=== PATIENT | female | born 2000 | race Caucasian/White ===

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

== ENCOUNTER 2022-06-08 22:04 | Emergency (ER) | payer MEDICAID, OTHER ==
--- OUTSIDE RECORDS SUMMARY | 2022-06-08 22:24 | EXTERNAL MEDICAL SUMMARY RPT | Continuity of Care Document ---
:2000 Author Organization [facility] Address [address] [place] [address] Phone Allergies and Intolerances date description facility type (no date) No Known Drug Allergies [facility] (unkn own) Encounters No information. Functional Status No information. Immunizations No information. Medications No information. Problems No information. Procedures No information. Results/Labs test date author facility value unit interpret ation Result panel 1 (unknown) (no date) (unknown) (unknown) NOT DETECTED (units ( unknown) unknown) Result panel 2 (unknown) (no (unknown) (unknown) (no value) (units (unk nown) date) unknown) (unknown) (no (unknown) (unknown) (no value) (units (unk nown) date) unknown) (unknown) (no (unknown) (unknown) [address] [place] [address] (units (unknown) date) unknown) (unknown) (no (unknown) (unknown) [place], [place] (units ( unknown) date) [id number] unknown) (unknown) (no (unknown) (unknown) CT Scan Report (units (unknown) date) unknown) (unknown) (no (unknown) (unknown) [facility] (units (unknown) date) unknown) (unknown) (no (unknown) (unknown) Signed (units (unkno wn) date) unknown) (unknown) (no (unknown) (unknown) (no value) (units (unk nown) date) unknown) (unknown) (no (unknown) (unknown) 04/07/22 (units (unkno wn) date) unknown) (unknown) (no (unknown) (unknown) ABDOMEN: (units (unkno wn) date) unknown) (unknown) (no (unknown) (unknown) Abdominal Nodes: (units (unknown) date) No retroperitoneal unknown) or mesenteric adenopathy by size criteria. (unknown) (no (unknown) (unknown) Adrenal Glands: (units (unknown) date) Unremarkable. unknown) (unknown) (no (unknown) (unknown) After the (units (unkn own) date) administration of unknown) intravenous contrast, axial sections acquired from (unknown) (no (unknown) (unknown) Approved by: (units (u nknown) date) David Townsend M.D. on unknown) 04/07/2022 at 16:51 (unknown) (no (unknown) (unknown) Biliary ducts: (units (unknown) date) Unremarkable. unknown) (unknown) (no (unknown) (unknown) Bladder: Filled (units (unknown) date) with contrast unknown) (unknown) (no (unknown) (unknown) Bones: No acute (units (unknown) date) or suspicious unknown) osseous abnormality. (unknown) (no (unknown) (unknown) COMPARISON: None. (units (unknown) date) unknown) (unknown) (no (unknown) (unknown) Dictated by: (units (u nknown) date) David Townsend M.D. on unknown) 04/07/2022 at 16:44 (unknown) (no (unknown) (unknown) FINDINGS: (units (unkn own) date) unknown) (unknown) (no (unknown) (unknown) Gallbladder: (units (u nknown) date) Under distended unknown) (unknown) (no (unknown) (unknown) Heart: No (units (unkn own) date) significant unknown) findings. (unknown) (no (unknown) (unknown) IMPRESSION: No (units (unknown) date) acute abdominal unknown) pelvic pathology. Normal appendix. (unknown) (no (unknown) (unknown) INDICATIONS: ruq (units (unknown) date) pain which unknown) radiates to back, left pelvic pain? (unknown) (no (unknown) (unknown) Image quality: (units (unknown) date) Excellent. unknown) (unknown) (no (unknown) (unknown) Kidneys and (units (un known) date) Ureters: unknown) Unremarkable. (unknown) (no (unknown) (unknown) Likely (units (unkno wn) date) physiologic unknown) appearance of the pelvic organs on CT. If there is concern (unknown) (no (unknown) (unknown) Liver: (units (unkno wn) date) Unremarkable. unknown) (unknown) (no (unknown) (unknown) Lung bases: (units (un known) date) Unremarkable. unknown) (unknown) (no (unknown) (unknown) Miscellaneous: No (units (unknown) date) hernias are seen. unknown) (unknown) (no (unknown) (unknown) PELVIS: (units (unkno wn) date) unknown) (unknown) (no (unknown) (unknown) Pancreas: (units (unkn own) date) Unremarkable. unknown) (unknown) (no (unknown) (unknown) Pelvic Nodes: No (units (unknown) date) enlarged lymph unknown) nodes. (unknown) (no (unknown) (unknown) Pelvic Organs: (units (unknown) date) Likely physiologic unknown) appearance on CT (unknown) (no (unknown) (unknown) Peritoneum: No (units (unknown) date) abnormal unknown) intraperitoneal fluid. No free air. (unknown) (no (unknown) (unknown) Spleen: (units (unkno wn) date) Unremarkable. unknown) (unknown) (no (unknown) (unknown) Stomach and (units (un known) date) Bowel: Normal unknown) appendix. No bowel obstruction. (unknown) (no (unknown) (unknown) TECHNIQUE: (units (unk nown) date) unknown) (unknown) (no (unknown) (unknown) Ventral Wall: (units ( unknown) date) Small fat unknown) containing umbilical hernia. (unknown) (no (unknown) (unknown) Vessels: Aorta (units (unknown) date) and inferior vena unknown) cava are normal in size. (unknown) (no (unknown) (unknown) bases to the (units (u nknown) date) pubic symphysis. unknown) Coronal and sagittal reformats were performed. (unknown) (no (unknown) (unknown) collapsed. (units (unk nown) date) unknown) (unknown) (no (unknown) (unknown) of mA and/or kV (units (unknown) date) according to unknown) patient size. (unknown) (no (unknown) (unknown) pathology, (units (unk nown) date) consider unknown) ultrasound. (unknown) (no (unknown) (unknown) radiation dose (units (unknown) date) reduction, the unknown) following was used: automated exposure control, (unknown) (no (unknown) (unknown) [id number] (units (unkno wn) date) unknown) (unknown) (no (unknown) (unknown) Accession Number: (units (unknown) date) [id number] unknown) (unknown) (no (unknown) (unknown) Age/Sex: 21 / F (units (unknown) date) Date of Service: unknown) (unknown) (no (unknown) (unknown) : 2000 (units (unknown) date) Acct:[id number] unknown) (unknown) (no (unknown) (unknown) For (units (unkno wn) date) unknown) (unknown) (no (unknown) (unknown) Gallbladder is (units (unknown) date) unknown) (unknown) (no (unknown) (unknown) Loc: ED (units (unkno wn) date) unknown) (unknown) (no (unknown) (unknown) Ordering (units (unkno wn) date) Provider: unknown) CrewLindsay (unknown) (no (unknown) (unknown) PROCEDURE: CT (units ( unknown) date) ABDOMEN PELVIS W unknown) CON (unknown) (no (unknown) (unknown) Patient: (units (unkno wn) date) [facility] N unknown) MR#: [id number] (unknown) (no (unknown) (unknown) Procedure: CT (units ( unknown) date) abdomen pelvis w unknown) con (unknown) (no (unknown) (unknown) adjustment (units (unk nown) date) unknown) (unknown) (no (unknown) (unknown) for pelvic (units (unk nown) date) unknown) (unknown) (no (unknown) (unknown) the lung (units (unkno wn) date) unknown) Result panel 3 (unknown) (no date) (unknown) (unknown) Negative (units (unkn own) unknown) Result panel 4 (unknown) (no (unknown) (unknown) (no value) (units (unk nown) date) unknown) (unknown) (no (unknown) (unknown) (no value) (units (unk nown) date) unknown) (unknown) (no (unknown) (unknown) Date of (units (unkno wn) date) Service: unknown) 04/07/22 (unknown) (no (unknown) (unknown) (no value) (units (unk nown) date) unknown) (unknown) (no (unknown) (unknown) 100 mg PO BID (units ( unknown) date) Qty: 20 0RF unknown) (unknown) (no (unknown) (unknown) 150 mg PO Q3D (units ( unknown) date) Qty: 2 2RF unknown) (unknown) (no (unknown) (unknown) Allergies (units (unkn own) date) unknown) (unknown) (no (unknown) (unknown) ED Orders (units (unkn own) date) unknown) (unknown) (no (unknown) (unknown) Emergency (units (unkn own) date) Report unknown) (unknown) (no (unknown) (unknown) [facility] (units (unknown) date) [address] unknown) [place] [address] (unknown) (no (unknown) (unknown) Lab Results (units (un known) date) unknown) (unknown) (no (unknown) (unknown) Point of Care (units ( unknown) date) Testing unknown) (unknown) (no (unknown) (unknown) Previous Rx's (units ( unknown) date) unknown) (unknown) (no (unknown) (unknown) Rx (units (unkno wn) date) Instructions: unknown) (unknown) (no (unknown) (unknown) Urine Dip (units (unkn own) date) unknown) (unknown) (no (unknown) (unknown) Vital Signs - 8 (units (unknown) date) hr unknown) (unknown) (no (unknown) (unknown) may repeat (units (unk nown) date) second dose 72 unknown) hrs after first dose if symptoms persist (unknown) (no (unknown) (unknown) (no value) (units (unk nown) date) unknown) (unknown) (no (unknown) (unknown) 04/07/22 (units (unkno wn) date) Range/Units unknown) (unknown) (no (unknown) (unknown) 13:00 (units (unkno wn) date) unknown) (unknown) (no (unknown) (unknown) doxycycline (units (un known) date) hyclate 100 mg unknown) tablet (unknown) (no (unknown) (unknown) fluconazole 150 (units (unknown) date) mg tablet unknown) (unknown) (no (unknown) (unknown) 04/07/22 (units (unkno wn) date) unknown) (unknown) (no (unknown) (unknown) Medication (units (unk nown) date) Instructions unknown) Recorded (unknown) (no (unknown) (unknown) [id number] (units (unkno wn) date) unknown) (unknown) (no (unknown) (unknown) 04/07/22 13:00 (units (unknown) date) unknown) (unknown) (no (unknown) (unknown) 04/07/22 15:24 (units (unknown) date) unknown) (unknown) (no (unknown) (unknown) 04/07/22 15:36 (units (unknown) date) unknown) (unknown) (no (unknown) (unknown) 13:00 (units (unkno wn) date) unknown) (unknown) (no (unknown) (unknown) Age/Sex: 21 / F (units (unknown) date) unknown) (unknown) (no (unknown) (unknown) Allergy/AdvReac (units (unknown) date) Type Severity unknown) Reaction Status Date / Time (unknown) (no (unknown) (unknown) Bedside Urine (units ( unknown) date) Bilirubin - unknown) Negative (unknown) (no (unknown) (unknown) Bedside Urine (units ( unknown) date) Glucose Negative unknown) (unknown) (no (unknown) (unknown) Bedside Urine (units ( unknown) date) Ketone - unknown) Negative (unknown) (no (unknown) (unknown) Bedside Urine (units ( unknown) date) Leukocytes - unknown) Negative (unknown) (no (unknown) (unknown) Bedside Urine (units ( unknown) date) Nitrite - unknown) Negative (unknown) (no (unknown) (unknown) Bedside Urine (units ( unknown) date) Occult Blood - unknown) Negative (unknown) (no (unknown) (unknown) Bedside Urine (units ( unknown) date) Protein - unknown) Negative (unknown) (no (unknown) (unknown) Bedside Urine (units ( unknown) date) Urobilinogen - unknown) Negative (unknown) (no (unknown) (unknown) Bedside Urine (units ( unknown) date) pH 6.0 unknown) (unknown) (no (unknown) (unknown) Blood Pressure (units (unknown) date) 114/74 04/07/22 unknown) 13:00 (unknown) (no (unknown) (unknown) Blood Pressure (units (unknown) date) 114/74 unknown) (unknown) (no (unknown) (unknown) CBC Auto Diff (units ( unknown) date) [Complete Blood unknown) Count AUTO DIFF] Stat (unknown) (no (unknown) (unknown) CMP (units (unkno wn) date) [Comprehensive unknown) Metabolic Panel] Stat (unknown) (no (unknown) (unknown) COVID19 -Nasal (units (unknown) date) RAPID/Pre-Proc unknown) Stat (unknown) (no (unknown) (unknown) CT abdomen (units (unk nown) date) pelvis w con unknown) Stat (unknown) (no (unknown) (unknown) Cardio: denies (units (unknown) date) chest pain, unknown) palpitations, edema (unknown) (no (unknown) (unknown) Chief (units (unkno wn) date) Complaint: unknown) Abdominal Pain (unknown) (no (unknown) (unknown) Chlamydia (units (unkn own) date) Gonorrhea PCR unknown) -URINE Stat (unknown) (no (unknown) (unknown) Course (units (unkno wn) date) unknown) (unknown) (no (unknown) (unknown) : 2000 (units (unknown) date) Acct:[id number] unknown) (unknown) (no (unknown) (unknown) Departure (units (unkn own) date) unknown) (unknown) (no (unknown) (unknown) Discharge Plan (units (unknown) date) unknown) (unknown) (no (unknown) (unknown) ER Physician: (units ( unknown) date) CrewLindsay unknown) QI SPECIALIST (unknown) (no (unknown) (unknown) Esterase (units (unkno wn) date) unknown) (unknown) (no (unknown) (unknown) Exam (units (unkno wn) date) unknown) (unknown) (no (unknown) (unknown) Eyes: denies (units (u nknown) date) visual changes, unknown) eye pain (unknown) (no (unknown) (unknown) GI: Endorses (units (u nknown) date) right upper unknown) quadrant abdominal pain, denies nausea, vomiting, (unknown) (no (unknown) (unknown) : denies (units (unk nown) date) dysuria, unknown) hematuria, urinary retention, frequency or incontinence, (unknown) (no (unknown) (unknown) General (units (unkno wn) date) unknown) (unknown) (no (unknown) (unknown) General: denies (units (unknown) date) fever, chills, unknown) malaise, sweats, fatigue (unknown) (no (unknown) (unknown) HPI - Abdominal (units (unknown) date) Pain unknown) (unknown) (no (unknown) (unknown) HPI narrative: (units (unknown) date) unknown) (unknown) (no (unknown) (unknown) Head/Neck: (units (unk nown) date) denies headache, unknown) neck pain, dizziness (unknown) (no (unknown) (unknown) History of (units (unk nown) date) Present Illness unknown) (unknown) (no (unknown) (unknown) Initial Vital (units ( unknown) date) Signs unknown) (unknown) (no (unknown) (unknown) Initial Vital (units ( unknown) date) Signs: unknown) (unknown) (no (unknown) (unknown) Lab Data (units (unkno wn) date) unknown) (unknown) (no (unknown) (unknown) Labs: (units (unkno wn) date) unknown) (unknown) (no (unknown) (unknown) Lipase Stat (units (un known) date) unknown) (unknown) (no (unknown) (unknown) MDM - Abdominal (units (unknown) date) Pain unknown) (unknown) (no (unknown) (unknown) MSK: denies (units (un known) date) joint pain, unknown) muscle weakness (unknown) (no (unknown) (unknown) Mode of (units (unkno wn) date) arrival: unknown) Ambulatory (unknown) (no (unknown) (unknown) N gonorrhoeae (units ( unknown) date) DNA (PCR) Not unknown) detected (unknown) (no (unknown) (unknown) Narrative: (units (unk nown) date) unknown) (unknown) (no (unknown) (unknown) Neuro: denies (units ( unknown) date) numbness, unknown) tingling (unknown) (no (unknown) (unknown) No Action (units (unkn own) date) unknown) (unknown) (no (unknown) (unknown) No Known Drug (units ( unknown) date) Allergies unknown) Allergy Verified 04/07/22 13:05 (unknown) (no (unknown) (unknown) Ordered: (units (unkno wn) date) unknown) (unknown) (no (unknown) (unknown) Orders (units (unkno wn) date) unknown) (unknown) (no (unknown) (unknown) Oxygen Delivery (units (unknown) date) Method 04/07/22 unknown) 13:00 (unknown) (no (unknown) (unknown) Oxygen Delivery (units (unknown) date) Method Room Air unknown) (unknown) (no (unknown) (unknown) Patient History (units (unknown) date) unknown) (unknown) (no (unknown) (unknown) Patient states (units (unknown) date) that she had a unknown) miscarriage a few months ago and has not had a (unknown) (no (unknown) (unknown) Patient: (units (unkno wn) date) Sites,[facility] N unknown) MR#: [id number] (unknown) (no (unknown) (unknown) Point of care (units ( unknown) date) testing: unknown) (unknown) (no (unknown) (unknown) Test (units (unknown) date) Results Negative unknown) (unknown) (no (unknown) (unknown) Prescriptions: (units (unknown) date) unknown) (unknown) (no (unknown) (unknown) Pulse Oximetry (units (unknown) date) 99 04/07/22 unknown) 13:00 (unknown) (no (unknown) (unknown) Pulse Oximetry (units (unknown) date) 99 unknown) (unknown) (no (unknown) (unknown) Pulse Rate 86 (units ( unknown) date) 04/07/22 13:00 unknown) (unknown) (no (unknown) (unknown) Pulse Rate 86 (units ( unknown) date) unknown) (unknown) (no (unknown) (unknown) Related Data (units (u nknown) date) unknown) (unknown) (no (unknown) (unknown) Respiratory (units (un known) date) Rate 14 04/07/22 unknown) 13:00 (unknown) (no (unknown) (unknown) Respiratory (units (un known) date) Rate 14 unknown) (unknown) (no (unknown) (unknown) Respiratory: (units (u nknown) date) denies dyspnea, unknown) cough, orthopnea (unknown) (no (unknown) (unknown) Review of (units (unkn own) date) Systems unknown) (unknown) (no (unknown) (unknown) Signed By: (units (unk nown) date) unknown) (unknown) (no (unknown) (unknown) Skin: denies (units (u nknown) date) rash, itching, unknown) skin lesions or other (unknown) (no (unknown) (unknown) Smoking Status: (units (unknown) date) Unknown if ever unknown) smoked (unknown) (no (unknown) (unknown) Smoking Status: (units (unknown) date) Unknown if ever unknown) smoked (unknown) (no (unknown) (unknown) Social History (units (unknown) date) (Reviewed unknown) 04/07/22 @ 15:50 by Lindsay Ruiz [facility]) (unknown) (no (unknown) (unknown) Source: patient (units (unknown) date) unknown) (unknown) (no (unknown) (unknown) Stated (units (unkno wn) date) Complaint: unknown) Stomach pains, Feeling unwell (unknown) (no (unknown) (unknown) Substance Use (units ( unknown) date) Type: does not unknown) use (unknown) (no (unknown) (unknown) Temperature (units (un known) date) 97.9 F 04/07/22 unknown) 13:00 (unknown) (no (unknown) (unknown) Temperature (units (un known) date) 97.9 F unknown) (unknown) (no (unknown) (unknown) This is a (units (unkn own) date) 21-year-old unknown) female who presents to the emergency department (unknown) (no (unknown) (unknown) Time Seen by (units (u nknown) date) Provider: unknown) 04/07/22 12:48 (unknown) (no (unknown) (unknown) Ur Chlamydia (units (u nknown) date) DNA (PCR) Not unknown) detected (unknown) (no (unknown) (unknown) Urine Specific (units (unknown) date) [place] 1.010 unknown) (unknown) (no (unknown) (unknown) Vital Signs (units (un known) date) unknown) (unknown) (no (unknown) (unknown) Vital signs: (units (u nknown) date) unknown) (unknown) (no (unknown) (unknown) Wet Prep Tric (units ( unknown) date) BV Miriam Stat unknown) (unknown) (no (unknown) (unknown) alcohol intake (units (unknown) date) frequency: unknown) holidays/special occasions only (unknown) (no (unknown) (unknown) chest around (units (u nknown) date) her mid axillary unknown) 4th and 5th rib space. She denies constipation, (unknown) (no (unknown) (unknown) come and go and (units (unknown) date) do not have any unknown) relation to food. Patient states that sometimes (unknown) (no (unknown) (unknown) complaining (units (un known) date) intermittent unknown) pain in her right upper chest, and in her pelvis which (unknown) (no (unknown) (unknown) constipation or (units (unknown) date) diarrhea, denies unknown) flank pain (unknown) (no (unknown) (unknown) denies abnormal (units (unknown) date) vaginal unknown) discharge (unknown) (no (unknown) (unknown) discharge, (units (unk nown) date) denies fever, unknown) denies chills, denies flank pain, denies weakness. (unknown) (no (unknown) (unknown) doxycycline (units (un known) date) hyclate 100 mg unknown) tablet 100 mg PO BID #20 tabs 12/29/21 (unknown) (no (unknown) (unknown) fluconazole 150 (units (unknown) date) mg tablet 150 mg unknown) PO Q3D 2 doses #2 tabs 12/29/21 (unknown) (no (unknown) (unknown) history of an (units ( unknown) date) ovarian cyst, unknown) pelvic inflammatory disease on 12/28/2021 and was (unknown) (no (unknown) (unknown) improved (units (unkno wn) date) without unknown) complications. She denies any recent fever or other illness. (unknown) (no (unknown) (unknown) normal period (units ( unknown) date) since, her last unknown) menstrual cycle was March 19, 2022. Patient has a (unknown) (no (unknown) (unknown) she does not (units (u nknown) date) have any nausea, unknown) changes to her stool, she denies abnormal vaginal (unknown) (no (unknown) (unknown) she is starving (units (unknown) date) and other times unknown) she is having sharp pain in the right upper (unknown) (no (unknown) (unknown) treated with (units (un known) date) doxycycline, unknown) fluconazole for Miriam vaginitis and reports that she Result panel 5 (unknown) (no (unknown) (unknown) (no value) (units (unk nown) date) unknown) (unknown) (no (unknown) (unknown) (no value) (units (unk nown) date) unknown) (unknown) (no (unknown) (unknown) Date of Service: (units (unknown) date) 04/07/22 unknown) (unknown) (no (unknown) (unknown) (no value) (units (unk nown) date) unknown) (unknown) (no (unknown) (unknown) 100 mg PO BID (units ( unknown) date) Qty: 20 0RF unknown) (unknown) (no (unknown) (unknown) 150 mg PO Q3D (units ( unknown) date) Qty: 2 2RF unknown) (unknown) (no (unknown) (unknown) Allergies (units (unkn own) date) unknown) (unknown) (no (unknown) (unknown) ED Orders (units (unkn own) date) unknown) (unknown) (no (unknown) (unknown) Emergency Report (units (unknown) date) unknown) (unknown) (no (unknown) (unknown) [facility] (units (unknown) date) [address] [place] [address] unknown) [place] [address] (unknown) (no (unknown) (unknown) Lab Results (units (un known) date) unknown) (unknown) (no (unknown) (unknown) Point of Care (units ( unknown) date) Testing unknown) (unknown) (no (unknown) (unknown) Previous Rx's (units ( unknown) date) unknown) (unknown) (no (unknown) (unknown) Rx Instructions: (units (unknown) date) unknown) (unknown) (no (unknown) (unknown) Urine Dip (units (unkn own) date) unknown) (unknown) (no (unknown) (unknown) Vital Signs - 8 (units (unknown) date) hr unknown) (unknown) (no (unknown) (unknown) may repeat second (units (unknown) date) dose 72 hrs after unknown) first dose if symptoms persist (unknown) (no (unknown) (unknown) (no value) (units (unk nown) date) unknown) (unknown) (no (unknown) (unknown) 04/07/22 (units (unkno wn) date) Range/Units unknown) (unknown) (no (unknown) (unknown) 13:00 (units (unkno wn) date) unknown) (unknown) (no (unknown) (unknown) doxycycline (units (un known) date) hyclate 100 mg unknown) tablet (unknown) (no (unknown) (unknown) fluconazole 150 (units (unknown) date) mg tablet unknown) (unknown) (no (unknown) (unknown) 04/07/22 (units (unkno wn) date) unknown) (unknown) (no (unknown) (unknown) Medication (units (k nown) date) Instructions unknown) Recorded (unknown) (no (unknown) (unknown) [id number] (units (unkno wn) date) unknown) (unknown) (no (unknown) (unknown) 04/07/22 13:00 (units (unknown) date) unknown) (unknown) (no (unknown) (unknown) 04/07/22 15:24 (units (unknown) date) unknown) (unknown) (no (unknown) (unknown) 04/07/22 15:36 (units (unknown) date) unknown) (unknown) (no (unknown) (unknown) 13:00 (units (unkno wn) date) unknown) (unknown) (no (unknown) (unknown) Age/Sex: 21 / F (units (unknown) date) unknown) (unknown) (no (unknown) (unknown) Allergy/AdvReac (units (unknown) date) Type Severity unknown) Reaction Status Date / Time (unknown) (no (unknown) (unknown) Bedside Urine (units ( unknown) date) Bilirubin - unknown) Negative (unknown) (no (unknown) (unknown) Bedside Urine (units ( unknown) date) Glucose Negative unknown) (unknown) (no (unknown) (unknown) Bedside Urine (units ( unknown) date) Ketone - Negative unknown) (unknown) (no (unknown) (unknown) Bedside Urine (units ( unknown) date) Leukocytes - unknown) Negative (unknown) (no (unknown) (unknown) Bedside Urine (units ( unknown) date) Nitrite - Negative unknown) (unknown) (no (unknown) (unknown) Bedside Urine (units ( unknown) date) Occult Blood - unknown) Negative (unknown) (no (unknown) (unknown) Bedside Urine (units ( unknown) date) Protein - Negative unknown) (unknown) (no (unknown) (unknown) Bedside Urine (units ( unknown) date) Urobilinogen - unknown) Negative (unknown) (no (unknown) (unknown) Bedside Urine pH (units (unknown) date) 6.0 unknown) (unknown) (no (unknown) (unknown) Blood Pressure (units (unknown) date) 114/74 04/07/22 unknown) 13:00 (unknown) (no (unknown) (unknown) Blood Pressure (units (unknown) date) 114 unknown) (unknown) (no (unknown) (unknown) CBC Auto Diff (units ( unknown) date) [Complete Blood unknown) Count AUTO DIFF] Stat (unknown) (no (unknown) (unknown) CMP (units (unkno wn) date) [Comprehensive unknown) Metabolic Panel] Stat (unknown) (no (unknown) (unknown) COVID19 -Nasal (units (unknown) date) RAPID/Pre-Proc unknown) Stat (unknown) (no (unknown) (unknown) CT abdomen pelvis (units (unknown) date) w con Stat unknown) (unknown) (no (unknown) (unknown) Cardio: denies (units (unknown) date) chest pain, unknown) palpitations, edema (unknown) (no (unknown) (unknown) Cardiovascular: (units (unknown) date) regular rate and unknown) rhythm, no peripheral edema, warm extremities (unknown) (no (unknown) (unknown) Chief Complaint: (units (unknown) date) Abdominal Pain unknown) (unknown) (no (unknown) (unknown) Chlamydia (units (unkn own) date) Gonorrhea PCR unknown) -URINE Stat (unknown) (no (unknown) (unknown) Course (units (unkno wn) date) unknown) (unknown) (no (unknown) (unknown) : 2000 (units (unknown) date) Acct:[id number] unknown) (unknown) (no (unknown) (unknown) Departure (units (unkn own) date) unknown) (unknown) (no (unknown) (unknown) Discharge Plan (units (unknown) date) unknown) (unknown) (no (unknown) (unknown) ER Physician: (units ( unknown) date) Lindsay Ruiz unknown) QI SPECIALIST (unknown) (no (unknown) (unknown) Esterase (units (unkno wn) date) unknown) (unknown) (no (unknown) (unknown) Exam (units (unkno wn) date) unknown) (unknown) (no (unknown) (unknown) Exam Narrative: (units (unknown) date) unknown) (unknown) (no (unknown) (unknown) Eyes: denies (units (u nknown) date) visual changes, unknown) eye pain (unknown) (no (unknown) (unknown) Eyes: equal round (units (unknown) date) and reactive, unknown) EOMI, conjunctiva normal (unknown) (no (unknown) (unknown) GI: Endorses (units (u nknown) date) right upper unknown) quadrant abdominal pain, denies nausea, vomiting, (unknown) (no (unknown) (unknown) GI: abdomen soft, (units (unknown) date) nontender to unknown) palpation, nondistended, no masses, no exquisite (unknown) (no (unknown) (unknown) : denies (units (unk nown) date) dysuria, unknown) hematuria, urinary retention, frequency or incontinence, (unknown) (no (unknown) (unknown) General (units (unkno wn) date) unknown) (unknown) (no (unknown) (unknown) General: (units (unkno wn) date) cooperative, unknown) comfortable, in no acute distress, well groomed (unknown) (no (unknown) (unknown) General: denies (units (unknown) date) fever, chills, unknown) malaise, sweats, fatigue (unknown) (no (unknown) (unknown) HPI - Abdominal (units (unknown) date) Pain unknown) (unknown) (no (unknown) (unknown) HPI narrative: (units (unknown) date) unknown) (unknown) (no (unknown) (unknown) Head/Neck: denies (units (unknown) date) headache, neck unknown) pain, dizziness (unknown) (no (unknown) (unknown) Head: atraumatic, (units (unknown) date) symmetrical facial unknown) expressions (unknown) (no (unknown) (unknown) History of (units (unk nown) date) Present Illness unknown) (unknown) (no (unknown) (unknown) Independently (units ( unknown) date) reviewed vitals unknown) signs and nursing notes. (unknown) (no (unknown) (unknown) Initial Vital (units ( unknown) date) Signs unknown) (unknown) (no (unknown) (unknown) Initial Vital (units ( unknown) date) Signs: unknown) (unknown) (no (unknown) (unknown) Lab Data (units (unkno wn) date) unknown) (unknown) (no (unknown) (unknown) Labs: (units (unkno wn) date) unknown) (unknown) (no (unknown) (unknown) Lipase Stat (units (un known) date) unknown) (unknown) (no (unknown) (unknown) MDM - Abdominal (units (unknown) date) Pain unknown) (unknown) (no (unknown) (unknown) MSK: denies joint (units (unknown) date) pain, muscle unknown) weakness (unknown) (no (unknown) (unknown) MSK: moves all (units (unknown) date) extremities, unknown) neurovascularly intact, no weakness, normal tone (unknown) (no (unknown) (unknown) Mode of arrival: (units (unknown) date) Ambulatory unknown) (unknown) (no (unknown) (unknown) Mouth/Throat: (units ( unknown) date) moist mucus unknown) membranes (unknown) (no (unknown) (unknown) N gonorrhoeae DNA (units (unknown) date) (PCR) Not detected unknown) (unknown) (no (unknown) (unknown) Narrative (units (unkn own) date) unknown) (unknown) (no (unknown) (unknown) Narrative: (units (unk nown) date) unknown) (unknown) (no (unknown) (unknown) Neck: supple (units (u nknown) date) unknown) (unknown) (no (unknown) (unknown) Neuro: denies (units ( unknown) date) numbness, tingling unknown) (unknown) (no (unknown) (unknown) Neuro: normal (units ( unknown) date) speech and unknown) cognition, A+O x3 (unknown) (no (unknown) (unknown) No Action (units (unkn own) date) unknown) (unknown) (no (unknown) (unknown) No Known Drug (units ( unknown) date) Allergies Allergy unknown) Verified 04/07/22 13:05 (unknown) (no (unknown) (unknown) Nose: nares (units (un known) date) patent, no unknown) rhinorrhea (unknown) (no (unknown) (unknown) Ordered: (units (unkno wn) date) unknown) (unknown) (no (unknown) (unknown) Orders (units (unkno wn) date) unknown) (unknown) (no (unknown) (unknown) Oxygen Delivery (units (unknown) date) Method 04/07/22 unknown) 13:00 (unknown) (no (unknown) (unknown) Oxygen Delivery (units (unknown) date) Method Room Air unknown) (unknown) (no (unknown) (unknown) Patient History (units (unknown) date) unknown) (unknown) (no (unknown) (unknown) Patient reports (units (unknown) date) that she is been unknown) doing warm compresses and this has been (unknown) (no (unknown) (unknown) Patient states (units (unknown) date) that she had a unknown) miscarriage a few months ago and has not had a (unknown) (no (unknown) (unknown) Patient: (units (unkno wn) date) Sites,[facility] N unknown) MR#: [id number] (unknown) (no (unknown) (unknown) Point of care (units ( unknown) date) testing: unknown) (unknown) (no (unknown) (unknown) Test (units (unknown) date) Results Negative unknown) (unknown) (no (unknown) (unknown) Prescriptions: (units (unknown) date) unknown) (unknown) (no (unknown) (unknown) Psych: mental (units ( unknown) date) status is grossly unknown) normal, congruent mood, normal affect, pleasant (unknown) (no (unknown) (unknown) Pulse Oximetry 99 (units (unknown) date) 04/07/22 13:00 unknown) (unknown) (no (unknown) (unknown) Pulse Oximetry 99 (units (unknown) date) unknown) (unknown) (no (unknown) (unknown) Pulse Rate 86 (units ( unknown) date) 04/07/22 13:00 unknown) (unknown) (no (unknown) (unknown) Pulse Rate 86 (units ( unknown) date) unknown) (unknown) (no (unknown) (unknown) Related Data (units (u nknown) date) unknown) (unknown) (no (unknown) (unknown) Respiratory Rate (units (unknown) date) 14 04/07/22 13:00 unknown) (unknown) (no (unknown) (unknown) Respiratory Rate (units (unknown) date) 14 unknown) (unknown) (no (unknown) (unknown) Respiratory: (units (u nknown) date) denies dyspnea, unknown) cough, orthopnea (unknown) (no (unknown) (unknown) Respiratory: (units (u nknown) date) normal effort, unknown) able to speak in complete sentences, no audible (unknown) (no (unknown) (unknown) Review of Systems (units (unknown) date) unknown) (unknown) (no (unknown) (unknown) Signed By: (units (unk nown) date) unknown) (unknown) (no (unknown) (unknown) Skin: brisk (units (un known) date) capillary refill, unknown) no rash, no erythema (unknown) (no (unknown) (unknown) Skin: denies (units (u nknown) date) rash, itching, unknown) skin lesions or other (unknown) (no (unknown) (unknown) Smoking Status: (units (unknown) date) Unknown if ever unknown) smoked (unknown) (no (unknown) (unknown) Smoking Status: (units (unknown) date) Unknown if ever unknown) smoked (unknown) (no (unknown) (unknown) Social History (units (unknown) date) (Reviewed 04/07/22 unknown) @ 15:50 by STEVE Mohan) (unknown) (no (unknown) (unknown) Source: patient (units (unknown) date) unknown) (unknown) (no (unknown) (unknown) Stated Complaint: (units (unknown) date) Stomach pains, unknown) Feeling unwell (unknown) (no (unknown) (unknown) Substance Use (units ( unknown) date) Type: does not use unknown) (unknown) (no (unknown) (unknown) Temperature 97.9 (units (unknown) date) F 04/07/22 13:00 unknown) (unknown) (no (unknown) (unknown) Temperature 97.9 (units (unknown) date) F unknown) (unknown) (no (unknown) (unknown) This is a (units (unkn own) date) 21-year-old female unknown) who presents to the emergency department (unknown) (no (unknown) (unknown) Time Seen by (units (u nknown) date) Provider: 04/07/22 unknown) 12:48 (unknown) (no (unknown) (unknown) Ur Chlamydia DNA (units (unknown) date) (PCR) Not detected unknown) (unknown) (no (unknown) (unknown) Urine Specific (units (unknown) date) [place] 1.010 unknown) (unknown) (no (unknown) (unknown) Vital Signs (units (un known) date) unknown) (unknown) (no (unknown) (unknown) Vital signs: (units (u nknown) date) unknown) (unknown) (no (unknown) (unknown) Wet Prep Tric BV (units (unknown) date) Miriam Stat unknown) (unknown) (no (unknown) (unknown) alcohol intake (units (unknown) date) frequency: unknown) holidays/special occasions only (unknown) (no (unknown) (unknown) and cooperative (units (unknown) date) unknown) (unknown) (no (unknown) (unknown) breath (units (unkno wn) date) unknown) (unknown) (no (unknown) (unknown) chest around her (units (unknown) date) mid axillary 4th unknown) and 5th rib space. She denies constipation, (unknown) (no (unknown) (unknown) come and go and do (units (unknown) date) not have any unknown) relation to food. Patient states that sometimes (unknown) (no (unknown) (unknown) complaining (units (un known) date) intermittent pain unknown) in her right upper chest, and in her pelvis which (unknown) (no (unknown) (unknown) constipation or (units (unknown) date) diarrhea, denies unknown) flank pain (unknown) (no (unknown) (unknown) denies abnormal (units (unknown) date) vaginal discharge unknown) (unknown) (no (unknown) (unknown) discharge, denies (units (unknown) date) fever, denies unknown) chills, denies flank pain, denies weakness. (unknown) (no (unknown) (unknown) doxycycline (units (un known) date) hyclate 100 mg unknown) tablet 100 mg PO BID #20 tabs 12/29/21 (unknown) (no (unknown) (unknown) fluconazole 150 (units (unknown) date) mg tablet 150 mg unknown) PO Q3D 2 doses #2 tabs 12/29/21 (unknown) (no (unknown) (unknown) helpful, she (units (u nknown) date) denies taking any unknown) medication prior to arrival, and states she does (unknown) (no (unknown) (unknown) history of an (units ( unknown) date) ovarian cyst, unknown) pelvic inflammatory disease on 12/28/2021 and was (unknown) (no (unknown) (unknown) improved without (units (unknown) date) complications. She unknown) denies any recent fever or other illness. (unknown) (no (unknown) (unknown) normal period (units ( unknown) date) since, her last unknown) menstrual cycle was March 19, 2022. Patient has a (unknown) (no (unknown) (unknown) not like to take (units (unknown) date) medications. She unknown) states it is worse when she takes a deep (unknown) (no (unknown) (unknown) she does not have (units (unknown) date) any nausea, unknown) changes to her stool, she denies abnormal vaginal (unknown) (no (unknown) (unknown) she is starving (units (unknown) date) and other times unknown) she is having sharp pain in the right upper (unknown) (no (unknown) (unknown) tenderness with (units (unknown) date) exam, without unknown) guarding or rebound. (unknown) (no (unknown) (unknown) treated with (units (un known) date) doxycycline, unknown) fluconazole for Miriam vaginitis and reports that she (unknown) (no (unknown) (unknown) wheezing, (units (unkn own) date) stridor, or rales. unknown) No retractions or tachypnea. Result panel 6 (unknown) (no (unknown) (unknown) (no value) (units (unk nown) date) unknown) (unknown) (no (unknown) (unknown) (no value) (units (unk nown) date) unknown) (unknown) (no (unknown) (unknown) Date of Service: (units (unknown) date) 04/07/22 unknown) (unknown) (no (unknown) (unknown) (no value) (units (unk nown) date) unknown) (unknown) (no (unknown) (unknown) 100 mg PO BID (units ( unknown) date) Qty: 20 0RF unknown) (unknown) (no (unknown) (unknown) 150 mg PO Q3D (units ( unknown) date) Qty: 2 2RF unknown) (unknown) (no (unknown) (unknown) Allergies (units (unkn own) date) unknown) (unknown) (no (unknown) (unknown) ED Orders (units (unkn own) date) unknown) (unknown) (no (unknown) (unknown) Emergency Report (units (unknown) date) unknown) (unknown) (no (unknown) (unknown) [facility] (units (unknown) date) [address] [place] [address] unknown) [place] [address] (unknown) (no (unknown) (unknown) Lab Results (units (un known) date) unknown) (unknown) (no (unknown) (unknown) Point of Care (units ( unknown) date) Testing unknown) (unknown) (no (unknown) (unknown) Previous Rx's (units ( unknown) date) unknown) (unknown) (no (unknown) (unknown) Rx Instructions: (units (unknown) date) unknown) (unknown) (no (unknown) (unknown) Urine Dip (units (unkn own) date) unknown) (unknown) (no (unknown) (unknown) Vital Signs - 8 (units (unknown) date) hr unknown) (unknown) (no (unknown) (unknown) may repeat second (units (unknown) date) dose 72 hrs after unknown) first dose if symptoms persist (unknown) (no (unknown) (unknown) (no value) (units (unk nown) date) unknown) (unknown) (no (unknown) (unknown) 04/07/22 04/07/22 (units (unknown) date) Range/Units unknown) (unknown) (no (unknown) (unknown) 13:00 15:24 (units (un known) date) unknown) (unknown) (no (unknown) (unknown) doxycycline (units (un known) date) hyclate 100 mg unknown) tablet (unknown) (no (unknown) (unknown) fluconazole 150 (units (unknown) date) mg tablet unknown) (unknown) (no (unknown) (unknown) 04/07/22 (units (unkno wn) date) unknown) (unknown) (no (unknown) (unknown) Medication (units (unk nown) date) Instructions unknown) Recorded (unknown) (no (unknown) (unknown) [id number] (units (unkno wn) date) unknown) (unknown) (no (unknown) (unknown) 04/07/22 13:00 (units (unknown) date) unknown) (unknown) (no (unknown) (unknown) 04/07/22 15:24 (units (unknown) date) unknown) (unknown) (no (unknown) (unknown) 04/07/22 15:36 (units (unknown) date) unknown) (unknown) (no (unknown) (unknown) 04/07/22 15:50 (units (unknown) date) unknown) (unknown) (no (unknown) (unknown) 13:00 (units (unkno wn) date) unknown) (unknown) (no (unknown) (unknown) Age/Sex: 21 / F (units (unknown) date) unknown) (unknown) (no (unknown) (unknown) Allergy/AdvReac (units (unknown) date) Type Severity unknown) Reaction Status Date / Time (unknown) (no (unknown) (unknown) Bedside Urine (units ( unknown) date) Bilirubin - unknown) Negative (unknown) (no (unknown) (unknown) Bedside Urine (units ( unknown) date) Glucose Negative unknown) (unknown) (no (unknown) (unknown) Bedside Urine (units ( unknown) date) Ketone - Negative unknown) (unknown) (no (unknown) (unknown) Bedside Urine (units ( unknown) date) Leukocytes - unknown) Negative (unknown) (no (unknown) (unknown) Bedside Urine (units ( unknown) date) Nitrite - Negative unknown) (unknown) (no (unknown) (unknown) Bedside Urine (units ( unknown) date) Occult Blood - unknown) Negative (unknown) (no (unknown) (unknown) Bedside Urine (units ( unknown) date) Protein - Negative unknown) (unknown) (no (unknown) (unknown) Bedside Urine (units ( unknown) date) Urobilinogen - unknown) Negative (unknown) (no (unknown) (unknown) Bedside Urine pH (units (unknown) date) 6.0 unknown) (unknown) (no (unknown) (unknown) Blood Pressure (units (unknown) date) 114/74 04/07/22 unknown) 13:00 (unknown) (no (unknown) (unknown) Blood Pressure (units (unknown) date) 114/74 unknown) (unknown) (no (unknown) (unknown) CBC Auto Diff (units ( unknown) date) [Complete Blood unknown) Count AUTO DIFF] Stat (unknown) (no (unknown) (unknown) CMP (units (unkno wn) date) [Comprehensive unknown) Metabolic Panel] Stat (unknown) (no (unknown) (unknown) COVID19 -Nasal (units (unknown) date) RAPID/Pre-Proc unknown) Stat (unknown) (no (unknown) (unknown) CT abdomen pelvis (units (unknown) date) w con Stat unknown) (unknown) (no (unknown) (unknown) Cardio: denies (units (unknown) date) chest pain, unknown) palpitations, edema (unknown) (no (unknown) (unknown) Cardiovascular: (units (unknown) date) regular rate and unknown) rhythm, no peripheral edema, warm extremities (unknown) (no (unknown) (unknown) Chief Complaint: (units (unknown) date) Abdominal Pain unknown) (unknown) (no (unknown) (unknown) Chlamydia (units (unkn own) date) Gonorrhea PCR unknown) -URINE Stat (unknown) (no (unknown) (unknown) Course (units (unkno wn) date) unknown) (unknown) (no (unknown) (unknown) : 2000 (units (unknown) date) Acct:[id number] unknown) (unknown) (no (unknown) (unknown) Departure (units (unkn own) date) unknown) (unknown) (no (unknown) (unknown) Discharge Plan (units (unknown) date) unknown) (unknown) (no (unknown) (unknown) EKG-12 Lead Stat (units (unknown) date) unknown) (unknown) (no (unknown) (unknown) ER Physician: (units ( unknown) date) Crew,Lindsay Hedrick unknown) QI SPECIALIST (unknown) (no (unknown) (unknown) Esterase (units (unkno wn) date) unknown) (unknown) (no (unknown) (unknown) Exam (units (unkno wn) date) unknown) (unknown) (no (unknown) (unknown) Exam Narrative: (units (unknown) date) unknown) (unknown) (no (unknown) (unknown) Eyes: denies (units (u nknown) date) visual changes, unknown) eye pain (unknown) (no (unknown) (unknown) Eyes: equal round (units (unknown) date) and reactive, unknown) EOMI, conjunctiva normal (unknown) (no (unknown) (unknown) GI: Endorses (units (u nknown) date) right upper unknown) quadrant abdominal pain, denies nausea, vomiting, (unknown) (no (unknown) (unknown) GI: abdomen soft, (units (unknown) date) nontender to unknown) palpation, nondistended, no masses, no exquisite (unknown) (no (unknown) (unknown) : denies (units (unk nown) date) dysuria, unknown) hematuria, urinary retention, frequency or incontinence, (unknown) (no (unknown) (unknown) General (units (unkno wn) date) unknown) (unknown) (no (unknown) (unknown) General: (units (unkno wn) date) cooperative, unknown) comfortable, in no acute distress, well groomed (unknown) (no (unknown) (unknown) General: denies (units (unknown) date) fever, chills, unknown) malaise, sweats, fatigue (unknown) (no (unknown) (unknown) HPI - Abdominal (units (unknown) date) Pain unknown) (unknown) (no (unknown) (unknown) HPI narrative: (units (unknown) date) unknown) (unknown) (no (unknown) (unknown) Head/Neck: denies (units (unknown) date) headache, neck unknown) pain, dizziness (unknown) (no (unknown) (unknown) Head: atraumatic, (units (unknown) date) symmetrical facial unknown) expressions (unknown) (no (unknown) (unknown) History of (units (unk nown) date) Present Illness unknown) (unknown) (no (unknown) (unknown) Independently (units ( unknown) date) reviewed vitals unknown) signs and nursing notes. (unknown) (no (unknown) (unknown) Initial Vital (units ( unknown) date) Signs unknown) (unknown) (no (unknown) (unknown) Initial Vital (units ( unknown) date) Signs: unknown) (unknown) (no (unknown) (unknown) Lab Data (units (unkno wn) date) unknown) (unknown) (no (unknown) (unknown) Labs: (units (unkno wn) date) unknown) (unknown) (no (unknown) (unknown) Lipase Stat (units (un known) date) unknown) (unknown) (no (unknown) (unknown) MDM - Abdominal (units (unknown) date) Pain unknown) (unknown) (no (unknown) (unknown) MDM Narrative (units ( unknown) date) unknown) (unknown) (no (unknown) (unknown) MSK: denies joint (units (unknown) date) pain, muscle unknown) weakness (unknown) (no (unknown) (unknown) MSK: moves all (units (unknown) date) extremities, unknown) neurovascularly intact, no weakness, normal tone (unknown) (no (unknown) (unknown) Medical decision (units (unknown) date) making narrative: unknown) (unknown) (no (unknown) (unknown) Mode of arrival: (units (unknown) date) Ambulatory unknown) (unknown) (no (unknown) (unknown) Mouth/Throat: (units ( unknown) date) moist mucus unknown) membranes (unknown) (no (unknown) (unknown) N gonorrhoeae DNA (units (unknown) date) (PCR) Not detected unknown) (unknown) (no (unknown) (unknown) Narrative (units (unkn own) date) unknown) (unknown) (no (unknown) (unknown) Narrative: (units (unk nown) date) unknown) (unknown) (no (unknown) (unknown) Neck: supple (units (u nknown) date) unknown) (unknown) (no (unknown) (unknown) Neuro: denies (units ( unknown) date) numbness, tingling unknown) (unknown) (no (unknown) (unknown) Neuro: normal (units ( unknown) date) speech and unknown) cognition, A+O x3 (unknown) (no (unknown) (unknown) No Action (units (unkn own) date) unknown) (unknown) (no (unknown) (unknown) No Known Drug (units ( unknown) date) Allergies Allergy unknown) Verified 04/07/22 13:05 (unknown) (no (unknown) (unknown) Nose: nares (units (un known) date) patent, no unknown) rhinorrhea (unknown) (no (unknown) (unknown) Ordered: (units (unkno wn) date) unknown) (unknown) (no (unknown) (unknown) Orders (units (unkno wn) date) unknown) (unknown) (no (unknown) (unknown) Oxygen Delivery (units (unknown) date) Method 04/07/22 unknown) 13:00 (unknown) (no (unknown) (unknown) Oxygen Delivery (units (unknown) date) Method Room Air unknown) (unknown) (no (unknown) (unknown) Patient History (units (unknown) date) unknown) (unknown) (no (unknown) (unknown) Patient reports (units (unknown) date) that she is been unknown) doing warm compresses and this has been (unknown) (no (unknown) (unknown) Patient states (units (unknown) date) that she had a unknown) miscarriage a few months ago and has not had a (unknown) (no (unknown) (unknown) Patient: (units (unkno wn) date) Sites,[facility] unknown) MR#: [id number] (unknown) (no (unknown) (unknown) Point of care (units ( unknown) date) testing: unknown) (unknown) (no (unknown) (unknown) Test (units (unknown) date) Results Negative unknown) (unknown) (no (unknown) (unknown) Prescriptions: (units (unknown) date) unknown) (unknown) (no (unknown) (unknown) Psych: mental (units ( unknown) date) status is grossly unknown) normal, congruent mood, normal affect, pleasant (unknown) (no (unknown) (unknown) Pulse Oximetry 99 (units (unknown) date) 04/07/22 13:00 unknown) (unknown) (no (unknown) (unknown) Pulse Oximetry 99 (units (unknown) date) unknown) (unknown) (no (unknown) (unknown) Pulse Rate 86 (units ( unknown) date) 04/07/22 13:00 unknown) (unknown) (no (unknown) (unknown) Pulse Rate 86 (units ( unknown) date) unknown) (unknown) (no (unknown) (unknown) Related Data (units (u nknown) date) unknown) (unknown) (no (unknown) (unknown) Respiratory Rate (units (unknown) date) 14 04/07/22 13:00 unknown) (unknown) (no (unknown) (unknown) Respiratory Rate (units (unknown) date) 14 unknown) (unknown) (no (unknown) (unknown) Respiratory: (units (u nknown) date) denies dyspnea, unknown) cough, orthopnea (unknown) (no (unknown) (unknown) Respiratory: (units (u nknown) date) normal effort, unknown) able to speak in complete sentences, no audible (unknown) (no (unknown) (unknown) Review of Systems (units (unknown) date) unknown) (unknown) (no (unknown) (unknown) SARS-CoV-2 (PCR) (units (unknown) date) Negative unknown) (Negative) (unknown) (no (unknown) (unknown) Signed By: (units (unk nown) date) unknown) (unknown) (no (unknown) (unknown) Skin: brisk (units (un known) date) capillary refill, unknown) no rash, no erythema (unknown) (no (unknown) (unknown) Skin: denies (units (u nknown) date) rash, itching, unknown) skin lesions or other (unknown) (no (unknown) (unknown) Smoking Status: (units (unknown) date) Unknown if ever unknown) smoked (unknown) (no (unknown) (unknown) Smoking Status: (units (unknown) date) Unknown if ever unknown) smoked (unknown) (no (unknown) (unknown) Social History (units (unknown) date) (Reviewed 04/07/22 unknown) @ 15:50 by STEVE Mohan) (unknown) (no (unknown) (unknown) Source: patient (units (unknown) date) unknown) (unknown) (no (unknown) (unknown) Stated Complaint: (units (unknown) date) Stomach pains, unknown) Feeling unwell (unknown) (no (unknown) (unknown) Substance Use (units ( unknown) date) Type: does not use unknown) (unknown) (no (unknown) (unknown) Temperature 97.9 (units (unknown) date) F 04/07/22 13:00 unknown) (unknown) (no (unknown) (unknown) Temperature 97.9 (units (unknown) date) F unknown) (unknown) (no (unknown) (unknown) This is a (units (unkn own) date) 21-year-old female unknown) who presents to the emergency department (unknown) (no (unknown) (unknown) Time Seen by (units (u nknown) date) Provider: 04/07/22 unknown) 12:48 (unknown) (no (unknown) (unknown) Troponin + CK (units ( unknown) date) Cardiac Panel Stat unknown) (unknown) (no (unknown) (unknown) Ur Chlamydia DNA (units (unknown) date) (PCR) Not detected unknown) (unknown) (no (unknown) (unknown) Urine Specific (units (unknown) date) [place] 1.010 unknown) (unknown) (no (unknown) (unknown) Vital Signs (units (un known) date) unknown) (unknown) (no (unknown) (unknown) Vital signs: (units (u nknown) date) unknown) (unknown) (no (unknown) (unknown) alcohol intake (units (unknown) date) frequency: unknown) holidays/special occasions only (unknown) (no (unknown) (unknown) and cooperative (units (unknown) date) unknown) (unknown) (no (unknown) (unknown) breath (units (unkno wn) date) unknown) (unknown) (no (unknown) (unknown) chest around her (units (unknown) date) mid axillary 4th unknown) and 5th rib space. She denies constipation, (unknown) (no (unknown) (unknown) come and go and do (units (unknown) date) not have any unknown) relation to food. Patient states that sometimes (unknown) (no (unknown) (unknown) complaining (units (un known) date) intermittent pain unknown) in her right upper chest, and in her pelvis which (unknown) (no (unknown) (unknown) complaining of (units (unknown) date) right-sided rib unknown) pain, pelvic pain, irregular periods since her (unknown) (no (unknown) (unknown) constipation or (units (unknown) date) diarrhea, denies unknown) flank pain (unknown) (no (unknown) (unknown) denies abnormal (units (unknown) date) vaginal discharge unknown) (unknown) (no (unknown) (unknown) denies fever, (units ( unknown) date) nausea vomiting, unknown) changes to her stool, shortness of breath, (unknown) (no (unknown) (unknown) discharge, denies (units (unknown) date) fever, denies unknown) chills, denies flank pain, denies weakness. (unknown) (no (unknown) (unknown) doxycycline (units (un known) date) hyclate 100 mg unknown) tablet 100 mg PO BID #20 tabs 12/29/21 (unknown) (no (unknown) (unknown) fluconazole 150 (units (unknown) date) mg tablet 150 mg unknown) PO Q3D 2 doses #2 tabs 12/29/21 (unknown) (no (unknown) (unknown) helpful, she (units (u nknown) date) denies taking any unknown) medication prior to arrival, and states she does (unknown) (no (unknown) (unknown) history of an (units ( unknown) date) ovarian cyst, unknown) pelvic inflammatory disease on 12/28/2021 and was (unknown) (no (unknown) (unknown) improved without (units (unknown) date) complications. She unknown) denies any recent fever or other illness. (unknown) (no (unknown) (unknown) miscarriage a few (units (unknown) date) months ago and unknown) denies any systemic symptoms of illness. She (unknown) (no (unknown) (unknown) normal period (units ( unknown) date) since, her last unknown) menstrual cycle was March 19, 2022. Patient has a (unknown) (no (unknown) (unknown) not like to take (units (unknown) date) medications. She unknown) states it is worse when she takes a deep (unknown) (no (unknown) (unknown) she does not have (units (unknown) date) any nausea, unknown) changes to her stool, she denies abnormal vaginal (unknown) (no (unknown) (unknown) she is starving (units (unknown) date) and other times unknown) she is having sharp pain in the right upper (unknown) (no (unknown) (unknown) tenderness with (units (unknown) date) exam, without unknown) guarding or rebound. (unknown) (no (unknown) (unknown) treated with (units (un known) date) doxycycline, unknown) fluconazole for Miriam vaginitis and reports that she (unknown) (no (unknown) (unknown) wheezing, (units (unkn own) date) imbalance, unknown) dizziness, or any other symptom. (unknown) (no (unknown) (unknown) wheezing, (units (unkn own) date) stridor, or rales. unknown) No retractions or tachypnea. Result panel 7 (unknown) (no date) (unknown) (unknown) 0.9 % (unkn own) (unknown) (no date) (unknown) (unknown) 1.9 % (unkn own) (unknown) (no date) (unknown) (unknown) 10.6 % (unkn own) (unknown) (no date) (unknown) (unknown) 100 /uL (unkn own) (unknown) (no date) (unknown) (unknown) 100 /uL (unkn own) (unknown) (no date) (unknown) (unknown) 12.2 g/dL (unkn own) (unknown) (no date) (unknown) (unknown) 19.4 % (unkn own) (unknown) (no date) (unknown) (unknown) 24.3 PG (unkn own) (unknown) (no date) (unknown) (unknown) 2500 /uL (unkn own) (unknown) (no date) (unknown) (unknown) 302 X10 3/uL (unkn own) (unknown) (no date) (unknown) (unknown) 32.2 % (unkn own) (unknown) (no date) (unknown) (unknown) 35.6 % (unkn own) (unknown) (no date) (unknown) (unknown) 3600 /uL (unkn own) (unknown) (no date) (unknown) (unknown) 38.0 % (unkn own) (unknown) (no date) (unknown) (unknown) 5.03 X10 6/uL (unkn own) (unknown) (no date) (unknown) (unknown) 51.0 % (unkn own) (unknown) (no date) (unknown) (unknown) 7.0 X10 3/uL (unkn own) (unknown) (no date) (unknown) (unknown) 700 /uL (unkn own) (unknown) (no date) (unknown) (unknown) 75.4 fL (unkn own) Result panel 8 (unknown) (no (unknown) (unknown) (no value) (units (unk nown) date) unknown) (unknown) (no (unknown) (unknown) Radiologist's (units ( unknown) date) Impression: unknown) (unknown) (no (unknown) (unknown) *Please continue (units (unknown) date) to take your unknown) regular medications as directed. (unknown) (no (unknown) (unknown) Date of Service: (units (unknown) date) 04/07/22 unknown) (unknown) (no (unknown) (unknown) (no value) (units (unk nown) date) unknown) (unknown) (no (unknown) (unknown) 04/07/22 16:48 (units (unknown) date) unknown) (unknown) (no (unknown) (unknown) 100 mg PO BID (units ( unknown) date) Qty: 20 0RF unknown) (unknown) (no (unknown) (unknown) 150 mg PO Q3D (units ( unknown) date) Qty: 2 2RF unknown) (unknown) (no (unknown) (unknown) Allergies (units (unkn own) date) unknown) (unknown) (no (unknown) (unknown) ED Orders (units (unkn own) date) unknown) (unknown) (no (unknown) (unknown) Emergency Report (units (unknown) date) unknown) (unknown) (no (unknown) (unknown) [facility] (units (unknown) date) [address] unknown) [place] [address] (unknown) (no (unknown) (unknown) Lab Results (units (un known) date) unknown) (unknown) (no (unknown) (unknown) Point of Care (units ( unknown) date) Testing unknown) (unknown) (no (unknown) (unknown) Previous Rx's (units ( unknown) date) unknown) (unknown) (no (unknown) (unknown) Rx Instructions: (units (unknown) date) unknown) (unknown) (no (unknown) (unknown) Urine Dip (units (unkn own) date) unknown) (unknown) (no (unknown) (unknown) Vital Signs - 8 (units (unknown) date) hr unknown) (unknown) (no (unknown) (unknown) [ ] New (units (unkno wn) date) medication unknown) prescriptions sent to your pharmacy: [ ] (unknown) (no (unknown) (unknown) [ ] New (units (unkno wn) date) medication written unknown) as a paper prescription (unknown) (no (unknown) (unknown) [ ] No new (units (unk nown) date) medications given unknown) (unknown) (no (unknown) (unknown) may repeat second (units (unknown) date) dose 72 hrs after unknown) first dose if symptoms persist (unknown) (no (unknown) (unknown) (no value) (units (unk nown) date) unknown) (unknown) (no (unknown) (unknown) 04/07/22 04/07/22 (units (unknown) date) 04/07/22 unknown) Range/Units (unknown) (no (unknown) (unknown) 13:00 15:24 16:48 (units (unknown) date) unknown) (unknown) (no (unknown) (unknown) doxycycline (units (un known) date) hyclate 100 mg unknown) tablet (unknown) (no (unknown) (unknown) fluconazole 150 (units (unknown) date) mg tablet unknown) (unknown) (no (unknown) (unknown) 04/07/22 (units (unkno wn) date) unknown) (unknown) (no (unknown) (unknown) Costochondritis, (units (unknown) date) acute, Muscle unknown) strain (unknown) (no (unknown) (unknown) Medication (units (unk nown) date) Instructions unknown) Recorded (unknown) (no (unknown) (unknown) is (units (unkno wn) date) unknown) (unknown) (no (unknown) (unknown) *If you do not (units (unknown) date) have a primary unknown) care provider please contact [phone] to (unknown) (no (unknown) (unknown) *Please follow up (units (unknown) date) with your primary unknown) care provider in 2-3 days, call for an (unknown) (no (unknown) (unknown) *Return to (units (unk nown) date) Emergency unknown) Department if you should have any new, worsening, or (unknown) (no (unknown) (unknown) *What to do: (units (u nknown) date) unknown) (unknown) (no (unknown) (unknown) *You have been (units (unknown) date) diagnosed with [ ] unknown) (unknown) (no (unknown) (unknown) [id number] (units (unkno wn) date) unknown) (unknown) (no (unknown) (unknown) 04/07/22 13:00 (units (unknown) date) unknown) (unknown) (no (unknown) (unknown) 04/07/22 15:24 (units (unknown) date) unknown) (unknown) (no (unknown) (unknown) 04/07/22 15:36 (units (unknown) date) unknown) (unknown) (no (unknown) (unknown) 04/07/22 15:50 (units (unknown) date) unknown) (unknown) (no (unknown) (unknown) 13:00 (units (unkno wn) date) unknown) (unknown) (no (unknown) (unknown) ? (units (unkno wn) date) unknown) (unknown) (no (unknown) (unknown) ABDOMEN: (units (unkno wn) date) unknown) (unknown) (no (unknown) (unknown) Abdominal Nodes:? (units (unknown) date) No retroperitoneal unknown) or mesenteric adenopathy by size criteria.? (unknown) (no (unknown) (unknown) Activity (units (unkno wn) date) Restrictions/Addit unknown) ional Instructions: (unknown) (no (unknown) (unknown) Adrenal Glands:? (units (unknown) date) Unremarkable.? ? unknown) (unknown) (no (unknown) (unknown) After the (units (unkn own) date) administration of unknown) intravenous contrast, axial sections acquired from (unknown) (no (unknown) (unknown) Age/Sex: 21 / F (units (unknown) date) unknown) (unknown) (no (unknown) (unknown) Allergy/AdvReac (units (unknown) date) Type Severity unknown) Reaction Status Date / Time (unknown) (no (unknown) (unknown) Approved by: (units (u nknown) date) David Townsend M.D. on unknown) 04/07/2022 at 16:51 ? (unknown) (no (unknown) (unknown) Baso # (Auto) 100 (units (unknown) date) (0-100) /uL unknown) (unknown) (no (unknown) (unknown) Baso % (Auto) 0.9 (units (unknown) date) (0-2) % unknown) (unknown) (no (unknown) (unknown) Bedside Urine (units ( unknown) date) Bilirubin - unknown) Negative (unknown) (no (unknown) (unknown) Bedside Urine (units ( unknown) date) Glucose Negative unknown) (unknown) (no (unknown) (unknown) Bedside Urine (units ( unknown) date) Ketone - Negative unknown) (unknown) (no (unknown) (unknown) Bedside Urine (units ( unknown) date) Leukocytes - unknown) Negative (unknown) (no (unknown) (unknown) Bedside Urine (units ( unknown) date) Nitrite - Negative unknown) (unknown) (no (unknown) (unknown) Bedside Urine (units ( unknown) date) Occult Blood - unknown) Negative (unknown) (no (unknown) (unknown) Bedside Urine (units ( unknown) date) Protein - Negative unknown) (unknown) (no (unknown) (unknown) Bedside Urine (units ( unknown) date) Urobilinogen - unknown) Negative (unknown) (no (unknown) (unknown) Bedside Urine pH (units (unknown) date) 6.0 unknown) (unknown) (no (unknown) (unknown) Biliary ducts:? (units (unknown) date) Unremarkable.? ? unknown) (unknown) (no (unknown) (unknown) Bladder:? Filled (units (unknown) date) with contrast unknown) (unknown) (no (unknown) (unknown) Blood Pressure (units (unknown) date) 114/74 04/07/22 unknown) 13:00 (unknown) (no (unknown) (unknown) Blood Pressure (units (unknown) date) unknown) (unknown) (no (unknown) (unknown) Bones:? No acute (units (unknown) date) or suspicious unknown) osseous abnormality. (unknown) (no (unknown) (unknown) CBC Auto Diff (units ( unknown) date) [Complete Blood unknown) Count AUTO DIFF] Stat (unknown) (no (unknown) (unknown) CMP (units (unkno wn) date) [Comprehensive unknown) Metabolic Panel] Stat (unknown) (no (unknown) (unknown) COMPARISON:? (units (u nknown) date) None. unknown) (unknown) (no (unknown) (unknown) COVID19 -Nasal (units (unknown) date) RAPID/Pre-Proc unknown) Stat (unknown) (no (unknown) (unknown) CT abdomen pelvis (units (unknown) date) w con Stat unknown) (unknown) (no (unknown) (unknown) CT scan - (units (unkn own) date) abdomen/pelvis: unknown) (unknown) (no (unknown) (unknown) Cardio: denies (units (unknown) date) chest pain, unknown) palpitations, edema (unknown) (no (unknown) (unknown) Cardiovascular: (units (unknown) date) regular rate and unknown) rhythm, no peripheral edema, warm extremities (unknown) (no (unknown) (unknown) Chief Complaint: (units (unknown) date) Abdominal Pain unknown) (unknown) (no (unknown) (unknown) Chlamydia (units (unkn own) date) Gonorrhea PCR unknown) -URINE Stat (unknown) (no (unknown) (unknown) Clinical (units (unkno wn) date) Impression: unknown) (unknown) (no (unknown) (unknown) Course (units (unkno wn) date) unknown) (unknown) (no (unknown) (unknown) : 2000 (units (unknown) date) Acct:[id number] unknown) (unknown) (no (unknown) (unknown) Departure (units (unkn own) date) unknown) (unknown) (no (unknown) (unknown) Dictated by: (units (u nknown) date) David Townsend M.D. on unknown) 04/07/2022 at 16:44 ? ? (unknown) (no (unknown) (unknown) Discharge Plan (units (unknown) date) unknown) (unknown) (no (unknown) (unknown) EKG-12 Lead Stat (units (unknown) date) unknown) (unknown) (no (unknown) (unknown) ER Physician: (units ( unknown) date) Lindsay Ruiz unknown) QI SPECIALIST (unknown) (no (unknown) (unknown) Eos # (Auto) 100 (units (unknown) date) (0-450) /uL unknown) (unknown) (no (unknown) (unknown) Eos % (Auto) 1.9 (units (unknown) date) L (2-4) % unknown) (unknown) (no (unknown) (unknown) Esterase (units (unkno wn) date) unknown) (unknown) (no (unknown) (unknown) Exam (units (unkno wn) date) unknown) (unknown) (no (unknown) (unknown) Exam Narrative: (units (unknown) date) unknown) (unknown) (no (unknown) (unknown) Eyes: denies (units (u nknown) date) visual changes, unknown) eye pain (unknown) (no (unknown) (unknown) Eyes: equal round (units (unknown) date) and reactive, unknown) EOMI, conjunctiva normal (unknown) (no (unknown) (unknown) FINDINGS:? (units (unk nown) date) unknown) (unknown) (no (unknown) (unknown) For (units (unkno wn) date) unknown) (unknown) (no (unknown) (unknown) GI: Endorses (units (u nknown) date) right upper unknown) quadrant abdominal pain, denies nausea, vomiting, (unknown) (no (unknown) (unknown) GI: abdomen soft, (units (unknown) date) nontender to unknown) palpation, nondistended, no masses, no exquisite (unknown) (no (unknown) (unknown) : denies (units (unk nown) date) dysuria, unknown) hematuria, urinary retention, frequency or incontinence, (unknown) (no (unknown) (unknown) Gallbladder:? (units ( unknown) date) Under distended unknown) (unknown) (no (unknown) (unknown) General (units (unkno wn) date) unknown) (unknown) (no (unknown) (unknown) General: (units (unkno wn) date) cooperative, unknown) comfortable, in no acute distress, well groomed (unknown) (no (unknown) (unknown) General: denies (units (unknown) date) fever, chills, unknown) malaise, sweats, fatigue (unknown) (no (unknown) (unknown) GenericComposite[ (units (unknown) date) Plt Count 302 unknown) (150-400) X10^3/uL ] (unknown) (no (unknown) (unknown) GenericComposite[ (units (unknown) date) RBC 5.03 (4.0-5.2) unknown) X10^6/uL ] (unknown) (no (unknown) (unknown) GenericComposite[ (units (unknown) date) WBC 7.0 (4.5-11.0) unknown) X10^3/uL ] (unknown) (no (unknown) (unknown) HPI - Abdominal (units (unknown) date) Pain unknown) (unknown) (no (unknown) (unknown) HPI narrative: (units (unknown) date) unknown) (unknown) (no (unknown) (unknown) Hct 38.0 (36-46) (units (unknown) date) % unknown) (unknown) (no (unknown) (unknown) Head/Neck: denies (units (unknown) date) headache, neck unknown) pain, dizziness (unknown) (no (unknown) (unknown) Head: atraumatic, (units (unknown) date) symmetrical facial unknown) expressions (unknown) (no (unknown) (unknown) Heart:? No (units (unk nown) date) significant unknown) findings. (unknown) (no (unknown) (unknown) Hgb 12.2 (units (unkno wn) date) (12.0-16.0) g/dL unknown) (unknown) (no (unknown) (unknown) History of (units (unk nown) date) Present Illness unknown) (unknown) (no (unknown) (unknown) IMPRESSION:? No (units (unknown) date) acute abdominal unknown) pelvic pathology.? Normal appendix.? Gallbladder (unknown) (no (unknown) (unknown) INDICATIONS:? ruq (units (unknown) date) pain which unknown) radiates to back, left pelvic pain? (unknown) (no (unknown) (unknown) Image quality:? (units (unknown) date) Excellent.? unknown) (unknown) (no (unknown) (unknown) Imaging Data (units (u nknown) date) unknown) (unknown) (no (unknown) (unknown) Independently (units ( unknown) date) reviewed vitals unknown) signs and nursing notes. (unknown) (no (unknown) (unknown) Initial Vital (units ( unknown) date) Signs unknown) (unknown) (no (unknown) (unknown) Initial Vital (units ( unknown) date) Signs: unknown) (unknown) (no (unknown) (unknown) Instructions: (units ( unknown) date) Muscle Strain, unknown) Costochondritis (unknown) (no (unknown) (unknown) Kidneys and (units (un known) date) Ureters:? unknown) Unremarkable.? ? (unknown) (no (unknown) (unknown) Lab Data (units (unkno wn) date) unknown) (unknown) (no (unknown) (unknown) Labs: (units (unkno wn) date) unknown) (unknown) (no (unknown) (unknown) Likely (units (unkno wn) date) physiologic unknown) appearance of the pelvic organs on CT.? If there is concern (unknown) (no (unknown) (unknown) Lipase Stat (units (un known) date) unknown) (unknown) (no (unknown) (unknown) Liver:? (units (unkno wn) date) Unremarkable.? ? unknown) (unknown) (no (unknown) (unknown) Lung bases:? (units (u nknown) date) Unremarkable. unknown) (unknown) (no (unknown) (unknown) Lymph # (Auto) (units (unknown) date) 2500 (2272-9525) unknown) /uL (unknown) (no (unknown) (unknown) Lymph % (Auto) (units (unknown) date) 35.6 (25-40) % unknown) (unknown) (no (unknown) (unknown) MCH 24.3 L (units (unk nown) date) (26-34) PG unknown) (unknown) (no (unknown) (unknown) MCHC 32.2 (30-36) (units (unknown) date) % unknown) (unknown) (no (unknown) (unknown) MCV 75.4 L (units (unk nown) date) (80-100) fL unknown) (unknown) (no (unknown) (unknown) MDM - Abdominal (units (unknown) date) Pain unknown) (unknown) (no (unknown) (unknown) MDM Narrative (units ( unknown) date) unknown) (unknown) (no (unknown) (unknown) MSK: denies joint (units (unknown) date) pain, muscle unknown) weakness (unknown) (no (unknown) (unknown) MSK: moves all (units (unknown) date) extremities, unknown) neurovascularly intact, no weakness, normal tone (unknown) (no (unknown) (unknown) Medical decision (units (unknown) date) making narrative: unknown) (unknown) (no (unknown) (unknown) Miscellaneous: No (units (unknown) date) hernias are seen. unknown) ? ? (unknown) (no (unknown) (unknown) Mode of arrival: (units (unknown) date) Ambulatory unknown) (unknown) (no (unknown) (unknown) [place] # (Auto) 700 (units (unknown) date) (0-900) /uL unknown) (unknown) (no (unknown) (unknown) [place] % (Auto) (units ( unknown) date) 10.6 (3-14) % unknown) (unknown) (no (unknown) (unknown) Mouth/Throat: (units ( unknown) date) moist mucus unknown) membranes (unknown) (no (unknown) (unknown) N gonorrhoeae DNA (units (unknown) date) (PCR) Not detected unknown) (unknown) (no (unknown) (unknown) Narrative (units (unkn own) date) unknown) (unknown) (no (unknown) (unknown) Narrative: (units (unk nown) date) unknown) (unknown) (no (unknown) (unknown) Neck: supple (units (u nknown) date) unknown) (unknown) (no (unknown) (unknown) Neuro: denies (units ( unknown) date) numbness, tingling unknown) (unknown) (no (unknown) (unknown) Neuro: normal (units ( unknown) date) speech and unknown) cognition, A+O x3 (unknown) (no (unknown) (unknown) Neut # (Auto) (units ( unknown) date) 3600 (1034-5952) unknown) /uL (unknown) (no (unknown) (unknown) Neut % (Auto) (units ( unknown) date) 51.0 (50-75) % unknown) (unknown) (no (unknown) (unknown) No Action (units (unkn own) date) unknown) (unknown) (no (unknown) (unknown) No Known Drug (units ( unknown) date) Allergies Allergy unknown) Verified 04/07/22 13:05 (unknown) (no (unknown) (unknown) Nose: nares (units (un known) date) patent, no unknown) rhinorrhea (unknown) (no (unknown) (unknown) Ordered: (units (unkno wn) date) unknown) (unknown) (no (unknown) (unknown) Orders (units (unkno wn) date) unknown) (unknown) (no (unknown) (unknown) Oxygen Delivery (units (unknown) date) Method 04/07/22 unknown) 13:00 (unknown) (no (unknown) (unknown) Oxygen Delivery (units (unknown) date) Method Room Air unknown) (unknown) (no (unknown) (unknown) PELVIS: (units (unkno wn) date) unknown) (unknown) (no (unknown) (unknown) PROCEDURE:? CT (units (unknown) date) ABDOMEN PELVIS W unknown) CON (unknown) (no (unknown) (unknown) Pancreas:? (units (unk nown) date) Unremarkable.? ? unknown) (unknown) (no (unknown) (unknown) Patient (units (unkno wn) date) Disposition: Home unknown) (unknown) (no (unknown) (unknown) Patient History (units (unknown) date) unknown) (unknown) (no (unknown) (unknown) Patient reports (units (unknown) date) that she is been unknown) doing warm compresses and this has been (unknown) (no (unknown) (unknown) Patient states (units (unknown) date) that she had a unknown) miscarriage a few months ago and has not had a (unknown) (no (unknown) (unknown) Patient: (units (unkno wn) date) Sites,[place] N unknown) MR#: [id number] (unknown) (no (unknown) (unknown) Pelvic Nodes: No (units (unknown) date) enlarged lymph unknown) nodes.? (unknown) (no (unknown) (unknown) Pelvic Organs:? (units (unknown) date) Likely physiologic unknown) appearance on CT (unknown) (no (unknown) (unknown) Peritoneum:? No (units (unknown) date) abnormal unknown) intraperitoneal fluid.? No free air.? (unknown) (no (unknown) (unknown) Point of care (units ( unknown) date) testing: unknown) (unknown) (no (unknown) (unknown) Test (units (unknown) date) Results Negative unknown) (unknown) (no (unknown) (unknown) Prescriptions: (units (unknown) date) unknown) (unknown) (no (unknown) (unknown) Psych: mental (units ( unknown) date) status is grossly unknown) normal, congruent mood, normal affect, pleasant (unknown) (no (unknown) (unknown) Pulse Oximetry 99 (units (unknown) date) 04/07/22 13:00 unknown) (unknown) (no (unknown) (unknown) Pulse Oximetry 99 (units (unknown) date) unknown) (unknown) (no (unknown) (unknown) Pulse Rate 86 (units ( unknown) date) 04/07/22 13:00 unknown) (unknown) (no (unknown) (unknown) Pulse Rate 86 (units ( unknown) date) unknown) (unknown) (no (unknown) (unknown) RDW 19.4 H (units (unk nown) date) (11.6-14.8) % unknown) (unknown) (no (unknown) (unknown) Related Data (units (u nknown) date) unknown) (unknown) (no (unknown) (unknown) Respiratory Rate (units (unknown) date) 14 04/07/22 13:00 unknown) (unknown) (no (unknown) (unknown) Respiratory Rate (units (unknown) date) 14 unknown) (unknown) (no (unknown) (unknown) Respiratory: (units (u nknown) date) denies dyspnea, unknown) cough, orthopnea (unknown) (no (unknown) (unknown) Respiratory: (units (u nknown) date) normal effort, unknown) able to speak in complete sentences, no audible (unknown) (no (unknown) (unknown) Result diagrams: (units (unknown) date) unknown) (unknown) (no (unknown) (unknown) Review of Systems (units (unknown) date) unknown) (unknown) (no (unknown) (unknown) SARS-CoV-2 (PCR) (units (unknown) date) Negative unknown) (Negative) (unknown) (no (unknown) (unknown) Signed By: (units (unk nown) date) unknown) (unknown) (no (unknown) (unknown) Skin: brisk (units (un known) date) capillary refill, unknown) no rash, no erythema (unknown) (no (unknown) (unknown) Skin: denies (units (u nknown) date) rash, itching, unknown) skin lesions or other (unknown) (no (unknown) (unknown) Smoking Status: (units (unknown) date) Unknown if ever unknown) smoked (unknown) (no (unknown) (unknown) Smoking Status: (units (unknown) date) Unknown if ever unknown) smoked (unknown) (no (unknown) (unknown) Social History (units (unknown) date) (Reviewed 04/07/22 unknown) @ 15:50 by Lindsay Ruiz [facility]) (unknown) (no (unknown) (unknown) Source: patient (units (unknown) date) unknown) (unknown) (no (unknown) (unknown) Spleen:? (units (unkno wn) date) Unremarkable.? ? unknown) (unknown) (no (unknown) (unknown) Stated Complaint: (units (unknown) date) Stomach pains, unknown) Feeling unwell (unknown) (no (unknown) (unknown) Stomach and (units (un known) date) Bowel:? Normal unknown) appendix.? No bowel obstruction. (unknown) (no (unknown) (unknown) Substance Use (units ( unknown) date) Type: does not use unknown) (unknown) (no (unknown) (unknown) TECHNIQUE:? (units (un known) date) unknown) (unknown) (no (unknown) (unknown) Temperature 97.9 (units (unknown) date) F 04/07/22 13:00 unknown) (unknown) (no (unknown) (unknown) Temperature 97.9 (units (unknown) date) F unknown) (unknown) (no (unknown) (unknown) This is a (units (unkn own) date) 21-year-old female unknown) who presents to the emergency department (unknown) (no (unknown) (unknown) Time Seen by (units (u nknown) date) Provider: 04/07/22 unknown) 12:48 (unknown) (no (unknown) (unknown) Troponin + CK (units ( unknown) date) Cardiac Panel Stat unknown) (unknown) (no (unknown) (unknown) Ur Chlamydia DNA (units (unknown) date) (PCR) Not detected unknown) (unknown) (no (unknown) (unknown) Urine Specific (units (unknown) date) [place] 1.010 unknown) (unknown) (no (unknown) (unknown) Ventral Wall:? (units (unknown) date) Small fat unknown) containing umbilical hernia. (unknown) (no (unknown) (unknown) Vessels:? Aorta (units (unknown) date) and inferior vena unknown) cava are normal in size.? (unknown) (no (unknown) (unknown) Vital Signs (units (un known) date) unknown) (unknown) (no (unknown) (unknown) Vital signs: (units (u nknown) date) unknown) (unknown) (no (unknown) (unknown) [Embedded Image (units (unknown) date) Not Available] unknown) (unknown) (no (unknown) (unknown) adjustment (units (unk nown) date) unknown) (unknown) (no (unknown) (unknown) alcohol intake (units (unknown) date) frequency: unknown) holidays/special occasions only (unknown) (no (unknown) (unknown) and cooperative (units (unknown) date) unknown) (unknown) (no (unknown) (unknown) appointment. Let (units (unknown) date) them know you were unknown) seen in the Emergency Department and that we (unknown) (no (unknown) (unknown) asked that you be (units (unknown) date) seen for unknown) follow-up. We will electronically transmit a record (unknown) (no (unknown) (unknown) bases to the (units (u nknown) date) pubic symphysis.? unknown) Coronal and sagittal reformats were performed.? (unknown) (no (unknown) (unknown) breath (units (unkno wn) date) unknown) (unknown) (no (unknown) (unknown) chest around her (units (unknown) date) mid axillary 4th unknown) and 5th rib space. She denies constipation, (unknown) (no (unknown) (unknown) collapsed. (units (unk nown) date) unknown) (unknown) (no (unknown) (unknown) come and go and do (units (unknown) date) not have any unknown) relation to food. Patient states that sometimes (unknown) (no (unknown) (unknown) complaining (units (un known) date) intermittent pain unknown) in her right upper chest, and in her pelvis which (unknown) (no (unknown) (unknown) complaining of (units (unknown) date) right-sided rib unknown) pain, pelvic pain, irregular periods since her (unknown) (no (unknown) (unknown) concerning (units (unk nown) date) symptoms, such as unknown) [fever greater than 101F, chills, worsening pain, (unknown) (no (unknown) (unknown) constipation or (units (unknown) date) diarrhea, denies unknown) flank pain (unknown) (no (unknown) (unknown) denies abnormal (units (unknown) date) vaginal discharge unknown) (unknown) (no (unknown) (unknown) denies fever, (units ( unknown) date) nausea vomiting, unknown) changes to her stool, shortness of breath, (unknown) (no (unknown) (unknown) discharge, denies (units (unknown) date) fever, denies unknown) chills, denies flank pain, denies weakness. (unknown) (no (unknown) (unknown) doxycycline (units (un known) date) hyclate 100 mg unknown) tablet 100 mg PO BID #20 tabs 12/29/21 (unknown) (no (unknown) (unknown) establish care (units (unknown) date) with one of the unknown) [facility] primary care providers. (unknown) (no (unknown) (unknown) fluconazole 150 (units (unknown) date) mg tablet 150 mg unknown) PO Q3D 2 doses #2 tabs 12/29/21 (unknown) (no (unknown) (unknown) for pelvic (units (unk nown) date) unknown) (unknown) (no (unknown) (unknown) helpful, she (units (u nknown) date) denies taking any unknown) medication prior to arrival, and states she does (unknown) (no (unknown) (unknown) history of an (units ( unknown) date) ovarian cyst, unknown) pelvic inflammatory disease on 12/28/2021 and was (unknown) (no (unknown) (unknown) improved without (units (unknown) date) complications. She unknown) denies any recent fever or other illness. (unknown) (no (unknown) (unknown) miscarriage a few (units (unknown) date) months ago and unknown) denies any systemic symptoms of illness. She (unknown) (no (unknown) (unknown) normal period (units ( unknown) date) since, her last unknown) menstrual cycle was March 19, 2022. Patient has a (unknown) (no (unknown) (unknown) not like to take (units (unknown) date) medications. She unknown) states it is worse when she takes a deep (unknown) (no (unknown) (unknown) of mA and/or kV (units (unknown) date) according to unknown) patient size.? (unknown) (no (unknown) (unknown) of today's note (units (unknown) date) if your PCP is in unknown) our system (unknown) (no (unknown) (unknown) pathology, (units (unk nown) date) consider unknown) ultrasound.? (unknown) (no (unknown) (unknown) persistent (units (unk nown) date) vomiting or other unknown) bothersome symptoms]. (unknown) (no (unknown) (unknown) radiation dose (units (unknown) date) reduction, the unknown) following was used:? automated exposure control, (unknown) (no (unknown) (unknown) she does not have (units (unknown) date) any nausea, unknown) changes to her stool, she denies abnormal vaginal (unknown) (no (unknown) (unknown) she is starving (units (unknown) date) and other times unknown) she is having sharp pain in the right upper (unknown) (no (unknown) (unknown) tenderness with (units (unknown) date) exam, without unknown) guarding or rebound. (unknown) (no (unknown) (unknown) the lung (units (unkno wn) date) unknown) (unknown) (no (unknown) (unknown) treated with (units (un known) date) doxycycline, unknown) fluconazole for Miriam vaginitis and reports that she (unknown) (no (unknown) (unknown) wheezing, (units (unkn own) date) imbalance, unknown) dizziness, or any other symptom. (unknown) (no (unknown) (unknown) wheezing, (units (unkn own) date) stridor, or rales. unknown) No retractions or tachypnea. Result panel 9 (unknown) (no date) (unknown) (unknown) 56 U/L (unkn own) (unknown) (no date) (unknown) (unknown) Test not % (unkn own) performed (unknown) (no date) (unknown) (unknown) Test not ng/mL (unkn own) performed Result panel 10 (unknown) (no date) (unknown) (unknown) < 0.012 ng/mL (unkn own) (unknown) (no date) (unknown) (unknown) 56 U/L (unkn own) (unknown) (no date) (unknown) (unknown) Test not % (unkn own) performed (unknown) (no date) (unknown) (unknown) Test not ng/mL (unkn own) performed Result panel 11 (unknown) (no date) (unknown) (unknown) > 60 mL/min (unkn own) (unknown) (no date) (unknown) (unknown) 0.2 mg/dL (unkn own) (unknown) (no date) (unknown) (unknown) 0.67 mg/dL (unkn own) (unknown) (no date) (unknown) (unknown) 1.5 (units unknown) (unknown) (unknown) (no date) (unknown) (unknown) 106 mmol/L (unkn own) (unknown) (no date) (unknown) (unknown) 11.9 (units unknown) (unknown) (unknown) (no date) (unknown) (unknown) 13 IU/L (unkn own) (unknown) (no date) (unknown) (unknown) 136 mmol/L (unkn own) (unknown) (no date) (unknown) (unknown) 24 mmol/L (unkn own) (unknown) (no date) (unknown) (unknown) 3.0 g/dL (unkn own) (unknown) (no date) (unknown) (unknown) 33 IU/L (unkn own) (unknown) (no date) (unknown) (unknown) 4.2 mmol/L (unkn own) (unknown) (no date) (unknown) (unknown) 4.4 g/dL (unkn own) (unknown) (no date) (unknown) (unknown) 66 U/L (unkn own) (unknown) (no date) (unknown) (unknown) 7.4 g/dL (unkn own) (unknown) (no date) (unknown) (unknown) 8 mg/dL (unkn own) (unknown) (no date) (unknown) (unknown) 80 U/L (unkn own) (unknown) (no date) (unknown) (unknown) 9.1 mg/dL (unkn own) (unknown) (no date) (unknown) (unknown) 91 mg/dL (unkn own) Result panel 12 (unknown) (no (unknown) (unknown) (no value) (units (unk nown) date) unknown) (unknown) (no (unknown) (unknown) Radiologist's (units ( unknown) date) Impression: unknown) (unknown) (no (unknown) (unknown) *Please continue (units (unknown) date) to take your unknown) regular medications as directed. (unknown) (no (unknown) (unknown) Date of Service: (units (unknown) date) 04/07/22 unknown) (unknown) (no (unknown) (unknown) (no value) (units (unk nown) date) unknown) (unknown) (no (unknown) (unknown) <Electronically (units (unknown) date) signed by Lindsay horton) [facility]> (unknown) (no (unknown) (unknown) 04/07/22 16:48 (units (unknown) date) unknown) (unknown) (no (unknown) (unknown) 04/07/22 1833 (units ( unknown) date) unknown) (unknown) (no (unknown) (unknown) 100 mg PO BID (units ( unknown) date) Qty: 20 0RF unknown) (unknown) (no (unknown) (unknown) 150 mg PO Q3D (units ( unknown) date) Qty: 2 2RF unknown) (unknown) (no (unknown) (unknown) Allergies (units (unkn own) date) unknown) (unknown) (no (unknown) (unknown) ED Orders (units (unkn own) date) unknown) (unknown) (no (unknown) (unknown) Emergency Report (units (unknown) date) unknown) (unknown) (no (unknown) (unknown) [facility] (units (unknown) date) [address] unknown) [place] [address] (unknown) (no (unknown) (unknown) Lab Results (units (un known) date) unknown) (unknown) (no (unknown) (unknown) Point of Care (units ( unknown) date) Testing unknown) (unknown) (no (unknown) (unknown) Previous Rx's (units ( unknown) date) unknown) (unknown) (no (unknown) (unknown) Rx Instructions: (units (unknown) date) unknown) (unknown) (no (unknown) (unknown) Urine Dip (units (unkn own) date) unknown) (unknown) (no (unknown) (unknown) Vital Signs - 8 (units (unknown) date) hr unknown) (unknown) (no (unknown) (unknown) [ ] New (units (unkno wn) date) medication unknown) prescriptions sent to your pharmacy: [ ] (unknown) (no (unknown) (unknown) [ ] New (units (unkno wn) date) medication written unknown) as a paper prescription (unknown) (no (unknown) (unknown) [x ] No new (units (un known) date) medications given unknown) (unknown) (no (unknown) (unknown) may repeat second (units (unknown) date) dose 72 hrs after unknown) first dose if symptoms persist (unknown) (no (unknown) (unknown) (no value) (units (unk nown) date) unknown) (unknown) (no (unknown) (unknown) 04/07/22 04/07/22 (units (unknown) date) 04/07/22 unknown) Range/Units (unknown) (no (unknown) (unknown) 04/07/22 04/07/22 (units (unknown) date) Range/Units unknown) (unknown) (no (unknown) (unknown) 13:00 15:24 16:48 (units (unknown) date) unknown) (unknown) (no (unknown) (unknown) 16:48 16:48 (units (un known) date) unknown) (unknown) (no (unknown) (unknown) doxycycline (units (un known) date) hyclate 100 mg unknown) tablet (unknown) (no (unknown) (unknown) fluconazole 150 (units (unknown) date) mg tablet unknown) (unknown) (no (unknown) (unknown) 04/07/22 (units (unkno wn) date) unknown) (unknown) (no (unknown) (unknown) Costochondritis, (units (unknown) date) acute, Muscle unknown) strain (unknown) (no (unknown) (unknown) Medication (units (unk nown) date) Instructions unknown) Recorded (unknown) (no (unknown) (unknown) Try not to lay (units (unknown) date) down and be stiff, unknown) take deep breath cough and clear your lungs (unknown) (no (unknown) (unknown) abdomen pelvis (units (unknown) date) was obtained for unknown) pain symptom which patient reports as moving (unknown) (no (unknown) (unknown) appear normal, (units (unknown) date) there are no unknown) ovarian cysts or other abdominal findings that are (unknown) (no (unknown) (unknown) but could be (units (u nknown) date) related to small unknown) ovarian cyst which did not show up on imaging. (unknown) (no (unknown) (unknown) closely with (units (u nknown) date) outpatient unknown) providers as instructed. Patient understands plan and (unknown) (no (unknown) (unknown) develop a fever, (units (unknown) date) please test unknown) yourself for COVID and stay hydrated, treat (unknown) (no (unknown) (unknown) if this does not (units (unknown) date) improve. Patient unknown) is appropriate and amenable to discharge (unknown) (no (unknown) (unknown) is (units (unkno wn) date) unknown) (unknown) (no (unknown) (unknown) muscular strain, (units (unknown) date) pelvic pain unknown) unrelated to infection, or other non emergent (unknown) (no (unknown) (unknown) no mesenteric (units ( unknown) date) adenopathy or unknown) retroperitoneal adenopathy. On exam, patient has (unknown) (no (unknown) (unknown) not to have any (units (unknown) date) significant unknown) exertional activity until it starts to get better. (unknown) (no (unknown) (unknown) *If you do not (units (unknown) date) have a primary unknown) care provider please contact [phone] to (unknown) (no (unknown) (unknown) *Please follow up (units (unknown) date) with your primary unknown) care provider in 2-3 days, call for an (unknown) (no (unknown) (unknown) *Return to (units (unk nown) date) Emergency unknown) Department if you should have any new, worsening, or (unknown) (no (unknown) (unknown) *What to do: (units (u nknown) date) unknown) (unknown) (no (unknown) (unknown) *You have been (units (unknown) date) diagnosed with unknown) abdominal pain without known cause, your CT (unknown) (no (unknown) (unknown) [id number] (units (unkno wn) date) unknown) (unknown) (no (unknown) (unknown) 04/07/22 13:00 (units (unknown) date) unknown) (unknown) (no (unknown) (unknown) 04/07/22 15:24 (units (unknown) date) unknown) (unknown) (no (unknown) (unknown) 04/07/22 15:36 (units (unknown) date) unknown) (unknown) (no (unknown) (unknown) 04/07/22 15:50 (units (unknown) date) unknown) (unknown) (no (unknown) (unknown) 04/07/22 16:48 (units (unknown) date) unknown) (unknown) (no (unknown) (unknown) 13:00 04/07/22 (units (unknown) date) unknown) (unknown) (no (unknown) (unknown) 17:36 (units (unkno wn) date) unknown) (unknown) (no (unknown) (unknown) ? (units (unkno wn) date) unknown) (unknown) (no (unknown) (unknown) ABDOMEN: (units (unkno wn) date) unknown) (unknown) (no (unknown) (unknown) ALT (<35) IU/L (units (unknown) date) unknown) (unknown) (no (unknown) (unknown) ALT 13 (<35) IU/L (units (unknown) date) unknown) (unknown) (no (unknown) (unknown) AST (14-36) IU/L (units (unknown) date) unknown) (unknown) (no (unknown) (unknown) AST 33 (14-36) (units (unknown) date) IU/L unknown) (unknown) (no (unknown) (unknown) Abdominal Nodes:? (units (unknown) date) No retroperitoneal unknown) or mesenteric adenopathy by size criteria.? (unknown) (no (unknown) (unknown) Activity (units (unkno wn) date) Restrictions/Addit unknown) ional Instructions: (unknown) (no (unknown) (unknown) Adrenal Glands:? (units (unknown) date) Unremarkable.? ? unknown) (unknown) (no (unknown) (unknown) After the (units (unkn own) date) administration of unknown) intravenous contrast, axial sections acquired from (unknown) (no (unknown) (unknown) Age/Sex: 21 / F (units (unknown) date) unknown) (unknown) (no (unknown) (unknown) Albumin (3.5-5.0) (units (unknown) date) g/dL unknown) (unknown) (no (unknown) (unknown) Albumin 4.4 (units (un known) date) (3.5-5.0) g/dL unknown) (unknown) (no (unknown) (unknown) Albumin/Globulin (units (unknown) date) Ratio (1.0-2.8) unknown) (unknown) (no (unknown) (unknown) Albumin/Globulin (units (unknown) date) Ratio 1.5 unknown) (1.0-2.8) (unknown) (no (unknown) (unknown) Alkaline (units (unkno wn) date) Phosphatase unknown) (38-126) U/L (unknown) (no (unknown) (unknown) Alkaline (units (unkno wn) date) Phosphatase 66 unknown) (38-126) U/L (unknown) (no (unknown) (unknown) Allergy/AdvReac (units (unknown) date) Type Severity unknown) Reaction Status Date / Time (unknown) (no (unknown) (unknown) Approved by: (units (u nknown) date) David Townsend M.D. on unknown) 04/07/2022 at 16:51 ? (unknown) (no (unknown) (unknown) BUN (7-17) mg/dL (units (unknown) date) unknown) (unknown) (no (unknown) (unknown) BUN 8 (7-17) (units (u nknown) date) mg/dL unknown) (unknown) (no (unknown) (unknown) BUN/Creatinine (units (unknown) date) Ratio (6-22) unknown) (unknown) (no (unknown) (unknown) BUN/Creatinine (units (unknown) date) Ratio 11.9 (6-22) unknown) (unknown) (no (unknown) (unknown) Baso # (Auto) (units ( unknown) date) (0-100) /uL unknown) (unknown) (no (unknown) (unknown) Baso # (Auto) 100 (units (unknown) date) (0-100) /uL unknown) (unknown) (no (unknown) (unknown) Baso % (Auto) (units ( unknown) date) (0-2) % unknown) (unknown) (no (unknown) (unknown) Baso % (Auto) 0.9 (units (unknown) date) (0-2) % unknown) (unknown) (no (unknown) (unknown) Bedside Urine (units ( unknown) date) Bilirubin - unknown) Negative (unknown) (no (unknown) (unknown) Bedside Urine (units ( unknown) date) Glucose Negative unknown) (unknown) (no (unknown) (unknown) Bedside Urine (units ( unknown) date) Ketone - Negative unknown) (unknown) (no (unknown) (unknown) Bedside Urine (units ( unknown) date) Leukocytes - unknown) Negative (unknown) (no (unknown) (unknown) Bedside Urine (units ( unknown) date) Nitrite - Negative unknown) (unknown) (no (unknown) (unknown) Bedside Urine (units ( unknown) date) Occult Blood - unknown) Negative (unknown) (no (unknown) (unknown) Bedside Urine (units ( unknown) date) Protein - Negative unknown) (unknown) (no (unknown) (unknown) Bedside Urine (units ( unknown) date) Urobilinogen - unknown) Negative (unknown) (no (unknown) (unknown) Bedside Urine pH (units (unknown) date) 6.0 unknown) (unknown) (no (unknown) (unknown) Biliary ducts:? (units (unknown) date) Unremarkable.? ? unknown) (unknown) (no (unknown) (unknown) Bladder:? Filled (units (unknown) date) with contrast unknown) (unknown) (no (unknown) (unknown) Blood Pressure (units (unknown) date) 114/74 04/07/22 unknown) 13:00 (unknown) (no (unknown) (unknown) Blood Pressure (units (unknown) date) 100/65 unknown) (unknown) (no (unknown) (unknown) Bones:? No acute (units (unknown) date) or suspicious unknown) osseous abnormality. (unknown) (no (unknown) (unknown) CBC Auto Diff (units ( unknown) date) [Complete Blood unknown) Count AUTO DIFF] Stat (unknown) (no (unknown) (unknown) CK-MB (CK-2) (units (u nknown) date) unknown) (unknown) (no (unknown) (unknown) CK-MB (CK-2) TNP (units (unknown) date) unknown) (unknown) (no (unknown) (unknown) CK-MB (CK-2) Rel (units (unknown) date) Index unknown) (unknown) (no (unknown) (unknown) CK-MB (CK-2) Rel (units (unknown) date) Index TNP unknown) (unknown) (no (unknown) (unknown) CMP (units (unkno wn) date) [Comprehensive unknown) Metabolic Panel] Stat (unknown) (no (unknown) (unknown) COMPARISON:? (units (u nknown) date) None. unknown) (unknown) (no (unknown) (unknown) COVID19 -Nasal (units (unknown) date) RAPID/Pre-Proc unknown) Stat (unknown) (no (unknown) (unknown) CT abdomen pelvis (units (unknown) date) w con Stat unknown) (unknown) (no (unknown) (unknown) CT scan - (units (unkn own) date) abdomen/pelvis: unknown) (unknown) (no (unknown) (unknown) Calcium (units (unkno wn) date) (8.4-10.2) mg/dL unknown) (unknown) (no (unknown) (unknown) Calcium 9.1 (units (un known) date) (8.4-10.2) mg/dL unknown) (unknown) (no (unknown) (unknown) Carbon Dioxide (units (unknown) date) (22-32) mmol/L unknown) (unknown) (no (unknown) (unknown) Carbon Dioxide 24 (units (unknown) date) (22-32) mmol/L unknown) (unknown) (no (unknown) (unknown) Cardio: denies (units (unknown) date) chest pain, unknown) palpitations, edema (unknown) (no (unknown) (unknown) Cardiovascular: (units (unknown) date) regular rate and unknown) rhythm, no peripheral edema, warm extremities (unknown) (no (unknown) (unknown) Chief Complaint: (units (unknown) date) Abdominal Pain unknown) (unknown) (no (unknown) (unknown) Chlamydia (units (unkn own) date) Gonorrhea PCR unknown) -URINE Stat (unknown) (no (unknown) (unknown) Chloride (98-107) (units (unknown) date) mmol/L unknown) (unknown) (no (unknown) (unknown) Chloride 106 (units (u nknown) date) (98-107) mmol/L unknown) (unknown) (no (unknown) (unknown) Clinical (units (unkno wn) date) Impression: unknown) (unknown) (no (unknown) (unknown) Course (units (unkno wn) date) unknown) (unknown) (no (unknown) (unknown) Creatinine (units (unk nown) date) (0.52-1.04) mg/dL unknown) (unknown) (no (unknown) (unknown) Creatinine 0.67 (units (unknown) date) (0.52-1.04) mg/dL unknown) (unknown) (no (unknown) (unknown) : 2000 (units (unknown) date) Acct:[id number] unknown) (unknown) (no (unknown) (unknown) Departure (units (unkn own) date) unknown) (unknown) (no (unknown) (unknown) Dictated by: (units (u nknown) date) David Townsend M.D. on unknown) 04/07/2022 at 16:44 ? ? (unknown) (no (unknown) (unknown) Discharge Plan (units (unknown) date) unknown) (unknown) (no (unknown) (unknown) EKG-12 Lead Stat (units (unknown) date) unknown) (unknown) (no (unknown) (unknown) ER Physician: (units ( unknown) date) Lindsay Ruiz unknown) QI SPECIALIST (unknown) (no (unknown) (unknown) Eos # (Auto) (units (u nknown) date) (0-450) /uL unknown) (unknown) (no (unknown) (unknown) Eos # (Auto) 100 (units (unknown) date) (0-450) /uL unknown) (unknown) (no (unknown) (unknown) Eos % (Auto) (units (u nknown) date) (2-4) % unknown) (unknown) (no (unknown) (unknown) Eos % (Auto) 1.9 (units (unknown) date) L (2-4) % unknown) (unknown) (no (unknown) (unknown) Esterase (units (unkno wn) date) unknown) (unknown) (no (unknown) (unknown) Estimated GFR (units ( unknown) date) (>60) mL/min unknown) (unknown) (no (unknown) (unknown) Estimated GFR > (units (unknown) date) 60 (>60) mL/min unknown) (unknown) (no (unknown) (unknown) Exam (units (unkno wn) date) unknown) (unknown) (no (unknown) (unknown) Exam Narrative: (units (unknown) date) unknown) (unknown) (no (unknown) (unknown) Eyes: denies (units (u nknown) date) visual changes, unknown) eye pain (unknown) (no (unknown) (unknown) Eyes: equal round (units (unknown) date) and reactive, unknown) EOMI, conjunctiva normal (unknown) (no (unknown) (unknown) FINDINGS:? (units (unk nown) date) unknown) (unknown) (no (unknown) (unknown) For (units (unkno wn) date) unknown) (unknown) (no (unknown) (unknown) GI: Endorses (units (u nknown) date) right upper unknown) quadrant abdominal pain, denies nausea, vomiting, (unknown) (no (unknown) (unknown) GI: abdomen soft, (units (unknown) date) nontender to unknown) palpation, nondistended, no masses, no exquisite (unknown) (no (unknown) (unknown) : denies (units (unk nown) date) dysuria, unknown) hematuria, urinary retention, frequency or incontinence, (unknown) (no (unknown) (unknown) Gallbladder:? (units ( unknown) date) Under distended unknown) (unknown) (no (unknown) (unknown) General (units (unkno wn) date) unknown) (unknown) (no (unknown) (unknown) General: (units (unkno wn) date) cooperative, unknown) comfortable, in no acute distress, well groomed (unknown) (no (unknown) (unknown) General: denies (units (unknown) date) fever, chills, unknown) malaise, sweats, fatigue (unknown) (no (unknown) (unknown) GenericComposite[ (units (unknown) date) Plt Count unknown) (150-400) X10^3/uL ] (unknown) (no (unknown) (unknown) GenericComposite[ (units (unknown) date) Plt Count 302 unknown) (150-400) X10^3/uL ] (unknown) (no (unknown) (unknown) GenericComposite[ (units (unknown) date) RBC (4.0-5.2) unknown) X10^6/uL ] (unknown) (no (unknown) (unknown) GenericComposite[ (units (unknown) date) RBC 5.03 (4.0-5.2) unknown) X10^6/uL ] (unknown) (no (unknown) (unknown) GenericComposite[ (units (unknown) date) WBC (4.5-11.0) unknown) X10^3/uL ] (unknown) (no (unknown) (unknown) GenericComposite[ (units (unknown) date) WBC 7.0 (4.5-11.0) unknown) X10^3/uL ] (unknown) (no (unknown) (unknown) Globulin (units (unkno wn) date) (1.7-4.1) g/dL unknown) (unknown) (no (unknown) (unknown) Globulin 3.0 (units (u nknown) date) (1.7-4.1) g/dL unknown) (unknown) (no (unknown) (unknown) Glucose (70-100) (units (unknown) date) mg/dL unknown) (unknown) (no (unknown) (unknown) Glucose 91 (units (unk nown) date) (70-100) mg/dL unknown) (unknown) (no (unknown) (unknown) HPI - Abdominal (units (unknown) date) Pain unknown) (unknown) (no (unknown) (unknown) HPI narrative: (units (unknown) date) unknown) (unknown) (no (unknown) (unknown) Hct (36-46) % (units ( unknown) date) unknown) (unknown) (no (unknown) (unknown) Hct 38.0 (36-46) (units (unknown) date) % unknown) (unknown) (no (unknown) (unknown) Head/Neck: denies (units (unknown) date) headache, neck unknown) pain, dizziness (unknown) (no (unknown) (unknown) Head: atraumatic, (units (unknown) date) symmetrical facial unknown) expressions (unknown) (no (unknown) (unknown) Heart:? No (units (unk nown) date) significant unknown) findings. (unknown) (no (unknown) (unknown) Hgb (12.0-16.0) (units (unknown) date) g/dL unknown) (unknown) (no (unknown) (unknown) Hgb 12.2 (units (unkno wn) date) (12.0-16.0) g/dL unknown) (unknown) (no (unknown) (unknown) History of (units (unk nown) date) Present Illness unknown) (unknown) (no (unknown) (unknown) IMPRESSION:? No (units (unknown) date) acute abdominal unknown) pelvic pathology.? Normal appendix.? Gallbladder (unknown) (no (unknown) (unknown) INDICATIONS:? ruq (units (unknown) date) pain which unknown) radiates to back, left pelvic pain? (unknown) (no (unknown) (unknown) Image quality:? (units (unknown) date) Excellent.? unknown) (unknown) (no (unknown) (unknown) Imaging Data (units (u nknown) date) unknown) (unknown) (no (unknown) (unknown) Independently (units ( unknown) date) reviewed vitals unknown) signs and nursing notes. (unknown) (no (unknown) (unknown) Initial Vital (units ( unknown) date) Signs unknown) (unknown) (no (unknown) (unknown) Initial Vital (units ( unknown) date) Signs: unknown) (unknown) (no (unknown) (unknown) Instructions: (units ( unknown) date) Muscle Strain, unknown) Costochondritis (unknown) (no (unknown) (unknown) Kidneys and (units (un known) date) Ureters:? unknown) Unremarkable.? ? (unknown) (no (unknown) (unknown) Lab Data (units (unkno wn) date) unknown) (unknown) (no (unknown) (unknown) Labs: (units (unkno wn) date) unknown) (unknown) (no (unknown) (unknown) Likely (units (unkno wn) date) physiologic unknown) appearance of the pelvic organs on CT.? If there is concern (unknown) (no (unknown) (unknown) Lipase (23-300) (units (unknown) date) U/L unknown) (unknown) (no (unknown) (unknown) Lipase 80 (units (unkn own) date) (23-300) U/L unknown) (unknown) (no (unknown) (unknown) Lipase Stat (units (un known) date) unknown) (unknown) (no (unknown) (unknown) Liver:? (units (unkno wn) date) Unremarkable.? ? unknown) (unknown) (no (unknown) (unknown) Lung bases:? (units (u nknown) date) Unremarkable. unknown) (unknown) (no (unknown) (unknown) Lymph # (Auto) (units (unknown) date) (9378-5364) /uL unknown) (unknown) (no (unknown) (unknown) Lymph # (Auto) (units (unknown) date) 2500 (8536-0442) unknown) /uL (unknown) (no (unknown) (unknown) Lymph % (Auto) (units (unknown) date) (25-40) % unknown) (unknown) (no (unknown) (unknown) Lymph % (Auto) (units (unknown) date) 35.6 (25-40) % unknown) (unknown) (no (unknown) (unknown) MCH (26-34) PG (units (unknown) date) unknown) (unknown) (no (unknown) (unknown) MCH 24.3 L (units (unk nown) date) (26-34) PG unknown) (unknown) (no (unknown) (unknown) MCHC (30-36) % (units (unknown) date) unknown) (unknown) (no (unknown) (unknown) MCHC 32.2 (30-36) (units (unknown) date) % unknown) (unknown) (no (unknown) (unknown) MCV (80-100) fL (units (unknown) date) unknown) (unknown) (no (unknown) (unknown) MCV 75.4 L (units (unk nown) date) (80-100) fL unknown) (unknown) (no (unknown) (unknown) MDM - Abdominal (units (unknown) date) Pain unknown) (unknown) (no (unknown) (unknown) MDM Narrative (units ( unknown) date) unknown) (unknown) (no (unknown) (unknown) MSK: denies joint (units (unknown) date) pain, muscle unknown) weakness (unknown) (no (unknown) (unknown) MSK: moves all (units (unknown) date) extremities, unknown) neurovascularly intact, no weakness, normal tone (unknown) (no (unknown) (unknown) Medical decision (units (unknown) date) making narrative: unknown) (unknown) (no (unknown) (unknown) Miscellaneous: No (units (unknown) date) hernias are seen. unknown) ? ? (unknown) (no (unknown) (unknown) Mode of arrival: (units (unknown) date) Ambulatory unknown) (unknown) (no (unknown) (unknown) [place] # (Auto) (units ( unknown) date) (0-900) /uL unknown) (unknown) (no (unknown) (unknown) [place] # (Auto) 700 (units (unknown) date) (0-900) /uL unknown) (unknown) (no (unknown) (unknown) [place] % (Auto) (units ( unknown) date) (3-14) % unknown) (unknown) (no (unknown) (unknown) [place] % (Auto) (units ( unknown) date) 10.6 (3-14) % unknown) (unknown) (no (unknown) (unknown) Mouth/Throat: (units ( unknown) date) moist mucus unknown) membranes (unknown) (no (unknown) (unknown) N gonorrhoeae DNA (units (unknown) date) (PCR) unknown) (unknown) (no (unknown) (unknown) N gonorrhoeae DNA (units (unknown) date) (PCR) Not detected unknown) (unknown) (no (unknown) (unknown) Narrative (units (unkn own) date) unknown) (unknown) (no (unknown) (unknown) Narrative: (units (unk nown) date) unknown) (unknown) (no (unknown) (unknown) Neck: supple (units (u nknown) date) unknown) (unknown) (no (unknown) (unknown) Neuro: denies (units ( unknown) date) numbness, tingling unknown) (unknown) (no (unknown) (unknown) Neuro: normal (units ( unknown) date) speech and unknown) cognition, A+O x3 (unknown) (no (unknown) (unknown) Neut # (Auto) (units ( unknown) date) (2567-7325) /uL unknown) (unknown) (no (unknown) (unknown) Neut # (Auto) (units ( unknown) date) 3600 (0654-3845) unknown) /uL (unknown) (no (unknown) (unknown) Neut % (Auto) (units ( unknown) date) (50-75) % unknown) (unknown) (no (unknown) (unknown) Neut % (Auto) (units ( unknown) date) 51.0 (50-75) % unknown) (unknown) (no (unknown) (unknown) No Action (units (unkn own) date) unknown) (unknown) (no (unknown) (unknown) No Known Drug (units ( unknown) date) Allergies Allergy unknown) Verified 04/07/22 13:05 (unknown) (no (unknown) (unknown) Nose: nares (units (un known) date) patent, no unknown) rhinorrhea (unknown) (no (unknown) (unknown) Ordered: (units (unkno wn) date) unknown) (unknown) (no (unknown) (unknown) Orders (units (unkno wn) date) unknown) (unknown) (no (unknown) (unknown) Oxygen Delivery (units (unknown) date) Method 04/07/22 unknown) 13:00 (unknown) (no (unknown) (unknown) Oxygen Delivery (units (unknown) date) Method Room Air unknown) Room Air (unknown) (no (unknown) (unknown) PELVIS: (units (unkno wn) date) unknown) (unknown) (no (unknown) (unknown) PROCEDURE:? CT (units (unknown) date) ABDOMEN PELVIS W unknown) CON (unknown) (no (unknown) (unknown) Pancreas:? (units (unk nown) date) Unremarkable.? ? unknown) (unknown) (no (unknown) (unknown) Patient (units (unkno wn) date) Disposition: Home unknown) (unknown) (no (unknown) (unknown) Patient History (units (unknown) date) unknown) (unknown) (no (unknown) (unknown) Patient reports (units (unknown) date) that she is been unknown) doing warm compresses and this has been (unknown) (no (unknown) (unknown) Patient states (units (unknown) date) that she had a unknown) miscarriage a few months ago and has not had a (unknown) (no (unknown) (unknown) Patient's urine (units (unknown) date) was unknown) negative, this could be gas pain, costochondritis, (unknown) (no (unknown) (unknown) Patient: (units (unkno wn) date) Sites,[place] N unknown) MR#: [id number] (unknown) (no (unknown) (unknown) Pelvic Nodes: No (units (unknown) date) enlarged lymph unknown) nodes.? (unknown) (no (unknown) (unknown) Pelvic Organs:? (units (unknown) date) Likely physiologic unknown) appearance on CT (unknown) (no (unknown) (unknown) Peritoneum:? No (units (unknown) date) abnormal unknown) intraperitoneal fluid.? No free air.? (unknown) (no (unknown) (unknown) Point of care (units ( unknown) date) testing: unknown) (unknown) (no (unknown) (unknown) Potassium (units (unkn own) date) (3.4-5.1) mmol/L unknown) (unknown) (no (unknown) (unknown) Potassium 4.2 (units ( unknown) date) (3.4-5.1) mmol/L unknown) (unknown) (no (unknown) (unknown) Test (units (unknown) date) Results Negative unknown) (unknown) (no (unknown) (unknown) Prescriptions: (units (unknown) date) unknown) (unknown) (no (unknown) (unknown) Psych: mental (units ( unknown) date) status is grossly unknown) normal, congruent mood, normal affect, pleasant (unknown) (no (unknown) (unknown) Pulse Oximetry 99 (units (unknown) date) 04/07/22 13:00 unknown) (unknown) (no (unknown) (unknown) Pulse Oximetry 99 (units (unknown) date) 100 unknown) (unknown) (no (unknown) (unknown) Pulse Rate 86 (units ( unknown) date) 04/07/22 13:00 unknown) (unknown) (no (unknown) (unknown) Pulse Rate 86 74 (units (unknown) date) unknown) (unknown) (no (unknown) (unknown) RDW (11.6-14.8) % (units (unknown) date) unknown) (unknown) (no (unknown) (unknown) RDW 19.4 H (units (unk nown) date) (11.6-14.8) % unknown) (unknown) (no (unknown) (unknown) Related Data (units (u nknown) date) unknown) (unknown) (no (unknown) (unknown) Respiratory Rate (units (unknown) date) 14 04/07/22 13:00 unknown) (unknown) (no (unknown) (unknown) Respiratory Rate (units (unknown) date) 14 unknown) (unknown) (no (unknown) (unknown) Respiratory: (units (u nknown) date) denies dyspnea, unknown) cough, orthopnea (unknown) (no (unknown) (unknown) Respiratory: (units (u nknown) date) normal effort, unknown) able to speak in complete sentences, no audible (unknown) (no (unknown) (unknown) Result diagrams: (units (unknown) date) unknown) (unknown) (no (unknown) (unknown) Review of Systems (units (unknown) date) unknown) (unknown) (no (unknown) (unknown) SARS-CoV-2 (PCR) (units (unknown) date) (Negative) unknown) (unknown) (no (unknown) (unknown) SARS-CoV-2 (PCR) (units (unknown) date) Negative unknown) (Negative) (unknown) (no (unknown) (unknown) Signed By: (units (unk nown) date) unknown) (unknown) (no (unknown) (unknown) Skin: brisk (units (un known) date) capillary refill, unknown) no rash, no erythema (unknown) (no (unknown) (unknown) Skin: denies (units (u nknown) date) rash, itching, unknown) skin lesions or other (unknown) (no (unknown) (unknown) Smoking Status: (units (unknown) date) Unknown if ever unknown) smoked (unknown) (no (unknown) (unknown) Smoking Status: (units (unknown) date) Unknown if ever unknown) smoked (unknown) (no (unknown) (unknown) Social History (units (unknown) date) (Reviewed 04/07/22 unknown) @ 15:50 by Lindsay Ruiz [facility]) (unknown) (no (unknown) (unknown) Sodium (137-145) (units (unknown) date) mmol/L unknown) (unknown) (no (unknown) (unknown) Sodium 136 L (units (u nknown) date) (137-145) mmol/L unknown) (unknown) (no (unknown) (unknown) Source: patient (units (unknown) date) unknown) (unknown) (no (unknown) (unknown) Spleen:? (units (unkno wn) date) Unremarkable.? ? unknown) (unknown) (no (unknown) (unknown) Stated Complaint: (units (unknown) date) Stomach pains, unknown) Feeling unwell (unknown) (no (unknown) (unknown) Stomach and (units (un known) date) Bowel:? Normal unknown) appendix.? No bowel obstruction. (unknown) (no (unknown) (unknown) Substance Use (units ( unknown) date) Type: does not use unknown) (unknown) (no (unknown) (unknown) TECHNIQUE:? (units (un known) date) unknown) (unknown) (no (unknown) (unknown) Temperature 97.9 (units (unknown) date) F 04/07/22 13:00 unknown) (unknown) (no (unknown) (unknown) Temperature 97.9 (units (unknown) date) F unknown) (unknown) (no (unknown) (unknown) This is a (units (unkn own) date) 21-year-old female unknown) who presents to the emergency department (unknown) (no (unknown) (unknown) Time Seen by (units (u nknown) date) Provider: 04/07/22 unknown) 12:48 (unknown) (no (unknown) (unknown) Total Bilirubin (units (unknown) date) (0.2-1.3) mg/dL unknown) (unknown) (no (unknown) (unknown) Total Bilirubin (units (unknown) date) 0.2 (0.2-1.3) unknown) mg/dL (unknown) (no (unknown) (unknown) Total Creatine (units (unknown) date) Kinase (30-135) unknown) U/L (unknown) (no (unknown) (unknown) Total Creatine (units (unknown) date) Kinase 56 (30-135) unknown) U/L (unknown) (no (unknown) (unknown) Total Protein (units ( unknown) date) (6.3-8.2) g/dL unknown) (unknown) (no (unknown) (unknown) Total Protein 7.4 (units (unknown) date) (6.3-8.2) g/dL unknown) (unknown) (no (unknown) (unknown) Troponin + CK (units ( unknown) date) Cardiac Panel Stat unknown) (unknown) (no (unknown) (unknown) Troponin I (units (unk nown) date) (0.01-0.034) ng/mL unknown) (unknown) (no (unknown) (unknown) Troponin I < (units (u nknown) date) 0.012 (0.01-0.034) unknown) ng/mL (unknown) (no (unknown) (unknown) Ur Chlamydia DNA (units (unknown) date) (PCR) unknown) (unknown) (no (unknown) (unknown) Ur Chlamydia DNA (units (unknown) date) (PCR) Not detected unknown) (unknown) (no (unknown) (unknown) Urine Specific (units (unknown) date) [place] 1.010 unknown) (unknown) (no (unknown) (unknown) Ventral Wall:? (units (unknown) date) Small fat unknown) containing umbilical hernia. (unknown) (no (unknown) (unknown) Vessels:? Aorta (units (unknown) date) and inferior vena unknown) cava are normal in size.? (unknown) (no (unknown) (unknown) Visit Report (units (u nknown) date) Forms: Patient unknown) Portal/API (unknown) (no (unknown) (unknown) Vital Signs (units (un known) date) unknown) (unknown) (no (unknown) (unknown) Vital signs: (units (u nknown) date) unknown) (unknown) (no (unknown) (unknown) [Embedded Image (units (unknown) date) Not Available] unknown) (unknown) (no (unknown) (unknown) abdomen did not (units (unknown) date) show any abnormal unknown) pelvic findings, your appendix and gallbladder (unknown) (no (unknown) (unknown) abnormal findings (units (unknown) date) on physical exam. unknown) She is encouraged to follow-up with her PCP (unknown) (no (unknown) (unknown) abnormal. Your (units (unknown) date) was unknown) negative, your COVID was negative, your blood (unknown) (no (unknown) (unknown) adjustment (units (unk nown) date) unknown) (unknown) (no (unknown) (unknown) agrees to (units (unkn own) date) discharge home. unknown) All questions and concerns answered at this time. (unknown) (no (unknown) (unknown) alcohol intake (units (unknown) date) frequency: unknown) holidays/special occasions only (unknown) (no (unknown) (unknown) all over her (units (u nknown) date) abdomen, without unknown) prior history of abdominal surgery. CT abdomen (unknown) (no (unknown) (unknown) and cooperative (units (unknown) date) unknown) (unknown) (no (unknown) (unknown) and pelvis was (units (unknown) date) obtained and was unknown) negative for acute abdominopelvic pathology, (unknown) (no (unknown) (unknown) and see if this (units (unknown) date) helps, have light unknown) activity and practice taking deep breaths, try (unknown) (no (unknown) (unknown) appointment. Let (units (unknown) date) them know you were unknown) seen in the Emergency Department and that we (unknown) (no (unknown) (unknown) asked that you be (units (unknown) date) seen for unknown) follow-up. We will electronically transmit a record (unknown) (no (unknown) (unknown) bases to the (units (u nknown) date) pubic symphysis.? unknown) Coronal and sagittal reformats were performed.? (unknown) (no (unknown) (unknown) breath (units (unkno wn) date) unknown) (unknown) (no (unknown) (unknown) chest around her (units (unknown) date) mid axillary 4th unknown) and 5th rib space. She denies constipation, (unknown) (no (unknown) (unknown) collapsed. (units (unk nown) date) unknown) (unknown) (no (unknown) (unknown) come and go and do (units (unknown) date) not have any unknown) relation to food. Patient states that sometimes (unknown) (no (unknown) (unknown) complaining (units (un known) date) intermittent pain unknown) in her right upper chest, and in her pelvis which (unknown) (no (unknown) (unknown) complaining of (units (unknown) date) right-sided rib unknown) pain, pelvic pain, irregular periods since her (unknown) (no (unknown) (unknown) compresses or (units ( unknown) date) heat pads to help unknown) treat this pain, take ibuprofen every 6 hours (unknown) (no (unknown) (unknown) concerning (units (unk nown) date) symptoms, such as unknown) [fever greater than 101F, chills, worsening pain, (unknown) (no (unknown) (unknown) constipation or (units (unknown) date) diarrhea, denies unknown) flank pain (unknown) (no (unknown) (unknown) costochondritis (units (unknown) date) from your ribs. unknown) Please stay hydrated, you can try warm (unknown) (no (unknown) (unknown) counts are (units (unk nown) date) normal, your EKG unknown) does not show any abnormal cardiac findings. Your (unknown) (no (unknown) (unknown) denies abnormal (units (unknown) date) vaginal discharge unknown) (unknown) (no (unknown) (unknown) denies fever, (units ( unknown) date) nausea vomiting, unknown) changes to her stool, shortness of breath, (unknown) (no (unknown) (unknown) department. She (units (unknown) date) is nontoxic unknown) appearing without any abnormal vital signs or (unknown) (no (unknown) (unknown) discharge, denies (units (unknown) date) fever, denies unknown) chills, denies flank pain, denies weakness. (unknown) (no (unknown) (unknown) doxycycline (units (un known) date) hyclate 100 mg unknown) tablet 100 mg PO BID #20 tabs 12/29/21 (unknown) (no (unknown) (unknown) establish care (units (unknown) date) with one of the unknown) [facility] primary care providers. (unknown) (no (unknown) (unknown) fluconazole 150 (units (unknown) date) mg tablet 150 mg unknown) PO Q3D 2 doses #2 tabs 12/29/21 (unknown) (no (unknown) (unknown) for any new or (units ( unknown) date) worsening unknown) symptoms. It could be a viral illness starting, if you (unknown) (no (unknown) (unknown) for pelvic (units (unk nown) date) unknown) (unknown) (no (unknown) (unknown) frequently, this (units (unknown) date) does not appear to unknown) be anything dangerous. Please follow-up (unknown) (no (unknown) (unknown) has been informed (units (unknown) date) of results. unknown) Patient has been given strict return to ER (unknown) (no (unknown) (unknown) helpful, she (units (u nknown) date) denies taking any unknown) medication prior to arrival, and states she does (unknown) (no (unknown) (unknown) history of an (units ( unknown) date) ovarian cyst, unknown) pelvic inflammatory disease on 12/28/2021 and was (unknown) (no (unknown) (unknown) home. Vital signs (units (unknown) date) are stable on unknown) repeat examination is unremarkable. Patient (unknown) (no (unknown) (unknown) if you have (units (un known) date) symptoms that you unknown) can not treat at home. (unknown) (no (unknown) (unknown) improved without (units (unknown) date) complications. She unknown) denies any recent fever or other illness. (unknown) (no (unknown) (unknown) liver enzymes, (units (unknown) date) cardiac workup is unknown) all negative, UA is negative for abnormality, (unknown) (no (unknown) (unknown) miscarriage a few (units (unknown) date) months ago and unknown) denies any systemic symptoms of illness. She (unknown) (no (unknown) (unknown) normal appendix, (units (unknown) date) gallbladder is unknown) collapsed, no intra-abdominal free fluid or air, (unknown) (no (unknown) (unknown) normal period (units ( unknown) date) since, her last unknown) menstrual cycle was March 19, 2022. Patient has a (unknown) (no (unknown) (unknown) not like to take (units (unknown) date) medications. She unknown) states it is worse when she takes a deep (unknown) (no (unknown) (unknown) not require any (units (unknown) date) pain medication or unknown) nausea medication while in the emergency (unknown) (no (unknown) (unknown) of mA and/or kV (units (unknown) date) according to unknown) patient size.? (unknown) (no (unknown) (unknown) of today's note (units (unknown) date) if your PCP is in unknown) our system (unknown) (no (unknown) (unknown) pathology, (units (unk nown) date) consider unknown) ultrasound.? (unknown) (no (unknown) (unknown) persistent (units (unk nown) date) vomiting or other unknown) bothersome symptoms]. (unknown) (no (unknown) (unknown) precautions for (units (unknown) date) any new or unknown) worsening symptoms. Patient understands to follow up (unknown) (no (unknown) (unknown) problem. Patient (units (unknown) date) reports feeling unknown) well and is able to discharge home, she did (unknown) (no (unknown) (unknown) radiation dose (units (unknown) date) reduction, the unknown) following was used:? automated exposure control, (unknown) (no (unknown) (unknown) reproducible right (units (unknown) date) sided rib pain, no unknown) explanation for her left-sided pelvic pain (unknown) (no (unknown) (unknown) she does not have (units (unknown) date) any nausea, unknown) changes to her stool, she denies abnormal vaginal (unknown) (no (unknown) (unknown) she is starving (units (unknown) date) and other times unknown) she is having sharp pain in the right upper (unknown) (no (unknown) (unknown) tenderness with (units (unknown) date) exam, without unknown) guarding or rebound. (unknown) (no (unknown) (unknown) the lung (units (unkno wn) date) unknown) (unknown) (no (unknown) (unknown) treated with (units (un known) date) doxycycline, unknown) fluconazole for Miriam vaginitis and reports that she (unknown) (no (unknown) (unknown) unremarkable (units (u nknown) date) without unknown) leukocytosis or electrolyte abnormality, no elevation in (unknown) (no (unknown) (unknown) urine chlamydia (units (unknown) date) and gonorrhea PCRs unknown) are also negative, COVID PCR is negative. CT (unknown) (no (unknown) (unknown) urine does not (units (unknown) date) show any unknown) infection. This is most likely a muscle strain or (unknown) (no (unknown) (unknown) weeks. I hope you (units (unknown) date) feel better soon, unknown) please return to the emergency department (unknown) (no (unknown) (unknown) wheezing, (units (unkn own) date) imbalance, unknown) dizziness, or any other symptom. Her lab work is grossly (unknown) (no (unknown) (unknown) wheezing, (units (unkn own) date) stridor, or rales. unknown) No retractions or tachypnea. (unknown) (no (unknown) (unknown) with your regular (units (unknown) date) doctor as needed unknown) if you do not get better within the next 2 (unknown) (no (unknown) (unknown) yourself with (units ( unknown) date) medications unknown) [id number] and come to the emergency department Result panel 13 (unknown) (no (unknown) (unknown) (no value) (units (unk nown) date) unknown) (unknown) (no (unknown) (unknown) Radiologist's (units ( unknown) date) Impression: unknown) (unknown) (no (unknown) (unknown) *Please continue (units (unknown) date) to take your unknown) regular medications as directed. (unknown) (no (unknown) (unknown) Date of Service: (units (unknown) date) 04/07/22 unknown) (unknown) (no (unknown) (unknown) (no value) (units (unk nown) date) unknown) (unknown) (no (unknown) (unknown) <Electronically (units (unknown) date) signed by Lindsay horton) [employer]> (unknown) (no (unknown) (unknown) <Electronically (units (unknown) date) signed by Anila Lo unknown) Zoë Dangelo> (unknown) (no (unknown) (unknown) 04/07/22 16:48 (units (unknown) date) unknown) (unknown) (no (unknown) (unknown) 04/07/22 1833 (units ( unknown) date) unknown) (unknown) (no (unknown) (unknown) 04/12/22 0352 (units ( unknown) date) unknown) (unknown) (no (unknown) (unknown) 100 mg PO BID (units ( unknown) date) Qty: 20 0RF unknown) (unknown) (no (unknown) (unknown) 150 mg PO Q3D (units ( unknown) date) Qty: 2 2RF unknown) (unknown) (no (unknown) (unknown) Allergies (units (unkn own) date) unknown) (unknown) (no (unknown) (unknown) ED Orders (units (unkn own) date) unknown) (unknown) (no (unknown) (unknown) Emergency Report (units (unknown) date) unknown) (unknown) (no (unknown) (unknown) [facility] (units (unknown) date) [address] unknown) [place] [address] (unknown) (no (unknown) (unknown) Lab Results (units (un known) date) unknown) (unknown) (no (unknown) (unknown) Point of Care (units ( unknown) date) Testing unknown) (unknown) (no (unknown) (unknown) Previous Rx's (units ( unknown) date) unknown) (unknown) (no (unknown) (unknown) Rx Instructions: (units (unknown) date) unknown) (unknown) (no (unknown) (unknown) Urine Dip (units (unkn own) date) unknown) (unknown) (no (unknown) (unknown) Vital Signs - 8 (units (unknown) date) hr unknown) (unknown) (no (unknown) (unknown) [ ] New (units (unkno wn) date) medication unknown) prescriptions sent to your pharmacy: [ ] (unknown) (no (unknown) (unknown) [ ] New (units (unkno wn) date) medication written unknown) as a paper prescription (unknown) (no (unknown) (unknown) [x ] No new (units (un known) date) medications given unknown) (unknown) (no (unknown) (unknown) may repeat second (units (unknown) date) dose 72 hrs after unknown) first dose if symptoms persist (unknown) (no (unknown) (unknown) (no value) (units (unk nown) date) unknown) (unknown) (no (unknown) (unknown) 04/07/22 04/07/22 (units (unknown) date) 04/07/22 unknown) Range/Units (unknown) (no (unknown) (unknown) 04/07/22 04/07/22 (units (unknown) date) Range/Units unknown) (unknown) (no (unknown) (unknown) 13:00 15:24 16:48 (units (unknown) date) unknown) (unknown) (no (unknown) (unknown) 16:48 16:48 (units (un known) date) unknown) (unknown) (no (unknown) (unknown) doxycycline (units (un known) date) hyclate 100 mg unknown) tablet (unknown) (no (unknown) (unknown) fluconazole 150 (units (unknown) date) mg tablet unknown) (unknown) (no (unknown) (unknown) 04/07/22 (units (unkno wn) date) unknown) (unknown) (no (unknown) (unknown) Costochondritis, (units (unknown) date) acute, Muscle unknown) strain (unknown) (no (unknown) (unknown) Medication (units (unk nown) date) Instructions unknown) Recorded (unknown) (no (unknown) (unknown) Try not to lay (units (unknown) date) down and be stiff, unknown) take deep breath cough and clear your lungs (unknown) (no (unknown) (unknown) abdomen pelvis (units (unknown) date) was obtained for unknown) pain symptom which patient reports as moving (unknown) (no (unknown) (unknown) appear normal, (units (unknown) date) there are no unknown) ovarian cysts or other abdominal findings that are (unknown) (no (unknown) (unknown) but could be (units (u nknown) date) related to small unknown) ovarian cyst which did not show up on imaging. (unknown) (no (unknown) (unknown) closely with (units (u nknown) date) outpatient unknown) providers as instructed. Patient understands plan and (unknown) (no (unknown) (unknown) develop a fever, (units (unknown) date) please test unknown) yourself for COVID and stay hydrated, treat (unknown) (no (unknown) (unknown) if this does not (units (unknown) date) improve. Patient unknown) is appropriate and amenable to discharge (unknown) (no (unknown) (unknown) is (units (unkno wn) date) unknown) (unknown) (no (unknown) (unknown) muscular strain, (units (unknown) date) pelvic pain unknown) unrelated to infection, or other non emergent (unknown) (no (unknown) (unknown) no mesenteric (units ( unknown) date) adenopathy or unknown) retroperitoneal adenopathy. On exam, patient has (unknown) (no (unknown) (unknown) not to have any (units (unknown) date) significant unknown) exertional activity until it starts to get better. (unknown) (no (unknown) (unknown) <Lindsay Ruiz, (units (unknown) date) QI SPECIALIST - Last Filed: unknown) 04/07/22 18:33> (unknown) (no (unknown) (unknown) <Anila Dangelo, (units (unknown) date) DO - Last Filed: unknown) 04/12/22 03:52> (unknown) (no (unknown) (unknown) *If you do not (units (unknown) date) have a primary unknown) care provider please contact [phone] to (unknown) (no (unknown) (unknown) *Please follow up (units (unknown) date) with your primary unknown) care provider in 2-3 days, call for an (unknown) (no (unknown) (unknown) *Return to (units (unk nown) date) Emergency unknown) Department if you should have any new, worsening, or (unknown) (no (unknown) (unknown) *What to do: (units (u nknown) date) unknown) (unknown) (no (unknown) (unknown) *You have been (units (unknown) date) diagnosed with unknown) abdominal pain without known cause, your CT (unknown) (no (unknown) (unknown) [id number] (units (unkno wn) date) unknown) (unknown) (no (unknown) (unknown) 04/07/22 13:00 (units (unknown) date) unknown) (unknown) (no (unknown) (unknown) 04/07/22 15:24 (units (unknown) date) unknown) (unknown) (no (unknown) (unknown) 04/07/22 15:36 (units (unknown) date) unknown) (unknown) (no (unknown) (unknown) 04/07/22 15:50 (units (unknown) date) unknown) (unknown) (no (unknown) (unknown) 04/07/22 16:48 (units (unknown) date) unknown) (unknown) (no (unknown) (unknown) 13:00 04/07/22 (units (unknown) date) unknown) (unknown) (no (unknown) (unknown) 17:36 (units (unkno wn) date) unknown) (unknown) (no (unknown) (unknown) ? (units (unkno wn) date) unknown) (unknown) (no (unknown) (unknown) ABDOMEN: (units (unkno wn) date) unknown) (unknown) (no (unknown) (unknown) ALT (<35) IU/L (units (unknown) date) unknown) (unknown) (no (unknown) (unknown) ALT 13 (<35) IU/L (units (unknown) date) unknown) (unknown) (no (unknown) (unknown) AST (14-36) IU/L (units (unknown) date) unknown) (unknown) (no (unknown) (unknown) AST 33 (14-36) (units (unknown) date) IU/L unknown) (unknown) (no (unknown) (unknown) Abdominal Nodes:? (units (unknown) date) No retroperitoneal unknown) or mesenteric adenopathy by size criteria.? (unknown) (no (unknown) (unknown) Activity (units (unkno wn) date) Restrictions/Addit unknown) ional Instructions: (unknown) (no (unknown) (unknown) Adrenal Glands:? (units (unknown) date) Unremarkable.? ? unknown) (unknown) (no (unknown) (unknown) After the (units (unkn own) date) administration of unknown) intravenous contrast, axial sections acquired from (unknown) (no (unknown) (unknown) Age/Sex: 21 / F (units (unknown) date) unknown) (unknown) (no (unknown) (unknown) Albumin (3.5-5.0) (units (unknown) date) g/dL unknown) (unknown) (no (unknown) (unknown) Albumin 4.4 (units (un known) date) (3.5-5.0) g/dL unknown) (unknown) (no (unknown) (unknown) Albumin/Globulin (units (unknown) date) Ratio (1.0-2.8) unknown) (unknown) (no (unknown) (unknown) Albumin/Globulin (units (unknown) date) Ratio 1.5 unknown) (1.0-2.8) (unknown) (no (unknown) (unknown) Alkaline (units (unkno wn) date) Phosphatase unknown) (38-126) U/L (unknown) (no (unknown) (unknown) Alkaline (units (unkno wn) date) Phosphatase 66 unknown) (38-126) U/L (unknown) (no (unknown) (unknown) Allergy/AdvReac (units (unknown) date) Type Severity unknown) Reaction Status Date / Time (unknown) (no (unknown) (unknown) Approved by: (units (u nknown) date) David Townsend M.D. on unknown) 04/07/2022 at 16:51 ? (unknown) (no (unknown) (unknown) BUN (7-17) mg/dL (units (unknown) date) unknown) (unknown) (no (unknown) (unknown) BUN 8 (7-17) (units (u nknown) date) mg/dL unknown) (unknown) (no (unknown) (unknown) BUN/Creatinine (units (unknown) date) Ratio (6-22) unknown) (unknown) (no (unknown) (unknown) BUN/Creatinine (units (unknown) date) Ratio 11.9 (6-22) unknown) (unknown) (no (unknown) (unknown) Baso # (Auto) (units ( unknown) date) (0-100) /uL unknown) (unknown) (no (unknown) (unknown) Baso # (Auto) 100 (units (unknown) date) (0-100) /uL unknown) (unknown) (no (unknown) (unknown) Baso % (Auto) (units ( unknown) date) (0-2) % unknown) (unknown) (no (unknown) (unknown) Baso % (Auto) 0.9 (units (unknown) date) (0-2) % unknown) (unknown) (no (unknown) (unknown) Bedside Urine (units ( unknown) date) Bilirubin - unknown) Negative (unknown) (no (unknown) (unknown) Bedside Urine (units ( unknown) date) Glucose Negative unknown) (unknown) (no (unknown) (unknown) Bedside Urine (units ( unknown) date) Ketone - Negative unknown) (unknown) (no (unknown) (unknown) Bedside Urine (units ( unknown) date) Leukocytes - unknown) Negative (unknown) (no (unknown) (unknown) Bedside Urine (units ( unknown) date) Nitrite - Negative unknown) (unknown) (no (unknown) (unknown) Bedside Urine (units ( unknown) date) Occult Blood - unknown) Negative (unknown) (no (unknown) (unknown) Bedside Urine (units ( unknown) date) Protein - Negative unknown) (unknown) (no (unknown) (unknown) Bedside Urine (units ( unknown) date) Urobilinogen - unknown) Negative (unknown) (no (unknown) (unknown) Bedside Urine pH (units (unknown) date) 6.0 unknown) (unknown) (no (unknown) (unknown) Biliary ducts:? (units (unknown) date) Unremarkable.? ? unknown) (unknown) (no (unknown) (unknown) Bladder:? Filled (units (unknown) date) with contrast unknown) (unknown) (no (unknown) (unknown) Blood Pressure (units (unknown) date) 114/74 04/07/22 unknown) 13:00 (unknown) (no (unknown) (unknown) Blood Pressure (units (unknown) date) 114 100/65 unknown) (unknown) (no (unknown) (unknown) Bones:? No acute (units (unknown) date) or suspicious unknown) osseous abnormality. (unknown) (no (unknown) (unknown) CBC Auto Diff (units ( unknown) date) [Complete Blood unknown) Count AUTO DIFF] Stat (unknown) (no (unknown) (unknown) CK-MB (CK-2) (units (u nknown) date) unknown) (unknown) (no (unknown) (unknown) CK-MB (CK-2) TNP (units (unknown) date) unknown) (unknown) (no (unknown) (unknown) CK-MB (CK-2) Rel (units (unknown) date) Index unknown) (unknown) (no (unknown) (unknown) CK-MB (CK-2) Rel (units (unknown) date) Index TNP unknown) (unknown) (no (unknown) (unknown) CMP (units (unkno wn) date) [Comprehensive unknown) Metabolic Panel] Stat (unknown) (no (unknown) (unknown) COMPARISON:? (units (u nknown) date) None. unknown) (unknown) (no (unknown) (unknown) COVID19 -Nasal (units (unknown) date) RAPID/Pre-Proc unknown) Stat (unknown) (no (unknown) (unknown) CT abdomen pelvis (units (unknown) date) w con Stat unknown) (unknown) (no (unknown) (unknown) CT scan - (units (unkn own) date) abdomen/pelvis: unknown) (unknown) (no (unknown) (unknown) Calcium (units (unkno wn) date) (8.4-10.2) mg/dL unknown) (unknown) (no (unknown) (unknown) Calcium 9.1 (units (un known) date) (8.4-10.2) mg/dL unknown) (unknown) (no (unknown) (unknown) Carbon Dioxide (units (unknown) date) (22-32) mmol/L unknown) (unknown) (no (unknown) (unknown) Carbon Dioxide 24 (units (unknown) date) (22-32) mmol/L unknown) (unknown) (no (unknown) (unknown) Cardio: denies (units (unknown) date) chest pain, unknown) palpitations, edema (unknown) (no (unknown) (unknown) Cardiovascular: (units (unknown) date) regular rate and unknown) rhythm, no peripheral edema, warm extremities (unknown) (no (unknown) (unknown) Chief Complaint: (units (unknown) date) Abdominal Pain unknown) (unknown) (no (unknown) (unknown) Chlamydia (units (unkn own) date) Gonorrhea PCR unknown) -URINE Stat (unknown) (no (unknown) (unknown) Chloride (98-107) (units (unknown) date) mmol/L unknown) (unknown) (no (unknown) (unknown) Chloride 106 (units (u nknown) date) (98-107) mmol/L unknown) (unknown) (no (unknown) (unknown) Clinical (units (unkno wn) date) Impression: unknown) (unknown) (no (unknown) (unknown) Cosign (units (unkno wn) date) unknown) (unknown) (no (unknown) (unknown) Course (units (unkno wn) date) unknown) (unknown) (no (unknown) (unknown) Creatinine (units (unk nown) date) (0.52-1.04) mg/dL unknown) (unknown) (no (unknown) (unknown) Creatinine 0.67 (units (unknown) date) (0.52-1.04) mg/dL unknown) (unknown) (no (unknown) (unknown) : 2000 (units (unknown) date) Acct:[id number] unknown) (unknown) (no (unknown) (unknown) Departure (units (unkn own) date) unknown) (unknown) (no (unknown) (unknown) Dictated by: (units (u nknown) date) David Townsend M.D. on unknown) 04/07/2022 at 16:44 ? ? (unknown) (no (unknown) (unknown) Discharge Plan (units (unknown) date) unknown) (unknown) (no (unknown) (unknown) ED Attending (units (u nknown) date) Cosignature unknown) Attestation: (unknown) (no (unknown) (unknown) EKG-12 Lead Stat (units (unknown) date) unknown) (unknown) (no (unknown) (unknown) ER Physician: (units ( unknown) date) Lindsay Ruiz unknown) QI SPECIALIST (unknown) (no (unknown) (unknown) Eos # (Auto) (units (u nknown) date) (0-450) /uL unknown) (unknown) (no (unknown) (unknown) Eos # (Auto) 100 (units (unknown) date) (0-450) /uL unknown) (unknown) (no (unknown) (unknown) Eos % (Auto) (units (u nknown) date) (2-4) % unknown) (unknown) (no (unknown) (unknown) Eos % (Auto) 1.9 (units (unknown) date) L (2-4) % unknown) (unknown) (no (unknown) (unknown) Esterase (units (unkno wn) date) unknown) (unknown) (no (unknown) (unknown) Estimated GFR (units ( unknown) date) (>60) mL/min unknown) (unknown) (no (unknown) (unknown) Estimated GFR > (units (unknown) date) 60 (>60) mL/min unknown) (unknown) (no (unknown) (unknown) Exam (units (unkno wn) date) unknown) (unknown) (no (unknown) (unknown) Exam Narrative: (units (unknown) date) unknown) (unknown) (no (unknown) (unknown) Eyes: denies (units (u nknown) date) visual changes, unknown) eye pain (unknown) (no (unknown) (unknown) Eyes: equal round (units (unknown) date) and reactive, unknown) EOMI, conjunctiva normal (unknown) (no (unknown) (unknown) FINDINGS:? (units (unk nown) date) unknown) (unknown) (no (unknown) (unknown) For (units (unkno wn) date) unknown) (unknown) (no (unknown) (unknown) GI: Endorses (units (u nknown) date) right upper unknown) quadrant abdominal pain, denies nausea, vomiting, (unknown) (no (unknown) (unknown) GI: abdomen soft, (units (unknown) date) nontender to unknown) palpation, nondistended, no masses, no exquisite (unknown) (no (unknown) (unknown) : denies (units (unk nown) date) dysuria, unknown) hematuria, urinary retention, frequency or incontinence, (unknown) (no (unknown) (unknown) Gallbladder:? (units ( unknown) date) Under distended unknown) (unknown) (no (unknown) (unknown) General (units (unkno wn) date) unknown) (unknown) (no (unknown) (unknown) General: (units (unkno wn) date) cooperative, unknown) comfortable, in no acute distress, well groomed (unknown) (no (unknown) (unknown) General: denies (units (unknown) date) fever, chills, unknown) malaise, sweats, fatigue (unknown) (no (unknown) (unknown) GenericComposite[ (units (unknown) date) Plt Count unknown) (150-400) X10^3/uL ] (unknown) (no (unknown) (unknown) GenericComposite[ (units (unknown) date) Plt Count 302 unknown) (150-400) X10^3/uL ] (unknown) (no (unknown) (unknown) GenericComposite[ (units (unknown) date) RBC (4.0-5.2) unknown) X10^6/uL ] (unknown) (no (unknown) (unknown) GenericComposite[ (units (unknown) date) RBC 5.03 (4.0-5.2) unknown) X10^6/uL ] (unknown) (no (unknown) (unknown) GenericComposite[ (units (unknown) date) WBC (4.5-11.0) unknown) X10^3/uL ] (unknown) (no (unknown) (unknown) GenericComposite[ (units (unknown) date) WBC 7.0 (4.5-11.0) unknown) X10^3/uL ] (unknown) (no (unknown) (unknown) Globulin (units (unkno wn) date) (1.7-4.1) g/dL unknown) (unknown) (no (unknown) (unknown) Globulin 3.0 (units (u nknown) date) (1.7-4.1) g/dL unknown) (unknown) (no (unknown) (unknown) Glucose (70-100) (units (unknown) date) mg/dL unknown) (unknown) (no (unknown) (unknown) Glucose 91 (units (unk nown) date) (70-100) mg/dL unknown) (unknown) (no (unknown) (unknown) HPI - Abdominal (units (unknown) date) Pain unknown) (unknown) (no (unknown) (unknown) HPI narrative: (units (unknown) date) unknown) (unknown) (no (unknown) (unknown) Hct (36-46) % (units ( unknown) date) unknown) (unknown) (no (unknown) (unknown) Hct 38.0 (36-46) (units (unknown) date) % unknown) (unknown) (no (unknown) (unknown) Head/Neck: denies (units (unknown) date) headache, neck unknown) pain, dizziness (unknown) (no (unknown) (unknown) Head: atraumatic, (units (unknown) date) symmetrical facial unknown) expressions (unknown) (no (unknown) (unknown) Heart:? No (units (unk nown) date) significant unknown) findings. (unknown) (no (unknown) (unknown) Hgb (12.0-16.0) (units (unknown) date) g/dL unknown) (unknown) (no (unknown) (unknown) Hgb 12.2 (units (unkno wn) date) (12.0-16.0) g/dL unknown) (unknown) (no (unknown) (unknown) History of (units (unk nown) date) Present Illness unknown) (unknown) (no (unknown) (unknown) I was immediately (units (unknown) date) available in the unknown) department for consultation. Documentation (unknown) (no (unknown) (unknown) IMPRESSION:? No (units (unknown) date) acute abdominal unknown) pelvic pathology.? Normal appendix.? Gallbladder (unknown) (no (unknown) (unknown) INDICATIONS:? ruq (units (unknown) date) pain which unknown) radiates to back, left pelvic pain? (unknown) (no (unknown) (unknown) Image quality:? (units (unknown) date) Excellent.? unknown) (unknown) (no (unknown) (unknown) Imaging Data (units (u nknown) date) unknown) (unknown) (no (unknown) (unknown) Independently (units ( unknown) date) reviewed vitals unknown) signs and nursing notes. (unknown) (no (unknown) (unknown) Initial Vital (units ( unknown) date) Signs unknown) (unknown) (no (unknown) (unknown) Initial Vital (units ( unknown) date) Signs: unknown) (unknown) (no (unknown) (unknown) Instructions: (units ( unknown) date) Muscle Strain, unknown) Costochondritis (unknown) (no (unknown) (unknown) Kidneys and (units (un known) date) Ureters:? unknown) Unremarkable.? ? (unknown) (no (unknown) (unknown) Lab Data (units (unkno wn) date) unknown) (unknown) (no (unknown) (unknown) Labs: (units (unkno wn) date) unknown) (unknown) (no (unknown) (unknown) Likely (units (unkno wn) date) physiologic unknown) appearance of the pelvic organs on CT.? If there is concern (unknown) (no (unknown) (unknown) Lipase (23-300) (units (unknown) date) U/L unknown) (unknown) (no (unknown) (unknown) Lipase 80 (units (unkn own) date) (23-300) U/L unknown) (unknown) (no (unknown) (unknown) Lipase Stat (units (un known) date) unknown) (unknown) (no (unknown) (unknown) Liver:? (units (unkno wn) date) Unremarkable.? ? unknown) (unknown) (no (unknown) (unknown) Lung bases:? (units (u nknown) date) Unremarkable. unknown) (unknown) (no (unknown) (unknown) Lymph # (Auto) (units (unknown) date) (4334-8301) /uL unknown) (unknown) (no (unknown) (unknown) Lymph # (Auto) (units (unknown) date) 2500 (9774-5360) unknown) /uL (unknown) (no (unknown) (unknown) Lymph % (Auto) (units (unknown) date) (25-40) % unknown) (unknown) (no (unknown) (unknown) Lymph % (Auto) (units (unknown) date) 35.6 (25-40) % unknown) (unknown) (no (unknown) (unknown) MCH (26-34) PG (units (unknown) date) unknown) (unknown) (no (unknown) (unknown) MCH 24.3 L (units (unk nown) date) (26-34) PG unknown) (unknown) (no (unknown) (unknown) MCHC (30-36) % (units (unknown) date) unknown) (unknown) (no (unknown) (unknown) MCHC 32.2 (30-36) (units (unknown) date) % unknown) (unknown) (no (unknown) (unknown) MCV (80-100) fL (units (unknown) date) unknown) (unknown) (no (unknown) (unknown) MCV 75.4 L (units (unk nown) date) (80-100) fL unknown) (unknown) (no (unknown) (unknown) MDM - Abdominal (units (unknown) date) Pain unknown) (unknown) (no (unknown) (unknown) MDM Narrative (units ( unknown) date) unknown) (unknown) (no (unknown) (unknown) MSK: denies joint (units (unknown) date) pain, muscle unknown) weakness (unknown) (no (unknown) (unknown) MSK: moves all (units (unknown) date) extremities, unknown) neurovascularly intact, no weakness, normal tone (unknown) (no (unknown) (unknown) Medical decision (units (unknown) date) making narrative: unknown) (unknown) (no (unknown) (unknown) Miscellaneous: No (units (unknown) date) hernias are seen. unknown) ? ? (unknown) (no (unknown) (unknown) Mode of arrival: (units (unknown) date) Ambulatory unknown) (unknown) (no (unknown) (unknown) [place] # (Auto) (units ( unknown) date) (0-900) /uL unknown) (unknown) (no (unknown) (unknown) [place] # (Auto) 700 (units (unknown) date) (0-900) /uL unknown) (unknown) (no (unknown) (unknown) [place] % (Auto) (units ( unknown) date) (3-14) % unknown) (unknown) (no (unknown) (unknown) [place] % (Auto) (units ( unknown) date) 10.6 (3-14) % unknown) (unknown) (no (unknown) (unknown) Mouth/Throat: (units ( unknown) date) moist mucus unknown) membranes (unknown) (no (unknown) (unknown) N gonorrhoeae DNA (units (unknown) date) (PCR) unknown) (unknown) (no (unknown) (unknown) N gonorrhoeae DNA (units (unknown) date) (PCR) Not detected unknown) (unknown) (no (unknown) (unknown) Narrative (units (unkn own) date) unknown) (unknown) (no (unknown) (unknown) Narrative: (units (unk nown) date) unknown) (unknown) (no (unknown) (unknown) Neck: supple (units (u nknown) date) unknown) (unknown) (no (unknown) (unknown) Neuro: denies (units ( unknown) date) numbness, tingling unknown) (unknown) (no (unknown) (unknown) Neuro: normal (units ( unknown) date) speech and unknown) cognition, A+O x3 (unknown) (no (unknown) (unknown) Neut # (Auto) (units ( unknown) date) (9388-2047) /uL unknown) (unknown) (no (unknown) (unknown) Neut # (Auto) (units ( unknown) date) 3600 (6186-7764) unknown) /uL (unknown) (no (unknown) (unknown) Neut % (Auto) (units ( unknown) date) (50-75) % unknown) (unknown) (no (unknown) (unknown) Neut % (Auto) (units ( unknown) date) 51.0 (50-75) % unknown) (unknown) (no (unknown) (unknown) No Action (units (unkn own) date) unknown) (unknown) (no (unknown) (unknown) No Known Drug (units ( unknown) date) Allergies Allergy unknown) Verified 04/07/22 13:05 (unknown) (no (unknown) (unknown) Nose: nares (units (un known) date) patent, no unknown) rhinorrhea (unknown) (no (unknown) (unknown) Ordered: (units (unkno wn) date) unknown) (unknown) (no (unknown) (unknown) Orders (units (unkno wn) date) unknown) (unknown) (no (unknown) (unknown) Oxygen Delivery (units (unknown) date) Method 04/07/22 unknown) 13:00 (unknown) (no (unknown) (unknown) Oxygen Delivery (units (unknown) date) Method Room Air unknown) Room Air (unknown) (no (unknown) (unknown) PELVIS: (units (unkno wn) date) unknown) (unknown) (no (unknown) (unknown) PROCEDURE:? CT (units (unknown) date) ABDOMEN PELVIS W unknown) CON (unknown) (no (unknown) (unknown) Pancreas:? (units (unk nown) date) Unremarkable.? ? unknown) (unknown) (no (unknown) (unknown) Patient (units (unkno wn) date) Disposition: Home unknown) (unknown) (no (unknown) (unknown) Patient History (units (unknown) date) unknown) (unknown) (no (unknown) (unknown) Patient reports (units (unknown) date) that she is been unknown) doing warm compresses and this has been (unknown) (no (unknown) (unknown) Patient states (units (unknown) date) that she had a unknown) miscarriage a few months ago and has not had a (unknown) (no (unknown) (unknown) Patient's urine (units (unknown) date) was unknown) negative, this could be gas pain, costochondritis, (unknown) (no (unknown) (unknown) Patient: (units (unkno wn) date) Sites,[place] N unknown) MR#: [id number] (unknown) (no (unknown) (unknown) Pelvic Nodes: No (units (unknown) date) enlarged lymph unknown) nodes.? (unknown) (no (unknown) (unknown) Pelvic Organs:? (units (unknown) date) Likely physiologic unknown) appearance on CT (unknown) (no (unknown) (unknown) Peritoneum:? No (units (unknown) date) abnormal unknown) intraperitoneal fluid.? No free air.? (unknown) (no (unknown) (unknown) Point of care (units ( unknown) date) testing: unknown) (unknown) (no (unknown) (unknown) Potassium (units (unkn own) date) (3.4-5.1) mmol/L unknown) (unknown) (no (unknown) (unknown) Potassium 4.2 (units ( unknown) date) (3.4-5.1) mmol/L unknown) (unknown) (no (unknown) (unknown) Test (units (unknown) date) Results Negative unknown) (unknown) (no (unknown) (unknown) Prescriptions: (units (unknown) date) unknown) (unknown) (no (unknown) (unknown) Psych: mental (units ( unknown) date) status is grossly unknown) normal, congruent mood, normal affect, pleasant (unknown) (no (unknown) (unknown) Pulse Oximetry 99 (units (unknown) date) 04/07/22 13:00 unknown) (unknown) (no (unknown) (unknown) Pulse Oximetry 99 (units (unknown) date) 100 unknown) (unknown) (no (unknown) (unknown) Pulse Rate 86 (units ( unknown) date) 04/07/22 13:00 unknown) (unknown) (no (unknown) (unknown) Pulse Rate 86 74 (units (unknown) date) unknown) (unknown) (no (unknown) (unknown) RDW (11.6-14.8) % (units (unknown) date) unknown) (unknown) (no (unknown) (unknown) RDW 19.4 H (units (unk nown) date) (11.6-14.8) % unknown) (unknown) (no (unknown) (unknown) Related Data (units (u nknown) date) unknown) (unknown) (no (unknown) (unknown) Respiratory Rate (units (unknown) date) 14 04/07/22 13:00 unknown) (unknown) (no (unknown) (unknown) Respiratory Rate (units (unknown) date) 14 unknown) (unknown) (no (unknown) (unknown) Respiratory: (units (u nknown) date) denies dyspnea, unknown) cough, orthopnea (unknown) (no (unknown) (unknown) Respiratory: (units (u nknown) date) normal effort, unknown) able to speak in complete sentences, no audible (unknown) (no (unknown) (unknown) Result diagrams: (units (unknown) date) unknown) (unknown) (no (unknown) (unknown) Review of Systems (units (unknown) date) unknown) (unknown) (no (unknown) (unknown) SARS-CoV-2 (PCR) (units (unknown) date) (Negative) unknown) (unknown) (no (unknown) (unknown) SARS-CoV-2 (PCR) (units (unknown) date) Negative unknown) (Negative) (unknown) (no (unknown) (unknown) Signed By: (units (unk nown) date) unknown) (unknown) (no (unknown) (unknown) Skin: brisk (units (un known) date) capillary refill, unknown) no rash, no erythema (unknown) (no (unknown) (unknown) Skin: denies (units (u nknown) date) rash, itching, unknown) skin lesions or other (unknown) (no (unknown) (unknown) Smoking Status: (units (unknown) date) Unknown if ever unknown) smoked (unknown) (no (unknown) (unknown) Smoking Status: (units (unknown) date) Unknown if ever unknown) smoked (unknown) (no (unknown) (unknown) Social History (units (unknown) date) (Reviewed 04/07/22 unknown) @ 15:50 by Lindsay Ruiz [facility]) (unknown) (no (unknown) (unknown) Sodium (137-145) (units (unknown) date) mmol/L unknown) (unknown) (no (unknown) (unknown) Sodium 136 L (units (u nknown) date) (137-145) mmol/L unknown) (unknown) (no (unknown) (unknown) Source: patient (units (unknown) date) unknown) (unknown) (no (unknown) (unknown) Spleen:? (units (unkno wn) date) Unremarkable.? ? unknown) (unknown) (no (unknown) (unknown) Stated Complaint: (units (unknown) date) Stomach pains, unknown) Feeling unwell (unknown) (no (unknown) (unknown) Stomach and (units (un known) date) Bowel:? Normal unknown) appendix.? No bowel obstruction. (unknown) (no (unknown) (unknown) Substance Use (units ( unknown) date) Type: does not use unknown) (unknown) (no (unknown) (unknown) TECHNIQUE:? (units (un known) date) unknown) (unknown) (no (unknown) (unknown) Temperature 97.9 (units (unknown) date) F 04/07/22 13:00 unknown) (unknown) (no (unknown) (unknown) Temperature 97.9 (units (unknown) date) F unknown) (unknown) (no (unknown) (unknown) This is a (units (unkn own) date) 21-year-old female unknown) who presents to the emergency department (unknown) (no (unknown) (unknown) Time Seen by (units (u nknown) date) Provider: 04/07/22 unknown) 12:48 (unknown) (no (unknown) (unknown) Total Bilirubin (units (unknown) date) (0.2-1.3) mg/dL unknown) (unknown) (no (unknown) (unknown) Total Bilirubin (units (unknown) date) 0.2 (0.2-1.3) unknown) mg/dL (unknown) (no (unknown) (unknown) Total Creatine (units (unknown) date) Kinase (30-135) unknown) U/L (unknown) (no (unknown) (unknown) Total Creatine (units (unknown) date) Kinase 56 (30-135) unknown) U/L (unknown) (no (unknown) (unknown) Total Protein (units ( unknown) date) (6.3-8.2) g/dL unknown) (unknown) (no (unknown) (unknown) Total Protein 7.4 (units (unknown) date) (6.3-8.2) g/dL unknown) (unknown) (no (unknown) (unknown) Troponin + CK (units ( unknown) date) Cardiac Panel Stat unknown) (unknown) (no (unknown) (unknown) Troponin I (units (unk nown) date) (0.01-0.034) ng/mL unknown) (unknown) (no (unknown) (unknown) Troponin I < (units (u nknown) date) 0.012 (0.01-0.034) unknown) ng/mL (unknown) (no (unknown) (unknown) Ur Chlamydia DNA (units (unknown) date) (PCR) unknown) (unknown) (no (unknown) (unknown) Ur Chlamydia DNA (units (unknown) date) (PCR) Not detected unknown) (unknown) (no (unknown) (unknown) Urine Specific (units (unknown) date) [place] 1.010 unknown) (unknown) (no (unknown) (unknown) Ventral Wall:? (units (unknown) date) Small fat unknown) containing umbilical hernia. (unknown) (no (unknown) (unknown) Vessels:? Aorta (units (unknown) date) and inferior vena unknown) cava are normal in size.? (unknown) (no (unknown) (unknown) Visit Report (units (u nknown) date) Forms: Patient unknown) Portal/API (unknown) (no (unknown) (unknown) Vital Signs (units (un known) date) unknown) (unknown) (no (unknown) (unknown) Vital signs: (units (u nknown) date) unknown) (unknown) (no (unknown) (unknown) [Embedded Image (units (unknown) date) Not Available] unknown) (unknown) (no (unknown) (unknown) abdomen did not (units (unknown) date) show any abnormal unknown) pelvic findings, your appendix and gallbladder (unknown) (no (unknown) (unknown) abnormal findings (units (unknown) date) on physical exam. unknown) She is encouraged to follow-up with her PCP (unknown) (no (unknown) (unknown) abnormal. Your (units (unknown) date) was unknown) negative, your COVID was negative, your blood (unknown) (no (unknown) (unknown) adjustment (units (unk nown) date) unknown) (unknown) (no (unknown) (unknown) agrees to (units (unkn own) date) discharge home. unknown) All questions and concerns answered at this time. (unknown) (no (unknown) (unknown) alcohol intake (units (unknown) date) frequency: unknown) holidays/special occasions only (unknown) (no (unknown) (unknown) all over her (units (u nknown) date) abdomen, without unknown) prior history of abdominal surgery. CT abdomen (unknown) (no (unknown) (unknown) and cooperative (units (unknown) date) unknown) (unknown) (no (unknown) (unknown) and pelvis was (units (unknown) date) obtained and was unknown) negative for acute abdominopelvic pathology, (unknown) (no (unknown) (unknown) and see if this (units (unknown) date) helps, have light unknown) activity and practice taking deep breaths, try (unknown) (no (unknown) (unknown) appointment. Let (units (unknown) date) them know you were unknown) seen in the Emergency Department and that we (unknown) (no (unknown) (unknown) asked that you be (units (unknown) date) seen for unknown) follow-up. We will electronically transmit a record (unknown) (no (unknown) (unknown) bases to the (units (u nknown) date) pubic symphysis.? unknown) Coronal and sagittal reformats were performed.? (unknown) (no (unknown) (unknown) breath (units (unkno wn) date) unknown) (unknown) (no (unknown) (unknown) chest around her (units (unknown) date) mid axillary 4th unknown) and 5th rib space. She denies constipation, (unknown) (no (unknown) (unknown) collapsed. (units (unk nown) date) unknown) (unknown) (no (unknown) (unknown) come and go and do (units (unknown) date) not have any unknown) relation to food. Patient states that sometimes (unknown) (no (unknown) (unknown) complaining (units (un known) date) intermittent pain unknown) in her right upper chest, and in her pelvis which (unknown) (no (unknown) (unknown) complaining of (units (unknown) date) right-sided rib unknown) pain, pelvic pain, irregular periods since her (unknown) (no (unknown) (unknown) compresses or (units ( unknown) date) heat pads to help unknown) treat this pain, take ibuprofen every 6 hours (unknown) (no (unknown) (unknown) concerning (units (unk nown) date) symptoms, such as unknown) [fever greater than 101F, chills, worsening pain, (unknown) (no (unknown) (unknown) constipation or (units (unknown) date) diarrhea, denies unknown) flank pain (unknown) (no (unknown) (unknown) costochondritis (units (unknown) date) from your ribs. unknown) Please stay hydrated, you can try warm (unknown) (no (unknown) (unknown) counts are (units (unk nown) date) normal, your EKG unknown) does not show any abnormal cardiac findings. Your (unknown) (no (unknown) (unknown) denies abnormal (units (unknown) date) vaginal discharge unknown) (unknown) (no (unknown) (unknown) denies fever, (units ( unknown) date) nausea vomiting, unknown) changes to her stool, shortness of breath, (unknown) (no (unknown) (unknown) department. She (units (unknown) date) is nontoxic unknown) appearing without any abnormal vital signs or (unknown) (no (unknown) (unknown) discharge, denies (units (unknown) date) fever, denies unknown) chills, denies flank pain, denies weakness. (unknown) (no (unknown) (unknown) doxycycline (units (un known) date) hyclate 100 mg unknown) tablet 100 mg PO BID #20 tabs 12/29/21 (unknown) (no (unknown) (unknown) establish care (units (unknown) date) with one of the unknown) [facility] primary care providers. (unknown) (no (unknown) (unknown) fluconazole 150 (units (unknown) date) mg tablet 150 mg unknown) PO Q3D 2 doses #2 tabs 12/29/21 (unknown) (no (unknown) (unknown) for any new or (units ( unknown) date) worsening unknown) symptoms. It could be a viral illness starting, if you (unknown) (no (unknown) (unknown) for pelvic (units (unk nown) date) unknown) (unknown) (no (unknown) (unknown) frequently, this (units (unknown) date) does not appear to unknown) be anything dangerous. Please follow-up (unknown) (no (unknown) (unknown) has been informed (units (unknown) date) of results. unknown) Patient has been given strict return to ER (unknown) (no (unknown) (unknown) has been (units (unkno wn) date) reviewed. unknown) (unknown) (no (unknown) (unknown) helpful, she (units (u nknown) date) denies taking any unknown) medication prior to arrival, and states she does (unknown) (no (unknown) (unknown) history of an (units ( unknown) date) ovarian cyst, unknown) pelvic inflammatory disease on 12/28/2021 and was (unknown) (no (unknown) (unknown) home. Vital signs (units (unknown) date) are stable on unknown) repeat examination is unremarkable. Patient (unknown) (no (unknown) (unknown) if you have (units (un known) date) symptoms that you unknown) can not treat at home. (unknown) (no (unknown) (unknown) improved without (units (unknown) date) complications. She unknown) denies any recent fever or other illness. (unknown) (no (unknown) (unknown) liver enzymes, (units (unknown) date) cardiac workup is unknown) all negative, UA is negative for abnormality, (unknown) (no (unknown) (unknown) miscarriage a few (units (unknown) date) months ago and unknown) denies any systemic symptoms of illness. She (unknown) (no (unknown) (unknown) normal appendix, (units (unknown) date) gallbladder is unknown) collapsed, no intra-abdominal free fluid or air, (unknown) (no (unknown) (unknown) normal period (units ( unknown) date) since, her last unknown) menstrual cycle was March 19, 2022. Patient has a (unknown) (no (unknown) (unknown) not like to take (units (unknown) date) medications. She unknown) states it is worse when she takes a deep (unknown) (no (unknown) (unknown) not require any (units (unknown) date) pain medication or unknown) nausea medication while in the emergency (unknown) (no (unknown) (unknown) of mA and/or kV (units (unknown) date) according to unknown) patient size.? (unknown) (no (unknown) (unknown) of today's note (units (unknown) date) if your PCP is in unknown) our system (unknown) (no (unknown) (unknown) pathology, (units (unk nown) date) consider unknown) ultrasound.? (unknown) (no (unknown) (unknown) persistent (units (unk nown) date) vomiting or other unknown) bothersome symptoms]. (unknown) (no (unknown) (unknown) precautions for (units (unknown) date) any new or unknown) worsening symptoms. Patient understands to follow up (unknown) (no (unknown) (unknown) problem. Patient (units (unknown) date) reports feeling unknown) well and is able to discharge home, she did (unknown) (no (unknown) (unknown) radiation dose (units (unknown) date) reduction, the unknown) following was used:? automated exposure control, (unknown) (no (unknown) (unknown) reproducible right (units (unknown) date) sided rib pain, no unknown) explanation for her left-sided pelvic pain (unknown) (no (unknown) (unknown) she does not have (units (unknown) date) any nausea, unknown) changes to her stool, she denies abnormal vaginal (unknown) (no (unknown) (unknown) she is starving (units (unknown) date) and other times unknown) she is having sharp pain in the right upper (unknown) (no (unknown) (unknown) tenderness with (units (unknown) date) exam, without unknown) guarding or rebound. (unknown) (no (unknown) (unknown) the lung (units (unkno wn) date) unknown) (unknown) (no (unknown) (unknown) treated with (units (un known) date) doxycycline, unknown) fluconazole for Miriam vaginitis and reports that she (unknown) (no (unknown) (unknown) unremarkable (units (u nknown) date) without unknown) leukocytosis or electrolyte abnormality, no elevation in (unknown) (no (unknown) (unknown) urine chlamydia (units (unknown) date) and gonorrhea PCRs unknown) are also negative, COVID PCR is negative. CT (unknown) (no (unknown) (unknown) urine does not (units (unknown) date) show any unknown) infection. This is most likely a muscle strain or (unknown) (no (unknown) (unknown) weeks. I hope you (units (unknown) date) feel better soon, unknown) please return to the emergency department (unknown) (no (unknown) (unknown) wheezing, (units (unkn own) date) imbalance, unknown) dizziness, or any other symptom. Her lab work is grossly (unknown) (no (unknown) (unknown) wheezing, (units (unkn own) date) stridor, or rales. unknown) No retractions or tachypnea. (unknown) (no (unknown) (unknown) with your regular (units (unknown) date) doctor as needed unknown) if you do not get better within the next 2 (unknown) (no (unknown) (unknown) yourself with (units ( unknown) date) medications unknown) [id number] and come to the emergency department Result panel 14 (unknown) (no date) (unknown) (unknown) 213.5 mIU/mL (unkn own) Result panel 15 (unknown) (no date) (unknown) (unknown) 5667 mIU/mL (unkn own) Result panel 16 (unknown) (no (unknown) (unknown) (no value) (units (unk nown) date) unknown) (unknown) (no (unknown) (unknown) 10/26/21 6 (units (unk nown) date) spontaneous unknown) (unknown) (no (unknown) (unknown) 03 (units (unkno wn) date) unknown) (unknown) (no (unknown) (unknown) 10/27/20 5 (units (unk nown) date) spontaneous unknown) (unknown) (no (unknown) (unknown) [id number] (units (unkno wn) date) unknown) (unknown) (no (unknown) (unknown) 01/26/22 5 (units (unk nown) date) spontaneous unknown) (unknown) (no (unknown) (unknown) 05/04/22 (units (unkno wn) date) unknown) (unknown) (no (unknown) (unknown) 05/04/22] (units (unkn own) date) unknown) (unknown) (no (unknown) (unknown) 06/29/20 5 (units (unk nown) date) spontaneous unknown) (unknown) (no (unknown) (unknown) Age/Sex: 21 / F (units (unknown) date) Date of Service: unknown) (unknown) (no (unknown) (unknown) Allergies (units (unkn own) date) unknown) (unknown) (no (unknown) (unknown) LISA Watson (units ( unknown) date) [id number] unknown) (unknown) (no (unknown) (unknown) Anxiety (units (unkno wn) date) unknown) (unknown) (no (unknown) (unknown) Assessment and (units (unknown) date) Plan unknown) (unknown) (no (unknown) (unknown) Attending Dr: (units ( unknown) date) Tyesha Scales unknown) Daryl BEE (unknown) (no (unknown) (unknown) Autism (units (unkno wn) date) unknown) (unknown) (no (unknown) (unknown) Bipolar disorder (units (unknown) date) unknown) (unknown) (no (unknown) (unknown) (units (unkno wn) date) Plan/Preferences unknown) (unknown) (no (unknown) (unknown) Planning (units (unknown) date) unknown) (unknown) (no (unknown) (unknown) Breastfeed Preg (units (unknown) date) Comp Name unknown) (unknown) (no (unknown) (unknown) Brother Anxiety (units (unknown) date) unknown) (unknown) (no (unknown) (unknown) Confirmed (units (unkn own) date) 05/04/22] unknown) (unknown) (no (unknown) (unknown) Current Estimate (units (unknown) date) 04/28/23 LMP unknown) (Certain) 6w 4d (unknown) (no (unknown) (unknown) Current (units (unkno wn) date) History unknown) (unknown) (no (unknown) (unknown) : 2000 (units (unknown) date) Acct:[id number] unknown) (unknown) (no (unknown) (unknown) Date of positive (units (unknown) date) home unknown) test: 04/10/22 (unknown) (no (unknown) (unknown) Del. Date (units (unkn own) date) GA/Weeks Labor unknown) Lgth Wt Sex Route Outcome Anesthesia Place (unknown) (no (unknown) (unknown) Delv (units (unkno wn) date) unknown) (unknown) (no (unknown) (unknown) Depression (units (unk nown) date) unknown) (unknown) (no (unknown) (unknown) Dept at (units (unkno wn) date) . unknown) (unknown) (no (unknown) (unknown) Diet and (units (unkno wn) date) Exercise unknown) (unknown) (no (unknown) (unknown) Documented By: (units (unknown) date) Tyesha Brito unknown) Loyda BEE 05/04/22 09 (unknown) (no (unknown) (unknown) Draft (units (unkno wn) date) unknown) (unknown) (no (unknown) (unknown) TIFFANIE Calculator (units (unknown) date) unknown) (unknown) (no (unknown) (unknown) Estimated (units (unkn own) date) Delivery Date unknown) Method Current (unknown) (no (unknown) (unknown) Family History (units (unknown) date) (Updated 05/04/22 unknown) @ 09:03 by Autumn Teixeira RN) (unknown) (no (unknown) (unknown) Father Diabetes (units (unknown) date) mellitus unknown) (unknown) (no (unknown) (unknown) Father of Baby: (units (unknown) date) same unknown) (unknown) (no (unknown) (unknown) [facility] unknown) (unknown) (no (unknown) (unknown) Grandfather (units (un known) date) Diabetes mellitus unknown) (unknown) (no (unknown) (unknown) Grandfather (units (un known) date) Family unknown) estrangement (unknown) (no (unknown) (unknown) Grandmother (units (un known) date) Cancer unknown) (unknown) (no (unknown) (unknown) Grandmother (units (un known) date) Diabetes unknown) mellitus (unknown) (no (unknown) (unknown) 5 (units (unkn own) date) Multiple births 0 unknown) (unknown) (no (unknown) (unknown) H/O hand surgery (units (unknown) date) unknown) (unknown) (no (unknown) (unknown) 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 (unknown) (no (unknown) (unknown) History of (units (unk nown) date) removal of skin unknown) mole (unknown) (no (unknown) (unknown) Hx # (units (u nknown) date) Pregnancies 0 unknown) Elective abortions 0 (unknown) (no (unknown) (unknown) Hx # Term (units (unkn own) date) Pregnancies 0 unknown) Ectopic pregnancies 0 (unknown) (no (unknown) (unknown) Intake Clinical (units (unknown) date) Staff unknown) (unknown) (no (unknown) (unknown) Intake performed (units (unknown) date) by: unknown) Tasneem Teixeira (unknown) (no (unknown) (unknown) Intake (units (unkno wn) date) unknown) (unknown) (no (unknown) (unknown) Loc: [facility] (units (unkno wn) date) unknown) (unknown) (no (unknown) (unknown) Lung cancer (units (un known) date) unknown) (unknown) (no (unknown) (unknown) Marital status: (units (unknown) date) unknown) (unknown) (no (unknown) (unknown) Medical History (units (unknown) date) (Updated 05/04/22 unknown) @ 09:04 by Autumn Teixeira RN) (unknown) (no (unknown) (unknown) Medications (units (un known) date) unknown) (unknown) (no (unknown) (unknown) Medications: (units (u nknown) date) unknown) (unknown) (no (unknown) (unknown) Mother (units (unkno wn) date) Gestational unknown) diabetes (unknown) (no (unknown) (unknown) New (units (unkno wn) date) unknown) (unknown) (no (unknown) (unknown) No Known Drug (units ( unknown) date) Allergies Allergy unknown) (Verified 05/04/22 08:53) (unknown) (no (unknown) (unknown) Number of Living (units (unknown) date) Children 0 unknown) (unknown) (no (unknown) (unknown) OB Office Visit (units (unknown) date) unknown) (unknown) (no (unknown) (unknown) On control (units (unknown) date) at conception?: unknown) No (unknown) (no (unknown) (unknown) PFSH (units (unkno wn) date) unknown) (unknown) (no (unknown) (unknown) PTSD (units (unkno wn) date) (post-traumatic unknown) stress disorder) (unknown) (no (unknown) (unknown) Para 0 (units (unkno wn) date) Spontaneous unknown) abortions 4 (unknown) (no (unknown) (unknown) Partner: [place] (units (unknown) date) Sites unknown) (unknown) (no (unknown) (unknown) Past Pregnancies (units (unknown) date) unknown) (unknown) (no (unknown) (unknown) [facility]no wn) [id number] (unknown) (no (unknown) (unknown) Watershed Coordinator: (units ( unknown) date) CHAR Garg unknown) (unknown) (no (unknown) (unknown) (units (unkn own) date) History unknown) (unknown) (no (unknown) (unknown) Initial (units (unknown) date) Assessment unknown) (unknown) (no (unknown) (unknown) Visit (units (unknown) date) unknown) (unknown) (no (unknown) (unknown) Primary Care (units (u nknown) date) Provider: CHAR Garg (unknown) (no (unknown) (unknown) Primary Ob (units (unk nown) date) Provider: unknown) Tyesha Brito (unknown) (no (unknown) (unknown) Prostate cancer (units (unknown) date) unknown) (unknown) (no (unknown) (unknown) Providers (units (unkn own) date) unknown) (unknown) (no (unknown) (unknown) Reason For Visit (units (unknown) date) unknown) (unknown) (no (unknown) (unknown) Recurrent UTI (units ( unknown) date) unknown) (unknown) (no (unknown) (unknown) 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 (unknown) (no (unknown) (unknown) Safety (units (unkno wn) date) unknown) (unknown) (no (unknown) (unknown) Schizophrenia (units ( unknown) date) unknown) (unknown) (no (unknown) (unknown) Signed By: (units (unk nown) date) unknown) (unknown) (no (unknown) (unknown) Sister Anxiety (units (unknown) date) unknown) (unknown) (no (unknown) (unknown) Sister (units (unkno wn) date) Depression unknown) (unknown) (no (unknown) (unknown) Smoking Status: (units (unknown) date) Former smoker unknown) (former vape use, quit) (unknown) (no (unknown) (unknown) Social History (units (unknown) date) unknown) (unknown) (no (unknown) (unknown) Surgical History (units (unknown) date) (Updated 05/04/22 unknown) @ 08:56 by Autumn Teixeira RN) (unknown) (no (unknown) (unknown) Symptoms since (units (unknown) date) LMP: Reports unknown) amenorrhea, nausea, vomiting, fatigue, breast (unknown) (no (unknown) (unknown) This note may (units ( unknown) date) have been all or unknown) partially generated using voice recognition (unknown) (no (unknown) (unknown) Tobacco + (units (unkn own) date) Substance Use unknown) (unknown) (no (unknown) (unknown) Tobacco Status (units (unknown) date) unknown) (unknown) (no (unknown) (unknown) Type(s) of (units (unk nown) date) exercise: walking unknown) (unknown) (no (unknown) (unknown) Visit Reasons: (units (unknown) date) Telephone intake unknown) for [place] (unknown) (no (unknown) (unknown) WG (units (unkno wn) date) unknown) (unknown) (no (unknown) (unknown) alcohol intake: (units (unknown) date) never unknown) (unknown) (no (unknown) (unknown) caffeine: Yes (units ( unknown) date) (occasionally, unknown) aware of 200mg limit) (unknown) (no (unknown) (unknown) carbon monox (units (u nknown) date) detector in home: unknown) Yes (unknown) (no (unknown) (unknown) coenzyme Q10 (Co (units (unknown) date) Q-10) 100 mg PO unknown) DAILY (unknown) (no (unknown) (unknown) coenzyme Q10 100 (units (unknown) date) mg capsule (Co unknown) Q-10) 100 mg PO DAILY 04/27/22 [History (unknown) (no (unknown) (unknown) current (units (unkno wn) date) occupational unknown) exposures/hazards : No (unknown) (no (unknown) (unknown) daily servings (units (unknown) date) fruits/ve-4 unknown) (unknown) (no (unknown) (unknown) do you feel safe (units (unknown) date) at home: Yes unknown) (unknown) (no (unknown) (unknown) duration: 15-30 (units (unknown) date) minutes/day unknown) (unknown) (no (unknown) (unknown) during the past (units (unknown) date) year weight has: unknown) other ([id number] lb) (unknown) (no (unknown) (unknown) education level: (units (unknown) date) high school unknown) (unknown) (no (unknown) (unknown) ferrous sulfate (units (unknown) date) 325 mg (65 mg unknown) iron) tablet 325 mg PO DAILY 04/27/22 [History (unknown) (no (unknown) (unknown) ferrous sulfate (units (unknown) date) 325 mg PO DAILY unknown) (unknown) (no (unknown) (unknown) fire (units (unkno wn) date) 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 unknown) home: Yes (unknown) (no (unknown) (unknown) firearms in (units (un known) date) home: Yes unknown) firearms unloaded and locked: Yes (unknown) (no (unknown) (unknown) folic acid 0.5 (units (unknown) date) mg PO DAILY unknown) (unknown) (no (unknown) (unknown) folic acid 1 mg (units (unknown) date) tablet 0.5 mg PO unknown) DAILY 04/27/22 [History Confirmed 05/04/22] (unknown) (no (unknown) (unknown) have occurred. (units (unknown) date) If there are any unknown) questions, please contact the Medical Records (unknown) (no (unknown) (unknown) household (units (unkn own) date) members: spouse unknown) (unknown) (no (unknown) (unknown) housing: (units (unkno wn) date) apartment unknown) (unknown) (no (unknown) (unknown) lives (units (unkno wn) date) independently: unknown) Yes (unknown) (no (unknown) (unknown) marital status: (units (unknown) date) unknown) (unknown) (no (unknown) (unknown) may occur. (units (unk nown) date) Occasional unknown) wrong-word or 'sound-alike' substitutions may have (unknown) (no (unknown) (unknown) number of (units (unkn own) date) children: 0 unknown) (unknown) (no (unknown) (unknown) occupational (units (u nknown) date) status: unknown) unemployed (unknown) (no (unknown) (unknown) occurred due to (units (unknown) date) the inherent unknown) limitations of voice recognition software. Please (unknown) (no (unknown) (unknown) pets and (units (unkno wn) date) animals: Yes (1 unknown) dog 1 cat; aware of toxo) (unknown) (no (unknown) (unknown) prenat.vits,jack, (units (unknown) date) [id number] 1 unknown) tab PO DAILY 04/27/22 [History Confirmed (unknown) (no (unknown) (unknown) prenat.vits,jack, (units (unknown) date) [id number] 1 unknown) tab PO DAILY (unknown) (no (unknown) (unknown) read the note (units ( unknown) date) carefully and unknown) recognize, using context, where these substitutions (unknown) (no (unknown) (unknown) seatbelt use: (units ( unknown) date) always unknown) (unknown) (no (unknown) (unknown) second hand (units (un known) date) exposure: Yes unknown) (while visiting family (mom smokes)) (unknown) (no (unknown) (unknown) software. (units (unkn own) date) Although every unknown) effort is made to edit content, grinder hand errors (unknown) (no (unknown) (unknown) special mirella (units ( unknown) date) needs: No unknown) (unknown) (no (unknown) (unknown) substance use (units ( unknown) date) type: marijuana unknown) (quit when she learned she was ) (unknown) (no (unknown) (unknown) tenderness, (units (un known) date) urinary unknown) frequency, irritability, bloating and other (heartburn) (unknown) (no (unknown) (unknown) travel history: (units (unknown) date) recent (domestic unknown) only) (unknown) (no (unknown) (unknown) water heater (units (u nknown) date) temp set < 120 unknown) deg: No (Will call landlord to adjust ) (unknown) (no (unknown) (unknown) well-balanced (units ( unknown) date) diet: daily or unknown) most days (unknown) (no (unknown) (unknown) working smoke (units ( unknown) date) detector in home: unknown) Yes Result panel 17 (unknown) (no (unknown) (unknown) (no value) (units (unk nown) date) unknown) (unknown) (no (unknown) (unknown) Genetic (units (unkn own) date) Screening/Teratol unknown) ogy Counseling - Includes patient, baby's father, or (unknown) (no (unknown) (unknown) 10/26/21 6 (units (unk nown) date) spontaneous unknown) (unknown) (no (unknown) (unknown) 03 (units (unkno wn) date) unknown) (unknown) (no (unknown) (unknown) 10/27/20 5 (units (unk nown) date) spontaneous unknown) (unknown) (no (unknown) (unknown) [id number] (units (unkno wn) date) unknown) (unknown) (no (unknown) (unknown) 01/26/22 5 (units (unk nown) date) spontaneous unknown) (unknown) (no (unknown) (unknown) 05/04/22 (units (unkno wn) date) unknown) (unknown) (no (unknown) (unknown) 05/04/22] (units (unkn own) date) unknown) (unknown) (no (unknown) (unknown) 06/29/20 5 (units (unk nown) date) spontaneous unknown) (unknown) (no (unknown) (unknown) Age/Sex: 21 / F (units (unknown) date) Date of Service: unknown) (unknown) (no (unknown) (unknown) Allergies (units (unkn own) date) unknown) (unknown) (no (unknown) (unknown) [place], [place] (units ( unknown) date) [id number] unknown) (unknown) (no (unknown) (unknown) Aneuploidy (units (unk nown) date) Screening unknown) Offered: Accepted (undecided, will probably get quad (unknown) (no (unknown) (unknown) Anticipated (units (un known) date) course of unknown) care: discussed (unknown) (no (unknown) (unknown) Anxiety (units (unkno wn) date) unknown) (unknown) (no (unknown) (unknown) Assessment and (units (unknown) date) Plan unknown) (unknown) (no (unknown) (unknown) Attending Dr: (units ( unknown) date) Tyesha Scales unknown) Daryl BEE (unknown) (no (unknown) (unknown) Autism (units (unkno wn) date) unknown) (unknown) (no (unknown) (unknown) Bipolar disorder (units (unknown) date) unknown) (unknown) (no (unknown) (unknown) (units (unkno wn) date) Plan/Preferences unknown) (unknown) (no (unknown) (unknown) Planning (units (unknown) date) unknown) (unknown) (no (unknown) (unknown) Breastfeed Preg (units (unknown) date) Comp Name unknown) (unknown) (no (unknown) (unknown) Brother Anxiety (units (unknown) date) unknown) (unknown) (no (unknown) (unknown) Confirmed (units (unkn own) date) 05/04/22] unknown) (unknown) (no (unknown) (unknown) Current Estimate (units (unknown) date) 12/24/22 LMP unknown) (Certain) 6w 4d (unknown) (no (unknown) (unknown) Current (units (unkno wn) date) History unknown) (unknown) (no (unknown) (unknown) : 2000 (units (unknown) date) Acct:[id number] unknown) (unknown) (no (unknown) (unknown) Date of positive (units (unknown) date) home unknown) test: 04/10/22 (unknown) (no (unknown) (unknown) Del. Date (units (unkn own) date) GA/Weeks Labor unknown) Lgth Wt Sex Route Outcome Anesthesia Place (unknown) (no (unknown) (unknown) Delv (units (unkno wn) date) unknown) (unknown) (no (unknown) (unknown) Depression (units (unk nown) date) unknown) (unknown) (no (unknown) (unknown) Dept at (units (unkno wn) date) . unknown) (unknown) (no (unknown) (unknown) Diet and (units (unkno wn) date) Exercise unknown) (unknown) (no (unknown) (unknown) Documented By: (units (unknown) date) Tyesha Brito unknown) Loyda BEE 05/04/22 09 (unknown) (no (unknown) (unknown) Draft (units (unkno wn) date) unknown) (unknown) (no (unknown) (unknown) TIFFANIE Calculator (units (unknown) date) unknown) (unknown) (no (unknown) (unknown) Estimated (units (unkn own) date) Delivery Date unknown) Method Current (unknown) (no (unknown) (unknown) Family History (units (unknown) date) (Updated 05/04/22 unknown) @ 09:03 by Autumn Teixeira RN) (unknown) (no (unknown) (unknown) Father Diabetes (units (unknown) date) mellitus unknown) (unknown) (no (unknown) (unknown) Father of Baby: (units (unknown) date) same unknown) (unknown) (no (unknown) (unknown) [facility]) (unknown) (no (unknown) (unknown) First Trimester (units (unknown) date) Education unknown) Checklist (unknown) (no (unknown) (unknown) Genetic (units (unkno wn) date) Screening + unknown) Counseling (unknown) (no (unknown) (unknown) Genetic (units (unkno wn) date) Screening unknown) (unknown) (no (unknown) (unknown) Grandfather (units (un known) date) Diabetes mellitus unknown) (unknown) (no (unknown) (unknown) Grandfather (units (un known) date) Family unknown) estrangement (unknown) (no (unknown) (unknown) Grandmother (units (un known) date) Cancer unknown) (unknown) (no (unknown) (unknown) Grandmother (units (un known) date) Diabetes unknown) mellitus (unknown) (no (unknown) (unknown) 5 (units (unkn own) date) Multiple births 0 unknown) (unknown) (no (unknown) (unknown) H/O hand surgery (units (unknown) date) unknown) (unknown) (no (unknown) (unknown) HIV risk (units (unkno wn) date) evaluation: low unknown) risk (unknown) (no (unknown) (unknown) Hepatitis C risk (units (unknown) date) evaluation: low unknown) risk (unknown) (no (unknown) (unknown) History of (units (unk nown) date) Hepatitis B: No unknown) (unknown) (no (unknown) (unknown) History of (units (unk nown) date) Hepatitis C: No unknown) (unknown) (no (unknown) (unknown) 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 (unknown) (no (unknown) (unknown) History of (units (unk nown) date) removal of skin unknown) mole (unknown) (no (unknown) (unknown) Hx # (units (u nknown) date) Pregnancies 0 unknown) Elective abortions 0 (unknown) (no (unknown) (unknown) Hx # Term (units (unkn own) date) Pregnancies 0 unknown) Ectopic pregnancies 0 (unknown) (no (unknown) (unknown) Infection (units (unkn own) date) History unknown) (unknown) (no (unknown) (unknown) Intake Clinical (units (unknown) date) Staff unknown) (unknown) (no (unknown) (unknown) Intake performed (units (unknown) date) by: unknown) Tasneem Teixeira (unknown) (no (unknown) (unknown) Intake (units (unkno wn) date) unknown) (unknown) (no (unknown) (unknown) Live with (units (unkn own) date) someone with TB unknown) or exposed to TB: No (unknown) (no (unknown) (unknown) Loc: [facility] (units (unkno wn) date) unknown) (unknown) (no (unknown) (unknown) Lung cancer (units (un known) date) unknown) (unknown) (no (unknown) (unknown) Marital status: (units (unknown) date) unknown) (unknown) (no (unknown) (unknown) Medical History (units (unknown) date) (Updated 05/04/22 unknown) @ 09:20 by Autumn Teixeira RN) (unknown) (no (unknown) (unknown) Medications (units (un known) date) unknown) (unknown) (no (unknown) (unknown) Medications: (units (u nknown) date) unknown) (unknown) (no (unknown) (unknown) Mother (units (unkno wn) date) Gestational unknown) diabetes (unknown) (no (unknown) (unknown) New (units (unkno wn) date) unknown) (unknown) (no (unknown) (unknown) No Known Drug (units ( unknown) date) Allergies Allergy unknown) (Verified 05/04/22 08:53) (unknown) (no (unknown) (unknown) Number of Living (units (unknown) date) Children 0 unknown) (unknown) (no (unknown) (unknown) OB Office Visit (units (unknown) date) unknown) (unknown) (no (unknown) (unknown) On control (units (unknown) date) at conception?: unknown) No (unknown) (no (unknown) (unknown) PFSH (units (unkno wn) date) unknown) (unknown) (no (unknown) (unknown) PID (acute (units (unk nown) date) pelvic unknown) inflammatory disease) (unknown) (no (unknown) (unknown) PTSD (units (unkno wn) date) (post-traumatic unknown) stress disorder) (unknown) (no (unknown) (unknown) Para 0 (units (unkno wn) date) Spontaneous unknown) abortions 4 (unknown) (no (unknown) (unknown) Partner history (units (unknown) date) of STD: denies hx unknown) (unknown) (no (unknown) (unknown) Partner history (units (unknown) date) of genital unknown) herpes: No (unknown) (no (unknown) (unknown) Partner: [place] (units (unknown) date) Sites unknown) (unknown) (no (unknown) (unknown) Past Pregnancies (units (unknown) date) unknown) (unknown) (no (unknown) (unknown) Patient's age 37 (units (unknown) date) years or older as unknown) of estimated date of delivery: No (unknown) (no (unknown) (unknown) Patient: (units (unkno wn) date) Piper Arguelles unknown) MR#: [id number] (unknown) (no (unknown) (unknown) Watershed Coordinator: (units ( unknown) date) CHAR Garg unknown) (unknown) (no (unknown) (unknown) Personal history (units (unknown) date) of STD: other unknown) (PID (unknown bacterial agent) in 12/2021) (unknown) (no (unknown) (unknown) Personal history (units (unknown) date) of genital unknown) herpes: No (unknown) (no (unknown) (unknown) (units (unkn own) date) History unknown) (unknown) (no (unknown) (unknown) (units (unkno wn) date) Education unknown) (unknown) (no (unknown) (unknown) Initial (units (unknown) date) Assessment unknown) (unknown) (no (unknown) (unknown) Visit (units (unknown) date) unknown) (unknown) (no (unknown) (unknown) Primary Care (units (u nknown) date) Provider: CHAR Puentes unknown) Britany (unknown) (no (unknown) (unknown) Primary Ob (units (unk nown) date) Provider: unknown) Tyesha Brito (unknown) (no (unknown) (unknown) Prior (units (unkno wn) date) GBS-Infected unknown) child: No (unknown) (no (unknown) (unknown) Prostate cancer (units (unknown) date) unknown) (unknown) (no (unknown) (unknown) Providers (units (unkn own) date) unknown) (unknown) (no (unknown) (unknown) Rash or viral (units ( unknown) date) illness since unknown) last menstrual period: No (unknown) (no (unknown) (unknown) Reason For Visit (units (unknown) date) unknown) (unknown) (no (unknown) (unknown) Recent travel (units ( unknown) date) outside of unknown) country?: No (unknown) (no (unknown) (unknown) Recurrent UTI (units ( unknown) date) unknown) (unknown) (no (unknown) (unknown) 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 (unknown) (no (unknown) (unknown) Recurrent (units (unkn own) date) loss or unknown) a stillbirth: Yes (unknown) (no (unknown) (unknown) Reports (units (unkno wn) date) 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) and Reports Mental (unknown) (no (unknown) (unknown) Retardation/Auti (units (unknown) date) sm (multiple unknown) siblings w/ autism) (unknown) (no (unknown) (unknown) Safety (units (unkno wn) date) unknown) (unknown) (no (unknown) (unknown) Schizophrenia (units ( unknown) date) unknown) (unknown) (no (unknown) (unknown) Signed By: (units (unk nown) date) unknown) (unknown) (no (unknown) (unknown) Sister Anxiety (units (unknown) date) unknown) (unknown) (no (unknown) (unknown) Sister (units (unkno wn) date) Depression unknown) (unknown) (no (unknown) (unknown) Smoking Status: (units (unknown) date) Former smoker unknown) (former vape use, quit) (unknown) (no (unknown) (unknown) Social History (units (unknown) date) unknown) (unknown) (no (unknown) (unknown) Surgical History (units (unknown) date) (Updated 05/04/22 unknown) @ 08:56 by Autumn Teixeira RN) (unknown) (no (unknown) (unknown) Symptoms since (units (unknown) date) LMP: Reports unknown) amenorrhea, nausea, vomiting, fatigue, breast (unknown) (no (unknown) (unknown) Teratogen (units (unkn own) date) Exposures since unknown) LMP/Conception: Reports other (CT scan on 04/07/22) (unknown) (no (unknown) (unknown) This note may (units ( unknown) date) have been all or unknown) partially generated using voice recognition (unknown) (no (unknown) (unknown) Tobacco + (units (unkn own) date) Substance Use unknown) (unknown) (no (unknown) (unknown) Tobacco Status (units (unknown) date) unknown) (unknown) (no (unknown) (unknown) Type(s) of (units (unk nown) date) exercise: walking unknown) (unknown) (no (unknown) (unknown) Varicella/chicke (units (unknown) date) n pox status: unknown) immunized (unknown) (no (unknown) (unknown) Visit Reasons: (units (unknown) date) Telephone intake unknown) for [place] (unknown) (no (unknown) (unknown) WG (units (unkno wn) date) unknown) (unknown) (no (unknown) (unknown) Zika virus (units (unk nown) date) exposure: No unknown) (unknown) (no (unknown) (unknown) alcohol intake: (units (unknown) date) never unknown) (unknown) (no (unknown) (unknown) anyone in either (units (unknown) date) family with: unknown) (unknown) (no (unknown) (unknown) caffeine: Yes (units ( unknown) date) (occasionally, unknown) aware of 200mg limit) (unknown) (no (unknown) (unknown) carbon monox (units (u nknown) date) detector in home: unknown) Yes (unknown) (no (unknown) (unknown) coenzyme Q10 (Co (units (unknown) date) Q-10) 100 mg PO unknown) DAILY (unknown) (no (unknown) (unknown) coenzyme Q10 100 (units (unknown) date) mg capsule (Co unknown) Q-10) 100 mg PO DAILY 04/27/22 [History (unknown) (no (unknown) (unknown) current (units (unkno wn) date) occupational unknown) exposures/hazards : No (unknown) (no (unknown) (unknown) daily servings (units (unknown) date) fruits/ve-4 unknown) (unknown) (no (unknown) (unknown) do you feel safe (units (unknown) date) at home: Yes unknown) (unknown) (no (unknown) (unknown) duration: 15-30 (units (unknown) date) minutes/day unknown) (unknown) (no (unknown) (unknown) during the past (units (unknown) date) year weight has: unknown) other ([id number] lb) (unknown) (no (unknown) (unknown) education level: (units (unknown) date) high school unknown) (unknown) (no (unknown) (unknown) ferrous sulfate (units (unknown) date) 325 mg (65 mg unknown) iron) tablet 325 mg PO DAILY 04/27/22 [History (unknown) (no (unknown) (unknown) ferrous sulfate (units (unknown) date) 325 mg PO DAILY unknown) (unknown) (no (unknown) (unknown) fire (units (unkno wn) date) 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 unknown) home: Yes (unknown) (no (unknown) (unknown) firearms in (units (un known) date) home: Yes unknown) firearms unloaded and locked: Yes (unknown) (no (unknown) (unknown) folic acid 0.5 (units (unknown) date) mg PO DAILY unknown) (unknown) (no (unknown) (unknown) folic acid 1 mg (units (unknown) date) tablet 0.5 mg PO unknown) DAILY 04/27/22 [History Confirmed 05/04/22] (unknown) (no (unknown) (unknown) have occurred. (units (unknown) date) If there are any unknown) questions, please contact the Medical Records (unknown) (no (unknown) (unknown) household (units (unkn own) date) members: spouse unknown) (unknown) (no (unknown) (unknown) housing: (units (unkno wn) date) apartment unknown) (unknown) (no (unknown) (unknown) lives (units (unkno wn) date) independently: unknown) Yes (unknown) (no (unknown) (unknown) marital status: (units (unknown) date) unknown) (unknown) (no (unknown) (unknown) may occur. (units (unk nown) date) Occasional unknown) wrong-word or 'sound-alike' substitutions may have (unknown) (no (unknown) (unknown) number of (units (unkn own) date) children: 0 unknown) (unknown) (no (unknown) (unknown) occupational (units (u nknown) date) status: unknown) unemployed (unknown) (no (unknown) (unknown) occurred due to (units (unknown) date) the inherent unknown) limitations of voice recognition software. Please (unknown) (no (unknown) (unknown) pets and (units (unkno wn) date) animals: Yes (1 unknown) dog 1 cat; aware of toxo) (unknown) (no (unknown) (unknown) prenat.vits,jack, (units (unknown) date) [id number] 1 unknown) tab PO DAILY 04/27/22 [History Confirmed (unknown) (no (unknown) (unknown) prenat.vits,jack, (units (unknown) date) [id number] 1 unknown) tab PO DAILY (unknown) (no (unknown) (unknown) read the note (units ( unknown) date) carefully and unknown) recognize, using context, where these substitutions (unknown) (no (unknown) (unknown) screen) (units (unkno wn) date) unknown) (unknown) (no (unknown) (unknown) seatbelt use: (units ( unknown) date) always unknown) (unknown) (no (unknown) (unknown) second hand (units (un known) date) exposure: Yes unknown) (while visiting family (mom smokes)) (unknown) (no (unknown) (unknown) software. (units (unkn own) date) Although every unknown) effort is made to edit content, grinder hand errors (unknown) (no (unknown) (unknown) special mirella (units ( unknown) date) needs: No unknown) (unknown) (no (unknown) (unknown) substance use (units ( unknown) date) type: marijuana unknown) (quit when she learned she was ) (unknown) (no (unknown) (unknown) tenderness, (units (un known) date) urinary unknown) frequency, irritability, bloating and other (heartburn) (unknown) (no (unknown) (unknown) travel history: (units (unknown) date) recent (domestic unknown) only) (unknown) (no (unknown) (unknown) water heater (units (u nknown) date) temp set < 120 unknown) deg: No (Will call landlord to adjust ) (unknown) (no (unknown) (unknown) well-balanced (units ( unknown) date) diet: daily or unknown) most days (unknown) (no (unknown) (unknown) working smoke (units ( unknown) date) detector in home: unknown) Yes Result panel 18 (unknown) (no (unknown) (unknown) (no value) (units (unk nown) date) unknown) (unknown) (no (unknown) (unknown) Genetic (units (unkn own) date) Screening/Teratol unknown) ogy Counseling - Includes patient, baby's father, or (unknown) (no (unknown) (unknown) 10/26/21 6 (units (unk nown) date) spontaneous unknown) (unknown) (no (unknown) (unknown) 03 (units (unkno wn) date) unknown) (unknown) (no (unknown) (unknown) 10/27/20 5 (units (unk nown) date) spontaneous unknown) (unknown) (no (unknown) (unknown) [id number] (units (unkno wn) date) unknown) (unknown) (no (unknown) (unknown) 01/26/22 5 (units (unk nown) date) spontaneous unknown) (unknown) (no (unknown) (unknown) 05/04/22 (units (unkno wn) date) unknown) (unknown) (no (unknown) (unknown) 05/04/22] (units (unkn own) date) unknown) (unknown) (no (unknown) (unknown) 06/29/20 5 (units (unk nown) date) spontaneous unknown) (unknown) (no (unknown) (unknown) Abnormal lab (units (u nknown) date) values 1st unknown) trimester: discussed (unknown) (no (unknown) (unknown) Age/Sex: 21 / F (units (unknown) date) Date of Service: unknown) (unknown) (no (unknown) (unknown) Allergies (units (unkn own) date) unknown) (unknown) (no (unknown) (unknown) [place], [place] (units ( unknown) date) [id number] unknown) (unknown) (no (unknown) (unknown) Aneuploidy (units (unk nown) date) Screening unknown) Offered: Accepted (undecided, will probably get quad (unknown) (no (unknown) (unknown) Anticipated (units (un known) date) course of unknown) care: discussed (unknown) (no (unknown) (unknown) Anxiety (units (unkno wn) date) unknown) (unknown) (no (unknown) (unknown) Assessment and (units (unknown) date) Plan unknown) (unknown) (no (unknown) (unknown) Attending Dr: (units ( unknown) date) Tyesha Scales unknown) Daryl BEE (unknown) (no (unknown) (unknown) Autism (units (unkno wn) date) unknown) (unknown) (no (unknown) (unknown) Bipolar disorder (units (unknown) date) unknown) (unknown) (no (unknown) (unknown) (units (unkno wn) date) Plan/Preferences unknown) (unknown) (no (unknown) (unknown) Planning (units (unknown) date) unknown) (unknown) (no (unknown) (unknown) Breastfeed Preg (units (unknown) date) Comp Name unknown) (unknown) (no (unknown) (unknown) Brother Anxiety (units (unknown) date) unknown) (unknown) (no (unknown) (unknown) Childbirth (units (unk nown) date) Classes: unknown) discussed (unknown) (no (unknown) (unknown) Confirmed (units (unkn own) date) 05/04/22] unknown) (unknown) (no (unknown) (unknown) Current Estimate (units (unknown) date) 12/24/22 LMP unknown) (Certain) 6w 4d (unknown) (no (unknown) (unknown) Current (units (unkno wn) date) History unknown) (unknown) (no (unknown) (unknown) : 2000 (units (unknown) date) Acct:[id number] unknown) (unknown) (no (unknown) (unknown) Date of positive (units (unknown) date) home unknown) test: 04/10/22 (unknown) (no (unknown) (unknown) Del. Date (units (unkn own) date) GA/Weeks Labor unknown) Lgth Wt Sex Route Outcome Anesthesia Place (unknown) (no (unknown) (unknown) Delv (units (unkno wn) date) unknown) (unknown) (no (unknown) (unknown) Depression (units (unk nown) date) unknown) (unknown) (no (unknown) (unknown) Depression: (units (un known) date) discussed unknown) (unknown) (no (unknown) (unknown) Dept at (units (unkno wn) date) . unknown) (unknown) (no (unknown) (unknown) Diet and (units (unkno wn) date) Exercise unknown) (unknown) (no (unknown) (unknown) Documented By: (units (unknown) date) Tyesha Brito unknown) Loyda BEE 05/04/22 09 (unknown) (no (unknown) (unknown) Draft (units (unkno wn) date) unknown) (unknown) (no (unknown) (unknown) TIFFANIE Calculator (units (unknown) date) unknown) (unknown) (no (unknown) (unknown) Estimated (units (unkn own) date) Delivery Date unknown) Method Current (unknown) (no (unknown) (unknown) Family History (units (unknown) date) (Updated 05/04/22 unknown) @ 09:03 by Autumn Teixeira RN) (unknown) (no (unknown) (unknown) Father Diabetes (units (unknown) date) mellitus unknown) (unknown) (no (unknown) (unknown) Father of Baby: (units (unknown) date) same unknown) (unknown) (no (unknown) (unknown) [facility] ([facility] unknown) (unknown) (no (unknown) (unknown) First Trimester (units (unknown) date) Education unknown) Checklist (unknown) (no (unknown) (unknown) Genetic (units (unkno wn) date) Screening + unknown) Counseling (unknown) (no (unknown) (unknown) Genetic (units (unkno wn) date) Screening unknown) (unknown) (no (unknown) (unknown) Grandfather (units (un known) date) Diabetes mellitus unknown) (unknown) (no (unknown) (unknown) Grandfather (units (un known) date) Family unknown) estrangement (unknown) (no (unknown) (unknown) Grandmother (units (un known) date) Cancer unknown) (unknown) (no (unknown) (unknown) Grandmother (units (un known) date) Diabetes unknown) mellitus (unknown) (no (unknown) (unknown) 5 (units (unkn own) date) Multiple births 0 unknown) (unknown) (no (unknown) (unknown) H/O hand surgery (units (unknown) date) unknown) (unknown) (no (unknown) (unknown) HIV risk (units (unkno wn) date) evaluation: low unknown) risk (unknown) (no (unknown) (unknown) [facility] Center (units ( unknown) date) Education unknown) (unknown) (no (unknown) (unknown) Health center (units ( unknown) date) information: unknown) nature of practice discussed, personnel (unknown) (no (unknown) (unknown) Hepatitis C risk (units (unknown) date) evaluation: low unknown) risk (unknown) (no (unknown) (unknown) History of (units (unk nown) date) Hepatitis B: No unknown) (unknown) (no (unknown) (unknown) History of (units (unk nown) date) Hepatitis C: No unknown) (unknown) (no (unknown) (unknown) 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 (unknown) (no (unknown) (unknown) History of (units (unk nown) date) removal of skin unknown) mole (unknown) (no (unknown) (unknown) Hx # (units (u nknown) date) Pregnancies 0 unknown) Elective abortions 0 (unknown) (no (unknown) (unknown) Hx # Term (units (unkn own) date) Pregnancies 0 unknown) Ectopic pregnancies 0 (unknown) (no (unknown) (unknown) Infection (units (unkn own) date) History unknown) (unknown) (no (unknown) (unknown) Intake Clinical (units (unknown) date) Staff unknown) (unknown) (no (unknown) (unknown) Intake performed (units (unknown) date) by: unknown) Tasneem Teixeira (unknown) (no (unknown) (unknown) Intake (units (unkno wn) date) unknown) (unknown) (no (unknown) (unknown) Live with (units (unkn own) date) someone with TB unknown) or exposed to TB: No (unknown) (no (unknown) (unknown) Loc: [facility] (units (unkno wn) date) unknown) (unknown) (no (unknown) (unknown) Lung cancer (units (un known) date) unknown) (unknown) (no (unknown) (unknown) Marijuana use: (units (unknown) date) discussed unknown) (unknown) (no (unknown) (unknown) Marital status: (units (unknown) date) unknown) (unknown) (no (unknown) (unknown) Medical History (units (unknown) date) (Updated 05/04/22 unknown) @ 09:20 by Autumn Teixeira RN) (unknown) (no (unknown) (unknown) Medications (units (un known) date) unknown) (unknown) (no (unknown) (unknown) Medications: (units (u nknown) date) unknown) (unknown) (no (unknown) (unknown) Mother (units (unkno wn) date) Gestational unknown) diabetes (unknown) (no (unknown) (unknown) New (units (unkno wn) date) unknown) (unknown) (no (unknown) (unknown) No Known Drug (units ( unknown) date) Allergies Allergy unknown) (Verified 05/04/22 08:53) (unknown) (no (unknown) (unknown) Number of Living (units (unknown) date) Children 0 unknown) (unknown) (no (unknown) (unknown) Nutrition and (units ( unknown) date) weight gain unknown) counseling: special diet: discussed (unknown) (no (unknown) (unknown) OB Office Visit (units (unknown) date) unknown) (unknown) (no (unknown) (unknown) On control (units (unknown) date) at conception?: unknown) No (unknown) (no (unknown) (unknown) PFSH (units (unkno wn) date) unknown) (unknown) (no (unknown) (unknown) PID (acute (units (unk nown) date) pelvic unknown) inflammatory disease) (unknown) (no (unknown) (unknown) PTSD (units (unkno wn) date) (post-traumatic unknown) stress disorder) (unknown) (no (unknown) (unknown) Para 0 (units (unkno wn) date) Spontaneous unknown) abortions 4 (unknown) (no (unknown) (unknown) Partner history (units (unknown) date) of STD: denies hx unknown) (unknown) (no (unknown) (unknown) Partner history (units (unknown) date) of genital unknown) herpes: No (unknown) (no (unknown) (unknown) Partner: [place] (units (unknown) date) Sites unknown) (unknown) (no (unknown) (unknown) Past Pregnancies (units (unknown) date) unknown) (unknown) (no (unknown) (unknown) Patient's age 37 (units (unknown) date) years or older as unknown) of estimated date of delivery: No (unknown) (no (unknown) (unknown) Patient: (units (unkno wn) date) Piper Arguelles unknown) MR#: [id number] (unknown) (no (unknown) (unknown) Waters[facility] Coordinator: (units ( unknown) date) CHAR Garg unknown) (unknown) (no (unknown) (unknown) Personal history (units (unknown) date) of STD: other unknown) (PID (unknown bacterial agent) in 12/2021) (unknown) (no (unknown) (unknown) Personal history (units (unknown) date) of genital unknown) herpes: No (unknown) (no (unknown) (unknown) (units (unkn own) date) History unknown) (unknown) (no (unknown) (unknown) (units (unkno wn) date) Education unknown) (unknown) (no (unknown) (unknown) Initial (units (unknown) date) Assessment unknown) (unknown) (no (unknown) (unknown) (units (unkno wn) date) Testing: unknown) discussed (unknown) (no (unknown) (unknown) Visit (units (unknown) date) unknown) (unknown) (no (unknown) (unknown) (units (unkno wn) date) education packet: unknown) Child education/plan, symptoms, (unknown) (no (unknown) (unknown) Primary Care (units (u nknown) date) Provider: CHAR Puentes unknown) Britany (unknown) (no (unknown) (unknown) Primary Ob (units (unk nown) date) Provider: unknown) Tyesha Brito (unknown) (no (unknown) (unknown) Prior (units (unkno wn) date) GBS-Infected unknown) child: No (unknown) (no (unknown) (unknown) Prostate cancer (units (unknown) date) unknown) (unknown) (no (unknown) (unknown) Providers (units (unkn own) date) unknown) (unknown) (no (unknown) (unknown) Rash or viral (units ( unknown) date) illness since unknown) last menstrual period: No (unknown) (no (unknown) (unknown) Reason For Visit (units (unknown) date) unknown) (unknown) (no (unknown) (unknown) Recent travel (units ( unknown) date) outside of unknown) country?: No (unknown) (no (unknown) (unknown) Recurrent UTI (units ( unknown) date) unknown) (unknown) (no (unknown) (unknown) 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 (unknown) (no (unknown) (unknown) Recurrent (units (unkn own) date) loss or unknown) a stillbirth: Yes (unknown) (no (unknown) (unknown) Reports (units (unkno wn) date) 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) and Reports Mental (unknown) (no (unknown) (unknown) Retardation/Auti (units (unknown) date) sm (multiple unknown) siblings w/ autism) (unknown) (no (unknown) (unknown) Safety (units (unkno wn) date) unknown) (unknown) (no (unknown) (unknown) Schizophrenia (units ( unknown) date) unknown) (unknown) (no (unknown) (unknown) Signed By: (units (unk nown) date) unknown) (unknown) (no (unknown) (unknown) Sister Anxiety (units (unknown) date) unknown) (unknown) (no (unknown) (unknown) Sister (units (unkno wn) date) Depression unknown) (unknown) (no (unknown) (unknown) Smoking Status: (units (unknown) date) Former smoker unknown) (former vape use, quit) (unknown) (no (unknown) (unknown) Social History (units (unknown) date) unknown) (unknown) (no (unknown) (unknown) Surgical History (units (unknown) date) (Updated 05/04/22 unknown) @ 08:56 by Autumn Teixeira RN) (unknown) (no (unknown) (unknown) Symptoms since (units (unknown) date) LMP: Reports unknown) amenorrhea, nausea, vomiting, fatigue, breast (unknown) (no (unknown) (unknown) Teratogen (units (unkn own) date) Exposures since unknown) LMP/Conception: Reports other (CT scan on 04/07/22) (unknown) (no (unknown) (unknown) This note may (units ( unknown) date) have been all or unknown) partially generated using voice recognition (unknown) (no (unknown) (unknown) Tobacco + (units (unkn own) date) Substance Use unknown) (unknown) (no (unknown) (unknown) Tobacco Status (units (unknown) date) unknown) (unknown) (no (unknown) (unknown) Type(s) of (units (unk nown) date) exercise: walking unknown) (unknown) (no (unknown) (unknown) Varicella/chicke (units (unknown) date) n pox status: unknown) immunized (unknown) (no (unknown) (unknown) Visit Reasons: (units (unknown) date) Telephone intake unknown) for [place] (unknown) (no (unknown) (unknown) Vitamins and (units (u nknown) date) iron, Diet and unknown) weight gain, Exercise and activity, (unknown) (no (unknown) (unknown) WG (units (unkno wn) date) unknown) (unknown) (no (unknown) (unknown) Zika virus (units (unk nown) date) exposure: No unknown) (unknown) (no (unknown) (unknown) alcohol intake: (units (unknown) date) never unknown) (unknown) (no (unknown) (unknown) anyone in either (units (unknown) date) family with: unknown) (unknown) (no (unknown) (unknown) caffeine: Yes (units ( unknown) date) (occasionally, unknown) aware of 200mg limit) (unknown) (no (unknown) (unknown) carbon monox (units (u nknown) date) detector in home: unknown) Yes (unknown) (no (unknown) (unknown) coenzyme Q10 (Co (units (unknown) date) Q-10) 100 mg PO unknown) DAILY (unknown) (no (unknown) (unknown) coenzyme Q10 100 (units (unknown) date) mg capsule (Co unknown) Q-10) 100 mg PO DAILY 04/27/22 [History (unknown) (no (unknown) (unknown) current (units (unkno wn) date) occupational unknown) exposures/hazards : No (unknown) (no (unknown) (unknown) daily servings (units (unknown) date) fruits/ve-4 unknown) (unknown) (no (unknown) (unknown) described, visit (units (unknown) date) schedule unknown) reviewed, ultrasounds policy reviewed, coverage 24 (unknown) (no (unknown) (unknown) do you feel safe (units (unknown) date) at home: Yes unknown) (unknown) (no (unknown) (unknown) duration: 15-30 (units (unknown) date) minutes/day unknown) (unknown) (no (unknown) (unknown) during the past (units (unknown) date) year weight has: unknown) other ([id number] lb) (unknown) (no (unknown) (unknown) education level: (units (unknown) date) high school unknown) (unknown) (no (unknown) (unknown) ferrous sulfate (units (unknown) date) 325 mg (65 mg unknown) iron) tablet 325 mg PO DAILY 04/27/22 [History (unknown) (no (unknown) (unknown) ferrous sulfate (units (unknown) date) 325 mg PO DAILY unknown) (unknown) (no (unknown) (unknown) fire (units (unkno wn) date) 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 unknown) home: Yes (unknown) (no (unknown) (unknown) firearms in (units (un known) date) home: Yes unknown) firearms unloaded and locked: Yes (unknown) (no (unknown) (unknown) folic acid 0.5 (units (unknown) date) mg PO DAILY unknown) (unknown) (no (unknown) (unknown) folic acid 1 mg (units (unknown) date) tablet 0.5 mg PO unknown) DAILY 04/27/22 [History Confirmed 05/04/22] (unknown) (no (unknown) (unknown) have occurred. (units (unknown) date) If there are any unknown) questions, please contact the Medical Records (unknown) (no (unknown) (unknown) hours a day and (units (unknown) date) participation of unknown) father in care and office visits (unknown) (no (unknown) (unknown) household (units (unkn own) date) members: spouse unknown) (unknown) (no (unknown) (unknown) housing: (units (unkno wn) date) apartment unknown) (unknown) (no (unknown) (unknown) lives (units (unkno wn) date) independently: unknown) Yes (unknown) (no (unknown) (unknown) marital status: (units (unknown) date) unknown) (unknown) (no (unknown) (unknown) may occur. (units (unk nown) date) Occasional unknown) wrong-word or 'sound-alike' substitutions may have (unknown) (no (unknown) (unknown) number of (units (unkn own) date) children: 0 unknown) (unknown) (no (unknown) (unknown) occupational (units (u nknown) date) status: unknown) unemployed (unknown) (no (unknown) (unknown) occurred due to (units (unknown) date) the inherent unknown) limitations of voice recognition software. Please (unknown) (no (unknown) (unknown) pets and (units (unkno wn) date) animals: Yes (1 unknown) dog 1 cat; aware of toxo) (unknown) (no (unknown) (unknown) prenat.vits,jack, (units (unknown) date) [id number] 1 unknown) tab PO DAILY 04/27/22 [History Confirmed (unknown) (no (unknown) (unknown) prenat.vits,jack, (units (unknown) date) [id number] 1 unknown) tab PO DAILY (unknown) (no (unknown) (unknown) read the note (units ( unknown) date) carefully and unknown) recognize, using context, where these substitutions (unknown) (no (unknown) (unknown) screen) (units (unkno wn) date) unknown) (unknown) (no (unknown) (unknown) seatbelt use: (units ( unknown) date) always unknown) (unknown) (no (unknown) (unknown) second hand (units (un known) date) exposure: Yes unknown) (while visiting family (mom smokes)) (unknown) (no (unknown) (unknown) software. (units (unkn own) date) Although every unknown) effort is made to edit content, grinder hand errors (unknown) (no (unknown) (unknown) special mirella (units ( unknown) date) needs: No unknown) (unknown) (no (unknown) (unknown) substance use (units ( unknown) date) type: marijuana unknown) (quit when she learned she was ) (unknown) (no (unknown) (unknown) tenderness, (units (un known) date) urinary unknown) frequency, irritability, bloating and other (heartburn) (unknown) (no (unknown) (unknown) travel history: (units (unknown) date) recent (domestic unknown) only) (unknown) (no (unknown) (unknown) water heater (units (u nknown) date) temp set < 120 unknown) deg: No (Will call landlord to adjust ) (unknown) (no (unknown) (unknown) well-balanced (units ( unknown) date) diet: daily or unknown) most days (unknown) (no (unknown) (unknown) work/environment (units (unknown) date) al/hazards, X-ray unknown) exposure, Sauna/hot tub use and Dental care (unknown) (no (unknown) (unknown) working smoke (units ( unknown) date) detector in home: unknown) Yes Result panel 19 (unknown) (no (unknown) (unknown) (no value) (units (unk nown) date) unknown) (unknown) (no (unknown) (unknown) Genetic (units (unkn own) date) Screening/Teratol unknown) ogy Counseling - Includes patient, baby's father, or (unknown) (no (unknown) (unknown) 10/26/21 6 (units (unk nown) date) spontaneous unknown) (unknown) (no (unknown) (unknown) 03 (units (unkno wn) date) unknown) (unknown) (no (unknown) (unknown) 10/27/20 5 (units (unk nown) date) spontaneous unknown) (unknown) (no (unknown) (unknown) [id number] (units (unkno wn) date) unknown) (unknown) (no (unknown) (unknown) 01/26/22 5 (units (unk nown) date) spontaneous unknown) (unknown) (no (unknown) (unknown) 05/04/22 (units (unkno wn) date) unknown) (unknown) (no (unknown) (unknown) 05/04/22] (units (unkn own) date) unknown) (unknown) (no (unknown) (unknown) 06/29/20 5 (units (unk nown) date) spontaneous unknown) (unknown) (no (unknown) (unknown) Abnormal lab (units (u nknown) date) values 1st unknown) trimester: discussed (unknown) (no (unknown) (unknown) Age/Sex: 21 / F (units (unknown) date) Date of Service: unknown) (unknown) (no (unknown) (unknown) Allergies (units (unkn own) date) unknown) (unknown) (no (unknown) (unknown) [place], [place] (units ( unknown) date) [id number] unknown) (unknown) (no (unknown) (unknown) Aneuploidy (units (unk nown) date) Screening unknown) Offered: Accepted (undecided, will probably get quad (unknown) (no (unknown) (unknown) Anticipated (units (un known) date) course of unknown) care: discussed (unknown) (no (unknown) (unknown) Anxiety (units (unkno wn) date) unknown) (unknown) (no (unknown) (unknown) Assessment and (units (unknown) date) Plan unknown) (unknown) (no (unknown) (unknown) Attending Dr: (units ( unknown) date) Tyesha Scales unknown) Daryl BEE (unknown) (no (unknown) (unknown) Autism (units (unkno wn) date) unknown) (unknown) (no (unknown) (unknown) Bipolar disorder (units (unknown) date) unknown) (unknown) (no (unknown) (unknown) (units (unkno wn) date) Plan/Preferences unknown) (unknown) (no (unknown) (unknown) Planning (units (unknown) date) unknown) (unknown) (no (unknown) (unknown) Breastfeed Preg (units (unknown) date) Comp Name unknown) (unknown) (no (unknown) (unknown) Brother Anxiety (units (unknown) date) unknown) (unknown) (no (unknown) (unknown) Childbirth (units (unk nown) date) Classes: unknown) discussed (unknown) (no (unknown) (unknown) Confirmed (units (unkn own) date) 05/04/22] unknown) (unknown) (no (unknown) (unknown) Current Estimate (units (unknown) date) 12/24/22 LMP unknown) (Certain) 6w 4d (unknown) (no (unknown) (unknown) Current (units (unkno wn) date) History unknown) (unknown) (no (unknown) (unknown) : 2000 (units (unknown) date) Acct:[id number] unknown) (unknown) (no (unknown) (unknown) Date of positive (units (unknown) date) home unknown) test: 04/10/22 (unknown) (no (unknown) (unknown) Del. Date (units (unkn own) date) GA/Weeks Labor unknown) Lgth Wt Sex Route Outcome Anesthesia Place (unknown) (no (unknown) (unknown) Delv (units (unkno wn) date) unknown) (unknown) (no (unknown) (unknown) Depression (units (unk nown) date) unknown) (unknown) (no (unknown) (unknown) Depression: (units (un known) date) discussed unknown) (unknown) (no (unknown) (unknown) Dept at (units (unkno wn) date) . unknown) (unknown) (no (unknown) (unknown) Diet and (units (unkno wn) date) Exercise unknown) (unknown) (no (unknown) (unknown) Documented By: (units (unknown) date) Tyesha Brito unknown) Loyda BEE 05/04/22 09 (unknown) (no (unknown) (unknown) Draft (units (unkno wn) date) unknown) (unknown) (no (unknown) (unknown) TIFFANIE Calculator (units (unknown) date) unknown) (unknown) (no (unknown) (unknown) Estimated (units (unkn own) date) Delivery Date unknown) Method Current (unknown) (no (unknown) (unknown) Exercise and (units (u nknown) date) activity, unknown) work/environmenta l/hazards, Sexual activity, X-ray (unknown) (no (unknown) (unknown) Family History (units (unknown) date) (Updated 05/04/22 unknown) @ 09:03 by Autumn Teixeira RN) (unknown) (no (unknown) (unknown) Father Diabetes (units (unknown) date) mellitus unknown) (unknown) (no (unknown) (unknown) Father of Baby: (units (unknown) date) same unknown) (unknown) (no (unknown) (unknown) [facility] ([facility] unknown) (unknown) (no (unknown) (unknown) First Trimester (units (unknown) date) Education unknown) Checklist (unknown) (no (unknown) (unknown) Genetic (units (unkno wn) date) Screening + unknown) Counseling (unknown) (no (unknown) (unknown) Genetic (units (unkno wn) date) Screening unknown) (unknown) (no (unknown) (unknown) Grandfather (units (un known) date) Diabetes mellitus unknown) (unknown) (no (unknown) (unknown) Grandfather (units (un known) date) Family unknown) estrangement (unknown) (no (unknown) (unknown) Grandmother (units (un known) date) Cancer unknown) (unknown) (no (unknown) (unknown) Grandmother (units (un known) date) Diabetes unknown) mellitus (unknown) (no (unknown) (unknown) 5 (units (unkn own) date) Multiple births 0 unknown) (unknown) (no (unknown) (unknown) H/O hand surgery (units (unknown) date) unknown) (unknown) (no (unknown) (unknown) HIV risk (units (unkno wn) date) evaluation: low unknown) risk (unknown) (no (unknown) (unknown) Health Center (units ( unknown) date) Education unknown) (unknown) (no (unknown) (unknown) Health center (units ( unknown) date) information: unknown) nature of practice discussed, personnel (unknown) (no (unknown) (unknown) Hepatitis C risk (units (unknown) date) evaluation: low unknown) risk (unknown) (no (unknown) (unknown) History of (units (unk nown) date) Hepatitis B: No unknown) (unknown) (no (unknown) (unknown) History of (units (unk nown) date) Hepatitis C: No unknown) (unknown) (no (unknown) (unknown) 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 (unknown) (no (unknown) (unknown) History of (units (unk nown) date) removal of skin unknown) mole (unknown) (no (unknown) (unknown) Hx # (units (u nknown) date) Pregnancies 0 unknown) Elective abortions 0 (unknown) (no (unknown) (unknown) Hx # Term (units (unkn own) date) Pregnancies 0 unknown) Ectopic pregnancies 0 (unknown) (no (unknown) (unknown) Infection (units (unkn own) date) History unknown) (unknown) (no (unknown) (unknown) Intake Clinical (units (unknown) date) Staff unknown) (unknown) (no (unknown) (unknown) Intake performed (units (unknown) date) by: unknown) Tasneem Teixeira (unknown) (no (unknown) (unknown) Intake (units (unkno wn) date) unknown) (unknown) (no (unknown) (unknown) Live with (units (unkn own) date) someone with TB unknown) or exposed to TB: No (unknown) (no (unknown) (unknown) Loc: [facility] (units (unkno wn) date) unknown) (unknown) (no (unknown) (unknown) Lung cancer (units (un known) date) unknown) (unknown) (no (unknown) (unknown) Marijuana use: (units (unknown) date) discussed unknown) (unknown) (no (unknown) (unknown) Marital status: (units (unknown) date) unknown) (unknown) (no (unknown) (unknown) Medical History (units (unknown) date) (Updated 05/04/22 unknown) @ 09:20 by Autumn Teixeira RN) (unknown) (no (unknown) (unknown) Medications (units (un known) date) unknown) (unknown) (no (unknown) (unknown) Medications: (units (u nknown) date) unknown) (unknown) (no (unknown) (unknown) Mother (units (unkno wn) date) Gestational unknown) diabetes (unknown) (no (unknown) (unknown) New (units (unkno wn) date) unknown) (unknown) (no (unknown) (unknown) No Known Drug (units ( unknown) date) Allergies Allergy unknown) (Verified 05/04/22 08:53) (unknown) (no (unknown) (unknown) Number of Living (units (unknown) date) Children 0 unknown) (unknown) (no (unknown) (unknown) Nutrition and (units ( unknown) date) weight gain unknown) counseling: special diet: discussed (unknown) (no (unknown) (unknown) OB Office Visit (units (unknown) date) unknown) (unknown) (no (unknown) (unknown) On control (units (unknown) date) at conception?: unknown) No (unknown) (no (unknown) (unknown) PFSH (units (unkno wn) date) unknown) (unknown) (no (unknown) (unknown) PID (acute (units (unk nown) date) pelvic unknown) inflammatory disease) (unknown) (no (unknown) (unknown) PTSD (units (unkno wn) date) (post-traumatic unknown) stress disorder) (unknown) (no (unknown) (unknown) Para 0 (units (unkno wn) date) Spontaneous unknown) abortions 4 (unknown) (no (unknown) (unknown) Partner history (units (unknown) date) of STD: denies hx unknown) (unknown) (no (unknown) (unknown) Partner history (units (unknown) date) of genital unknown) herpes: No (unknown) (no (unknown) (unknown) Partner: [place] (units (unknown) date) Sites unknown) (unknown) (no (unknown) (unknown) Past Pregnancies (units (unknown) date) unknown) (unknown) (no (unknown) (unknown) Patient's age 37 (units (unknown) date) years or older as unknown) of estimated date of delivery: No (unknown) (no (unknown) (unknown) Patient: (units (unkno wn) date) [facility] N unknown) MR#: [id number] (unknown) (no (unknown) (unknown) Watershed Coordinator: (units ( unknown) date) CHAR Clifton unknown) (unknown) (no (unknown) (unknown) Personal history (units (unknown) date) of STD: other unknown) (PID (unknown bacterial agent) in 12/2021) (unknown) (no (unknown) (unknown) Personal history (units (unknown) date) of genital unknown) herpes: No (unknown) (no (unknown) (unknown) (units (unkn own) date) History unknown) (unknown) (no (unknown) (unknown) (units (unkno wn) date) Education unknown) (unknown) (no (unknown) (unknown) Initial (units (unknown) date) Assessment unknown) (unknown) (no (unknown) (unknown) (units (unkno wn) date) Testing: unknown) discussed (unknown) (no (unknown) (unknown) Visit (units (unknown) date) unknown) (unknown) (no (unknown) (unknown) (units (unkno wn) date) education packet: unknown) Child education/plan, symptoms, (unknown) (no (unknown) (unknown) Primary Care (units (u nknown) date) Provider: CHAR Puentes unknown) [place] (unknown) (no (unknown) (unknown) Primary Ob (units (unk nown) date) Provider: unknown) Tyesha Brito (unknown) (no (unknown) (unknown) Prior (units (unkno wn) date) GBS-Infected unknown) child: No (unknown) (no (unknown) (unknown) Prostate cancer (units (unknown) date) unknown) (unknown) (no (unknown) (unknown) Providers (units (unkn own) date) unknown) (unknown) (no (unknown) (unknown) Rash or viral (units ( unknown) date) illness since unknown) last menstrual period: No (unknown) (no (unknown) (unknown) Reason For Visit (units (unknown) date) unknown) (unknown) (no (unknown) (unknown) Recent travel (units ( unknown) date) outside of unknown) country?: No (unknown) (no (unknown) (unknown) Recurrent UTI (units ( unknown) date) unknown) (unknown) (no (unknown) (unknown) 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 (unknown) (no (unknown) (unknown) Recurrent (units (unkn own) date) loss or unknown) a stillbirth: Yes (unknown) (no (unknown) (unknown) Reports (units (unkno wn) date) 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) and Reports Mental (unknown) (no (unknown) (unknown) Retardation/Auti (units (unknown) date) sm (multiple unknown) siblings w/ autism) (unknown) (no (unknown) (unknown) Safety (units (unkno wn) date) unknown) (unknown) (no (unknown) (unknown) Schizophrenia (units ( unknown) date) unknown) (unknown) (no (unknown) (unknown) Signed By: (units (unk nown) date) unknown) (unknown) (no (unknown) (unknown) Sister Anxiety (units (unknown) date) unknown) (unknown) (no (unknown) (unknown) Sister (units (unkno wn) date) Depression unknown) (unknown) (no (unknown) (unknown) Smoking Status: (units (unknown) date) Former smoker unknown) (former vape use, quit) (unknown) (no (unknown) (unknown) Social History (units (unknown) date) unknown) (unknown) (no (unknown) (unknown) Surgical History (units (unknown) date) (Updated 05/04/22 unknown) @ 08:56 by Autumn Teixeira RN) (unknown) (no (unknown) (unknown) Symptoms since (units (unknown) date) LMP: Reports unknown) amenorrhea, nausea, vomiting, fatigue, breast (unknown) (no (unknown) (unknown) Teratogen (units (unkn own) date) Exposures since unknown) LMP/Conception: Reports other (CT scan on 04/07/22) (unknown) (no (unknown) (unknown) This note may (units ( unknown) date) have been all or unknown) partially generated using voice recognition (unknown) (no (unknown) (unknown) Tobacco + (units (unkn own) date) Substance Use unknown) (unknown) (no (unknown) (unknown) Tobacco Status (units (unknown) date) unknown) (unknown) (no (unknown) (unknown) Type(s) of (units (unk nown) date) exercise: walking unknown) (unknown) (no (unknown) (unknown) Varicella/chicke (units (unknown) date) n pox status: unknown) immunized (unknown) (no (unknown) (unknown) Visit Reasons: (units (unknown) date) Telephone intake unknown) for Hendrzak (unknown) (no (unknown) (unknown) Vitamins and (units (u nknown) date) iron, Diet and unknown) weight gain, Fish and mercury intake, Caffeine use, (unknown) (no (unknown) (unknown) WG (units (unkno wn) date) unknown) (unknown) (no (unknown) (unknown) Zika virus (units (unk nown) date) exposure: No unknown) (unknown) (no (unknown) (unknown) alcohol intake: (units (unknown) date) never unknown) (unknown) (no (unknown) (unknown) anyone in either (units (unknown) date) family with: unknown) (unknown) (no (unknown) (unknown) caffeine: Yes (units ( unknown) date) (occasionally, unknown) aware of 200mg limit) (unknown) (no (unknown) (unknown) carbon monox (units (u nknown) date) detector in home: unknown) Yes (unknown) (no (unknown) (unknown) coenzyme Q10 (Co (units (unknown) date) Q-10) 100 mg PO unknown) DAILY (unknown) (no (unknown) (unknown) coenzyme Q10 100 (units (unknown) date) mg capsule (Co unknown) Q-10) 100 mg PO DAILY 04/27/22 [History (unknown) (no (unknown) (unknown) current (units (unkno wn) date) occupational unknown) exposures/hazards : No (unknown) (no (unknown) (unknown) daily servings (units (unknown) date) fruits/ve-4 unknown) (unknown) (no (unknown) (unknown) described, visit (units (unknown) date) schedule unknown) reviewed, ultrasounds policy reviewed, coverage 24 (unknown) (no (unknown) (unknown) do you feel safe (units (unknown) date) at home: Yes unknown) (unknown) (no (unknown) (unknown) duration: 15-30 (units (unknown) date) minutes/day unknown) (unknown) (no (unknown) (unknown) during the past (units (unknown) date) year weight has: unknown) other ([id number] lb) (unknown) (no (unknown) (unknown) education level: (units (unknown) date) high school unknown) (unknown) (no (unknown) (unknown) exposure, (units (unkn own) date) Sauna/hot tub use unknown) and Dental care (unknown) (no (unknown) (unknown) ferrous sulfate (units (unknown) date) 325 mg (65 mg unknown) iron) tablet 325 mg PO DAILY 04/27/22 [History (unknown) (no (unknown) (unknown) ferrous sulfate (units (unknown) date) 325 mg PO DAILY unknown) (unknown) (no (unknown) (unknown) fire (units (unkno wn) date) 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 unknown) home: Yes (unknown) (no (unknown) (unknown) firearms in (units (un known) date) home: Yes unknown) firearms unloaded and locked: Yes (unknown) (no (unknown) (unknown) folic acid 0.5 (units (unknown) date) mg PO DAILY unknown) (unknown) (no (unknown) (unknown) folic acid 1 mg (units (unknown) date) tablet 0.5 mg PO unknown) DAILY 04/27/22 [History Confirmed 05/04/22] (unknown) (no (unknown) (unknown) have occurred. (units (unknown) date) If there are any unknown) questions, please contact the Medical Records (unknown) (no (unknown) (unknown) hours a day and (units (unknown) date) participation of unknown) father in care and office visits (unknown) (no (unknown) (unknown) household (units (unkn own) date) members: spouse unknown) (unknown) (no (unknown) (unknown) housing: (units (unkno wn) date) apartment unknown) (unknown) (no (unknown) (unknown) lives (units (unkno wn) date) independently: unknown) Yes (unknown) (no (unknown) (unknown) marital status: (units (unknown) date) unknown) (unknown) (no (unknown) (unknown) may occur. (units (unk nown) date) Occasional unknown) wrong-word or 'sound-alike' substitutions may have (unknown) (no (unknown) (unknown) number of (units (unkn own) date) children: 0 unknown) (unknown) (no (unknown) (unknown) occupational (units (u nknown) date) status: unknown) unemployed (unknown) (no (unknown) (unknown) occurred due to (units (unknown) date) the inherent unknown) limitations of voice recognition software. Please (unknown) (no (unknown) (unknown) pets and (units (unkno wn) date) animals: Yes (1 unknown) dog 1 cat; aware of toxo) (unknown) (no (unknown) (unknown) prenat.vits,jack, (units (unknown) date) [id number] 1 unknown) tab PO DAILY 04/27/22 [History Confirmed (unknown) (no (unknown) (unknown) prenat.vits,jack, (units (unknown) date) [id number] 1 unknown) tab PO DAILY (unknown) (no (unknown) (unknown) read the note (units ( unknown) date) carefully and unknown) recognize, using context, where these substitutions (unknown) (no (unknown) (unknown) screen) (units (unkno wn) date) unknown) (unknown) (no (unknown) (unknown) seatbelt use: (units ( unknown) date) always unknown) (unknown) (no (unknown) (unknown) second hand (units (un known) date) exposure: Yes unknown) (while visiting family (mom smokes)) (unknown) (no (unknown) (unknown) software. (units (unkn own) date) Although every unknown) effort is made to edit content, grinder hand errors (unknown) (no (unknown) (unknown) special mirella (units ( unknown) date) needs: No unknown) (unknown) (no (unknown) (unknown) substance use (units ( unknown) date) type: marijuana unknown) (quit when she learned she was ) (unknown) (no (unknown) (unknown) tenderness, (units (un known) date) urinary unknown) frequency, irritability, bloating and other (heartburn) (unknown) (no (unknown) (unknown) travel history: (units (unknown) date) recent (domestic unknown) only) (unknown) (no (unknown) (unknown) water heater (units (u nknown) date) temp set < 120 unknown) deg: No (Will call landlord to adjust ) (unknown) (no (unknown) (unknown) well-balanced (units ( unknown) date) diet: daily or unknown) most days (unknown) (no (unknown) (unknown) working smoke (units ( unknown) date) detector in home: unknown) Yes Result panel 20 (unknown) (no (unknown) (unknown) (no value) (units (unk nown) date) unknown) (unknown) (no (unknown) (unknown) Genetic (units (unkn own) date) Screening/Teratol unknown) ogy Counseling - Includes patient, baby's father, or (unknown) (no (unknown) (unknown) -?-?-?-?-?-?-?-? (units (unknown) date) -?-?-?-? unknown) (unknown) (no (unknown) (unknown) 10/26/21 6 (units (unk nown) date) spontaneous unknown) (unknown) (no (unknown) (unknown) 03 (units (unkno wn) date) unknown) (unknown) (no (unknown) (unknown) 10/27/20 5 (units (unk nown) date) spontaneous unknown) (unknown) (no (unknown) (unknown) [id number] (units (unkno wn) date) unknown) (unknown) (no (unknown) (unknown) 01/26/22 5 (units (unk nown) date) spontaneous unknown) (unknown) (no (unknown) (unknown) 05/04/22 (units (unkno wn) date) unknown) (unknown) (no (unknown) (unknown) 05/04/22] (units (unkn own) date) unknown) (unknown) (no (unknown) (unknown) 06/29/20 5 (units (unk nown) date) spontaneous unknown) (unknown) (no (unknown) (unknown) 6w 4d (units (unkno wn) date) unknown) (unknown) (no (unknown) (unknown) Abnormal lab (units (u nknown) date) values 1st unknown) trimester: discussed (unknown) (no (unknown) (unknown) Age/Sex: 21 / F (units (unknown) date) Date of Service: unknown) (unknown) (no (unknown) (unknown) Allergies (units (unkn own) date) unknown) (unknown) (no (unknown) (unknown) [place], [place] (units ( unknown) date) [id number] unknown) (unknown) (no (unknown) (unknown) Aneuploidy (units (unk nown) date) Screening unknown) Offered: Accepted (undecided, will probably get quad (unknown) (no (unknown) (unknown) Anticipated (units (un known) date) course of unknown) care: discussed (unknown) (no (unknown) (unknown) Anxiety (units (unkno wn) date) unknown) (unknown) (no (unknown) (unknown) Assessment and (units (unknown) date) Plan unknown) (unknown) (no (unknown) (unknown) Attending Dr: (units ( unknown) date) Tyesha Scales unknown) Daryl BEE (unknown) (no (unknown) (unknown) Autism (units (unkno wn) date) unknown) (unknown) (no (unknown) (unknown) Bipolar disorder (units (unknown) date) unknown) (unknown) (no (unknown) (unknown) (units (unkno wn) date) Plan/Preferences unknown) (unknown) (no (unknown) (unknown) Planning (units (unknown) date) unknown) (unknown) (no (unknown) (unknown) Blood (units (unkno wn) date) transfusions?: unknown) yes (Never had but would accept) (unknown) (no (unknown) (unknown) Breastfeed Preg (units (unknown) date) Comp Name unknown) (unknown) (no (unknown) (unknown) Brother Anxiety (units (unknown) date) unknown) (unknown) (no (unknown) (unknown) Caffeine use, (units ( unknown) date) Exercise and unknown) activity, work/environmenta l/hazards, Sexual (unknown) (no (unknown) (unknown) Childbirth (units (unk nown) date) Classes: unknown) discussed (unknown) (no (unknown) (unknown) Confirmed (units (unkn own) date) 05/04/22] unknown) (unknown) (no (unknown) (unknown) Current Estimate (units (unknown) date) 12/24/22 LMP unknown) (Certain) 6w 4d (unknown) (no (unknown) (unknown) Current (units (unkno wn) date) History unknown) (unknown) (no (unknown) (unknown) : 2000 (units (unknown) date) Acct:[id number] unknown) (unknown) (no (unknown) (unknown) Date of positive (units (unknown) date) home unknown) test: 04/10/22 (unknown) (no (unknown) (unknown) Date (units (unkno wn) date) unknown) (unknown) (no (unknown) (unknown) Del. Date (units (unkn own) date) GA/Weeks Labor unknown) Lgth Wt Sex Route Outcome Anesthesia Place (unknown) (no (unknown) (unknown) Delv (units (unkno wn) date) unknown) (unknown) (no (unknown) (unknown) Depression (units (unk nown) date) unknown) (unknown) (no (unknown) (unknown) Depression: (units (un known) date) discussed unknown) (unknown) (no (unknown) (unknown) Dept at (units (unkno wn) date) . unknown) (unknown) (no (unknown) (unknown) Diet and (units (unkno wn) date) Exercise unknown) (unknown) (no (unknown) (unknown) Documented By: (units (unknown) date) Tyesha Brito unknown) Loyda BEE 05/04/22 09 (unknown) (no (unknown) (unknown) Draft (units (unkno wn) date) unknown) (unknown) (no (unknown) (unknown) TIFFANIE Calculator (units (unknown) date) unknown) (unknown) (no (unknown) (unknown) EGA Weight BP (units ( unknown) date) UGlucose unknown) (unknown) (no (unknown) (unknown) Estimated (units (unkn own) date) Delivery Date unknown) Method Current (unknown) (no (unknown) (unknown) Family History (units (unknown) date) (Updated 05/04/22 unknown) @ 09:03 by Autumn Teixeira RN) (unknown) (no (unknown) (unknown) Father Diabetes (units (unknown) date) mellitus unknown) (unknown) (no (unknown) (unknown) Father of Baby: (units (unknown) date) same unknown) (unknown) (no (unknown) (unknown) [facility] unknown) (unknown) (no (unknown) (unknown) First Trimester (units (unknown) date) Education unknown) Checklist (unknown) (no (unknown) (unknown) Genetic (units (unkno wn) date) Screening + unknown) Counseling (unknown) (no (unknown) (unknown) Genetic (units (unkno wn) date) Screening unknown) (unknown) (no (unknown) (unknown) Grandfather (units (un known) date) Diabetes mellitus unknown) (unknown) (no (unknown) (unknown) Grandfather (units (un known) date) Family unknown) estrangement (unknown) (no (unknown) (unknown) Grandmother (units (un known) date) Cancer unknown) (unknown) (no (unknown) (unknown) Grandmother (units (un known) date) Diabetes unknown) mellitus (unknown) (no (unknown) (unknown) 5 (units (unkn own) date) Multiple births 0 unknown) (unknown) (no (unknown) (unknown) H/O hand surgery (units (unknown) date) unknown) (unknown) (no (unknown) (unknown) HIV risk (units (unkno wn) date) evaluation: low unknown) risk (unknown) (no (unknown) (unknown) Health Center (units ( unknown) date) Education unknown) (unknown) (no (unknown) (unknown) Health center (units ( unknown) date) information: unknown) nature of practice discussed, personnel (unknown) (no (unknown) (unknown) Hepatitis C risk (units (unknown) date) evaluation: low unknown) risk (unknown) (no (unknown) (unknown) History of (units (unk nown) date) Hepatitis B: No unknown) (unknown) (no (unknown) (unknown) History of (units (unk nown) date) Hepatitis C: No unknown) (unknown) (no (unknown) (unknown) 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 (unknown) (no (unknown) (unknown) History of (units (unk nown) date) removal of skin unknown) mole (unknown) (no (unknown) (unknown) Hospital: [facility] (units (u nknown) date) unknown) (unknown) (no (unknown) (unknown) Hx # (units (u nknown) date) Pregnancies 0 unknown) Elective abortions 0 (unknown) (no (unknown) (unknown) Hx # Term (units (unkn own) date) Pregnancies 0 unknown) Ectopic pregnancies 0 (unknown) (no (unknown) (unknown) Infant will be (units (unknown) date) adopted?: no unknown) (unknown) (no (unknown) (unknown) Infection (units (unkn own) date) History unknown) (unknown) (no (unknown) (unknown) Infectious (units (unk nown) date) Disease Education unknown) (unknown) (no (unknown) (unknown) Infectious (units (unk nown) date) disease exposure: unknown) chicken pox immunity discussed, hepatitis risk (unknown) (no (unknown) (unknown) Initial Weight: (units (unknown) date) 125 lb unknown) (unknown) (no (unknown) (unknown) Initials (units (unkno wn) date) unknown) (unknown) (no (unknown) (unknown) Intake Clinical (units (unknown) date) Staff unknown) (unknown) (no (unknown) (unknown) Intake performed (units (unknown) date) by: unknown) Tasneem Teixeira (unknown) (no (unknown) (unknown) Intake (units (unkno wn) date) unknown) (unknown) (no (unknown) (unknown) Live with (units (unkn own) date) someone with TB unknown) or exposed to TB: No (unknown) (no (unknown) (unknown) Loc: [facility] (units (unkno wn) date) unknown) (unknown) (no (unknown) (unknown) Lung cancer (units (un known) date) unknown) (unknown) (no (unknown) (unknown) Marijuana use, (units (unknown) date) Travel and unknown) Influenza vaccine (no flu, Covid x2 received) (unknown) (no (unknown) (unknown) Marijuana use: (units (unknown) date) discussed unknown) (unknown) (no (unknown) (unknown) Marital status: (units (unknown) date) unknown) (unknown) (no (unknown) (unknown) Medical History (units (unknown) date) (Updated 05/04/22 unknown) @ 09:20 by Autumn Teixeira RN) (unknown) (no (unknown) (unknown) Medications (units (un known) date) unknown) (unknown) (no (unknown) (unknown) Medications: (units (u nknown) date) unknown) (unknown) (no (unknown) (unknown) Mother (units (unkno wn) date) Gestational unknown) diabetes (unknown) (no (unknown) (unknown) New (units (unkno wn) date) unknown) (unknown) (no (unknown) (unknown) No Known Drug (units ( unknown) date) Allergies Allergy unknown) (Verified 05/04/22 08:53) (unknown) (no (unknown) (unknown) Number of Living (units (unknown) date) Children 0 unknown) (unknown) (no (unknown) (unknown) Nutrition and (units ( unknown) date) weight gain unknown) counseling: special diet: discussed (unknown) (no (unknown) (unknown) OB Office Visit (units (unknown) date) unknown) (unknown) (no (unknown) (unknown) OB Visit Log (units (u nknown) date) unknown) (unknown) (no (unknown) (unknown) On control (units (unknown) date) at conception?: unknown) No (unknown) (no (unknown) (unknown) PFSH (units (unkno wn) date) unknown) (unknown) (no (unknown) (unknown) PID (acute (units (unk nown) date) pelvic unknown) inflammatory disease) (unknown) (no (unknown) (unknown) PTSD (units (unkno wn) date) (post-traumatic unknown) stress disorder) (unknown) (no (unknown) (unknown) Para 0 (units (unkno wn) date) Spontaneous unknown) abortions 4 (unknown) (no (unknown) (unknown) Partner history (units (unknown) date) of STD: denies hx unknown) (unknown) (no (unknown) (unknown) Partner history (units (unknown) date) of genital unknown) herpes: No (unknown) (no (unknown) (unknown) Partner: [place] (units (unknown) date) Sites unknown) (unknown) (no (unknown) (unknown) Past Pregnancies (units (unknown) date) unknown) (unknown) (no (unknown) (unknown) Patient's age 37 (units (unknown) date) years or older as unknown) of estimated date of delivery: No (unknown) (no (unknown) (unknown) Patient: (units (unkno wn) date) Sites,[place] unknown) MR#: [id number] (unknown) (no (unknown) (unknown) Waters[facility] Coordinator: (units ( unknown) date) CHAR Garg unknown) (unknown) (no (unknown) (unknown) Personal history (units (unknown) date) of STD: other unknown) (PID (unknown bacterial agent) in 12/2021) (unknown) (no (unknown) (unknown) Personal history (units (unknown) date) of genital unknown) herpes: No (unknown) (no (unknown) (unknown) (units (unkn own) date) History unknown) (unknown) (no (unknown) (unknown) (units (unkno wn) date) Education unknown) (unknown) (no (unknown) (unknown) Initial (units (unknown) date) Assessment unknown) (unknown) (no (unknown) (unknown) (units (unkno wn) date) Testing: unknown) discussed (unknown) (no (unknown) (unknown) Visit (units (unknown) date) unknown) (unknown) (no (unknown) (unknown) (units (unkno wn) date) education packet: unknown) Child education/plan, symptoms, (unknown) (no (unknown) (unknown) Primary Care (units (u nknown) date) Provider: CHAR Puentes unknown) Britany (unknown) (no (unknown) (unknown) Primary Ob (units (unk nown) date) Provider: unknown) Tyesha Brito (unknown) (no (unknown) (unknown) Prior (units (unkno wn) date) GBS-Infected unknown) child: No (unknown) (no (unknown) (unknown) Prostate cancer (units (unknown) date) unknown) (unknown) (no (unknown) (unknown) Providers (units (unkn own) date) unknown) (unknown) (no (unknown) (unknown) Rash or viral (units ( unknown) date) illness since unknown) last menstrual period: No (unknown) (no (unknown) (unknown) Reason For Visit (units (unknown) date) unknown) (unknown) (no (unknown) (unknown) Recent travel (units ( unknown) date) outside of unknown) country?: No (unknown) (no (unknown) (unknown) Recurrent UTI (units ( unknown) date) unknown) (unknown) (no (unknown) (unknown) 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 (unknown) (no (unknown) (unknown) Recurrent (units (unkn own) date) loss or unknown) a stillbirth: Yes (unknown) (no (unknown) (unknown) Reports (units (unkno wn) date) 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) and Reports Mental (unknown) (no (unknown) (unknown) Retardation/Auti (units (unknown) date) sm (multiple unknown) siblings w/ autism) (unknown) (no (unknown) (unknown) Safety (units (unkno wn) date) unknown) (unknown) (no (unknown) (unknown) Schizophrenia (units ( unknown) date) unknown) (unknown) (no (unknown) (unknown) Signed By: (units (unk nown) date) unknown) (unknown) (no (unknown) (unknown) Sister Anxiety (units (unknown) date) unknown) (unknown) (no (unknown) (unknown) Sister (units (unkno wn) date) Depression unknown) (unknown) (no (unknown) (unknown) Smoking Status: (units (unknown) date) Former smoker unknown) (former vape use, quit) (unknown) (no (unknown) (unknown) Social History (units (unknown) date) unknown) (unknown) (no (unknown) (unknown) Support (units (unkno wn) date) Person(s):: unknown) [place] (unknown) (no (unknown) (unknown) Surgical History (units (unknown) date) (Updated 05/04/22 unknown) @ 08:56 by Autumn Teixeira RN) (unknown) (no (unknown) (unknown) Surrogate (units (unkn own) date) ?: no unknown) (unknown) (no (unknown) (unknown) Symptoms since (units (unknown) date) LMP: Reports unknown) amenorrhea, nausea, vomiting, fatigue, breast (unknown) (no (unknown) (unknown) Teratogen (units (unkn own) date) Exposures since unknown) LMP/Conception: Reports other (CT scan on 04/07/22) (unknown) (no (unknown) (unknown) Testing (units (unkno wn) date) Education unknown) (unknown) (no (unknown) (unknown) Testing (units (unkno wn) date) education unknown) completed: group B strep and Spina bifida testing (unknown) (no (unknown) (unknown) This note may (units ( unknown) date) have been all or unknown) partially generated using voice recognition (unknown) (no (unknown) (unknown) Tobacco + (units (unkn own) date) Substance Use unknown) (unknown) (no (unknown) (unknown) Tobacco Status (units (unknown) date) unknown) (unknown) (no (unknown) (unknown) Type(s) of (units (unk nown) date) exercise: walking unknown) (unknown) (no (unknown) (unknown) UProtein Movement (units (unknown) date) PreLabor FHR Fndl unknown) Ht Pres Edema Cerv Exam US/Comment Next Appt (unknown) (no (unknown) (unknown) Varicella/chicke (units (unknown) date) n pox status: unknown) immunized (unknown) (no (unknown) (unknown) Visit Reasons: (units (unknown) date) Telephone intake unknown) for Hendrzak (unknown) (no (unknown) (unknown) Vitamins and (units (u nknown) date) iron, Diet and unknown) weight gain, Fish and mercury intake, Smoking, (unknown) (no (unknown) (unknown) WG (units (unkno wn) date) unknown) (unknown) (no (unknown) (unknown) Zika virus (units (unk n) date) exposure: No unknown) (unknown) (no (unknown) (unknown) activity, X-ray (units (unknown) date) exposure, unknown) Medication use, Sauna/hot tub use, Dental care, (unknown) (no (unknown) (unknown) alcohol intake: (units (unknown) date) never unknown) (unknown) (no (unknown) (unknown) anyone in either (units (unknown) date) family with: unknown) (unknown) (no (unknown) (unknown) caffeine: Yes (units ( unknown) date) (occasionally, unknown) aware of 200mg limit) (unknown) (no (unknown) (unknown) carbon monox (units (u nknown) date) detector in home: unknown) Yes (unknown) (no (unknown) (unknown) coenzyme Q10 (Co (units (unknown) date) Q-10) 100 mg PO unknown) DAILY (unknown) (no (unknown) (unknown) coenzyme Q10 100 (units (unknown) date) mg capsule (Co unknown) Q-10) 100 mg PO DAILY 04/27/22 [History (unknown) (no (unknown) (unknown) current (units (unkno wn) date) occupational unknown) exposures/hazards : No (unknown) (no (unknown) (unknown) daily servings (units (unknown) date) fruits/ve-4 unknown) (unknown) (no (unknown) (unknown) described, visit (units (unknown) date) schedule unknown) reviewed, ultrasounds policy reviewed, coverage 24 (unknown) (no (unknown) (unknown) discussed, (units (unk nown) date) tuberculosis unknown) exposure discussed, CMV discussed, Toxoplasmosis (unknown) (no (unknown) (unknown) do you feel safe (units (unknown) date) at home: Yes unknown) (unknown) (no (unknown) (unknown) duration: 15-30 (units (unknown) date) minutes/day unknown) (unknown) (no (unknown) (unknown) during the past (units (unknown) date) year weight has: unknown) other ([id number] lb) (unknown) (no (unknown) (unknown) education level: (units (unknown) date) high school unknown) (unknown) (no (unknown) (unknown) ferrous sulfate (units (unknown) date) 325 mg (65 mg unknown) iron) tablet 325 mg PO DAILY 04/27/22 [History (unknown) (no (unknown) (unknown) ferrous sulfate (units (unknown) date) 325 mg PO DAILY unknown) (unknown) (no (unknown) (unknown) fire (units (unkno wn) date) 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 unknown) home: Yes (unknown) (no (unknown) (unknown) firearms in (units (un known) date) home: Yes unknown) firearms unloaded and locked: Yes (unknown) (no (unknown) (unknown) folic acid 0.5 (units (unknown) date) mg PO DAILY unknown) (unknown) (no (unknown) (unknown) folic acid 1 mg (units (unknown) date) tablet 0.5 mg PO unknown) DAILY 04/27/22 [History Confirmed 05/04/22] (unknown) (no (unknown) (unknown) have occurred. (units (unknown) date) If there are any unknown) questions, please contact the Medical Records (unknown) (no (unknown) (unknown) hours a day and (units (unknown) date) participation of unknown) father in care and office visits (unknown) (no (unknown) (unknown) household (units (unkn own) date) members: spouse unknown) (unknown) (no (unknown) (unknown) housing: (units (unkno wn) date) apartment unknown) (unknown) (no (unknown) (unknown) lives (units (unkno wn) date) independently: unknown) Yes (unknown) (no (unknown) (unknown) marital status: (units (unknown) date) unknown) (unknown) (no (unknown) (unknown) may occur. (units (unk nown) date) Occasional unknown) wrong-word or 'sound-alike' substitutions may have (unknown) (no (unknown) (unknown) number of (units (unkn own) date) children: 0 unknown) (unknown) (no (unknown) (unknown) occupational (units (u nknown) date) status: unknown) unemployed (unknown) (no (unknown) (unknown) occurred due to (units (unknown) date) the inherent unknown) limitations of voice recognition software. Please (unknown) (no (unknown) (unknown) pets and (units (unkno wn) date) animals: Yes (1 unknown) dog 1 cat; aware of toxo) (unknown) (no (unknown) (unknown) precautions, (units (u nknown) date) Listeriosis unknown) prevention and Rubella Immunization (unknown) (no (unknown) (unknown) prenat.vits,jack, (units (unknown) date) [id number] 1 unknown) tab PO DAILY 04/27/22 [History Confirmed (unknown) (no (unknown) (unknown) prenat.vits,jack, (units (unknown) date) fpc-sydi-mhycm 1 unknown) tab PO DAILY (unknown) (no (unknown) (unknown) read the note (units ( unknown) date) carefully and unknown) recognize, using context, where these substitutions (unknown) (no (unknown) (unknown) screen) (units (unkno wn) date) unknown) (unknown) (no (unknown) (unknown) seatbelt use: (units ( unknown) date) always unknown) (unknown) (no (unknown) (unknown) second hand (units (un known) date) exposure: Yes unknown) (while visiting family (mom smokes)) (unknown) (no (unknown) (unknown) software. (units (unkn own) date) Although every unknown) effort is made to edit content, grinder hand errors (unknown) (no (unknown) (unknown) special mirella (units ( unknown) date) needs: No unknown) (unknown) (no (unknown) (unknown) substance use (units ( unknown) date) type: marijuana unknown) (quit when she learned she was ) (unknown) (no (unknown) (unknown) tenderness, (units (un known) date) urinary unknown) frequency, irritability, bloating and other (heartburn) (unknown) (no (unknown) (unknown) travel history: (units (unknown) date) recent (domestic unknown) only) (unknown) (no (unknown) (unknown) water heater (units (u nknown) date) temp set < 120 unknown) deg: No (Will call landlord to adjust ) (unknown) (no (unknown) (unknown) well-balanced (units ( unknown) date) diet: daily or unknown) most days (unknown) (no (unknown) (unknown) working smoke (units ( unknown) date) detector in home: unknown) Yes Result panel 21 (unknown) (no (unknown) (unknown) (no value) (units (unk nown) date) unknown) (unknown) (no (unknown) (unknown) [id number] (units (unkno wn) date) unknown) (unknown) (no (unknown) (unknown) 05/17/22 (units (unkno wn) date) unknown) (unknown) (no (unknown) (unknown) 1. [place] (units (u nknown) date) living unknown) intrauterine at 8 weeks 5 days based on today's (unknown) (no (unknown) (unknown) [address] [place] [address] (units (unknown) date) unknown) (unknown) (no (unknown) (unknown) 2. No (units (unkno wn) date) perigestational unknown) hemorrhage. (unknown) (no (unknown) (unknown) A yolk sac is (units ( unknown) date) seen. No unknown) perigestational hemorrhage. (unknown) (no (unknown) (unknown) Accession Number: (units (unknown) date) [id number] unknown) (unknown) (no (unknown) (unknown) Age/Sex: 21 / F (units (unknown) date) Date of Service: unknown) (unknown) (no (unknown) (unknown) [place], [place] (units ( unknown) date) [id number] unknown) (unknown) (no (unknown) (unknown) Approved by: (units (u nknown) date) Marques Moise M.D. unknown) on 05/17/2022 at 11:42 (unknown) (no (unknown) (unknown) COMPARISON: (units (un known) date) [facility], unknown) CT, CT ABDOMEN PELVIS W CON, 04/07/2022, 15:48. (unknown) (no (unknown) (unknown) : 2000 (units (unknown) date) Acct:[id number] unknown) (unknown) (no (unknown) (unknown) Dictated by: (units (u nknown) date) Marques Moise M.D. unknown) on 05/17/2022 at 11:40 (unknown) (no (unknown) (unknown) Embryo: (units (unkno wn) date) [place]-rump length unknown) measuring 2.1 cm, gestational age 8 weeks 5 days (unknown) (no (unknown) (unknown) Estimated date of (units (unknown) date) delivery (TIFFANIE) unknown) from first dating scan: 12/22/2022. (unknown) (no (unknown) (unknown) FINDINGS: (units (unkn own) date) unknown) (unknown) (no (unknown) (unknown) First dating scan (units (unknown) date) (date and unknown) location): 05/17/2022. (unknown) (no (unknown) (unknown) Heart rate: 173 (units (unknown) date) bpm unknown) (unknown) (no (unknown) (unknown) IMPRESSION: (units (un known) date) unknown) (unknown) (no (unknown) (unknown) INDICATIONS: (units (u nknown) date) DATES unknown) (unknown) (no (unknown) (unknown) [facility] (units (unknown) date) unknown) (unknown) (no (unknown) (unknown) LMP-based (units (unkn own) date) estimated date of unknown) delivery (TIFFANIE): 12/24/2022. (unknown) (no (unknown) (unknown) Last menstrual (units (unknown) date) period (LMP): unknown) 03/19/2022. (unknown) (no (unknown) (unknown) Loc: [place] (units (unkno wn) date) unknown) (unknown) (no (unknown) (unknown) Maternal organs: (units (unknown) date) Right corpus unknown) luteum is suspected. Left ovary is not seen. (unknown) (no (unknown) (unknown) OUTSIDE/PRIOR (units ( unknown) date) DATING DATA: unknown) (unknown) (no (unknown) (unknown) Ordering (units (unkno wn) date) Provider: unknown) Tyesha Brito MD (unknown) (no (unknown) (unknown) PROCEDURE: US OB (units (unknown) date) <= 14 WEEKS FETUS unknown) (unknown) (no (unknown) (unknown) Patient: (units (unkno wn) date) [facility] N unknown) MR#: [id number] (unknown) (no (unknown) (unknown) Procedure: US OB (units (unknown) date) <= 14 weeks fetus unknown) (unknown) (no (unknown) (unknown) Real-time (units (unkn own) date) scanning was unknown) performed of the fetus and maternal pelvic organs, with (unknown) (no (unknown) (unknown) Signed (units (unkno wn) date) unknown) (unknown) (no (unknown) (unknown) TECHNIQUE: (units (unk nown) date) unknown) (unknown) (no (unknown) (unknown) The calculations (units (unknown) date) are made using the unknown) ultrasound TIFFANIE of 12/22/2022. (unknown) (no (unknown) (unknown) To assist (units (unkn own) date) unknown) (unknown) (no (unknown) (unknown) Ultrasound Report (units (unknown) date) unknown) (unknown) (no (unknown) (unknown) We strive to (units (u nknown) date) produce accurate, unknown) complete, and clear reports of imaging services. (unknown) (no (unknown) (unknown) and voice (units (unkn own) date) recognition unknown) software. Therefore, it may contain abnormal punctuation, (unknown) (no (unknown) (unknown) crown rump (units (unk nown) date) unknown) (unknown) (no (unknown) (unknown) documentation. (units (unknown) date) Endovaginal unknown) scanning was also performed to better visualize the (unknown) (no (unknown) (unknown) fetus and (units (unkn own) date) unknown) (unknown) (no (unknown) (unknown) image (units (unkno wn) date) unknown) (unknown) (no (unknown) (unknown) inaccuracies. (units ( unknown) date) unknown) (unknown) (no (unknown) (unknown) insertions and/or (units (unknown) date) omissions. unknown) Occasional wrong-word or sound-alike substitutions (unknown) (no (unknown) (unknown) length. (units (unkno wn) date) unknown) (unknown) (no (unknown) (unknown) maternal ovaries. (units (unknown) date) unknown) (unknown) (no (unknown) (unknown) may (units (unkno wn) date) unknown) (unknown) (no (unknown) (unknown) occur. Though we (units (unknown) date) review the report unknown) and make efforts to correct it, we do (unknown) (no (unknown) (unknown) recommend that (units (unknown) date) unknown) (unknown) (no (unknown) (unknown) templates (units (unkn own) date) unknown) (unknown) (no (unknown) (unknown) the report be (units ( unknown) date) read carefully in unknown) proper context to recognize any text (unknown) (no (unknown) (unknown) us in improving (units (unknown) date) patient care, this unknown) report was composed using standard report Social History No information. Vital Signs No information.
--- NOTE | 2022-06-08 22:32 | ED Physician Documentation ---
PD HPI FEMALE - Stated complaint Stated Complaint: OB -BLEEDING - Chief complaint Chief Complaint: Abd Pain - History obtained from History obtained from: Patient - History of Present Illness Timing - onset: Today - Additional information Additional information: 21-year-old female approximately 12 weeks gestational age presents by private vehicle for evaluation of blood in her underwear earlier today. Patient states that she went to the movies and when she came back she felt some left-sided pelvic pain and noticed blood in her underwear when she went to use the restroom. Denies cramping, loss of fluids. She states she has an [facility] appointment tomorrow. Review of Systems Ten Systems: 10 systems reviewed and negative Constitutional: denies: Fever, Chills Cardiac: denies: Chest pain / pressure, Palpitations, Calf pain Respiratory: denies: Dyspnea, Cough, Wheezing GI: denies: Abdominal Pain, Nausea, Vomiting : reports: Vaginal bleeding, Now EGA. denies: Hesitancy, Hematuria PD PAST MEDICAL HISTORY - Past Medical History Past Medical History: No Psych: Depression, Anxiety - Past Surgical History Past Surgical History: No - Present Medications Home Medications: Ambulatory Orders Medication Instructions Recorded Confirmed No Known Home Medications 06/08/22 06/08/22 - Allergies Allergies/Adverse Reactions: Allergies Allergy/AdvReac Type Severity Reaction Status Date / Time No Known Drug Allergies Allergy Verified 06/08/22 22:10 - Social History Does the pt smoke?: No Smoking Status: Never smoker Does the pt drink ETOH?: No Does the pt have substance abuse?: No - Immunizations Immunizations are current?: Yes PD ED PE NORMAL - Vitals Vital signs reviewed: Yes - General General: Alert and oriented X 3, No acute distress, Well developed/nourished - Neck Neck: Supple, no meningeal sign, No bony TTP, No adenopathy, C-Spine cleared by NEXUS criteria - Cardiac Cardiac: RRR, No murmur, Strong equal pulses - Respiratory Respiratory: No respiratory distress, Clear bilaterally - Abdomen Abdomen: Soft, Non tender, Non distended - Back Back: No CVA TTP, No spinal TTP - Derm Derm: Normal color, Warm and dry, No rash - Extremities Extremities: No deformity, No tenderness to palpate, Normal ROM s pain, No edema, No calf tenderness / cord - Neuro Neuro: Alert and oriented X 3, 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 2-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, Normal speech - Psych Psych: Normal mood, Normal affect Results - Vitals Vitals: Vital Signs - 24 hr 06/08/22 06/08/22 06/08/22 22:10 22:38 23:25 Temperature 36.5 C Heart Rate 100 101 H Respiratory 16 16 15 Rate Blood Pressure 123/80 O2 Saturation 100 100 06/09/22 06/09/22 00:07 00:23 Temperature 36.5 C Heart Rate 89 79 Respiratory 16 Rate Blood Pressure 109/76 106/68 O2 Saturation 100 99 Oxygen O2 Source Room air - Labs Labs: Laboratory Tests 06/08/22 06/08/22 22:39 23:55 HCG, Quant 954950.00 Urine Color YELLOW Urine Clarity CLEAR Urine pH 6.0 Ur Specific [place] 1.025 Urine Protein NEGATIVE Urine Glucose (UA) NEGATIVE Urine Ketones 40 H Urine Occult Blood NEGATIVE Urine Nitrite NEGATIVE Urine Bilirubin NEGATIVE Urine Urobilinogen 0.2 (NORMAL) Ur Leukocyte Esterase TRACE H Urine RBC None Seen Urine WBC 0-3 Ur Squamous Epith Cells FEW Squamous Urine Bacteria Rare Ur Microscopic Review INDICATED Urine Culture Comments INDICATED PD MEDICAL DECISION MAKING - ED course Complexity details: reviewed results, re-evaluated patient, considered differential, d/w patient ED course: Vaginal bleeding, patient is blood type O+. Hcg reviewed. US with small subchorionic hemorrhage. Patient counseled on results at bedside. She has an appointment tomorrow with OBGN and will follow up at that time. Pelvic rest counseled until cleared by OBGYN. Departure - Departure Disposition: 01 Home, Self Care Clinical Impression: Vaginal bleeding affecting early , Subchorionic bleed Condition: Stable Instructions: ED Miscarriage Poss Comments: You were seen today for vaginal bleeding in early . At this time your ultrasound shows a viable intrauterine at approximately 11 weeks 6 days. You did have a small subchorionic bleed, these are relatively common in early , however you should follow pelvic rest until seen and evaluated by her [facility]. This means no sexual intercourse and nothing in the vagina until seen and cleared by [facility]. There was an incidental finding over your right ovary, less than 1 cm in size. I do not know what this means, however it is very important that you have close follow-up with your [facility] and keep your appointment tomorrow as already sched ed. Discharge Date/Time: 06/09/22 00:23
[2022-06-09 00:05] LABS: BILIRUBIN,URINE NEGATIVE (NEGATIVE); GLUCOSE, URINE (UA) NEGATIVE (NEGATIVE); KETONES,URINE (UA) 40 mg/dL (NEGATIVE); LEUKOCYTE ESTERASE, URINE TRACE (NEGATIVE); NITRITE,URINE NEGATIVE (NEGATIVE); OCCULT BLOOD,URINE NEGATIVE (NEGATIVE); PROTEIN,URINE NEGATIVE (NEGATIVE); UROBILINOGEN,URINE 0.2 (NORMAL) E.U./dL (NORMAL)
[2022-06-09 00:12] LABS: CLARITY,URINE CLEAR (CLEAR)
[2022-06-09 00:13] LABS: BACTERIA,URINE Rare /HPF (None Seen); RBC,URINE None Seen /HPF (0-5); SQUAMOUS EPITHELIAL CELL,UR FEW Squamous (<= Few); WBC,URINE 0-3 /HPF (0-5)
--- NOTE | 2022-06-09 00:18 | Ultrasound Report ---
PROCEDURE: OB First Trimester w/TV INDICATIONS: VB 12 WEEK PREG OUTSIDE/PRIOR DATING DATA: Last menstrual period (LMP): 03/19/2022. LMP-based estimated date of delivery (TIFFANIE): 12/24/2022. First dating scan (date and location): 05/17/2022. Estimated date of delivery (TIFFANIE) from first dating scan: 12/22/2022. TECHNIQUE: Real-time scanning was performed of the fetus and maternal pelvic organs, with image documentation. Endovaginal scanning was also performed to better visualize the fetus and maternal ovaries. COMPARISON: [facility] ultrasound 05/17/2022. Pelvic ultrasound 01/17/2022 FINDINGS: Embryo: There is an intrauterine with a gestational sac and pole demonstrated. The c rown-rump length measures 5.3 cm corresponding to gestational age of 11 weeks 6 days. Heart rate: 162 beats per minute. There is a small hypoechoic slightly heterogeneous collection measuring up to 1.1 x 0.3 x 3.4 cm ryann esponding to a subchorionic hematoma. Measurement variability in dating: +/- 4 weeks by LMP, +/- 7 days by mean sac diameter (use before 6 weeks gestation if crown-rump length not able to be measured), +/- 5 days by crown-rump length (6-12 weeks gestation). Maternal organs: Ovaries appear within normal size limits. Within the central right ovary, there is a slightly hyperechoic structure measuring approximately 0.9 cm in dimension. IMPRESSION: 1. Single living intrauterine demonstrating appropriate interval growth with a calculated g estational age of 11 weeks 6 days corresponding to an estimated delivery date of 12/22/2022. 2. Small subchorionic hematoma. Recommend clinical follow-up and short-term repeat ultrasound if sanna cated. 3. Nonspecific small hyperechoic structure within the right ovary may represent a small dermoid. Reviewed by: Caleb Smith MD on 06/09/2022 12:17 AM PDT Approved by: Caleb Smith MD on 06/09/2022 12:17 AM PDT Station ID: [id number]
[2022-06-09 00:24] VITALS: BP 106/68
== END 2022-06-09 00:23 | disposition home or self-care (01) ==
LOC: ED 22:04
DX: O20.9 Hemorrhage in early pregnancy, unspecified (principal); O41.8X10 Other specified disorders of amniotic fluid and membranes, first trimester, not applicable or unspecified; Z3A.11 11 weeks gestation of pregnancy
CPT/HCPCS: 36415; 81001; 81003; 84702; 87086; 99282; 99284

== ENCOUNTER 2022-08-06 13:52 | Outpatient (CLI) | payer OTHER ==
--- NOTE | 2022-08-07 10:45 | Ultrasound Report ---
PROCEDURE: OB Detailed Eval INDICATIONS: SUPERVISION OF OUTSIDE/PRIOR DATING DATA: Last menstrual period (LMP): 03/19/2022. LMP-based estimated date of delivery (TIFFANIE): 12/24/2022. First dating scan (date and location): 06/08/2022 at [facility]. Estimated date of delivery (TIFFANIE) from first dating scan: 12/22/2022. Working date of delivery (TIFFANIE): 12/22/2022. TECHNIQUE: Real-time scanning was performed of the fetus, with image documentation and biometric measurements. COMPARISON: OB ultrasound, 06/04/2022. FINDINGS: General: A single living intrauterine gestation is present. Presentation: Vertex Placenta: Placental position is posterior, without previa. Amniotic fluid index: 12 cm; largest pocket 3.48 cm. heart rate: 137 beats per minute. Maternal cervical canal: 3.5 cm long and closed; normal length is 2.5 cm or more. biometrics: Biparietal diameter: 19 weeks 2 days Head circumference: 20 weeks 1 day Abdominal circumference: 19 weeks 6 days Femur length: 20 weeks 1 day Estimated gestational age from initial scan: 20 weeks 2 days. Composite gestational age from present scan: 19 weeks 6 days Estimated weight and percentile: 323.9 g; 28.3% Measurement variability in biometric dating: +/- 10 days from 12-20 weeks gestation, +/- 2 weeks from 20-30 weeks gestation, +/- 3 weeks at 30 weeks gestation or later. Anatomic survey: Neuro: Ventricles are normal at less than 10 mm. Cisterna magna is normal at 3-11 mm. Cerebellum i s normal in size and morphology. Nuchal skin fold: Normal at less than 6 mm between 14 and 20 weeks gestational age. Face: Nose and lips, facial profile are normal. Spine: No evidence for spina bifida. Heart: 4-chambered heart is present, with normal ventricular outflow tracts. Diaphragm: Diaphragm is intact. Stomach: Left-sided stomach is present. Kidneys: No hydronephrosis. Normal is less than 5 mm in 2nd trimester, less than 7 mm in 3rd trimester. Cord: 3 vessel cord has orthotopic insertion. Bladder: Normal in size. Extremities: All 4 extremities are visualized. Other: There is a 1.8 x 1.1 x 1.3 cm corpus luteal cyst in the maternal right ovary. IMPRESSION: 1. A single living intrauterine gestation with appropriate interval growth. 2. weight at 28.3%. 3. ANGELINE 12 cm. 4. Normal anatomic survey. Reviewed by: Na Garcia MD on 08/07/2022 10:44 AM [facility] [email or web address]] Approved by: Na Garcia MD on 08/07/2022 10:44 AM [facility] [[email or web address]] Station ID: [id number]
== END 2022-08-06 13:53 | disposition home or self-care (01) ==
LOC: DI 13:52
PROVIDERS: ATTEND Obstetrics & Gynecology
DX: Z34.82 Encounter for supervision of other normal pregnancy, second trimester (principal)

== ENCOUNTER 2022-09-27 19:21 | Outpatient (CLI) | payer OTHER | END 2022-09-27 19:22 | disposition EMS.NT | LOC: EMS 19:21 | DX: O99.891 Other specified diseases and conditions complicating pregnancy (principal); R42 Dizziness and giddiness; R11.2 Nausea with vomiting, unspecified; R51.9 Headache, unspecified; R10.2 Pelvic and perineal pain; N90.89 Other specified noninflammatory disorders of vulva and perineum ==

== ENCOUNTER 2022-10-21 16:05 | Outpatient (CLI) | payer OTHER ==
[2022-10-21 23:01] LABS: BACTERIAL VAGINOSIS DNA NEGATIVE (NEGATIVE); CANDIDA GLABRATA DNA NEGATIVE (NEGATIVE); CANDIDA GROUP DNA POSITIVE (NEGATIVE); CANDIDA KRUSEI DNA NEGATIVE (NEGATIVE); TRICHOMONAS VAGINALIS DNA NEGATIVE (NEGATIVE)
== END 2022-10-21 23:59 | disposition home or self-care (01) ==
LOC: LAB.N 16:05
PROVIDERS: ATTEND Family Medicine
DX: N89.8 Other specified noninflammatory disorders of vagina (principal)
CPT/HCPCS: 81514

== ENCOUNTER 2022-11-11 19:02 | Emergency (ER) | payer OTHER ==
[2022-11-11 19:26] LABS: BILIRUBIN,URINE NEGATIVE (NEGATIVE); CLARITY,URINE CLEAR (CLEAR); GLUCOSE, URINE (UA) NEGATIVE (NEGATIVE); KETONES,URINE (UA) NEGATIVE (NEGATIVE); LEUKOCYTE ESTERASE, URINE TRACE (NEGATIVE); NITRITE,URINE NEGATIVE (NEGATIVE); OCCULT BLOOD,URINE NEGATIVE (NEGATIVE); PH,URINE 6.5 PH (5.0-7.5); PROTEIN,URINE NEGATIVE (NEGATIVE); UROBILINOGEN,URINE 0.2 (NORMAL) E.U./dL (NORMAL)
[2022-11-11 19:37] LABS: BACTERIA,URINE Few /HPF (None Seen); RBC,URINE 0-5 /HPF (0-5); SQUAMOUS EPITHELIAL CELL,UR FEW Squamous (<= Few)
[2022-11-11] MEDS ORDERED: cephALEXin 250 MG CAPSULE PO STA (20:43)
--- NOTE | 2022-11-11 20:43 | ED Physician Documentation ---
PD HPI ABD PAIN - Stated complaint Stated Complaint: FEMALE - Chief complaint Chief Complaint: Abd Pain - History obtained from History obtained from: Patient - Additional information Additional information: Patient is a 22-year-old female who is approximately 34 weeks presenting for evaluation of dysuria that she has noticed for 1 day. She also reports having lower abdominal cramping and feeling some discharge. She has noted some wetness on her underwear for the past few days. She denies blood. She is feeling baby move. She called her OB today with concerns for urine infection. She dropped off a urine specimen and was able to check her results through the [facility] patient portal.She reached out to the on-call OB as a direct did her to call back tomorrow during office hours regarding her urine results. She was concerned that she could have an infection that was not yet being treated and thus has presented here. She is feeling her baby move.Her OB is at [facility]. Her last appointment was approximately 1 week ago. Review of Systems Constitutional: denies: Fever Cardiac: denies: Chest pain / pressure Respiratory: denies: Dyspnea GI: reports: Abdominal Pain : reports: Dysuria, Discharge Neurologic: denies: Headache PD PAST MEDICAL HISTORY - Past Medical History Cardiovascular: None Respiratory: None Neuro: None Endocrine/Autoimmune: None GI: None STRIP POLISHER: None : None HEENT: None Psych: Depression, Anxiety Musculoskeletal: None Derm: None - Past Surgical History Past Surgical History: No General: Other Ortho: Other - Present Medications Home Medications: Ambulatory Orders Medication Instructions Recorded Confirmed Cephalexin Suspension [Keflex] 500 mg PO QID 7 Days #280 ml 11/11/22 NIFEdipine [Procardia] 10 mg PO DAILY PRN 11/11/22 11/11/22 Sertraline [Zoloft] 25 mg PO DAILY 11/11/22 11/11/22 - Allergies Allergies/Adverse Reactions: Allergies Allergy/AdvReac Type Severity Reaction Status Date / Time No Known Drug Allergies Allergy Verified 11/11/22 19:11 - Social History Does the pt smoke?: No Smoking Status: Never smoker Does the pt drink ETOH?: No Does the pt have substance abuse?: No - Immunizations Immunizations are current?: Yes - POLST Patient has POLST: No PD ED PE NORMAL - General General: Alert and oriented X 3, No acute distress, Well developed/nourished - HEENT HEENT: Atraumatic - Neck Neck: Supple, no meningeal sign - Cardiac Cardiac: RRR - Respiratory Respiratory: No respiratory distress - Abdomen Abdomen: Normal bowel sounds, Soft, Non tender, Other (Gravid abdomen consistent with third trimester gestation) - Derm Derm: Warm and dry Results - Vitals Vitals: Vital Signs - 24 hr 11/11/22 11/11/22 19:06 21:00 Temperature 36.6 C 36.9 C Heart Rate 79 72 Respiratory 14 16 Rate Blood Pressure 112/73 125/68 O2 Saturation 100 100 Oxygen O2 Source Room air - Labs Labs: Laboratory Tests 11/11/22 19:10 Urine Color YELLOW Urine Clarity CLEAR Urine pH 6.5 Ur Specific Fine 1.010 Urine Protein NEGATIVE Urine Glucose (UA) NEGATIVE Urine Ketones NEGATIVE Urine Occult Blood NEGATIVE Urine Nitrite NEGATIVE Urine Bilirubin NEGATIVE Urine Urobilinogen 0.2 (NORMAL) Ur Leukocyte Esterase TRACE H Urine RBC 0-5 Urine WBC 4-5 Ur Squamous Epith Cells FEW Squamous Urine Bacteria Few Ur Microscopic Review INDICATED Urine Culture Comments INDICATED PD Medical Decision Making - ED course ED course: 2042 D/W Dr. Young. She is okay with us treating the urine infection and agrees with plan for patient to be evaluated in labor and delivery. Patient presenting for evaluation of dysuria for 1 day along with lower abdominal discomfort and possible vaginal discharge.She is 34 weeks . Meena lora was able to pull up her urine analysis results from [facility] through the patient portal. The UA from earlier demonstrates many bacteria with 30-40 WBC.Given her symptoms and presence of bacteria and concern for UTI.Patient states that she is not able to take pills and requests liquid medication for antibiotics. She also describes having concerns for vaginal discharge along with lower abdominal cramping.Given how far she has a long in her I feel it is warranted that she be evaluated in labor and delivery to make sure that she does not have signs of early labor or premature rupture of her membranes.I spoke with on-call OB. Patient is also comfortable with this plan to be evaluated in labor and delivery. heart tones taken at the bedside appear to be within normal limits. Departure - Departure Disposition: 01 Home, Self Care Clinical Impression: UTI (urinary tract infection) Condition: Stable Instructions: ED UTI Cystitis Female Prescriptions: Cephalexin Suspension [Keflex] 500 mg PO QID 7 Days #280 ml Comments: I have started you on an antibiotic for urine infection. I sent this prescription to [facility] in [place]. I would like you to go directly to labor and delivery to be evaluated. If it anytime you have any worsening symptoms please consider return to the emergency department but otherwise please go again directly to labor and delivery. Discharge Date/Time: 11/11/22 21:00
[2022-11-11] MEDS ORDERED: CEPHALEXIN 125 MG/5 ML SYRINGE PO STA (20:46)
--- OUTSIDE RECORDS SUMMARY | 2022-11-11 20:51 | EXTERNAL MEDICAL SUMMARY RPT | Continuity of Care Document ---
:2000 Author Organization [place] Address [address] [place] [address] Phone Care Team Providers Name Role Phone Kris Hensley Unavailable Unavailable Allergies and Intolerances date description facility type (no date) No Known Drug Allergies [facility] ([facility] own) Encounters No information. Functional Status No information. Immunizations No information. Medications date description facility 2022-10-19 00:00 Nifedipine [facility] 2022-10-19 00:00 [facility] Problems date description facility 2022-09-28 00:00 Gastroenteritis [facility] 2022-09-28 00:00 [facility] 2022-09-28 00:00 27 weeks gestation of [facility] 2022-09-28 08:44 Noninfective gastroenteritis and coliti s, [facility] unspecified 2022-09-28 08:44 27 weeks gestation of [facility] 2022-10-03 20:55 Encounter for supervision of normal pre gnancy, [facility] unspecified, 2022-10-04 00:00 28 weeks gestation of [facility] 2022-10-04 10:00 [facility] unspecified, 2022-10-04 10:00 28 weeks gestation of [facility] 2022-10-05 08:10 Encounter for supervision of normal pre gnancy, [facility] unspecified, 2022-10-05 08:10 28 weeks gestation of [facility] 2022-10-10 00:00 uterine contractions [facility] 2022-10-19 00:00 Diarrhea [facility] 2022-10-21 13:49 premature rupture of membranes, [facility] unspecified as to le 2022-10-27 07:12 Decreased movements, third trimes [facility], [facility] applicable o 2022-10-28 00:00 Decreased movement affecting [facility] of in third trimester 2022-10-28 15:53 Decreased movements, third trimes ter, [facility] applicable o 2022-11-11 17:31 [facility] Procedures date description facility 2022-09-27 00:00 Gram Stain [facility] 2022-09-28 00:00 Gram Stain [facility] 2022-09-29 00:00 Gram Stain [facility] 2022-10-03 00:00 Gram Stain [facility] 2022-10-10 00:00 Gram Stain [facility] 2022-10-18 00:00 Gram Stain [facility] 2022-10-19 00:00 Gram Stain [facility] 2022-10-23 00:00 Gram Stain [facility] 2022-09-27 00:00 Wet Prep [facility] 2022-09-28 00:00 Wet Prep [facility] 2022-09-29 00:00 Wet Prep [facility] 2022-10-03 00:00 Wet Prep [facility] 2022-10-10 00:00 Wet Prep [facility] 2022-10-18 00:00 Wet Prep [facility] 2022-10-19 00:00 [facility] Prep [facility] 2022-10-23 00:00 [facility] Prep [facility] 2022-09-29 00:00 Transvaginal obstetrical ultrasound [facility] 2022-10-10 00:00 Transvaginal obstetrical ultrasound [facility] Results/Labs test date author facility value unit interpret ation Result panel 1 (unknown[facility] (no [facility]) Result panel 2 (unknown) (no date) (unknown[facility] Result panel 3 (unknown) (no date) (unknown[facility] Result panel 4 (unknown) (no date) (unknown[facility] Result panel 5 (unknown) (no date) (unknown[facility] Result panel 6 (unknown) (no date) (unknown[facility] Result panel 7 (unknown) (no date) (unknown[facility] Result panel 8 (unknown) (no date) (unknown[facility] Result panel 9 (unknown) (no date) (unknown[facility] Result panel 10 (unknown) (no date) (unknown[facility] Result panel 11 (unknown) (no date) (unknown[facility] Result panel 12 (unknown) (no date) (unknown[facility] Result panel 13 (unknown) (no date) (unknown[facility] Result panel 14 (unknown) (no date) (unknown[facility] Result panel 15 (unknown) (no date) (unknown[facility] Result panel 16 (unknown) (no date) (unknown[facility] Result panel 17 (unknown) (no date) (unknown[facility] Result panel 18 (unknown) (no date) (unknown[facility]) Result panel 19 (unknown) (no date) (unknown[facility] Result panel 20 (unknown) (no date) (unknown[facility] Result panel 21 (unknown) (no date) (unknown[facility] Result panel 22 (unknown) (no date) (unknown[facility] Result panel 23 (unknown) (no date) (unknown[facility] Result panel 24 (unknown) (no date) (unknown[facility] Result panel 25 (unknown) (no date) (unknown[facility] Result panel 26 (unknown) (no date) (unknown[facility]) Result panel 27 (unknown) (no date) (unknown[facility] Result panel 28 (unknown) (no date) (unknown[facility] Result panel 29 (unknown) (no date) (unknown[facility] Result panel 30 (unknown) (no date) (unknown[facility] Result panel 31 (unknown) (no date) (unknown[facility] Result panel 32 (unknown) (no date) (unknown[facility] Result panel 33 (unknown) (no date) (unknown[facility] Result panel 34 (unknown) (no date) (unknown[facility]) Result panel 35 (unknown) (no date) (unknown[facility] Result panel 36 (unknown) (no date) (unknown[facility] Result panel 37 (unknown) (no date) (unknown[facility]) Result panel 38 (unknown) (no date) (unknown[facility] Result panel 39 (unknown) (no date) (unknown[facility]) Result panel 40 (unknown) (no date) (unknown[facility] Result panel 41 (unknown) (no date) (unknown[facility] Result panel 42 (unknown) (no date) (unknown[facility]) Result panel 43 (unknown) (no date) (unknown[facility] Result panel 44 (unknown) (no date) (unknown[facility]) Result panel 45 (unknown) (no date) (unknown[facility] Result panel 46 (unknown) (no date) (unknown[facility] Result panel 47 (unknown) (no date) (unknown[facility]) Result panel 48 (unknown) (no date) (unknown[facility] Result panel 49 (unknown) (no date) (unknown[facility] Result panel 50 (unknown) (no date) (unknown[facility]) Result panel 51 (unknown) (no date) (unknown[facility] Result panel 52 (unknown) (no date) (unknown[facility]) Result panel 53 (unknown) (no date) (unknown[facility] Result panel 54 (unknown) (no date) (unknown[facility]) Result panel 55 (unknown) (no date) (unknown[facility]) Result panel 56 (unknown) (no date) (unknown[facility]) Result panel 57 (unknown) (no date) (unknown[facility]) Result panel 58 (unknown) (no date) (unknown[facility] Result panel 59 (unknown) (no date) (unknown[facility]) Result panel 60 (unknown) (no date) (unknown[facility] Result panel 61 (unknown) (no date) (unknown[facility]) Result panel 62 (unknown) (no date) (unknown[facility] Result panel 63 (unknown) (no date) (unknown[facility]) Result panel 64 (unknown) (no date) (unknown[facility]) Result panel 65 (unknown) (no date) (unknown[facility]) Result panel 66 (unknown) (no date) (unknown[facility]) Result panel 67 (unknown) (no date) (unknown[facility]) Result panel 68 (unknown) (no date) (unknown[facility] Result panel 69 (unknown) (no date) (unknown[facility] Result panel 70 (unknown) (no date) (unknown[facility]) Result panel 71 (unknown) (no date) (unknown[facility] Result panel 72 (unknown) (no date) (unknown[facility]) Result panel 73 (unknown) (no date) (unknown[facility] Result panel 74 (unknown) (no date) (unknown[facility]) Result panel 75 (unknown) (no date) (unknown[facility]) Result panel 76 (unknown) (no date) (unknown[facility]) Result panel 77 (unknown) (no date) (unknown[facility]) Result panel 78 (unknown) (no date) (unknown[facility] Result panel 79 (unknown) (no date) (unknown[facility]) Result panel 80 (unknown) (no date) (unknown[facility] Result panel 81 (unknown) (no date) (unknown[facility]) Result panel 82 (unknown) (no date) (unknown[facility]) Result panel 83 (unknown) (no date) (unknown[facility]) Result panel 84 (unknown) (no date) (unknown[facility]) Result panel 85 (unknown) (no date) (unknown[facility]) Result panel 86 (unknown) (no date) (unknown[facility] Result panel 87 (unknown) (no date) (unknown[facility] Result panel 88 (unknown) (no date) (unknown[facility]) Result panel 89 (unknown) (no date) (unknown[facility]) Result panel 90 (unknown) (no date) (unknown[facility] Result panel 91 (unknown) (no date) (unknown[facility]) Result panel 92 (unknown) (no date) (unknown[facility] Result panel 93 (unknown) (no date) (unknown[facility]) Result panel 94 (unknown) (no date) (unknown[facility]) Result panel 95 (unknown) (no date) (unknown[facility]) Result panel 96 (unknown) (no date) (unknown[facility]) Result panel 97 (unknown) (no date) (unknown[facility]) Result panel 98 (unknown) (no date) (unknown[facility]) Result panel 99 (unknown) (no date) (unknown[facility]) Result panel 100 (unknown) (no date) (unknown[facility]) Result panel 101 (unknown) (no date) (unknown[facility]) Result panel 102 (unknown) (no date) (unknown[facility]) Result panel 103 (unknown) (no date) (unknown[facility]) Result panel 104 (unknown) (no date) (unknown[facility]) Result panel 105 (unknown) (no date) (unknown[facility]) Result panel 106 (unknown) (no date) (unknown[facility]) Result panel 107 (unknown) (no date) (unknown[facility]) Result panel 108 (unknown) (no date) (unknown[facility]) Result panel 109 (unknown) (no date) (unknown[facility]) Result panel 110 (unknown) (no date) (unknown[facility]) Result panel 111 (unknown) (no date) (unknown[facility]) Result panel 112 (unknown) (no date) (unknown[facility]) Result panel 113 (unknown) (no date) (unknown[facility] Result panel 114 (unknown) (no date) (unknown[facility]) Result panel 115 (unknown) (no date) (unknown[facility]) Result panel 116 (unknown) (no date) (unknown[facility]) Result panel 117 (unknown) (no date) (unknown[facility]) Result panel 118 (unknown) (no date) (unknown[facility]) Result panel 119 (unknown) (no date) (unknown[facility]) Result panel 120 (unknown) (no date) (unknown[facility]) Result panel 121 (unknown) (no date) (unknown[facility]) Result panel 122 (unknown) (no date) (unknown[facility]) Result panel 123 (unknown) (no date) (unknown[facility]) Result panel 124 (unknown) (no date) (unknown[facility]) Result panel 125 (unknown) (no date) (unknown[facility]) Result panel 126 (unknown) (no date) (unknown[facility]) Result panel 127 (unknown) (no date) (unknown[facility]) Result panel 128 (unknown) (no date) (unknown[facility]) Result panel 129 (unknown) (no date) (unknown[facility]) Result panel 130 (unknown) (no date) (unknown[facility]) Result panel 131 (unknown) (no date) (unknown[facility]) Result panel 132 (unknown) (no date) (unknown) [facility]) Result panel 133 (unknown) (no date) (unknown[facility]) Result panel 134 (unknown) (no date) (unknown[facility]) Result panel 135 (unknown) (no date) (unknown[facility]) Result panel 136 (unknown) (no date) (unknown[facility]) Result panel 137 (unknown) (no date) (unknown[facility]) Result panel 138 (unknown) (no date) (unknown[facility]) Result panel 139 (unknown) (no date) (unknown) [facility]) Result panel 140 (unknown) (no date) (unknown[facility]) Result panel 141 (unknown) (no date) (unknown) [facility]) Result panel 142 (unknown) (no date) (unknown) [facility]) Result panel 143 (unknown) (no date) (unknown[facility]) Result panel 144 (unknown) (no date) (unknown[facility]) Result panel 145 (unknown) (no date) (unknown) [facility]) Result panel 146 (unknown) (no date) (unknown[facility]) Result panel 147 (unknown) (no date) (unknown) [facility]) Result panel 148 (unknown) (no date) (unknown) [facility]) Result panel 149 (unknown) (no date) (unknown) [facility]) Result panel 150 (unknown) (no date) (unknown) [facility]) Result panel 151 (unknown) (no date) (unknown) [facility]) Result panel 152 (unknown) (no date) (unknown) [facility]) Result panel 153 (unknown) (no date) (unknown) [facility]) Result panel 154 (unknown) (no date) (unknown) [facility]) Result panel 155 (unknown) (no date) (unknown) [facility]) Result panel 156 (unknown) (no date) (unknown) [facility]) Result panel 157 (unknown) (no date) (unknown) [facility]) Result panel 158 (unknown) (no date) (unknown) [facility]) Result panel 159 (unknown) (no date) (unknown) [facility]) Result panel 160 (unknown) (no date) (unknown) [facility]) Result panel 161 (unknown) (no date) (unknown) [facility]) Result panel 162 (unknown) (no date) (unknown) [facility]) Result panel 163 (unknown) (no date) (unknown) [facility]) Result panel 164 (unknown) (no date) (unknown) [facility]) Result panel 165 (unknown) (no date) (unknown) [facility]) Result panel 166 (unknown) (no date) (unknown) [facility]) Result panel 167 (unknown) (no date) (unknown) [facility]) Result panel 168 (unknown) (no date) (unknown) [facility]) Result panel 169 (unknown) (no date) (unknown) [facility]) Result panel 170 (unknown) (no date) (unknown) [facility]) Result panel 171 (unknown) (no date) (unknown) [facility]) Result panel 172 (unknown) (no date) (unknown) [facility]) Result panel 173 (unknown) (no date) (unknown) [facility]) Result panel 174 (unknown) (no date) (unknown) [facility]) Result panel 175 (unknown) (no date) (unknown) [facility]) Result panel 176 (unknown) (no date) (unknown) [facility]) Result panel 177 (unknown) (no date) (unknown) [facility]) Result panel 178 (unknown) (no date) (unknown) [facility]) Result panel 179 (unknown) (no date) (unknown) [facility]) Result panel 180 (unknown) (no date) (unknown) [facility]) Result panel 181 (unknown) (no date) (unknown) [facility] Result panel 182 (unknown) (no date) (unknown) [facility]) Result panel 183 (unknown) (no date) (unknown[facility] Result panel 184 (unknown) (no date) (unknown[facility]) Result panel 185 (unknown) (no date) (unknown) [facility] Result panel 186 (unknown) (no date) (unknown[facility]) Result panel 187 (unknown) (no date) (unknown) [facility]) Result panel 188 (unknown) (no date) (unknown) [facility]) Result panel 189 (unknown) (no date) (unknown) [facility]) Result panel 190 (unknown) (no date) (unknown) [facility]) Result panel 191 (unknown) (no date) (unknown) [facility]) Result panel 192 (unknown) (no date) (unknown) [facility]) Result panel 193 (unknown) (no date) (unknown) [facility]) Result panel 194 (unknown) (no date) (unknown) [facility]) Result panel 195 (unknown) (no date) (unknown) [facility]) Result panel 196 (unknown) (no date) (unknown) [facility]) Result panel 197 (unknown) (no date) (unknown) [facility]) Result panel 198 (unknown) (no date) (unknown) [facility]) Result panel 199 (unknown) (no date) (unknown[facility]) Result panel 200 (unknown) (no date) (unknown) [facility]) Result panel 201 (unknown) (no date) (unknown) [facility]) Result panel 202 (unknown) (no date) (unknown[facility]) Result panel 203 (unknown) (no date) (unknown) [facility]) Result panel 204 (unknown) (no date) (unknown) [facility] Result panel 205 (unknown) (no date) (unknown) [facility]) Result panel 206 (unknown) (no date) (unknown) [facility]) Result panel 207 (unknown) (no date) (unknown) [facility] [facility] Result panel 208 (unknown) (no date) (unknown) [facility]) Result panel 209 (unknown) (no date) (unknown) [facility]) Result panel 210 (unknown) (no date) (unknown) [facility] Result panel 211 (unknown) (no date) (unknown) [facility]) Result panel 212 (unknown) (no date) (unknown) [facility]) Result panel 213 (unknown) (no date) (unknown) [facility] Result panel 214 (unknown) (no date) (unknown) [facility]) Result panel 215 (unknown) (no date) (unknown) [facility]) Result panel 216 (unknown) (no date) (unknown) [facility]) Result panel 217 (unknown) (no date) (unknown) [facility]) Result panel 218 (unknown) (no date) (unknown) [facility]) Result panel 219 (unknown) (no date) (unknown) [facility]) Result panel 220 (unknown) (no date) (unknown[facility]) Result panel 221 (unknown) (no date) (unknown) [facility]) Result panel 222 (unknown) (no date) (unknown) [facility]) Result panel 223 (unknown) (no date) (unknown) [facility]) Result panel 224 (unknown) (no date) (unknown) [facility]) Result panel 225 (unknown) (no date) (unknown) [facility]) Result panel 226 (unknown) (no date) (unknown) [facility]) Result panel 227 (unknown) (no date) (unknown) [facility]) Result panel 228 (unknown) (no date) (unknown) [facility]) Result panel 229 (unknown) (no date) (unknown) [facility] Result panel 230 (unknown) (no date) (unknown) [facility]) Result panel 231 (unknown) (no date) (unknown[facility]) Result panel 232 (unknown) (no date) (unknown) [facility]) Result panel 233 (unknown) (no date) (unknown) [facility]) Result panel 234 (unknown) (no date) (unknown) [facility]) Result panel 235 (unknown) (no date) (unknown) [facility]) Result panel 236 (unknown) (no date) (unknown) [facility]) Result panel 237 (unknown) (no date) (unknown) [facility]) Result panel 238 (unknown) (no date) (unknown) [facility]) Result panel 239 (unknown) (no date) (unknown) [facility]) Result panel 240 (unknown) (no date) (unknown) [facility]) Result panel 241 (unknown) (no date) (unknown[facility]) Result panel 242 (unknown) (no date) (unknown) [facility]) Result panel 243 (unknown) (no date) (unknown) [facility]) Result panel 244 (unknown) (no date) (unknown) [facility]) Result panel 245 (unknown) (no date) (unknown) [facility] Result panel 246 (unknown) (no date) (unknown) [facility]) Result panel 247 (unknown) (no date) (unknown) [facility]) Result panel 248 (unknown) (no date) (unknown) [facility]) Result panel 249 (unknown) (no date) (unknown) [facility]) Result panel 250 (unknown) (no date) (unknown) [facility]) Result panel 251 (unknown) (no date) (unknown) [facility]) Result panel 252 (unknown) (no date) (unknown) [facility]) Result panel 253 (unknown) (no date) (unknown) [facility]) Result panel 254 (unknown) (no date) (unknown) [facility]) Result panel 255 (unknown) (no date) (unknown) [facility]) Result panel 256 (unknown) (no date) (unknown) [facility]) Result panel 257 (unknown) (no date) (unknown) [facility]) Result panel 258 (unknown) (no date) (unknown) [facility]) Result panel 259 (unknown) (no date) (unknown) [facility]) Result panel 260 (unknown) (no date) (unknown) [facility]) Result panel 261 (unknown) (no date) (unknown) [facility]) Result panel 262 (unknown) (no date) (unknown) [facility]) Result panel 263 (unknown) (no date) (unknown) [facility]) Result panel 264 (unknown) (no date) (unknown) [facility]) Result panel 265 (unknown) (no date) (unknown) [facility]) Result panel 266 (unknown) (no date) (unknown) [facility]) Result panel 267 (unknown) (no date) (unknown) [facility]) Result panel 268 (unknown) (no date) (unknown) [facility]) Result panel 269 (unknown) (no date) (unknown[facility]) Result panel 270 (unknown) (no date) (unknown) [facility]) Result panel 271 (unknown) (no date) (unknown) [facility]) Result panel 272 (unknown) (no date) (unknown) [facility]) Result panel 273 (unknown) (no date) (unknown) [facility]) Result panel 274 (unknown) (no date) (unknown) [facility]) Result panel 275 (unknown) (no date) (unknown) [facility]) Result panel 276 (unknown) (no date) (unknown) [facility]) Result panel 277 (unknown) (no date) (unknown) [facility]) Result panel 278 (unknown) (no date) (unknown) [facility]) Result panel 279 (unknown) (no date) (unknown) [facility]) Result panel 280 (unknown) (no date) (unknown) [facility]) Result panel 281 (unknown) (no date) (unknown) [facility]) Result panel 282 (unknown) (no date) (unknown) [facility]) Result panel 283 (unknown) (no date) (unknown) [facility]) Result panel 284 (unknown) (no date) (unknown) [facility]) Result panel 285 (unknown) (no date) (unknown) [facility]) Result panel 286 (unknown) (no date) (unknown) [facility]) Result panel 287 (unknown) (no date) (unknown) [facility]) Result panel 288 (unknown) (no date) (unknown[facility]) Result panel 289 (unknown) (no date) (unknown) [facility]) Result panel 290 (unknown) (no date) (unknown) [facility]) Result panel 291 (unknown) (no date) (unknown) [facility]) Result panel 292 (unknown) (no date) (unknown) [facility]) Result panel 293 (unknown) (no date) (unknown) [facility]) Result panel 294 (unknown) (no date) (unknown) [facility]) Result panel 295 (unknown) (no date) (unknown) [facility]) Result panel 296 (unknown) (no date) (unknown) [facility]) Result panel 297 (unknown) (no date) (unknown) [facility]) Result panel 298 (unknown) (no date) (unknown) [facility]) Result panel 299 (unknown) (no date) (unknown) [facility]) Result panel 300 (unknown) (no date) (unknown) [facility]) Result panel 301 (unknown) (no date) (unknown) [facility]) Result panel 302 (unknown) (no date) (unknown) [facility]) Result panel 303 (unknown) (no date) (unknown) [facility]) Result panel 304 (unknown) (no date) (unknown) [facility]) Result panel 305 (unknown) (no date) (unknown) [facility]) Result panel 306 (unknown) (no date) (unknown) [facility]) Result panel 307 (unknown) (no date) (unknown) [facility]) Result panel 308 (unknown) (no date) (unknown) [facility]) Result panel 309 (unknown) (no date) (unknown) [facility]) Result panel 310 (unknown) (no date) (unknown) [facility]) Result panel 311 (unknown) (no date) (unknown) [facility]) Result panel 312 (unknown) (no date) (unknown) [facility]) Result panel 313 (unknown) (no date) (unknown) [facility]) Result panel 314 (unknown) (no date) (unknown) [facility]) Result panel 315 (unknown) (no date) (unknown) [facility]) Result panel 316 (unknown) (no date) (unknown) [facility]) Result panel 317 (unknown) (no date) (unknown) [facility]) Result panel 318 (unknown) (no date) (unknown[facility]) Result panel 319 (unknown) (no date) (unknown) [facility]) Result panel 320 (unknown) (no date) (unknown) [facility]) Result panel 321 (unknown) (no date) (unknown) [facility]) Result panel 322 (unknown) (no date) (unknown) [facility]) Result panel 323 (unknown) (no date) (unknown) [facility]) Result panel 324 (unknown) (no date) (unknown) [facility]) Result panel 325 (unknown) (no date) (unknown) [facility]) Result panel 326 (unknown) (no date) (unknown) [facility]) Result panel 327 (unknown) (no date) (unknown) [facility]) Result panel 328 (unknown) (no date) (unknown) [facility]) Result panel 329 (unknown) (no date) (unknown) [facility]) Result panel 330 (unknown) (no date) (unknown) [facility]) Result panel 331 (unknown) (no date) (unknown) [facility]) Result panel 332 (unknown) (no date) (unknown) [facility]) Result panel 333 (unknown) (no date) (unknown) [facility]) Result panel 334 (unknown) (no date) (unknown) [facility]) Result panel 335 (unknown) (no date) (unknown) [facility]) Result panel 336 (unknown) (no date) (unknown) [facility]) Result panel 337 (unknown) (no date) (unknown) [facility]) Result panel 338 (unknown) (no date) (unknown) [facility]) Result panel 339 (unknown) (no date) (unknown) [facility]) Result panel 340 (unknown) (no date) (unknown) [facility]) Result panel 341 (unknown) (no date) (unknown) [facility]) Result panel 342 (unknown) (no date) (unknown) [facility]) Result panel 343 (unknown) (no date) (unknown) [facility]) Result panel 344 (unknown) (no date) (unknown) [facility]) Result panel 345 (unknown) (no date) (unknown) [facility]) Result panel 346 (unknown) (no date) (unknown) [facility]) Result panel 347 (unknown) (no date) (unknown) [facility]) Result panel 348 (unknown) (no date) (unknown) [facility]) Result panel 349 (unknown) (no date) (unknown) [facility]) Result panel 350 (unknown) (no date) (unknown) [facility]) Result panel 351 (unknown) (no date) (unknown) [facility]) Result panel 352 (unknown) (no date) (unknown) [facility]) Result panel 353 (unknown) (no date) (unknown) [facility]) Result panel 354 (unknown) (no date) (unknown) [facility]) Result panel 355 (unknown) (no date) (unknown) [facility]) Result panel 356 (unknown) (no date) (unknown) [facility]) Result panel 357 (unknown) (no date) (unknown) [facility]) Result panel 358 (unknown) (no date) (unknown) [facility]) Result panel 359 (unknown) (no date) (unknown) [facility]) Result panel 360 (unknown) (no date) (unknown) [facility]) Result panel 361 (unknown) (no date) (unknown) [facility]) Result panel 362 (unknown) (no date) (unknown) [facility]) Result panel 363 (unknown) (no date) (unknown) [facility]) Result panel 364 (unknown) (no date) (unknown) [facility]) Result panel 365 (unknown) (no date) (unknown) [facility]) Result panel 366 (unknown) (no date) (unknown) [facility]) Result panel 367 (unknown) (no date) (unknown) [facility]) Result panel 368 (unknown) (no date) (unknown) [facility]) Result panel 369 (unknown) (no date) (unknown) [facility]) Result panel 370 (unknown) (no date) (unknown) [facility]) Result panel 371 (unknown) (no date) (unknown) [facility]) Result panel 372 (unknown) (no date) (unknown) [facility]) Result panel 373 (unknown) (no date) (unknown) [facility]) Result panel 374 (unknown) (no date) (unknown) [facility]) Result panel 375 (unknown) (no date) (unknown) [facility]) Result panel 376 (unknown) (no date) (unknown) [facility]) Result panel 377 (unknown) (no date) (unknown) [facility]) Result panel 378 (unknown) (no date) (unknown) [facility]) Result panel 379 (unknown) (no date) (unknown) [facility]) Result panel 380 (unknown) (no date) (unknown) [facility]) Result panel 381 (unknown) (no date) (unknown) [facility]) Result panel 382 (unknown) (no date) (unknown) [facility]) Result panel 383 (unknown) (no date) (unknown) [facility]) Result panel 384 (unknown) (no date) (unknown) [facility]) Result panel 385 (unknown) (no date) (unknown) [facility]) Result panel 386 (unknown) (no date) (unknown) [facility]) Result panel 387 (unknown) (no date) (unknown[facility]) Result panel 388 (unknown) (no date) (unknown[facility]) Result panel 389 (unknown) (no date) (unknown) [facility]) Result panel 390 (unknown) (no date) (unknown) [facility]) Result panel 391 (unknown) (no date) (unknown) [facility]) Result panel 392 (unknown) (no date) (unknown) [facility]) Result panel 393 (unknown) (no date) (unknown) [facility]) Result panel 394 (unknown) (no date) (unknown) [facility]) Result panel 395 (unknown) (no date) (unknown) [facility]) Result panel 396 (unknown) (no date) (unknown) [facility]) Result panel 397 (unknown) (no date) (unknown) [facility]) Result panel 398 (unknown) (no date) (unknown[facility]) Result panel 399 (unknown) (no date) (unknown) [facility]) Result panel 400 (unknown) (no date) (unknown) [facility]) Result panel 401 (unknown) (no date) (unknown) [facility]) Result panel 402 (unknown) (no date) (unknown) [facility]) Result panel 403 (unknown) (no date) (unknown) [facility]) Result panel 404 (unknown) (no date) (unknown) [facility]) Result panel 405 (unknown) (no date) (unknown) [facility]) Result panel 406 (unknown) (no date) (unknown) [facility]) Result panel 407 (unknown) (no date) (unknown) [facility]) Result panel 408 (unknown) (no date) (unknown) [facility]) Result panel 409 (unknown) (no date) (unknown) [facility]) Result panel 410 (unknown) (no date) (unknown) [facility]) Result panel 411 (unknown) (no date) (unknown) [facility]) Result panel 412 (unknown) (no date) (unknown) [facility]) Result panel 413 (unknown) (no date) (unknown) [facility]) Result panel 414 (unknown) (no date) (unknown) [facility]) Result panel 415 (unknown) (no date) (unknown) [facility]) Result panel 416 (unknown) (no date) (unknown) [facility]) Result panel 417 (unknown) (no date) (unknown) [facility]) Result panel 418 (unknown) (no date) (unknown[facility]) Result panel 419 (unknown) (no date) (unknown) [facility]) Result panel 420 (unknown) (no date) (unknown) [facility]) Result panel 421 (unknown) (no date) (unknown) [facility]) Result panel 422 (unknown) (no date) (unknown) [facility]) Result panel 423 (unknown) (no date) (unknown) [facility]) Result panel 424 (unknown) (no date) (unknown) [facility]) Result panel 425 (unknown) (no date) (unknown) [facility]) Result panel 426 (unknown) (no date) (unknown) [facility]) Result panel 427 (unknown) (no date) (unknown) [facility]) Result panel 428 (unknown) (no date) (unknown) [facility]) Result panel 429 (unknown) (no date) (unknown) [facility]) Result panel 430 (unknown) (no date) (unknown) [facility]) Result panel 431 (unknown) (no date) (unknown) [facility]) Result panel 432 (unknown) (no date) (unknown) [facility]) Result panel 433 (unknown) (no date) (unknown[facility]) Result panel 434 (unknown) (no date) (unknown) [facility]) Result panel 435 (unknown) (no date) (unknown) [facility]) Result panel 436 (unknown) (no date) (unknown) [facility]) Result panel 437 (unknown) (no date) (unknown) [facility]) Result panel 438 (unknown) (no date) (unknown) [facility]) Result panel 439 (unknown) (no date) (unknown) [facility]) Result panel 440 (unknown) (no date) (unknown) [facility]) Result panel 441 (unknown) (no date) (unknown) [facility]) Result panel 442 (unknown) (no date) (unknown) [facility]) Result panel 443 (unknown) (no date) (unknown) [facility]) Result panel 444 (unknown) (no date) (unknown) [facility]) Result panel 445 (unknown) (no date) [facility]) Result panel 446 (unknown) (no date) (unknown) [facility] Result panel 447 (unknown) (no date) (unknown) [facility]) Result panel 448 (unknown) (no date) (unknown) [facility] Result panel 449 (unknown) (no date) (unknown) [facility]) Result panel 450 (unknown) (no date) (unknown) [facility] Result panel 451 (unknown) (no date) (unknown) [facility]) Result panel 452 (unknown) (no date) (unknown) [facility] Result panel 453 (unknown) (no date) (unknown[facility] Result panel 454 (unknown) (no date) (unknown[facility] Result panel 455 (unknown) (no date) (unknown[facility] Result panel 456 (unknown) (no date) (unknown) [facility] Result panel 457 (unknown) (no date) (unknown) [facility] Result panel 458 (unknown) (no date) (unknown) [facility] Result panel 459 (unknown) (no date) (unknown) [facility] Result panel 460 (unknown) (no date) (unknown[facility]) Result panel 461 (unknown) (no date) (unknown) [facility] Result panel 462 (unknown) (no date) (unknown) [facility]) Result panel 463 (unknown) (no date) (unknown) [facility] Result panel 464 (unknown) (no date) (unknown[facility]) Result panel 465 (unknown) (no date) (unknown) [facility] Result panel 466 (unknown) (no date) (unknown) [facility]) Result panel 467 (unknown) (no date) (unknown) [facility] Result panel 468 (unknown) (no date) (unknown[facility]) Result panel 469 (unknown) (no date) (unknown[facility] Result panel 470 (unknown) (no date) (unknown) [facility]) Result panel 471 (unknown) (no date) (unknown[facility] Result panel 472 (unknown) (no date) (unknown) [facility]) Result panel 473 (unknown) (no date) (unknown[facility]) Result panel 474 (unknown) (no date) (unknown) [facility]) Result panel 475 (unknown) (no date) (unknown) [facility]) Result panel 476 (unknown) (no date) (unknown) [facility]) Result panel 477 (unknown) (no date) (unknown[facility]) Result panel 478 (unknown) (no date) (unknown) [facility]) Result panel 479 (unknown) (no date) (unknown) [facility]) Result panel 480 (unknown) (no date) (unknown) [facility]) Result panel 481 (unknown) (no date) (unknown) [facility]) Result panel 482 (unknown) (no date) (unknown) [facility]) Result panel 483 (unknown) (no date) (unknown) [facility]) Result panel 484 (unknown) (no date) (unknown) [facility]) Result panel 485 (unknown) (no date) (unknown) [facility]) Result panel 486 (unknown) (no date) (unknown) [facility]) Result panel 487 (unknown) (no date) (unknown) [facility]) Result panel 488 (unknown) (no date) (unknown) [facility] Result panel 489 (unknown) (no date) (unknown) [facility]) Result panel 490 (unknown) (no date) (unknown) [facility]) Result panel 491 (unknown) (no date) (unknown) [facility] Result panel 492 (unknown) (no date) (unknown) [facility]) Result panel 493 (unknown) (no date) (unknown) [facility]) Result panel 494 (unknown) (no date) (unknown) [facility]) Result panel 495 (unknown) (no date) (unknown) [facility]) Result panel 496 (unknown) (no date) (unknown) [facility]) Result panel 497 (unknown) (no date) (unknown) [facility] Result panel 498 (unknown) (no date) (unknown) [facility]) Result panel 499 (unknown) (no date) (unknown) [facility]) Result panel 500 (unknown) (no date) (unknown) [facility]) Result panel 501 (unknown) (no date) (unknown) [facility]) Result panel 502 (unknown) (no date) (unknown) [facility]) Result panel 503 (unknown) (no date) (unknown) [facility]) Result panel 504 (unknown) (no date) (unknown) [facility]) Result panel 505 (unknown) (no date) (unknown) [facility] Result panel 506 (unknown) (no date) (unknown) [facility]) Result panel 507 (unknown) (no date) (unknown) [facility]) Result panel 508 (unknown) (no date) (unknown) [facility]) Result panel 509 (unknown) (no date) (unknown) [facility]) Result panel 510 (unknown) (no date) (unknown) [facility]) Result panel 511 (unknown) (no date) (unknown) [facility]) Result panel 512 (unknown) (no date) (unknown) [facility]) Result panel 513 (unknown) (no date) (unknown) [facility]) Result panel 514 (unknown) (no date) (unknown) [facility]) Result panel 515 (unknown) (no date) (unknown) [facility]) Result panel 516 (unknown) (no date) (unknown) [facility]) Result panel 517 (unknown) (no date) (unknown) [facility]) Result panel 518 (unknown) (no date) (unknown) [facility] Result panel 519 (unknown) (no date) (unknown) [facility]) Result panel 520 (unknown) (no date) (unknown) [facility]) Result panel 521 (unknown) (no date) (unknown) [facility]) Result panel 522 (unknown) (no date) (unknown) [facility]) Result panel 523 (unknown) (no date) (unknown) [facility]) Result panel 524 (unknown) (no date) (unknown) [facility]) Result panel 525 (unknown) (no date) (unknown) [facility]) Result panel 526 (unknown) (no date) (unknown) [facility]) Result panel 527 (unknown) (no date) (unknown) [facility]) Result panel 528 (unknown) (no date) (unknown) [facility]) Result panel 529 (unknown) (no date) (unknown) [facility]) Result panel 530 (unknown) (no date) (unknown) [facility]) Result panel 531 (unknown) (no date) (unknown) [facility]) Result panel 532 (unknown) (no date) (unknown) [facility]) Result panel 533 (unknown) (no date) (unknown) [facility]) Result panel 534 (unknown) (no date) (unknown) [facility]) Result panel 535 (unknown) (no date) (unknown) [facility]) Result panel 536 (unknown) (no date) (unknown) [facility]) Result panel 537 (unknown) (no date) (unknown) [facility]) Result panel 538 (unknown) (no date) (unknown) [facility]) Result panel 539 (unknown) (no date) (unknown) [facility]) Result panel 540 (unknown) (no date) (unknown) [facility]) Result panel 541 (unknown) (no date) (unknown) [facility]) Result panel 542 (unknown) (no date) (unknown) [facility]) Result panel 543 (unknown) (no date) (unknown) [facility]) Result panel 544 (unknown) (no date) (unknown) [facility]) Result panel 545 (unknown) (no date) (unknown) [facility]) Result panel 546 (unknown) (no date) (unknown) [facility]) Result panel 547 (unknown) (no date) (unknown) [facility]) Result panel 548 (unknown) (no date) (unknown) [facility] Result panel 549 (unknown) (no date) (unknown[facility]) Result panel 550 (unknown) (no date) (unknown) [facility]) Result panel 551 (unknown) (no date) (unknown) [facility] Result panel 552 (unknown) (no date) (unknown) [facility]) Result panel 553 (unknown) (no date) (unknown) [facility]) Result panel 554 (unknown) (no date) (unknown) [facility]) Result panel 555 (unknown) (no date) (unknown) [facility]) Result panel 556 (unknown) (no date) (unknown) [facility]) Result panel 557 (unknown) (no date) (unknown) [facility]) Result panel 558 (unknown) (no date) (unknown) [facility]) Result panel 559 (unknown) (no date) (unknown) [facility]) Result panel 560 (unknown) (no date) (unknown) [facility]) Result panel 561 (unknown) (no date) (unknown) [facility]) Result panel 562 (unknown) (no date) (unknown) [facility]) Result panel 563 (unknown) (no date) (unknown) [facility]) Result panel 564 (unknown) (no date) (unknown) [facility]) Result panel 565 (unknown) (no date) (unknown) [facility]) Result panel 566 (unknown) (no date) (unknown) [facility]) Result panel 567 (unknown) (no date) (unknown) [facility]) Result panel 568 (unknown) (no date) (unknown) [facility]) Result panel 569 (unknown) (no date) (unknown) [facility]) Result panel 570 (unknown) (no date) (unknown) [facility]) Result panel 571 (unknown) (no date) (unknown) [facility]) Result panel 572 (unknown) (no date) (unknown) [facility]) Result panel 573 (unknown) (no date) (unknown) [facility]) Result panel 574 (unknown) (no date) (unknown) [facility]) Result panel 575 (unknown) (no date) (unknown) [facility]) Result panel 576 (unknown) (no date) (unknown) [facility]) Result panel 577 (unknown) (no date) (unknown) [facility]) Result panel 578 (unknown) (no date) (unknown) [facility]) Result panel 579 (unknown) (no date) (unknown) [facility]) Result panel 580 (unknown) (no date) (unknown) [facility]) Result panel 581 (unknown) (no date) (unknown) [facility]) Result panel 582 (unknown) (no date) (unknown) [facility]) Result panel 583 (unknown) (no date) (unknown) [facility]) Result panel 584 (unknown) (no date) (unknown) [facility]) Result panel 585 (unknown) (no date) (unknown) [facility]) Result panel 586 (unknown) (no date) (unknown) [facility]) Result panel 587 (unknown) (no date) (unknown) [facility]) Result panel 588 (unknown) (no date) (unknown) [facility]) Result panel 589 (unknown) (no date) (unknown) [facility]) Result panel 590 (unknown) (no date) (unknown) [facility]) Result panel 591 (unknown) (no date) (unknown) [facility]) Result panel 592 (unknown) (no date) (unknown) [facility]) Result panel 593 (unknown) (no date) (unknown) [facility]) Result panel 594 (unknown) (no date) (unknown) [facility]) Result panel 595 (unknown) (no date) (unknown) [facility]) Result panel 596 (unknown) (no date) (unknown) [facility]) Result panel 597 (unknown) (no date) (unknown) [facility]) Result panel 598 (unknown) (no date) (unknown) [facility]) Result panel 599 (unknown) (no date) (unknown) [facility]) Result panel 600 (unknown) (no date) (unknown) [facility]) Result panel 601 (unknown) (no date) (unknown) [facility]) Result panel 602 (unknown) (no date) (unknown) [facility]) Result panel 603 (unknown) (no date) (unknown) [facility]) Result panel 604 (unknown) (no date) (unknown) [facility]) Result panel 605 (unknown) (no date) (unknown[facility]) Result panel 606 (unknown) (no date) (unknown) [facility]) Result panel 607 (unknown) (no date) (unknown) [facility]) Result panel 608 (unknown) (no date) (unknown) [facility]) Result panel 609 (unknown) (no date) (unknown) [facility]) Result panel 610 (unknown) (no date) (unknown) [facility]) Result panel 611 (unknown) (no date) (unknown) [facility]) Result panel 612 (unknown) (no date) (unknown) [facility]) Result panel 613 (unknown) (no date) (unknown) [facility]) Result panel 614 (unknown) (no date) (unknown) [facility]) Result panel 615 (unknown) (no date) (unknown) [facility]) Result panel 616 (unknown) (no date) (unknown) [facility]) Result panel 617 (unknown) (no date) (unknown) [facility]) Result panel 618 (unknown) (no date) (unknown) [facility]) Result panel 619 (unknown) (no date) (unknown) [facility]) Result panel 620 (unknown) (no date) (unknown) [facility]) Result panel 621 (unknown) (no date) (unknown) [facility]) Result panel 622 (unknown) (no date) (unknown) [facility]) Result panel 623 (unknown) (no date) (unknown) [facility]) Result panel 624 (unknown) (no date) (unknown) [facility]) Result panel 625 (unknown) (no date) (unknown) [facility]) Result panel 626 (unknown) (no date) (unknown) [facility]) Result panel 627 (unknown) (no date) (unknown) [facility]) Result panel 628 (unknown) (no date) (unknown) [facility]) Result panel 629 (unknown) (no date) (unknown) [facility]) Result panel 630 (unknown) (no date) (unknown) [facility]) Result panel 631 (unknown) (no date) (unknown) [facility]) Result panel 632 (unknown) (no date) (unknown) [facility]) Result panel 633 (unknown) (no date) (unknown) [facility]) Result panel 634 (unknown) (no date) (unknown) [facility]) Result panel 635 (unknown) (no date) (unknown) [facility]) Result panel 636 (unknown) (no date) (unknown) [facility]) Result panel 637 (unknown) (no date) (unknown) [facility]) Result panel 638 (unknown) (no date) (unknown) [facility]) Result panel 639 (unknown) (no date) (unknown) [facility]) Result panel 640 (unknown) (no date) (unknown) [facility]) Result panel 641 (unknown) (no date) (unknown) [facility]) Result panel 642 (unknown) (no date) (unknown) [facility]) Result panel 643 (unknown) (no date) (unknown) [facility]) Result panel 644 (unknown) (no date) (unknown) [facility]) Result panel 645 (unknown) (no date) (unknown) [facility]) Result panel 646 (unknown) (no date) (unknown) [facility]) Result panel 647 (unknown) (no date) (unknown) [facility]) Result panel 648 (unknown) (no date) (unknown) [facility]) Result panel 649 (unknown) (no date) (unknown) [facility]) Result panel 650 (unknown) (no date) (unknown) [facility]) Result panel 651 (unknown) (no date) (unknown) [facility]) Result panel 652 (unknown) (no date) (unknown) [facility]) Result panel 653 (unknown) (no date) (unknown) [facility]) Result panel 654 (unknown) (no date) (unknown) [facility]) Result panel 655 (unknown) (no date) (unknown) [facility]) Result panel 656 (unknown) (no date) (unknown) [facility]) Result panel 657 (unknown) (no date) (unknown) [facility]) Result panel 658 (unknown) (no date) (unknown) [facility]) Result panel 659 (unknown) (no date) (unknown) [facility]) Result panel 660 (unknown) (no date) (unknown) [facility]) Result panel 661 (unknown) (no date) (unknown) [facility]) Result panel 662 (unknown) (no date) (unknown) [facility]) Result panel 663 (unknown) (no date) (unknown) [facility]) Result panel 664 (unknown) (no date) (unknown) [facility]) Result panel 665 (unknown) (no date) (unknown) [facility]) Result panel 666 (unknown) (no date) (unknown) [facility]) Result panel 667 (unknown) (no date) (unknown) [facility]) Result panel 668 (unknown) (no date) (unknown) [facility]) Result panel 669 (unknown) (no date) (unknown) [facility]) Result panel 670 (unknown) (no date) (unknown) [facility]) Result panel 671 (unknown) (no date) (unknown) [facility]) Result panel 672 (unknown) (no date) (unknown) [facility]) Result panel 673 (unknown) (no date) (unknown) [facility]) Result panel 674 (unknown) (no date) (unknown) [facility]) Result panel 675 (unknown) (no date) (unknown) [facility]) Result panel 676 (unknown) (no date) (unknown) [facility]) Result panel 677 (unknown) (no date) (unknown) [facility]) Result panel 678 (unknown) (no date) (unknown) [facility]) Result panel 679 (unknown) (no date) (unknown) [facility]) Result panel 680 (unknown) (no date) (unknown) [facility]) Result panel 681 (unknown) (no date) (unknown) [facility] Result panel 682 (unknown) (no date) (unknown) [facility] unknown) Result panel 683 (unknown) (no date) (unknown) [facility]) Result panel 684 (unknown) (no date) (unknown) [facility]) Result panel 685 (unknown) (no date) (unknown) [facility] Result panel 686 (unknown) (no date) (unknown) [facility]) Result panel 687 (unknown) (no date) (unknown) [facility]) Result panel 688 (unknown) (no date) (unknown) [facility]) Result panel 689 (unknown) (no date) (unknown) [facility]) Result panel 690 (unknown) (no date) (unknown) [facility]) Result panel 691 (unknown) (no date) (unknown) [facility]) Result panel 692 (unknown) (no date) (unknown) [facility]) Result panel 693 (unknown) (no date) (unknown) [facility]) Result panel 694 (unknown) (no date) (unknown) [facility]) Result panel 695 (unknown) (no date) (unknown) [facility]) Result panel 696 (unknown) (no date) (unknown) [facility]) Result panel 697 (unknown) (no date) (unknown) [facility]) Result panel 698 (unknown) (no date) (unknown) [facility]) Result panel 699 (unknown) (no date) (unknown) [facility]) Result panel 700 (unknown) (no date) (unknown) [facility]) Result panel 701 (unknown) (no date) (unknown) [facility]) Result panel 702 (unknown) (no date) (unknown) [facility]) Result panel 703 (unknown) (no date) (unknown) [facility]) Result panel 704 (unknown) (no date) (unknown) [facility]) Result panel 705 (unknown) (no date) (unknown) [facility]) Result panel 706 (unknown) (no date) (unknown) [facility]) Result panel 707 (unknown) (no date) (unknown) [facility]) Result panel 708 (unknown) (no date) (unknown) [facility]) Result panel 709 (unknown) (no date) (unknown) [facility]) Result panel 710 (unknown) (no date) (unknown) [facility]) Result panel 711 (unknown) (no date) (unknown) [facility]) Result panel 712 (unknown) (no date) (unknown) [facility]) Result panel 713 (unknown) (no date) (unknown) [facility]) Result panel 714 (unknown) (no date) (unknown) [facility]) Result panel 715 (unknown) (no date) (unknown) [facility]) Result panel 716 (unknown) (no date) (unknown) [facility]) Result panel 717 (unknown) (no date) (unknown) [facility]) Result panel 718 (unknown) (no date) (unknown) [facility]) Result panel 719 (unknown) (no date) (unknown) [facility]) Result panel 720 (unknown) (no date) (unknown) [facility]) Result panel 721 (unknown) (no date) (unknown) [facility]) Result panel 722 (unknown) (no date) (unknown) [facility]) Result panel 723 (unknown) (no date) (unknown) [facility]) Result panel 724 (unknown) (no date) (unknown) [facility]) Result panel 725 (unknown) (no date) (unknown) [facility]) Result panel 726 (unknown) (no date) (unknown) [facility]) Result panel 727 (unknown) (no date) (unknown) [facility]) Result panel 728 (unknown) (no date) (unknown) [facility]) Result panel 729 (unknown) (no date) (unknown) [facility]) Result panel 730 (unknown) (no date) (unknown) [facility]) Result panel 731 (unknown) (no date) (unknown) [facility]) Result panel 732 (unknown) (no date) (unknown) [facility]) Result panel 733 (unknown) (no date) (unknown) [facility]) Result panel 734 (unknown) (no date) (unknown) [facility]) Result panel 735 (unknown) (no date) (unknown) [facility]) Result panel 736 (unknown) (no date) (unknown) [facility]) Result panel 737 (unknown) (no date) (unknown) [facility]) Result panel 738 (unknown) (no date) (unknown) [facility]) Result panel 739 (unknown) (no date) (unknown) [facility]) Result panel 740 (unknown) (no date) (unknown) [facility]) Result panel 741 (unknown) (no date) (unknown) [facility]) Result panel 742 (unknown) (no date) (unknown) [facility]) Result panel 743 (unknown) (no date) (unknown) [facility]) Result panel 744 (unknown) (no date) (unknown) [facility]) Result panel 745 (unknown) (no date) (unknown) [facility]) Result panel 746 (unknown) (no date) (unknown) [facility]) Result panel 747 (unknown) (no date) (unknown) [facility]) Result panel 748 (unknown) (no date) (unknown) [facility]) Result panel 749 (unknown) (no date) (unknown) [facility]) Result panel 750 (unknown) (no date) (unknown) [facility]) Result panel 751 (unknown) (no date) (unknown) [facility]) Result panel 752 (unknown) (no date) (unknown) [facility]) Result panel 753 (unknown) (no date) (unknown) [facility]) Result panel 754 (unknown) (no date) (unknown) [facility]) Result panel 755 (unknown) (no date) (unknown) [facility]) Result panel 756 (unknown) (no date) (unknown) [facility]) Result panel 757 (unknown) (no date) (unknown) [facility]) Result panel 758 (unknown) (no date) (unknown) [facility]) Result panel 759 (unknown) (no date) (unknown) [facility]) Result panel 760 (unknown) (no date) (unknown) [facility]) Result panel 761 (unknown) (no date) (unknown) [facility]) Result panel 762 (unknown) (no date) (unknown) [facility]) Result panel 763 (unknown) (no date) (unknown) [facility]) Result panel 764 (unknown) (no date) (unknown) [facility]) Result panel 765 (unknown) (no date) (unknown) [facility]) Result panel 766 (unknown) (no date) (unknown) [facility]) Result panel 767 (unknown) (no date) (unknown) [facility]) Result panel 768 (unknown) (no date) (unknown) [facility]) Result panel 769 (unknown) (no date) (unknown) [facility]) Result panel 770 (unknown) (no date) (unknown) [facility]) Result panel 771 (unknown) (no date) (unknown) [facility]) Result panel 772 (unknown) (no date) (unknown) [facility]) Result panel 773 (unknown) (no date) (unknown) [facility]) Result panel 774 (unknown) (no date) (unknown) [facility]) Result panel 775 (unknown) (no date) (unknown) [facility]) Result panel 776 (unknown) (no date) (unknown) [facility]) Result panel 777 (unknown) (no date) (unknown) [facility]) Result panel 778 (unknown) (no date) (unknown) [facility]) Result panel 779 (unknown) (no date) (unknown) [facility]) Result panel 780 (unknown) (no date) (unknown) [facility]) Result panel 781 (unknown) (no date) (unknown) [facility]) Result panel 782 (unknown) (no date) (unknown) [facility]) Result panel 783 (unknown) (no date) (unknown) [facility]) Result panel 784 (unknown) (no date) (unknown) [facility]) Result panel 785 (unknown) (no date) (unknown) [facility]) Result panel 786 (unknown) (no date) (unknown) [facility]) Result panel 787 (unknown) (no date) (unknown) [facility]) Result panel 788 (unknown) (no date) (unknown) [facility]) Result panel 789 (unknown) (no date) (unknown) [facility]) Result panel 790 (unknown) (no date) (unknown) [facility]) Result panel 791 (unknown) (no date) (unknown) [facility]) Result panel 792 (unknown) (no date) (unknown) [facility]) Result panel 793 (unknown) (no date) (unknown) [facility]) Result panel 794 (unknown) (no date) (unknown) [facility]) Result panel 795 (unknown) (no date) (unknown) [facility]) Result panel 796 (unknown) (no date) (unknown) [facility]) Result panel 797 (unknown) (no date) (unknown) [facility]) Result panel 798 (unknown) (no date) (unknown) [facility]) Result panel 799 (unknown) (no date) (unknown) [facility]) Result panel 800 (unknown) (no date) (unknown) [facility]) Result panel 801 (unknown) (no date) (unknown) [facility]) Result panel 802 (unknown) (no date) (unknown) [facility]) Result panel 803 (unknown) (no date) (unknown) [facility]) Result panel 804 (unknown) (no date) (unknown) [facility]) Result panel 805 (unknown) (no date) (unknown) [facility]) Result panel 806 (unknown) (no date) (unknown) [facility]) Result panel 807 (unknown) (no date) (unknown) [facility]) Result panel 808 (unknown) (no date) (unknown) [facility]) Result panel 809 (unknown) (no date) (unknown) [facility]) Result panel 810 (unknown) (no date) (unknown) [facility]) Result panel 811 (unknown) (no date) (unknown) [facility]) Result panel 812 (unknown) (no date) (unknown) [facility]) Result panel 813 (unknown) (no date) (unknown) [facility]) Result panel 814 (unknown) (no date) (unknown) [facility]) Result panel 815 (unknown) (no date) (unknown) [facility]) Result panel 816 (unknown) (no date) (unknown) [facility]) Result panel 817 (unknown) (no date) (unknown) [facility]) Result panel 818 (unknown) (no date) (unknown) [facility]) Result panel 819 (unknown) (no date) (unknown) [facility]) Result panel 820 (unknown) (no date) (unknown) [facility]) Result panel 821 (unknown) (no date) (unknown) [facility]) Result panel 822 (unknown) (no date) (unknown) [facility]) Result panel 823 (unknown) (no date) (unknown) [facility]) Result panel 824 (unknown) (no date) (unknown) [facility]) Result panel 825 (unknown) (no date) (unknown) [facility]) Result panel 826 (unknown) (no date) (unknown) [facility]) Result panel 827 (unknown) (no date) (unknown) [facility]) Result panel 828 (unknown) (no date) (unknown) [facility]) Result panel 829 (unknown) (no date) (unknown) [facility]) Result panel 830 (unknown) (no date) (unknown) [facility]) Result panel 831 (unknown) (no date) (unknown) [facility]) Result panel 832 (unknown) (no date) (unknown) [facility]) Result panel 833 (unknown) (no date) (unknown) [facility]) Result panel 834 (unknown) (no date) (unknown) [facility]) Result panel 835 (unknown) (no date) (unknown) [facility]) Result panel 836 (unknown) (no date) (unknown) [facility]) Result panel 837 (unknown) (no date) (unknown) [facility]) Result panel 838 (unknown) (no date) (unknown) [facility]) Result panel 839 (unknown) (no date) (unknown) [facility]) Result panel 840 (unknown) (no date) (unknown) [facility]) Result panel 841 (unknown) (no date) (unknown) [facility]) Result panel 842 (unknown) (no date) (unknown) [facility]) Result panel 843 (unknown) (no date) (unknown) [facility]) Result panel 844 (unknown) (no date) (unknown) [facility]) Result panel 845 (unknown) (no date) (unknown) [facility]) Result panel 846 (unknown) (no date) (unknown) [facility]) Result panel 847 (unknown) (no date) (unknown) [facility]) Result panel 848 (unknown) (no date) (unknown) [facility]) Result panel 849 (unknown) (no date) (unknown) [facility]) Result panel 850 (unknown) (no date) (unknown) [facility]) Result panel 851 (unknown) (no date) (unknown) [facility]) Result panel 852 (unknown) (no date) (unknown) [facility]) Result panel 853 (unknown) (no date) (unknown) [facility]) Result panel 854 (unknown) (no date) (unknown) [facility]) Result panel 855 (unknown) (no date) (unknown) [facility]) Result panel 856 (unknown) (no date) (unknown) [facility]) Result panel 857 (unknown) (no date) (unknown) [facility]) Result panel 858 (unknown) (no date) (unknown) [facility]) Result panel 859 (unknown) (no date) (unknown) [facility]) Result panel 860 (unknown) (no date) (unknown) [facility]) Result panel 861 (unknown) (no date) (unknown) [facility]) Result panel 862 (unknown) (no date) (unknown) [facility]) Result panel 863 (unknown) (no date) (unknown) [facility]) Result panel 864 (unknown) (no date) (unknown) [facility]) Result panel 865 (unknown) (no date) (unknown) [facility]) Result panel 866 (unknown) (no date) (unknown) [facility]) Result panel 867 (unknown) (no date) (unknown) [facility]) Result panel 868 (unknown) (no date) (unknown) [facility]) Result panel 869 (unknown) (no date) (unknown) [facility]) Result panel 870 (unknown) (no date) (unknown) [facility]) Result panel 871 (unknown) (no date) (unknown) [facility]) Result panel 872 (unknown) (no date) (unknown) [facility]) Result panel 873 (unknown) (no date) (unknown) [facility]) Result panel 874 (unknown) (no date) (unknown) [facility]) Result panel 875 (unknown) (no date) (unknown) [facility]) Result panel 876 (unknown) (no date) (unknown) [facility]) Result panel 877 (unknown) (no date) (unknown) [facility]) Result panel 878 (unknown) (no date) (unknown) [facility]) Result panel 879 (unknown) (no date) (unknown) [facility]) Result panel 880 (unknown) (no date) (unknown) [facility]) Result panel 881 (unknown) (no date) (unknown) [facility]) Result panel 882 (unknown) (no date) (unknown) [facility]) Result panel 883 (unknown) (no date) (unknown) [facility]) Result panel 884 (unknown) (no date) (unknown) [facility]) Result panel 885 (unknown) (no date) (unknown) [facility]) Result panel 886 (unknown) (no date) (unknown) [facility]) Result panel 887 (unknown) (no date) (unknown) [facility]) Result panel 888 (unknown) (no date) (unknown) [facility]) Result panel 889 (unknown) (no date) (unknown) [facility]) Result panel 890 (unknown) (no date) (unknown) [facility]) Result panel 891 (unknown) (no date) (unknown) [facility]) Result panel 892 (unknown) (no date) (unknown) [facility]) Result panel 893 (unknown) (no date) (unknown) [facility]) Result panel 894 (unknown) (no date) (unknown) [facility]) Result panel 895 (unknown) (no date) (unknown) [facility]) Result panel 896 (unknown) (no date) (unknown) [facility]) Result panel 897 (unknown) (no date) (unknown) [facility]) Result panel 898 (unknown) (no date) (unknown) [facility]) Result panel 899 (unknown) (no date) (unknown) [facility]) Result panel 900 (unknown) (no date) (unknown) [facility]) Result panel 901 (unknown) (no date) (unknown) [facility]) Result panel 902 (unknown) (no date) (unknown) [facility]) Result panel 903 (unknown) (no date) (unknown) [facility]) Result panel 904 (unknown) (no date) (unknown) [facility]) Result panel 905 (unknown) (no date) (unknown) [facility]) Result panel 906 (unknown) (no date) (unknown) [facility]) Result panel 907 (unknown) (no date) (unknown) [facility]) Result panel 908 (unknown) (no date) (unknown) [facility]) Result panel 909 (unknown) (no date) (unknown) [facility]) Result panel 910 (unknown) (no date) (unknown) [facility]) Result panel 911 (unknown) (no date) (unknown) [facility]) Result panel 912 (unknown) (no date) (unknown) [facility]) Result panel 913 (unknown) (no date) (unknown) [facility]) Result panel 914 (unknown) (no date) (unknown) [facility]) Result panel 915 (unknown) (no date) (unknown) [facility]) Result panel 916 (unknown) (no date) (unknown) [facility]) Result panel 917 (unknown) (no date) (unknown) [facility]) Result panel 918 (unknown) (no date) (unknown[facility]) Result panel 919 (unknown) (no date) (unknown[facility]) Result panel 920 (unknown) (no date) (unknown) [facility] [facility]) Result panel 921 (unknown) (no date) (unknown[facility]) Result panel 922 (unknown) (no date) (unknown) [facility] Result panel 923 (unknown) (no date) (unknown[facility] Result panel 924 (unknown) (no date) (unknown[facility]) Result panel 925 (unknown) (no date) (unknown) [facility] Result panel 926 (unknown) (no date) (unknown) [facility]) Result panel 927 (unknown) (no date) (unknown) [facility]) Result panel 928 (unknown) (no date) (unknown) [facility]) Result panel 929 (unknown) (no date) (unknown) [facility]) Result panel 930 (unknown) (no date) (unknown) [facility]) Result panel 931 (unknown) (no date) (unknown) [facility]) Result panel 932 (unknown) (no date) (unknown) [facility]) Result panel 933 (unknown) (no date) (unknown[facility] Result panel 934 (unknown) (no date) (unknown) [facility]) Result panel 935 (unknown) (no date) (unknown) [facility] Result panel 936 (unknown) (no date) (unknown[facility] Result panel 937 (unknown) (no date) (unknown) [facility]) Result panel 938 (unknown) (no date) (unknown[facility] Result panel 939 (unknown) (no date) (unknown) [facility] Result panel 940 (unknown) (no date) (unknown[facility] Result panel 941 (unknown) (no date) (unknown) [facility] Result panel 942 (unknown) (no date) (unknown) [facility]) Result panel 943 (unknown) (no date) (unknown[facility] Result panel 944 (unknown) (no date) (unknown) [facility]) Result panel 945 (unknown) (no date) (unknown) [facility]) Result panel 946 (unknown) (no date) (unknown) [facility] Result panel 947 (unknown) (no date) (unknown[facility]) Result panel 948 (unknown) (no date) (unknown) [facility] Result panel 949 (unknown) (no date) (unknown) [facility] Result panel 950 (unknown) (no date) (unknown) [facility]) Result panel 951 (unknown) (no date) (unknown) [facility]) Result panel 952 (unknown) (no date) (unknown) [facility]) Result panel 953 (unknown) (no date) (unknown[facility]) Result panel 954 (unknown) (no date) (unknown[facility]) Result panel 955 (unknown) (no date) (unknown[facility]) Result panel 956 (unknown) (no date) (unknown) [facility] Result panel 957 (unknown) (no date) (unknown) [facility]) Result panel 958 (unknown) (no date) (unknown) [facility] Result panel 959 (unknown) (no date) (unknown) [facility]) Result panel 960 (unknown) (no date) (unknown[facility] Result panel 961 (unknown) (no date) (unknown) [facility]) Result panel 962 (unknown) (no date) (unknown) [facility]) Result panel 963 (unknown) (no date) (unknown) [facility]) Result panel 964 (unknown) (no date) (unknown) [facility]) Result panel 965 (unknown) (no date) (unknown) [facility]) Result panel 966 (unknown) (no date) (unknown) [facility]) Result panel 967 (unknown) (no date) (unknown) [facility]) Result panel 968 (unknown) (no date) (unknown) [facility] Result panel 969 (unknown) (no date) (unknown) [facility]) Result panel 970 (unknown) (no date) (unknown) [facility] Result panel 971 (unknown) (no date) (unknown) [facility]) Result panel 972 (unknown) (no date) (unknown) [facility] Result panel 973 (unknown) (no date) (unknown) [facility]) Result panel 974 (unknown) (no date) (unknown) [facility]) Result panel 975 (unknown) (no date) (unknown) [facility]) Result panel 976 (unknown) (no date) (unknown) [facility]) Result panel 977 (unknown) (no date) (unknown) [facility]) Result panel 978 (unknown) (no date) (unknown) [facility]) Result panel 979 (unknown) (no date) (unknown) [facility]) Result panel 980 (unknown) (no date) (unknown[facility]) Result panel 981 (unknown) (no date) (unknown) [facility]) Result panel 982 (unknown) (no date) (unknown) [facility]) Result panel 983 (unknown) (no date) (unknown) [facility]) Result panel 984 (unknown) (no date) (unknown) [facility]) Result panel 985 (unknown) (no date) (unknown) [facility]) Result panel 986 (unknown) (no date) (unknown[facility]) Result panel 987 (unknown) (no date) (unknown) [facility]) Result panel 988 (unknown) (no date) (unknown) [facility]) Result panel 989 (unknown) (no date) (unknown) [facility]) Result panel 990 (unknown) (no date) (unknown[facility]) Result panel 991 (unknown) (no date) (unknown) [facility]) Result panel 992 (unknown) (no date) (unknown[facility]) Result panel 993 (unknown) (no date) (unknown) [facility]) Result panel 994 (unknown) (no date) (unknown) [facility]) Result panel 995 (unknown) (no date) (unknown) [facility]) Result panel 996 (unknown) (no date) (unknown) [facility]) Result panel 997 (unknown) (no date) (unknown) [facility]) Result panel 998 (unknown) (no date) (unknown) [facility]) Result panel 999 (unknown) (no date) (unknown) [facility]) Result panel 1000 (unknown) (no date) (unknown) [facility]) Result panel 1001 (unknown) (no date) (unknown) [facility]) Result panel 1002 (unknown) (no date) (unknown) [facility]) Result panel 1003 (unknown) (no date) (unknown) [facility]) Result panel 1004 (unknown) (no date) (unknown) [facility]) Result panel 1005 (unknown) (no date) (unknown) [facility]) Result panel 1006 (unknown) (no date) (unknown) [facility]) Result panel 1007 (unknown) (no date) (unknown) [facility]) Result panel 1008 (unknown) (no date) (unknown) [facility]) Result panel 1009 (unknown) (no date) (unknown) [facility]) Result panel 1010 (unknown) (no date) (unknown) [facility]) Result panel 1011 (unknown) (no date) (unknown) [facility]) Result panel 1012 (unknown) (no date) (unknown) [facility]) Result panel 1013 (unknown) (no date) (unknown) [facility]) Result panel 1014 (unknown) (no date) (unknown) [facility]) Result panel 1015 (unknown) (no date) (unknown) [facility]) Result panel 1016 (unknown) (no date) (unknown) [facility]) Result panel 1017 (unknown) (no date) (unknown) [facility]) Result panel 1018 (unknown) (no date) (unknown) [facility]) Result panel 1019 (unknown) (no date) (unknown) [facility]) Result panel 1020 (unknown) (no date) (unknown) [facility]) Result panel 1021 (unknown) (no date) (unknown) [facility]) Result panel 1022 (unknown) (no date) (unknown) [facility]) Result panel 1023 (unknown) (no date) (unknown) [facility]) Result panel 1024 (unknown) (no date) (unknown) [facility]) Result panel 1025 (unknown) (no date) (unknown) [facility]) Result panel 1026 (unknown) (no date) (unknown) [facility]) Result panel 1027 (unknown) (no date) (unknown) [facility]) Result panel 1028 (unknown) (no date) (unknown) [facility]) Result panel 1029 (unknown) (no date) (unknown) [facility]) Result panel 1030 (unknown) (no date) (unknown) [facility]) Result panel 1031 (unknown) (no date) (unknown) [facility]) Result panel 1032 (unknown) (no date) (unknown) [facility]) Result panel 1033 (unknown) (no date) (unknown) [facility]) Result panel 1034 (unknown) (no date) (unknown) [facility]) Result panel 1035 (unknown) (no date) (unknown) [facility]) Result panel 1036 (unknown) (no date) (unknown) [facility]) Result panel 1037 (unknown) (no date) (unknown) [facility]) Result panel 1038 (unknown) (no date) (unknown) [facility]) Result panel 1039 (unknown) (no date) (unknown) [facility]) Result panel 1040 (unknown) (no date) (unknown) [facility]) Result panel 1041 (unknown) (no date) (unknown) [facility]) Result panel 1042 (unknown) (no date) (unknown) [facility]) Result panel 1043 (unknown) (no date) (unknown) [facility]) Result panel 1044 (unknown) (no date) (unknown) [facility]) Result panel 1045 (unknown) (no date) (unknown) [facility]) Result panel 1046 (unknown) (no date) (unknown) [facility]) Result panel 1047 (unknown) (no date) (unknown) [facility]) Result panel 1048 (unknown) (no date) (unknown) [facility]) Result panel 1049 (unknown) (no date) (unknown) [facility]) Result panel 1050 (unknown) (no date) (unknown) [facility]) Result panel 1051 (unknown) (no date) (unknown) [facility]) Result panel 1052 (unknown) (no date) (unknown) [facility]) Result panel 1053 (unknown) (no date) (unknown) [facility]) Result panel 1054 (unknown) (no date) (unknown) [facility]) Result panel 1055 (unknown) (no date) (unknown) [facility]) Result panel 1056 (unknown) (no date) (unknown) [facility]) Result panel 1057 (unknown) (no date) (unknown) [facility]) Result panel 1058 (unknown) (no date) (unknown) [facility]) Result panel 1059 (unknown) (no date) (unknown) [facility]) Result panel 1060 (unknown) (no date) (unknown) [facility]) Result panel 1061 (unknown) (no date) (unknown) [facility]) Result panel 1062 (unknown) (no date) (unknown) [facility]) Result panel 1063 (unknown) (no date) (unknown) [facility]) Result panel 1064 (unknown) (no date) (unknown) [facility]) Result panel 1065 (unknown) (no date) (unknown) [facility]) Result panel 1066 (unknown) (no date) (unknown) [facility]) Result panel 1067 (unknown) (no date) (unknown) [facility]) Result panel 1068 (unknown) (no date) (unknown) [facility]) Result panel 1069 (unknown) (no date) (unknown) [facility]) Result panel 1070 (unknown) (no date) (unknown) [facility]) Result panel 1071 (unknown) (no date) (unknown) [facility]) Result panel 1072 (unknown) (no date) (unknown) [facility]) Result panel 1073 (unknown) (no date) (unknown) [facility]) Result panel 1074 (unknown) (no date) (unknown) [facility]) Result panel 1075 (unknown) (no date) (unknown) [facility]) Result panel 1076 (unknown) (no date) (unknown) [facility]) Result panel 1077 (unknown) (no date) (unknown) [facility]) Result panel 1078 (unknown) (no date) (unknown) [facility]) Result panel 1079 (unknown) (no date) (unknown) [facility]) Result panel 1080 (unknown) (no date) (unknown) [facility]) Result panel 1081 (unknown) (no date) (unknown) [facility]) Result panel 1082 (unknown) (no date) (unknown) [facility]) Result panel 1083 (unknown) (no date) (unknown) [facility]) Result panel 1084 (unknown) (no date) (unknown) [facility]) Result panel 1085 (unknown) (no date) (unknown) [facility]) Result panel 1086 (unknown) (no date) (unknown) [facility]) Result panel 1087 (unknown) (no date) (unknown) [facility]) Result panel 1088 (unknown) (no date) (unknown) [facility]) Result panel 1089 (unknown) (no date) (unknown) [facility]) Result panel 1090 (unknown) (no date) (unknown) [facility]) Result panel 1091 (unknown) (no date) (unknown) [facility]) Result panel 1092 (unknown) (no date) (unknown) [facility]) Result panel 1093 (unknown) (no date) (unknown) [facility]) Result panel 1094 (unknown) (no date) (unknown) [facility]) Result panel 1095 (unknown) (no date) (unknown) [facility]) Result panel 1096 (unknown) (no date) (unknown) [facility]) Result panel 1097 (unknown) (no date) (unknown) [facility]) Result panel 1098 (unknown) (no date) (unknown) [facility]) Result panel 1099 (unknown) (no date) (unknown) [facility]) Result panel 1100 (unknown) (no date) (unknown) [facility]) Result panel 1101 (unknown) (no date) (unknown) [facility]) Result panel 1102 (unknown) (no date) (unknown) [facility]) Result panel 1103 (unknown) (no date) (unknown) [facility]) Result panel 1104 (unknown) (no date) (unknown) [facility]) Result panel 1105 (unknown) (no date) (unknown) [facility]) Result panel 1106 (unknown) (no date) (unknown) [facility]) Result panel 1107 (unknown) (no date) (unknown) [facility]) Result panel 1108 (unknown) (no date) (unknown) [facility]) Result panel 1109 (unknown) (no date) (unknown) [facility]) Result panel 1110 (unknown) (no date) (unknown) [facility]) Result panel 1111 (unknown) (no date) (unknown) [facility]) Result panel 1112 (unknown) (no date) (unknown) [facility]) Result panel 1113 (unknown) (no date) (unknown) [facility]) Result panel 1114 (unknown) (no date) (unknown) [facility]) Result panel 1115 (unknown) (no date) (unknown) [facility]) Result panel 1116 (unknown) (no date) (unknown) [facility]) Result panel 1117 (unknown) (no date) (unknown) [facility]) Result panel 1118 (unknown) (no date) (unknown) [facility]) Result panel 1119 (unknown) (no date) (unknown) [facility]) Result panel 1120 (unknown) (no date) (unknown) [facility]) Result panel 1121 (unknown) (no date) (unknown) [facility]) Result panel 1122 (unknown) (no date) (unknown) [facility]) Result panel 1123 (unknown) (no date) (unknown) [facility]) Result panel 1124 (unknown) (no date) (unknown) [facility]) Result panel 1125 (unknown) (no date) (unknown) [facility]) Result panel 1126 (unknown) (no date) (unknown) [facility]) Result panel 1127 (unknown) (no date) (unknown) [facility]) Result panel 1128 (unknown) (no date) (unknown) [facility]) Result panel 1129 (unknown) (no date) (unknown) [facility]) Result panel 1130 (unknown) (no date) (unknown) [facility]) Result panel 1131 (unknown) (no date) (unknown) [facility]) Result panel 1132 (unknown) (no date) (unknown) [facility]) Result panel 1133 (unknown) (no date) (unknown) [facility]) Result panel 1134 (unknown) (no date) (unknown) [facility]) Result panel 1135 (unknown) (no date) (unknown) [facility]) Result panel 1136 (unknown) (no date) (unknown) [facility]) Result panel 1137 (unknown) (no date) (unknown) [facility]) Result panel 1138 (unknown) (no date) (unknown) [facility]) Result panel 1139 (unknown) (no date) (unknown) [facility]) Result panel 1140 (unknown) (no date) (unknown) [facility]) Result panel 1141 (unknown) (no date) (unknown) [facility]) Result panel 1142 (unknown) (no date) (unknown) [facility]) Result panel 1143 (unknown) (no date) (unknown) [facility]) Result panel 1144 (unknown) (no date) (unknown) [facility]) Result panel 1145 (unknown) (no date) (unknown) [facility]) Result panel 1146 (unknown) (no date) (unknown) [facility]) Result panel 1147 (unknown) (no date) (unknown) [facility]) Result panel 1148 (unknown) (no date) (unknown) [facility]) Result panel 1149 (unknown) (no date) (unknown) [facility]) Result panel 1150 (unknown) (no date) (unknown) [facility]) Result panel 1151 (unknown) (no date) (unknown) [facility]) Result panel 1152 (unknown) (no date) (unknown) [facility]) Result panel 1153 (unknown) (no date) (unknown) [facility]) Result panel 1154 (unknown) (no date) (unknown) [facility]) Result panel 1155 (unknown) (no date) (unknown) [facility] Result panel 1156 (unknown) (no date) (unknown) [facility] [facility]) Result panel 1157 (unknown) (no date) (unknown) [facility]) Result panel 1158 (unknown) (no date) (unknown) [facility] Result panel 1159 (unknown) (no date) (unknown) [facility]) Result panel 1160 (unknown) (no date) (unknown) [facility]) Result panel 1161 (unknown) (no date) (unknown) [facility]) Result panel 1162 (unknown) (no date) (unknown) [facility]) Result panel 1163 (unknown) (no date) (unknown) [facility]) Result panel 1164 (unknown) (no date) (unknown[facility]) Result panel 1165 (unknown) (no date) (unknown[facility] Result panel 1166 (unknown) (no date) (unknown) [facility]) Result panel 1167 (unknown) (no date) (unknown) [facility]) Result panel 1168 (unknown) (no date) (unknown[facility]) Result panel 1169 (unknown) (no date) (unknown) [facility]) Result panel 1170 (unknown) (no date) (unknown) [facility]) Result panel 1171 (unknown) (no date) (unknown) [facility] Result panel 1172 (unknown) (no date) (unknown) [facility]) Result panel 1173 (unknown) (no date) (unknown) [facility]) Result panel 1174 (unknown) (no date) (unknown) [facility]) Result panel 1175 (unknown) (no date) (unknown) [facility]) Result panel 1176 (unknown) (no date) (unknown) [facility]) Result panel 1177 (unknown) (no date) (unknown[facility]) Result panel 1178 (unknown) (no date) (unknown[facility]) Result panel 1179 (unknown) (no date) (unknown) [facility]) Result panel 1180 (unknown) (no date) (unknown) [facility]) Result panel 1181 (unknown) (no date) (unknown) [facility]) Result panel 1182 (unknown) (no date) (unknown) [facility]) Result panel 1183 (unknown) (no date) (unknown) [facility]) Result panel 1184 (unknown) (no date) (unknown) [facility]) Result panel 1185 (unknown) (no date) (unknown) [facility]) Result panel 1186 (unknown) (no date) (unknown) [facility]) Result panel 1187 (unknown) (no date) (unknown) [facility]) Result panel 1188 (unknown) (no date) (unknown) [facility]) Result panel 1189 (unknown) (no date) (unknown) [facility]) Result panel 1190 (unknown) (no date) (unknown) [facility]) Result panel 1191 (unknown) (no date) (unknown) [facility]) Result panel 1192 (unknown) (no date) (unknown) [facility] Result panel 1193 (unknown) (no date) (unknown[facility]) Result panel 1194 (unknown) (no date) (unknown) [facility]) Result panel 1195 (unknown) (no date) (unknown) [facility]) Result panel 1196 (unknown) (no date) (unknown) [facility]) Result panel 1197 (unknown) (no date) (unknown) [facility]) Result panel 1198 (unknown) (no date) (unknown) [facility]) Result panel 1199 (unknown) (no date) (unknown) [facility]) Result panel 1200 (unknown) (no date) (unknown) [facility]) Result panel 1201 (unknown) (no date) (unknown) [facility]) Result panel 1202 (unknown) (no date) (unknown) [facility]) Result panel 1203 (unknown) (no date) (unknown) [facility]) Result panel 1204 (unknown) (no date) (unknown) [facility]) Result panel 1205 (unknown) (no date) (unknown) [facility]) Result panel 1206 (unknown) (no date) (unknown) [facility]) Result panel 1207 (unknown) (no date) (unknown[facility]) Result panel 1208 (unknown) (no date) (unknown) [facility]) Result panel 1209 (unknown) (no date) (unknown) [facility]) Result panel 1210 (unknown) (no date) (unknown) [facility]) Result panel 1211 (unknown) (no date) (unknown) [facility]) Result panel 1212 (unknown) (no date) (unknown[facility]) Result panel 1213 (unknown) (no date) (unknown) [facility]) Result panel 1214 (unknown) (no date) (unknown) [facility]) Result panel 1215 (unknown) (no date) (unknown) [facility]) Result panel 1216 (unknown) (no date) (unknown[facility]) Result panel 1217 (unknown) (no date) (unknown) [facility]) Result panel 1218 (unknown) (no date) (unknown[facility]) Result panel 1219 (unknown) (no date) (unknown) [facility]) Result panel 1220 (unknown) (no date) (unknown) [facility]) Result panel 1221 (unknown) (no date) (unknown) [facility]) Result panel 1222 (unknown) (no date) (unknown) [facility]) Result panel 1223 (unknown) (no date) (unknown) [facility]) Result panel 1224 (unknown) (no date) (unknown) [facility]) Result panel 1225 (unknown) (no date) (unknown) [facility]) Result panel 1226 (unknown) (no date) (unknown) [facility]) Result panel 1227 (unknown) (no date) (unknown) [facility]) Result panel 1228 (unknown) (no date) (unknown[facility]) Result panel 1229 (unknown) (no date) (unknown) [facility]) Result panel 1230 (unknown) (no date) (unknown) [facility]) Result panel 1231 (unknown) (no date) (unknown) [facility]) Result panel 1232 (unknown) (no date) (unknown) [facility]) Result panel 1233 (unknown) (no date) (unknown) [facility]) Result panel 1234 (unknown) (no date) (unknown[facility]) Result panel 1235 (unknown) (no date) (unknown) [facility]) Result panel 1236 (unknown) (no date) (unknown) [facility]) Result panel 1237 (unknown) (no date) (unknown) [facility]) Result panel 1238 (unknown) (no date) (unknown) [facility]) Result panel 1239 (unknown) (no date) (unknown) [facility]) Result panel 1240 (unknown) (no date) (unknown) [facility]) Result panel 1241 (unknown) (no date) (unknown) [facility]) Result panel 1242 (unknown) (no date) (unknown) [facility]) Result panel 1243 (unknown) (no date) (unknown) [facility]) Result panel 1244 (unknown) (no date) (unknown) [facility]) Result panel 1245 (unknown) (no date) (unknown) [facility]) Result panel 1246 (unknown) (no date) (unknown) [facility]) Result panel 1247 (unknown) (no date) (unknown) [facility]) Result panel 1248 (unknown) (no date) (unknown) [facility]) Result panel 1249 (unknown) (no date) (unknown) [facility]) Result panel 1250 (unknown) (no date) (unknown) [facility]) Result panel 1251 (unknown) (no date) (unknown) [facility]) Result panel 1252 (unknown) (no date) (unknown) [facility]) Result panel 1253 (unknown) (no date) (unknown) [facility]) Result panel 1254 (unknown) (no date) (unknown) [facility]) Result panel 1255 (unknown) (no date) (unknown) [facility]) Result panel 1256 (unknown) (no date) (unknown) [facility]) Result panel 1257 (unknown) (no date) (unknown) [facility]) Result panel 1258 (unknown) (no date) (unknown) [facility]) Result panel 1259 (unknown) (no date) (unknown) [facility]) Result panel 1260 (unknown) (no date) (unknown) [facility]) Result panel 1261 (unknown) (no date) (unknown) [facility]) Result panel 1262 (unknown) (no date) (unknown) [facility]) Result panel 1263 (unknown) (no date) (unknown[facility]) Result panel 1264 (unknown) (no date) (unknown) [facility]) Result panel 1265 (unknown) (no date) (unknown) [facility]) Result panel 1266 (unknown) (no date) (unknown) [facility]) Result panel 1267 (unknown) (no date) (unknown) [facility]) Result panel 1268 (unknown) (no date) (unknown) [facility]) Result panel 1269 (unknown) (no date) (unknown) [facility]) Result panel 1270 (unknown) (no date) (unknown) [facility]) Result panel 1271 (unknown) (no date) (unknown) [facility]) Result panel 1272 (unknown) (no date) (unknown) [facility]) Result panel 1273 (unknown) (no date) (unknown) [facility]) Result panel 1274 (unknown) (no date) (unknown) [facility]) Result panel 1275 (unknown) (no date) (unknown) [facility]) Result panel 1276 (unknown) (no date) (unknown) [facility]) Result panel 1277 (unknown) (no date) (unknown) [facility]) Result panel 1278 (unknown) (no date) (unknown) [facility]) Result panel 1279 (unknown) (no date) (unknown) [facility]) Result panel 1280 (unknown) (no date) (unknown) [facility]) Result panel 1281 (unknown) (no date) (unknown) [facility]) Result panel 1282 (unknown) (no date) (unknown) [facility]) Result panel 1283 (unknown) (no date) (unknown) [facility]) Result panel 1284 (unknown) (no date) (unknown) [facility]) Result panel 1285 (unknown) (no date) (unknown) [facility]) Result panel 1286 (unknown) (no date) (unknown) [facility]) Result panel 1287 (unknown) (no date) (unknown) [facility]) Result panel 1288 (unknown) (no date) (unknown) [facility]) Result panel 1289 (unknown) (no date) (unknown) [facility]) Result panel 1290 (unknown) (no date) (unknown) [facility]) Result panel 1291 (unknown) (no date) (unknown) [facility]) Result panel 1292 (unknown) (no date) (unknown) [facility]) Result panel 1293 (unknown) (no date) (unknown) [facility]) Result panel 1294 (unknown) (no date) (unknown) [facility]) Result panel 1295 (unknown) (no date) (unknown) [facility]) Result panel 1296 (unknown) (no date) (unknown) [facility]) Result panel 1297 (unknown) (no date) (unknown) [facility]) Result panel 1298 (unknown) (no date) (unknown) [facility]) Result panel 1299 (unknown) (no date) (unknown) [facility]) Result panel 1300 (unknown) (no date) (unknown) [facility]) Result panel 1301 (unknown) (no date) (unknown) [facility]) Result panel 1302 (unknown) (no date) (unknown) [facility]) Result panel 1303 (unknown) (no date) (unknown) [facility]) Result panel 1304 (unknown) (no date) (unknown) [facility]) Result panel 1305 (unknown) (no date) (unknown) [facility]) Result panel 1306 (unknown) (no date) (unknown) [facility]) Result panel 1307 (unknown) (no date) (unknown) [facility]) Result panel 1308 (unknown) (no date) (unknown) [facility]) Result panel 1309 (unknown) (no date) (unknown) [facility]) Result panel 1310 (unknown) (no date) (unknown) [facility]) Result panel 1311 (unknown) (no date) (unknown) [facility]) Result panel 1312 (unknown) (no date) (unknown) [facility]) Result panel 1313 (unknown) (no date) (unknown) [facility]) Result panel 1314 (unknown) (no date) (unknown) [facility]) Result panel 1315 (unknown) (no date) (unknown) [facility]) Result panel 1316 (unknown) (no date) (unknown) [facility]) Result panel 1317 (unknown) (no date) (unknown) [facility]) Result panel 1318 (unknown) (no date) (unknown[facility]) Result panel 1319 (unknown) (no date) (unknown) [facility]) Result panel 1320 (unknown) (no date) (unknown) [facility]) Result panel 1321 (unknown) (no date) (unknown) [facility]) Result panel 1322 (unknown) (no date) (unknown) [facility]) Result panel 1323 (unknown) (no date) (unknown) [facility]) Result panel 1324 (unknown) (no date) (unknown) [facility]) Result panel 1325 (unknown) (no date) (unknown) [facility]) Result panel 1326 (unknown) (no date) (unknown) [facility]) Result panel 1327 (unknown) (no date) (unknown) [facility]) Result panel 1328 (unknown) (no date) (unknown) [facility]) Result panel 1329 (unknown) (no date) (unknown) [facility]) Result panel 1330 (unknown) (no date) (unknown) [facility]) Result panel 1331 (unknown) (no date) (unknown) [facility]) Result panel 1332 (unknown) (no date) (unknown) [facility]) Result panel 1333 (unknown) (no date) (unknown) [facility]) Result panel 1334 (unknown) (no date) (unknown) [facility]) Result panel 1335 (unknown) (no date) (unknown) [facility]) Result panel 1336 (unknown) (no date) (unknown) [facility]) Result panel 1337 (unknown) (no date) (unknown) [facility]) Result panel 1338 (unknown) (no date) (unknown) [facility]) Result panel 1339 (unknown) (no date) (unknown) [facility]) Result panel 1340 (unknown) (no date) (unknown) [facility]) Result panel 1341 (unknown) (no date) (unknown) [facility]) Result panel 1342 (unknown) (no date) (unknown) [facility]) Result panel 1343 (unknown) (no date) (unknown) [facility]) Result panel 1344 (unknown) (no date) (unknown) [facility]) Result panel 1345 (unknown) (no date) (unknown) [facility]) Result panel 1346 (unknown) (no date) (unknown) [facility]) Result panel 1347 (unknown) (no date) (unknown) [facility]) Result panel 1348 (unknown) (no date) (unknown) [facility]) Result panel 1349 (unknown) (no date) (unknown) [facility]) Result panel 1350 (unknown) (no date) (unknown) [facility]) Result panel 1351 (unknown) (no date) (unknown) [facility]) Result panel 1352 (unknown) (no date) (unknown) [facility]) Result panel 1353 (unknown) (no date) (unknown) [facility]) Result panel 1354 (unknown) (no date) (unknown) [facility]) Result panel 1355 (unknown) (no date) (unknown) [facility]) Result panel 1356 (unknown) (no date) (unknown) [facility]) Result panel 1357 (unknown) (no date) (unknown) [facility]) Result panel 1358 (unknown) (no date) (unknown) [facility]) Result panel 1359 (unknown) (no date) (unknown) [facility]) Result panel 1360 (unknown) (no date) (unknown) [facility]) Result panel 1361 (unknown) (no date) (unknown) [facility]) Result panel 1362 (unknown) (no date) (unknown) [facility]) Result panel 1363 (unknown) (no date) (unknown) [facility]) Result panel 1364 (unknown) (no date) (unknown) [facility]) Result panel 1365 (unknown) (no date) (unknown) [facility]) Result panel 1366 (unknown) (no date) (unknown) [facility]) Result panel 1367 (unknown) (no date) (unknown) [facility]) Result panel 1368 (unknown) (no date) (unknown) [facility]) Result panel 1369 (unknown) (no date) (unknown) [facility]) Result panel 1370 (unknown) (no date) (unknown) [facility]) Result panel 1371 (unknown) (no date) (unknown) [facility]) Result panel 1372 (unknown) (no date) (unknown) [facility]) Result panel 1373 (unknown) (no date) (unknown) [facility]) Result panel 1374 (unknown) (no date) (unknown) [facility]) Result panel 1375 (unknown) (no date) (unknown) [facility]) Result panel 1376 (unknown) (no date) (unknown) [facility]) Result panel 1377 (unknown) (no date) (unknown) [facility]) Result panel 1378 (unknown) (no date) (unknown) [facility]) Result panel 1379 (unknown) (no date) (unknown) [facility]) Result panel 1380 (unknown) (no date) (unknown) [facility]) Result panel 1381 (unknown) (no date) (unknown) [facility]) Result panel 1382 (unknown) (no date) (unknown) [facility]) Result panel 1383 (unknown) (no date) (unknown) [facility]) Result panel 1384 (unknown) (no date) (unknown) [facility]) Result panel 1385 (unknown) (no date) (unknown) [facility]) Result panel 1386 (unknown) (no date) (unknown) [facility]) Result panel 1387 (unknown) (no date) (unknown) [facility]) Result panel 1388 (unknown) (no date) (unknown) [facility]) Result panel 1389 (unknown) (no date) (unknown) [facility]) Result panel 1390 (unknown) (no date) (unknown) [facility]) Result panel 1391 (unknown) (no date) (unknown) [facility] [facility] Result panel 1392 (unknown) (no date) (unknown) [facility]) Result panel 1393 (unknown) (no date) (unknown) [facility]) Result panel 1394 (unknown) (no date) (unknown) [facility] Result panel 1395 (unknown) (no date) (unknown) [facility]) Result panel 1396 (unknown) (no date) (unknown) [facility]) Result panel 1397 (unknown) (no date) (unknown) [facility]) Result panel 1398 (unknown) (no date) (unknown) [facility]) Result panel 1399 (unknown) (no date) (unknown) [facility]) Result panel 1400 (unknown) (no date) (unknown) [facility]) Result panel 1401 (unknown) (no date) (unknown) [facility]) Result panel 1402 (unknown) (no date) (unknown) [facility]) Result panel 1403 (unknown) (no date) (unknown) [facility]) Result panel 1404 (unknown) (no date) (unknown) [facility]) Result panel 1405 (unknown) (no date) (unknown) [facility]) Result panel 1406 (unknown) (no date) (unknown) [facility]) Result panel 1407 (unknown) (no date) (unknown) [facility]) Result panel 1408 (unknown) (no date) (unknown) [facility]) Result panel 1409 (unknown) (no date) (unknown) [facility]) Result panel 1410 (unknown) (no date) (unknown) [facility]) Result panel 1411 (unknown) (no date) (unknown) [facility]) Result panel 1412 (unknown) (no date) (unknown[facility]) Result panel 1413 (unknown) (no date) (unknown) [facility]) Result panel 1414 (unknown) (no date) (unknown) [facility]) Result panel 1415 (unknown) (no date) (unknown) [facility]) Result panel 1416 (unknown) (no date) (unknown) [facility]) Result panel 1417 (unknown) (no date) (unknown) [facility]) Result panel 1418 (unknown) (no date) (unknown) [facility]) Result panel 1419 (unknown) (no date) (unknown) [facility]) Result panel 1420 (unknown) (no date) (unknown) [facility]) Result panel 1421 (unknown) (no date) (unknown) [facility]) Result panel 1422 (unknown) (no date) (unknown) [facility]) Result panel 1423 (unknown) (no date) (unknown) [facility]) Result panel 1424 (unknown) (no date) (unknown) [facility]) Result panel 1425 (unknown) (no date) (unknown) [facility]) Result panel 1426 (unknown) (no date) (unknown) [facility]) Result panel 1427 (unknown) (no date) (unknown) [facility]) Result panel 1428 (unknown) (no date) (unknown) [facility]) Result panel 1429 (unknown) (no date) (unknown) [facility]) Result panel 1430 (unknown) (no date) (unknown) [facility]) Result panel 1431 (unknown) (no date) (unknown) [facility]) Result panel 1432 (unknown) (no date) (unknown) [facility]) Result panel 1433 (unknown) (no date) (unknown) [facility]) Result panel 1434 (unknown) (no date) (unknown) [facility]) Result panel 1435 (unknown) (no date) (unknown) [facility] Result panel 1436 (unknown) (no date) (unknown) [facility]) Result panel 1437 (unknown) (no date) (unknown) [facility]) Result panel 1438 (unknown) (no date) (unknown) [facility]) Result panel 1439 (unknown) (no date) (unknown) [facility]) Result panel 1440 (unknown) (no date) (unknown) [facility]) Result panel 1441 (unknown) (no date) (unknown) [facility]) Result panel 1442 (unknown) (no date) (unknown) [facility]) Result panel 1443 (unknown) (no date) (unknown) [facility]) Result panel 1444 (unknown) (no date) (unknown) [facility]) Result panel 1445 (unknown) (no date) (unknown) [facility]) Result panel 1446 (unknown) (no date) (unknown) [facility]) Result panel 1447 (unknown) (no date) (unknown) [facility]) Result panel 1448 (unknown) (no date) (unknown) [facility]) Result panel 1449 (unknown) (no date) (unknown) [facility]) Result panel 1450 (unknown) (no date) (unknown) [facility]) Result panel 1451 (unknown) (no date) (unknown) [facility]) Result panel 1452 (unknown) (no date) (unknown) [facility]) Result panel 1453 (unknown) (no date) (unknown) [facility] Result panel 1454 (unknown) (no date) (unknown) [facility]) Result panel 1455 (unknown) (no date) (unknown) [facility]) Result panel 1456 (unknown) (no date) (unknown) [facility]) Result panel 1457 (unknown) (no date) (unknown) [facility]) Result panel 1458 (unknown) (no date) (unknown) [facility]) Result panel 1459 (unknown) (no date) (unknown) [facility]) Result panel 1460 (unknown) (no date) (unknown) [facility]) Result panel 1461 (unknown) (no date) (unknown) [facility]) Result panel 1462 (unknown) (no date) (unknown) [facility]) Result panel 1463 (unknown) (no date) (unknown) [facility]) Result panel 1464 (unknown) (no date) (unknown) [facility]) Result panel 1465 (unknown) (no date) (unknown) [facility]) Result panel 1466 (unknown) (no date) (unknown) [facility]) Result panel 1467 (unknown) (no date) (unknown) [facility]) Result panel 1468 (unknown) (no date) (unknown) [facility]) Result panel 1469 (unknown) (no date) (unknown) [facility]) Result panel 1470 (unknown) (no date) (unknown) [facility]) Result panel 1471 (unknown) (no date) (unknown) [facility]) Result panel 1472 (unknown) (no date) (unknown) [facility]) Result panel 1473 (unknown) (no date) (unknown) [facility]) Result panel 1474 (unknown) (no date) (unknown) [facility]) Result panel 1475 (unknown) (no date) (unknown) [facility]) Result panel 1476 (unknown) (no date) (unknown) [facility]) Result panel 1477 (unknown) (no date) (unknown) [facility]) Result panel 1478 (unknown) (no date) (unknown) [facility]) Result panel 1479 (unknown) (no date) (unknown) [facility]) Result panel 1480 (unknown) (no date) (unknown) [facility]) Result panel 1481 (unknown) (no date) (unknown) [facility]) Result panel 1482 (unknown) (no date) (unknown) [facility]) Result panel 1483 (unknown) (no date) (unknown) [facility]) Result panel 1484 (unknown) (no date) (unknown) [facility]) Result panel 1485 (unknown) (no date) (unknown) [facility]) Result panel 1486 (unknown) (no date) (unknown) [facility]) Result panel 1487 (unknown) (no date) (unknown) [facility]) Result panel 1488 (unknown) (no date) (unknown) [facility]) Result panel 1489 (unknown) (no date) (unknown) [facility]) Result panel 1490 (unknown) (no date) (unknown) [facility]) Result panel 1491 (unknown) (no date) (unknown) [facility]) Result panel 1492 (unknown) (no date) (unknown) [facility]) Result panel 1493 (unknown) (no date) (unknown) [facility]) Result panel 1494 (unknown) (no date) (unknown) [facility]) Result panel 1495 (unknown) (no date) (unknown) [facility]) Result panel 1496 (unknown) (no date) (unknown) [facility]) Result panel 1497 (unknown) (no date) (unknown) [facility]) Result panel 1498 (unknown) (no date) (unknown) [facility]) Result panel 1499 (unknown) (no date) (unknown) [facility]) Result panel 1500 (unknown) (no date) (unknown) [facility]) Result panel 1501 (unknown) (no date) (unknown) [facility]) Result panel 1502 (unknown) (no date) (unknown) [facility]) Result panel 1503 (unknown) (no date) (unknown) [facility]) Result panel 1504 (unknown) (no date) (unknown) [facility]) Result panel 1505 (unknown) (no date) (unknown) [facility]) Result panel 1506 (unknown) (no date) (unknown) [facility]) Result panel 1507 (unknown) (no date) (unknown) [facility]) Result panel 1508 (unknown) (no date) (unknown) [facility]) Result panel 1509 (unknown) (no date) (unknown) [facility]) Result panel 1510 (unknown) (no date) (unknown) [facility]) Result panel 1511 (unknown) (no date) (unknown) [facility]) Result panel 1512 (unknown) (no date) (unknown) [facility]) Result panel 1513 (unknown) (no date) (unknown) [facility]) Result panel 1514 (unknown) (no date) (unknown) [facility]) Result panel 1515 (unknown) (no date) (unknown) [facility]) Result panel 1516 (unknown) (no date) (unknown) [facility]) Result panel 1517 (unknown) (no date) (unknown) [facility]) Result panel 1518 (unknown) (no date) (unknown) [facility]) Result panel 1519 (unknown) (no date) (unknown) [facility]) Result panel 1520 (unknown) (no date) (unknown) [facility]) Result panel 1521 (unknown) (no date) (unknown) [facility]) Result panel 1522 (unknown) (no date) (unknown) [facility]) Result panel 1523 (unknown) (no date) (unknown) [facility]) Result panel 1524 (unknown) (no date) (unknown) [facility]) Result panel 1525 (unknown) (no date) (unknown) [facility]) Result panel 1526 (unknown) (no date) (unknown) [facility]) Result panel 1527 (unknown) (no date) (unknown) [facility]) Result panel 1528 (unknown) (no date) (unknown) [facility]) Result panel 1529 (unknown) (no date) (unknown) [facility]) Result panel 1530 (unknown) (no date) (unknown) [facility]) Result panel 1531 (unknown) (no date) (unknown) [facility]) Result panel 1532 (unknown) (no date) (unknown) [facility]) Result panel 1533 (unknown) (no date) (unknown) [facility]) Result panel 1534 (unknown) (no date) (unknown) [facility]) Result panel 1535 (unknown) (no date) (unknown) [facility]) Result panel 1536 (unknown) (no date) (unknown) [facility]) Result panel 1537 (unknown) (no date) (unknown) [facility]) Result panel 1538 (unknown) (no date) (unknown) [facility]) Result panel 1539 (unknown) (no date) (unknown) [facility]) Result panel 1540 (unknown) (no date) (unknown) [facility]) Result panel 1541 (unknown) (no date) (unknown) [facility]) Result panel 1542 (unknown) (no date) (unknown) [facility]) Result panel 1543 (unknown) (no date) (unknown) [facility]) Result panel 1544 (unknown) (no date) (unknown) [facility]) Result panel 1545 (unknown) (no date) (unknown) [facility]) Result panel 1546 (unknown) (no date) (unknown) [facility]) Result panel 1547 (unknown) (no date) (unknown) [facility]) Result panel 1548 (unknown) (no date) (unknown) [facility]) Result panel 1549 (unknown) (no date) (unknown) [facility]) Result panel 1550 (unknown) (no date) (unknown) [facility]) Result panel 1551 (unknown) (no date) (unknown) [facility]) Result panel 1552 (unknown) (no date) (unknown) [facility]) Result panel 1553 (unknown) (no date) (unknown) [facility]) Result panel 1554 (unknown) (no date) (unknown) [facility]) Result panel 1555 (unknown) (no date) (unknown) [facility]) Result panel 1556 (unknown) (no date) (unknown) [facility]) Result panel 1557 (unknown) (no date) (unknown) [facility]) Result panel 1558 (unknown) (no date) (unknown) [facility]) Result panel 1559 (unknown) (no date) (unknown) [facility]) Result panel 1560 (unknown) (no date) (unknown) [facility]) Result panel 1561 (unknown) (no date) (unknown) [facility]) Result panel 1562 (unknown) (no date) (unknown) [facility]) Result panel 1563 (unknown) (no date) (unknown) [facility]) Result panel 1564 (unknown) (no date) (unknown) [facility]) Result panel 1565 (unknown) (no date) (unknown) [facility]) Result panel 1566 (unknown) (no date) (unknown) [facility]) Result panel 1567 (unknown) (no date) (unknown) [facility]) Result panel 1568 (unknown) (no date) (unknown) [facility]) Result panel 1569 (unknown) (no date) (unknown) [facility]) Result panel 1570 (unknown) (no date) (unknown) [facility]) Result panel 1571 (unknown) (no date) (unknown) [facility]) Result panel 1572 (unknown) (no date) (unknown) [facility]) Result panel 1573 (unknown) (no date) (unknown) [facility]) Result panel 1574 (unknown) (no date) (unknown) [facility]) Result panel 1575 (unknown) (no date) (unknown) [facility]) Result panel 1576 (unknown) (no date) (unknown) [facility]) Result panel 1577 (unknown) (no date) (unknown) [facility]) Result panel 1578 (unknown) (no date) (unknown) [facility]) Result panel 1579 (unknown) (no date) (unknown) [facility]) Result panel 1580 (unknown) (no date) (unknown) [facility]) Result panel 1581 (unknown) (no date) (unknown) [facility]) Result panel 1582 (unknown) (no date) (unknown) [facility]) Result panel 1583 (unknown) (no date) (unknown) [facility]) Result panel 1584 (unknown) (no date) (unknown) [facility]) Result panel 1585 (unknown) (no date) (unknown) [facility]) Result panel 1586 (unknown) (no date) (unknown) [facility]) Result panel 1587 (unknown) (no date) (unknown) [facility]) Result panel 1588 (unknown) (no date) (unknown) [facility]) Result panel 1589 (unknown) (no date) (unknown) [facility]) Result panel 1590 (unknown) (no date) (unknown) [facility]) Result panel 1591 (unknown) (no date) (unknown) [facility]) Result panel 1592 (unknown) (no date) (unknown) [facility]) Result panel 1593 (unknown) (no date) (unknown) [facility]) Result panel 1594 (unknown) (no date) (unknown) [facility]) Result panel 1595 (unknown) (no date) (unknown) [facility]) Result panel 1596 (unknown) (no date) (unknown) [facility]) Result panel 1597 (unknown) (no date) (unknown) [facility]) Result panel 1598 (unknown) (no date) (unknown) [facility]) Result panel 1599 (unknown) (no date) (unknown) [facility]) Result panel 1600 (unknown) (no date) (unknown) [facility]) Result panel 1601 (unknown) (no date) (unknown) [facility]) Result panel 1602 (unknown) (no date) (unknown) [facility]) Result panel 1603 (unknown) (no date) (unknown) [facility]) Result panel 1604 (unknown) (no date) (unknown) [facility]) Result panel 1605 (unknown) (no date) (unknown) [facility]) Result panel 1606 (unknown) (no date) (unknown) [facility]) Result panel 1607 (unknown) (no date) (unknown) [facility]) Result panel 1608 (unknown) (no date) (unknown) [facility]) Result panel 1609 (unknown) (no date) (unknown) [facility]) Result panel 1610 (unknown) (no date) (unknown) [facility]) Result panel 1611 (unknown) (no date) (unknown) [facility]) Result panel 1612 (unknown) (no date) (unknown) [facility]) Result panel 1613 (unknown) (no date) (unknown) [facility]) Result panel 1614 (unknown) (no date) (unknown) [facility]) Result panel 1615 (unknown) (no date) (unknown) [facility]) Result panel 1616 (unknown) (no date) (unknown) [facility]) Result panel 1617 (unknown) (no date) (unknown) [facility]) Result panel 1618 (unknown) (no date) (unknown) [facility]) Result panel 1619 (unknown) (no date) (unknown) [facility]) Result panel 1620 (unknown) (no date) (unknown) [facility]) Result panel 1621 (unknown) (no date) (unknown) [facility]) Result panel 1622 (unknown) (no date) (unknown) [facility]) Result panel 1623 (unknown) (no date) (unknown) [facility]) Result panel 1624 (unknown) (no date) (unknown) [facility]) Result panel 1625 (unknown) (no date) (unknown) [facility]) Result panel 1626 (unknown) (no date) (unknown) [facility] Result panel 1627 (unknown) (no date) (unknown) [facility]) Result panel 1628 (unknown) (no date) (unknown) [facility] Result panel 1629 (unknown) (no date) (unknown) [facility]) Result panel 1630 (unknown) (no date) (unknown) [facility]) Result panel 1631 (unknown) (no date) (unknown) [facility]) Result panel 1632 (unknown) (no date) (unknown) [facility]) Result panel 1633 (unknown) (no date) (unknown) [facility]) Result panel 1634 (unknown) (no date) (unknown) [facility]) Result panel 1635 (unknown) (no date) (unknown) [facility]) Result panel 1636 (unknown) (no date) (unknown) [facility]) Result panel 1637 (unknown) (no date) (unknown) [facility]) Result panel 1638 (unknown) (no date) (unknown) [facility]) Result panel 1639 (unknown) (no date) (unknown) [facility]) Result panel 1640 (unknown) (no date) (unknown) [facility]) Result panel 1641 (unknown) (no date) (unknown) [facility]) Result panel 1642 (unknown) (no date) (unknown) [facility]) Result panel 1643 (unknown) (no date) (unknown) [facility]) Result panel 1644 (unknown) (no date) (unknown) [facility]) Result panel 1645 (unknown) (no date) (unknown) [facility]) Result panel 1646 (unknown) (no date) (unknown) [facility]) Result panel 1647 (unknown) (no date) (unknown) [facility]) Result panel 1648 (unknown) (no date) (unknown) [facility]) Result panel 1649 (unknown) (no date) (unknown) [facility]) Result panel 1650 (unknown) (no date) (unknown) [facility]) Result panel 1651 (unknown) (no date) (unknown) [facility]) Result panel 1652 (unknown) (no date) (unknown) [facility]) Result panel 1653 (unknown) (no date) (unknown) [facility]) Result panel 1654 (unknown) (no date) (unknown) [facility]) Result panel 1655 (unknown) (no date) (unknown) [facility]) Result panel 1656 (unknown) (no date) (unknown) [facility]) Result panel 1657 (unknown) (no date) (unknown) [facility]) Result panel 1658 (unknown) (no date) (unknown) [facility]) Result panel 1659 (unknown) (no date) (unknown) [facility]) Result panel 1660 (unknown) (no date) (unknown) [facility]) Result panel 1661 (unknown) (no date) (unknown) [facility]) Result panel 1662 (unknown) (no date) (unknown) [facility]) Result panel 1663 (unknown) (no date) (unknown) [facility]) Result panel 1664 (unknown) (no date) (unknown) [facility]) Result panel 1665 (unknown) (no date) (unknown) [facility]) Result panel 1666 (unknown) (no date) (unknown) [facility]) Result panel 1667 (unknown) (no date) (unknown) [facility]) Result panel 1668 (unknown) (no date) (unknown) [facility]) Result panel 1669 (unknown) (no date) (unknown) [facility]) Result panel 1670 (unknown) (no date) (unknown) [facility]) Result panel 1671 (unknown) (no date) (unknown) [facility]) Result panel 1672 (unknown) (no date) (unknown) [facility]) Result panel 1673 (unknown) (no date) (unknown) [facility]) Result panel 1674 (unknown) (no date) (unknown) [facility]) Result panel 1675 (unknown) (no date) (unknown) [facility]) Result panel 1676 (unknown) (no date) (unknown) [facility]) Result panel 1677 (unknown) (no date) (unknown) [facility]) Result panel 1678 (unknown) (no date) (unknown[facility]) Result panel 1679 (unknown) (no date) (unknown) [facility]) Result panel 1680 (unknown) (no date) (unknown) [facility]) Result panel 1681 (unknown) (no date) (unknown) [facility]) Result panel 1682 (unknown) (no date) (unknown) [facility]) Result panel 1683 (unknown) (no date) (unknown) [facility]) Result panel 1684 (unknown) (no date) (unknown) [facility]) Result panel 1685 (unknown) (no date) (unknown) [facility]) Result panel 1686 (unknown) (no date) (unknown) [facility]) Result panel 1687 (unknown) (no date) (unknown) [facility]) Result panel 1688 (unknown) (no date) (unknown) [facility]) Result panel 1689 (unknown) (no date) (unknown) [facility]) Result panel 1690 (unknown) (no date) (unknown) [facility]) Result panel 1691 (unknown) (no date) (unknown) [facility]) Result panel 1692 (unknown) (no date) (unknown) [facility]) Result panel 1693 (unknown) (no date) (unknown) [facility]) Result panel 1694 (unknown) (no date) (unknown) [facility]) Result panel 1695 (unknown) (no date) (unknown) [facility]) Result panel 1696 (unknown) (no date) (unknown) [facility]) Result panel 1697 (unknown) (no date) (unknown) [facility]) Result panel 1698 (unknown) (no date) (unknown) [facility]) Result panel 1699 (unknown) (no date) (unknown) [facility]) Result panel 1700 (unknown) (no date) (unknown) [facility]) Result panel 1701 (unknown) (no date) (unknown) [facility]) Result panel 1702 (unknown) (no date) (unknown) [facility]) Result panel 1703 (unknown) (no date) (unknown) [facility]) Result panel 1704 (unknown) (no date) (unknown) [facility]) Result panel 1705 (unknown) (no date) (unknown) [facility]) Result panel 1706 (unknown) (no date) (unknown) [facility]) Result panel 1707 (unknown) (no date) (unknown) [facility]) Result panel 1708 (unknown) (no date) (unknown) [facility]) Result panel 1709 (unknown) (no date) (unknown) [facility]) Result panel 1710 (unknown) (no date) (unknown) [facility]) Result panel 1711 (unknown) (no date) (unknown) [facility]) Result panel 1712 (unknown) (no date) (unknown) [facility]) Result panel 1713 (unknown) (no date) (unknown) [facility]) Result panel 1714 (unknown) (no date) (unknown) [facility]) Result panel 1715 (unknown) (no date) (unknown) [facility]) Result panel 1716 (unknown) (no date) (unknown) [facility]) Result panel 1717 (unknown) (no date) (unknown) [facility]) Result panel 1718 (unknown) (no date) (unknown) [facility]) Result panel 1719 (unknown) (no date) (unknown) [facility]) Result panel 1720 (unknown) (no date) (unknown) [facility]) Result panel 1721 (unknown) (no date) (unknown) [facility]) Result panel 1722 (unknown) (no date) (unknown) [facility]) Result panel 1723 (unknown) (no date) (unknown) [facility]) Result panel 1724 (unknown) (no date) (unknown) [facility]) Result panel 1725 (unknown) (no date) (unknown) [facility]) Result panel 1726 (unknown) (no date) (unknown) [facility]) Result panel 1727 (unknown) (no date) (unknown) [facility]) Result panel 1728 (unknown) (no date) (unknown) [facility]) Result panel 1729 (unknown) (no date) (unknown) [facility]) Result panel 1730 (unknown) (no date) (unknown) [facility]) Result panel 1731 (unknown) (no date) (unknown) [facility]) Result panel 1732 (unknown) (no date) (unknown) [facility]) Result panel 1733 (unknown) (no date) (unknown) [facility]) Result panel 1734 (unknown) (no date) (unknown) [facility]) Result panel 1735 (unknown) (no date) (unknown) [facility]) Result panel 1736 (unknown) (no date) (unknown) [facility]) Result panel 1737 (unknown) (no date) (unknown) [facility]) Result panel 1738 (unknown) (no date) (unknown) [facility]) Result panel 1739 (unknown) (no date) (unknown) [facility]) Result panel 1740 (unknown) (no date) (unknown) [facility]) Result panel 1741 (unknown) (no date) (unknown) [facility]) Result panel 1742 (unknown) (no date) (unknown) [facility]) Result panel 1743 (unknown) (no date) (unknown) [facility]) Result panel 1744 (unknown) (no date) (unknown) [facility]) Result panel 1745 (unknown) (no date) (unknown) [facility]) Result panel 1746 (unknown) (no date) (unknown) [facility]) Result panel 1747 (unknown) (no date) (unknown) [facility]) Result panel 1748 (unknown) (no date) (unknown) [facility]) Result panel 1749 (unknown) (no date) (unknown) [facility]) Result panel 1750 (unknown) (no date) (unknown) [facility]) Result panel 1751 (unknown) (no date) (unknown) [facility]) Result panel 1752 (unknown) (no date) (unknown) [facility]) Result panel 1753 (unknown) (no date) (unknown) [facility]) Result panel 1754 (unknown) (no date) (unknown) [facility]) Result panel 1755 (unknown) (no date) (unknown) [facility]) Result panel 1756 (unknown) (no date) (unknown) [facility]) Result panel 1757 (unknown) (no date) (unknown) [facility]) Result panel 1758 (unknown) (no date) (unknown) [facility]) Result panel 1759 (unknown) (no date) (unknown) [facility]) Result panel 1760 (unknown) (no date) (unknown) [facility]) Result panel 1761 (unknown) (no date) (unknown) [facility]) Result panel 1762 (unknown) (no date) (unknown) [facility]) Result panel 1763 (unknown) (no date) (unknown) [facility]) Result panel 1764 (unknown) (no date) (unknown) [facility]) Result panel 1765 (unknown) (no date) (unknown) [facility]) Result panel 1766 (unknown) (no date) (unknown) [facility]) Result panel 1767 (unknown) (no date) (unknown) [facility]) Result panel 1768 (unknown) (no date) (unknown) [facility]) Result panel 1769 (unknown) (no date) (unknown) [facility]) Result panel 1770 (unknown) (no date) (unknown) [facility]) Result panel 1771 (unknown) (no date) (unknown) [facility]) Result panel 1772 (unknown) (no date) (unknown) [facility]) Result panel 1773 (unknown) (no date) (unknown) [facility]) Result panel 1774 (unknown) (no date) (unknown) [facility]) Result panel 1775 (unknown) (no date) (unknown) [facility]) Result panel 1776 (unknown) (no date) (unknown) [facility]) Result panel 1777 (unknown) (no date) (unknown) [facility]) Result panel 1778 (unknown) (no date) (unknown) [facility]) Result panel 1779 (unknown) (no date) (unknown) [facility]) Result panel 1780 (unknown) (no date) (unknown) [facility]) Result panel 1781 (unknown) (no date) (unknown) [facility]) Result panel 1782 (unknown) (no date) (unknown) [facility]) Result panel 1783 (unknown) (no date) (unknown) [facility]) Result panel 1784 (unknown) (no date) (unknown) [facility]) Result panel 1785 (unknown) (no date) (unknown) [facility]) Result panel 1786 (unknown) (no date) (unknown) [facility]) Result panel 1787 (unknown) (no date) (unknown) [facility]) Result panel 1788 (unknown) (no date) (unknown) [facility]) Result panel 1789 (unknown) (no date) (unknown) [facility]) Result panel 1790 (unknown) (no date) (unknown) [facility]) Result panel 1791 (unknown) (no date) (unknown) [facility]) Result panel 1792 (unknown) (no (unknown) (unknown) (no value) (units (unk nown) date) unknown) (unknown) (no (unknown) (unknown) [id number] (units (unkno wn) date) unknown) (unknown) (no (unknown) (unknown) ADHD (units (unkno wn) date) unknown) (unknown) (no (unknown) (unknown) Acne (units (unkno wn) date) unknown) (unknown) (no (unknown) (unknown) Age/Sex: 22 / F (units (unknown) date) unknown) (unknown) (no (unknown) (unknown) Anemia (-2020) (units (unknown) date) unknown) (unknown) (no (unknown) (unknown) Anesthesia (units (unk nown) date) unknown) (unknown) (no (unknown) (unknown) Anxiety (units (unkno wn) date) unknown) (unknown) (no (unknown) (unknown) Autism (units (unkno wn) date) unknown) (unknown) (no (unknown) (unknown) Bipolar disorder (units (unknown) date) unknown) (unknown) (no (unknown) (unknown) Brother Anxiety (units (unknown) date) unknown) (unknown) (no (unknown) (unknown) Cancer (units (unkno wn) date) unknown) (unknown) (no (unknown) (unknown) : 2000 (units (unknown) date) Acct:[id number] unknown) (unknown) (no (unknown) (unknown) Date of Service: (units (unknown) date) 09/27/22 unknown) (unknown) (no (unknown) (unknown) Date of (units (unkno wn) date) evaluation: unknown) 09/27/22 (unknown) (no (unknown) (unknown) Depression (units (unk nown) date) unknown) (unknown) (no (unknown) (unknown) Diabetes (units (unkno wn) date) mellitus unknown) (unknown) (no (unknown) (unknown) Family History (units (unknown) date) (Updated 07/04/22 unknown) @ 19:39 by Mckayla Marcano) (unknown) (no (unknown) (unknown) Father Diabetes (units (unknown) date) mellitus unknown) (unknown) (no (unknown) (unknown) Grandfather (units (un known) date) Diabetes mellitus unknown) (unknown) (no (unknown) (unknown) Grandfather (units (un known) date) Family unknown) estrangement (unknown) (no (unknown) (unknown) Grandmother (units (un known) date) Cancer unknown) (unknown) (no (unknown) (unknown) Grandmother (units (un known) date) Diabetes unknown) mellitus (unknown) (no (unknown) (unknown) H/O hand surgery (units (unknown) date) unknown) 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 (unknown) (no (unknown) (unknown) History of (units (unk nown) date) removal of skin unknown) mole (unknown) (no (unknown) (unknown) Hyperlipidemia (units (unknown) date) unknown) (unknown) (no (unknown) (unknown) Hypertension (units (u nknown) date) unknown) (unknown) (no (unknown) (unknown) [facility] (units (unknown) date) [address] [place] [address] unknown) [place] [address] (unknown) (no (unknown) (unknown) Labor and (units (unkn own) date) Delivery Triage unknown) Note (unknown) (no (unknown) (unknown) Lung cancer (units (un known) date) unknown) (unknown) (no (unknown) (unknown) Medical History (units (unknown) date) (Updated 07/04/22 unknown) @ 19:35 by Mckayla Marcano) (unknown) (no (unknown) (unknown) Mental health (units ( unknown) date) problem unknown) (unknown) (no (unknown) (unknown) Mother (units (unkno wn) date) Gestational unknown) diabetes (unknown) (no (unknown) (unknown) Ovarian cyst (units (u nknown) date) () unknown) (unknown) (no (unknown) (unknown) PFSH (units (unkno wn) date) unknown) (unknown) (no (unknown) (unknown) PID (acute (units (unk nown) date) pelvic unknown) inflammatory disease) (unknown) (no (unknown) (unknown) PTSD (units (unkno wn) date) (post-traumatic unknown) stress disorder) () (unknown) (no (unknown) (unknown) Patient: (units (unkno wn) date) Blane,Piper N unknown) MR#: [id number] (unknown) (no (unknown) (unknown) Prostate cancer (units (unknown) date) unknown) (unknown) (no (unknown) (unknown) Provider: (units (unkn own) date) Cheryle Reza unknown) D.O. 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 (unknown) (no (unknown) (unknown) Schizophrenia (units ( unknown) date) unknown) (unknown) (no (unknown) (unknown) Seizures (-2002) (units (unknown) date) unknown) (unknown) (no (unknown) [...] unknown) 04/07/22 @ 15:50 by Lindsay Ruiz [facility]) (unknown) (no (unknown) (unknown) Surgical History (units (unknown) date) (Updated 07/04/22 unknown) @ 19:35 by Mckayla Marcano) (unknown) (no (unknown) (unknown) Type(s) of (units (unk nown) date) exercise: walking unknown) (unknown) (no (unknown) (unknown) Visit (units (unkno wn) date) Information unknown) (unknown) (no (unknown) (unknown) alcohol intake: (units (unknown) date) never unknown) (unknown) (no (unknown) (unknown) caffeine: Yes (units ( unknown) date) (occasionally, unknown) aware of 200mg limit) (unknown) (no (unknown) (unknown) carbon monox (units (u nknown) date) detector in home: unknown) Yes (unknown) (no (unknown) (unknown) current (units (unkno [...] (unknown) date) year weight has: unknown) other ([id number] lb) (unknown) (no (unknown) (unknown) education level: (units (unknown) date) high school unknown) (unknown) (no (unknown) (unknown) fire (units (unkno wn) date) 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 unknown) home: Yes (unknown) (no (unknown) (unknown) firearms in (units (un known) date) home: Yes unknown) firearms unloaded and locked: Yes (unknown) (no (unknown) (unknown) household (units (unkn own) date) members: spouse unknown) (unknown) (no (unknown) (unknown) housing: (units (unkno wn) date) apartment unknown) (unknown) (no (unknown) (unknown) lives (units (unkno wn) date) independently: unknown) Yes (unknown) (no (unknown) (unknown) marital status: (units (unknown) date) unknown) (unknown) (no (unknown) (unknown) number of (units (unkn own) date) children: 0 unknown) (unknown) (no (unknown) (unknown) occupational (units (u nknown) date) status: unknown) unemployed (unknown) (no (unknown) (unknown) pets and (units (unkno wn) date) animals: Yes (1 unknown) dog 1 cat; aware of toxo) (unknown) (no (unknown) (unknown) seatbelt use: (units ( unknown) date) always unknown) (unknown) (no (unknown) (unknown) second hand (units (un known) date) exposure: Yes unknown) (while visiting family (mom smokes)) (unknown) (no (unknown) (unknown) special mirella (units ( unknown) date) needs: No unknown) (unknown) (no (unknown) (unknown) substance use (units ( unknown) date) type: marijuana unknown) (quit when she learned she was ) (unknown) (no (unknown) (unknown) travel history: (units [...] detector in home: unknown) Yes Result panel 1793 (unknown) (no date) (unknown) (unknown) 0.2 e.u./dl (unkn own) (unknown) (no date) (unknown) (unknown) 1.025 (units (unkn own) unknown) (unknown) (no date) (unknown) (unknown) 6.0 (units (unkn own) unknown) (unknown) (no date) (unknown) (unknown) CLEAR (units (unkn own) unknown) (unknown) (no date) (unknown) (unknown) NEGATIVE (units (unkn own) unknown) (unknown) (no date) (unknown) (unknown) NEGATIVE g/dl (unkn own) (unknown) (no date) (unknown) (unknown) TRACE (units (unkn own) unknown) (unknown) (no date) (unknown) (unknown) YELLOW (units (unkn own) unknown) (unknown) (no date) (unknown) (unknown) YELLOW (units (unkn own) unknown) Result panel 1794 (unknown) (no date) (unknown) (unknown) 0.2 e.u./dl (unkn own) (unknown) (no date) (unknown) (unknown) 1 (units (unkn own) unknown) (unknown) (no date) (unknown) (unknown) 1-5/HPF (units (unkn own) unknown) (unknown) (no date) (unknown) (unknown) 1.025 (units (unkn own) unknown) (unknown) (no date) (unknown) (unknown) 6.0 (units (unkn own) unknown) (unknown) (no date) (unknown) (unknown) CLEAR (units (unkn own) unknown) (unknown) (no date) (unknown) (unknown) NEGATIVE (units (unkn own) unknown) (unknown) (no date) (unknown) (unknown) NEGATIVE g/dl (unkn own) (unknown) (no date) (unknown) (unknown) None Seen (units (unk nown) unknown) (unknown) (no date) (unknown) (unknown) None Seen (units (unk nown) unknown) (unknown) (no date) (unknown) (unknown) Specimen (units (unkn own) Cultured unknown) (unknown) (no date) (unknown) (unknown) TRACE (units (unkn own) unknown) (unknown) (no date) (unknown) (unknown) YELLOW (units (unkn own) unknown) (unknown) (no date) (unknown) (unknown) YELLOW (units (unkn own) unknown) Result panel 1795 (unknown) (no date) (unknown) (unknown) Negative (units (unkn own) unknown) (unknown) (no date) (unknown) (unknown) Negative (units (unkn own) unknown) Result panel 1796 (unknown) (no date) (unknown) (unknown) (no value) (units (un known) unknown) (unknown) (no date) (unknown) (unknown) Few poly (units (unkn own) WBCs unknown) (unknown) (no date) (unknown) (unknown) None seen (units (unk nown) unknown) Result panel 1797 (unknown) (no (unknown) (unknown) (no value) (units (unk nown) date) unknown) (unknown) (no (unknown) (unknown) (1) 27 weeks (units (u nknown) date) gestation of unknown) : (unknown) (no (unknown) (unknown) (2) (units (unkno wn) date) Gastroenteritis: unknown) (unknown) (no (unknown) (unknown) 09/28/22 0748 (units ( unknown) date) unknown) (unknown) (no (unknown) (unknown) [id number] (units (unkno wn) date) unknown) (unknown) (no (unknown) (unknown) 22-year-old (units (unknown) date) at 27 weeks and 3 unknown) days gestation with nausea, vomiting, vaginal (unknown) (no (unknown) (unknown) ADHD (units (unkno wn) date) unknown) (unknown) (no (unknown) (unknown) Acne (units (unkno wn) date) unknown) (unknown) (no (unknown) (unknown) Age/Sex: 22 / F (units (unknown) date) unknown) (unknown) (no (unknown) (unknown) AmniSure (units (unkno wn) date) negative. UA not unknown) suggestive of UTI and wet mount also negative. (unknown) (no (unknown) (unknown) Anemia (-2020) (units (unknown) date) unknown) (unknown) (no (unknown) (unknown) Anesthesia (units (unk nown) date) unknown) (unknown) (no (unknown) (unknown) Anxiety (units (unkno wn) date) unknown) (unknown) (no (unknown) (unknown) Autism (units (unkno wn) date) unknown) (unknown) (no (unknown) (unknown) Baseline (units (unknown) date) heart rate: 140 unknown) (unknown) (no (unknown) (unknown) Bipolar disorder (units (unknown) date) unknown) (unknown) (no (unknown) (unknown) Brother Anxiety (units (unknown) date) unknown) (unknown) (no (unknown) (unknown) Cancer (units (unkno wn) date) unknown) (unknown) (no (unknown) (unknown) Category of (units (un known) date) Tracing: Reactive unknown) (unknown) (no (unknown) (unknown) Comments/Additio (units (unknown) date) nal reasons for unknown) admission: (unknown) (no (unknown) (unknown) : 2000 (units (unknown) date) Acct:[id number] unknown) (unknown) (no (unknown) (unknown) Date of Service: (units (unknown) date) 09/27/22 unknown) (unknown) (no (unknown) (unknown) Date of (units (unkno wn) date) evaluation: unknown) 09/27/22 (unknown) (no (unknown) (unknown) Depression (units (unk nown) date) unknown) (unknown) (no (unknown) (unknown) Diabetes (units (unkno wn) date) mellitus unknown) (unknown) (no (unknown) (unknown) Diagnosis, (units (unk nown) date) Plan/Disposition unknown) (unknown) (no (unknown) (unknown) Evaluation (units (unk nown) date) unknown) (unknown) (no (unknown) (unknown) Family History (units (unknown) date) (Reviewed unknown) 09/28/22 @ 07:44 by Cheryle Reza DO) (unknown) (no (unknown) (unknown) Father Diabetes (units (unknown) date) mellitus unknown) (unknown) (no (unknown) (unknown) Monitor (units ( unknown) date) Decelerations: unknown) Absent (unknown) (no (unknown) (unknown) monitor (units ( unknown) date) accelerations: unknown) Present (unknown) (no (unknown) (unknown) Final Diagnosis (units (unknown) date) unknown) (unknown) (no (unknown) (unknown) Grandfather (units (un known) date) Diabetes mellitus unknown) (unknown) (no (unknown) (unknown) Grandfather (units (un known) date) Family unknown) estrangement (unknown) (no (unknown) (unknown) Grandmother (units (un known) date) Cancer unknown) (unknown) (no (unknown) (unknown) Grandmother (units (un known) date) Diabetes unknown) mellitus (unknown) (no (unknown) (unknown) H/O hand surgery (units (unknown) date) unknown) 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 (unknown) (no (unknown) (unknown) History of (units (unk nown) date) removal of skin unknown) mole (unknown) (no (unknown) (unknown) Hyperlipidemia (units (unknown) date) unknown) (unknown) (no (unknown) (unknown) Hypertension (units (u nknown) date) unknown) (unknown) (no (unknown) (unknown) [facility] (units (unknown) date) [address] unknown) [place] [address] (unknown) (no (unknown) (unknown) Labor and (units (unkn own) date) Delivery Triage unknown) Note (unknown) (no (unknown) (unknown) Lung cancer (units (un known) date) unknown) (unknown) (no (unknown) (unknown) Medical History (units (unknown) date) (Reviewed unknown) 09/28/22 @ 07:44 by Cheryle Reza DO) (unknown) (no (unknown) (unknown) Mental health (units ( unknown) date) problem unknown) (unknown) (no (unknown) (unknown) Mother (units (unkno wn) date) Gestational unknown) diabetes (unknown) (no (unknown) (unknown) Non-invasive (units (u nknown) date) Membranes unknown) Rupture Test: negative (unknown) (no (unknown) (unknown) OB Disposition: (units (unknown) date) home unknown) (unknown) (no (unknown) (unknown) On-call OB (units (unk nown) date) Provider: unknown) Cheryle Reza (unknown) (no (unknown) (unknown) Ovarian cyst (units (u nknown) date) () unknown) (unknown) (no (unknown) (unknown) PFSH (units (unkno wn) date) unknown) (unknown) (no (unknown) (unknown) PID (acute (units (unk nown) date) pelvic unknown) inflammatory disease) (unknown) (no (unknown) (unknown) PTSD (units (unkno wn) date) (post-traumatic unknown) stress disorder) () (unknown) (no (unknown) (unknown) Patient felt (units (u nknown) date) much improved unknown) after a L of LR and ondansetron IV. She has a OB (unknown) (no (unknown) (unknown) Patient is a (units (un known) date) 22-year-old unknown) at 27 weeks and 3 days gestation brought in by EMS (unknown) (no (unknown) (unknown) Patient: (units (unkno wn) date) Blane,Piper N unknown) MR#: [id number] (unknown) (no (unknown) (unknown) Plan/Disposition (units (unknown) date) unknown) (unknown) (no (unknown) (unknown) Plan: (units (unkno wn) date) unknown) (unknown) (no (unknown) (unknown) Primary OB (units (unk nown) date) Provider: Chaka unknown) Natalya Flores (unknown) (no (unknown) (unknown) Prostate cancer (units (unknown) date) unknown) (unknown) (no (unknown) (unknown) Provider: (units (unkn own) date) Cheryle Reza unknown) D.O. 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 (unknown) (no (unknown) (unknown) Schizophrenia (units ( unknown) date) unknown) (unknown) (no (unknown) (unknown) Seizures (-2002) (units (unknown) date) unknown) (unknown) (no (unknown) (unknown) Signed (units (unkno wn) date) By:<Electronicall unknown) y signed by Cheryle Reza D.O.> (unknown) (no (unknown) (unknown) Sister Anxiety (units (unknown) date) unknown) (unknown) (no (unknown) (unknown) Sister (units (unkno wn) date) Depression unknown) (unknown) (no (unknown) (unknown) Smoking Status: (units (unknown) date) Former smoker unknown) (former vape use, quit) (unknown) (no (unknown) (unknown) Social History (units (unknown) date) (Reviewed unknown) 09/28/22 @ 07:44 by Cheryle Reza DO) (unknown) (no (unknown) (unknown) Status: Acute (units ( unknown) date) unknown) (unknown) (no (unknown) (unknown) Surgical History (units (unknown) date) (Reviewed unknown) 09/28/22 @ 07:44 by Cheryle Reza DO) (unknown) (no (unknown) (unknown) Temperature (units (un known) date) 99.0? blood unknown) pressure 103/66 heart rate 88 (unknown) (no (unknown) (unknown) Type(s) of (units (unk nown) date) exercise: walking unknown) (unknown) (no (unknown) (unknown) Variability: (units (u nknown) date) Moderate (11-25) unknown) (unknown) (no (unknown) (unknown) Visit (units (unkno wn) date) Information unknown) (unknown) (no (unknown) (unknown) Vital Signs (units (un known) date) unknown) (unknown) (no (unknown) (unknown) Vital Signs: (units (u nknown) date) unknown) (unknown) (no (unknown) (unknown) alcohol intake: (units (unknown) date) never unknown) (unknown) (no (unknown) (unknown) appointment (units (un known) date) tomorrow morning unknown) with Dr. Flores which she will keep. (unknown) (no (unknown) (unknown) bleeding but she (units (unknown) date) also notes unknown) increased vaginal discharge. She has traveled (unknown) (no (unknown) (unknown) caffeine: Yes (units ( unknown) date) (occasionally, unknown) aware of 200mg limit) (unknown) (no (unknown) (unknown) carbon monox (units (u nknown) date) detector in home: unknown) Yes (unknown) (no (unknown) (unknown) current (units (unkno wn) date) occupational unknown) exposures/hazards : No (unknown) (no (unknown) (unknown) daily servings (units (unknown) date) fruits/ve-4 unknown) (unknown) (no (unknown) (unknown) discharge and (units ( unknown) date) pelvic pain. NST unknown) reactive without concern for labor. (unknown) (no (unknown) (unknown) do you feel safe (units (unknown) date) at home: Yes unknown) (unknown) (no (unknown) (unknown) down. Baby has (units (unknown) date) also been less unknown) active and she has had some pelvic pain. No (unknown) (no (unknown) (unknown) due to nausea, (units (unknown) date) vomiting, vaginal unknown) discharge and pelvic pain. Today she has had (unknown) (no (unknown) (unknown) duration: 15-30 (units (unknown) date) minutes/day unknown) (unknown) (no (unknown) (unknown) during the past (units (unknown) date) year weight has: unknown) other (uqvcjsabif-15-20 lb) (unknown) (no (unknown) (unknown) education level: (units (unknown) date) high school unknown) (unknown) (no (unknown) (unknown) fire (units (unkno wn) date) 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 unknown) home: Yes (unknown) (no (unknown) (unknown) firearms in (units (un known) date) home: Yes unknown) firearms unloaded and locked: Yes (unknown) (no (unknown) (unknown) household (units (unkn own) date) members: spouse unknown) (unknown) (no (unknown) (unknown) housing: (units (unkno wn) date) apartment unknown) (unknown) (no (unknown) (unknown) lives (units (unkno wn) date) independently: unknown) Yes (unknown) (no (unknown) (unknown) marital status: (units (unknown) date) unknown) (unknown) (no (unknown) (unknown) number of (units (unkn own) date) children: 0 unknown) (unknown) (no (unknown) (unknown) occupational (units (u nknown) date) status: unknown) unemployed (unknown) (no (unknown) (unknown) pets and (units (unkno wn) date) animals: Yes (1 unknown) dog 1 cat; aware of toxo) (unknown) (no (unknown) (unknown) recently. (units (unkn own) date) unknown) (unknown) (no (unknown) (unknown) seatbelt use: (units ( unknown) date) always unknown) (unknown) (no (unknown) (unknown) second hand (units (un known) date) exposure: Yes unknown) (while visiting family (mom smokes)) (unknown) (no (unknown) (unknown) significant (units (unk nown) date) nausea and unknown) vomiting to the point that she is unable to keep anything (unknown) (no (unknown) (unknown) special mirella (units ( unknown) date) needs: No unknown) (unknown) (no (unknown) (unknown) substance use (units ( unknown) date) type: marijuana unknown) (quit when she learned she was ) (unknown) (no (unknown) (unknown) travel history: (units [...] detector in home: unknown) Yes Result panel 1798 (unknown) (no (unknown) (unknown) (no value) (units (unk nown) date) unknown) (unknown) (no (unknown) (unknown) (+6 lb) 104/68 N (units (unknown) date) unknown) (unknown) (no (unknown) (unknown) (-2 lb) 108/60 N (units (unknown) date) unknown) (unknown) (no (unknown) (unknown) (-4 lb) 100/70 N (units (unknown) date) unknown) (unknown) (no (unknown) (unknown) Genetic (units (unkn own) date) Screening/Teratolo unknown) gy Counseling - Includes patient, baby's father, or (unknown) (no (unknown) (unknown) -?-?-?-?-?-?-?-?- (units (unknown) date) ?-?-?-? unknown) (unknown) (no (unknown) (unknown) 09/28/22 (units (unkno wn) date) unknown) (unknown) (no (unknown) (unknown) 10/26/21 6 (units (unk nown) date) spontaneous unknown) (unknown) (no (unknown) (unknown) 10/27/20 5 (units (unk nown) date) spontaneous unknown) (unknown) (no (unknown) (unknown) [id number] (units (unkno wn) date) unknown) (unknown) (no (unknown) (unknown) 01/26/22 5 (units (unk nown) date) spontaneous unknown) (unknown) (no (unknown) (unknown) 08:22 (units (unkno wn) date) unknown) (unknown) (no (unknown) (unknown) 06/09/22 (units (unkno wn) date) unknown) (unknown) (no (unknown) (unknown) 06/29/20 5 (units (unk nown) date) spontaneous unknown) (unknown) (no (unknown) (unknown) 07/07/22 (units (unkno wn) date) unknown) (unknown) (no (unknown) (unknown) 11w 5d 123 lb (units ( unknown) date) unknown) (unknown) (no (unknown) (unknown) 08/11/22 (units (unkno wn) date) unknown) (unknown) (no (unknown) (unknown) 15w 5d 121 lb (units ( unknown) date) unknown) (unknown) (no (unknown) (unknown) 21 yo here (units (unknown) date) for IOB visit unknown) @11wk5d. An 8 week US was c/w LMP-TIFFANIE. H/o (unknown) (no (unknown) (unknown) 20w 5d 131 lb (units ( unknown) date) unknown) (unknown) (no (unknown) (unknown) @ 12wks--did not (units (unknown) date) start yet @ 20 unknown) weeks, was going to re-start (unknown) (no (unknown) (unknown) ADHD (units (unkno wn) date) unknown) (unknown) (no (unknown) (unknown) Abnormal lab (units (u nknown) date) values 1st unknown) trimester: discussed (unknown) (no (unknown) (unknown) Acne (units (unkno wn) date) unknown) (unknown) (no (unknown) (unknown) Add'l Plan (units (unk nown) date) Details unknown) (unknown) (no (unknown) (unknown) Age/Sex: 22 / F (units (unknown) date) Date of Service: unknown) (unknown) (no (unknown) (unknown) Allergies (units (unkn own) date) unknown) (unknown) (no (unknown) (unknown) [place], [place] (units ( unknown) date) [id number] unknown) (unknown) (no (unknown) (unknown) Anemia (-2020) (units (unknown) date) unknown) (unknown) (no (unknown) (unknown) Anesthesia (units (unk nown) date) unknown) (unknown) (no (unknown) (unknown) Aneuploidy (units (unk nown) date) Screening Offered: unknown) Accepted (undecided, will probably get quad (unknown) (no (unknown) (unknown) Anticipated (units (un known) date) course of unknown) care: discussed (unknown) (no (unknown) (unknown) Anxiety (units (unkno wn) date) unknown) (unknown) (no (unknown) (unknown) Assessment and (units (unknown) date) Plan unknown) (unknown) (no (unknown) (unknown) Attending Dr: (units ( unknown) date) Chaka Flores MD unknown) (unknown) (no (unknown) (unknown) Autism (units (unkno wn) date) unknown) (unknown) (no (unknown) (unknown) B6. On review of (units (unknown) date) options she unknown) loretta Ch, Rx sent. History of severe (unknown) (no (unknown) (unknown) BMI 24.6 (units (unkno wn) date) unknown) (unknown) (no (unknown) (unknown) BP 98/66 (units (unkno wn) date) unknown) (unknown) (no (unknown) (unknown) Bipolar disorder (units (unknown) date) unknown) (unknown) (no (unknown) (unknown) (units (unkno wn) date) Plan/Preferences unknown) (unknown) (no (unknown) (unknown) Planning (units (unknown) date) unknown) (unknown) (no (unknown) (unknown) Blood Pressure (units (unknown) date) Location Rt unknown) brachial (unknown) (no (unknown) (unknown) Blood (units (unkno wn) date) transfusions?: yes unknown) (Never had but would accept) (unknown) (no (unknown) (unknown) Breastfeed Preg (units (unknown) date) Comp Name unknown) (unknown) (no (unknown) (unknown) Brother Anxiety (units (unknown) date) unknown) (unknown) (no (unknown) (unknown) Caffeine use, (units ( unknown) date) Exercise and unknown) activity, work/environmental /hazards, Sexual (unknown) (no (unknown) (unknown) [place] with (units (unknown) date) her grandfather. unknown) Appears grandfather's no longer here with her (unknown) (no (unknown) (unknown) Cancer (units (unkno wn) date) unknown) (unknown) (no (unknown) (unknown) Childbirth (units (unk nown) date) Classes: discussed unknown) (unknown) (no (unknown) (unknown) [facility]. 20 (units (unknown) date) week US normal unknown) (unknown) (no (unknown) (unknown) Current Estimate (units (unknown) date) 12/24/22 LMP unknown) (Certain) 27w 4d (unknown) (no (unknown) (unknown) Current (units (unknown) date) History unknown) (unknown) (no (unknown) (unknown) : 2000 (units (unknown) date) Acct:[id number] unknown) (unknown) (no (unknown) (unknown) Date of positive (units (unknown) date) home unknown) test: 04/10/22 (unknown) (no (unknown) (unknown) Date (units (unkno wn) date) unknown) (unknown) (no (unknown) (unknown) Del. Date (units (unkn own) date) GA/Weeks Labor unknown) Lgth Wt Sex Route Outcome Anesthesia Place (unknown) (no (unknown) (unknown) Delv (units (unkno wn) date) unknown) (unknown) (no (unknown) (unknown) Depression / (units (u nknown) date) anxiety is worse unknown) now, she does desire to restart medication. Rx (unknown) (no (unknown) (unknown) Depression (units (unk nown) date) unknown) (unknown) (no (unknown) (unknown) Depression: (units (un known) date) discussed unknown) (unknown) (no (unknown) (unknown) Dept at (units (unkno wn) date) . unknown) (unknown) (no (unknown) (unknown) Piper is here (units (unknown) date) for a FRED visit @ unknown) 15wk5d. She is accompanied by her (unknown) (no (unknown) (unknown) Piper presents (units (unknown) date) for an are OB unknown) visit at 20 weeks 5 days. [place], (unknown) (no (unknown) (unknown) Diabetes mellitus (units (unknown) date) unknown) (unknown) (no (unknown) (unknown) Diet and Exercise (units (unknown) date) unknown) (unknown) (no (unknown) (unknown) Documented By: (units (unknown) date) Chaka Flores MD unknown) 09/28/22 0821 (unknown) (no (unknown) (unknown) Draft (units (unkno wn) date) unknown) (unknown) (no (unknown) (unknown) TIFFANIE Calculator (units (unknown) date) unknown) (unknown) (no (unknown) (unknown) EGA Weight BP (units ( unknown) date) UGlucose unknown) (unknown) (no (unknown) (unknown) Estimated (units (unkn own) date) Delivery Date unknown) Method Current (unknown) (no (unknown) (unknown) Family History (units (unknown) date) (Reviewed 09/28/22 unknown) @ 07:44 by Cheryle Reza DO) (unknown) (no (unknown) (unknown) Father Diabetes (units (unknown) date) mellitus unknown) (unknown) (no (unknown) (unknown) Father of Baby: (units (unknown) date) same unknown) (unknown) (no (unknown) (unknown) [facility]) (unknown) (no (unknown) (unknown) First Trimester (units (unknown) date) Education unknown) Checklist (unknown) (no (unknown) (unknown) (all-5 week (units (unknown) date) SABs) unknown) (unknown) (no (unknown) (unknown) Genetic Screening (units (unknown) date) + Counseling unknown) (unknown) (no (unknown) (unknown) Genetic Screening (units (unknown) date) unknown) (unknown) (no (unknown) (unknown) Grandfather (units [...] practice discussed, personnel (unknown) (no (unknown) (unknown) Height 5 ft 3 in (units (unknown) date) unknown) (unknown) (no (unknown) (unknown) Hepatitis C risk (units (unknown) date) evaluation: low unknown) risk (unknown) (no (unknown) (unknown) History of (units (unk nown) date) Hepatitis B: No unknown) (unknown) (no (unknown) (unknown) History of (units (unk nown) date) Hepatitis C: No unknown) 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 (unknown) (no (unknown) (unknown) History of (units (unk nown) date) removal of skin unknown) mole (unknown) (no (unknown) (unknown) [facility] (units (u nknown) date) unknown) (unknown) (no (unknown) (unknown) [place], (units (unknown) date) deployed unknown) (unknown) (no (unknown) (unknown) Hx # (units (u nknown) date) Pregnancies 0 unknown) Elective abortions 0 (unknown) (no (unknown) (unknown) Hx # Term (units (unkn own) date) Pregnancies 0 unknown) Ectopic pregnancies 0 (unknown) (no (unknown) (unknown) Hyperlipidemia (units (unknown) date) unknown) (unknown) (no (unknown) (unknown) Hypertension (units (u nknown) date) unknown) (unknown) (no (unknown) (unknown) will be (units (unknown) date) adopted?: no unknown) (unknown) (no (unknown) (unknown) Infection History (units (unknown) date) unknown) (unknown) (no (unknown) (unknown) Infectious (units [...] Staff unknown) (unknown) (no (unknown) (unknown) Intake Note: (units (u nknown) date) unknown) (unknown) (no (unknown) (unknown) Intake performed (units (unknown) date) by: Michele Saha unknown) (unknown) (no (unknown) (unknown) Intake (units (unkno wn) date) unknown) (unknown) (no (unknown) (unknown) LMP-TIFFANIE (units (unkno wn) date) unknown) (unknown) (no (unknown) (unknown) Live with someone (units (unknown) date) with TB or exposed unknown) to TB: No (unknown) (no (unknown) (unknown) [...] (unknown) (unknown) Medical History (units (unknown) date) (Reviewed 09/28/22 unknown) @ 07:44 by Cheryle Reza DO) (unknown) (no (unknown) (unknown) Mental health (units ( unknown) date) problem unknown) (unknown) (no (unknown) (unknown) Mother (units (unkno wn) date) Gestational unknown) diabetes (unknown) (no (unknown) (unknown) N Yes no 144 20 (units (unknown) date) absent 4wk unknown) (unknown) (no (unknown) (unknown) No Known Drug (units ( unknown) date) Allergies Allergy unknown) (Verified 08/11/22 12:00) (unknown) (no (unknown) (unknown) Notes (units (unkno wn) date) unknown) (unknown) (no (unknown) (unknown) Number of Living (units (unknown) date) Children 0 unknown) (unknown) (no (unknown) (unknown) Number of (units (unkn own) date) fetuses:: Single unknown) (unknown) (no (unknown) (unknown) Nutrition and (units ( unknown) date) weight gain unknown) counseling: special diet: discussed (unknown) (no (unknown) (unknown) OB Office Visit (units (unknown) date) unknown) (unknown) (no (unknown) (unknown) OB Visit Log (units (u nknown) date) unknown) (unknown) (no (unknown) (unknown) On control (units (unknown) date) at conception?: No unknown) (unknown) (no (unknown) (unknown) Other Estimates (units (unknown) date) 12/22/22 unknown) Ultrasound #1 27w 6d (unknown) (no (unknown) (unknown) Ovarian cyst (units (u nknown) date) () unknown) (unknown) (no (unknown) (unknown) PFSH (units (unkno wn) date) unknown) (unknown) (no (unknown) (unknown) PID (acute pelvic (units (unknown) date) inflammatory unknown) disease) (unknown) (no (unknown) (unknown) PTSD (units (unkno wn) date) (post-traumatic unknown) stress disorder) () (unknown) (no (unknown) (unknown) Para 0 (units (unkno wn) date) Spontaneous unknown) abortions 4 (unknown) (no (unknown) (unknown) Partner history (units (unknown) date) of STD: denies hx unknown) (unknown) (no (unknown) (unknown) Partner history (units (unknown) date) of genital herpes: unknown) No (unknown) (no (unknown) (unknown) Partner: [place] (units (unknown) date) Sites unknown) (unknown) (no (unknown) (unknown) Past Pregnancies (units (unknown) date) unknown) (unknown) (no (unknown) (unknown) Patient's age 37 (units (unknown) date) years or older as unknown) of estimated date of delivery: No (unknown) (no (unknown) (unknown) Patient: (units (unkno wn) date) Piper Arguelles N unknown) MR#: [id number] (unknown) (no (unknown) (unknown) 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: CHAR (units (unknown) date) Deloris Garg unknown) (unknown) (no (unknown) (unknown) Personal history (units (unknown) date) of STD: other (PID unknown) (unknown bacterial agent) in 12/2021) (unknown) (no (unknown) (unknown) Personal history (units (unknown) date) of genital herpes: unknown) No (unknown) (no (unknown) (unknown) Position Sitting (units (unknown) date) unknown) (unknown) (no (unknown) (unknown) History (units (unknown) date) unknown) (unknown) (no (unknown) (unknown) type:: (units (unknown) date) First unknown) (unknown) (no (unknown) (unknown) (units (unkno wn) date) Education unknown) (unknown) (no (unknown) (unknown) Initial (units (unknown) date) Assessment unknown) (unknown) (no (unknown) (unknown) Specific (units (unknown) date) Issues/Plans unknown) (unknown) (no (unknown) (unknown) Testing: (units (unknown) date) discussed unknown) (unknown) (no (unknown) (unknown) Visit (units (unknown) date) unknown) (unknown) (no (unknown) (unknown) (units (unkno wn) date) education packet: unknown) Child education/plan, symptoms, (unknown) (no (unknown) (unknown) Primary Care (units (u nknown) date) Provider: CHAR Puentes unknown) [place] (unknown) (no (unknown) (unknown) Primary Ob (units (unk nown) date) Provider: unknown) Tyesha Brito (unknown) (no (unknown) (unknown) Prior (units (unkno wn) date) GBS-Infected unknown) child: No (unknown) (no (unknown) (unknown) Prostate cancer (units (unknown) date) unknown) (unknown) (no (unknown) (unknown) Providers (units (unkn own) date) unknown) (unknown) (no (unknown) (unknown) Pt here for OB (units (unknown) date) Check unknown) (unknown) (no (unknown) (unknown) Rash or viral (units ( unknown) date) illness since last unknown) menstrual period: No (unknown) (no (unknown) (unknown) Reason For Visit (units (unknown) date) unknown) (unknown) (no (unknown) (unknown) Recent travel (units ( unknown) date) outside of unknown) country?: No 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 (unknown) (no (unknown) (unknown) Recurrent (units (unkn own) date) loss or unknown) a stillbirth: Yes (unknown) (no (unknown) (unknown) Reports (units (unkno wn) date) 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 (unknown) (no (unknown) (unknown) Sabs x4 @5-6 (units (u nknown) date) weeks. She passed unknown) a small clot a week ago, then had BRB yesterday (unknown) (no (unknown) (unknown) Safety (units (unkno wn) date) unknown) (unknown) (no (unknown) (unknown) Schizophrenia (units ( unknown) date) unknown) (unknown) (no (unknown) (unknown) Seizures (-2002) (units (unknown) date) unknown) (unknown) (no (unknown) (unknown) Signed By: (units (unk nown) date) unknown) (unknown) (no (unknown) (unknown) Sister Anxiety (units (unknown) date) unknown) (unknown) (no (unknown) (unknown) Sister Depression (units (unknown) date) unknown) (unknown) (no (unknown) (unknown) Smoking Status: (units (unknown) date) Former smoker unknown) (former vape use, quit) (unknown) (no (unknown) (unknown) Social History (units (unknown) date) unknown) (unknown) (no (unknown) (unknown) Support (units (unkno wn) date) Person(s):: unknown) [place] (unknown) (no (unknown) (unknown) Surgical History (units (unknown) date) (Reviewed 09/28/22 unknown) @ 07:44 by Cheryle Reza DO) (unknown) (no (unknown) (unknown) Surrogate (units (unkn own) date) ?: no unknown) (unknown) (no (unknown) (unknown) Symptoms since (units (unknown) date) LMP: Reports unknown) amenorrhea, nausea, vomiting, fatigue, breast (unknown) (no (unknown) (unknown) TR No no 138 16 (units (unknown) date) absent 4wk unknown) (unknown) (no (unknown) (unknown) TR No no 162 12 (units (unknown) date) absent 4wk unknown) (unknown) (no (unknown) (unknown) Teratogen (units (unkn own) date) Exposures since unknown) LMP/Conception: Reports other (CT scan on 04/07/22) (unknown) (no (unknown) (unknown) Testing Education (units (unknown) date) unknown) (unknown) (no (unknown) (unknown) Testing education (units (unknown) date) completed: group B unknown) strep and Spina bifida testing (unknown) (no (unknown) (unknown) This note may (units ( unknown) date) have been all or unknown) partially generated using voice recognition (unknown) (no (unknown) (unknown) Tobacco + (units (unkn own) date) Substance Use unknown) (unknown) (no (unknown) (unknown) Tobacco Status (units (unknown) date) unknown) (unknown) (no (unknown) (unknown) Trimester:: 2nd (units (unknown) date) Trimester unknown) (14-<28wks) (unknown) (no (unknown) (unknown) Type(s) of (units (unk nown) date) exercise: walking unknown) (unknown) (no (unknown) (unknown) UProtein Movement (units (unknown) date) PreLabor FHR Fndl unknown) Ht Pres Edema Cerv Exam US/Comment Next Appt (unknown) (no (unknown) (unknown) Ultrasound (units (unk nown) date) Details:: 05/17/22 unknown) US @ [facility]: SIUP, CRL c/w 8wk5d, US-TIFFANIE 12/22/22, c/w (unknown) (no (unknown) (unknown) Ultrasound (units (unk nown) date) unknown) (unknown) (no (unknown) (unknown) Varicella/chicken (units (unknown) date) pox status: unknown) immunized (unknown) (no (unknown) (unknown) Visit Date: (units (un known) date) 06/09/22 Last unknown) Updated by: Tyesha Brito MD (unknown) (no (unknown) (unknown) Visit Date: (units (un known) date) 07/07/22 Last unknown) Updated by: Tyesha Brito MD (unknown) (no (unknown) (unknown) Visit Date: (units (un known) date) 08/11/22 Last unknown) Updated by: Tyesha Brito MD (unknown) (no (unknown) (unknown) Visit Reasons: OB (units (unknown) date) check *Daryl unknown) (unknown) (no (unknown) (unknown) Vitals (units (unkno wn) date) unknown) (unknown) (no (unknown) (unknown) Vitamins and (units (u nknown) date) iron, Diet and unknown) weight gain, Fish and mercury intake, Smoking, (unknown) (no (unknown) (unknown) WG (units (unkno wn) date) unknown) (unknown) (no (unknown) (unknown) Weeks gestation:: (units (unknown) date) 27 unknown) (unknown) (no (unknown) (unknown) Weight 139 lb (units ( unknown) date) unknown) (unknown) (no (unknown) (unknown) Zika virus (units (unk nown) date) exposure: No unknown) (unknown) (no (unknown) (unknown) a lot of nausea (units (unknown) date) with emesis, may unknown) last whole day. No improvement with Unisom / (unknown) (no (unknown) (unknown) activity, X-ray (units (unknown) date) exposure, unknown) Medication use, Sauna/hot tub use, Dental care, (unknown) (no (unknown) (unknown) administer (units (unk nown) date) currently for unknown) about 30 minutes. She states she will try to get (unknown) (no (unknown) (unknown) advised her that (units (unknown) date) she should return unknown) if she felt regular contractions. She (unknown) (no (unknown) (unknown) alcohol intake: (units (unknown) date) never unknown) (unknown) (no (unknown) (unknown) amh (units (unkno wn) date) unknown) (unknown) (no (unknown) (unknown) anyone in either (units (unknown) date) family with: unknown) (unknown) (no (unknown) (unknown) bleeding in 1st (units (unknown) date) trimester, unknown) resolved. Reported retroplacentall blood on US @ (unknown) (no (unknown) (unknown) blood, abnormal (units (unknown) date) vaginal discharge unknown) or leakage of fluid. She is feeling routine (unknown) (no (unknown) (unknown) caffeine: Yes (units ( unknown) date) (occasionally, unknown) aware of 200mg limit) (unknown) (no (unknown) (unknown) carbon monox (units (u nknown) date) detector in home: unknown) Yes (unknown) (no (unknown) (unknown) cfDNA low risk, (units (unknown) date) girl, MSAFP normal unknown) (unknown) (no (unknown) (unknown) current (units (unkno wn) date) occupational unknown) exposures/hazards: No (unknown) (no (unknown) (unknown) current plan. 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 She reports some increased (unknown) (no (unknown) (unknown) depression, (units (un known) date) anxiety with h/o unknown) suicide attempt 12/2021 restarted meds, Sertraline (unknown) (no (unknown) (unknown) depression, but (units (unknown) date) was trying to hold unknown) off on starting the sertraline since she (unknown) (no (unknown) (unknown) depression. (units (un known) date) Reports she unknown) currently has some suicidal thoughts but without any (unknown) (no (unknown) (unknown) described, visit (units (unknown) date) schedule reviewed, unknown) ultrasounds policy reviewed, coverage 24 (unknown) (no (unknown) (unknown) directed her to (units (unknown) date) go to ED. She unknown) reports that low-grade uterine activity, (unknown) (no (unknown) (unknown) discussed, (units (unk nown) date) tuberculosis unknown) exposure discussed, CMV discussed, Toxoplasmosis (unknown) (no (unknown) (unknown) do a Glucola (units (u nknown) date) between 26-28 unknown) weeks and we could send lab slip. Also if no care, (unknown) (no (unknown) (unknown) do you feel safe (units (unknown) date) at home: Yes unknown) (unknown) (no (unknown) (unknown) done at [facility] (units (unknown) date) health showed unknown) normal anatomy, placenta and normal cervical (unknown) (no (unknown) (unknown) duration: 15-30 (units (unknown) date) minutes/day unknown) (unknown) (no (unknown) (unknown) during the past (units (unknown) date) year weight has: unknown) other (yxcvufcoza-81-86 lb) (unknown) (no (unknown) (unknown) education level: (units (unknown) date) high school unknown) (unknown) (no (unknown) (unknown) feeling (units ( unknown) date) movement yet. Her unknown) cell free DNA was low risk, girl. Remainder of (unknown) (no (unknown) (unknown) movement. (units (unknown) date) Her MSAFP was unknown) normal. Her 20 week anatomy ultrasound, (unknown) (no (unknown) (unknown) fire extinguisher (units (unknown) date) in home: Yes unknown) (unknown) (no (unknown) (unknown) firearms in home: (units (unknown) date) Yes firearms unknown) unloaded and locked: Yes (unknown) (no (unknown) (unknown) grandfather today (units (unknown) date) who came from unknown) [place] to stay with her through (unknown) (no (unknown) (unknown) have occurred. If (units (unknown) date) there are any unknown) questions, please contact the Medical Records (unknown) (no (unknown) (unknown) hospitalized. (units ( unknown) date) Sees a Counselor. unknown) She had used both sertraline and Lexapro in (unknown) (no (unknown) (unknown) hours a day and (units (unknown) date) participation of unknown) father in care and office visits (unknown) (no (unknown) (unknown) household (units (unkn own) date) members: spouse unknown) (unknown) (no (unknown) (unknown) housing: (units (unkno wn) date) apartment unknown) (unknown) (no (unknown) (unknown) in a few weeks. (units (unknown) date) Advised her to unknown) continue with pelvic rest for now . She reports (unknown) (no (unknown) (unknown) in the area. (units (u nknown) date) Discussed trying unknown) to establish with care in [place] (unknown) (no (unknown) (unknown) irritability was (units (unknown) date) seen on the unknown) monitor but her cervix was not dilated. They (unknown) (no (unknown) (unknown) is going to lab (units (unknown) date) again today, will unknown) also try to draw her MSAFP today (our lab (unknown) (no (unknown) (unknown) knows moods can (units (unknown) date) worsen during unknown) . She was considering starting now (unknown) (no (unknown) (unknown) length, 3.6 cm. (units (unknown) date) She reports that unknown) she will be out of town until approximately 31 (unknown) (no (unknown) (unknown) like start of (units ( unknown) date) menses, stopped unknown) now. Seen in ED in [place] yesterday, (unknown) (no (unknown) (unknown) lives (units (unkno wn) date) independently: Yes unknown) (unknown) (no (unknown) (unknown) marital status: (units (unknown) date) unknown) (unknown) (no (unknown) (unknown) may occur. (units (unk nown) date) Occasional unknown) wrong-word or 'sound-alike' substitutions may have (unknown) (no (unknown) (unknown) number of (units (unkn own) date) children: 0 unknown) (unknown) (no (unknown) (unknown) occupational (units (u nknown) date) status: unemployed unknown) (unknown) (no (unknown) (unknown) occurred due to (units (unknown) date) the inherent unknown) limitations of voice recognition software. Please (unknown) (no (unknown) (unknown) otherwise. No (units ( unknown) date) cramping, unknown) bleeding, LOF or abnormal vaginal discharge. Not (unknown) (no (unknown) (unknown) pain. Has had a (units (unknown) date) stabbing pain unknown) about every 10 minutes, when ambulating, no pain (unknown) (no (unknown) (unknown) pets and animals: (units (unknown) date) Yes (1 dog 1 cat; unknown) aware of toxo) (unknown) (no (unknown) (unknown) placenta. She is (units (unknown) date) understandably unknown) very nervous. Ultrasound today shows viable 11 (unknown) (no (unknown) (unknown) precautions, (units (u nknown) date) Listeriosis unknown) prevention and Rubella Immunization (unknown) (no (unknown) (unknown) will (units (unknown) date) still proceed unknown) normally, with retroplacental blood resolving Will (unknown) (no (unknown) (unknown) labs (units ( unknown) date) were not drawn as unknown) they could not get enough blood with small (unknown) (no (unknown) (unknown) read the note (units ( unknown) date) carefully and unknown) recognize, using context, where these substitutions (unknown) (no (unknown) (unknown) reports she has (units (unknown) date) not had any unknown) persistent cramping since. Denies spotting of (unknown) (no (unknown) (unknown) reports (units (unkno wn) date) ultrasound showed unknown) baby with heartbeat, and blood seen behind the (unknown) (no (unknown) (unknown) screen if (units (unkn own) date) covered. For cell unknown) free DNA with labs today. Believe she is (unknown) (no (unknown) (unknown) screen) (units (unkno wn) date) unknown) (unknown) (no (unknown) (unknown) seatbelt use: (units ( unknown) date) always unknown) (unknown) (no (unknown) (unknown) second hand (units (un known) date) exposure: Yes unknown) (while visiting family (mom smokes)) (unknown) (no (unknown) (unknown) send for the 11 (units (unknown) date) wk US; if areas unknown) seen was large, then will repeat the ultrasound (unknown) (no (unknown) (unknown) sertraline. (units (un known) date) Desires unknown) aneuploidy/ NTD screening, desires cell free DNA assay (unknown) (no (unknown) (unknown) since is (units (unknown) date) deployed. She unknown) reports what sounds like left round ligament (unknown) (no (unknown) (unknown) software. (units (unkn own) date) Although every unknown) effort is made to edit content, regulatory technician errors (unknown) (no (unknown) (unknown) special mirella (units ( unknown) date) needs: No unknown) (unknown) (no (unknown) (unknown) substance use (units ( unknown) date) type: marijuana unknown) (quit when she learned she was ) (unknown) (no (unknown) (unknown) tenderness, (units (un known) date) urinary frequency, unknown) irritability, bloating and other (heartburn) (unknown) (no (unknown) (unknown) the past with (units ( unknown) date) both helping. Most unknown) recently on Lexapro which she stopped about 2 (unknown) (no (unknown) (unknown) though before (units ( unknown) date) traveling. I unknown) encouraged her to start the sertraline now. About 2 (unknown) (no (unknown) (unknown) though she is (units ( unknown) date) traveling shortly. unknown) Otherwise to try to find a lab where she can (unknown) (no (unknown) (unknown) through pharmacy. (units (unknown) date) unknown) (unknown) (no (unknown) (unknown) to buy one. (units (un known) date) Discussed flu unknown) vaccination, she desires but we had no one to (unknown) (no (unknown) (unknown) to get her blood (units (unknown) date) pressure checked unknown) in about a month if anyone has a BP cuff, or (unknown) (no (unknown) (unknown) travel history: (units (unknown) date) recent (domestic unknown) only) (unknown) (no (unknown) (unknown) ultrasound for 20 (units (unknown) date) weeks. unknown) (unknown) (no (unknown) (unknown) usually does at (units (unknown) date) 16 weeks onward, unknown) so she is a day early). Schedule anatomy (unknown) (no (unknown) (unknown) veins. She (units (unk nown) date) reports 2 unknown) additional attempts at blood draws without success. She (unknown) (no (unknown) (unknown) water heater temp (units (unknown) date) set < 120 deg: No unknown) (Will call landlord to adjust ) (unknown) (no (unknown) (unknown) week ,? (units (unknown) date) area of unknown) retroplacental blood. I reassured her that commonly (unknown) (no (unknown) (unknown) weeks ago she (units ( unknown) date) called with unknown) persistent bad cramping when in [place] and I (unknown) (no (unknown) (unknown) weeks prior to (units (unknown) date) positive unknown) test, having a feeling she may be . (unknown) (no (unknown) (unknown) weeks, in (units (unkn own) date) [place] with unknown) in loss for about 6 weeks, then 1.5-2 weeks in (unknown) (no (unknown) (unknown) well-balanced (units ( unknown) date) diet: daily or unknown) most days (unknown) (no (unknown) (unknown) working smoke (units ( unknown) date) detector in home: unknown) Yes Result panel [id number] (unknown) (no date) (unknown) (unknown) No growth. (units (un known) unknown) Result panel 1800 (unknown) (no (unknown) (unknown) (no value) (units (unk nown) date) unknown) (unknown) (no (unknown) (unknown) (+14 lb) 98/66 (units (unknown) date) unknown) (unknown) (no (unknown) (unknown) (+6 lb) 104/68 N (units (unknown) date) unknown) (unknown) (no (unknown) (unknown) (-2 lb) 108/60 N (units (unknown) date) unknown) (unknown) (no (unknown) (unknown) (-4 lb) 100/70 N (units (unknown) date) unknown) (unknown) (no (unknown) (unknown) (1) Depression: (units (unknown) date) unknown) (unknown) (no (unknown) (unknown) (2) : (units (unknown) date) unknown) (unknown) (no (unknown) (unknown) (3) Anxiety: (units (u nknown) date) unknown) (unknown) (no (unknown) (unknown) Genetic (units (unkn own) date) Screening/Teratol unknown) ogy Counseling - Includes patient, baby's father, or (unknown) (no (unknown) (unknown) -?-?-?-?-?-?-?-? (units (unknown) date) -?-?-?-? unknown) (unknown) (no (unknown) (unknown) 09/28/22 0849 (units ( unknown) date) unknown) (unknown) (no (unknown) (unknown) 09/28/22 (units (unkno wn) date) unknown) (unknown) (no (unknown) (unknown) 10/26/21 6 (units (unk nown) date) spontaneous unknown) (unknown) (no (unknown) (unknown) 10/27/20 5 (units (unk nown) date) spontaneous unknown) (unknown) (no (unknown) (unknown) [id number] (units (unkno wn) date) unknown) (unknown) (no (unknown) (unknown) 01/26/22 5 (units (unk nown) date) spontaneous unknown) (unknown) (no (unknown) (unknown) 08:22 (units (unkno wn) date) unknown) (unknown) (no (unknown) (unknown) 06/09/22 (units (unkno wn) date) unknown) (unknown) (no (unknown) (unknown) 06/29/20 5 (units (unk nown) date) spontaneous unknown) (unknown) (no (unknown) (unknown) 07/07/22 (units (unkno wn) date) unknown) (unknown) (no (unknown) (unknown) 11w 5d 123 lb (units ( unknown) date) unknown) (unknown) (no (unknown) (unknown) 08/11/22 (units (unkno wn) date) unknown) (unknown) (no (unknown) (unknown) 15w 5d 121 lb (units ( unknown) date) unknown) (unknown) (no (unknown) (unknown) 21 yo here (units (unknown) date) for IOB visit unknown) @11wk5d. An 8 week US was c/w LMP-TIFFANIE. H/o (unknown) (no (unknown) (unknown) 20w 5d 131 lb (units ( unknown) date) unknown) (unknown) (no (unknown) (unknown) 27w 4d 139 lb (units ( unknown) date) unknown) (unknown) (no (unknown) (unknown) @ 12wks--did not (units (unknown) date) start yet @ 20 unknown) weeks, was going to re-start (unknown) (no (unknown) (unknown) ADHD (units (unkno wn) date) unknown) (unknown) (no (unknown) (unknown) Abnormal lab (units (u nknown) date) values 1st unknown) trimester: discussed (unknown) (no (unknown) (unknown) Acne (units (unkno wn) date) unknown) (unknown) (no (unknown) (unknown) Add'l Plan (units (unk nown) date) Details unknown) (unknown) (no (unknown) (unknown) Age/Sex: 22 / F (units (unknown) date) Date of Service: unknown) (unknown) (no (unknown) (unknown) Allergies (units (unkn own) date) unknown) (unknown) (no (unknown) (unknown) [place] (units ( unknown) date) [id number] unknown) (unknown) (no (unknown) (unknown) Anemia (-2020) (units (unknown) date) unknown) (unknown) (no (unknown) (unknown) Anesthesia (units (unk nown) date) unknown) (unknown) (no (unknown) (unknown) Aneuploidy (units [...] (unknown) Attending Dr: (units ( unknown) date) Chaka Flores unknown) (unknown) (no (unknown) (unknown) Autism (units (unkno wn) date) unknown) (unknown) (no (unknown) (unknown) B6. On review of (units (unknown) date) options she unknown) loretta hC, Rx sent. History of severe (unknown) (no (unknown) (unknown) BMI 24.6 (units (unkno wn) date) unknown) (unknown) (no (unknown) (unknown) BP 98/66 (units (unkno wn) date) unknown) (unknown) (no (unknown) (unknown) Bipolar disorder (units (unknown) date) unknown) (unknown) (no (unknown) (unknown) (units (unkno wn) date) Plan/Preferences unknown) (unknown) (no (unknown) (unknown) Planning (units (unknown) date) unknown) (unknown) (no (unknown) (unknown) Blood Pressure (units (unknown) date) Location Rt unknown) brachial (unknown) (no (unknown) (unknown) Blood (units (unkno wn) date) transfusions?: unknown) yes (Never had but would accept) (unknown) (no (unknown) (unknown) Breastfeed Preg (units (unknown) date) Comp Name unknown) (unknown) (no (unknown) (unknown) Brother Anxiety (units (unknown) date) unknown) (unknown) (no (unknown) (unknown) Caffeine use, (units ( unknown) date) Exercise and unknown) activity, work/environmenta l/hazards, Sexual (unknown) (no (unknown) (unknown) [place] with (units (unknown) date) her grandfather. unknown) Appears grandfather's no longer here with her (unknown) (no (unknown) (unknown) Cancer (units (unkno wn) date) unknown) (unknown) (no (unknown) (unknown) Childbirth (units (unk nown) date) Classes: unknown) discussed (unknown) (no (unknown) (unknown) [place] ED. (units (unknown) date) 20 week US normal unknown) (unknown) (no (unknown) (unknown) Current Estimate (units (unknown) date) 12/24/22 LMP unknown) (Certain) 27w 4d (unknown) (no (unknown) (unknown) Current (units (unkno wn) date) History unknown) (unknown) (no (unknown) (unknown) : 2000 (units (unknown) date) Acct:[id number] unknown) (unknown) (no (unknown) (unknown) Date of positive (units (unknown) date) home unknown) test: 04/10/22 (unknown) (no (unknown) (unknown) Date (units (unkno wn) date) unknown) (unknown) (no (unknown) (unknown) Del. Date (units (unkn own) date) GA/Weeks Labor unknown) Lgth Wt Sex Route Outcome Anesthesia Place (unknown) (no (unknown) (unknown) Delv (units (unkno wn) date) unknown) (unknown) (no (unknown) (unknown) Depression / (units (u nknown) date) anxiety is worse unknown) now, she does desire to restart medication. Rx (unknown) (no (unknown) (unknown) Depression Type: (units (unknown) date) unspecified unknown) Qualified Code(s): F32.A - Depression, (unknown) (no (unknown) (unknown) Depression (units (unk nown) date) unknown) (unknown) (no (unknown) (unknown) Depression: (units (un known) date) discussed unknown) (unknown) (no (unknown) (unknown) Dept at (units (unkno wn) date) . unknown) (unknown) (no (unknown) (unknown) Piper is here (units (unknown) date) for a FRED visit @ unknown) 15wk5d. She is accompanied by her (unknown) (no (unknown) (unknown) Piper presents (units (unknown) date) for an are OB unknown) visit at 20 weeks 5 days. [place], (unknown) (no (unknown) (unknown) Piper returns (units (unknown) date) today for her FRED unknown) visit now at 27+ 4 weeks gestational (unknown) (no (unknown) (unknown) Diabetes (units (unkno wn) date) mellitus unknown) (unknown) (no (unknown) (unknown) Diet and (units (unkno wn) date) Exercise unknown) (unknown) (no (unknown) (unknown) Documented By: (units (unknown) date) Chaka Flores unknownBlanca BEE 09/28/22 0821 (unknown) (no (unknown) (unknown) TIFFANIE Calculator (units (unknown) date) unknown) (unknown) (no (unknown) (unknown) EGA Weight BP (units ( unknown) date) UGlucose unknown) (unknown) (no (unknown) (unknown) Estimated (units (unkn own) date) Delivery Date unknown) Method Current (unknown) (no (unknown) (unknown) Family History (units (unknown) date) (Reviewed unknown) 09/28/22 @ 07:44 by Cheryle Reza DO) (unknown) (no (unknown) (unknown) Father Diabetes (units (unknown) date) mellitus unknown) (unknown) (no (unknown) (unknown) Father of Baby: (units (unknown) date) same unknown) (unknown) (no (unknown) (unknown) [facility] unknown) (unknown) (no (unknown) (unknown) First Trimester (units (unknown) date) Education unknown) Checklist (unknown) (no (unknown) (unknown) (all-5 week (units (unknown) date) SABs) unknown) (unknown) (no (unknown) (unknown) GTT (PREG) 1 Hour (units (unknown) date) PP 50gm Dose unknown) Today Z34 - Encounter for supervision of other (unknown) (no (unknown) (unknown) Genetic (units (unkno [...] date) unknown) (unknown) (no (unknown) (unknown) HIV 1 + 2 Ab/Ag (units (unknown) date) 4th Gen Combo unknown) Today Z - Encounter for supervision of other (unknown) (no (unknown) (unknown) HIV risk (units (unkno wn) date) evaluation: low unknown) risk (unknown) (no (unknown) (unknown) Health Center (units ( unknown) date) Education unknown) (unknown) (no (unknown) (unknown) Health center (units ( unknown) date) information: unknown) nature of practice discussed, personnel (unknown) (no (unknown) (unknown) Height 5 ft 3 in (units (unknown) date) unknown) (unknown) (no (unknown) (unknown) Hep C Virus Ab (units (unknown) date) w/Reflex Quant unknown) Today Z34 - Encounter for supervision of other (unknown) (no (unknown) (unknown) Hepatitis C risk (units (unknown) date) evaluation: low unknown) risk (unknown) (no (unknown) (unknown) History of (units (unk nown) date) Hepatitis B: No unknown) (unknown) (no (unknown) (unknown) History of (units (unk nown) date) Hepatitis C: No unknown) 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 (unknown) (no (unknown) (unknown) History of (units (unk nown) date) removal of skin unknown) mole (unknown) (no (unknown) (unknown) [facility] ([facility] (u [facility]known) [facility]) [facility]) (unknown) (no (unknown) (unknown) [place], (units (unknown) date) deployed unknown) (unknown) (no (unknown) (unknown) Hx # (units (u nknown) date) Pregnancies 0 unknown) Elective abortions 0 (unknown) (no (unknown) (unknown) Hx # Term (units (unkn own) date) Pregnancies 0 unknown) Ectopic pregnancies 0 (unknown) (no (unknown) (unknown) Hyperlipidemia (units (unknown) date) unknown) (unknown) (no (unknown) (unknown) Hypertension (units (u nknown) date) unknown) (unknown) (no (unknown) (unknown) Infant will be [...] Staff unknown) (unknown) (no (unknown) (unknown) Intake Note: (units (u nknown) date) unknown) (unknown) (no (unknown) (unknown) Intake performed (units (unknown) date) by: Saha,Bobbijo unknown) (unknown) (no (unknown) (unknown) Intake (units (unkno wn) date) unknown) (unknown) (no (unknown) (unknown) LMP-TIFFANIE (units (unkno wn) date) unknown) (unknown) (no [...] (unknown) (unknown) Medical History (units (unknown) date) (Reviewed unknown) 09/28/22 @ 07:44 by Cheryle Reza DO) (unknown) (no (unknown) (unknown) Mental health (units ( unknown) date) problem unknown) (unknown) (no (unknown) (unknown) Mother (units (unkno wn) date) Gestational unknown) diabetes (unknown) (no (unknown) (unknown) N Yes no 144 20 (units (unknown) date) absent 4wk unknown) (unknown) (no (unknown) (unknown) No Known Drug (units ( unknown) date) Allergies Allergy unknown) (Verified 08/11/22 12:00) (unknown) (no (unknown) (unknown) Notes (units (unkno wn) date) unknown) (unknown) (no (unknown) (unknown) Number of Living (units (unknown) date) Children 0 unknown) (unknown) (no (unknown) (unknown) Number of (units (unkn own) date) fetuses:: Single unknown) (unknown) (no (unknown) (unknown) Nutrition and (units ( unknown) date) weight gain unknown) counseling: special diet: discussed (unknown) (no (unknown) (unknown) OB Office Visit (units (unknown) date) unknown) (unknown) (no (unknown) (unknown) OB Visit Log (units (u nknown) date) unknown) (unknown) (no (unknown) (unknown) On control (units (unknown) date) at conception?: unknown) No (unknown) (no (unknown) (unknown) Orders (units (unkno wn) date) unknown) (unknown) (no (unknown) (unknown) Orders: (units (unkno wn) date) unknown) (unknown) (no (unknown) (unknown) Other Estimates (units (unknown) date) 12/22/22 unknown) Ultrasound #1 27w 6d (unknown) (no (unknown) (unknown) Ovarian cyst (units (u nknown) date) () unknown) (unknown) (no (unknown) (unknown) PFSH (units (unkno wn) date) unknown) (unknown) (no (unknown) (unknown) PID (acute (units (unk nown) date) pelvic unknown) inflammatory disease) (unknown) (no (unknown) (unknown) PTSD (units (unkno wn) date) (post-traumatic unknown) stress disorder) () (unknown) (no (unknown) (unknown) Para 0 (units [...] Patient: (units (unkno wn) date) Piper Arguelles N unknown) MR#: [id number] (unknown) (no (unknown) (unknown) 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: (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 ( unknown) date) [place]) (unknown) (no (unknown) (unknown) Personal history (units (unknown) date) of STD: other unknown) (PID (unknown bacterial agent) in 12/2021) (unknown) (no (unknown) (unknown) Personal history (units (unknown) date) of genital unknown) herpes: No (unknown) (no (unknown) (unknown) Position Sitting (units (unknown) date) unknown) (unknown) (no (unknown) (unknown) (units (unkn own) date) History unknown) (unknown) (no (unknown) (unknown) type:: (units (unknown) date) First unknown) (unknown) (no (unknown) (unknown) (units (unkno wn) date) Education unknown) (unknown) (no (unknown) (unknown) Initial (units (unknown) date) Assessment unknown) (unknown) (no (unknown) (unknown) Screen (units (unknown) date) Today Z34.83 - unknown) Encounter for supervision of other normal (unknown) (no (unknown) (unknown) (units (unkno wn) date) Specific unknown) Issues/Plans (unknown) (no (unknown) (unknown) (units (unkno wn) [...] own) date) unknown) (unknown) (no (unknown) (unknown) Pt here for OB (units (unknown) date) Check unknown) (unknown) (no (unknown) (unknown) Qualifiers: (units (un known) date) unknown) (unknown) (no (unknown) (unknown) Rash or viral (units ( unknown) date) illness since unknown) last menstrual period: No (unknown) (no (unknown) (unknown) Reason For Visit (units (unknown) date) unknown) (unknown) (no (unknown) (unknown) Recent travel (units ( unknown) date) outside of unknown) country?: No (unknown) (no (unknown) (unknown) Recurrent UTI (units ( unknown) date) () unknown) (unknown) (no (unknown) (unknown) Recurrent (units [...] siblings w/ autism) (unknown) (no (unknown) (unknown) Rh positive, (units (u nknown) date) will check unknown) results today, RhoGAM as needed. (unknown) (no (unknown) (unknown) Sabs x4 @5-6 (units (u nknown) date) weeks. She passed unknown) a small clot a week ago, then had BRB yesterday (unknown) (no (unknown) (unknown) Safety (units (unkno wn) date) unknown) (unknown) (no (unknown) (unknown) Schizophrenia (units ( unknown) date) unknown) (unknown) (no (unknown) (unknown) Seizures (-2003) (units (unknown) date) unknown) (unknown) (no (unknown) (unknown) Signed By: (units (unk nown) date) <Electronically unknown) signed by Chaka Flores MD> (unknown) (no (unknown) (unknown) Signed (units (unkno wn) date) unknown) (unknown) (no (unknown) (unknown) Sister Anxiety (units (unknown) date) unknown) (unknown) (no (unknown) (unknown) Sister (units (unkno wn) date) Depression unknown) (unknown) (no (unknown) (unknown) Smoking Status: (units (unknown) date) Former smoker unknown) (former vape use, quit) (unknown) (no (unknown) (unknown) Social History (units (unknown) date) unknown) (unknown) (no (unknown) (unknown) Status: Acute (units ( unknown) date) unknown) (unknown) (no (unknown) (unknown) Support (units (unkno wn) date) Person(s):: unknown) [place] (unknown) (no (unknown) (unknown) Surgical History (units (unknown) date) (Reviewed unknown) 09/28/22 @ 07:44 by Cheryle Reza DO) (unknown) (no (unknown) (unknown) Surrogate (units (unkn own) date) ?: no unknown) (unknown) (no (unknown) (unknown) Symptoms since (units (unknown) date) LMP: Reports unknown) amenorrhea, nausea, vomiting, fatigue, breast (unknown) (no (unknown) (unknown) TR No no 138 16 (units (unknown) date) absent 4wk unknown) (unknown) (no (unknown) (unknown) TR No no 162 12 (units (unknown) date) absent 4wk unknown) (unknown) (no (unknown) (unknown) Teratogen (units (unkn [...] (unknown) date) unknown) (unknown) (no (unknown) (unknown) Trimester:: 2nd (units (unknown) date) Trimester unknown) (14-<28wks) (unknown) (no (unknown) (unknown) Type and Screen (units (unknown) date) Today Z34.83 - unknown) Encounter for supervision of other normal (unknown) (no (unknown) (unknown) Type(s) of (units (unk nown) date) exercise: walking unknown) (unknown) (no (unknown) (unknown) UProtein Movement (units (unknown) date) PreLabor FHR Fndl unknown) Ht Pres Edema Cerv Exam US/Comment Next Appt (unknown) (no (unknown) (unknown) Ultrasound (units (unk nown) date) Details:: 05/17/22 unknown) [facility] @ [facility]: [facility], CRL c/w 8wk5d, US-TIFFANIE 12/22/22, c/w (unknown) (no (unknown) (unknown) Ultrasound (units (unk nown) date) unknown) (unknown) (no (unknown) (unknown) Varicella IgG (units ( unknown) date) Antibody Today unknown) Z34.83 - Encounter for supervision of other normal (unknown) (no (unknown) (unknown) Varicella/chicke (units (unknown) date) n pox status: unknown) immunized (unknown) (no (unknown) (unknown) Visit Date: (units (un known) date) 09/28/22 Last unknown) Updated by: Chaka Flores MD (unknown) (no (unknown) (unknown) Visit Date: (units (un known) date) 06/09/22 Last unknown) Updated by: Tyesha Brito MD (unknown) (no (unknown) (unknown) Visit Date: (units (un known) date) 07/07/22 Last unknown) Updated by: Tyesha Brito MD (unknown) (no (unknown) (unknown) Visit Date: (units (un known) date) 08/11/22 Last unknown) Updated by: Tyesha Brito MD (unknown) (no (unknown) (unknown) Visit Reasons: (units (unknown) date) OB check unknown) *Daryl (unknown) (no (unknown) (unknown) Vitals (units (unkno wn) date) unknown) (unknown) (no (unknown) (unknown) Vitamins and (units (u nknown) date) iron, Diet and unknown) weight gain, Fish and mercury intake, Smoking, (unknown) (no (unknown) (unknown) WG (units (unkno wn) date) unknown) (unknown) (no (unknown) (unknown) Weeks (units (unkno wn) date) gestation:: 27 unknown) (unknown) (no (unknown) (unknown) Weeks of (units (unkno wn) date) gestation: 27 unknown) weeks Qualified Code(s): Z3A.27 - 27 weeks (unknown) (no (unknown) (unknown) Weight 139 lb (units ( unknown) date) unknown) (unknown) (no (unknown) (unknown) Yes no 142 28 (units ( unknown) date) absent 3 wks unknown) (unknown) (no (unknown) (unknown) Zika virus (units (unk nown) date) exposure: No unknown) (unknown) (no (unknown) (unknown) a lot of nausea (units (unknown) date) with emesis, may unknown) last whole day. No improvement with Unisom / (unknown) (no (unknown) (unknown) activity, X-ray (units (unknown) date) exposure, unknown) Medication use, Sauna/hot tub use, Dental care, (unknown) (no (unknown) (unknown) administer (units (unk nown) date) currently for unknown) about 30 minutes. She states she will try to get (unknown) (no (unknown) (unknown) advised her that (units (unknown) date) she should return unknown) if she felt regular contractions. She (unknown) (no (unknown) (unknown) age. She was (units (u nknown) date) seen on the unknown) center last night with possible leakage of fluid (unknown) (no (unknown) (unknown) alcohol intake: (units (unknown) date) never unknown) (unknown) (no (unknown) (unknown) amh (units (unkno wn) date) unknown) (unknown) (no (unknown) (unknown) anyone in either (units (unknown) date) family with: unknown) (unknown) (no (unknown) (unknown) ay occur. (units (unkn own) date) Occasional unknown) wrong-word or 'sound-alike' substitutions may have (unknown) (no (unknown) (unknown) bleeding in 1st (units (unknown) date) trimester, unknown) resolved. Reported retroplacental bleed on US @ (unknown) (no (unknown) (unknown) blood, abnormal (units (unknown) date) vaginal discharge unknown) or leakage of fluid. She is feeling routine (unknown) (no (unknown) (unknown) but AmniSure was (units (unknown) date) negative and unknown) evaluation showed no issues of concern. Review of (unknown) (no (unknown) (unknown) caffeine: Yes (units ( unknown) date) (occasionally, unknown) aware of 200mg limit) (unknown) (no (unknown) (unknown) carbon monox (units (u nknown) date) detector in home: unknown) Yes (unknown) (no (unknown) (unknown) cfDNA low risk, (units (unknown) date) girl, MSAFP unknown) normal (unknown) (no (unknown) (unknown) current (units (unkno wn) date) occupational unknown) exposures/hazards : No (unknown) (no (unknown) (unknown) current plan. (units ( unknown) date) Reports she did unknown) have a suicide attempt this december, was (unknown) (no (unknown) (unknown) daily servings (units (unknown) date) fruits/ve-4 unknown) (unknown) (no (unknown) (unknown) deployed in (units (un known) date) [place] was on unknown) video chat for the visit. She reports some increased (unknown) (no (unknown) (unknown) depression, (units (un known) date) anxiety with h/o unknown) suicide attempt 12/2021 restarted meds, Sertraline (unknown) (no (unknown) (unknown) depression, but (units (unknown) date) was trying to unknown) hold off on starting the sertraline since she (unknown) (no (unknown) (unknown) depression. (units (un known) date) Reports she unknown) currently has some suicidal thoughts but without any (unknown) (no (unknown) (unknown) described, visit (units (unknown) date) schedule unknown) reviewed, ultrasounds policy reviewed, coverage 24 (unknown) (no (unknown) (unknown) directed her to (units (unknown) date) go to ED. She unknown) reports that low-grade uterine activity, (unknown) (no (unknown) (unknown) discussed, (units (unk nown) date) tuberculosis unknown) exposure discussed, CMV discussed, Toxoplasmosis (unknown) (no (unknown) (unknown) do a Glucola (units (u nknown) date) between 26-28 unknown) weeks and we could send lab slip. Also if no care, (unknown) (no (unknown) (unknown) do you feel safe (units (unknown) date) at home: Yes unknown) (unknown) (no (unknown) (unknown) done at [facility] (units (unknown) date) health showed unknown) normal anatomy, placenta and normal cervical (unknown) (no (unknown) (unknown) duration: 15-30 (units (unknown) date) minutes/day unknown) (unknown) (no (unknown) (unknown) during the past (units (unknown) date) year weight has: unknown) other (vadpttoeek-46-38 lb) (unknown) (no (unknown) (unknown) education level: (units (unknown) date) high school unknown) (unknown) (no (unknown) (unknown) feeling (units ( unknown) date) movement yet. Her unknown) cell free DNA was low risk, girl. Remainder of (unknown) (no (unknown) (unknown) movement. (units (unknown) date) Her MSAFP was unknown) normal. Her 20 week anatomy ultrasound, (unknown) (no (unknown) (unknown) fire (units (unkno wn) date) 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 unknown) home: Yes (unknown) (no (unknown) (unknown) firearms in (units (un known) date) home: Yes unknown) firearms unloaded and locked: Yes (unknown) (no (unknown) (unknown) gestation of (units (u nknown) date) unknown) (unknown) (no (unknown) (unknown) grandfather (units (un known) date) today who came unknown) from [place] to stay with her through (unknown) (no (unknown) (unknown) have occurred. 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 (units ( unknown) date) Sees a Counselor. unknown) She had used both sertraline and Lexapro in (unknown) (no (unknown) (unknown) hours a day and (units (unknown) date) participation of unknown) father in care and office visits (unknown) (no (unknown) (unknown) household (units (unkn own) date) members: spouse unknown) (unknown) (no (unknown) (unknown) housing: (units (unkno wn) date) apartment unknown) (unknown) (no (unknown) (unknown) in a few weeks. (units (unknown) date) Advised her to unknown) continue with pelvic rest for now . She reports (unknown) (no (unknown) (unknown) in the area. (units (u nknown) date) Discussed trying unknown) to establish with care in [place] (unknown) (no (unknown) (unknown) irritability was (units (unknown) date) seen on the unknown) monitor but her cervix was not dilated. They (unknown) (no (unknown) (unknown) is going to lab (units (unknown) date) again today, will unknown) also try to draw her MSAFP today (our lab (unknown) (no (unknown) (unknown) jw (units (unkno wn) date) unknown) (unknown) (no (unknown) (unknown) knows moods can (units (unknown) date) worsen during unknown) . She was considering starting now (unknown) (no (unknown) (unknown) length, 3.6 cm. (units (unknown) date) She reports that unknown) she will be out of town until approximately 31 (unknown) (no (unknown) (unknown) like start of (units ( unknown) date) menses, stopped unknown) now. Seen in ED in [place] yesterday, (unknown) (no (unknown) (unknown) lives (units (unkno wn) date) independently: unknown) Yes (unknown) (no (unknown) (unknown) marital status: (units (unknown) date) unknown) (unknown) (no (unknown) (unknown) normal (units (unkno wn) date) , third unknown) trimester, Z3A.27 - 27 weeks gestation of (unknown) (no (unknown) (unknown) number of (units (unkn own) date) children: 0 unknown) (unknown) (no (unknown) (unknown) occupational (units (u nknown) date) status: unknown) unemployed (unknown) (no (unknown) (unknown) occurred due to (units (unknown) date) the inherent unknown) limitations of voice recognition software. Please (unknown) (no (unknown) (unknown) of depression in (units (unknown) date) the past, unknown) re-initiation would be sensible at this point the (unknown) (no (unknown) (unknown) otherwise. No (units ( unknown) date) cramping, unknown) bleeding, LOF or abnormal vaginal discharge. Not (unknown) (no (unknown) (unknown) pain. Has had a (units (unknown) date) stabbing pain unknown) about every 10 minutes, when ambulating, no pain (unknown) (no (unknown) (unknown) pets and (units (unkno wn) date) animals: Yes (1 unknown) dog 1 cat; aware of toxo) (unknown) (no (unknown) (unknown) placenta. She is (units (unknown) date) understandably unknown) very nervous. Ultrasound today shows viable 11 (unknown) (no (unknown) (unknown) precautions, (units (u nknown) date) Listeriosis unknown) prevention and Rubella Immunization (unknown) (no (unknown) (unknown) will (units (unknown) date) still proceed unknown) normally, with retroplacental blood resolving Will (unknown) (no (unknown) (unknown) , third (units (unknown) date) trimester, Z3A.27 unknown) - 27 weeks gestation of (unknown) (no (unknown) (unknown) . Her (units (unknown) date) baby remains unknown) active but she denies contractions, bleeding, or (unknown) (no (unknown) (unknown) labs (units ( unknown) date) were not drawn as unknown) they could not get enough blood with small (unknown) (no (unknown) (unknown) read the note (units ( unknown) date) carefully and unknown) recognize, using context, where these substitutions (unknown) (no (unknown) (unknown) reassured that (units ( unknown) date) there was no unknown) significant risk to the infant and given her history (unknown) (no (unknown) (unknown) reports she has (units (unknown) date) not had any unknown) persistent cramping since. Denies spotting of (unknown) (no (unknown) (unknown) reports (units (unkno wn) date) ultrasound showed unknown) baby with heartbeat, and blood seen behind the (unknown) (no (unknown) (unknown) screen if (units (unkn own) date) covered. For cell unknown) free DNA with labs today. Believe she is (unknown) (no (unknown) (unknown) screen) (units (unkno wn) date) unknown) (unknown) (no (unknown) (unknown) seatbelt use: (units ( unknown) date) always unknown) (unknown) (no (unknown) (unknown) second hand (units (un known) date) exposure: Yes unknown) (while visiting family (mom smokes)) (unknown) (no (unknown) (unknown) send for the 11 (units (unknown) date) wk US; if areas unknown) seen was large, then will repeat the ultrasound (unknown) (no (unknown) (unknown) sertraline. (units (un known) date) Desires unknown) aneuploidy/ NTD screening, desires cell free DNA assay (unknown) (no (unknown) (unknown) significant (units (un known) date) change in vaginal unknown) discharge. 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 She unknown) reports what sounds like left round ligament (unknown) (no (unknown) (unknown) software. (units (unkn own) date) Although every unknown) effort is made to edit content, regulatory technician errors m (unknown) (no (unknown) (unknown) special mirella (units ( unknown) date) needs: No unknown) (unknown) (no (unknown) (unknown) started (units (unkno wn) date) sertraline but unknown) intends to do so in the next couple of days. Patient (unknown) (no (unknown) (unknown) substance use (units ( unknown) date) type: marijuana unknown) (quit when she learned she was ) (unknown) (no (unknown) (unknown) tenderness, (units (un known) date) urinary unknown) frequency, irritability, bloating and other (heartburn) (unknown) (no (unknown) (unknown) the past with (units ( unknown) date) both helping. unknown) Most recently on Lexapro which she stopped about 2 (unknown) (no (unknown) (unknown) though before (units ( unknown) date) traveling. I unknown) encouraged her to start the sertraline now. About 2 (unknown) (no (unknown) (unknown) though she is (units ( unknown) date) traveling unknown) shortly. Otherwise to try to find a lab where she can (unknown) (no (unknown) (unknown) through (units (unkno wn) date) pharmacy. unknown) (unknown) (no (unknown) (unknown) to buy one. (units (un known) date) Discussed flu unknown) vaccination, she desires but we had no one to (unknown) (no (unknown) (unknown) to get her blood (units (unknown) date) pressure checked unknown) in about a month if anyone has a BP cuff, or (unknown) (no (unknown) (unknown) travel history: (units (unknown) date) recent (domestic unknown) only) (unknown) (no (unknown) (unknown) ultrasound for (units (unknown) date) 20 weeks. unknown) (unknown) (no (unknown) (unknown) unspecified (units (un known) date) unknown) (unknown) (no (unknown) (unknown) usually does at (units (unknown) date) 16 weeks onward, unknown) so she is a day early). Schedule anatomy (unknown) (no (unknown) (unknown) veins. She (units (unk nown) date) reports 2 unknown) additional attempts at blood draws without success. She (unknown) (no (unknown) (unknown) water heater (units (u nknown) date) temp set < 120 unknown) deg: No (Will call landlord to adjust ) (unknown) (no (unknown) (unknown) week (units (unknown) date) ,? area of unknown) retroplacental blood. I reassured her that commonly (unknown) (no (unknown) (unknown) weeks ago she (units ( unknown) date) called with unknown) persistent bad cramping when in [place] and I (unknown) (no (unknown) (unknown) weeks prior to (units (unknown) date) positive unknown) test, having a feeling she may be . (unknown) (no (unknown) (unknown) weeks, in (units (unkn own) date) [place] with unknown) in loss for about 6 weeks, then 1.5-2 weeks in (unknown) (no (unknown) (unknown) well-balanced (units ( unknown) date) diet: daily or unknown) most days (unknown) (no (unknown) (unknown) will be drawn (units ( unknown) date) today along with unknown) her 1 hour GDM screen H+H. Patient has not yet (unknown) (no (unknown) (unknown) will be in 3 (units (u nknown) date) weeks or as unknown) needed. (unknown) (no (unknown) (unknown) working smoke (units ( unknown) date) detector in home: unknown) Yes Result panel 1801 (unknown) (no date) (unknown) (unknown) <135 index [id number] (unknown) (no date) (unknown) (unknown) <135 index (unkn own) (unknown) (no date) (unknown) (unknown) Non Reactive (units ( unknown) unknown) (unknown) (no date) (unknown) (unknown) Non Reactive (units 2 0507-0 unknown) Result panel 1802 (unknown) (no date) (unknown) (unknown) 0 /ul (unkn own) (unknown) (no date) (unknown) (unknown) 0.5 % (unkn own) (unknown) (no date) (unknown) (unknown) 0.8 % (unkn own) (unknown) (no date) (unknown) (unknown) 100 /ul (unkn own) (unknown) (no date) (unknown) (unknown) 1100 /ul (unkn own) (unknown) (no date) (unknown) (unknown) 14.2 % (unkn own) (unknown) (no date) (unknown) (unknown) 15.6 % (unkn own) (unknown) (no date) (unknown) (unknown) 26.2 pg (unkn own) (unknown) (no date) (unknown) (unknown) 262 x10 3/ul (unkn own) (unknown) (no date) (unknown) (unknown) 29.3 % (unkn own) (unknown) (no date) (unknown) (unknown) 3.72 x10 6/ul (unkn own) (unknown) (no date) (unknown) (unknown) 33.3 % (unkn own) (unknown) (no date) (unknown) (unknown) 5200 /ul (unkn own) (unknown) (no date) (unknown) (unknown) 600 /ul (unkn own) (unknown) (no date) (unknown) (unknown) 7.0 x10 3/ul (unkn own) (unknown) (no date) (unknown) (unknown) 74.2 % (unkn own) (unknown) (no date) (unknown) (unknown) 78.7 fl (unkn own) (unknown) (no date) (unknown) (unknown) 8.9 % (unkn own) (unknown) (no date) (unknown) (unknown) 9.8 g/dl (unkn own) Result panel 1803 (unknown) (no date) (unknown) (unknown) 88 mg/dl (unkn own) (unknown) (no date) (unknown) (unknown) 88 mg/dl (unkn own) Result panel 1804 (unknown) (no date) (unknown) (unknown) 16.1 iu/ml (unkn own) (unknown) (no date) (unknown) (unknown) 16.1 iu/ml (unkn own) (unknown) (no date) (unknown) (unknown) NEGATIVE s/c (unkn own) (unknown) (no date) (unknown) (unknown) NEGATIVE s/c (unkn own) Result panel 1805 (unknown) (no date) (unknown) (unknown) 16.1 iu/ml (unkn own) (unknown) (no date) (unknown) (unknown) 16.1 iu/ml (unkn own) (unknown) (no date) (unknown) (unknown) NEGATIVE (units (unkn own) unknown) (unknown) (no date) (unknown) (unknown) NEGATIVE (units (unkn own) unknown) (unknown) (no date) (unknown) (unknown) NEGATIVE s/c (unkn own) (unknown) (no date) (unknown) (unknown) NEGATIVE s/c (unkn own) Result panel 1806 (unknown) (no date) (unknown) (unknown) NEGATIVE (units (unkn own) unknown) (unknown) (no date) (unknown) (unknown) O Positive (units (un known) unknown) Result panel 1807 (unknown) (no date) (unknown) (unknown) (no value) (units (un known) unknown) (unknown) (no date) (unknown) (unknown) Mixed gram + (units ( unknown) osiel. Deemed unknown) unsuitable for further studies. Result panel 1808 (unknown) (no date) (unknown) (unknown) <135 index (unkn own) (unknown) (no date) (unknown) (unknown) <135 index (unkn own) (unknown) (no date) (unknown) (unknown) Non Reactive (units ( unknown) unknown) (unknown) (no date) (unknown) (unknown) Non Reactive (units ( unknown) unknown) Result panel 1809 (unknown) (no (unknown) (unknown) (no value) (units (unk nown) date) unknown) (unknown) (no (unknown) (unknown) [id number] (units (unkno wn) date) unknown) (unknown) (no (unknown) (unknown) 09/29/22 (units (unkno wn) date) unknown) (unknown) (no (unknown) (unknown) 1. Single live (units (unknown) date) intrauterine unknown) . (unknown) (no (unknown) (unknown) 06/09/2022, (units (un known) date) 14:18. unknown) (unknown) (no (unknown) (unknown) [id number] (units (unkn own) date) Street unknown) (unknown) (no (unknown) (unknown) 2. Cervical (units (un known) date) length is normal unknown) at 3.1 cm. Internal cervical os is closed. (unknown) (no (unknown) (unknown) A single living (units (unknown) date) intrauterine unknown) gestation is present. (unknown) (no (unknown) (unknown) Accession (units (unkn own) date) Number: unknown) [id number] (unknown) (no (unknown) (unknown) Age/Sex: 22 / F (units (unknown) date) Date of Service: unknown) (unknown) (no (unknown) (unknown) Amniotic fluid (units (unknown) date) index: 13.6 cm, unknown) normal range is 5-24 cm. (unknown) (no (unknown) (unknown) LISA Watson (units ( unknown) date) [id number] unknown) (unknown) (no (unknown) (unknown) Approved by: (units (u nknown) date) lei Corado M.D. on 09/29/2022 at 15:03 (unknown) (no (unknown) (unknown) COMPARISON: (units (un known) date) [facility], [place], OB <= 14 WEEKS FETUS, (unknown) (no (unknown) (unknown) Clinically (units (unk nown) date) estimated unknown) gestational age: 27 weeks 5 days (unknown) (no (unknown) (unknown) : 2000 (units (unknown) date) Acct:[id number] unknown) (unknown) (no (unknown) (unknown) Endovaginal (units (un known) date) scanning: Not unknown) performed. (unknown) (no (unknown) (unknown) Estimated date (units (unknown) date) of delivery unknown) (TIFFANIE) from first dating scan: 12/22/2022 (unknown) (no (unknown) (unknown) FINDINGS: (units (unkn own) date) unknown) (unknown) (no (unknown) (unknown) heart (units (un known) date) rate: 149 beats unknown) per minute. (unknown) (no (unknown) (unknown) First dating (units (u nknown) date) scan (date and unknown) location): 05/17/2022 (unknown) (no (unknown) (unknown) IMPRESSION: (units (un known) date) unknown) (unknown) (no (unknown) (unknown) INDICATIONS: (units (u nknown) date) CERVICAL LENGTH unknown) (unknown) (no (unknown) (unknown) [facility] (units (unknown) date) unknown) (unknown) (no (unknown) (unknown) LMP-based (units (unkn own) date) estimated date unknown) of delivery (TIFFANIE): 12/24/2022 (unknown) (no (unknown) (unknown) Last menstrual (units (unknown) date) period (LMP): unknown) 03/19/2022 (unknown) (no (unknown) (unknown) 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 Normal lower limit is 2.5 cm. (unknown) (no (unknown) (unknown) OUTSIDE/PRIOR (units ( unknown) date) DATING DATA: unknown) (unknown) (no (unknown) (unknown) Ordering (units (unkno wn) date) Provider: unknown) Chaka Flores MD (unknown) (no (unknown) (unknown) PROCEDURE: US (units ( unknown) date) OB TRANSVAGINAL unknown) (unknown) (no (unknown) (unknown) Patient: (units (unkno wn) date) Blane,Piper N unknown) MR#: [id number] (unknown) (no (unknown) (unknown) Placenta: (units (unkn own) date) Placental unknown) position is posterior, without previa. (unknown) (no (unknown) (unknown) Presentation: (units ( unknown) date) Vertex unknown) (unknown) (no (unknown) (unknown) Procedure: US (units ( unknown) date) OB transvaginal unknown) (unknown) (no (unknown) (unknown) Real-time (units (unkn own) date) scanning was unknown) performed of the fetus, with image documentation. (unknown) (no (unknown) (unknown) Signed (units (unkno wn) date) unknown) (unknown) (no (unknown) (unknown) Single deepest (units (unknown) date) vertical pocket unknown) is 4.1 cm. (unknown) (no (unknown) (unknown) TECHNIQUE: (units (unk nown) date) unknown) (unknown) (no (unknown) (unknown) The (units (unkno wn) date) calculations are unknown) made using the clinical TIFFANIE of 12/24/2022 (unknown) (no (unknown) (unknown) Ultrasound (units (unk nown) date) Report unknown) Result panel 1809 (unknown) (no date) (unknown) (unknown) <=1.005 (units (unkn own) unknown) (unknown) (no date) (unknown) (unknown) 0.2 e.u./dl (unkn own) (unknown) (no date) (unknown) (unknown) 5.5 (units (unkn own) unknown) (unknown) (no date) (unknown) (unknown) CLEAR (units (unkn own) unknown) (unknown) (no date) (unknown) (unknown) NEGATIVE (units (unkn own) unknown) (unknown) (no date) (unknown) (unknown) NEGATIVE g/dl (unkn own) (unknown) (no date) (unknown) (unknown) TRACE (units (unkn own) unknown) (unknown) (no date) (unknown) (unknown) YELLOW (units (unkn own) unknown) (unknown) (no date) (unknown) (unknown) YELLOW (units (unkn own) unknown) Result panel 1811 (unknown) (no date) (unknown) (unknown) <=1.005 (units (unkn own) unknown) (unknown) (no date) (unknown) (unknown) 0.2 e.u./dl (unkn own) (unknown) (no date) (unknown) (unknown) 1-5/HPF (units (unkn own) unknown) (unknown) (no date) (unknown) (unknown) 5.5 (units (unkn own) unknown) (unknown) (no date) (unknown) (unknown) CLEAR (units (unkn own) unknown) (unknown) (no date) (unknown) (unknown) NEGATIVE (units (unkn own) unknown) (unknown) (no date) (unknown) (unknown) NEGATIVE g/dl (unkn own) (unknown) (no date) (unknown) (unknown) None Seen (units (unk nown) unknown) (unknown) (no date) (unknown) (unknown) None Seen (units (unk nown) unknown) (unknown) (no date) (unknown) (unknown) Specimen (units (unkn own) Cultured unknown) (unknown) (no date) (unknown) (unknown) TRACE (units (unkn own) unknown) (unknown) (no date) (unknown) (unknown) YELLOW (units (unkn own) unknown) (unknown) (no date) (unknown) (unknown) YELLOW (units (unkn own) unknown) Result panel 1812 (unknown) (no date) (unknown) (unknown) Negative (units (unkn own) unknown) Result panel 1813 (unknown) (no date) (unknown) (unknown) <135 index (unkn own) (unknown) (no date) (unknown) (unknown) <135 index (unkn own) (unknown) (no date) (unknown) (unknown) 0 /ul (unkn own) (unknown) (no date) (unknown) (unknown) 0.5 % (unkn own) (unknown) (no date) (unknown) (unknown) 0.8 % (unkn own) (unknown) (no date) (unknown) (unknown) 100 /ul (unkn own) (unknown) (no date) (unknown) (unknown) 1100 /ul (unkn own) (unknown) (no date) (unknown) (unknown) 14.2 % (unkn own) (unknown) (no date) (unknown) (unknown) 15.6 % (unkn own) (unknown) (no date) (unknown) (unknown) 16.1 iu/ml (unkn own) (unknown) (no date) (unknown) (unknown) 16.1 iu/ml (unkn own) (unknown) (no date) (unknown) (unknown) 26.2 pg (unkn own) (unknown) (no date) (unknown) (unknown) 262 x10 3/ul (unkn own) (unknown) (no date) (unknown) (unknown) 29.3 % (unkn own) (unknown) (no date) (unknown) (unknown) 3.72 x10 6/ul (unkn own) (unknown) (no date) (unknown) (unknown) 33.3 % (unkn own) (unknown) (no date) (unknown) (unknown) 5200 /ul (unkn own) (unknown) (no date) (unknown) (unknown) 600 /ul (unkn own) (unknown) (no date) (unknown) (unknown) 7.0 x10 3/ul (unkn own) (unknown) (no date) (unknown) (unknown) 74.2 % (unkn own) (unknown) (no date) (unknown) (unknown) 78.7 fl (unkn own) (unknown) (no date) (unknown) (unknown) 8.9 % (unkn own) (unknown) (no date) (unknown) (unknown) 88 mg/dl (unkn own) (unknown) (no date) (unknown) (unknown) 88 mg/dl (unkn own) (unknown) (no date) (unknown) (unknown) 9.8 g/dl (unkn own) (unknown) (no date) (unknown) (unknown) NEGATIVE (units (unkn own) unknown) (unknown) (no date) (unknown) (unknown) NEGATIVE (units (unkn own) unknown) (unknown) (no date) (unknown) (unknown) NEGATIVE s/c (unkn own) (unknown) (no date) (unknown) (unknown) NEGATIVE s/c (unkn own) (unknown) (no date) (unknown) (unknown) Non Reactive (units ( unknown) unknown) (unknown) (no date) (unknown) (unknown) Non Reactive (units ( unknown) unknown) (unknown) (no date) (unknown) (unknown) O Positive (units (un known) unknown) Result panel 1814 (unknown) (no (unknown) (unknown) (no value) (units (unk nown) date) unknown) (unknown) (no (unknown) (unknown) 09/29/22 (units (unkno wn) date) 09/29/22 unknown) (unknown) (no (unknown) (unknown) [id number] (units (unkno wn) date) unknown) (unknown) (no (unknown) (unknown) 12:51 13:35 (units (un known) date) unknown) (unknown) (no (unknown) (unknown) ADHD (units (unkno wn) date) unknown) (unknown) (no (unknown) (unknown) Acne (units (unkno wn) date) unknown) (unknown) (no (unknown) (unknown) Age/Sex: 22 / F (units (unknown) date) unknown) (unknown) (no (unknown) (unknown) Anemia (-2020) (units (unknown) date) unknown) (unknown) (no (unknown) (unknown) Anesthesia (units (unk nown) date) unknown) (unknown) (no (unknown) (unknown) Anxiety (units (unkno wn) date) unknown) (unknown) (no (unknown) (unknown) Autism (units (unkno wn) date) unknown) (unknown) (no (unknown) (unknown) Bipolar disorder (units (unknown) date) unknown) (unknown) (no (unknown) (unknown) Brother Anxiety (units (unknown) date) unknown) (unknown) (no (unknown) (unknown) Cancer (units (unkno wn) date) unknown) (unknown) (no (unknown) (unknown) Comments/Additio (units (unknown) date) nal reasons for unknown) admission: (unknown) (no (unknown) (unknown) : 2000 (units (unknown) date) Acct:[id number] unknown) (unknown) (no (unknown) (unknown) Date of Service: (units (unknown) date) 09/29/22 unknown) (unknown) (no (unknown) (unknown) Date of (units (unkno wn) date) evaluation: unknown) 09/29/22 (unknown) (no (unknown) (unknown) Depression (units (unk nown) date) unknown) (unknown) (no (unknown) (unknown) Piper presents (units (unknown) date) today with unknown) cramping since earlier today and may have passed (unknown) (no (unknown) (unknown) Diabetes (units (unkno wn) date) mellitus unknown) (unknown) (no (unknown) (unknown) Family History (units (unknown) date) (Reviewed unknown) 09/28/22 @ 07:44 by Cheryle Reza DO) (unknown) (no (unknown) (unknown) Father Diabetes (units (unknown) date) mellitus unknown) (unknown) (no (unknown) (unknown) (units (unkno wn) date) Fibronectin unknown) Negative (unknown) (no (unknown) (unknown) Grandfather (units (un known) date) Diabetes mellitus unknown) (unknown) (no (unknown) (unknown) Grandfather (units (un known) date) Family unknown) estrangement (unknown) (no (unknown) (unknown) Grandmother (units (un known) date) Cancer unknown) (unknown) (no (unknown) (unknown) Grandmother (units (un known) date) Diabetes unknown) mellitus (unknown) (no (unknown) (unknown) H/O hand surgery (units (unknown) date) unknown) 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 (unknown) (no (unknown) (unknown) History of (units (unk nown) date) removal of skin unknown) mole (unknown) (no (unknown) (unknown) Hyperlipidemia (units (unknown) date) unknown) (unknown) (no (unknown) (unknown) Hypertension (units (u nknown) date) unknown) (unknown) (no (unknown) (unknown) [facility] (units (unknown) date) [address] unknown) [place] [address] (unknown) (no (unknown) (unknown) Labor and (units (unkn own) date) Delivery Triage unknown) Note (unknown) (no (unknown) (unknown) Laboratory (units (unk nown) date) Results - last 24 unknown) hr (unknown) (no (unknown) (unknown) Labs (units (unkno wn) date) unknown) (unknown) (no (unknown) (unknown) Labs: (units (unkno wn) date) unknown) (unknown) (no (unknown) (unknown) Lung cancer (units (un known) date) unknown) (unknown) (no (unknown) (unknown) Medical History (units (unknown) date) (Reviewed unknown) 09/28/22 @ 07:44 by Cheryle Reza DO) (unknown) (no (unknown) (unknown) Mental health (units ( unknown) date) problem unknown) (unknown) (no (unknown) (unknown) Mother (units (unkno wn) date) Gestational unknown) diabetes (unknown) (no (unknown) (unknown) Objective (units (unkn own) date) unknown) (unknown) (no (unknown) (unknown) Ovarian cyst (units (u nknown) date) () unknown) (unknown) (no (unknown) (unknown) PFSH (units (unkno wn) date) unknown) (unknown) (no (unknown) (unknown) PID (acute (units (unk nown) date) pelvic unknown) inflammatory disease) (unknown) (no (unknown) (unknown) PTSD (units (unkno wn) date) (post-traumatic unknown) stress disorder) () (unknown) (no (unknown) (unknown) Patient: (units (unkno wn) date) Sites,Piper N unknown) MR#: [id number] (unknown) (no (unknown) (unknown) Primary OB (units (unk nown) date) Provider: Chaka horton) Natalya Flores (unknown) (no (unknown) (unknown) Prostate cancer (units (unknown) date) unknown) (unknown) (no (unknown) (unknown) Provider: (units (unkn own) date) Chaka Flores unknown) (unknown) (no (unknown) (unknown) Reason for (units (unk nown) date) Evaluation: Yes unknown) pre-term labor 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 (unknown) (no (unknown) (unknown) Schizophrenia (units ( unknown) date) unknown) (unknown) (no (unknown) (unknown) Seizures (-2002) (units (unknown) date) unknown) (unknown) (no (unknown) (unknown) Signed By: (units (unk nown) date) unknown) (unknown) (no (unknown) (unknown) Sister Anxiety (units (unknown) date) unknown) (unknown) (no (unknown) (unknown) Sister (units (unkno wn) date) Depression unknown) (unknown) (no (unknown) (unknown) Smoking Status: (units (unknown) date) Former smoker unknown) (former vape use, quit) (unknown) (no (unknown) (unknown) Social History (units (unknown) date) (Reviewed unknown) 09/28/22 @ 07:44 by Cheryle Reza DO) (unknown) (no (unknown) (unknown) Surgical History (units (unknown) date) (Reviewed unknown) 09/28/22 @ 07:44 by Cheryle Reza DO) (unknown) (no (unknown) (unknown) Type(s) of (units (unk nown) date) exercise: walking unknown) (unknown) (no (unknown) (unknown) Ur Culture (units (unk nown) date) Indicated? unknown) Specimen cultured (unknown) (no (unknown) (unknown) Ur Leukocyte (units (u nknown) date) Esterase Trace H unknown) (unknown) (no (unknown) (unknown) Ur Specific (units (un known) date) [place] <=1.005 unknown) (unknown) (no (unknown) (unknown) Urine Appearance (units (unknown) date) Clear unknown) (unknown) (no (unknown) (unknown) Urine Bacteria (units (unknown) date) None seen unknown) (unknown) (no (unknown) (unknown) Urine Bilirubin (units (unknown) date) Negative unknown) (unknown) (no (unknown) (unknown) Urine Color (units (un known) date) Yellow unknown) (unknown) (no (unknown) (unknown) Urine Glucose (units ( unknown) date) (UA) Negative unknown) (unknown) (no (unknown) (unknown) Urine Ketones (units ( unknown) date) Trace H unknown) (unknown) (no (unknown) (unknown) Urine Nitrate (units ( unknown) date) Negative unknown) (unknown) (no (unknown) (unknown) Urine Occult (units (u nknown) date) Blood Negative unknown) (unknown) (no (unknown) (unknown) Urine Protein (units ( unknown) date) Negative unknown) (unknown) (no (unknown) (unknown) Urine RBC None (units (unknown) date) seen unknown) (unknown) (no (unknown) (unknown) Urine (units (unkno wn) date) Urobilinogen 0.2 unknown) (unknown) (no (unknown) (unknown) Urine WBC (units (unkn own) date) 1-5/hpf unknown) (unknown) (no (unknown) (unknown) Urine pH 5.5 (units (u nknown) date) unknown) (unknown) (no (unknown) (unknown) Visit (units (unkno wn) date) Information unknown) (unknown) (no (unknown) (unknown) alcohol intake: (units (unknown) date) never unknown) (unknown) (no (unknown) (unknown) caffeine: Yes (units ( unknown) date) (occasionally, unknown) aware of 200mg limit) (unknown) (no (unknown) (unknown) carbon monox (units (u nknown) date) detector in home: unknown) Yes (unknown) (no (unknown) (unknown) current (units (unkno [...] (unknown) date) year weight has: unknown) other ([id number] lb) (unknown) (no (unknown) (unknown) education level: (units (unknown) date) high school unknown) (unknown) (no (unknown) (unknown) fire (units (unkno wn) date) 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 unknown) home: Yes (unknown) (no (unknown) (unknown) firearms in (units (un known) date) home: Yes unknown) firearms unloaded and locked: Yes (unknown) (no (unknown) (unknown) household (units (unkn own) date) members: spouse unknown) (unknown) (no (unknown) (unknown) housing: (units (unkno wn) date) apartment unknown) (unknown) (no (unknown) (unknown) lives (units (unkno wn) date) independently: unknown) Yes (unknown) (no (unknown) (unknown) marital status: (units (unknown) date) unknown) (unknown) (no (unknown) (unknown) number of (units (unkn own) date) children: 0 unknown) (unknown) (no (unknown) (unknown) occupational (units (u nknown) date) status: unknown) unemployed (unknown) (no (unknown) (unknown) pets and (units (unkno wn) date) animals: Yes (1 unknown) dog 1 cat; aware of toxo) (unknown) (no (unknown) (unknown) seatbelt use: (units ( unknown) date) always unknown) (unknown) (no (unknown) (unknown) second hand (units (un known) date) exposure: Yes unknown) (while visiting family (mom smokes)) (unknown) (no (unknown) (unknown) some blood (units (unk nown) date) tinged mucus. unknown) (unknown) (no (unknown) (unknown) special mirella (units ( unknown) date) needs: No unknown) (unknown) (no (unknown) (unknown) substance use (units ( unknown) date) type: marijuana unknown) (quit when she learned she was ) (unknown) (no (unknown) (unknown) travel history: (units [...] detector in home: unknown) Yes Result panel 1815 (unknown) (no date) (unknown) (unknown) No growth. (units (un known) unknown) Result panel 1816 (unknown) (no date) (unknown) (unknown) (no value) (units (un known) unknown) (unknown) (no date) (unknown) (unknown) Mixed gram + (units ( unknown) osiel. Deemed unknown) unsuitable for further studies. Result panel 1817 (unknown) (no date) (unknown) (unknown) <=1.005 (units (unkn own) unknown) (unknown) (no date) (unknown) (unknown) 0.2 e.u./dl (unkn own) (unknown) (no date) (unknown) (unknown) 1 (units (unkn own) unknown) (unknown) (no date) (unknown) (unknown) 6.0 (units (unkn own) unknown) (unknown) (no date) (unknown) (unknown) CLEAR (units (unkn own) unknown) (unknown) (no date) (unknown) (unknown) NEGATIVE (units (unkn own) unknown) (unknown) (no date) (unknown) (unknown) NEGATIVE g/dl (unkn own) (unknown) (no date) (unknown) (unknown) YELLOW (units (unkn own) unknown) (unknown) (no date) (unknown) (unknown) YELLOW (units (unkn own) unknown) Result panel 1818 (unknown) (no date) (unknown) (unknown) <=1.005 (units (unkn own) unknown) (unknown) (no date) (unknown) (unknown) 0-1/HPF (units (unkn own) unknown) (unknown) (no date) (unknown) (unknown) 0.2 e.u./dl (unkn own) (unknown) (no date) (unknown) (unknown) 1 (units (unkn own) unknown) (unknown) (no date) (unknown) (unknown) 1-5 /HPF (units (unkn own) unknown) (unknown) (no date) (unknown) (unknown) 1-5/HPF (units (unkn own) unknown) (unknown) (no date) (unknown) (unknown) 10-30/HPF (units (unk nown) unknown) (unknown) (no date) (unknown) (unknown) 6.0 (units (unkn own) unknown) (unknown) (no date) (unknown) (unknown) CLEAR (units (unkn own) unknown) (unknown) (no date) (unknown) (unknown) Few (2-10) (units (un known) unknown) (unknown) (no date) (unknown) (unknown) NEGATIVE (units (unkn own) unknown) (unknown) (no date) (unknown) (unknown) NEGATIVE g/dl (unkn own) (unknown) (no date) (unknown) (unknown) Specimen (units (unkn own) Cultured unknown) (unknown) (no date) (unknown) (unknown) YELLOW (units (unkn own) unknown) (unknown) (no date) (unknown) (unknown) YELLOW (units (unkn own) unknown) Result panel 1819 (unknown) (no (unknown) (unknown) (no value) (units (unk nown) date) unknown) (unknown) (no (unknown) (unknown) 10/03/22 (units (unkno wn) date) unknown) (unknown) (no (unknown) (unknown) [id number] (units (unkno wn) date) unknown) (unknown) (no (unknown) (unknown) 18:50 (units (unkno wn) date) unknown) (unknown) (no (unknown) (unknown) ADHD (units (unkno wn) date) unknown) (unknown) (no (unknown) (unknown) Acne (units (unkno wn) date) unknown) (unknown) (no (unknown) (unknown) Age/Sex: 22 / F (units (unknown) date) unknown) (unknown) (no (unknown) (unknown) Anemia (-2020) (units (unknown) date) unknown) (unknown) (no (unknown) (unknown) Anesthesia (units (unk nown) date) unknown) (unknown) (no (unknown) (unknown) Anxiety (units (unkno wn) date) unknown) (unknown) (no (unknown) (unknown) Autism (units (unkno wn) date) unknown) (unknown) (no (unknown) (unknown) Bipolar disorder (units (unknown) date) unknown) (unknown) (no (unknown) (unknown) Brother Anxiety (units (unknown) date) unknown) (unknown) (no (unknown) (unknown) Cancer (units (unkno wn) date) unknown) (unknown) (no (unknown) (unknown) : 2000 (units (unknown) date) Acct:[id number] unknown) (unknown) (no (unknown) (unknown) Date of Service: (units (unknown) date) 10/03/22 unknown) (unknown) (no (unknown) (unknown) Date of (units (unkno wn) date) evaluation: unknown) 10/03/22 (unknown) (no (unknown) (unknown) Depression (units (unk nown) date) unknown) (unknown) (no (unknown) (unknown) Diabetes (units (unkno wn) date) mellitus unknown) (unknown) (no (unknown) (unknown) Family History (units (unknown) date) (Reviewed unknown) 09/28/22 @ 07:44 by Cheryle Reza DO) (unknown) (no (unknown) (unknown) Father Diabetes (units (unknown) date) mellitus unknown) (unknown) (no (unknown) (unknown) Grandfather (units (un known) date) Diabetes mellitus unknown) (unknown) (no (unknown) (unknown) Grandfather (units (un known) date) Family unknown) estrangement (unknown) (no (unknown) (unknown) Grandmother (units (un known) date) Cancer unknown) (unknown) (no (unknown) (unknown) Grandmother (units (un known) date) Diabetes unknown) mellitus (unknown) (no (unknown) (unknown) H/O hand surgery (units (unknown) date) unknown) 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 (unknown) (no (unknown) (unknown) History of (units (unk nown) date) removal of skin unknown) mole (unknown) (no (unknown) (unknown) Hyperlipidemia (units (unknown) date) unknown) (unknown) (no (unknown) (unknown) Hypertension (units (u nknown) date) unknown) (unknown) (no (unknown) (unknown) [facility] (units (unknown) date) [address] unknown) [place] [address] (unknown) (no (unknown) (unknown) Labor and (units (unkn own) date) Delivery Triage unknown) Note (unknown) (no (unknown) (unknown) Laboratory (units (unk nown) date) Results - last 24 unknown) hr (unknown) (no (unknown) (unknown) Labs (units (unkno wn) date) unknown) (unknown) (no (unknown) (unknown) Labs: (units (unkno wn) date) unknown) (unknown) (no (unknown) (unknown) Lung cancer (units (un known) date) unknown) (unknown) (no (unknown) (unknown) Medical History (units (unknown) date) (Reviewed unknown) 09/28/22 @ 07:44 by Cheryle Reza DO) (unknown) (no (unknown) (unknown) Mental health (units ( unknown) date) problem unknown) (unknown) (no (unknown) (unknown) Mother (units (unkno wn) date) Gestational unknown) diabetes (unknown) (no (unknown) (unknown) Objective (units (unkn own) date) unknown) (unknown) (no (unknown) (unknown) Ovarian cyst (units (u nknown) date) (-2020) unknown) (unknown) (no (unknown) (unknown) PFSH (units (unkno wn) date) unknown) (unknown) (no (unknown) (unknown) PID (acute (units (unk nown) date) pelvic unknown) inflammatory disease) (unknown) (no (unknown) (unknown) PTSD (units (unkno wn) date) (post-traumatic unknown) stress disorder) () (unknown) (no (unknown) (unknown) Patient: (units (unkno wn) date) Sites,[facility] unknown) MR#: [id number] (unknown) (no (unknown) (unknown) Prostate cancer (units (unknown) date) unknown) (unknown) (no (unknown) (unknown) Provider: (units (unkn own) date) Cheryle Reza unknown) D.O. 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 (unknown) (no (unknown) (unknown) Schizophrenia (units ( unknown) date) unknown) (unknown) (no (unknown) (unknown) Seizures () (units (unknown) date) unknown) (unknown) (no (unknown) (unknown) Signed By: (units (unk nown) date) unknown) (unknown) (no (unknown) (unknown) Sister Anxiety (units (unknown) date) unknown) (unknown) (no (unknown) (unknown) Sister (units (unkno wn) date) Depression unknown) (unknown) (no (unknown) (unknown) Smoking Status: (units (unknown) date) Former smoker unknown) (former vape use, quit) (unknown) (no (unknown) (unknown) Social History (units (unknown) date) (Reviewed unknown) 09/28/22 @ 07:44 by Cheryle Reza DO) (unknown) (no (unknown) (unknown) Surgical History (units (unknown) date) (Reviewed unknown) 09/28/22 @ 07:44 by Cheryle Reza DO) (unknown) (no (unknown) (unknown) Type(s) of (units (unk nown) date) exercise: walking unknown) (unknown) (no (unknown) (unknown) Ur Culture (units (unk nown) date) Indicated? unknown) Specimen cultured (unknown) (no (unknown) (unknown) Ur Leukocyte (units (u nknown) date) Esterase 1+ H unknown) (unknown) (no (unknown) (unknown) Ur Specific (units (un known) date) [place] <=1.005 unknown) (unknown) (no (unknown) (unknown) Ur Squamous (units (un known) date) Epith Cells 1-5 unknown) /hpf (unknown) (no (unknown) (unknown) Ur Transition (units ( unknown) date) Epith Cell unknown) 1-5/hpf (unknown) (no (unknown) (unknown) Urine Appearance (units (unknown) date) Clear unknown) (unknown) (no (unknown) (unknown) Urine Bacteria (units (unknown) date) Few (2-10) H unknown) (unknown) (no (unknown) (unknown) Urine Bilirubin (units (unknown) date) Negative unknown) (unknown) (no (unknown) (unknown) Urine Color (units (un known) date) Yellow unknown) (unknown) (no (unknown) (unknown) Urine Glucose (units ( unknown) date) (UA) Negative unknown) (unknown) (no (unknown) (unknown) Urine Ketones (units ( unknown) date) Negative unknown) (unknown) (no (unknown) (unknown) Urine Nitrate (units ( unknown) date) Negative unknown) (unknown) (no (unknown) (unknown) Urine Occult (units (u nknown) date) Blood Negative unknown) (unknown) (no (unknown) (unknown) Urine Protein (units ( unknown) date) Negative unknown) (unknown) (no (unknown) (unknown) Urine RBC (units (unkn own) date) 0-1/hpf unknown) (unknown) (no (unknown) (unknown) Urine (units (unkno wn) date) Urobilinogen 0.2 unknown) (unknown) (no (unknown) (unknown) Urine WBC (units (unkn own) date) 10-30/hpf H unknown) (unknown) (no (unknown) (unknown) Urine pH 6.0 (units (u nknown) date) unknown) (unknown) (no (unknown) (unknown) Visit (units (unkno wn) date) Information unknown) (unknown) (no (unknown) (unknown) alcohol intake: (units (unknown) date) never unknown) (unknown) (no (unknown) (unknown) caffeine: Yes (units ( unknown) date) (occasionally, unknown) aware of 200mg limit) (unknown) (no (unknown) (unknown) carbon monox (units (u nknown) date) detector in home: unknown) Yes (unknown) (no (unknown) (unknown) current (units (unkno [...] (unknown) date) year weight has: unknown) other ([id number] lb) (unknown) (no (unknown) (unknown) education level: (units (unknown) date) high school unknown) (unknown) (no (unknown) (unknown) fire (units (unkno wn) date) 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 unknown) home: Yes (unknown) (no (unknown) (unknown) firearms in (units (un known) date) home: Yes unknown) firearms unloaded and locked: Yes (unknown) (no (unknown) (unknown) household (units (unkn own) date) members: spouse unknown) (unknown) (no (unknown) (unknown) housing: (units (unkno wn) date) apartment unknown) (unknown) (no (unknown) (unknown) lives (units (unkno wn) date) independently: unknown) Yes (unknown) (no (unknown) (unknown) marital status: (units (unknown) date) unknown) (unknown) (no (unknown) (unknown) number of (units (unkn own) date) children: 0 unknown) (unknown) (no (unknown) (unknown) occupational (units (u nknown) date) status: unknown) unemployed (unknown) (no (unknown) (unknown) pets and (units (unkno wn) date) animals: Yes (1 unknown) dog 1 cat; aware of toxo) (unknown) (no (unknown) (unknown) seatbelt use: (units ( unknown) date) always unknown) (unknown) (no (unknown) (unknown) second hand (units (un known) date) exposure: Yes unknown) (while visiting family (mom smokes)) (unknown) (no (unknown) (unknown) special mirella (units ( unknown) date) needs: No unknown) (unknown) (no (unknown) (unknown) substance use (units ( unknown) date) type: marijuana unknown) (quit when she learned she was ) (unknown) (no (unknown) (unknown) travel history: (units [...] detector in home: unknown) Yes Result panel [id number] (unknown) (no (unknown) (unknown) (no value) (units (unk nown) date) unknown) (unknown) (no (unknown) (unknown) 10/03/22 (units (unkno wn) date) unknown) (unknown) (no (unknown) (unknown) [id number] (units (unkno wn) date) unknown) (unknown) (no (unknown) (unknown) 18:50 (units (unkno wn) date) unknown) (unknown) (no (unknown) (unknown) ADHD (units (unkno wn) date) unknown) (unknown) (no (unknown) (unknown) Acne (units (unkno wn) date) unknown) (unknown) (no (unknown) (unknown) Age/Sex: 22 / F (units (unknown) date) unknown) (unknown) (no (unknown) (unknown) Anemia (-2020) (units (unknown) date) unknown) (unknown) (no (unknown) (unknown) Anesthesia (units (unk nown) date) unknown) (unknown) (no (unknown) (unknown) Anxiety (units (unkno wn) date) unknown) (unknown) (no (unknown) (unknown) Autism (units (unkno wn) date) unknown) (unknown) (no (unknown) (unknown) Baseline (units (unknown) date) heart rate: 130 unknown) (unknown) (no (unknown) (unknown) Bipolar disorder (units (unknown) date) unknown) (unknown) (no (unknown) (unknown) Brother Anxiety (units (unknown) date) unknown) (unknown) (no (unknown) (unknown) Cancer (units (unkno wn) date) unknown) (unknown) (no (unknown) (unknown) Category of (units (un known) date) Tracing: Reactive unknown) (unknown) (no (unknown) (unknown) : 2000 (units (unknown) date) Acct:[id number] unknown) (unknown) (no (unknown) (unknown) Date of Service: (units (unknown) date) 10/03/22 unknown) (unknown) (no (unknown) (unknown) Date of (units (unkno wn) date) evaluation: unknown) 10/03/22 (unknown) (no (unknown) (unknown) Depression (units (unk nown) date) unknown) (unknown) (no (unknown) (unknown) Diabetes (units (unkno wn) date) mellitus unknown) (unknown) (no (unknown) (unknown) Evaluation (units (unk nown) date) unknown) (unknown) (no (unknown) (unknown) Family History (units (unknown) date) (Reviewed unknown) 09/28/22 @ 07:44 by Cheryle Reza DO) (unknown) (no (unknown) (unknown) Father Diabetes (units (unknown) date) mellitus unknown) (unknown) (no (unknown) (unknown) Monitor (units ( unknown) date) Decelerations: unknown) Absent (unknown) (no (unknown) (unknown) monitor (units ( unknown) date) accelerations: unknown) Present (unknown) (no (unknown) (unknown) Grandfather (units (un known) date) Diabetes mellitus unknown) (unknown) (no (unknown) (unknown) Grandfather (units (un known) date) Family unknown) estrangement (unknown) (no (unknown) (unknown) Grandmother (units (un known) date) Cancer unknown) (unknown) (no (unknown) (unknown) Grandmother (units (un known) date) Diabetes unknown) mellitus (unknown) (no (unknown) (unknown) H/O hand surgery (units (unknown) date) unknown) 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 (unknown) (no (unknown) (unknown) History of (units (unk nown) date) removal of skin unknown) mole (unknown) (no (unknown) (unknown) Hyperlipidemia (units (unknown) date) unknown) (unknown) (no (unknown) (unknown) Hypertension (units (u nknown) date) unknown) (unknown) (no (unknown) (unknown) [facility] (units (unknown) date) [address] unknown) [place] [address] (unknown) (no (unknown) (unknown) Labor and (units (unkn own) date) Delivery Triage unknown) Note (unknown) (no (unknown) (unknown) Laboratory (units (unk nown) date) Results - last 24 unknown) hr (unknown) (no (unknown) (unknown) Labs (units (unkno wn) date) unknown) (unknown) (no (unknown) (unknown) Labs: (units (unkno wn) date) unknown) (unknown) (no (unknown) (unknown) Lung cancer (units (un known) date) unknown) (unknown) (no (unknown) (unknown) Medical History (units (unknown) date) (Reviewed unknown) 09/28/22 @ 07:44 by Cheryle Reza DO) (unknown) (no (unknown) (unknown) Mental health (units ( unknown) date) problem unknown) (unknown) (no (unknown) (unknown) Mother (units (unkno wn) date) Gestational unknown) diabetes (unknown) (no (unknown) (unknown) Non-invasive (units (u nknown) date) Membranes unknown) Rupture Test: negative (unknown) (no (unknown) (unknown) Objective (units (unkn own) date) unknown) (unknown) (no (unknown) (unknown) On-call OB (units (unk nown) date) Provider: unknown) Cheryle Reza (unknown) (no (unknown) (unknown) Ovarian cyst (units (u nknown) date) (-2021) unknown) (unknown) (no (unknown) (unknown) PFSH (units (unkno wn) date) unknown) (unknown) (no (unknown) (unknown) PID (acute (units (unk nown) date) pelvic unknown) inflammatory disease) (unknown) (no (unknown) (unknown) PTSD (units (unkno wn) date) (post-traumatic unknown) stress disorder) () (unknown) (no (unknown) (unknown) Patient: (units (unkno wn) date) Sites,[facility] N unknown) MR#: [id number] (unknown) (no (unknown) (unknown) Primary OB (units (unk nown) date) Provider: Chaka unknown) Natalya Flores (unknown) (no (unknown) (unknown) Prostate cancer (units (unknown) date) unknown) (unknown) (no (unknown) (unknown) Provider: (units (unkn own) date) Cheryle Reza unknown) D.O. 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 (unknown) (no (unknown) (unknown) Schizophrenia (units ( unknown) date) unknown) (unknown) (no (unknown) (unknown) Seizures (-2002) (units (unknown) date) unknown) (unknown) (no (unknown) (unknown) Signed By: (units (unk nown) date) unknown) (unknown) (no (unknown) (unknown) Sister Anxiety (units (unknown) date) unknown) (unknown) (no (unknown) (unknown) Sister (units (unkno wn) date) Depression unknown) (unknown) (no (unknown) (unknown) Smoking Status: (units (unknown) date) Former smoker unknown) (former vape use, quit) (unknown) (no (unknown) (unknown) Social History (units (unknown) date) (Reviewed unknown) 09/28/22 @ 07:44 by Cheryle Reza DO) (unknown) (no (unknown) (unknown) Surgical History (units (unknown) date) (Reviewed unknown) 09/28/22 @ 07:44 by Cheryle Reza DO) (unknown) (no (unknown) (unknown) Type(s) of (units (unk nown) date) exercise: walking unknown) (unknown) (no (unknown) (unknown) Ur Culture (units (unk nown) date) Indicated? unknown) Specimen cultured (unknown) (no (unknown) (unknown) Ur Leukocyte (units (u nknown) date) Esterase 1+ H unknown) (unknown) (no (unknown) (unknown) Ur Specific (units (un known) date) [place] <=1.005 unknown) (unknown) (no (unknown) (unknown) Ur Squamous (units (un known) date) Epith Cells 1-5 unknown) /hpf (unknown) (no (unknown) (unknown) Ur Transition (units ( unknown) date) Epith Cell unknown) 1-5/hpf (unknown) (no (unknown) (unknown) Urine Appearance (units (unknown) date) Clear unknown) (unknown) (no (unknown) (unknown) Urine Bacteria (units (unknown) date) Few (2-10) H unknown) (unknown) (no (unknown) (unknown) Urine Bilirubin (units (unknown) date) Negative unknown) (unknown) (no (unknown) (unknown) Urine Color (units (un known) date) Yellow unknown) (unknown) (no (unknown) (unknown) Urine Glucose (units ( unknown) date) (UA) Negative unknown) (unknown) (no (unknown) (unknown) Urine Ketones (units ( unknown) date) Negative unknown) (unknown) (no (unknown) (unknown) Urine Nitrate (units ( unknown) date) Negative unknown) (unknown) (no (unknown) (unknown) Urine Occult (units (u nknown) date) Blood Negative unknown) (unknown) (no (unknown) (unknown) Urine Protein (units ( unknown) date) Negative unknown) (unknown) (no (unknown) (unknown) Urine RBC (units (unkn own) date) 0-1/hpf unknown) (unknown) (no (unknown) (unknown) Urine (units (unkno wn) date) Urobilinogen 0.2 unknown) (unknown) (no (unknown) (unknown) Urine WBC (units (unkn own) date) 10-30/hpf H unknown) (unknown) (no (unknown) (unknown) Urine pH 6.0 (units (u nknown) date) unknown) (unknown) (no (unknown) (unknown) Variability: (units (u nknown) date) Moderate (11-25) unknown) (unknown) (no (unknown) (unknown) Visit (units (unkno wn) date) Information unknown) (unknown) (no (unknown) (unknown) alcohol intake: (units (unknown) date) never unknown) (unknown) (no (unknown) (unknown) caffeine: Yes (units ( unknown) date) (occasionally, unknown) aware of 200mg limit) (unknown) (no (unknown) (unknown) carbon monox (units (u nknown) date) detector in home: unknown) Yes (unknown) (no (unknown) (unknown) current (units (unkno [...] (unknown) date) year weight has: unknown) other ([id number] lb) (unknown) (no (unknown) (unknown) education level: (units (unknown) date) high school unknown) (unknown) (no (unknown) (unknown) fire (units (unkno wn) date) 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 unknown) home: Yes (unknown) (no (unknown) (unknown) firearms in (units (un known) date) home: Yes unknown) firearms unloaded and locked: Yes (unknown) (no (unknown) (unknown) household (units (unkn own) date) members: spouse unknown) (unknown) (no (unknown) (unknown) housing: (units (unkno wn) date) apartment unknown) (unknown) (no (unknown) (unknown) lives (units (unkno wn) date) independently: unknown) Yes (unknown) (no (unknown) (unknown) marital status: (units (unknown) date) unknown) (unknown) (no (unknown) (unknown) number of (units (unkn own) date) children: 0 unknown) (unknown) (no (unknown) (unknown) occupational (units (u nknown) date) status: unknown) unemployed (unknown) (no (unknown) (unknown) pets and (units (unkno wn) date) animals: Yes (1 unknown) dog 1 cat; aware of toxo) (unknown) (no (unknown) (unknown) seatbelt use: (units ( unknown) date) always unknown) (unknown) (no (unknown) (unknown) second hand (units (un known) date) exposure: Yes unknown) (while visiting family (mom smokes)) (unknown) (no (unknown) (unknown) special mirella (units ( unknown) date) needs: No unknown) (unknown) (no (unknown) (unknown) substance use (units ( unknown) date) type: marijuana unknown) (quit when she learned she was ) (unknown) (no (unknown) (unknown) travel history: (units [...] detector in home: unknown) Yes Result panel [id number] (unknown) (no (unknown) (unknown) (no value) (units (unk nown) date) unknown) (unknown) (no (unknown) (unknown) 10/03/22 (units (unkno wn) date) unknown) (unknown) (no (unknown) (unknown) [id number] (units (unkno wn) date) unknown) (unknown) (no (unknown) (unknown) 18:50 (units (unkno wn) date) unknown) (unknown) (no (unknown) (unknown) ADHD (units (unkno wn) date) unknown) (unknown) (no (unknown) (unknown) Acne (units (unkno wn) date) unknown) (unknown) (no (unknown) (unknown) Age/Sex: 22 / F (units (unknown) date) unknown) (unknown) (no (unknown) (unknown) Anemia (-2020) (units (unknown) date) unknown) (unknown) (no (unknown) (unknown) Anesthesia (units (unk nown) date) unknown) (unknown) (no (unknown) (unknown) Anxiety (units (unkno wn) date) unknown) (unknown) (no (unknown) (unknown) Autism (units (unkno wn) date) unknown) (unknown) (no (unknown) (unknown) Baseline (units (unknown) date) heart rate: 130 unknown) (unknown) (no (unknown) (unknown) Bipolar disorder (units (unknown) date) unknown) (unknown) (no (unknown) (unknown) Brother Anxiety (units (unknown) date) unknown) (unknown) (no (unknown) (unknown) Cancer (units (unkno wn) date) unknown) (unknown) (no (unknown) (unknown) Category of (units (un known) date) Tracing: Reactive unknown) (unknown) (no (unknown) (unknown) : 2000 (units (unknown) date) Acct:[id number] unknown) (unknown) (no (unknown) (unknown) Date of Service: (units (unknown) date) 10/03/22 unknown) (unknown) (no (unknown) (unknown) Date of (units (unkno wn) date) evaluation: unknown) 10/03/22 (unknown) (no (unknown) (unknown) Depression (units (unk nown) date) unknown) (unknown) (no (unknown) (unknown) Diabetes (units (unkno wn) date) mellitus unknown) (unknown) (no (unknown) (unknown) Evaluation (units (unk nown) date) unknown) (unknown) (no (unknown) (unknown) Family History (units (unknown) date) (Reviewed unknown) 09/28/22 @ 07:44 by Cheryle Reza DO) (unknown) (no (unknown) (unknown) Father Diabetes (units (unknown) date) mellitus unknown) (unknown) (no (unknown) (unknown) Monitor (units ( unknown) date) Decelerations: unknown) Absent (unknown) (no (unknown) (unknown) monitor (units ( unknown) date) accelerations: unknown) Present (unknown) (no (unknown) (unknown) Grandfather (units (un known) date) Diabetes mellitus unknown) (unknown) (no (unknown) (unknown) Grandfather (units (un known) date) Family unknown) estrangement (unknown) (no (unknown) (unknown) Grandmother (units (un known) date) Cancer unknown) (unknown) (no (unknown) (unknown) Grandmother (units (un known) date) Diabetes unknown) mellitus (unknown) (no (unknown) (unknown) H/O hand surgery (units (unknown) date) unknown) 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 (unknown) (no (unknown) (unknown) History of (units (unk nown) date) removal of skin unknown) mole (unknown) (no (unknown) (unknown) Hyperlipidemia (units (unknown) date) unknown) (unknown) (no (unknown) (unknown) Hypertension (units (u nknown) date) unknown) (unknown) (no (unknown) (unknown) [facility] (units (unknown) date) [address] unknown) [place] [address] (unknown) (no (unknown) (unknown) Labor and (units (unkn own) date) Delivery Triage unknown) Note (unknown) (no (unknown) (unknown) Laboratory (units (unk nown) date) Results - last 24 unknown) hr (unknown) (no (unknown) (unknown) Labs (units (unkno wn) date) unknown) (unknown) (no (unknown) (unknown) Labs: (units (unkno wn) date) unknown) (unknown) (no (unknown) (unknown) Lung cancer (units (un known) date) unknown) (unknown) (no (unknown) (unknown) Medical History (units (unknown) date) (Reviewed unknown) 09/28/22 @ 07:44 by Cheryle Reza DO) (unknown) (no (unknown) (unknown) Mental health (units ( unknown) date) problem unknown) (unknown) (no (unknown) (unknown) Mother (units (unkno wn) date) Gestational unknown) diabetes (unknown) (no (unknown) (unknown) Non-invasive (units (u nknown) date) Membranes unknown) Rupture Test: negative (unknown) (no (unknown) (unknown) Objective (units (unkn own) date) unknown) (unknown) (no (unknown) (unknown) On-call OB (units (unk nown) date) Provider: unknown) Cheryle Reza (unknown) (no (unknown) (unknown) Ovarian cyst (units (u nknown) date) () unknown) (unknown) (no (unknown) (unknown) PFSH (units (unkno wn) date) unknown) (unknown) (no (unknown) (unknown) PID (acute (units (unk nown) date) pelvic unknown) inflammatory disease) (unknown) (no (unknown) (unknown) PTSD (units (unkno wn) date) (post-traumatic unknown) stress disorder) () (unknown) (no (unknown) (unknown) Patient: (units (unkno wn) date) [facility] N unknown) MR#: [id number] (unknown) (no (unknown) (unknown) Primary OB (units (unk nown) date) Provider: Chaka Flores (unknown) (no (unknown) (unknown) Prostate cancer (units (unknown) date) unknown) (unknown) (no (unknown) (unknown) Provider: (units (unkn own) date) Cheryle Reza unknown) D.O. 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 (unknown) (no (unknown) (unknown) Schizophrenia (units ( unknown) date) unknown) (unknown) (no (unknown) (unknown) Seizures (-2003) (units (unknown) date) unknown) (unknown) (no (unknown) (unknown) Signed By: (units (unk nown) date) unknown) (unknown) (no (unknown) (unknown) Sister Anxiety (units (unknown) date) unknown) (unknown) (no (unknown) (unknown) Sister (units (unkno wn) date) Depression unknown) (unknown) (no (unknown) (unknown) Smoking Status: (units (unknown) date) Former smoker unknown) (former vape use, quit) (unknown) (no (unknown) (unknown) Social History (units (unknown) date) (Reviewed unknown) 09/28/22 @ 07:44 by Cheryle Reza DO) (unknown) (no (unknown) (unknown) Surgical History (units (unknown) date) (Reviewed unknown) 09/28/22 @ 07:44 by Cheryle Reza DO) (unknown) (no (unknown) (unknown) Type(s) of (units (unk nown) date) exercise: walking unknown) (unknown) (no (unknown) (unknown) Ur Culture (units (unk nown) date) Indicated? unknown) Specimen cultured (unknown) (no (unknown) (unknown) Ur Leukocyte (units (u nknown) date) Esterase 1+ H unknown) (unknown) (no (unknown) (unknown) Ur Specific (units (un known) date) [place] <=1.005 unknown) (unknown) (no (unknown) (unknown) Ur Squamous (units (un known) date) Epith Cells 1-5 unknown) /hpf (unknown) (no (unknown) (unknown) Ur Transition (units ( unknown) date) Epith Cell unknown) 1-5/hpf (unknown) (no (unknown) (unknown) Urine Appearance (units (unknown) date) Clear unknown) (unknown) (no (unknown) (unknown) Urine Bacteria (units (unknown) date) Few (2-10) H unknown) (unknown) (no (unknown) (unknown) Urine Bilirubin (units (unknown) date) Negative unknown) (unknown) (no (unknown) (unknown) Urine Color (units (un known) date) Yellow unknown) (unknown) (no (unknown) (unknown) Urine Glucose (units ( unknown) date) (UA) Negative unknown) (unknown) (no (unknown) (unknown) Urine Ketones (units ( unknown) date) Negative unknown) (unknown) (no (unknown) (unknown) Urine Nitrate (units ( unknown) date) Negative unknown) (unknown) (no (unknown) (unknown) Urine Occult (units (u nknown) date) Blood Negative unknown) (unknown) (no (unknown) (unknown) Urine Protein (units ( unknown) date) Negative unknown) (unknown) (no (unknown) (unknown) Urine RBC (units (unkn own) date) 0-1/hpf unknown) (unknown) (no (unknown) (unknown) Urine (units (unkno wn) date) Urobilinogen 0.2 unknown) (unknown) (no (unknown) (unknown) Urine WBC (units (unkn own) date) 10-30/hpf H unknown) (unknown) (no (unknown) (unknown) Urine pH 6.0 (units (u nknown) date) unknown) (unknown) (no (unknown) (unknown) Variability: (units (u nknown) date) Moderate (11-25) unknown) (unknown) (no (unknown) (unknown) Visit (units (unkno wn) date) Information unknown) (unknown) (no (unknown) (unknown) alcohol intake: (units (unknown) date) never unknown) (unknown) (no (unknown) (unknown) caffeine: Yes (units ( unknown) date) (occasionally, unknown) aware of 200mg limit) (unknown) (no (unknown) (unknown) carbon monox (units (u nknown) date) detector in home: unknown) Yes (unknown) (no (unknown) (unknown) current (units (unkno [...] (unknown) date) year weight has: unknown) other ([id number] lb) (unknown) (no (unknown) (unknown) education level: (units (unknown) date) high school unknown) (unknown) (no (unknown) (unknown) fire (units (unkno wn) date) 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 unknown) home: Yes (unknown) (no (unknown) (unknown) firearms in (units (un known) date) home: Yes unknown) firearms unloaded and locked: Yes (unknown) (no (unknown) (unknown) household (units (unkn own) date) members: spouse unknown) (unknown) (no (unknown) (unknown) housing: (units (unkno wn) date) apartment unknown) (unknown) (no (unknown) (unknown) lives (units (unkno wn) date) independently: unknown) Yes (unknown) (no (unknown) (unknown) marital status: (units (unknown) date) unknown) (unknown) (no (unknown) (unknown) number of (units (unkn own) date) children: 0 unknown) (unknown) (no (unknown) (unknown) occupational (units (u nknown) date) status: unknown) unemployed (unknown) (no (unknown) (unknown) pets and (units (unkno wn) date) animals: Yes (1 unknown) dog 1 cat; aware of toxo) (unknown) (no (unknown) (unknown) seatbelt use: (units ( unknown) date) always unknown) (unknown) (no (unknown) (unknown) second hand (units (un known) date) exposure: Yes unknown) (while visiting family (mom smokes)) (unknown) (no (unknown) (unknown) special mirella (units ( unknown) date) needs: No unknown) (unknown) (no (unknown) (unknown) substance use (units ( unknown) date) type: marijuana unknown) (quit when she learned she was ) (unknown) (no (unknown) (unknown) travel history: (units [...] detector in home: unknown) Yes Result panel 1822 (unknown) (no (unknown) (unknown) (no value) (units (unk nown) date) unknown) (unknown) (no (unknown) (unknown) (1) 28 weeks (units (u nknown) date) gestation of unknown) : (unknown) (no (unknown) (unknown) 10/03/22 (units (unkno wn) date) unknown) (unknown) (no (unknown) (unknown) 10/04/22 0722 (units ( unknown) date) unknown) (unknown) (no (unknown) (unknown) [id number] (units (unkno wn) date) unknown) (unknown) (no (unknown) (unknown) 18:50 (units (unkno wn) date) unknown) (unknown) (no (unknown) (unknown) 22-year-old (units (unknown) date) at 28 weeks and 2 unknown) days gestation concerned about possible (unknown) (no (unknown) (unknown) 22-year-old (units (unknown) date) at 28 weeks and 2 unknown) days gestation. AmniSure was negative and (unknown) (no (unknown) (unknown) 5 minutes. (units (unk nown) date) Contractions are unknown) not painful. Baby is active. She was seen in the (unknown) (no (unknown) (unknown) ADHD (units (unkno wn) date) unknown) (unknown) (no (unknown) (unknown) Acne (units (unkno wn) date) unknown) (unknown) (no (unknown) (unknown) Age/Sex: 22 / F (units (unknown) date) unknown) (unknown) (no (unknown) (unknown) Anemia (-2020) (units (unknown) date) unknown) (unknown) (no (unknown) (unknown) Anesthesia (units (unk nown) date) unknown) (unknown) (no (unknown) (unknown) Anxiety (units (unkno wn) date) unknown) (unknown) (no (unknown) (unknown) Autism (units (unkno wn) date) unknown) (unknown) (no (unknown) (unknown) Baseline (units (unknown) date) heart rate: 140 unknown) (unknown) (no (unknown) (unknown) Bipolar disorder (units (unknown) date) unknown) (unknown) (no (unknown) (unknown) Brother Anxiety (units (unknown) date) unknown) (unknown) (no (unknown) (unknown) Cancer (units (unkno wn) date) unknown) (unknown) (no (unknown) (unknown) Category of (units (un known) date) Tracing: Reactive unknown) (unknown) (no (unknown) (unknown) Comments/Additio (units (unknown) date) nal reasons for unknown) admission: (unknown) (no (unknown) (unknown) Contraction (units (un known) date) Frequency unknown) (minutes): 5 (unknown) (no (unknown) (unknown) : 2000 (units (unknown) date) Acct:[id number] unknown) (unknown) (no (unknown) (unknown) Date of Service: (units (unknown) date) 10/03/22 unknown) (unknown) (no (unknown) (unknown) Date of (units (unkno wn) date) evaluation: unknown) 10/03/22 (unknown) (no (unknown) (unknown) Depression (units (unk nown) date) unknown) (unknown) (no (unknown) (unknown) Diabetes (units (unkno wn) date) mellitus unknown) (unknown) (no (unknown) (unknown) Diagnosis, (units (unk nown) date) Plan/Disposition unknown) (unknown) (no (unknown) (unknown) Evaluation (units (unk nown) date) unknown) (unknown) (no (unknown) (unknown) Family History (units (unknown) date) (Reviewed unknown) 10/04/22 @ 07:18 by Cheryle Reza DO) (unknown) (no (unknown) (unknown) Father Diabetes (units (unknown) date) mellitus unknown) (unknown) (no (unknown) (unknown) Monitor (units ( unknown) date) Decelerations: unknown) Absent (unknown) (no (unknown) (unknown) monitor (units ( unknown) date) accelerations: unknown) Present (unknown) (no (unknown) (unknown) Final Diagnosis (units (unknown) date) unknown) (unknown) (no (unknown) (unknown) Grandfather (units (un known) date) Diabetes mellitus unknown) (unknown) (no (unknown) (unknown) Grandfather (units (un known) date) Family unknown) estrangement (unknown) (no (unknown) (unknown) Grandmother (units (un known) date) Cancer unknown) (unknown) (no (unknown) (unknown) Grandmother (units (un known) date) Diabetes unknown) mellitus (unknown) (no (unknown) (unknown) H/O hand surgery (units (unknown) date) unknown) 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 (unknown) (no (unknown) (unknown) History of (units (unk nown) date) removal of skin unknown) mole (unknown) (no (unknown) (unknown) Hyperlipidemia (units (unknown) date) unknown) (unknown) (no (unknown) (unknown) Hypertension (units (u nknown) date) unknown) (unknown) (no (unknown) (unknown) [facility] (units (unknown) date) [address] unknown) [place] [address] (unknown) (no (unknown) (unknown) Labor and (units (unkn own) date) Delivery Triage unknown) Note (unknown) (no (unknown) (unknown) Laboratory (units (unk nown) date) Results - last 24 unknown) hr (unknown) (no (unknown) (unknown) Labs (units (unkno wn) date) unknown) (unknown) (no (unknown) (unknown) Labs: (units (unkno wn) date) unknown) (unknown) (no (unknown) (unknown) Lung cancer (units (un known) date) unknown) (unknown) (no (unknown) (unknown) Medical History (units (unknown) date) (Reviewed unknown) 10/04/22 @ 07:18 by Cheryle Reza DO) (unknown) (no (unknown) (unknown) Mental health (units ( unknown) date) problem unknown) (unknown) (no (unknown) (unknown) Mother (units (unkno wn) date) Gestational unknown) diabetes (unknown) (no (unknown) (unknown) Non-invasive (units (u nknown) date) Membranes unknown) Rupture Test: negative (unknown) (no (unknown) (unknown) OB Disposition: (units (unknown) date) home unknown) (unknown) (no (unknown) (unknown) Objective (units (unkn own) date) unknown) (unknown) (no (unknown) (unknown) On-call OB (units (unk nown) date) Provider: unknown) Cheryle Reza (unknown) (no (unknown) (unknown) Ovarian cyst (units (u nknown) date) () unknown) (unknown) (no (unknown) (unknown) PFSH (units (unkno wn) date) unknown) (unknown) (no (unknown) (unknown) PID (acute (units (unk nown) date) pelvic unknown) inflammatory disease) (unknown) (no (unknown) (unknown) PTSD (units (unkno wn) date) (post-traumatic unknown) stress disorder) () (unknown) (no (unknown) (unknown) Patient: (units (unkno wn) date) [facility] N unknown) MR#: [id number] (unknown) (no (unknown) (unknown) Plan/Disposition (units (unknown) date) unknown) (unknown) (no (unknown) (unknown) Plan: (units (unkno wn) date) unknown) (unknown) (no (unknown) (unknown) Primary OB (units (unk nown) date) Provider: Chaka Flores (unknown) (no (unknown) (unknown) Prostate cancer (units (unknown) date) unknown) (unknown) (no (unknown) (unknown) Provider: (units (unkn own) date) Cheryle Reza unknown) D.O. 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 (unknown) (no (unknown) (unknown) Schizophrenia (units ( unknown) date) unknown) (unknown) (no (unknown) (unknown) Seizures (-2003) (units (unknown) date) unknown) (unknown) (no (unknown) (unknown) Signed (units (unkno wn) date) By:<Electronicall unknown) y signed by Edgardo VincentOSadia> (unknown) (no (unknown) (unknown) Sister Anxiety (units (unknown) date) unknown) (unknown) (no (unknown) (unknown) Sister (units (unkno wn) date) Depression unknown) (unknown) (no (unknown) (unknown) Smoking Status: (units (unknown) date) Former smoker unknown) (former vape use, quit) (unknown) (no (unknown) (unknown) Social History (units (unknown) date) (Reviewed unknown) 10/04/22 @ 07:18 by Cheryle Reza DO) (unknown) (no (unknown) (unknown) Status: Acute (units ( unknown) date) unknown) (unknown) (no (unknown) (unknown) Surgical History (units (unknown) date) (Reviewed unknown) 10/04/22 @ 07:18 by Cheryle Reza DO) (unknown) (no (unknown) (unknown) Type(s) of (units (unk nown) date) exercise: walking unknown) (unknown) (no (unknown) (unknown) UTI but will be (units (unknown) date) sent for culture. unknown) She was having mild contractions on the (unknown) (no (unknown) (unknown) Ur Culture (units (unk nown) date) Indicated? unknown) Specimen cultured (unknown) (no (unknown) (unknown) Ur Leukocyte (units (u nknown) date) Esterase 1+ H unknown) (unknown) (no (unknown) (unknown) Ur Specific (units (un known) date) [place] <=1.005 unknown) (unknown) (no (unknown) (unknown) Ur Squamous (units (un known) date) Epith Cells 1-5 unknown) /hpf (unknown) (no (unknown) (unknown) Ur Transition (units ( unknown) date) Epith Cell unknown) 1-5/hpf (unknown) (no (unknown) (unknown) Urine Appearance (units (unknown) date) Clear unknown) (unknown) (no (unknown) (unknown) Urine Bacteria (units (unknown) date) Few (2-10) H unknown) (unknown) (no (unknown) (unknown) Urine Bilirubin (units (unknown) date) Negative unknown) (unknown) (no (unknown) (unknown) Urine Color (units (un known) date) Yellow unknown) (unknown) (no (unknown) (unknown) Urine Glucose (units ( unknown) date) (UA) Negative unknown) (unknown) (no (unknown) (unknown) Urine Ketones (units ( unknown) date) Negative unknown) (unknown) (no (unknown) (unknown) Urine Nitrate (units ( unknown) date) Negative unknown) (unknown) (no (unknown) (unknown) Urine Occult (units (u nknown) date) Blood Negative unknown) (unknown) (no (unknown) (unknown) Urine Protein (units ( unknown) date) Negative unknown) (unknown) (no (unknown) (unknown) Urine RBC (units (unkn own) date) 0-1/hpf unknown) (unknown) (no (unknown) (unknown) Urine (units (unkno wn) date) Urobilinogen 0.2 unknown) (unknown) (no (unknown) (unknown) Urine WBC (units (unkn own) date) 10-30/hpf H unknown) (unknown) (no (unknown) (unknown) Urine pH 6.0 (units (u nknown) date) unknown) (unknown) (no (unknown) (unknown) Uterine (units (unkno wn) date) Contraction unknown) Intensity: Mild (unknown) (no (unknown) (unknown) Variability: (units (u nknown) date) Moderate (11-25) unknown) (unknown) (no (unknown) (unknown) Visit (units (unkno wn) date) Information unknown) (unknown) (no (unknown) (unknown) alcohol intake: (units (unknown) date) never unknown) (unknown) (no (unknown) (unknown) bathroom several (units (unknown) date) times an hour. unknown) Denies dysuria. She is also had some mild (unknown) (no (unknown) (unknown) center (units (u nknown) date) twice in the last unknown) week, the second time to rule out labor. (unknown) (no (unknown) (unknown) caffeine: Yes (units ( unknown) date) (occasionally, unknown) aware of 200mg limit) (unknown) (no (unknown) (unknown) carbon monox (units (u nknown) date) detector in home: unknown) Yes (unknown) (no (unknown) (unknown) contractions (units (u nknown) date) ceased and she unknown) felt much better. She will follow-up in clinic as (unknown) (no (unknown) (unknown) contractions (units (u nknown) date) however they have unknown) increased in frequency in the last hour to every (unknown) (no (unknown) (unknown) current (units (unkno [...] (unknown) date) year weight has: unknown) other ([id number] lb) (unknown) (no (unknown) (unknown) education level: (units (unknown) date) high school unknown) (unknown) (no (unknown) (unknown) fire (units (unkno wn) date) 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 unknown) home: Yes (unknown) (no (unknown) (unknown) firearms in (units (un known) date) home: Yes unknown) firearms unloaded and locked: Yes (unknown) (no (unknown) (unknown) has not had (units (un known) date) ongoing leaking unknown) but has had urinary frequency and is using the (unknown) (no (unknown) (unknown) household (units (unkn own) date) members: spouse unknown) (unknown) (no (unknown) (unknown) housing: (units (unkno wn) date) apartment unknown) (unknown) (no (unknown) (unknown) lives (units (unkno wn) date) independently: unknown) Yes (unknown) (no (unknown) (unknown) marital status: (units (unknown) date) unknown) (unknown) (no (unknown) (unknown) monitor though (units (unknown) date) patient did not unknown) rate them as painful. She had a labor (unknown) (no (unknown) (unknown) number of (units (unkn own) date) children: 0 unknown) (unknown) (no (unknown) (unknown) occupational (units (u nknown) date) status: unknown) unemployed (unknown) (no (unknown) (unknown) patient was (units (un known) date) reassured she was unknown) not ruptured. NST reactive. UA not suggestive of (unknown) (no (unknown) (unknown) pets and (units (unkno wn) date) animals: Yes (1 unknown) dog 1 cat; aware of toxo) (unknown) (no (unknown) (unknown) rupture of (units (unk nown) date) membranes. Last unknown) night on 10/02/22 she had a small gush of fluid. She (unknown) (no (unknown) (unknown) scheduled or (units (u nknown) date) return sooner if unknown) needed. (unknown) (no (unknown) (unknown) seatbelt use: (units ( unknown) date) always unknown) (unknown) (no (unknown) (unknown) second hand (units (un known) date) exposure: Yes unknown) (while visiting family (mom smokes)) (unknown) (no (unknown) (unknown) special mirella (units ( unknown) date) needs: No unknown) (unknown) (no (unknown) (unknown) substance use (units ( unknown) date) type: marijuana unknown) (quit when she learned she was ) (unknown) (no (unknown) (unknown) than 3 cm, (units (unk nown) date) reassuring unknown) against labor. She received 1 dose of nifedipine, (unknown) (no (unknown) (unknown) travel history: (units [...] unknown) date) detector in home: unknown) Yes (unknown) (no (unknown) (unknown) workup 4 days (units ( unknown) date) ago with negative unknown) fibronectin and cervical length greater Result panel 1823 (unknown) (no date) (unknown) (unknown) No growth. (units (un known) unknown) Result panel 1824 (unknown) (no date) (unknown) (unknown) No growth. (units (un known) unknown) Result panel 1825 (unknown) (no (unknown) (unknown) (no value) (units (unk nown) date) unknown) (unknown) (no (unknown) (unknown) [id number] (units (unkno wn) date) unknown) (unknown) (no (unknown) (unknown) 10/10/22 (units (unkno wn) date) unknown) (unknown) (no (unknown) (unknown) 1. Single (units (unkn own) date) living unknown) intrauterine in vertex presentation. (unknown) (no (unknown) (unknown) [address] (units (unkn own) date) [address] unknown) (unknown) (no (unknown) (unknown) 2. Closed (units (unkn own) date) cervix measuring unknown) 2.9 cm. (unknown) (no (unknown) (unknown) A single living (units (unknown) date) intrauterine unknown) gestation is present. (unknown) (no (unknown) (unknown) Accession (units (unkn own) date) Number: unknown) [id number] (unknown) (no (unknown) (unknown) Age/Sex: 22 / F (units (unknown) date) Date of Service: unknown) (unknown) (no (unknown) (unknown) Amniotic fluid (units (unknown) date) index: 11.2 cm, unknown) normal range is 5-24 cm. (unknown) (no (unknown) (unknown) LISA [place] (units ( unknown) date) [id number] unknown) (unknown) (no (unknown) (unknown) Approved by: (units (u nknown) date) sol Lisa) Luis on 10/10/2022 at 21:25 (unknown) (no (unknown) (unknown) COMPARISON: (units (un known) date) [facility], unknown) US, US OB TRANSVAGINAL, 09/29/2022, 13:12. (unknown) (no (unknown) (unknown) Clinically (units (unk nown) date) estimated unknown) gestational age: 29 weeks two days (unknown) (no (unknown) (unknown) : 2000 (units (unknown) date) Acct:[id number] unknown) (unknown) (no (unknown) (unknown) Dictated by: (units (u nknown) date) sol Lisa) Luis on 10/10/2022 at 21:23 (unknown) (no (unknown) (unknown) Endovaginal (units (un known) date) scanning: unknown) Performed for increased cervical detail (unknown) (no (unknown) (unknown) Estimated date (units (unknown) date) of delivery unknown) (TIFFANIE) from first dating scan: 12/22/22. (unknown) (no (unknown) (unknown) FINDINGS: (units (unkn own) date) unknown) (unknown) (no (unknown) (unknown) heart (units (un known) date) rate: 144 beats unknown) per minute. (unknown) (no (unknown) (unknown) First dating (units (u nknown) date) scan (date and unknown) location): 05/17/22. (unknown) (no (unknown) (unknown) IMPRESSION: (units (un known) date) unknown) (unknown) (no (unknown) (unknown) INDICATIONS: (units (u nknown) date) PTL unknown) (unknown) (no (unknown) (unknown) [facility] (units (unknown) date) unknown) (unknown) (no (unknown) (unknown) LMP-based (units (unkn own) date) estimated date unknown) of delivery (ITFFANIE): 12/24/22. (unknown) (no (unknown) (unknown) Last menstrual (units (unknown) date) period (LMP): unknown) 03/19/22. (unknown) (no (unknown) (unknown) Loc: LABOR (units (unk nown) date) [id number] unknown) (unknown) (no (unknown) (unknown) Maternal (units (unkno wn) date) cervical canal: unknown) Closed and 2.9 cm long. Normal lower limit is 2.5 (unknown) (no (unknown) (unknown) OUTSIDE/PRIOR (units ( unknown) date) DATING DATA: unknown) (unknown) (no (unknown) (unknown) Ordering (units (unkno wn) date) Provider: unknown) Cheryle Reza D.O. (unknown) (no (unknown) (unknown) PROCEDURE: US (units ( unknown) date) OB TRANSVAGINAL unknown) (unknown) (no (unknown) (unknown) Patient: (units (unkno wn) date) Piper Arguelles unknown) MR#: [id number] (unknown) (no (unknown) (unknown) Placenta: (units (unkn own) date) Placental unknown) position is posterior, without previa. (unknown) (no (unknown) (unknown) Presentation: (units ( unknown) date) Vertex. unknown) (unknown) (no (unknown) (unknown) Procedure: US (units ( unknown) date) OB transvaginal unknown) (unknown) (no (unknown) (unknown) Real-time (units (unkn own) date) scanning was unknown) performed of the fetus, with image documentation. (unknown) (no (unknown) (unknown) Signed (units (unkno wn) date) unknown) (unknown) (no (unknown) (unknown) Single deepest (units (unknown) date) vertical pocket unknown) is 4.0 cm. (unknown) (no (unknown) (unknown) TECHNIQUE: (units (unk nown) date) unknown) (unknown) (no (unknown) (unknown) The (units (unkno wn) date) calculations are unknown) made using the clinical TIFFANIE of 12/24/22. (unknown) (no (unknown) (unknown) Ultrasound (units (unk nown) date) Report unknown) (unknown) (no (unknown) (unknown) cm. This (units (unkno wn) date) unknown) (unknown) (no (unknown) (unknown) was measured (units (u nknown) date) via transvaginal unknown) imaging. Result panel 1826 (unknown) (no date) (unknown) (unknown) 0.2 e.u./dl (unkn own) (unknown) (no date) (unknown) (unknown) 1-5 /HPF (units (unkn own) unknown) (unknown) (no date) (unknown) (unknown) 1-5/HPF (units (unkn own) unknown) (unknown) (no date) (unknown) (unknown) 1.010 (units (unkn own) unknown) (unknown) (no date) (unknown) (unknown) 7.0 (units (unkn own) unknown) (unknown) (no date) (unknown) (unknown) CLEAR (units (unkn own) unknown) (unknown) (no date) (unknown) (unknown) Cult Not (units (unkn own) Indicated unknown) (unknown) (no date) (unknown) (unknown) NEGATIVE (units (unkn own) unknown) (unknown) (no date) (unknown) (unknown) NEGATIVE g/dl (unkn own) (unknown) (no date) (unknown) (unknown) None Seen (units (unk nown) unknown) (unknown) (no date) (unknown) (unknown) None Seen (units (unk nown) unknown) (unknown) (no date) (unknown) (unknown) YELLOW (units (unkn own) unknown) (unknown) (no date) (unknown) (unknown) YELLOW (units (unkn own) unknown) Result panel 1827 (unknown) (no date) (unknown) (unknown) Negative (units (unkn own) unknown) Result panel 1828 (unknown) (no (unknown) (unknown) (no value) (units (unk nown) date) unknown) (unknown) (no (unknown) (unknown) [id number] (units (unkno wn) date) unknown) (unknown) (no (unknown) (unknown) Age/Sex: 22 / F (units (unknown) date) unknown) (unknown) (no (unknown) (unknown) Call Coverage (units ( unknown) date) Note unknown) (unknown) (no (unknown) (unknown) : 2000 (units (unknown) date) Acct:[id number] unknown) (unknown) (no (unknown) (unknown) Date of Patient (units (unknown) date) Contact: unknown) 10/10/22 (unknown) (no (unknown) (unknown) Date of (units (unkno wn) date) Service: unknown) 10/10/22 (unknown) (no (unknown) (unknown) FYI: Piper is (units (unknown) date) a 22 year old unknown) who just discharged home after being seen in (unknown) (no (unknown) (unknown) [facility] (units (unknown) date) [address] [place] [address] Street unknown) [place] [address] (unknown) (no (unknown) (unknown) Narrative of (units (u nknown) date) Care Provided: unknown) (unknown) (no (unknown) (unknown) Negative ffn, (units (u nknown) date) cervical length unknown) US 2.7 cm, 2 contractions noticed in approx 1 hour (unknown) (no (unknown) (unknown) Note (units (unkno wn) date) unknown) (unknown) (no (unknown) (unknown) Patient: (units (unkno wn) date) Blane,Piper Betancourt unknown) MR#: [id number] (unknown) (no (unknown) (unknown) Provider: Linh (units (unknown) date) Ras unknown) (unknown) (no (unknown) (unknown) Signed By: (units (unk nown) date) unknown) (unknown) (no (unknown) (unknown) Time of Patient (units (unknown) date) Contact: 21:37 unknown) (unknown) (no (unknown) (unknown) during RNST. RN (units (unknown) date) reassured her unknown) about pelvic changes of . (unknown) (no (unknown) (unknown) triage for (units (unk nown) date) pelvic pain and unknown) contractions at 30 weeks. Result panel [id number] (unknown) (no (unknown) (unknown) (no value) (units (unk nown) date) unknown) (unknown) (no (unknown) (unknown) [id number] (units (unkno wn) date) unknown) (unknown) (no (unknown) (unknown) 103/63 (units (unkno wn) date) unknown) (unknown) (no (unknown) (unknown) 37.3 C (units (unkno wn) date) unknown) (unknown) (no (unknown) (unknown) 93 bpm (units (unkno wn) date) unknown) (unknown) (no (unknown) (unknown) ADHD (units (unkno wn) date) unknown) (unknown) (no (unknown) (unknown) Acne (units (unkno wn) date) unknown) (unknown) (no (unknown) (unknown) Age/Sex: 22 / F (units (unknown) date) unknown) (unknown) (no (unknown) (unknown) All negative (units (u nknown) date) except as stated unknown) in HPI. (unknown) (no (unknown) (unknown) Anemia (-2020) (units (unknown) date) unknown) (unknown) (no (unknown) (unknown) Anesthesia (units (unk nown) date) unknown) (unknown) (no (unknown) (unknown) Anxiety (units (unkno wn) date) unknown) (unknown) (no (unknown) (unknown) Autism (units (unkno wn) date) unknown) (unknown) (no (unknown) (unknown) Bipolar disorder (units (unknown) date) unknown) (unknown) (no (unknown) (unknown) Brother Anxiety (units (unknown) date) unknown) (unknown) (no (unknown) (unknown) Cancer (units (unkno wn) date) unknown) (unknown) (no (unknown) (unknown) Comments/Additio (units (unknown) date) nal reasons for unknown) admission: (unknown) (no (unknown) (unknown) Contractions (units (u nknown) date) were every 10-30 unknown) minutes, lasting a minute. Baby moving well. (unknown) (no (unknown) (unknown) : 2000 (units (unknown) date) Acct:[id number] unknown) (unknown) (no (unknown) (unknown) Date of Service: (units (unknown) date) 10/10/22 unknown) (unknown) (no (unknown) (unknown) Date of (units (unkno wn) date) evaluation: unknown) 10/10/22 (unknown) (no (unknown) (unknown) Denies loss of (units (unknown) date) fluid. Pelvic unknown) pain is new and feels like her body is opening up. (unknown) (no (unknown) (unknown) Depression (units (unk nown) date) unknown) (unknown) (no (unknown) (unknown) Piper called (units (unknown) date) concerned about unknown) contractions and pelvic pain most of the day. (unknown) (no (unknown) (unknown) Diabetes (units (unkno wn) date) mellitus unknown) (unknown) (no (unknown) (unknown) Family History (units (unknown) date) (Reviewed unknown) 10/10/22 @ 21:45 by Linh Mcginnis, TAB, STEVE) (unknown) (no (unknown) (unknown) Father Diabetes (units (unknown) date) mellitus unknown) (unknown) (no (unknown) (unknown) Grandfather (units (un known) date) Diabetes mellitus unknown) (unknown) (no (unknown) (unknown) Grandfather (units (un known) date) Family unknown) estrangement (unknown) (no (unknown) (unknown) Grandmother (units (un known) date) Cancer unknown) (unknown) (no (unknown) (unknown) Grandmother (units (un known) date) Diabetes unknown) mellitus (unknown) (no (unknown) (unknown) H/O hand surgery (units (unknown) date) unknown) 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 (unknown) (no (unknown) (unknown) History of (units (unk nown) date) removal of skin unknown) mole (unknown) (no (unknown) (unknown) Hyperlipidemia (units (unknown) date) unknown) (unknown) (no (unknown) (unknown) Hypertension (units (u nknown) date) unknown) (unknown) (no (unknown) (unknown) Imaging (units (unkno wn) date) unknown) (unknown) (no (unknown) (unknown) [facility] (units (unknown) date) [address] unknown) [place] [address] (unknown) (no (unknown) (unknown) Labor and (units (unkn own) date) Delivery Triage unknown) Note (unknown) (no (unknown) (unknown) Lung cancer (units (un known) date) unknown) (unknown) (no (unknown) (unknown) Medical History (units (unknown) date) (Reviewed unknown) 10/10/22 @ 21:45 by Linh Mcginnis, CNM, [employer]) (unknown) (no (unknown) (unknown) Mental health (units ( unknown) date) problem unknown) (unknown) (no (unknown) (unknown) Mother (units (unkno wn) date) Gestational unknown) diabetes (unknown) (no (unknown) (unknown) My impression: (units (unknown) date) unknown) (unknown) (no (unknown) (unknown) Narrative: (units (unk nown) date) unknown) (unknown) (no (unknown) (unknown) Normal cervical (units (unknown) date) length for 30 unknown) weeks of . Normal ANGELINE. (unknown) (no (unknown) (unknown) Objective (units (unkn own) date) unknown) (unknown) (no (unknown) (unknown) On-call OB (units (unk nown) date) Provider: Linh Hernandez unknown) Ras (unknown) (no (unknown) (unknown) Ovarian cyst (units (u nknown) date) () unknown) (unknown) (no (unknown) (unknown) PFSH (units (unkno wn) date) unknown) (unknown) (no (unknown) (unknown) PID (acute (units (unk nown) date) pelvic unknown) inflammatory disease) (unknown) (no (unknown) (unknown) PTSD (units (unkno wn) date) (post-traumatic unknown) stress disorder) () (unknown) (no (unknown) (unknown) Patient: (units (unkno wn) date) Sites,Piper N unknown) MR#: [id number] (unknown) (no (unknown) (unknown) Primary OB (units (unk nown) date) Provider: Chaka unknownBlanca Flores (unknown) (no (unknown) (unknown) Prostate cancer (units (unknown) date) unknown) (unknown) (no (unknown) (unknown) Provider: Linh (units (unknown) date) Ras unknown) (unknown) (no (unknown) (unknown) Reason for (units (unk nown) date) Evaluation: Yes unknown) non-stress test and Yes other 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 (unknown) (no (unknown) (unknown) Review of (units (unkn own) date) Systems unknown) (unknown) (no (unknown) (unknown) Rule out (units (unkno wn) date) pre-term labor unknown) (unknown) (no (unknown) (unknown) Schizophrenia (units ( unknown) date) unknown) (unknown) (no (unknown) (unknown) Seizures () (units (unknown) date) unknown) (unknown) (no (unknown) (unknown) Signed By: (units (unk nown) date) unknown) (unknown) (no (unknown) (unknown) Sister Anxiety (units (unknown) date) unknown) (unknown) (no (unknown) (unknown) Sister (units (unkno wn) date) Depression unknown) (unknown) (no (unknown) (unknown) Smoking Status: (units (unknown) date) Former smoker unknown) (former vape use, quit) (unknown) (no (unknown) (unknown) Social History (units (unknown) date) (Reviewed unknown) 10/10/22 @ 21:45 by Linh Mcginnis CNM, STEVE) (unknown) (no (unknown) (unknown) Surgical History (units (unknown) date) (Reviewed unknown) 10/10/22 @ 21:45 by Linh Mcginnis CNM, STEVE) (unknown) (no (unknown) (unknown) Type(s) of (units (unk nown) date) exercise: walking unknown) (unknown) (no (unknown) (unknown) Visit (units (unkno wn) date) Information unknown) (unknown) (no (unknown) (unknown) Vital Signs (units (un known) date) unknown) (unknown) (no (unknown) (unknown) Vital Signs: (units (u nknown) date) unknown) (unknown) (no (unknown) (unknown) alcohol intake: (units (unknown) date) never unknown) (unknown) (no (unknown) (unknown) caffeine: Yes (units ( unknown) date) (occasionally, unknown) aware of 200mg limit) (unknown) (no (unknown) (unknown) carbon monox (units (u nknown) date) detector in home: unknown) Yes (unknown) (no (unknown) (unknown) current (units (unkno [...] (unknown) date) year weight has: unknown) other ([id number] lb) (unknown) (no (unknown) (unknown) education level: (units (unknown) date) high school unknown) (unknown) (no (unknown) (unknown) fire (units (unkno wn) date) 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 unknown) home: Yes (unknown) (no (unknown) (unknown) firearms in (units (un known) date) home: Yes unknown) firearms unloaded and locked: Yes (unknown) (no (unknown) (unknown) household (units (unkn own) date) members: spouse unknown) (unknown) (no (unknown) (unknown) housing: (units (unkno wn) date) apartment unknown) (unknown) (no (unknown) (unknown) lives (units (unkno wn) date) independently: unknown) Yes (unknown) (no (unknown) (unknown) marital status: (units (unknown) date) unknown) (unknown) (no (unknown) (unknown) number of (units (unkn own) date) children: 0 unknown) (unknown) (no (unknown) (unknown) occupational (units (u nknown) date) status: unknown) unemployed (unknown) (no (unknown) (unknown) pets and (units (unkno wn) date) animals: Yes (1 unknown) dog 1 cat; aware of toxo) (unknown) (no (unknown) (unknown) (units (unkn own) date) ultrasound for unknown) cervical length: (unknown) (no (unknown) (unknown) seatbelt use: (units ( unknown) date) always unknown) (unknown) (no (unknown) (unknown) second hand (units (un known) date) exposure: Yes unknown) (while visiting family (mom smokes)) (unknown) (no (unknown) (unknown) special mirella (units ( unknown) date) needs: No unknown) (unknown) (no (unknown) (unknown) substance use (units ( unknown) date) type: marijuana unknown) (quit when she learned she was ) (unknown) (no (unknown) (unknown) travel history: (units [...] detector in home: unknown) Yes Result panel 1830 (unknown) (no (unknown) (unknown) (no value) (units (unk nown) date) unknown) (unknown) (no (unknown) (unknown) (1) (units (un known) date) uterine unknown) contractions: (unknown) (no (unknown) (unknown) [id number] (units (unkno wn) date) unknown) (unknown) (no (unknown) (unknown) 1. Single living (units (unknown) date) intrauterine unknown) in vertex presentation. (unknown) (no (unknown) (unknown) 103/63 (units (unkno wn) date) unknown) (unknown) (no (unknown) (unknown) 2. Closed cervix (units (unknown) date) measuring 2.9 cm. unknown) (unknown) (no (unknown) (unknown) 09/29/22). Normal (units (unknown) date) ANGELINE. unknown) (unknown) (no (unknown) (unknown) 37.3 C (units (unkno wn) date) unknown) (unknown) (no (unknown) (unknown) 93 bpm (units (unkno wn) date) unknown) (unknown) (no (unknown) (unknown) ? (units (unkno wn) date) unknown) (unknown) (no (unknown) (unknown) ADHD (units (unkno wn) date) unknown) (unknown) (no (unknown) (unknown) Acne (units (unkno wn) date) unknown) (unknown) (no (unknown) (unknown) Age/Sex: 22 / F (units (unknown) date) unknown) (unknown) (no (unknown) (unknown) All negative (units (u nknown) date) except as stated unknown) in HPI. (unknown) (no (unknown) (unknown) Anemia (-2020) (units (unknown) date) unknown) (unknown) (no (unknown) (unknown) Anesthesia (units (unk nown) date) unknown) (unknown) (no (unknown) (unknown) Anxiety (units (unkno wn) date) unknown) (unknown) (no (unknown) (unknown) Autism (units (unkno wn) date) unknown) (unknown) (no (unknown) (unknown) Baseline (units (unknown) date) heart rate: 130 unknown) (unknown) (no (unknown) (unknown) Bipolar disorder (units (unknown) date) unknown) (unknown) (no (unknown) (unknown) Brother Anxiety (units (unknown) date) unknown) (unknown) (no (unknown) (unknown) Cancer (units (unkno wn) date) unknown) (unknown) (no (unknown) (unknown) Comments/Additio (units (unknown) date) nal reasons for unknown) admission: (unknown) (no (unknown) (unknown) Comments: (units (unkn own) date) unknown) (unknown) (no (unknown) (unknown) Contractions (units (u nknown) date) were every 10-30 unknown) minutes, lasting a minute. Baby moving well. (unknown) (no (unknown) (unknown) : 2000 (units (unknown) date) Acct:[id number] unknown) (unknown) (no (unknown) (unknown) Date of Service: (units (unknown) date) 10/10/22 unknown) (unknown) (no (unknown) (unknown) Date of (units (unkno wn) date) evaluation: unknown) 10/10/22 (unknown) (no (unknown) (unknown) Denies loss of (units (unknown) date) fluid. Pelvic unknown) pain is new and feels like her body is opening up. (unknown) (no (unknown) (unknown) Depression (units (unk nown) date) unknown) (unknown) (no (unknown) (unknown) Piper called (units (unknown) date) concerned about unknown) contractions and pelvic pain most of the day. (unknown) (no (unknown) (unknown) Diabetes (units (unkno wn) date) mellitus unknown) (unknown) (no (unknown) (unknown) Diagnosis, (units (unk nown) date) Plan/Disposition unknown) (unknown) (no (unknown) (unknown) Evaluation (units (unk nown) date) unknown) (unknown) (no (unknown) (unknown) Family History (units (unknown) date) (Reviewed unknown) 10/10/22 @ 21:45 by Linh Mcginnis, TAB, STEVE) (unknown) (no (unknown) (unknown) Father Diabetes (units (unknown) date) mellitus unknown) (unknown) (no (unknown) (unknown) Monitor (units ( unknown) date) Decelerations: unknown) Absent (unknown) (no (unknown) (unknown) (units (unkno wn) date) fibronectin unknown) negative (unknown) (no (unknown) (unknown) monitor (units ( unknown) date) accelerations: unknown) Present (unknown) (no (unknown) (unknown) Final Diagnosis (units (unknown) date) unknown) (unknown) (no (unknown) (unknown) Grandfather (units (un known) date) Diabetes mellitus unknown) (unknown) (no (unknown) (unknown) Grandfather (units (un known) date) Family unknown) estrangement (unknown) (no (unknown) (unknown) Grandmother (units (un known) date) Cancer unknown) (unknown) (no (unknown) (unknown) Grandmother (units (un known) date) Diabetes unknown) mellitus (unknown) (no (unknown) (unknown) H/O hand surgery (units (unknown) date) unknown) 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 (unknown) (no (unknown) (unknown) History of (units (unk nown) date) removal of skin unknown) mole (unknown) (no (unknown) (unknown) Hyperlipidemia (units (unknown) date) unknown) (unknown) (no (unknown) (unknown) Hypertension (units (u nknown) date) unknown) (unknown) (no (unknown) (unknown) Imaging (units (unkno wn) date) unknown) (unknown) (no (unknown) (unknown) [facility] (units (unknown) date) [address] [place] [address] unknown) [place] [address] (unknown) (no (unknown) (unknown) Labor and (units (unkn own) date) Delivery Triage unknown) Note (unknown) (no (unknown) (unknown) Labs (units (unkno wn) date) unknown) (unknown) (no (unknown) (unknown) Labs: (units (unkno wn) date) unknown) (unknown) (no (unknown) (unknown) Lung cancer (units (un known) date) unknown) (unknown) (no (unknown) (unknown) MDM - OB/Uterine (units (unknown) date) Contractions unknown) (unknown) (no (unknown) (unknown) MDM Narrative (units ( unknown) date) unknown) (unknown) (no (unknown) (unknown) Medical History (units (unknown) date) (Reviewed unknown) 10/10/22 @ 21:45 by Linh Mcginnis CNM, STEVE) (unknown) (no (unknown) (unknown) Medical decision (units (unknown) date) making narrative: unknown) (unknown) (no (unknown) (unknown) Mental health (units ( unknown) date) problem unknown) (unknown) (no (unknown) (unknown) Mother (units (unkno wn) date) Gestational unknown) diabetes (unknown) (no (unknown) (unknown) My impression: (units (unknown) date) unknown) (unknown) (no (unknown) (unknown) Narrative: (units (unk nown) date) unknown) (unknown) (no (unknown) (unknown) Negative UC (units (un known) date) 10/03/22. unknown) (unknown) (no (unknown) (unknown) Normal cervical (units (unknown) date) length for 30 unknown) weeks of (currently 2.9 cm; was 3.1 on (unknown) (no (unknown) (unknown) Objective (units (unkn own) date) unknown) (unknown) (no (unknown) (unknown) On-call OB (units (unk nown) date) Provider: Linh Hernandez unknown) Ras (unknown) (no (unknown) (unknown) Ovarian cyst (units (u nknown) date) () unknown) (unknown) (no (unknown) (unknown) PFSH (units (unkno wn) date) unknown) (unknown) (no (unknown) (unknown) PID (acute (units (unk nown) date) pelvic unknown) inflammatory disease) (unknown) (no (unknown) (unknown) PTSD (units (unkno wn) date) (post-traumatic unknown) stress disorder) () (unknown) (no (unknown) (unknown) Patient: (units (unkno wn) date) [facility] N unknown) MR#: [id number] (unknown) (no (unknown) (unknown) Pre-term (units (unkno wn) date) contractions unknown) without abnormal cervical change. (unknown) (no (unknown) (unknown) Primary OB (units (unk nown) date) Provider: Chaka Flores (unknown) (no (unknown) (unknown) Prostate cancer (units (unknown) date) unknown) (unknown) (no (unknown) (unknown) Provider: Linh (units (unknown) date) Ras unknown) (unknown) (no (unknown) (unknown) Radiologist's (units ( unknown) date) impression: unknown) (unknown) (no (unknown) (unknown) Reason for (units (unk nown) date) Evaluation: Yes unknown) non-stress test and Yes other 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 (unknown) (no (unknown) (unknown) Review of (units (unkn own) date) Systems unknown) (unknown) (no (unknown) (unknown) Rule out (units (unkno wn) date) pre-term labor unknown) (unknown) (no (unknown) (unknown) Schizophrenia (units ( unknown) date) unknown) (unknown) (no (unknown) (unknown) Seizures (-2003) (units (unknown) date) unknown) (unknown) (no (unknown) (unknown) Signed By: (units (unk nown) date) unknown) (unknown) (no (unknown) (unknown) Sister Anxiety (units (unknown) date) unknown) (unknown) (no (unknown) (unknown) Sister (units (unkno wn) date) Depression unknown) (unknown) (no (unknown) (unknown) Smoking Status: (units (unknown) date) Former smoker unknown) (former vape use, quit) (unknown) (no (unknown) (unknown) Social History (units (unknown) date) (Reviewed unknown) 10/10/22 @ 21:45 by Linh Mcginnis CNM, STEVE) (unknown) (no (unknown) (unknown) Status: Acute (units ( unknown) date) unknown) (unknown) (no (unknown) (unknown) Surgical History (units (unknown) date) (Reviewed unknown) 10/10/22 @ 21:45 by Linh Mcginnis CNM, STEVE) (unknown) (no (unknown) (unknown) Type(s) of (units (unk nown) date) exercise: walking unknown) (unknown) (no (unknown) (unknown) UA negative. (units (u nknown) date) unknown) (unknown) (no (unknown) (unknown) Variability: (units (u nknown) date) Moderate (11-25) unknown) (unknown) (no (unknown) (unknown) Visit (units (unkno wn) date) Information unknown) (unknown) (no (unknown) (unknown) Vital Signs (units (un known) date) unknown) (unknown) (no (unknown) (unknown) Vital Signs: (units (u nknown) date) unknown) (unknown) (no (unknown) (unknown) alcohol intake: (units (unknown) date) never unknown) (unknown) (no (unknown) (unknown) caffeine: Yes (units ( unknown) date) (occasionally, unknown) aware of 200mg limit) (unknown) (no (unknown) (unknown) carbon monox (units (u nknown) date) detector in home: unknown) Yes (unknown) (no (unknown) (unknown) current (units (unkno [...] (unknown) date) year weight has: unknown) other ([id number] lb) (unknown) (no (unknown) (unknown) education level: (units (unknown) date) high school unknown) (unknown) (no (unknown) (unknown) fire (units (unkno wn) date) 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 unknown) home: Yes (unknown) (no (unknown) (unknown) firearms in (units (un known) date) home: Yes unknown) firearms unloaded and locked: Yes (unknown) (no (unknown) (unknown) household (units (unkn own) date) members: spouse unknown) (unknown) (no (unknown) (unknown) housing: (units (unkno wn) date) apartment unknown) (unknown) (no (unknown) (unknown) irregular (units (unkn own) date) contractions, SVE unknown) not done (unknown) (no (unknown) (unknown) lives (units (unkno wn) date) independently: unknown) Yes (unknown) (no (unknown) (unknown) marital status: (units (unknown) date) unknown) (unknown) (no (unknown) (unknown) number of (units (unkn own) date) children: 0 unknown) (unknown) (no (unknown) (unknown) occupational (units (u nknown) date) status: unknown) unemployed (unknown) (no (unknown) (unknown) pets and (units (unkno wn) date) animals: Yes (1 unknown) dog 1 cat; aware of toxo) (unknown) (no (unknown) (unknown) (units (unkn own) date) ultrasound for unknown) cervical length: (unknown) (no (unknown) (unknown) seatbelt use: (units ( unknown) date) always unknown) (unknown) (no (unknown) (unknown) second hand (units (un known) date) exposure: Yes unknown) (while visiting family (mom smokes)) (unknown) (no (unknown) (unknown) special mirella (units ( unknown) date) needs: No unknown) (unknown) (no (unknown) (unknown) substance use (units ( unknown) date) type: marijuana unknown) (quit when she learned she was ) (unknown) (no (unknown) (unknown) travel history: (units [...] detector in home: unknown) Yes Result panel [id number] (unknown) (no (unknown) (unknown) (no value) (units (unk nown) date) unknown) (unknown) (no (unknown) (unknown) 10/10/22 2215 (units ( unknown) date) unknown) (unknown) (no (unknown) (unknown) [id number] (units (unkno wn) date) unknown) (unknown) (no (unknown) (unknown) Age/Sex: 22 / F (units (unknown) date) unknown) (unknown) (no (unknown) (unknown) Call Coverage (units ( unknown) date) Note unknown) (unknown) (no (unknown) (unknown) : 2000 (units (unknown) date) Acct:[id number] unknown) (unknown) (no (unknown) (unknown) Date of Patient (units (unknown) date) Contact: unknown) 10/10/22 (unknown) (no (unknown) (unknown) Date of (units (unkno wn) date) Service: unknown) 10/10/22 (unknown) (no (unknown) (unknown) FYI: Piper jarquin (units (unknown) date) a 22 year old unknown) who just discharged home after being seen in (unknown) (no (unknown) (unknown) [facility] (units (unknown) date) [address] unknown) [place] [address] (unknown) (no (unknown) (unknown) Narrative of (units (u nknown) date) Care Provided: unknown) (unknown) (no (unknown) (unknown) Negative ffn, (units (u nknown) date) cervical length unknown) US 2.7 cm, 2 contractions noticed in approx 1 hour (unknown) (no (unknown) (unknown) Note (units (unkno wn) date) unknown) (unknown) (no (unknown) (unknown) Patient: (units (unkno wn) date) Blane,Piper Betancourt unknown) MR#: [id number] (unknown) (no (unknown) (unknown) Provider: Linh (units (unknown) date) Ras unknown) (unknown) (no (unknown) (unknown) Signed (units (unkno wn) date) By:<Electronical unknown) ly signed by Linh Mcginnis> (unknown) (no (unknown) (unknown) Time of Patient (units (unknown) date) Contact: 21:37 unknown) (unknown) (no (unknown) (unknown) during RNST. RN (units (unknown) date) reassured her unknown) about pelvic changes of . d/c home. (unknown) (no (unknown) (unknown) triage for (units (unk nown) date) pelvic pain and unknown) contractions at 30 weeks. Result panel 1832 (unknown) (no (unknown) (unknown) (no value) (units (unk nown) date) unknown) (unknown) (no (unknown) (unknown) (1) (units (un known) date) uterine unknown) contractions: (unknown) (no (unknown) (unknown) 10/10/22 2217 (units ( unknown) date) unknown) (unknown) (no (unknown) (unknown) [id number] (units (unkno wn) date) unknown) (unknown) (no (unknown) (unknown) 1. Single living (units (unknown) date) intrauterine unknown) in vertex presentation. (unknown) (no (unknown) (unknown) 103/63 (units (unkno wn) date) unknown) (unknown) (no (unknown) (unknown) 2. Closed cervix (units (unknown) date) measuring 2.9 cm. unknown) (unknown) (no (unknown) (unknown) 09/29/22 CL: 3.1 (units (unknown) date) cm unknown) (unknown) (no (unknown) (unknown) 09/29/22). Normal (units (unknown) date) ANGELINE. unknown) (unknown) (no (unknown) (unknown) 10/10/22 CL: 2.9 (units (unknown) date) cm unknown) (unknown) (no (unknown) (unknown) 37.3 C (units (unkno wn) date) unknown) (unknown) (no (unknown) (unknown) 93 bpm (units (unkno wn) date) unknown) (unknown) (no (unknown) (unknown) ? (units (unkno wn) date) unknown) (unknown) (no (unknown) (unknown) ADHD (units (unkno wn) date) unknown) (unknown) (no (unknown) (unknown) Acne (units (unkno wn) date) unknown) (unknown) (no (unknown) (unknown) Age/Sex: 22 / F (units (unknown) date) unknown) (unknown) (no (unknown) (unknown) All negative (units (u nknown) date) except as stated unknown) in HPI. (unknown) (no (unknown) (unknown) Anemia (-2020) (units (unknown) date) unknown) (unknown) (no (unknown) (unknown) Anesthesia (units (unk nown) date) unknown) (unknown) (no (unknown) (unknown) Anxiety (units (unkno wn) date) unknown) (unknown) (no (unknown) (unknown) Autism (units (unkno wn) date) unknown) (unknown) (no (unknown) (unknown) Baseline (units (unknown) date) heart rate: 130 unknown) (unknown) (no (unknown) (unknown) Bipolar disorder (units (unknown) date) unknown) (unknown) (no (unknown) (unknown) Brother Anxiety (units (unknown) date) unknown) (unknown) (no (unknown) (unknown) Cancer (units (unkno wn) date) unknown) (unknown) (no (unknown) (unknown) Comments/Additio (units (unknown) date) nal reasons for unknown) admission: (unknown) (no (unknown) (unknown) Comments: (units (unkn own) date) unknown) (unknown) (no (unknown) (unknown) Contractions (units (u nknown) date) were every 10-30 unknown) minutes, lasting a minute. Baby moving well. (unknown) (no (unknown) (unknown) : 2000 (units (unknown) date) Acct:[id number] unknown) (unknown) (no (unknown) (unknown) Date of Service: (units (unknown) date) 10/10/22 unknown) (unknown) (no (unknown) (unknown) Date of (units (unkno wn) date) evaluation: unknown) 10/10/22 (unknown) (no (unknown) (unknown) Denies loss of (units (unknown) date) fluid. Pelvic unknown) pain is new and feels like her body is opening up. (unknown) (no (unknown) (unknown) Depression (units (unk nown) date) unknown) (unknown) (no (unknown) (unknown) Piper called (units (unknown) date) concerned about unknown) contractions and pelvic pain most of the day. (unknown) (no (unknown) (unknown) Diabetes (units (unkno wn) date) mellitus unknown) (unknown) (no (unknown) (unknown) Diagnosis, (units (unk nown) date) Plan/Disposition unknown) (unknown) (no (unknown) (unknown) Evaluation (units (unk nown) date) unknown) (unknown) (no (unknown) (unknown) Family History (units (unknown) date) (Reviewed unknown) 10/10/22 @ 21:45 by Linh Mcginnis CNM, STEVE) (unknown) (no (unknown) (unknown) Father Diabetes (units (unknown) date) mellitus unknown) (unknown) (no (unknown) (unknown) Monitor (units ( unknown) date) Decelerations: unknown) Absent (unknown) (no (unknown) (unknown) (units (unkno wn) date) fibronectin unknown) negative (unknown) (no (unknown) (unknown) monitor (units ( unknown) date) accelerations: unknown) Present (unknown) (no (unknown) (unknown) Final Diagnosis (units (unknown) date) unknown) (unknown) (no (unknown) (unknown) Grandfather (units (un known) date) Diabetes mellitus unknown) (unknown) (no (unknown) (unknown) Grandfather (units (un known) date) Family unknown) estrangement (unknown) (no (unknown) (unknown) Grandmother (units (un known) date) Cancer unknown) (unknown) (no (unknown) (unknown) Grandmother (units (un known) date) Diabetes unknown) mellitus (unknown) (no (unknown) (unknown) H/O hand surgery (units (unknown) date) unknown) 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 (unknown) (no (unknown) (unknown) History of (units (unk nown) date) removal of skin unknown) mole (unknown) (no (unknown) (unknown) Hyperlipidemia (units (unknown) date) unknown) (unknown) (no (unknown) (unknown) Hypertension (units (u nknown) date) unknown) (unknown) (no (unknown) (unknown) Imaging (units (unkno wn) date) unknown) (unknown) (no (unknown) (unknown) [facility] (units (unknown) date) [address] unknown) [place] [address] (unknown) (no (unknown) (unknown) Lab Data (units (unkno wn) date) unknown) (unknown) (no (unknown) (unknown) Labor and (units (unkn own) date) Delivery Triage unknown) Note (unknown) (no (unknown) (unknown) Labs (units (unkno wn) date) unknown) (unknown) (no (unknown) (unknown) Labs: (units (unkno wn) date) unknown) (unknown) (no (unknown) (unknown) Lung cancer (units (un known) date) unknown) (unknown) (no (unknown) (unknown) MDM - OB/Uterine (units (unknown) date) Contractions unknown) (unknown) (no (unknown) (unknown) MDM Narrative (units ( unknown) date) unknown) (unknown) (no (unknown) (unknown) Medical History (units (unknown) date) (Reviewed unknown) 10/10/22 @ 21:45 by Linh Mcginnis, TAB, STEVE) (unknown) (no (unknown) (unknown) Medical decision (units (unknown) date) making narrative: unknown) (unknown) (no (unknown) (unknown) Mental health (units ( unknown) date) problem unknown) (unknown) (no (unknown) (unknown) Mother (units (unkno wn) date) Gestational unknown) diabetes (unknown) (no (unknown) (unknown) My impression: (units (unknown) date) unknown) (unknown) (no (unknown) (unknown) NST (units (unkno wn) date) unknown) (unknown) (no (unknown) (unknown) Narrative: (units (unk nown) date) unknown) (unknown) (no (unknown) (unknown) Negative UA (units (un known) date) unknown) (unknown) (no (unknown) (unknown) Negative UC (units (un known) date) 10/03/22. unknown) (unknown) (no (unknown) (unknown) Normal cervical (units (unknown) date) length for 30 unknown) weeks of (currently 2.9 cm; was 3.1 on (unknown) (no (unknown) (unknown) Objective (units (unkn own) date) unknown) (unknown) (no (unknown) (unknown) Offer nifedipine (units (unknown) date) for reassurance; unknown) Piper declines (unknown) (no (unknown) (unknown) On-call OB (units (unk nown) date) Provider: Linh Hernandez unknown) Ras (unknown) (no (unknown) (unknown) Ovarian cyst (units (u nknown) date) () unknown) (unknown) (no (unknown) (unknown) PFSH (units (unkno wn) date) unknown) (unknown) (no (unknown) (unknown) PID (acute (units (unk nown) date) pelvic unknown) inflammatory disease) (unknown) (no (unknown) (unknown) PTSD (units (unkno wn) date) (post-traumatic unknown) stress disorder) () (unknown) (no (unknown) (unknown) Patient: (units (unkno wn) date) Sites,Piper N unknown) MR#: [id number] (unknown) (no (unknown) (unknown) Plan/Disposition (units (unknown) date) unknown) (unknown) (no (unknown) (unknown) Plan: (units (unkno wn) date) unknown) (unknown) (no (unknown) (unknown) Pre-term (units (unkno wn) date) contractions unknown) without abnormal cervical change. (unknown) (no (unknown) (unknown) Primary OB (units (unk nown) date) Provider: Chaka unknownBlanca Flores (unknown) (no (unknown) (unknown) Prostate cancer (units (unknown) date) unknown) (unknown) (no (unknown) (unknown) Provider: Linh (units (unknown) date) Ras unknown) (unknown) (no (unknown) (unknown) Radiologist's (units ( unknown) date) impression: unknown) (unknown) (no (unknown) (unknown) Reason for (units (unk nown) date) Evaluation: Yes unknown) non-stress test and Yes other 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 (unknown) (no (unknown) (unknown) Review of (units (unkn own) date) Systems unknown) (unknown) (no (unknown) (unknown) Rule out (units (unkno wn) date) cervical changes unknown) consistent with labor with cervical length (unknown) (no (unknown) (unknown) Rule out (units (unkno wn) date) pre-term labor unknown) (unknown) (no (unknown) (unknown) Schizophrenia (units ( unknown) date) unknown) (unknown) (no (unknown) (unknown) Seizures (-2003) (units (unknown) date) unknown) (unknown) (no (unknown) (unknown) Signed (units (unkno wn) date) By:<Electronicall unknown) y signed by Linh Mcginnis> (unknown) (no (unknown) (unknown) Sister Anxiety (units (unknown) date) unknown) (unknown) (no (unknown) (unknown) Sister (units (unkno wn) date) Depression unknown) (unknown) (no (unknown) (unknown) Smoking Status: (units (unknown) date) Former smoker unknown) (former vape use, quit) (unknown) (no (unknown) (unknown) Social History (units (unknown) date) (Reviewed unknown) 10/10/22 @ 21:45 by Linh Mcginnis CNM, STEVE) (unknown) (no (unknown) (unknown) Status: Acute (units ( unknown) date) unknown) (unknown) (no (unknown) (unknown) Surgical History (units (unknown) date) (Reviewed unknown) 10/10/22 @ 21:45 by Linh Mcginnis CNM, STEVE) (unknown) (no (unknown) (unknown) Type(s) of (units (unk nown) date) exercise: walking unknown) (unknown) (no (unknown) (unknown) UA negative. (units (u nknown) date) unknown) (unknown) (no (unknown) (unknown) UA (units (unkno wn) date) unknown) (unknown) (no (unknown) (unknown) Variability: (units (u nknown) date) Moderate (11-25) unknown) (unknown) (no (unknown) (unknown) Visit (units (unkno wn) date) Information unknown) (unknown) (no (unknown) (unknown) Vital Signs (units (un known) date) unknown) (unknown) (no (unknown) (unknown) Vital Signs: (units (u nknown) date) unknown) (unknown) (no (unknown) (unknown) alcohol intake: (units (unknown) date) never unknown) (unknown) (no (unknown) (unknown) caffeine: Yes (units ( unknown) date) (occasionally, unknown) aware of 200mg limit) (unknown) (no (unknown) (unknown) carbon monox (units (u nknown) date) detector in home: unknown) Yes (unknown) (no (unknown) (unknown) current (units (unkno [...] (unknown) date) year weight has: unknown) other (bfammlrypo-33-35 lb) (unknown) (no (unknown) (unknown) education level: (units (unknown) date) high school unknown) (unknown) (no (unknown) (unknown) fire (units (unkno wn) date) 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 unknown) home: Yes (unknown) (no (unknown) (unknown) firearms in (units (un known) date) home: Yes unknown) firearms unloaded and locked: Yes (unknown) (no (unknown) (unknown) household (units (unkn own) date) members: spouse unknown) (unknown) (no (unknown) (unknown) housing: (units (unkno wn) date) apartment unknown) (unknown) (no (unknown) (unknown) irregular (units (unkn own) date) contractions, SVE unknown) not done (unknown) (no (unknown) (unknown) lives (units (unkno wn) date) independently: unknown) Yes (unknown) (no (unknown) (unknown) marital status: (units (unknown) date) unknown) (unknown) (no (unknown) (unknown) negative Ffn (units (u nknown) date) unknown) (unknown) (no (unknown) (unknown) number of (units (unkn own) date) children: 0 unknown) (unknown) (no (unknown) (unknown) occupational (units (u nknown) date) status: unknown) unemployed (unknown) (no (unknown) (unknown) pets and (units (unkno wn) date) animals: Yes (1 unknown) dog 1 cat; aware of toxo) (unknown) (no (unknown) (unknown) (units (unkn own) date) ultrasound for unknown) cervical length: (unknown) (no (unknown) (unknown) seatbelt use: (units ( unknown) date) always unknown) (unknown) (no (unknown) (unknown) second hand (units (un known) date) exposure: Yes unknown) (while visiting family (mom smokes)) (unknown) (no (unknown) (unknown) special mirella (units ( unknown) date) needs: No unknown) (unknown) (no (unknown) (unknown) substance use (units ( unknown) date) type: marijuana unknown) (quit when she learned she was ) (unknown) (no (unknown) (unknown) travel history: (units (unknown) date) recent (domestic unknown) only) (unknown) (no (unknown) (unknown) ultrasound (units (unk nown) date) unknown) (unknown) (no (unknown) (unknown) water heater (units (u nknown) date) temp set < 120 unknown) deg: No (Will call landlord to adjust ) (unknown) (no (unknown) (unknown) well-balanced (units ( unknown) date) diet: daily or unknown) most days (unknown) (no (unknown) (unknown) working smoke (units ( unknown) date) detector in home: unknown) Yes Result panel [id number] (unknown) (no (unknown) (unknown) (no value) (units (unk nown) date) unknown) (unknown) (no (unknown) (unknown) (+14 lb) 98/66 N (units (unknown) date) unknown) (unknown) (no (unknown) (unknown) (+6 lb) 104/68 N (units (unknown) date) unknown) (unknown) (no (unknown) (unknown) (-2 lb) 108/60 N (units (unknown) date) unknown) (unknown) (no (unknown) (unknown) (-4 lb) 100/70 N (units (unknown) date) unknown) (unknown) (no (unknown) (unknown) Genetic (units (unkn own) date) Screening/Teratol unknown) ogy Counseling - Includes patient, baby's father, or (unknown) (no (unknown) (unknown) -?-?-?-?-?-?-?-? (units (unknown) date) -?-?-?-? unknown) (unknown) (no (unknown) (unknown) 09/28/22 (units (unkno wn) date) unknown) (unknown) (no (unknown) (unknown) 10/19/22 (units (unkno wn) date) unknown) (unknown) (no (unknown) (unknown) 10/26/21 6 (units (unk nown) date) spontaneous unknown) (unknown) (no (unknown) (unknown) 10/27/20 5 (units (unk nown) date) spontaneous unknown) (unknown) (no (unknown) (unknown) [id number] (units (unkno wn) date) unknown) (unknown) (no (unknown) (unknown) 01/26/22 5 (units (unk nown) date) spontaneous unknown) (unknown) (no (unknown) (unknown) 09:14 (units (unkno wn) date) unknown) (unknown) (no (unknown) (unknown) 06/09/22 (units (unkno wn) date) unknown) (unknown) (no (unknown) (unknown) 06/29/20 5 (units (unk nown) date) spontaneous unknown) (unknown) (no (unknown) (unknown) 07/07/22 (units (unkno wn) date) unknown) (unknown) (no (unknown) (unknown) 11w 5d 123 lb (units ( unknown) date) unknown) (unknown) (no (unknown) (unknown) 08/11/22 (units (unkno wn) date) unknown) (unknown) (no (unknown) (unknown) 15w 5d 121 lb (units ( unknown) date) unknown) (unknown) (no (unknown) (unknown) 21 yo here (units (unknown) date) for IOB visit unknown) @11wk5d. An 8 week US was c/w LMP-TIFFANIE. H/o (unknown) (no (unknown) (unknown) 20w 5d 131 lb (units ( unknown) date) unknown) (unknown) (no (unknown) (unknown) 27w 4d 139 lb (units ( unknown) date) unknown) (unknown) (no (unknown) (unknown) @ 12wks--did not (units (unknown) date) start yet @ 20 unknown) weeks, was going to re-start (unknown) (no (unknown) (unknown) ADHD (units (unkno wn) date) unknown) (unknown) (no (unknown) (unknown) Abnormal lab (units (u nknown) date) values 1st unknown) trimester: discussed (unknown) (no (unknown) (unknown) Acne (units (unkno wn) date) unknown) (unknown) (no (unknown) (unknown) Add'l Plan (units (unk nown) date) Details unknown) (unknown) (no (unknown) (unknown) Age/Sex: 22 / F (units (unknown) date) Date of Service: unknown) (unknown) (no (unknown) (unknown) Allergies (units (unkn own) date) unknown) (unknown) (no (unknown) (unknown) [place], [place] (units ( unknown) date) [id number] unknown) (unknown) (no (unknown) (unknown) Anemia (-2020) (units (unknown) date) unknown) (unknown) (no (unknown) (unknown) Anesthesia (units (unk nown) date) unknown) (unknown) (no (unknown) (unknown) Aneuploidy (units [...] (unknown) Attending Dr: (units ( unknown) date) Chaka Flores unknown) (unknown) (no (unknown) (unknown) Autism (units (unkno wn) date) unknown) (unknown) (no (unknown) (unknown) B6. On review of (units (unknown) date) options she unknown) desires Zojennifer, Rx sent. History of severe (unknown) (no (unknown) (unknown) BMI 24.7 (units (unkno wn) date) unknown) (unknown) (no (unknown) (unknown) BP 98/62 (units (unkno wn) date) unknown) (unknown) (no (unknown) (unknown) Bipolar disorder (units (unknown) date) unknown) (unknown) (no (unknown) (unknown) (units (unkno wn) date) Plan/Preferences unknown) (unknown) (no (unknown) (unknown) Planning (units (unknown) date) unknown) (unknown) (no (unknown) (unknown) Blood Pressure (units (unknown) date) Location Rt unknown) brachial (unknown) (no (unknown) (unknown) Blood (units (unkno wn) date) transfusions?: unknown) yes (Never had but would accept) (unknown) (no (unknown) (unknown) Breastfeed Preg (units (unknown) date) Comp Name unknown) (unknown) (no (unknown) (unknown) Brother Anxiety (units (unknown) date) unknown) (unknown) (no (unknown) (unknown) Caffeine use, (units ( unknown) date) Exercise and unknown) activity, work/environmenta l/hazards, Sexual (unknown) (no (unknown) (unknown) [place] with (units (unknown) date) her grandfather. unknown) Appears grandfather's no longer here with her (unknown) (no (unknown) (unknown) Cancer (units (unkno wn) date) unknown) (unknown) (no (unknown) (unknown) Childbirth (units (unk nown) date) Classes: unknown) discussed (unknown) (no (unknown) (unknown) [facility]. (units (unknown) date) 20 week US normal unknown) (unknown) (no (unknown) (unknown) Current Estimate (units (unknown) date) 12/24/22 LMP unknown) (Certain) 30w 4d (unknown) (no (unknown) (unknown) Current (units (unkno wn) date) History unknown) (unknown) (no (unknown) (unknown) : 2000 (units (unknown) date) Acct:[id number] unknown) (unknown) (no (unknown) (unknown) Date of positive (units (unknown) date) home unknown) test: 04/10/22 (unknown) (no (unknown) (unknown) Date (units (unkno wn) date) unknown) (unknown) (no (unknown) (unknown) Del. Date (units (unkn own) date) GA/Weeks Labor unknown) Lgth Wt Sex Route Outcome Anesthesia Place (unknown) (no (unknown) (unknown) Delv (units (unkno wn) date) unknown) (unknown) (no (unknown) (unknown) Depression / (units (u nknown) date) anxiety is worse unknown) now, she does desire to restart medication. Rx (unknown) (no (unknown) (unknown) Depression (units (unk nown) date) unknown) (unknown) (no (unknown) (unknown) Depression: (units (un known) date) discussed unknown) (unknown) (no (unknown) (unknown) Dept at (units (unkno wn) date) . unknown) (unknown) (no (unknown) (unknown) Piper is here (units (unknown) date) for a FRED visit @ unknown) 15wk5d. She is accompanied by her (unknown) (no (unknown) (unknown) Piper presents (units (unknown) date) for an are OB unknown) visit at 20 weeks 5 days. [place], (unknown) (no (unknown) (unknown) Piper returns (units (unknown) date) today for her FRED unknown) visit now at 27+ 4 weeks gestational (unknown) (no (unknown) (unknown) Diabetes (units (unkno wn) date) mellitus unknown) (unknown) (no (unknown) (unknown) Diet and (units (unkno wn) date) Exercise unknown) (unknown) (no (unknown) (unknown) Documented By: (units (unknown) date) Chaka Flores unknownBlanca BEE 10/19/22 0913 (unknown) (no (unknown) (unknown) Draft (units (unkno wn) date) unknown) (unknown) (no (unknown) (unknown) TIFFANIE Calculator (units (unknown) date) unknown) (unknown) (no (unknown) (unknown) EGA Weight BP (units ( unknown) date) UGlucose unknown) (unknown) (no (unknown) (unknown) Estimated (units (unkn own) date) Delivery Date unknown) Method Current (unknown) (no (unknown) (unknown) Family History (units (unknown) date) (Reviewed unknown) 10/10/22 @ 21:45 by Linh Mcginnis CNM, INDUSTRIAL SEAMSTRESS) (unknown) (no (unknown) (unknown) Father Diabetes (units (unknown) date) mellitus unknown) (unknown) (no (unknown) (unknown) Father of Baby: (units (unknown) date) same unknown) (unknown) (no (unknown) (unknown) [facility]) (unknown) (no (unknown) (unknown) First Trimester (units (unknown) date) Education unknown) Checklist (unknown) (no (unknown) (unknown) (all-5 week (units (unknown) date) SABs) unknown) (unknown) (no (unknown) (unknown) Genetic (units (unkno [...] practice discussed, personnel (unknown) (no (unknown) (unknown) Height 5 ft 3 in (units (unknown) date) unknown) (unknown) (no (unknown) (unknown) Hepatitis C risk (units (unknown) date) evaluation: low unknown) risk (unknown) (no (unknown) (unknown) History of (units (unk nown) date) Hepatitis B: No unknown) (unknown) (no (unknown) (unknown) History of (units (unk nown) date) Hepatitis C: No unknown) 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 (unknown) (no (unknown) (unknown) History of (units (unk nown) date) removal of skin unknown) mole (unknown) (no (unknown) (unknown) Hospital: (units (u nknown) date) unknown) (unknown) (no (unknown) (unknown) [place], (units (unknown) date) deployed unknown) (unknown) (no (unknown) (unknown) Hx # (units (u nknown) date) Pregnancies 0 unknown) Elective abortions 0 (unknown) (no (unknown) (unknown) Hx # Term (units (unkn own) date) Pregnancies 0 unknown) Ectopic pregnancies 0 (unknown) (no (unknown) (unknown) Hyperlipidemia (units (unknown) date) unknown) (unknown) (no (unknown) (unknown) Hypertension (units (u nknown) date) unknown) (unknown) (no (unknown) (unknown) will be (units (unknown) date) adopted?: no [...] Staff unknown) (unknown) (no (unknown) (unknown) Intake Note: (units (u nknown) date) unknown) (unknown) (no (unknown) (unknown) Intake performed (units (unknown) date) by: Michele Saha unknown) (unknown) (no (unknown) (unknown) Intake (units (unkno wn) date) unknown) (unknown) (no (unknown) (unknown) LMP-TIFFANIE (units (unkno wn) date) unknown) (unknown) (no [...] (unknown) (unknown) Medical History (units (unknown) date) (Reviewed unknown) 10/10/22 @ 21:45 by Linh Mcginnis, TAB, INDUSTRIAL SEAMSTRESS) (unknown) (no (unknown) (unknown) Mental health (units ( unknown) date) problem unknown) (unknown) (no (unknown) (unknown) Mother (units (unkno wn) date) Gestational unknown) diabetes (unknown) (no (unknown) (unknown) N Yes no 144 20 (units (unknown) date) absent 4wk unknown) (unknown) (no (unknown) (unknown) No Known Drug (units ( unknown) date) Allergies Allergy unknown) (Verified 08/11/22 12:00) (unknown) (no (unknown) (unknown) Notes (units (unkno wn) date) unknown) (unknown) (no (unknown) (unknown) Number of Living (units (unknown) date) Children 0 unknown) (unknown) (no (unknown) (unknown) Number of (units (unkn own) date) fetuses:: Single unknown) (unknown) (no (unknown) (unknown) Nutrition and (units ( unknown) date) weight gain unknown) counseling: special diet: discussed (unknown) (no (unknown) (unknown) OB Office Visit (units (unknown) date) unknown) (unknown) (no (unknown) (unknown) OB Visit Log (units (u nknown) date) unknown) (unknown) (no (unknown) (unknown) On control (units (unknown) date) at conception?: unknown) No (unknown) (no (unknown) (unknown) Other Estimates (units (unknown) date) 12/22/22 unknown) Ultrasound #1 30w 6d (unknown) (no (unknown) (unknown) Ovarian cyst (units (u nknown) date) () unknown) (unknown) (no (unknown) (unknown) PFSH (units (unkno wn) date) unknown) (unknown) (no (unknown) (unknown) PID (acute (units (unk nown) date) pelvic unknown) inflammatory disease) (unknown) (no (unknown) (unknown) PTSD (units (unkno wn) date) (post-traumatic unknown) stress disorder) () (unknown) (no (unknown) (unknown) Para 0 (units [...] (unknown) (unknown) Patient: (units (unkno wn) date) Blane,Piper N unknown) MR#: [id number] (unknown) (no (unknown) (unknown) 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: (units ( unknown) date) [facility] unknown) (unknown) (no (unknown) (unknown) Personal history (units (unknown) date) of STD: other unknown) (PID (unknown bacterial agent) in 12/2021) (unknown) (no (unknown) (unknown) Personal history (units (unknown) date) of genital unknown) herpes: No (unknown) (no (unknown) (unknown) Position Sitting (units (unknown) date) unknown) (unknown) (no (unknown) (unknown) (units (unkn own) date) History unknown) (unknown) (no (unknown) (unknown) type:: (units (unknown) date) First unknown) (unknown) (no (unknown) (unknown) (units (unkno wn) date) Education unknown) (unknown) (no (unknown) (unknown) Initial (units (unknown) date) Assessment unknown) (unknown) (no (unknown) (unknown) (units (unkno wn) date) Specific unknown) Issues/Plans (unknown) (no (unknown) (unknown) (units (unkno wn) date) Testing: unknown) discussed (unknown) (no (unknown) (unknown) Visit (units (unknown) date) unknown) (unknown) (no (unknown) (unknown) (units (unkno wn) date) education packet: unknown) Child education/plan, symptoms, (unknown) (no (unknown) (unknown) Primary Care (units (u nknown) date) Provider: CHAR Puentes unknown) [place] (unknown) (no (unknown) (unknown) Primary Ob (units (unk nown) date) Provider: unknown) Tyesha Brito (unknown) (no (unknown) (unknown) Prior (units (unkno wn) date) GBS-Infected unknown) child: No (unknown) (no (unknown) (unknown) Prostate cancer (units (unknown) date) unknown) (unknown) (no (unknown) (unknown) Providers (units (unkn own) date) unknown) (unknown) (no (unknown) (unknown) Pt here for OB (units (unknown) date) Check unknown) (unknown) (no (unknown) (unknown) Rash or viral (units ( unknown) date) illness since unknown) last menstrual period: No (unknown) (no (unknown) (unknown) Reason For Visit (units (unknown) date) unknown) (unknown) (no (unknown) (unknown) Recent travel (units ( unknown) date) outside of unknown) country?: No (unknown) (no (unknown) (unknown) Recurrent UTI (units ( unknown) date) () unknown) (unknown) (no (unknown) (unknown) Recurrent (units [...] siblings w/ autism) (unknown) (no (unknown) (unknown) Rh positive, (units (u nknown) date) will check unknown) results today, RhoGAM as needed. (unknown) (no (unknown) (unknown) Sabs x4 @5-6 (units (u nknown) date) weeks. She passed unknown) a small clot a week ago, then had BRB yesterday (unknown) (no (unknown) (unknown) Safety (units (unkno wn) date) unknown) (unknown) (no (unknown) (unknown) Schizophrenia (units ( unknown) date) unknown) (unknown) (no (unknown) (unknown) Seizures (-2002) (units (unknown) date) unknown) (unknown) (no (unknown) [...] (unknown) (unknown) Surgical History (units (unknown) date) (Reviewed unknown) 10/10/22 @ 21:45 by Linh Mcginnis, TAB, STEVE) (unknown) (no (unknown) (unknown) Surrogate (units (unkn own) date) ?: no unknown) (unknown) (no (unknown) (unknown) Symptoms since (units (unknown) date) LMP: Reports unknown) amenorrhea, nausea, vomiting, fatigue, breast (unknown) (no (unknown) (unknown) TR No no 138 16 (units (unknown) date) absent 4wk unknown) (unknown) (no (unknown) (unknown) TR No no 162 12 (units (unknown) date) absent 4wk unknown) (unknown) (no (unknown) (unknown) TR Yes no 142 28 (units (unknown) date) absent 3 wks unknown) (unknown) (no (unknown) (unknown) Teratogen (units (unkn [...] (unknown) date) unknown) (unknown) (no (unknown) (unknown) Trimester:: 3rd (units (unknown) date) Trimester unknown) (28wks-Del) (unknown) (no (unknown) (unknown) Type(s) of (units (unk nown) date) exercise: walking unknown) (unknown) (no (unknown) (unknown) UProtein Movement (units (unknown) date) PreLabor FHR Fndl unknown) Ht Pres Edema Cerv Exam US/Comment Next Appt (unknown) (no (unknown) (unknown) Ultrasound (units (unk nown) date) Details:: 05/17/22 unknown) US @ [facility]: SIUP, CRL c/w 8wk5d, US-TIFFANIE 12/22/22, c/w (unknown) (no (unknown) (unknown) Ultrasound (units (unk nown) date) unknown) (unknown) (no (unknown) (unknown) Varicella/chicke (units (unknown) date) n pox status: unknown) immunized (unknown) (no (unknown) (unknown) Visit Date: (units (un known) date) 09/28/22 Last unknown) Updated by: Chaka Flores MD (unknown) (no (unknown) (unknown) Visit Date: (units (un known) date) 06/09/22 Last unknown) Updated by: Tyesha Brito MD (unknown) (no (unknown) (unknown) Visit Date: (units (un known) date) 07/07/22 Last unknown) Updated by: Tyesha Brito MD (unknown) (no (unknown) (unknown) Visit Date: (units (un known) date) 08/11/22 Last unknown) Updated by: Tyesha Brito MD (unknown) (no (unknown) (unknown) Visit Reasons: (units (unknown) date) OB unknown) (unknown) (no (unknown) (unknown) Vitals (units (unkno wn) date) unknown) (unknown) (no (unknown) (unknown) Vitamins and (units (u nknown) date) iron, Diet and unknown) weight gain, Fish and mercury intake, Smoking, (unknown) (no (unknown) (unknown) WG (units (unkno wn) date) unknown) (unknown) (no (unknown) (unknown) Weeks (units (unkno wn) date) gestation:: 30 unknown) (unknown) (no (unknown) (unknown) Weight 140 lb (units ( unknown) date) unknown) (unknown) (no (unknown) (unknown) Zika virus (units (unk nown) date) exposure: No unknown) (unknown) (no (unknown) (unknown) a lot of nausea (units (unknown) date) with emesis, may unknown) last whole day. No improvement with Unisom / (unknown) (no (unknown) (unknown) activity, X-ray (units (unknown) date) exposure, unknown) Medication use, Sauna/hot tub use, Dental care, (unknown) (no (unknown) (unknown) administer (units (unk nown) date) currently for unknown) about 30 minutes. She states she will try to get (unknown) (no (unknown) (unknown) advised her that (units (unknown) date) she should return unknown) if she felt regular contractions. She (unknown) (no (unknown) (unknown) age. She was (units (u nknown) date) seen on the unknown) center last night with possible leakage of fluid (unknown) (no (unknown) (unknown) alcohol intake: (units (unknown) date) never unknown) (unknown) (no (unknown) (unknown) amh (units (unkno wn) date) unknown) (unknown) (no (unknown) (unknown) anyone in either (units (unknown) date) family with: unknown) (unknown) (no (unknown) (unknown) bleeding in 1st (units (unknown) date) trimester, unknown) resolved. Reported retroplacental bleed on US @ (unknown) (no (unknown) (unknown) blood, abnormal (units (unknown) date) vaginal discharge unknown) or leakage of fluid. She is feeling routine (unknown) (no (unknown) (unknown) but AmniSure was (units (unknown) date) negative and unknown) evaluation showed no issues of concern. Review of (unknown) (no (unknown) (unknown) caffeine: Yes (units ( unknown) date) (occasionally, unknown) aware of 200mg limit) (unknown) (no (unknown) (unknown) carbon monox (units (u nknown) date) detector in home: unknown) Yes (unknown) (no (unknown) (unknown) cfDNA low risk, (units (unknown) date) girl, MSAFP unknown) normal (unknown) (no (unknown) (unknown) current (units (unkno wn) date) occupational unknown) exposures/hazards : No (unknown) (no (unknown) (unknown) current plan. 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 She reports some increased (unknown) (no (unknown) (unknown) depression, (units (un known) date) anxiety with h/o unknown) suicide attempt 12/2021 restarted meds, Sertraline (unknown) (no (unknown) (unknown) depression, but (units (unknown) date) was trying to unknown) hold off on starting the sertraline since she (unknown) (no (unknown) (unknown) depression. (units (un known) date) Reports she unknown) currently has some suicidal thoughts but without any (unknown) (no (unknown) (unknown) described, visit (units (unknown) date) schedule unknown) reviewed, ultrasounds policy reviewed, coverage 24 (unknown) (no (unknown) (unknown) directed her to (units (unknown) date) go to ED. She unknown) reports that low-grade uterine activity, (unknown) (no (unknown) (unknown) discussed, (units (unk nown) date) tuberculosis unknown) exposure discussed, CMV discussed, Toxoplasmosis (unknown) (no (unknown) (unknown) do a Glucola (units (u nknown) date) between 26-28 unknown) weeks and we could send lab slip. Also if no care, (unknown) (no (unknown) (unknown) do you feel safe (units (unknown) date) at home: Yes unknown) (unknown) (no (unknown) (unknown) done at [facility] (units (unknown) date) health showed unknown) normal anatomy, placenta and normal cervical (unknown) (no (unknown) (unknown) duration: 15-30 (units (unknown) date) minutes/day unknown) (unknown) (no (unknown) (unknown) during the past (units (unknown) date) year weight has: unknown) other ([id number] lb) (unknown) (no (unknown) (unknown) education level: (units (unknown) date) high school unknown) (unknown) (no (unknown) (unknown) feeling (units ( unknown) date) movement yet. Her unknown) cell free DNA was low risk, girl. Remainder of (unknown) (no (unknown) (unknown) movement. (units (unknown) date) Her MSAFP was unknown) normal. Her 20 week anatomy ultrasound, (unknown) (no (unknown) (unknown) fire (units (unkno wn) date) 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 unknown) home: Yes (unknown) (no (unknown) (unknown) firearms in (units (un known) date) home: Yes unknown) firearms unloaded and locked: Yes (unknown) (no (unknown) (unknown) grandfather (units (un known) date) today who came unknown) from [place] to stay with her through (unknown) (no (unknown) (unknown) have occurred. 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 (units ( unknown) date) Sees a Counselor. unknown) She had used both sertraline and Lexapro in (unknown) (no (unknown) (unknown) hours a day and (units (unknown) date) participation of unknown) father in care and office visits (unknown) (no (unknown) (unknown) household (units (unkn own) date) members: spouse unknown) (unknown) (no (unknown) (unknown) housing: (units (unkno wn) date) apartment unknown) (unknown) (no (unknown) (unknown) in a few weeks. (units (unknown) date) Advised her to unknown) continue with pelvic rest for now . She reports (unknown) (no (unknown) (unknown) in the area. (units (u nknown) date) Discussed trying unknown) to establish with care in [place] (unknown) (no (unknown) (unknown) irritability was (units (unknown) date) seen on the unknown) monitor but her cervix was not dilated. They (unknown) (no (unknown) (unknown) is going to lab (units (unknown) date) again today, will unknown) also try to draw her MSAFP today (our lab (unknown) (no (unknown) (unknown) jw (units (unkno wn) date) unknown) (unknown) (no (unknown) (unknown) knows moods can (units (unknown) date) worsen during unknown) . She was considering starting now (unknown) (no (unknown) (unknown) length, 3.6 cm. (units (unknown) date) She reports that unknown) she will be out of town until approximately 31 (unknown) (no (unknown) (unknown) like start of (units ( unknown) date) menses, stopped unknown) now. Seen in ED in [place] yesterday, (unknown) (no (unknown) (unknown) lives (units (unkno [...] recognition software. Please (unknown) (no (unknown) (unknown) of depression in (units (unknown) date) the past, unknown) re-initiation would be sensible at this point the (unknown) (no (unknown) (unknown) otherwise. No (units ( unknown) date) cramping, unknown) bleeding, LOF or abnormal vaginal discharge. Not (unknown) (no (unknown) (unknown) pain. Has had a (units (unknown) date) stabbing pain unknown) about every 10 minutes, when ambulating, no pain (unknown) (no (unknown) (unknown) pets and (units (unkno wn) date) animals: Yes (1 unknown) dog 1 cat; aware of toxo) (unknown) (no (unknown) (unknown) placenta. She is (units (unknown) date) understandably unknown) very nervous. Ultrasound today shows viable 11 (unknown) (no (unknown) (unknown) precautions, (units (u nknown) date) Listeriosis unknown) prevention and Rubella Immunization (unknown) (no (unknown) (unknown) will (units (unknown) date) still proceed unknown) normally, with retroplacental blood resolving Will (unknown) (no (unknown) (unknown) . Her (units (unknown) date) baby remains unknown) active but she denies contractions, bleeding, or (unknown) (no (unknown) (unknown) labs (units ( unknown) date) were not drawn as unknown) they could not get enough blood with small (unknown) (no (unknown) (unknown) read the note (units ( unknown) date) carefully and unknown) recognize, using context, where these substitutions (unknown) (no (unknown) (unknown) reassured that (units ( unknown) date) there was no unknown) significant risk to the infant and given her history (unknown) (no (unknown) (unknown) reports she has (units (unknown) date) not had any unknown) persistent cramping since. Denies spotting of (unknown) (no (unknown) (unknown) reports (units (unkno wn) date) ultrasound showed unknown) baby with heartbeat, and blood seen behind the (unknown) (no (unknown) (unknown) screen if (units (unkn own) date) covered. For cell unknown) free DNA with labs today. Believe she is (unknown) (no (unknown) (unknown) screen) (units (unkno wn) date) unknown) (unknown) (no (unknown) (unknown) seatbelt use: (units ( unknown) date) always unknown) (unknown) (no (unknown) (unknown) second hand (units (un known) date) exposure: Yes unknown) (while visiting family (mom smokes)) (unknown) (no (unknown) (unknown) send for the 11 (units (unknown) date) wk US; if areas unknown) seen was large, then will repeat the ultrasound (unknown) (no (unknown) (unknown) sertraline. (units (un known) date) Desires unknown) aneuploidy/ NTD screening, desires cell free DNA assay (unknown) (no (unknown) (unknown) significant (units (un known) date) change in vaginal unknown) discharge. 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 She unknown) reports what sounds like left round ligament (unknown) (no (unknown) (unknown) software. (units (unkn own) date) Although every unknown) effort is made to edit content, regulatory technician errors (unknown) (no (unknown) (unknown) special mirella (units ( unknown) date) needs: No unknown) (unknown) (no (unknown) (unknown) started (units (unkno wn) date) sertraline but unknown) intends to do so in the next couple of days. Patient (unknown) (no (unknown) (unknown) substance use (units ( unknown) date) type: marijuana unknown) (quit when she learned she was ) (unknown) (no (unknown) (unknown) tenderness, (units (un known) date) urinary unknown) frequency, irritability, bloating and other (heartburn) (unknown) (no (unknown) (unknown) the past with (units ( unknown) date) both helping. unknown) Most recently on Lexapro which she stopped about 2 (unknown) (no (unknown) (unknown) though before (units ( unknown) date) traveling. I unknown) encouraged her to start the sertraline now. About 2 (unknown) (no (unknown) (unknown) though she is (units ( unknown) date) traveling unknown) shortly. Otherwise to try to find a lab where she can (unknown) (no (unknown) (unknown) through (units (unkno wn) date) pharmacy. unknown) (unknown) (no (unknown) (unknown) to buy one. (units (un known) date) Discussed flu unknown) vaccination, she desires but we had no one to (unknown) (no (unknown) (unknown) to get her blood (units (unknown) date) pressure checked unknown) in about a month if anyone has a BP cuff, or (unknown) (no (unknown) (unknown) travel history: (units (unknown) date) recent (domestic unknown) only) (unknown) (no (unknown) (unknown) ultrasound for (units (unknown) date) 20 weeks. unknown) (unknown) (no (unknown) (unknown) usually does at (units (unknown) date) 16 weeks onward, unknown) so she is a day early). Schedule anatomy (unknown) (no (unknown) (unknown) veins. She (units (unk nown) date) reports 2 unknown) additional attempts at blood draws without success. She (unknown) (no (unknown) (unknown) water heater (units (u nknown) date) temp set < 120 unknown) deg: No (Will call landlord to adjust ) (unknown) (no (unknown) (unknown) week (units (unknown) date) ,? area of unknown) retroplacental blood. I reassured her that commonly (unknown) (no (unknown) (unknown) weeks ago she (units ( unknown) date) called with unknown) persistent bad cramping when in [place] and I (unknown) (no (unknown) (unknown) weeks prior to (units (unknown) date) positive unknown) test, having a feeling she may be . (unknown) (no (unknown) (unknown) weeks, in (units (unkn own) date) [place] with unknown) in loss for about 6 weeks, then 1.5-2 weeks in (unknown) (no (unknown) (unknown) well-balanced (units ( unknown) date) diet: daily or unknown) most days (unknown) (no (unknown) (unknown) will be drawn (units ( unknown) date) today along with unknown) her 1 hour GDM screen H+H. Patient has not yet (unknown) (no (unknown) (unknown) will be in 3 (units (u nknown) date) weeks or as unknown) needed. (unknown) (no (unknown) (unknown) working smoke (units ( unknown) date) detector in home: unknown) Yes Result panel [id number] (unknown) (no (unknown) (unknown) (no value) (units (unk nown) date) unknown) (unknown) (no (unknown) (unknown) (+14 lb) 98/66 N (units (unknown) date) unknown) (unknown) (no (unknown) (unknown) (+15 lb) 98/62 N (units (unknown) date) unknown) (unknown) (no (unknown) (unknown) (+6 lb) 104/68 N (units (unknown) date) unknown) (unknown) (no (unknown) (unknown) (-2 lb) 108/60 N (units (unknown) date) unknown) (unknown) (no (unknown) (unknown) (-4 lb) 100/70 N (units (unknown) date) unknown) (unknown) (no (unknown) (unknown) Genetic (units (unkn own) date) Screening/Teratol unknown) ogy Counseling - Includes patient, baby's father, or (unknown) (no (unknown) (unknown) -?-?-?-?-?-?-?-? (units (unknown) date) -?-?-?-? unknown) (unknown) (no (unknown) (unknown) 09/28/22 (units (unkno wn) date) unknown) (unknown) (no (unknown) (unknown) 10/19/22 (units (unkno wn) date) unknown) (unknown) (no (unknown) (unknown) 10/26/21 6 (units (unk nown) date) spontaneous unknown) (unknown) (no (unknown) (unknown) 10/27/20 5 (units (unk nown) date) spontaneous unknown) (unknown) (no (unknown) (unknown) [id number] (units (unkno wn) date) unknown) (unknown) (no (unknown) (unknown) 01/26/22 5 (units (unk nown) date) spontaneous unknown) (unknown) (no (unknown) (unknown) 09:14 (units (unkno wn) date) unknown) (unknown) (no (unknown) (unknown) 06/09/22 (units (unkno wn) date) unknown) (unknown) (no (unknown) (unknown) 06/29/20 5 (units (unk nown) date) spontaneous unknown) (unknown) (no (unknown) (unknown) 07/07/22 (units (unkno wn) date) unknown) (unknown) (no (unknown) (unknown) 11w 5d 123 lb (units ( unknown) date) unknown) (unknown) (no (unknown) (unknown) 08/11/22 (units (unkno wn) date) unknown) (unknown) (no (unknown) (unknown) 15w 5d 121 lb (units ( unknown) date) unknown) (unknown) (no (unknown) (unknown) 21 yo here (units (unknown) date) for IOB visit unknown) @11wk5d. An 8 week US was c/w LMP-TIFFANIE. H/o (unknown) (no (unknown) (unknown) 20w 5d 131 lb (units ( unknown) date) unknown) (unknown) (no (unknown) (unknown) 27w 4d 139 lb (units ( unknown) date) unknown) (unknown) (no (unknown) (unknown) 30w 4d 140 lb (units ( unknown) date) unknown) (unknown) (no (unknown) (unknown) @ 12wks--did not (units (unknown) date) start yet @ 20 unknown) weeks, was going to re-start (unknown) (no (unknown) (unknown) ADHD (units (unkno wn) date) unknown) (unknown) (no (unknown) (unknown) Abnormal lab (units (u nknown) date) values 1st unknown) trimester: discussed (unknown) (no (unknown) (unknown) Acne (units (unkno wn) date) unknown) (unknown) (no (unknown) (unknown) Add'l Plan (units (unk nown) date) Details unknown) (unknown) (no (unknown) (unknown) Age/Sex: 22 / F (units (unknown) date) Date of Service: unknown) (unknown) (no (unknown) (unknown) Allergies (units (unkn own) date) unknown) (unknown) (no (unknown) (unknown) [place] (units ( unknown) date) [id number] unknown) (unknown) (no (unknown) (unknown) Anemia (-2020) (units (unknown) date) unknown) (unknown) (no (unknown) (unknown) Anesthesia (units (unk nown) date) unknown) (unknown) (no (unknown) (unknown) Aneuploidy (units (unk nown) date) Screening unknown) Offered: Accepted (undecided, will probably get quad (unknown) (no (unknown) (unknown) Anticipate , (units (unknown) date) [facility] unknown) (unknown) (no (unknown) (unknown) Anticipated (units (un known) date) course of unknown) care: discussed (unknown) (no (unknown) (unknown) Anxiety (units (unkno wn) date) unknown) (unknown) (no (unknown) (unknown) Assessment and (units (unknown) date) Plan unknown) (unknown) (no (unknown) (unknown) Attending Dr: (units ( unknown) date) Chaka Flores unknown) (unknown) (no (unknown) (unknown) Autism (units (unkno wn) date) unknown) (unknown) (no (unknown) (unknown) B6. On review of (units (unknown) date) options she unknown) desires Zofran, Rx sent. History of severe (unknown) (no (unknown) (unknown) BMI 24.7 (units (unkno wn) date) unknown) (unknown) (no (unknown) (unknown) BP 98/62 (units (unkno wn) date) unknown) (unknown) (no (unknown) (unknown) Bipolar disorder (units (unknown) date) unknown) (unknown) (no (unknown) (unknown) (units (unkno wn) date) Plan/Preferences unknown) (unknown) (no (unknown) (unknown) Planning (units (unknown) date) unknown) (unknown) (no (unknown) (unknown) Blood Pressure (units (unknown) date) Location Rt unknown) brachial (unknown) (no (unknown) (unknown) Blood (units (unkno wn) date) transfusions?: unknown) yes (Never had but would accept) (unknown) (no (unknown) (unknown) Breastfeed Preg (units (unknown) date) Comp Name unknown) (unknown) (no (unknown) (unknown) Brother Anxiety (units (unknown) date) unknown) (unknown) (no (unknown) (unknown) Caffeine use, (units ( unknown) date) Exercise and unknown) activity, work/environmenta l/hazards, Sexual (unknown) (no (unknown) (unknown) [place] with (units (unknown) date) her grandfather. unknown) Appears grandfather's no longer here with her (unknown) (no (unknown) (unknown) Cancer (units (unkno wn) date) unknown) (unknown) (no (unknown) (unknown) Childbirth (units (unk nown) date) Classes: unknown) discussed (unknown) (no (unknown) (unknown) [place] ED. (units (unknown) date) 20 week US normal unknown) (unknown) (no (unknown) (unknown) Current Estimate (units (unknown) date) 12/24/22 LMP unknown) (Certain) 30w 4d (unknown) (no (unknown) (unknown) Current (units (unkno wn) date) History unknown) (unknown) (no (unknown) (unknown) : 2000 (units (unknown) date) Acct:[id number] unknown) (unknown) (no (unknown) (unknown) Date of positive (units (unknown) date) home unknown) test: 04/10/22 (unknown) (no (unknown) (unknown) Date (units (unkno wn) date) unknown) (unknown) (no (unknown) (unknown) Del. Date (units (unkn own) date) GA/Weeks Labor unknown) Lgth Wt Sex Route Outcome Anesthesia Place (unknown) (no (unknown) (unknown) Delv (units (unkno wn) date) unknown) (unknown) (no (unknown) (unknown) Depression / (units (u nknown) date) anxiety is worse unknown) now, she does desire to restart medication. Rx (unknown) (no (unknown) (unknown) Depression (units (unk nown) date) unknown) (unknown) (no (unknown) (unknown) Depression: (units (un known) date) discussed unknown) (unknown) (no (unknown) (unknown) Dept at (units (unkno wn) date) . unknown) (unknown) (no (unknown) (unknown) [facility] and (units (un known) date) [place] returns unknown) today for her FRED visit now 30+ 4 weeks (unknown) (no (unknown) (unknown) [facility] is here (units (unknown) date) for a FRED visit @ unknown) 15wk5d. She is accompanied by her (unknown) (no (unknown) (unknown) [facility] presents (units (unknown) date) for an are OB unknown) visit at 20 weeks 5 days. [place], (unknown) (no (unknown) (unknown) [facility] returns (units (unknown) date) today for her FRED unknown) visit now at 27+ 4 weeks gestational (unknown) (no (unknown) (unknown) Diabetes (units (unkno wn) date) mellitus unknown) (unknown) (no (unknown) (unknown) Diet and (units (unkno wn) date) Exercise unknown) (unknown) (no (unknown) (unknown) Documented By: (units (unknown) date) Chaka Flores unknown) 10/19/22 0913 (unknown) (no (unknown) (unknown) Draft (units (unkno wn) date) unknown) (unknown) (no (unknown) (unknown) TIFFANIE Calculator (units (unknown) date) unknown) (unknown) (no (unknown) (unknown) EGA Weight BP (units ( unknown) date) UGlucose unknown) (unknown) (no (unknown) (unknown) Estimated (units (unkn own) date) Delivery Date unknown) Method Current (unknown) (no (unknown) (unknown) Expected (units (unkno wn) date) Delivery unknown) Route/Plan (unknown) (no (unknown) (unknown) Family History (units (unknown) date) (Reviewed unknown) 10/10/22 @ 21:45 by Linh Mcginnis, TAB, INDUSTRIAL SEAMSTRESS) (unknown) (no (unknown) (unknown) Father Diabetes (units (unknown) date) mellitus unknown) (unknown) (no (unknown) (unknown) Father of Baby: (units (unknown) date) same unknown) (unknown) (no (unknown) (unknown) [facility] ([facility] unknown) (unknown) (no (unknown) (unknown) First Trimester (units (unknown) date) Education unknown) Checklist (unknown) (no (unknown) (unknown) (all-5 week (units (unknown) date) SABs) unknown) (unknown) (no (unknown) (unknown) Genetic (units (unkno [...] practice discussed, personnel (unknown) (no (unknown) (unknown) Height 5 ft 3 in (units (unknown) date) unknown) (unknown) (no (unknown) (unknown) Hepatitis C risk (units (unknown) date) evaluation: low unknown) risk (unknown) (no (unknown) (unknown) History of (units (unk nown) date) Hepatitis B: No unknown) (unknown) (no (unknown) (unknown) History of (units (unk nown) date) Hepatitis C: No unknown) 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 (unknown) (no (unknown) (unknown) History of (units (unk nown) date) removal of skin unknown) mole (unknown) (no (unknown) (unknown) [facility] ([facility] (u [facility]) [facility]) (unknown) (no (unknown) (unknown) [place], (units (unknown) date) deployed unknown) (unknown) (no (unknown) (unknown) Hx # (units (u nknown) date) Pregnancies 0 unknown) Elective abortions 0 (unknown) (no (unknown) (unknown) Hx # Term (units (unkn own) date) Pregnancies 0 unknown) Ectopic pregnancies 0 (unknown) (no (unknown) (unknown) Hyperlipidemia (units (unknown) date) unknown) (unknown) (no (unknown) (unknown) Hypertension (units (u nknown) date) unknown) (unknown) (no (unknown) (unknown) will be (units (unknown) date) adopted?: no [...] Staff unknown) (unknown) (no (unknown) (unknown) Intake Note: (units (u nknown) date) unknown) (unknown) (no (unknown) (unknown) Intake performed (units (unknown) date) by: Michele Saha unknown) (unknown) (no (unknown) (unknown) Intake (units (unkno wn) date) unknown) (unknown) (no (unknown) (unknown) LMP-TIFFANIE (units (unkno wn) date) unknown) (unknown) (no [...] (unknown) date) unknown) (unknown) (no (unknown) (unknown) May take up to 4 (units (unknown) date) doses. If unknown) contractions persist, contact provider. 10 mg PO (unknown) (no (unknown) (unknown) Medical History (units (unknown) date) (Reviewed unknown) 10/10/22 @ 21:45 by ZANA AragonM, INDUSTRIAL SEAMSTRESS) (unknown) (no (unknown) (unknown) Medications: (units (u nknown) date) unknown) (unknown) (no (unknown) (unknown) Mental health (units ( unknown) date) problem unknown) (unknown) (no (unknown) (unknown) Mother (units (unkno wn) date) Gestational unknown) diabetes (unknown) (no (unknown) (unknown) N Yes no 138 30 (units (unknown) date) Vertex absent 2 unknown) wks (unknown) (no (unknown) (unknown) N Yes no 144 20 (units (unknown) date) absent 4wk unknown) (unknown) (no (unknown) (unknown) New (units (unkno wn) date) unknown) (unknown) (no (unknown) (unknown) No Known Drug (units ( unknown) date) Allergies Allergy unknown) (Verified 08/11/22 12:00) (unknown) (no (unknown) (unknown) Notes (units (unkno wn) date) unknown) (unknown) (no (unknown) (unknown) Number of Living (units (unknown) date) Children 0 unknown) (unknown) (no (unknown) (unknown) Number of (units (unkn own) date) fetuses:: Single unknown) (unknown) (no (unknown) (unknown) Nutrition and (units ( unknown) date) weight gain unknown) counseling: special diet: discussed (unknown) (no (unknown) (unknown) OB Office Visit (units (unknown) date) unknown) (unknown) (no (unknown) (unknown) OB Visit Log (units (u nknown) date) unknown) (unknown) (no (unknown) (unknown) On control (units (unknown) date) at conception?: unknown) No (unknown) (no (unknown) (unknown) Orders (units (unkno wn) date) unknown) (unknown) (no (unknown) (unknown) Orders: (units (unkno wn) date) unknown) (unknown) (no (unknown) (unknown) Other Estimates (units (unknown) date) 12/22/22 unknown) Ultrasound #1 30w 6d (unknown) (no (unknown) (unknown) Ova and Parasite (units (unknown) date) Exam Today R19.7 unknown) - Diarrhea, unspecified (unknown) (no (unknown) (unknown) Ovarian cyst (units (u nknown) date) () unknown) (unknown) (no (unknown) (unknown) PFSH (units (unkno wn) date) unknown) (unknown) (no (unknown) (unknown) PID (acute (units (unk nown) date) pelvic unknown) inflammatory disease) (unknown) (no (unknown) (unknown) PTSD (units (unkno wn) date) (post-traumatic unknown) stress disorder) () (unknown) (no (unknown) (unknown) Para 0 (units [...] (unknown) (unknown) Patient: (units (unkno wn) date) [facility],[place] unknown) MR#: [id number] (unknown) (no (unknown) (unknown) 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: (units ( unknown) date) CHAR [place] unknown) (unknown) (no (unknown) (unknown) Personal history (units (unknown) date) of STD: other unknown) (PID (unknown bacterial agent) in 12/2021) (unknown) (no (unknown) (unknown) Personal history (units (unknown) date) of genital unknown) herpes: No (unknown) (no (unknown) (unknown) Position Sitting (units (unknown) date) unknown) (unknown) (no (unknown) (unknown) (units (unkn own) date) History unknown) (unknown) (no (unknown) (unknown) type:: (units (unknown) date) First unknown) (unknown) (no (unknown) (unknown) (units (unkno wn) date) Education unknown) (unknown) (no (unknown) (unknown) Initial (units (unknown) date) Assessment unknown) (unknown) (no (unknown) (unknown) (units (unkno wn) date) Specific unknown) Issues/Plans (unknown) (no (unknown) (unknown) (units (unkno wn) [...] own) date) unknown) (unknown) (no (unknown) (unknown) Pt here for OB (units (unknown) date) Check unknown) (unknown) (no (unknown) (unknown) Q20M PRN 30 caps (units (unknown) date) 2RF cramping unknown) (unknown) (no (unknown) (unknown) Rash or viral (units ( unknown) date) illness since unknown) last menstrual period: No (unknown) (no (unknown) (unknown) Reason For Visit (units (unknown) date) unknown) (unknown) (no (unknown) (unknown) Recent travel (units ( unknown) date) outside of unknown) country?: No (unknown) (no (unknown) (unknown) Recurrent UTI (units ( unknown) date) (-2019) unknown) (unknown) (no (unknown) (unknown) Recurrent (units [...] siblings w/ autism) (unknown) (no (unknown) (unknown) Rh positive, (units (u nknown) date) will check unknown) results today, RhoGAM as needed. (unknown) (no (unknown) (unknown) Sabs x4 @5-6 (units (u nknown) date) weeks. She passed unknown) a small clot a week ago, then had BRB yesterday (unknown) (no (unknown) (unknown) Safety (units (unkno wn) date) unknown) (unknown) (no (unknown) (unknown) Schizophrenia (units ( unknown) date) unknown) (unknown) (no (unknown) (unknown) Seizures (-2002) (units (unknown) date) unknown) (unknown) (no (unknown) [...] (unknown) date) unknown) (unknown) (no (unknown) (unknown) Stool Culture (units ( unknown) date) Today R19.7 - unknown) Diarrhea, unspecified (unknown) (no (unknown) (unknown) Support (units (unkno wn) date) Person(s):: unknown) [place] (unknown) (no (unknown) (unknown) Surgical History (units (unknown) date) (Reviewed unknown) 10/10/22 @ 21:45 by Linh Mcginnis, TAB, STEVE) (unknown) (no (unknown) (unknown) Surrogate (units (unkn own) date) ?: no unknown) (unknown) (no (unknown) (unknown) Symptoms since (units (unknown) date) LMP: Reports unknown) amenorrhea, nausea, vomiting, fatigue, breast (unknown) (no (unknown) (unknown) TR No no 138 16 (units (unknown) date) absent 4wk unknown) (unknown) (no (unknown) (unknown) TR No no 162 12 (units (unknown) date) absent 4wk unknown) (unknown) (no (unknown) (unknown) TR Yes no 142 28 (units (unknown) date) absent 3 wks unknown) (unknown) (no (unknown) (unknown) Teratogen (units (unkn [...] (unknown) date) unknown) (unknown) (no (unknown) (unknown) Trimester:: 3rd (units (unknown) date) Trimester unknown) (28wks-Del) (unknown) (no (unknown) (unknown) Type(s) of (units (unk nown) date) exercise: walking unknown) (unknown) (no (unknown) (unknown) UProtein Movement (units (unknown) date) PreLabor FHR Fndl unknown) Ht Pres Edema Cerv Exam US/Comment Next Appt (unknown) (no (unknown) (unknown) Ultrasound (units (unk nown) date) Details:: 05/17/22 unknown) [facility]: SI[facility], CRL c/w 8wk5d, US-TIFFANIE 12/22/22, c/w (unknown) (no (unknown) (unknown) Ultrasound (units (unk nown) date) unknown) (unknown) (no (unknown) (unknown) Varicella/chicke (units (unknown) date) n pox status: unknown) immunized (unknown) (no (unknown) (unknown) Visit Date: (units (un known) date) 09/28/22 Last unknown) Updated by: Chaka Flores MD (unknown) (no (unknown) (unknown) Visit Date: (units (un known) date) 10/19/22 Last unknown) Updated by: Chaka Flores MD (unknown) (no (unknown) (unknown) Visit Date: (units (un known) date) 06/09/22 Last unknown) Updated by: Tyesha Brito MD (unknown) (no (unknown) (unknown) Visit Date: (units (un known) date) 07/07/22 Last unknown) Updated by: Tyesha Brito MD (unknown) (no (unknown) (unknown) Visit Date: (units (un known) date) 08/11/22 Last unknown) Updated by: Tyesha Brito MD (unknown) (no (unknown) (unknown) Visit Reasons: (units (unknown) date) OB unknown) (unknown) (no (unknown) (unknown) Vitals (units (unkno wn) date) unknown) (unknown) (no (unknown) (unknown) Vitamins and (units (u nknown) date) iron, Diet and unknown) weight gain, Fish and mercury intake, Smoking, (unknown) (no (unknown) (unknown) WG (units (unkno wn) date) unknown) (unknown) (no (unknown) (unknown) Weeks (units (unkno wn) date) gestation:: 30 unknown) (unknown) (no (unknown) (unknown) Weight 140 lb (units ( unknown) date) unknown) (unknown) (no (unknown) (unknown) Zika virus (units (unk nown) date) exposure: No unknown) (unknown) (no (unknown) (unknown) a lot of nausea (units (unknown) date) with emesis, may unknown) last whole day. No improvement with Unisom / (unknown) (no (unknown) (unknown) activity, X-ray (units (unknown) date) exposure, unknown) Medication use, Sauna/hot tub use, Dental care, (unknown) (no (unknown) (unknown) administer (units (unk nown) date) currently for unknown) about 30 minutes. She states she will try to get (unknown) (no (unknown) (unknown) advised her that (units (unknown) date) she should return unknown) if she felt regular contractions. She (unknown) (no (unknown) (unknown) age. She was (units (u nknown) date) seen on the unknown) center last night with possible leakage of fluid (unknown) (no (unknown) (unknown) alcohol intake: (units (unknown) date) never unknown) (unknown) (no (unknown) (unknown) amh (units (unkno wn) date) unknown) (unknown) (no (unknown) (unknown) anyone in either (units (unknown) date) family with: unknown) (unknown) (no (unknown) (unknown) bleeding in 1st (units (unknown) date) trimester, unknown) resolved. Reported retroplacental bleed on US @ (unknown) (no (unknown) (unknown) blood, abnormal (units (unknown) date) vaginal discharge unknown) or leakage of fluid. She is feeling routine (unknown) (no (unknown) (unknown) but AmniSure was (units (unknown) date) negative and unknown) evaluation showed no issues of concern. Review of (unknown) (no (unknown) (unknown) caffeine: Yes (units ( unknown) date) (occasionally, unknown) aware of 200mg limit) (unknown) (no (unknown) (unknown) carbon monox (units (u nknown) date) detector in home: unknown) Yes (unknown) (no (unknown) (unknown) cfDNA low risk, (units (unknown) date) girl, MSAFP unknown) normal (unknown) (no (unknown) (unknown) check today (units (un known) date) shows the cervix unknown) to be 50% effaced/closed/-3 /soft/intermediat e (unknown) (no (unknown) (unknown) contractions in (units (unknown) date) an hour, unknown) (unknown) (no (unknown) (unknown) cramping and/or (units (unknown) date) leakage of fluid. unknown) Workup has been negative to date. Cervical (unknown) (no (unknown) (unknown) current (units (unkno wn) date) occupational unknown) exposures/hazards : No (unknown) (no (unknown) (unknown) current plan. (units ( unknown) date) Reports she did unknown) have a suicide attempt this december, was (unknown) (no (unknown) (unknown) daily servings (units (unknown) date) fruits/ve-4 unknown) (unknown) (no (unknown) (unknown) deployed in (units (un known) date) [place] was on unknown) video chat for the visit. She reports some increased (unknown) (no (unknown) (unknown) depression, (units (un known) date) anxiety with h/o unknown) suicide attempt 12/2021 restarted meds, Sertraline (unknown) (no (unknown) (unknown) depression, but (units (unknown) date) was trying to unknown) hold off on starting the sertraline since she (unknown) (no (unknown) (unknown) depression. (units (un known) date) Reports she unknown) currently has some suicidal thoughts but without any (unknown) (no (unknown) (unknown) described, visit (units (unknown) date) schedule unknown) reviewed, ultrasounds policy reviewed, coverage 24 (unknown) (no (unknown) (unknown) directed her to (units (unknown) date) go to ED. She unknown) reports that low-grade uterine activity, (unknown) (no (unknown) (unknown) discussed, (units (unk nown) date) tuberculosis unknown) exposure discussed, CMV discussed, Toxoplasmosis (unknown) (no (unknown) (unknown) do a Glucola (units (u nknown) date) between 26-28 unknown) weeks and we could send lab slip. Also if no care, (unknown) (no (unknown) (unknown) do you feel safe (units (unknown) date) at home: Yes unknown) (unknown) (no (unknown) (unknown) done at [facility] (units (unknown) date) health showed unknown) normal anatomy, placenta and normal cervical (unknown) (no (unknown) (unknown) duration: 15-30 (units (unknown) date) minutes/day unknown) (unknown) (no (unknown) (unknown) during the past (units (unknown) date) year weight has: unknown) other ([id number] lb) (unknown) (no (unknown) (unknown) education level: (units (unknown) date) high school unknown) (unknown) (no (unknown) (unknown) feeling (units ( unknown) date) movement yet. Her unknown) cell free DNA was low risk, girl. Remainder of (unknown) (no (unknown) (unknown) movement. (units (unknown) date) Her MSAFP was unknown) normal. Her 20 week anatomy ultrasound, (unknown) (no (unknown) (unknown) fire (units (unkno wn) date) 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 unknown) home: Yes (unknown) (no (unknown) (unknown) firearms in (units (un known) date) home: Yes unknown) firearms unloaded and locked: Yes (unknown) (no (unknown) (unknown) gestational age. (units (unknown) date) She is had 2 more unknown) visits to the center regarding (unknown) (no (unknown) (unknown) grandfather (units (un known) date) today who came unknown) from [place] to stay with her through (unknown) (no (unknown) (unknown) have occurred. 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 (units ( unknown) date) Sees a Counselor. unknown) She had used both sertraline and Lexapro in (unknown) (no (unknown) (unknown) hours a day and (units (unknown) date) participation of unknown) father in care and office visits (unknown) (no (unknown) (unknown) household (units (unkn own) date) members: spouse unknown) (unknown) (no (unknown) (unknown) housing: (units (unkno wn) date) apartment unknown) (unknown) (no (unknown) (unknown) in a few weeks. (units (unknown) date) Advised her to unknown) continue with pelvic rest for now . She reports (unknown) (no (unknown) (unknown) in the area. (units (u nknown) date) Discussed trying unknown) to establish with care in [place] (unknown) (no (unknown) (unknown) irritability was (units (unknown) date) seen on the unknown) monitor but her cervix was not dilated. They (unknown) (no (unknown) (unknown) is going to lab (units (unknown) date) again today, will unknown) also try to draw her MSAFP today (our lab (unknown) (no (unknown) (unknown) jw (units (unkno wn) date) unknown) (unknown) (no (unknown) (unknown) knows moods can (units (unknown) date) worsen during unknown) . She was considering starting now (unknown) (no (unknown) (unknown) length, 3.6 cm. (units (unknown) date) She reports that unknown) she will be out of town until approximately 31 (unknown) (no (unknown) (unknown) like start of (units ( unknown) date) menses, stopped unknown) now. Seen in ED in [place] yesterday, (unknown) (no (unknown) (unknown) lives (units (unkno wn) date) independently: unknown) Yes (unknown) (no (unknown) (unknown) marital status: (units (unknown) date) unknown) (unknown) (no (unknown) (unknown) may occur. (units (unk nown) date) Occasional unknown) wrong-word or 'sound-alike' substitutions may have (unknown) (no (unknown) (unknown) nifedipine ER 60 (units (unknown) date) mg PO DAILY 30 unknown) tabs 4RF (unknown) (no (unknown) (unknown) nifedipine (units (unk nown) date) unknown) (unknown) (no (unknown) (unknown) number of (units (unkn own) date) children: 0 unknown) (unknown) (no (unknown) (unknown) occupational (units (u nknown) date) status: unknown) unemployed (unknown) (no (unknown) (unknown) occurred due to (units (unknown) date) the inherent unknown) limitations of voice recognition software. Please (unknown) (no (unknown) (unknown) of depression in (units (unknown) date) the past, unknown) re-initiation would be sensible at this point the (unknown) (no (unknown) (unknown) otherwise. No (units ( unknown) date) cramping, unknown) bleeding, LOF or abnormal vaginal discharge. Not (unknown) (no (unknown) (unknown) pain. Has had a (units (unknown) date) stabbing pain unknown) about every 10 minutes, when ambulating, no pain (unknown) (no (unknown) (unknown) pets and (units (unkno wn) date) animals: Yes (1 unknown) dog 1 cat; aware of toxo) (unknown) (no (unknown) (unknown) placenta. She is (units (unknown) date) understandably unknown) very nervous. Ultrasound today shows viable 11 (unknown) (no (unknown) (unknown) position. (units (unkn own) date) Patient has had unknown) several episodes where she has had more than 5 or 6 (unknown) (no (unknown) (unknown) precautions, (units (u nknown) date) Listeriosis unknown) prevention and Rubella Immunization (unknown) (no (unknown) (unknown) will (units (unknown) date) still proceed unknown) normally, with retroplacental blood resolving Will (unknown) (no (unknown) (unknown) . Her (units (unknown) date) baby remains unknown) active but she denies contractions, bleeding, or (unknown) (no (unknown) (unknown) labs (units ( unknown) date) were not drawn as unknown) they could not get enough blood with small (unknown) (no (unknown) (unknown) read the note (units ( unknown) date) carefully and unknown) recognize, using context, where these substitutions (unknown) (no (unknown) (unknown) reassured that (units ( unknown) date) there was no unknown) significant risk to the and given her history (unknown) (no (unknown) (unknown) reports she has (units (unknown) date) not had any unknown) persistent cramping since. Denies spotting of (unknown) (no (unknown) (unknown) reports (units (unkno wn) date) ultrasound showed unknown) baby with heartbeat, and blood seen behind the (unknown) (no (unknown) (unknown) screen if (units (unkn own) date) covered. For cell unknown) free DNA with labs today. Believe she is (unknown) (no (unknown) (unknown) screen) (units (unkno wn) date) unknown) (unknown) (no (unknown) (unknown) seatbelt use: (units ( unknown) date) always unknown) (unknown) (no (unknown) (unknown) second hand (units (un known) date) exposure: Yes unknown) (while visiting family (mom smokes)) (unknown) (no (unknown) (unknown) send for the 11 (units (unknown) date) wk US; if areas unknown) seen was large, then will repeat the ultrasound (unknown) (no (unknown) (unknown) sertraline. (units (un known) date) Desires unknown) aneuploidy/ NTD screening, desires cell free DNA assay (unknown) (no (unknown) (unknown) significant (units (un known) date) change in vaginal unknown) discharge. 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 She unknown) reports what sounds like left round ligament (unknown) (no (unknown) (unknown) software. (units (unkn own) date) Although every unknown) effort is made to edit content, regulatory technician errors (unknown) (no (unknown) (unknown) special mirella (units ( unknown) date) needs: No unknown) (unknown) (no (unknown) (unknown) started (units (unkno wn) date) sertraline but unknown) intends to do so in the next couple of days. Patient (unknown) (no (unknown) (unknown) substance use (units ( unknown) date) type: marijuana unknown) (quit when she learned she was ) (unknown) (no (unknown) (unknown) tenderness, (units (un known) date) urinary unknown) frequency, irritability, bloating and other (heartburn) (unknown) (no (unknown) (unknown) the past with (units ( unknown) date) both helping. unknown) Most recently on Lexapro which she stopped about 2 (unknown) (no (unknown) (unknown) though before (units ( unknown) date) traveling. I unknown) encouraged her to start the sertraline now. About 2 (unknown) (no (unknown) (unknown) though she is (units ( unknown) date) traveling unknown) shortly. Otherwise to try to find a lab where she can (unknown) (no (unknown) (unknown) through (units (unkno wn) date) pharmacy. unknown) (unknown) (no (unknown) (unknown) to buy one. (units (un known) date) Discussed flu unknown) vaccination, she desires but we had no one to (unknown) (no (unknown) (unknown) to get her blood (units (unknown) date) pressure checked unknown) in about a month if anyone has a BP cuff, or (unknown) (no (unknown) (unknown) travel history: (units (unknown) date) recent (domestic unknown) only) (unknown) (no (unknown) (unknown) ultrasound for (units (unknown) date) 20 weeks. unknown) (unknown) (no (unknown) (unknown) usually does at (units (unknown) date) 16 weeks onward, unknown) so she is a day early). Schedule anatomy (unknown) (no (unknown) (unknown) veins. She (units (unk nown) date) reports 2 unknown) additional attempts at blood draws without success. She (unknown) (no (unknown) (unknown) water heater (units (u nknown) date) temp set < 120 unknown) deg: No (Will call landlord to adjust ) (unknown) (no (unknown) (unknown) week (units (unknown) date) ,? area of unknown) retroplacental blood. I reassured her that commonly (unknown) (no (unknown) (unknown) weeks ago she (units ( unknown) date) called with unknown) persistent bad cramping when in [place] and I (unknown) (no (unknown) (unknown) weeks prior to (units (unknown) date) positive unknown) test, having a feeling she may be . (unknown) (no (unknown) (unknown) weeks, in (units (unkn own) date) [place] with unknown) in loss for about 6 weeks, then 1.5-2 weeks in (unknown) (no (unknown) (unknown) well-balanced (units ( unknown) date) diet: daily or unknown) most days (unknown) (no (unknown) (unknown) will be drawn (units ( unknown) date) today along with unknown) her 1 hour GDM screen H+H. Patient has not yet (unknown) (no (unknown) (unknown) will be in 3 (units (u nknown) date) weeks or as unknown) needed. (unknown) (no (unknown) (unknown) working smoke (units ( unknown) date) detector in home: unknown) Yes Result panel [id number] (unknown) (no date) (unknown) (unknown) < 5 mg/dl (unkn own) (unknown) (no date) (unknown) (unknown) 0.03 gram/24h (unkn own) (unknown) (no date) (unknown) (unknown) 139.7 mg/dl (unkn own) Result panel [id number] (unknown) (no date) (unknown) (unknown) 0.4 % (unkn own) (unknown) (no date) (unknown) (unknown) 0.5 % (unkn own) (unknown) (no date) (unknown) (unknown) 100 /ul (unkn own) (unknown) (no date) (unknown) (unknown) 100 /ul (unkn own) (unknown) (no date) (unknown) (unknown) 11.4 x10 3/ul (unkn own) (unknown) (no date) (unknown) (unknown) 15.0 % (unkn own) (unknown) (no date) (unknown) (unknown) 17.4 % (unkn own) (unknown) (no date) (unknown) (unknown) 2000 /ul (unkn own) (unknown) (no date) (unknown) (unknown) 24.6 pg (unkn own) (unknown) (no date) (unknown) (unknown) 268 x10 3/ul (unkn own) (unknown) (no date) (unknown) (unknown) 29.7 % (unkn own) (unknown) (no date) (unknown) (unknown) 3.84 x10 6/ul (unkn own) (unknown) (no date) (unknown) (unknown) 31.7 % (unkn own) (unknown) (no date) (unknown) (unknown) 6.6 % (unkn own) (unknown) (no date) (unknown) (unknown) 75.1 % (unkn own) (unknown) (no date) (unknown) (unknown) 77.5 fl (unkn own) (unknown) (no date) (unknown) (unknown) 800 /ul (unkn own) (unknown) (no date) (unknown) (unknown) 8500 /ul (unkn own) (unknown) (no date) (unknown) (unknown) 9.4 g/dl (unkn own) Result panel [id number] (unknown) (no date) (unknown) (unknown) > 60 ml/min (unkn own) (unknown) (no date) (unknown) (unknown) > 60 ml/min (unkn own) (unknown) (no date) (unknown) (unknown) 0.47 mg/dl (unkn own) (unknown) (no date) (unknown) (unknown) 14.9 (units unknown) (unknown) (unknown) (no date) (unknown) (unknown) 24 iu/l (unkn own) (unknown) (no date) (unknown) (unknown) 4.3 mg/dl (unkn own) (unknown) (no date) (unknown) (unknown) 7 mg/dl (unkn own) Result panel [id number] (unknown) (no (unknown) (unknown) (no value) (units (unk nown) date) unknown) (unknown) (no (unknown) (unknown) (+14 lb) 98/66 N (units (unknown) date) unknown) (unknown) (no (unknown) (unknown) (+15 lb) 98/62 N (units (unknown) date) unknown) (unknown) (no (unknown) (unknown) (+6 lb) 104/68 N (units (unknown) date) unknown) (unknown) (no (unknown) (unknown) (-2 lb) 108/60 N (units (unknown) date) unknown) (unknown) (no (unknown) (unknown) (-4 lb) 100/70 N (units (unknown) date) unknown) (unknown) (no (unknown) (unknown) Genetic (units (unkn own) date) Screening/Teratol unknown) ogy Counseling - Includes patient, baby's father, or (unknown) (no (unknown) (unknown) -?-?-?-?-?-?-?-? (units (unknown) date) -?-?-?-? unknown) (unknown) (no (unknown) (unknown) 09/28/22 (units (unkno wn) date) unknown) (unknown) (no (unknown) (unknown) 10/19/22 (units (unkno wn) date) unknown) (unknown) (no (unknown) (unknown) 10/26/21 6 (units (unk nown) date) spontaneous unknown) (unknown) (no (unknown) (unknown) 10/27/20 5 (units (unk nown) date) spontaneous unknown) (unknown) (no (unknown) (unknown) [id number] (units (unkno wn) date) unknown) (unknown) (no (unknown) (unknown) 01/26/22 5 (units (unk nown) date) spontaneous unknown) (unknown) (no (unknown) (unknown) 09:14 (units (unkno wn) date) unknown) (unknown) (no (unknown) (unknown) 06/09/22 (units (unkno wn) date) unknown) (unknown) (no (unknown) (unknown) 06/29/20 5 (units (unk nown) date) spontaneous unknown) (unknown) (no (unknown) (unknown) 07/07/22 (units (unkno wn) date) unknown) (unknown) (no (unknown) (unknown) 11w 5d 123 lb (units ( unknown) date) unknown) (unknown) (no (unknown) (unknown) 08/11/22 (units (unkno wn) date) unknown) (unknown) (no (unknown) (unknown) 15w 5d 121 lb (units ( unknown) date) unknown) (unknown) (no (unknown) (unknown) 21 yo here (units (unknown) date) for IOB visit unknown) @11wk5d. An 8 week US was c/w LMP-TIFFANIE. H/o (unknown) (no (unknown) (unknown) 20w 5d 131 lb (units ( unknown) date) unknown) (unknown) (no (unknown) (unknown) 27w 4d 139 lb (units ( unknown) date) unknown) (unknown) (no (unknown) (unknown) 30w 4d 140 lb (units ( unknown) date) unknown) (unknown) (no (unknown) (unknown) @ 12wks--did not (units (unknown) date) start yet @ 20 unknown) weeks, was going to re-start (unknown) (no (unknown) (unknown) ADHD (units (unkno wn) date) unknown) (unknown) (no (unknown) (unknown) Abnormal lab (units (u nknown) date) values 1st unknown) trimester: discussed (unknown) (no (unknown) (unknown) Acne (units (unkno wn) date) unknown) (unknown) (no (unknown) (unknown) Add'l Plan (units (unk nown) date) Details unknown) (unknown) (no (unknown) (unknown) Age/Sex: 22 / F (units (unknown) date) Date of Service: unknown) (unknown) (no (unknown) (unknown) Allergies (units (unkn own) date) unknown) (unknown) (no (unknown) (unknown) [place], [place] (units ( unknown) date) [id number] unknown) (unknown) (no (unknown) (unknown) Anemia (-2020) (units (unknown) date) unknown) (unknown) (no (unknown) (unknown) Anesthesia (units (unk nown) date) unknown) (unknown) (no (unknown) (unknown) Aneuploidy (units (unk nown) date) Screening unknown) Offered: Accepted (undecided, will probably get quad (unknown) (no (unknown) (unknown) Anticipate , (units (unknown) date) [facility] unknown) (unknown) (no (unknown) (unknown) Anticipated (units (un known) date) course of unknown) care: discussed (unknown) (no (unknown) (unknown) Anxiety (units (unkno wn) date) unknown) (unknown) (no (unknown) (unknown) Assessment and (units (unknown) date) Plan unknown) (unknown) (no (unknown) (unknown) Attending Dr: (units ( unknown) date) Chaka Flores unknown) (unknown) (no (unknown) (unknown) Autism (units (unkno wn) date) unknown) (unknown) (no (unknown) (unknown) B6. On review of (units (unknown) date) options she unknown) desires Zofran, Rx sent. History of severe (unknown) (no (unknown) (unknown) BMI 24.7 (units (unkno wn) date) unknown) (unknown) (no (unknown) (unknown) BP 98/62 (units (unkno wn) date) unknown) (unknown) (no (unknown) (unknown) Bipolar disorder (units (unknown) date) unknown) (unknown) (no (unknown) (unknown) (units (unkno wn) date) Plan/Preferences unknown) (unknown) (no (unknown) (unknown) Planning (units (unknown) date) unknown) (unknown) (no (unknown) (unknown) Blood Pressure (units (unknown) date) Location Rt unknown) brachial (unknown) (no (unknown) (unknown) Blood (units (unkno wn) date) transfusions?: unknown) yes (Never had but would accept) (unknown) (no (unknown) (unknown) Breastfeed Preg (units (unknown) date) Comp Name unknown) (unknown) (no (unknown) (unknown) Brother Anxiety (units (unknown) date) unknown) (unknown) (no (unknown) (unknown) Caffeine use, (units ( unknown) date) Exercise and unknown) activity, work/environmenta l/hazards, Sexual (unknown) (no (unknown) (unknown) [place] with (units (unknown) date) her grandfather. unknown) Appears grandfather's no longer here with her (unknown) (no (unknown) (unknown) Cancer (units (unkno wn) date) unknown) (unknown) (no (unknown) (unknown) Childbirth (units (unk nown) date) Classes: unknown) discussed (unknown) (no (unknown) (unknown) [facility]. (units (unknown) date) 20 week US normal unknown) (unknown) (no (unknown) (unknown) Current Estimate (units (unknown) date) 12/24/22 LMP unknown) (Certain) 31w 2d (unknown) (no (unknown) (unknown) Current (units (unkno wn) date) History unknown) (unknown) (no (unknown) (unknown) : 2000 (units (unknown) date) Acct:[id number] unknown) (unknown) (no (unknown) (unknown) Date of positive (units (unknown) date) home unknown) test: 04/10/22 (unknown) (no (unknown) (unknown) Date (units (unkno wn) date) unknown) (unknown) (no (unknown) (unknown) Del. Date (units (unkn own) date) GA/Weeks Labor unknown) Lgth Wt Sex Route Outcome Anesthesia Place (unknown) (no (unknown) (unknown) Delv (units (unkno wn) date) unknown) (unknown) (no (unknown) (unknown) Depression / (units (u nknown) date) anxiety is worse unknown) now, she does desire to restart medication. Rx (unknown) (no (unknown) (unknown) Depression (units (unk nown) date) unknown) (unknown) (no (unknown) (unknown) Depression: (units (un known) date) discussed unknown) (unknown) (no (unknown) (unknown) Dept at (units (unkno wn) date) . unknown) (unknown) (no (unknown) (unknown) [facility] and (units (un known) date) [facility] returns unknown) today for her FRED visit now 30+ 4 weeks (unknown) (no (unknown) (unknown) [facility] is here (units (unknown) date) for a FRED visit @ unknown) 15wk5d. She is accompanied by her (unknown) (no (unknown) (unknown) [facility] presents (units (unknown) date) for an are OB unknown) visit at 20 weeks 5 days. [place], (unknown) (no (unknown) (unknown) [facility] returns (units (unknown) date) today for her FRED unknown) visit now at 27+ 4 weeks gestational (unknown) (no (unknown) (unknown) Diabetes (units (unkno wn) date) mellitus unknown) (unknown) (no (unknown) (unknown) Diet and (units (unkno wn) date) Exercise unknown) (unknown) (no (unknown) (unknown) Documented By: (units (unknown) date) Chaka Flores unknownBlanca BEE 10/19/22 0913 (unknown) (no (unknown) (unknown) Draft (units (unkno wn) date) unknown) (unknown) (no (unknown) (unknown) TIFFANIE Calculator (units (unknown) date) unknown) (unknown) (no (unknown) (unknown) EGA Weight BP (units ( unknown) date) UGlucose unknown) (unknown) (no (unknown) (unknown) Estimated (units (unkn own) date) Delivery Date unknown) Method Current (unknown) (no (unknown) (unknown) Expected (units (unkno wn) date) Delivery unknown) Route/Plan (unknown) (no (unknown) (unknown) Family History (units (unknown) date) (Reviewed unknown) 10/10/22 @ 21:45 by Linh Mcginnis, TAB, STEVE) (unknown) (no (unknown) (unknown) Father Diabetes (units (unknown) date) mellitus unknown) (unknown) (no (unknown) (unknown) Father of Baby: (units (unknown) date) same unknown) (unknown) (no (unknown) (unknown) [facility] unknown) (unknown) (no (unknown) (unknown) First Trimester (units (unknown) date) Education unknown) Checklist (unknown) (no (unknown) (unknown) (all-5 week (units (unknown) date) SABs) unknown) (unknown) (no (unknown) (unknown) Genetic (units (unkno [...] practice discussed, personnel (unknown) (no (unknown) (unknown) Height 5 ft 3 in (units (unknown) date) unknown) (unknown) (no (unknown) (unknown) Hepatitis C risk (units (unknown) date) evaluation: low unknown) risk (unknown) (no (unknown) (unknown) History of (units (unk nown) date) Hepatitis B: No unknown) (unknown) (no (unknown) (unknown) History of (units (unk nown) date) Hepatitis C: No unknown) 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 (unknown) (no (unknown) (unknown) History of (units (unk nown) date) removal of skin unknown) mole (unknown) (no (unknown) (unknown) Hospital: (units (u nknown) date) unknown) (unknown) (no (unknown) (unknown) [facility], (units (unknown) date) deployed unknown) (unknown) (no (unknown) (unknown) Hx # (units (u nknown) date) Pregnancies 0 unknown) Elective abortions 0 (unknown) (no (unknown) (unknown) Hx # Term (units (unkn own) date) Pregnancies 0 unknown) Ectopic pregnancies 0 (unknown) (no (unknown) (unknown) Hyperlipidemia (units (unknown) date) unknown) (unknown) (no (unknown) (unknown) Hypertension (units (u nknown) date) unknown) (unknown) (no (unknown) (unknown) will be (units (unknown) date) adopted?: no [...] Staff unknown) (unknown) (no (unknown) (unknown) Intake Note: (units (u nknown) date) unknown) (unknown) (no (unknown) (unknown) Intake performed (units (unknown) date) by: Michele Saha unknown) (unknown) (no (unknown) (unknown) Intake (units (unkno wn) date) unknown) (unknown) (no (unknown) (unknown) LMP-TIFFANIE (units (unkno wn) date) unknown) (unknown) (no [...] (unknown) date) unknown) (unknown) (no (unknown) (unknown) May take up to 4 (units (unknown) date) doses. If unknown) contractions persist, contact provider. 10 mg PO (unknown) (no (unknown) (unknown) Medical History (units (unknown) date) (Reviewed unknown) 10/10/22 @ 21:45 by Linh Mcginnis, TAB, [employer]) (unknown) (no (unknown) (unknown) Medications: (units (u nknown) date) unknown) (unknown) (no (unknown) (unknown) Mental health (units ( unknown) date) problem unknown) (unknown) (no (unknown) (unknown) Mother (units (unkno wn) date) Gestational unknown) diabetes (unknown) (no (unknown) (unknown) N Yes no 138 30 (units (unknown) date) Vertex absent 2 unknown) wks (unknown) (no (unknown) (unknown) N Yes no 144 20 (units (unknown) date) absent 4wk unknown) (unknown) (no (unknown) (unknown) New (units (unkno wn) date) unknown) (unknown) (no (unknown) (unknown) No Known Drug (units ( unknown) date) Allergies Allergy unknown) (Verified 08/11/22 12:00) (unknown) (no (unknown) (unknown) Notes (units (unkno wn) date) unknown) (unknown) (no (unknown) (unknown) Number of Living (units (unknown) date) Children 0 unknown) (unknown) (no (unknown) (unknown) Number of (units (unkn own) date) fetuses:: Single unknown) (unknown) (no (unknown) (unknown) Nutrition and (units ( unknown) date) weight gain unknown) counseling: special diet: discussed (unknown) (no (unknown) (unknown) OB Office Visit (units (unknown) date) unknown) (unknown) (no (unknown) (unknown) OB Visit Log (units (u nknown) date) unknown) (unknown) (no (unknown) (unknown) On control (units (unknown) date) at conception?: unknown) No (unknown) (no (unknown) (unknown) Orders (units (unkno wn) date) unknown) (unknown) (no (unknown) (unknown) Orders: (units (unkno wn) date) unknown) (unknown) (no (unknown) (unknown) Other Estimates (units (unknown) date) 12/22/22 unknown) Ultrasound #1 31w 4d (unknown) (no (unknown) (unknown) Ova and Parasite (units (unknown) date) Exam 10/19/22 unknown) R19.7 - Diarrhea, unspecified (unknown) (no (unknown) (unknown) Ovarian cyst (units (u nknown) date) () unknown) (unknown) (no (unknown) (unknown) PFSH (units (unkno wn) date) unknown) (unknown) (no (unknown) (unknown) PID (acute (units (unk nown) date) pelvic unknown) inflammatory disease) (unknown) (no (unknown) (unknown) PTSD (units (unkno wn) date) (post-traumatic unknown) stress disorder) () (unknown) (no (unknown) (unknown) Para 0 (units [...] Patient: (units (unkno wn) date) [facility] [place] N unknown) MR#: [id number] (unknown) (no (unknown) (unknown) 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: (units ( unknown) date) CHAR Garg unknown) (unknown) (no (unknown) (unknown) Personal history (units (unknown) date) of STD: other unknown) (PID (unknown bacterial agent) in 12/2021) (unknown) (no (unknown) (unknown) Personal history (units (unknown) date) of genital unknown) herpes: No (unknown) (no (unknown) (unknown) Position Sitting (units (unknown) date) unknown) (unknown) (no (unknown) (unknown) (units (unkn own) date) History unknown) (unknown) (no (unknown) (unknown) type:: (units (unknown) date) First unknown) (unknown) (no (unknown) (unknown) (units (unkno wn) date) Education unknown) (unknown) (no (unknown) (unknown) Initial (units (unknown) date) Assessment unknown) (unknown) (no (unknown) (unknown) (units (unkno wn) date) Specific unknown) Issues/Plans (unknown) (no (unknown) (unknown) (units (unkno wn) date) Testing: unknown) discussed (unknown) (no (unknown) (unknown) Visit (units (unknown) date) unknown) (unknown) (no (unknown) (unknown) (units (unkno wn) date) education packet: unknown) Child education/plan, symptoms, (unknown) (no (unknown) (unknown) Primary Care (units (u nknown) date) Provider: [facility] [place] unknown) [place] (unknown) (no (unknown) (unknown) Primary Ob (units (unk nown) date) Provider: unknown) Tyesha Brito (unknown) (no (unknown) (unknown) Prior (units (unkno wn) date) GBS-Infected unknown) child: No (unknown) (no (unknown) (unknown) Prostate cancer (units (unknown) date) unknown) (unknown) (no (unknown) (unknown) Providers (units (unkn own) date) unknown) (unknown) (no (unknown) (unknown) Pt here for OB (units (unknown) date) Check unknown) (unknown) (no (unknown) (unknown) Q20M PRN 30 caps (units (unknown) date) 2RF cramping unknown) (unknown) (no (unknown) (unknown) Rash or viral (units ( unknown) date) illness since unknown) last menstrual period: No (unknown) (no (unknown) (unknown) Reason For Visit (units (unknown) date) unknown) (unknown) (no (unknown) (unknown) Recent travel (units ( unknown) date) outside of unknown) country?: No (unknown) (no (unknown) (unknown) Recurrent UTI (units ( unknown) date) () unknown) (unknown) (no (unknown) (unknown) Recurrent (units [...] siblings w/ autism) (unknown) (no (unknown) (unknown) Rh positive, (units (u nknown) date) will check unknown) results today, RhoGAM as needed. (unknown) (no (unknown) (unknown) Sabs x4 @5-6 (units (u nknown) date) weeks. She passed unknown) a small clot a week ago, then had BRB yesterday (unknown) (no (unknown) (unknown) Safety (units (unkno wn) date) unknown) (unknown) (no (unknown) (unknown) Schizophrenia (units ( unknown) date) unknown) (unknown) (no (unknown) (unknown) Seizures (-2003) (units (unknown) date) unknown) (unknown) (no (unknown) [...] (unknown) date) unknown) (unknown) (no (unknown) (unknown) Stool Culture (units ( unknown) date) 10/19/22 R19.7 - unknown) Diarrhea, unspecified (unknown) (no (unknown) (unknown) Support (units (unkno wn) date) Person(s):: unknown) [facility] (unknown) (no (unknown) (unknown) Surgical History (units (unknown) date) (Reviewed unknown) 10/10/22 @ 21:45 by Linh Mcginnis, TAB, STEVE) (unknown) (no (unknown) (unknown) Surrogate (units (unkn own) date) ?: no unknown) (unknown) (no (unknown) (unknown) Symptoms since (units (unknown) date) LMP: Reports unknown) amenorrhea, nausea, vomiting, fatigue, breast (unknown) (no (unknown) (unknown) TR No no 138 16 (units (unknown) date) absent 4wk unknown) (unknown) (no (unknown) (unknown) TR No no 162 12 (units (unknown) date) absent 4wk unknown) (unknown) (no (unknown) (unknown) TR Yes no 142 28 (units (unknown) date) absent 3 wks unknown) (unknown) (no (unknown) (unknown) Teratogen (units (unkn [...] (unknown) date) unknown) (unknown) (no (unknown) (unknown) Trimester:: 3rd (units (unknown) date) Trimester unknown) (28wks-Del) (unknown) (no (unknown) (unknown) Type(s) of (units (unk nown) date) exercise: walking unknown) (unknown) (no (unknown) (unknown) UProtein Movement (units (unknown) date) PreLabor FHR Fndl unknown) Ht Pres Edema Cerv Exam US/Comment Next Appt (unknown) (no (unknown) (unknown) Ultrasound (units (unk nown) date) Details:: 05/17/22 unknown) US @ [facility]: SIUP, CRL c/w 8wk5d, US-TIFFANIE 12/22/22, c/w (unknown) (no (unknown) (unknown) Ultrasound (units (unk nown) date) unknown) (unknown) (no (unknown) (unknown) Varicella/chicke (units (unknown) date) n pox status: unknown) immunized (unknown) (no (unknown) (unknown) Visit Date: (units (un known) date) 09/28/22 Last unknown) Updated by: Chaka Flores MD (unknown) (no (unknown) (unknown) Visit Date: (units (un known) date) 10/19/22 Last unknown) Updated by: Chaka Flores MD (unknown) (no (unknown) (unknown) Visit Date: (units (un known) date) 06/09/22 Last unknown) Updated by: Tyesha Brito MD (unknown) (no (unknown) (unknown) Visit Date: (units (un known) date) 07/07/22 Last unknown) Updated by: Tyesha Brito MD (unknown) (no (unknown) (unknown) Visit Date: (units (un known) date) 08/11/22 Last unknown) Updated by: Tyesha Brito MD (unknown) (no (unknown) (unknown) Visit Reasons: (units (unknown) date) OB unknown) (unknown) (no (unknown) (unknown) Vitals (units (unkno wn) date) unknown) (unknown) (no (unknown) (unknown) Vitamins and (units (u nknown) date) iron, Diet and unknown) weight gain, Fish and mercury intake, Smoking, (unknown) (no (unknown) (unknown) WG (units (unkno wn) date) unknown) (unknown) (no (unknown) (unknown) Weeks (units (unkno wn) date) gestation:: 30 unknown) (unknown) (no (unknown) (unknown) Weight 140 lb (units ( unknown) date) unknown) (unknown) (no (unknown) (unknown) Zika virus (units (unk nown) date) exposure: No unknown) (unknown) (no (unknown) (unknown) a lot of nausea (units (unknown) date) with emesis, may unknown) last whole day. No improvement with Unisom / (unknown) (no (unknown) (unknown) activity, X-ray (units (unknown) date) exposure, unknown) Medication use, Sauna/hot tub use, Dental care, (unknown) (no (unknown) (unknown) administer (units (unk nown) date) currently for unknown) about 30 minutes. She states she will try to get (unknown) (no (unknown) (unknown) advised her that (units (unknown) date) she should return unknown) if she felt regular contractions. She (unknown) (no (unknown) (unknown) age. She was (units (u nknown) date) seen on the unknown) center last night with possible leakage of fluid (unknown) (no (unknown) (unknown) alcohol intake: (units (unknown) date) never unknown) (unknown) (no (unknown) (unknown) amh (units (unkno wn) date) unknown) (unknown) (no (unknown) (unknown) anyone in either (units (unknown) date) family with: unknown) (unknown) (no (unknown) (unknown) bleeding in 1st (units (unknown) date) trimester, unknown) resolved. Reported retroplacental bleed on US @ (unknown) (no (unknown) (unknown) blood, abnormal (units (unknown) date) vaginal discharge unknown) or leakage of fluid. She is feeling routine (unknown) (no (unknown) (unknown) but AmniSure was (units (unknown) date) negative and unknown) evaluation showed no issues of concern. Review of (unknown) (no (unknown) (unknown) caffeine: Yes (units ( unknown) date) (occasionally, unknown) aware of 200mg limit) (unknown) (no (unknown) (unknown) carbon monox (units (u nknown) date) detector in home: unknown) Yes (unknown) (no (unknown) (unknown) cfDNA low risk, (units (unknown) date) girl, MSAFP unknown) normal (unknown) (no (unknown) (unknown) check today (units (un known) date) shows the cervix unknown) to be 50% effaced/closed/-3 /soft/intermediat e (unknown) (no (unknown) (unknown) contractions in (units (unknown) date) an hour, unknown) (unknown) (no (unknown) (unknown) cramping and/or (units (unknown) date) leakage of fluid. unknown) Workup has been negative to date. Cervical (unknown) (no (unknown) (unknown) current (units (unkno wn) date) occupational unknown) exposures/hazards : No (unknown) (no (unknown) (unknown) current plan. (units ( unknown) date) Reports she did unknown) have a suicide attempt this december, was (unknown) (no (unknown) (unknown) daily servings (units (unknown) date) fruits/ve-4 unknown) (unknown) (no (unknown) (unknown) deployed in (units (un known) date) [place] was on unknown) video chat for the visit. She reports some increased (unknown) (no (unknown) (unknown) depression, (units (un known) date) anxiety with h/o unknown) suicide attempt 12/2021 restarted meds, Sertraline (unknown) (no (unknown) (unknown) depression, but (units (unknown) date) was trying to unknown) hold off on starting the sertraline since she (unknown) (no (unknown) (unknown) depression. (units (un known) date) Reports she unknown) currently has some suicidal thoughts but without any (unknown) (no (unknown) (unknown) described, visit (units (unknown) date) schedule unknown) reviewed, ultrasounds policy reviewed, coverage 24 (unknown) (no (unknown) (unknown) directed her to (units (unknown) date) go to ED. She unknown) reports that low-grade uterine activity, (unknown) (no (unknown) (unknown) discussed, (units (unk nown) date) tuberculosis unknown) exposure discussed, CMV discussed, Toxoplasmosis (unknown) (no (unknown) (unknown) do a Glucola (units (u nknown) date) between 26-28 unknown) weeks and we could send lab slip. Also if no care, (unknown) (no (unknown) (unknown) do you feel safe (units (unknown) date) at home: Yes unknown) (unknown) (no (unknown) (unknown) done at [facility] (units (unknown) date) health showed unknown) normal anatomy, placenta and normal cervical (unknown) (no (unknown) (unknown) duration: 15-30 (units (unknown) date) minutes/day unknown) (unknown) (no (unknown) (unknown) during the past (units (unknown) date) year weight has: unknown) other ([id number] lb) (unknown) (no (unknown) (unknown) education level: (units (unknown) date) high school unknown) (unknown) (no (unknown) (unknown) feeling (units ( unknown) date) movement yet. Her unknown) cell free DNA was low risk, girl. Remainder of (unknown) (no (unknown) (unknown) movement. (units (unknown) date) Her MSAFP was unknown) normal. Her 20 week anatomy ultrasound, (unknown) (no (unknown) (unknown) fire (units (unkno wn) date) 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 unknown) home: Yes (unknown) (no (unknown) (unknown) firearms in (units (un known) date) home: Yes unknown) firearms unloaded and locked: Yes (unknown) (no (unknown) (unknown) gestational age. (units (unknown) date) She is had 2 more unknown) visits to the center regarding (unknown) (no (unknown) (unknown) grandfather (units (un known) date) today who came unknown) from [place] to stay with her through (unknown) (no (unknown) (unknown) have occurred. 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 (units ( unknown) date) Sees a Counselor. unknown) She had used both sertraline and Lexapro in (unknown) (no (unknown) (unknown) hours a day and (units (unknown) date) participation of unknown) father in care and office visits (unknown) (no (unknown) (unknown) household (units (unkn own) date) members: spouse unknown) (unknown) (no (unknown) (unknown) housing: (units (unkno wn) date) apartment unknown) (unknown) (no (unknown) (unknown) in a few weeks. (units (unknown) date) Advised her to unknown) continue with pelvic rest for now . She reports (unknown) (no (unknown) (unknown) in the area. (units (u nknown) date) Discussed trying unknown) to establish with care in [place] (unknown) (no (unknown) (unknown) irritability was (units (unknown) date) seen on the unknown) monitor but her cervix was not dilated. They (unknown) (no (unknown) (unknown) is going to lab (units (unknown) date) again today, will unknown) also try to draw her MSAFP today (our lab (unknown) (no (unknown) (unknown) jw (units (unkno wn) date) unknown) (unknown) (no (unknown) (unknown) knows moods can (units (unknown) date) worsen during unknown) . She was considering starting now (unknown) (no (unknown) (unknown) length, 3.6 cm. (units (unknown) date) She reports that unknown) she will be out of town until approximately 31 (unknown) (no (unknown) (unknown) like start of (units ( unknown) date) menses, stopped unknown) now. Seen in ED in [place] yesterday, (unknown) (no (unknown) (unknown) lives (units (unkno wn) date) independently: unknown) Yes (unknown) (no (unknown) (unknown) marital status: (units (unknown) date) unknown) (unknown) (no (unknown) (unknown) may occur. (units (unk nown) date) Occasional unknown) wrong-word or 'sound-alike' substitutions may have (unknown) (no (unknown) (unknown) nifedipine ER 60 (units (unknown) date) mg PO DAILY 30 unknown) tabs 4RF (unknown) (no (unknown) (unknown) nifedipine (units (unk nown) date) unknown) (unknown) (no (unknown) (unknown) number of (units (unkn own) date) children: 0 unknown) (unknown) (no (unknown) (unknown) occupational (units (u nknown) date) status: unknown) unemployed (unknown) (no (unknown) (unknown) occurred due to (units (unknown) date) the inherent unknown) limitations of voice recognition software. Please (unknown) (no (unknown) (unknown) of depression in (units (unknown) date) the past, unknown) re-initiation would be sensible at this point the (unknown) (no (unknown) (unknown) otherwise. No (units ( unknown) date) cramping, unknown) bleeding, LOF or abnormal vaginal discharge. Not (unknown) (no (unknown) (unknown) pain. Has had a (units (unknown) date) stabbing pain unknown) about every 10 minutes, when ambulating, no pain (unknown) (no (unknown) (unknown) pets and (units (unkno wn) date) animals: Yes (1 unknown) dog 1 cat; aware of toxo) (unknown) (no (unknown) (unknown) placenta. She is (units (unknown) date) understandably unknown) very nervous. Ultrasound today shows viable 11 (unknown) (no (unknown) (unknown) position. (units (unkn own) date) Patient has had unknown) several episodes where she has had more than 5 or 6 (unknown) (no (unknown) (unknown) precautions, (units (u nknown) date) Listeriosis unknown) prevention and Rubella Immunization (unknown) (no (unknown) (unknown) will (units (unknown) date) still proceed unknown) normally, with retroplacental blood resolving Will (unknown) (no (unknown) (unknown) . Her (units (unknown) date) baby remains unknown) active but she denies contractions, bleeding, or (unknown) (no (unknown) (unknown) labs (units ( unknown) date) were not drawn as unknown) they could not get enough blood with small (unknown) (no (unknown) (unknown) read the note (units ( unknown) date) carefully and unknown) recognize, using context, where these substitutions (unknown) (no (unknown) (unknown) reassured that (units ( unknown) date) there was no unknown) significant risk to the and given her history (unknown) (no (unknown) (unknown) reports she has (units (unknown) date) not had any unknown) persistent cramping since. Denies spotting of (unknown) (no (unknown) (unknown) reports (units (unkno wn) date) ultrasound showed unknown) baby with heartbeat, and blood seen behind the (unknown) (no (unknown) (unknown) screen if (units (unkn own) date) covered. For cell unknown) free DNA with labs today. Believe she is (unknown) (no (unknown) (unknown) screen) (units (unkno wn) date) unknown) (unknown) (no (unknown) (unknown) seatbelt use: (units ( unknown) date) always unknown) (unknown) (no (unknown) (unknown) second hand (units (un known) date) exposure: Yes unknown) (while visiting family (mom smokes)) (unknown) (no (unknown) (unknown) send for the 11 (units (unknown) date) wk US; if areas unknown) seen was large, then will repeat the ultrasound (unknown) (no (unknown) (unknown) sertraline. (units (un known) date) Desires unknown) aneuploidy/ NTD screening, desires cell free DNA assay (unknown) (no (unknown) (unknown) significant (units (un known) date) change in vaginal unknown) discharge. 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 She unknown) reports what sounds like left round ligament (unknown) (no (unknown) (unknown) software. (units (unkn own) date) Although every unknown) effort is made to edit content, regulatory technician errors (unknown) (no (unknown) (unknown) special mirella (units ( unknown) date) needs: No unknown) (unknown) (no (unknown) (unknown) started (units (unkno wn) date) sertraline but unknown) intends to do so in the next couple of days. Patient (unknown) (no (unknown) (unknown) substance use (units ( unknown) date) type: marijuana unknown) (quit when she learned she was ) (unknown) (no (unknown) (unknown) tenderness, (units (un known) date) urinary unknown) frequency, irritability, bloating and other (heartburn) (unknown) (no (unknown) (unknown) the past with (units ( unknown) date) both helping. unknown) Most recently on Lexapro which she stopped about 2 (unknown) (no (unknown) (unknown) though before (units ( unknown) date) traveling. I unknown) encouraged her to start the sertraline now. About 2 (unknown) (no (unknown) (unknown) though she is (units ( unknown) date) traveling unknown) shortly. Otherwise to try to find a lab where she can (unknown) (no (unknown) (unknown) through (units (unkno wn) date) pharmacy. unknown) (unknown) (no (unknown) (unknown) to buy one. (units (un known) date) Discussed flu unknown) vaccination, she desires but we had no one to (unknown) (no (unknown) (unknown) to get her blood (units (unknown) date) pressure checked unknown) in about a month if anyone has a BP cuff, or (unknown) (no (unknown) (unknown) travel history: (units (unknown) date) recent (domestic unknown) only) (unknown) (no (unknown) (unknown) ultrasound for (units (unknown) date) 20 weeks. unknown) (unknown) (no (unknown) (unknown) usually does at (units (unknown) date) 16 weeks onward, unknown) so she is a day early). Schedule anatomy (unknown) (no (unknown) (unknown) veins. She (units (unk nown) date) reports 2 unknown) additional attempts at blood draws without success. She (unknown) (no (unknown) (unknown) water heater (units (u nknown) date) temp set < 120 unknown) deg: No (Will call landlord to adjust ) (unknown) (no (unknown) (unknown) week (units (unknown) date) ,? area of unknown) retroplacental blood. I reassured her that commonly (unknown) (no (unknown) (unknown) weeks ago she (units ( unknown) date) called with unknown) persistent bad cramping when in [place] and I (unknown) (no (unknown) (unknown) weeks prior to (units (unknown) date) positive unknown) test, having a feeling she may be . (unknown) (no (unknown) (unknown) weeks, in (units (unkn own) date) [place] with unknown) in loss for about 6 weeks, then 1.5-2 weeks in (unknown) (no (unknown) (unknown) well-balanced (units ( unknown) date) diet: daily or unknown) most days (unknown) (no (unknown) (unknown) will be drawn (units ( unknown) date) today along with unknown) her 1 hour GDM screen H+H. Patient has not yet (unknown) (no (unknown) (unknown) will be in 3 (units (u nknown) date) weeks or as unknown) needed. (unknown) (no (unknown) (unknown) working smoke (units ( unknown) date) detector in home: unknown) Yes Result panel 183 (unknown) (no (unknown) (unknown) (no value) (units (unk nown) date) unknown) (unknown) (no (unknown) (unknown) (+14 lb) 98/66 N (units (unknown) date) unknown) (unknown) (no (unknown) (unknown) (+15 lb) 98/62 N (units (unknown) date) unknown) (unknown) (no (unknown) (unknown) (+6 lb) 104/68 N (units (unknown) date) unknown) (unknown) (no (unknown) (unknown) (-2 lb) 108/60 N (units (unknown) date) unknown) (unknown) (no (unknown) (unknown) (-4 lb) 100/70 N (units (unknown) date) unknown) (unknown) (no (unknown) (unknown) (1) (units (un known) date) uterine unknown) contractions: (unknown) (no (unknown) (unknown) (2) : (units (unknown) date) unknown) (unknown) (no (unknown) (unknown) (3) Diarrhea: (units ( unknown) date) unknown) (unknown) (no (unknown) (unknown) Genetic (units (unkn own) date) Screening/Teratol unknown) ogy Counseling - Includes patient, baby's father, or (unknown) (no (unknown) (unknown) -?-?-?-?-?-?-?-? (units (unknown) date) -?-?-?-? unknown) (unknown) (no (unknown) (unknown) 09/28/22 (units (unkno wn) date) unknown) (unknown) (no (unknown) (unknown) 10/19/22 (units (unkno wn) date) unknown) (unknown) (no (unknown) (unknown) 10/24/22 1000 (units ( unknown) date) unknown) (unknown) (no (unknown) (unknown) 10/26/21 6 (units (unk nown) date) spontaneous unknown) (unknown) (no (unknown) (unknown) 10/27/20 5 (units (unk nown) date) spontaneous unknown) (unknown) (no (unknown) (unknown) [id number] (units (unkno wn) date) unknown) (unknown) (no (unknown) (unknown) 01/26/22 5 (units (unk nown) date) spontaneous unknown) (unknown) (no (unknown) (unknown) 09:14 (units (unkno wn) date) unknown) (unknown) (no (unknown) (unknown) 06/09/22 (units (unkno wn) date) unknown) (unknown) (no (unknown) (unknown) 06/29/20 5 (units (unk nown) date) spontaneous unknown) (unknown) (no (unknown) (unknown) 07/07/22 (units (unkno wn) date) unknown) (unknown) (no (unknown) (unknown) 11w 5d 123 lb (units ( unknown) date) unknown) (unknown) (no (unknown) (unknown) 08/11/ (units (unkno wn) date) unknown) (unknown) (no (unknown) (unknown) 15w 5d 121 lb (units ( unknown) date) unknown) (unknown) (no (unknown) (unknown) 21 yo here (units (unknown) date) for IOB visit unknown) @11wk5d. An 8 week US was c/w LMP-TIFFANIE. H/o (unknown) (no (unknown) (unknown) 2 wks (units (unkno wn) date) unknown) (unknown) (no (unknown) (unknown) 20w 5d 131 lb (units ( unknown) date) unknown) (unknown) (no (unknown) (unknown) 27w 4d 139 lb (units ( unknown) date) unknown) (unknown) (no (unknown) (unknown) 30w 4d 140 lb (units ( unknown) date) unknown) (unknown) (no (unknown) (unknown) @ 12wks--did not (units (unknown) date) start yet @ 20 unknown) weeks, was going to re-start (unknown) (no (unknown) (unknown) ADHD (units (unkno wn) date) unknown) (unknown) (no (unknown) (unknown) Abnormal lab (units (u nknown) date) values 1st unknown) trimester: discussed (unknown) (no (unknown) (unknown) Acne (units (unkno wn) date) unknown) (unknown) (no (unknown) (unknown) Add'l Plan (units (unk nown) date) Details unknown) (unknown) (no (unknown) (unknown) Age/Sex: 22 / F (units (unknown) date) Date of Service: unknown) (unknown) (no (unknown) (unknown) Allergies (units (unkn own) date) unknown) (unknown) (no (unknown) (unknown) [place], [place] (units ( unknown) date) [id number] unknown) (unknown) (no (unknown) (unknown) Anemia (-2020) (units (unknown) date) unknown) (unknown) (no (unknown) (unknown) Anesthesia (units (unk nown) date) unknown) (unknown) (no (unknown) (unknown) Aneuploidy (units (unk nown) date) Screening unknown) Offered: Accepted (undecided, will probably get quad (unknown) (no (unknown) (unknown) Anticipate , (units (unknown) date) [facility] unknown) (unknown) (no (unknown) (unknown) Anticipated (units (un known) date) course of unknown) care: discussed (unknown) (no (unknown) (unknown) Anxiety (units (unkno wn) date) unknown) (unknown) (no (unknown) (unknown) Assessment and (units (unknown) date) Plan unknown) (unknown) (no (unknown) (unknown) Attending Dr: (units ( unknown) date) Chaka Flores unknown) (unknown) (no (unknown) (unknown) Autism (units (unkno wn) date) unknown) (unknown) (no (unknown) (unknown) B6. On review of (units (unknown) date) options she unknown) sunis Jing, Rx sent. History of severe (unknown) (no (unknown) (unknown) BMI 24.7 (units (unkno wn) date) unknown) (unknown) (no (unknown) (unknown) BP 98/62 (units (unkno wn) date) unknown) (unknown) (no (unknown) (unknown) Bipolar disorder (units (unknown) date) unknown) (unknown) (no (unknown) (unknown) (units (unkno wn) date) Plan/Preferences unknown) (unknown) (no (unknown) (unknown) Planning (units (unknown) date) unknown) (unknown) (no (unknown) (unknown) Blood Pressure (units (unknown) date) Location Rt unknown) brachial (unknown) (no (unknown) (unknown) Blood (units (unkno wn) date) transfusions?: unknown) yes (Never had but would accept) (unknown) (no (unknown) (unknown) Breastfeed Preg (units (unknown) date) Comp Name unknown) (unknown) (no (unknown) (unknown) Brother Anxiety (units (unknown) date) unknown) (unknown) (no (unknown) (unknown) Caffeine use, (units ( unknown) date) Exercise and unknown) activity, work/environmenta l/hazards, Sexual (unknown) (no (unknown) (unknown) [place] with (units (unknown) date) her grandfather. unknown) Appears grandfather's no longer here with her (unknown) (no (unknown) (unknown) Cancer (units (unkno wn) date) unknown) (unknown) (no (unknown) (unknown) Childbirth (units (unk nown) date) Classes: unknown) discussed (unknown) (no (unknown) (unknown) [place] ED. (units (unknown) date) 20 week US normal unknown) (unknown) (no (unknown) (unknown) Current Estimate (units (unknown) date) 12/24/22 LMP unknown) (Certain) 31w 2d (unknown) (no (unknown) (unknown) Current (units (unkno wn) date) History unknown) (unknown) (no (unknown) (unknown) : 2000 (units (unknown) date) Acct:[id number] unknown) (unknown) (no (unknown) (unknown) Date of positive (units (unknown) date) home unknown) test: 04/10/22 (unknown) (no (unknown) (unknown) Date (units (unkno wn) date) unknown) (unknown) (no (unknown) (unknown) Del. Date (units (unkn own) date) GA/Weeks Labor unknown) Lgth Wt Sex Route Outcome Anesthesia Place (unknown) (no (unknown) (unknown) Delv (units (unkno wn) date) unknown) (unknown) (no (unknown) (unknown) Depression / (units (u nknown) date) anxiety is worse unknown) now, she does desire to restart medication. Rx (unknown) (no (unknown) (unknown) Depression (units (unk nown) date) unknown) (unknown) (no (unknown) (unknown) Depression: (units (un known) date) discussed unknown) (unknown) (no (unknown) (unknown) Dept at (units (unkno wn) date) . unknown) (unknown) (no (unknown) (unknown) [facility] and (units (un known) date) [facility] returns unknown) today for her FRED visit now 30+ 4 weeks (unknown) (no (unknown) (unknown) [facility] is here (units (unknown) date) for a FRED visit @ unknown) 15wk5d. She is accompanied by her (unknown) (no (unknown) (unknown) [facility] presents (units (unknown) date) for an are OB unknown) visit at 20 weeks 5 days. [facility], (unknown) (no (unknown) (unknown) [facility] returns (units (unknown) date) today for her FRED unknown) visit now at 27+ 4 weeks gestational (unknown) (no (unknown) (unknown) Diabetes (units (unkno wn) date) mellitus unknown) (unknown) (no (unknown) (unknown) Diarrhea type: (units (unknown) date) unspecified type unknown) Qualified Code(s): R19.7 - Diarrhea, (unknown) (no (unknown) (unknown) Diet and (units (unkno wn) date) Exercise unknown) (unknown) (no (unknown) (unknown) Documented By: (units (unknown) date) Chaka Flores unknown) 10/19/22 0913 (unknown) (no (unknown) (unknown) TIFFANIE Calculator (units (unknown) date) unknown) (unknown) (no (unknown) (unknown) EGA Weight BP (units ( unknown) date) UGlucose unknown) (unknown) (no (unknown) (unknown) Estimated (units (unkn own) date) Delivery Date unknown) Method Current (unknown) (no (unknown) (unknown) Expected (units (unkno wn) date) Delivery unknown) Route/Plan (unknown) (no (unknown) (unknown) Family History (units (unknown) date) (Reviewed unknown) 10/10/22 @ 21:45 by Linh Mcginnis, TAB, [employer]) (unknown) (no (unknown) (unknown) Father Diabetes (units (unknown) date) mellitus unknown) (unknown) (no (unknown) (unknown) Father of Baby: (units (unknown) date) same unknown) (unknown) (no (unknown) (unknown) [facility]) (unknown) (no (unknown) (unknown) First Trimester (units (unknown) date) Education unknown) Checklist (unknown) (no (unknown) (unknown) (all-5 week (units (unknown) date) SABs) unknown) (unknown) (no (unknown) (unknown) Genetic (units (unkno [...] practice discussed, personnel (unknown) (no (unknown) (unknown) Height 5 ft 3 in (units (unknown) date) unknown) (unknown) (no (unknown) (unknown) Hepatitis C risk (units (unknown) date) evaluation: low unknown) risk (unknown) (no (unknown) (unknown) History of (units (unk nown) date) Hepatitis B: No unknown) (unknown) (no (unknown) (unknown) History of (units (unk nown) date) Hepatitis C: No unknown) 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 (unknown) (no (unknown) (unknown) History of (units (unk nown) date) removal of skin unknown) mole (unknown) (no (unknown) (unknown) Hospital: (units (u nknown) date) unknown) (unknown) (no (unknown) (unknown) [facility], (units (unknown) date) deployed unknown) (unknown) (no (unknown) (unknown) Hx # (units (u nknown) date) Pregnancies 0 unknown) Elective abortions 0 (unknown) (no (unknown) (unknown) Hx # Term (units (unkn own) date) Pregnancies 0 unknown) Ectopic pregnancies 0 (unknown) (no (unknown) (unknown) Hyperlipidemia (units (unknown) date) unknown) (unknown) (no (unknown) (unknown) Hypertension (units (u nknown) date) unknown) (unknown) (no (unknown) (unknown) will be (units (unknown) date) adopted?: no [...] Staff unknown) (unknown) (no (unknown) (unknown) Intake Note: (units (u nknown) date) unknown) (unknown) (no (unknown) (unknown) Intake performed (units (unknown) date) by: Michele Saha unknown) (unknown) (no (unknown) (unknown) Intake (units (unkno wn) date) unknown) (unknown) (no (unknown) (unknown) LMP-TIFFANIE (units (unkno wn) date) unknown) (unknown) (no [...] (unknown) date) unknown) (unknown) (no (unknown) (unknown) May take up to 4 (units (unknown) date) doses. If unknown) contractions persist, contact provider. 10 mg PO (unknown) (no (unknown) (unknown) Medical History (units (unknown) date) (Reviewed unknown) 10/10/22 @ 21:45 by Linh Mcginnis CNM, STEVE) (unknown) (no (unknown) (unknown) Medications: (units (u nknown) date) unknown) (unknown) (no (unknown) (unknown) Mental health (units ( unknown) date) problem unknown) (unknown) (no (unknown) (unknown) Mother (units (unkno wn) date) Gestational unknown) diabetes (unknown) (no (unknown) (unknown) N Yes no 138 30 (units (unknown) date) Vertex absent unknown) 50%/CL/-3 (unknown) (no (unknown) (unknown) N Yes no 144 20 (units (unknown) date) absent 4wk unknown) (unknown) (no (unknown) (unknown) New (units (unkno wn) date) unknown) (unknown) (no (unknown) (unknown) No Known Drug (units ( unknown) date) Allergies Allergy unknown) (Verified 08/11/22 12:00) (unknown) (no (unknown) (unknown) Notes (units (unkno wn) date) unknown) (unknown) (no (unknown) (unknown) Number of Living (units (unknown) date) Children 0 unknown) (unknown) (no (unknown) (unknown) Number of (units (unkn own) date) fetuses:: Single unknown) (unknown) (no (unknown) (unknown) Nutrition and (units ( unknown) date) weight gain unknown) counseling: special diet: discussed (unknown) (no (unknown) (unknown) OB Office Visit (units (unknown) date) unknown) (unknown) (no (unknown) (unknown) OB Visit Log (units (u nknown) date) unknown) (unknown) (no (unknown) (unknown) On control (units (unknown) date) at conception?: unknown) No (unknown) (no (unknown) (unknown) Orders (units (unkno wn) date) unknown) (unknown) (no (unknown) (unknown) Orders: (units (unkno wn) date) unknown) (unknown) (no (unknown) (unknown) Other Estimates (units (unknown) date) 12/22/22 unknown) Ultrasound #1 31w 4d (unknown) (no (unknown) (unknown) Ova and Parasite (units (unknown) date) Exam 10/19/22 unknown) R19.7 - Diarrhea, unspecified (unknown) (no (unknown) (unknown) Ovarian cyst (units (u nknown) date) () unknown) (unknown) (no (unknown) (unknown) PFSH (units (unkno wn) date) unknown) (unknown) (no (unknown) (unknown) PID (acute (units (unk nown) date) pelvic unknown) inflammatory disease) (unknown) (no (unknown) (unknown) PTSD (units (unkno wn) date) (post-traumatic unknown) stress disorder) () (unknown) (no (unknown) (unknown) Para 0 (units [...] unknown) MR#: [id number] (unknown) (no (unknown) (unknown) 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: (units ( unknown) date) CHAR Garg unknown) (unknown) (no (unknown) (unknown) Personal history (units (unknown) date) of STD: other unknown) (PID (unknown bacterial agent) in 12/2021) (unknown) (no (unknown) (unknown) Personal history (units (unknown) date) of genital unknown) herpes: No (unknown) (no (unknown) (unknown) Position Sitting (units (unknown) date) unknown) (unknown) (no (unknown) (unknown) (units (unkn own) date) History unknown) (unknown) (no (unknown) (unknown) type:: (units (unknown) date) First unknown) (unknown) (no (unknown) (unknown) (units (unkno wn) date) Education unknown) (unknown) (no (unknown) (unknown) Initial (units (unknown) date) Assessment unknown) (unknown) (no (unknown) (unknown) (units (unkno wn) date) Specific unknown) Issues/Plans (unknown) (no (unknown) (unknown) (units (unkno wn) date) Testing: unknown) discussed (unknown) (no (unknown) (unknown) Visit (units (unknown) date) unknown) (unknown) (no (unknown) (unknown) (units (unkno wn) date) education packet: unknown) Child education/plan, symptoms, (unknown) (no (unknown) (unknown) Primary Care (units (u nknown) date) Provider: CHAR Puentes unknown) [place] (unknown) (no (unknown) (unknown) Primary Ob (units (unk nown) date) Provider: unknown) Tyesha Brito (unknown) (no (unknown) (unknown) Prior (units (unkno wn) date) GBS-Infected unknown) child: No (unknown) (no (unknown) (unknown) Prostate cancer (units (unknown) date) unknown) (unknown) (no (unknown) (unknown) Providers (units (unkn own) date) unknown) (unknown) (no (unknown) (unknown) Pt here for OB (units (unknown) date) Check unknown) (unknown) (no (unknown) (unknown) Q20M PRN 30 caps (units (unknown) date) 2RF cramping unknown) (unknown) (no (unknown) (unknown) Qualifiers: (units (un known) date) unknown) (unknown) (no (unknown) (unknown) Rash or viral (units ( unknown) date) illness since unknown) last menstrual period: No (unknown) (no (unknown) (unknown) Reason For Visit (units (unknown) date) unknown) (unknown) (no (unknown) (unknown) Recent travel (units ( unknown) date) outside of unknown) country?: No (unknown) (no (unknown) (unknown) Recurrent UTI (units ( unknown) date) () unknown) (unknown) (no (unknown) (unknown) Recurrent (units [...] siblings w/ autism) (unknown) (no (unknown) (unknown) Rh positive, (units (u nknown) date) will check unknown) results today, RhoGAM as needed. (unknown) (no (unknown) (unknown) Sabs x4 @5-6 (units (u nknown) date) weeks. She passed unknown) a small clot a week ago, then had BRB yesterday (unknown) (no (unknown) (unknown) Safety (units (unkno wn) date) unknown) (unknown) (no (unknown) (unknown) Schizophrenia (units ( unknown) date) unknown) (unknown) (no (unknown) (unknown) Seizures (-2003) (units (unknown) date) unknown) (unknown) (no (unknown) (unknown) Signed By: (units (unk nown) date) <Electronically unknown) signed by Chaka Flores MD> (unknown) (no (unknown) (unknown) Signed (units (unkno wn) date) unknown) (unknown) (no (unknown) (unknown) Sister Anxiety (units (unknown) date) unknown) (unknown) (no (unknown) (unknown) Sister (units (unkno wn) date) Depression unknown) (unknown) (no (unknown) (unknown) Smoking Status: (units (unknown) date) Former smoker unknown) (former vape use, quit) (unknown) (no (unknown) (unknown) Social History (units (unknown) date) unknown) (unknown) (no (unknown) (unknown) Status: Acute (units ( unknown) date) unknown) (unknown) (no (unknown) (unknown) Stool Culture (units ( unknown) date) 10/19/22 R19.7 - unknown) Diarrhea, unspecified (unknown) (no (unknown) (unknown) Support (units (unkno wn) date) Person(s):: unknown) [place] (unknown) (no (unknown) (unknown) Surgical History (units (unknown) date) (Reviewed unknown) 10/10/22 @ 21:45 by Linh Mcginnis, TAB, IND[employer]AL SEAMSTRESS) (unknown) (no (unknown) (unknown) Surrogate (units (unkn own) date) ?: no unknown) (unknown) (no (unknown) (unknown) Symptoms since (units (unknown) date) LMP: Reports unknown) amenorrhea, nausea, vomiting, fatigue, breast (unknown) (no (unknown) (unknown) TR No no 138 16 (units (unknown) date) absent 4wk unknown) (unknown) (no (unknown) (unknown) TR No no 162 12 (units (unknown) date) absent 4wk unknown) (unknown) (no (unknown) (unknown) TR Yes no 142 28 (units (unknown) date) absent 3 wks unknown) (unknown) (no (unknown) (unknown) Teratogen (units (unkn [...] (unknown) date) unknown) (unknown) (no (unknown) (unknown) Trimester:: 3rd (units (unknown) date) Trimester unknown) (28wks-Del) (unknown) (no (unknown) (unknown) Type(s) of (units (unk nown) date) exercise: walking unknown) (unknown) (no (unknown) (unknown) UProtein Movement (units (unknown) date) PreLabor FHR Fndl unknown) Ht Pres Edema Cerv Exam US/Comment Next Appt (unknown) (no (unknown) (unknown) Ultrasound (units (unk nown) date) Details:: 05/17/22 unknown) US @ [facility]: SIUP, CRL c/w 8wk5d, US-TIFFANIE 12/22/22, c/w (unknown) (no (unknown) (unknown) Ultrasound (units (unk nown) date) unknown) (unknown) (no (unknown) (unknown) Varicella/chicke (units (unknown) date) n pox status: unknown) immunized (unknown) (no (unknown) (unknown) Visit Date: (units (un known) date) 09/28/22 Last unknown) Updated by: Chaka Flores MD (unknown) (no (unknown) (unknown) Visit Date: (units (un known) date) 10/19/22 Last unknown) Updated by: Chaka Flores MD (unknown) (no (unknown) (unknown) Visit Date: (units (un known) date) 06/09/22 Last unknown) Updated by: Tyesha Brito MD (unknown) (no (unknown) (unknown) Visit Date: (units (un known) date) 07/07/22 Last unknown) Updated by: Tyesha Brito MD (unknown) (no (unknown) (unknown) Visit Date: (units (un known) date) 08/11/22 Last unknown) Updated by: Tyesha Brito MD (unknown) (no (unknown) (unknown) Visit Reasons: (units (unknown) date) OB unknown) (unknown) (no (unknown) (unknown) Vitals (units (unkno wn) date) unknown) (unknown) (no (unknown) (unknown) Vitamins and (units (u nknown) date) iron, Diet and unknown) weight gain, Fish and mercury intake, Smoking, (unknown) (no (unknown) (unknown) WG (units (unkno wn) date) unknown) (unknown) (no (unknown) (unknown) Weeks (units (unkno wn) date) gestation:: 30 unknown) (unknown) (no (unknown) (unknown) Weeks of (units (unkno wn) date) gestation: 30 unknown) weeks Qualified Code(s): Z3A.30 - 30 weeks (unknown) (no (unknown) (unknown) Weight 140 lb (units ( unknown) date) unknown) (unknown) (no (unknown) (unknown) Zika virus (units (unk nown) date) exposure: No unknown) (unknown) (no (unknown) (unknown) a lot of nausea (units (unknown) date) with emesis, may unknown) last whole day. No improvement with Unisom / (unknown) (no (unknown) (unknown) activity, X-ray (units (unknown) date) exposure, unknown) Medication use, Sauna/hot tub use, Dental care, (unknown) (no (unknown) (unknown) administer (units (unk nown) date) currently for unknown) about 30 minutes. She states she will try to get (unknown) (no (unknown) (unknown) advised her that (units (unknown) date) she should return unknown) if she felt regular contractions. She (unknown) (no (unknown) (unknown) again reviewed (units (unknown) date) and follow-up unknown) will be in 2 weeks or as needed. (unknown) (no (unknown) (unknown) age. She was (units (u nknown) date) seen on the unknown) center last night with possible leakage of fluid (unknown) (no (unknown) (unknown) alcohol intake: (units (unknown) date) never unknown) (unknown) (no (unknown) (unknown) amh (units (unkno wn) date) unknown) (unknown) (no (unknown) (unknown) anyone in either (units (unknown) date) family with: unknown) (unknown) (no (unknown) (unknown) ay occur. (units (unkn own) date) Occasional unknown) wrong-word or 'sound-alike' substitutions may have (unknown) (no (unknown) (unknown) bleeding in 1st (units (unknown) date) trimester, unknown) resolved. Reported retroplacental bleed on US @ (unknown) (no (unknown) (unknown) blood, abnormal (units (unknown) date) vaginal discharge unknown) or leakage of fluid. She is feeling routine (unknown) (no (unknown) (unknown) but AmniSure was (units (unknown) date) negative and unknown) evaluation showed no issues of concern. Review of (unknown) (no (unknown) (unknown) caffeine: Yes (units ( unknown) date) (occasionally, unknown) aware of 200mg limit) (unknown) (no (unknown) (unknown) carbon monox (units (u nknown) date) detector in home: unknown) Yes (unknown) (no (unknown) (unknown) cfDNA low risk, (units (unknown) date) girl, MSAFP unknown) normal (unknown) (no (unknown) (unknown) check today (units (un known) date) shows the cervix unknown) to be 50% effaced/closed/-3 /soft/intermediat e (unknown) (no (unknown) (unknown) cramping and/or (units (unknown) date) leakage of fluid. unknown) Workup has been negative to date. Cervical (unknown) (no (unknown) (unknown) current (units (unkno wn) date) occupational unknown) exposures/hazards : No (unknown) (no (unknown) (unknown) current plan. (units ( unknown) date) Reports she did unknown) have a suicide attempt this december, was (unknown) (no (unknown) (unknown) daily for the (units ( unknown) date) last week. unknown) Options for mitigation discussed and stool culture/O+P (unknown) (no (unknown) (unknown) daily servings (units (unknown) date) fruits/ve-4 unknown) (unknown) (no (unknown) (unknown) deployed in (units (un known) date) [place] was on unknown) video chat for the visit. She reports some increased (unknown) (no (unknown) (unknown) depression, (units (un known) date) anxiety with h/o unknown) suicide attempt 12/2021 restarted meds, Sertraline (unknown) (no (unknown) (unknown) depression, but (units (unknown) date) was trying to unknown) hold off on starting the sertraline since she (unknown) (no (unknown) (unknown) depression. (units (un known) date) Reports she unknown) currently has some suicidal thoughts but without any (unknown) (no (unknown) (unknown) described, visit (units (unknown) date) schedule unknown) reviewed, ultrasounds policy reviewed, coverage 24 (unknown) (no (unknown) (unknown) directed her to (units (unknown) date) go to ED. She unknown) reports that low-grade uterine activity, (unknown) (no (unknown) (unknown) discussed, (units (unk nown) date) tuberculosis unknown) exposure discussed, CMV discussed, Toxoplasmosis (unknown) (no (unknown) (unknown) do a Glucola (units (u nknown) date) between 26-28 unknown) weeks and we could send lab slip. Also if no care, (unknown) (no (unknown) (unknown) do you feel safe (units (unknown) date) at home: Yes unknown) (unknown) (no (unknown) (unknown) done at [facility] (units (unknown) date) health showed unknown) normal anatomy, placenta and normal cervical (unknown) (no (unknown) (unknown) duration: 15-30 (units (unknown) date) minutes/day unknown) (unknown) (no (unknown) (unknown) during the past (units (unknown) date) year weight has: unknown) other ([id number] lb) (unknown) (no (unknown) (unknown) education level: (units (unknown) date) high school unknown) (unknown) (no (unknown) (unknown) episodes where (units (unknown) date) she has had more unknown) than 5 or 6 contractions in an hour, therefore (unknown) (no (unknown) (unknown) evaluation of (units ( unknown) date) gentle unknown) endocervical sampling slide. Patient has had several (unknown) (no (unknown) (unknown) feeling (units ( unknown) date) movement yet. Her unknown) cell free DNA was low risk, girl. Remainder of (unknown) (no (unknown) (unknown) movement. (units (unknown) date) Her MSAFP was unknown) normal. Her 20 week anatomy ultrasound, (unknown) (no (unknown) (unknown) fire (units (unkno wn) date) 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 unknown) home: Yes (unknown) (no (unknown) (unknown) firearms in (units (un known) date) home: Yes unknown) firearms unloaded and locked: Yes (unknown) (no (unknown) (unknown) gestation of (units (u nknown) date) unknown) (unknown) (no (unknown) (unknown) gestational age. (units (unknown) date) She is had 2 more unknown) visits to the center regarding (unknown) (no (unknown) (unknown) grandfather (units (un known) date) today who came unknown) from [place] to stay with her through (unknown) (no (unknown) (unknown) have occurred. 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 (units ( unknown) date) Sees a Counselor. unknown) She had used both sertraline and Lexapro in (unknown) (no (unknown) (unknown) hours a day and (units (unknown) date) participation of unknown) father in care and office visits (unknown) (no (unknown) (unknown) household (units (unkn own) date) members: spouse unknown) (unknown) (no (unknown) (unknown) housing: (units (unkno wn) date) apartment unknown) (unknown) (no (unknown) (unknown) in a few weeks. (units (unknown) date) Advised her to unknown) continue with pelvic rest for now . She reports (unknown) (no (unknown) (unknown) in the area. (units (u nknown) date) Discussed trying unknown) to establish with care in [place] (unknown) (no (unknown) (unknown) irritability was (units (unknown) date) seen on the unknown) monitor but her cervix was not dilated. They (unknown) (no (unknown) (unknown) is going to lab (units (unknown) date) again today, will unknown) also try to draw her MSAFP today (our lab (unknown) (no (unknown) (unknown) jw (units (unkno wn) date) unknown) (unknown) (no (unknown) (unknown) knows moods can (units (unknown) date) worsen during unknown) . She was considering starting now (unknown) (no (unknown) (unknown) length, 3.6 cm. (units (unknown) date) She reports that unknown) she will be out of town until approximately 31 (unknown) (no (unknown) (unknown) like start of (units ( unknown) date) menses, stopped unknown) now. Seen in ED in [place] yesterday, (unknown) (no (unknown) (unknown) lives (units (unkno wn) date) independently: unknown) Yes (unknown) (no (unknown) (unknown) marital status: (units (unknown) date) unknown) (unknown) (no (unknown) (unknown) minutes x up to (units (unknown) date) 4 doses PRN unknown) increased contraction frequency but to contact the (unknown) (no (unknown) (unknown) nifedipine ER 60 (units (unknown) date) mg PO DAILY 30 unknown) tabs 4RF (unknown) (no (unknown) (unknown) nifedipine (units (unk nown) date) unknown) (unknown) (no (unknown) (unknown) nifedipine. She (units (unknown) date) has also been in unknown) experiencing diarrhea with as many as 5-6 BMs (unknown) (no (unknown) (unknown) number of (units (unkn own) date) children: 0 unknown) (unknown) (no (unknown) (unknown) occupational (units (u nknown) date) status: unknown) unemployed (unknown) (no (unknown) (unknown) occurred due to (units (unknown) date) the inherent unknown) limitations of voice recognition software. Please (unknown) (no (unknown) (unknown) of depression in (units (unknown) date) the past, unknown) re-initiation would be sensible at this point the (unknown) (no (unknown) (unknown) office or BC if (units (unknown) date) contractions unknown) don't subside promptly with initiation of PRN (unknown) (no (unknown) (unknown) ordered. Her (units (u nknown) date) baby remains unknown) active but she denies any bleeding. PTL precautions (unknown) (no (unknown) (unknown) otherwise. No (units ( unknown) date) cramping, unknown) bleeding, LOF or abnormal vaginal discharge. Not (unknown) (no (unknown) (unknown) pain. Has had a (units (unknown) date) stabbing pain unknown) about every 10 minutes, when ambulating, no pain (unknown) (no (unknown) (unknown) pets and (units (unkno wn) date) animals: Yes (1 unknown) dog 1 cat; aware of toxo) (unknown) (no (unknown) (unknown) placenta. She is (units (unknown) date) understandably unknown) very nervous. Ultrasound today shows viable 11 (unknown) (no (unknown) (unknown) position. No (units (u nknown) date) fluid in unknown) posterior fornix today and no ferning can be detected on (unknown) (no (unknown) (unknown) precautions, (units (u nknown) date) Listeriosis unknown) prevention and Rubella Immunization (unknown) (no (unknown) (unknown) will (units (unknown) date) still proceed unknown) normally, with retroplacental blood resolving Will (unknown) (no (unknown) (unknown) . Her (units (unknown) date) baby remains unknown) active but she denies contractions, bleeding, or (unknown) (no (unknown) (unknown) labs (units ( unknown) date) were not drawn as unknown) they could not get enough blood with small (unknown) (no (unknown) (unknown) read the note (units ( unknown) date) carefully and unknown) recognize, using context, where these substitutions (unknown) (no (unknown) (unknown) reassured that (units ( unknown) date) there was no unknown) significant risk to the infant and given her history (unknown) (no (unknown) (unknown) reports she has (units (unknown) date) not had any unknown) persistent cramping since. Denies spotting of (unknown) (no (unknown) (unknown) reports (units (unkno wn) date) ultrasound showed unknown) baby with heartbeat, and blood seen behind the (unknown) (no (unknown) (unknown) screen if (units (unkn own) date) covered. For cell unknown) free DNA with labs today. Believe she is (unknown) (no (unknown) (unknown) screen) (units (unkno wn) date) unknown) (unknown) (no (unknown) (unknown) seatbelt use: (units ( unknown) date) always unknown) (unknown) (no (unknown) (unknown) second hand (units (un known) date) exposure: Yes unknown) (while visiting family (mom smokes)) (unknown) (no (unknown) (unknown) send for the 11 (units (unknown) date) wk US; if areas unknown) seen was large, then will repeat the ultrasound (unknown) (no (unknown) (unknown) sertraline. (units (un known) date) Desires unknown) aneuploidy/ NTD screening, desires cell free DNA assay (unknown) (no (unknown) (unknown) significant (units (un known) date) change in vaginal unknown) discharge. 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 She unknown) reports what sounds like left round ligament (unknown) (no (unknown) (unknown) software. (units (unkn own) date) Although every unknown) effort is made to edit content, regulatory technician errors m (unknown) (no (unknown) (unknown) special mirella (units ( unknown) date) needs: No unknown) (unknown) (no (unknown) (unknown) started (units (unkno wn) date) sertraline but unknown) intends to do so in the next couple of days. Patient (unknown) (no (unknown) (unknown) substance use (units ( unknown) date) type: marijuana unknown) (quit when she learned she was ) (unknown) (no (unknown) (unknown) tenderness, (units (un known) date) urinary unknown) frequency, irritability, bloating and other (heartburn) (unknown) (no (unknown) (unknown) the past with (units ( unknown) date) both helping. unknown) Most recently on Lexapro which she stopped about 2 (unknown) (no (unknown) (unknown) though before (units ( unknown) date) traveling. I unknown) encouraged her to start the sertraline now. About 2 (unknown) (no (unknown) (unknown) though she is (units ( unknown) date) traveling unknown) shortly. Otherwise to try to find a lab where she can (unknown) (no (unknown) (unknown) through (units (unkno wn) date) pharmacy. unknown) (unknown) (no (unknown) (unknown) to buy one. (units (un known) date) Discussed flu unknown) vaccination, she desires but we had no one to (unknown) (no (unknown) (unknown) to get her blood (units (unknown) date) pressure checked unknown) in about a month if anyone has a BP cuff, or (unknown) (no (unknown) (unknown) travel history: (units (unknown) date) recent (domestic unknown) only) (unknown) (no (unknown) (unknown) ultrasound for (units (unknown) date) 20 weeks. unknown) (unknown) (no (unknown) (unknown) unspecified (units (un known) date) unknown) (unknown) (no (unknown) (unknown) usually does at (units (unknown) date) 16 weeks onward, unknown) so she is a day early). Schedule anatomy (unknown) (no (unknown) (unknown) veins. She (units (unk nown) date) reports 2 unknown) additional attempts at blood draws without success. She (unknown) (no (unknown) (unknown) water heater (units (u nknown) date) temp set < 120 unknown) deg: No (Will call landlord to adjust ) (unknown) (no (unknown) (unknown) week (units (unknown) date) ,? area of unknown) retroplacental blood. I reassured her that commonly (unknown) (no (unknown) (unknown) weeks ago she (units ( unknown) date) called with unknown) persistent bad cramping when in [place] and I (unknown) (no (unknown) (unknown) weeks prior to (units (unknown) date) positive unknown) test, having a feeling she may be . (unknown) (no (unknown) (unknown) weeks, in (units (unkn own) date) [place] with unknown) in loss for about 6 weeks, then 1.5-2 weeks in (unknown) (no (unknown) (unknown) well-balanced (units ( unknown) date) diet: daily or unknown) most days (unknown) (no (unknown) (unknown) will be drawn (units ( unknown) date) today along with unknown) her 1 hour GDM screen H+H. Patient has not yet (unknown) (no (unknown) (unknown) will be in 3 (units (u nknown) date) weeks or as unknown) needed. (unknown) (no (unknown) (unknown) will initiate (units ( unknown) date) daily nifedipine unknown) 60 mg and patient advised to take 10 mg PO q 20 (unknown) (no (unknown) (unknown) working smoke (units ( unknown) date) detector in home: unknown) Yes Result panel [id number] (unknown) (no (unknown) (unknown) (no value) (units (unk nown) date) unknown) (unknown) (no (unknown) (unknown) (1) Decreased (units ( unknown) date) movement unknown) affecting management of in third (unknown) (no (unknown) (unknown) (past 8 hours): (units (unknown) date) unknown) (unknown) (no (unknown) (unknown) 10/28/22 1502 (units ( unknown) date) unknown) (unknown) (no (unknown) (unknown) [id number] (units (unkno wn) date) unknown) (unknown) (no (unknown) (unknown) 22YO @ (units (un known) date) [id number] here for unknown) evaluation of decreased movement. 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 (units (unk nown) date) unknown) (unknown) (no (unknown) (unknown) Anxiety (units (unkno wn) date) unknown) (unknown) (no (unknown) (unknown) Autism (units (unkno wn) date) unknown) (unknown) (no (unknown) (unknown) BP 99/58, HR (units (u nknown) date) 99bpm, RR 18, T unknown) 98.0 (unknown) (no (unknown) (unknown) Baseline (units (unknown) date) heart rate: 138 unknown) (unknown) (no (unknown) (unknown) Bipolar disorder (units (unknown) date) unknown) (unknown) (no (unknown) (unknown) Brother Anxiety (units (unknown) date) unknown) (unknown) (no (unknown) (unknown) Cancer (units (unkno wn) date) unknown) (unknown) (no (unknown) (unknown) Comments/Additio (units (unknown) date) nal reasons for unknown) admission: (unknown) (no (unknown) (unknown) Comments: (units (unkn own) date) unknown) (unknown) (no (unknown) (unknown) Continue PTL (units (u nknown) date) precautions w/ unknown) daily nifedipine 60 mg and 10 mg PO q 20 minutes x (unknown) (no (unknown) (unknown) : 2000 (units (unknown) date) Acct:[id number] unknown) (unknown) (no (unknown) (unknown) Date of Service: (units (unknown) date) 10/27/22 unknown) (unknown) (no (unknown) (unknown) Date of (units (unkno wn) date) evaluation: unknown) 10/27/22 (unknown) (no (unknown) (unknown) Depression (units (unk nown) date) unknown) (unknown) (no (unknown) (unknown) Diabetes (units (unkno wn) date) mellitus unknown) (unknown) (no (unknown) (unknown) Diagnosis, (units (unk nown) date) Plan/Disposition unknown) (unknown) (no (unknown) (unknown) Evaluation (units (unk nown) date) unknown) (unknown) (no (unknown) (unknown) Exam (units (unkno wn) date) unknown) (unknown) (no (unknown) (unknown) Family History (units (unknown) date) (Reviewed unknown) 10/10/22 @ 21:45 by Linh Mcginnis CNM, STEVE) (unknown) (no (unknown) (unknown) Father Diabetes (units (unknown) date) mellitus unknown) (unknown) (no (unknown) (unknown) Monitor (units ( unknown) date) Decelerations: unknown) Absent (unknown) (no (unknown) (unknown) monitor (units ( unknown) date) accelerations: unknown) Present (unknown) (no (unknown) (unknown) Final Diagnosis (units (unknown) date) unknown) (unknown) (no (unknown) (unknown) Grandfather (units (un known) date) Diabetes mellitus unknown) (unknown) (no (unknown) (unknown) Grandfather (units (un known) date) Family unknown) estrangement (unknown) (no (unknown) (unknown) Grandmother (units (un known) date) Cancer unknown) (unknown) (no (unknown) (unknown) Grandmother (units (un known) date) Diabetes unknown) mellitus (unknown) (no (unknown) (unknown) H/O hand surgery (units (unknown) date) unknown) 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 (unknown) (no (unknown) (unknown) History of (units (unk nown) date) removal of skin unknown) mole (unknown) (no (unknown) (unknown) Hyperlipidemia (units (unknown) date) unknown) (unknown) (no (unknown) (unknown) Hypertension (units (u nknown) date) unknown) (unknown) (no (unknown) (unknown) [facility] (units (unknown) date) [address] unknown) [place] [address] (unknown) (no (unknown) (unknown) Labor and (units (unkn own) date) Delivery Triage unknown) Note (unknown) (no (unknown) (unknown) Lung cancer (units (un known) date) unknown) (unknown) (no (unknown) (unknown) Medical History (units (unknown) date) (Reviewed unknown) 10/10/22 @ 21:45 by Linh Mcginnis CNM, [employer]) (unknown) (no (unknown) (unknown) Mental health (units ( unknown) date) problem unknown) (unknown) (no (unknown) (unknown) Mother (units (unkno wn) date) Gestational unknown) diabetes (unknown) (no (unknown) (unknown) No contractions. (units (unknown) date) CE deferred. unknown) (unknown) (no (unknown) (unknown) OB Disposition: (units (unknown) date) home unknown) (unknown) (no (unknown) (unknown) On-call OB (units (unk nown) date) Provider: Chelsy unknown) [place] Johns (unknown) (no (unknown) (unknown) Ovarian cyst (units (u nknown) date) () unknown) (unknown) (no (unknown) (unknown) PFSH (units (unkno wn) date) unknown) (unknown) (no (unknown) (unknown) PID (acute (units (unk nown) date) pelvic unknown) inflammatory disease) (unknown) (no (unknown) (unknown) PTSD (units (unkno wn) date) (post-traumatic unknown) stress disorder) () (unknown) (no (unknown) (unknown) Patient: (units (unkno wn) date) [facility] N unknown) MR#: [id number] (unknown) (no (unknown) (unknown) Plan/Disposition (units (unknown) date) unknown) (unknown) (no (unknown) (unknown) Plan: (units (unkno wn) date) unknown) (unknown) (no (unknown) (unknown) Primary OB (units (unk nown) date) Provider: Chaka Flores (unknown) (no (unknown) (unknown) Prostate cancer (units (unknown) date) unknown) (unknown) (no (unknown) (unknown) Provider: (units (unkn own) date) Alondra Johns unknown) ivonne T C.N.M. (unknown) (no (unknown) (unknown) RTC as (units (unkno wn) date) previously unknown) scheduled. 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 (unknown) (no (unknown) (unknown) Schizophrenia (units ( unknown) date) unknown) (unknown) (no (unknown) (unknown) Seizures (-2003) (units (unknown) date) unknown) (unknown) (no (unknown) (unknown) Signed (units (unkno wn) date) By:<Electronicall unknown) y signed by Lisseth FunesNAdolfo> (unknown) (no (unknown) (unknown) Sister Anxiety (units (unknown) date) unknown) (unknown) (no (unknown) (unknown) Sister (units (unkno wn) date) Depression unknown) (unknown) (no (unknown) (unknown) Smoking Status: (units (unknown) date) Former smoker unknown) (former vape use, quit) (unknown) (no (unknown) (unknown) Social History (units (unknown) date) (Reviewed unknown) 10/10/22 @ 21:45 by Linh Mcginnis CNM, STEVE) (unknown) (no (unknown) (unknown) Status: Acute (units ( unknown) date) unknown) (unknown) (no (unknown) (unknown) Surgical History (units (unknown) date) (Reviewed unknown) 10/10/22 @ 21:45 by Linh Mcginnis CNM, STEVE) (unknown) (no (unknown) (unknown) Type(s) of (units (unk nown) date) exercise: walking unknown) (unknown) (no (unknown) (unknown) Variability: (units (u nknown) date) Moderate (11-25) unknown) (unknown) (no (unknown) (unknown) Visit (units (unkno wn) date) Information unknown) (unknown) (no (unknown) (unknown) Vital Signs (units (un known) date) unknown) (unknown) (no (unknown) (unknown) Vital Signs: (units (u nknown) date) unknown) (unknown) (no (unknown) (unknown) alcohol intake: (units (unknown) date) never unknown) (unknown) (no (unknown) (unknown) but now not (units (un known) date) feeling much unknown) movement and is worried. Also feeling occasional (unknown) (no (unknown) (unknown) caffeine: Yes (units ( unknown) date) (occasionally, unknown) aware of 200mg limit) (unknown) (no (unknown) (unknown) carbon monox (units (u nknown) date) detector in home: unknown) Yes (unknown) (no (unknown) (unknown) cervical pain (units ( unknown) date) with reassurance unknown) of normal. Reviewed warning sx and when to call. (unknown) (no (unknown) (unknown) current (units (unkno [...] (unknown) date) year weight has: unknown) other ([id number] lb) (unknown) (no (unknown) (unknown) education level: (units (unknown) date) high school unknown) (unknown) (no (unknown) (unknown) feeling more (units (u nknown) date) cramping today unknown) and took 3 additional doses of nifedipine. Then (unknown) (no (unknown) (unknown) felt a little (units ( unknown) date) dizzy and like unknown) her heart was racing. contractions have slowed, (unknown) (no (unknown) (unknown) movement (units (unknown) date) unknown) (unknown) (no (unknown) (unknown) fire (units (unkno wn) date) 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 unknown) home: Yes (unknown) (no (unknown) (unknown) firearms in (units (un known) date) home: Yes unknown) firearms unloaded and locked: Yes (unknown) (no (unknown) (unknown) household (units (unkn own) date) members: spouse unknown) (unknown) (no (unknown) (unknown) housing: (units (unkno wn) date) apartment unknown) (unknown) (no (unknown) (unknown) if contractions (units (unknown) date) don't subside unknown) promptly with initiation of PRN (unknown) (no (unknown) (unknown) lives (units (unkno wn) date) independently: unknown) Yes (unknown) (no (unknown) (unknown) marital status: (units (unknown) date) unknown) (unknown) (no (unknown) (unknown) nifedipine.?Reas (units (unknown) date) surance given for unknown) reactive NST. ?RN counseled patient on likely (unknown) (no (unknown) (unknown) number of (units (unkn own) date) children: 0 unknown) (unknown) (no (unknown) (unknown) occupational (units (u nknown) date) status: unknown) unemployed (unknown) (no (unknown) (unknown) or leaking of (units ( unknown) date) fluid. unknown) (unknown) (no (unknown) (unknown) pets and (units (unkno wn) date) animals: Yes (1 unknown) dog 1 cat; aware of toxo) (unknown) (no (unknown) (unknown) seatbelt use: (units ( unknown) date) always unknown) (unknown) (no (unknown) (unknown) second hand (units (un known) date) exposure: Yes unknown) (while visiting family (mom smokes)) (unknown) (no (unknown) (unknown) see below (units (unkn own) date) unknown) (unknown) (no (unknown) (unknown) special mirella (units ( unknown) date) needs: No unknown) (unknown) (no (unknown) (unknown) stabbing pain, (units (unknown) date) low in her pelvis unknown) and wondering what it is. No vaginal bleeding (unknown) (no (unknown) (unknown) substance use (units ( unknown) date) type: marijuana unknown) (quit when she learned she was ) (unknown) (no (unknown) (unknown) travel history: (units (unknown) date) recent (domestic unknown) only) (unknown) (no (unknown) (unknown) trimester: (units (unk nown) date) unknown) (unknown) (no (unknown) (unknown) up to 4 doses (units ( unknown) date) PRN increased unknown) contraction frequency AND contact the office or BC (unknown) (no (unknown) (unknown) water heater (units (u nknown) date) temp set < 120 unknown) deg: No (Will call landlord to adjust ) (unknown) (no (unknown) (unknown) well-balanced (units ( unknown) date) diet: daily or unknown) most days (unknown) (no (unknown) (unknown) working smoke (units ( unknown) date) detector in home: unknown) Yes Result panel [id number] (unknown) (no (unknown) (unknown) (no value) (units (unk nown) date) unknown) (unknown) (no (unknown) (unknown) (+14 lb) 98/66 N (units (unknown) date) unknown) (unknown) (no (unknown) (unknown) (+15 lb) 98/62 N (units (unknown) date) unknown) (unknown) (no (unknown) (unknown) (+6 lb) 104/68 N (units (unknown) date) unknown) (unknown) (no (unknown) (unknown) (-2 lb) 108/60 N (units (unknown) date) unknown) (unknown) (no (unknown) (unknown) (-4 lb) 100/70 N (units (unknown) date) unknown) (unknown) (no (unknown) (unknown) Genetic (units (unkn own) date) Screening/Teratol unknown) ogy Counseling - Includes patient, baby's father, or (unknown) (no (unknown) (unknown) -?-?-?-?-?-?-?-? (units (unknown) date) -?-?-?-? unknown) (unknown) (no (unknown) (unknown) 09/28/22 (units (unkno wn) date) unknown) (unknown) (no (unknown) (unknown) 10/19/22 (units (unkno wn) date) unknown) (unknown) (no (unknown) (unknown) 10/26/21 6 (units (unk nown) date) spontaneous unknown) (unknown) (no (unknown) (unknown) 10/27/20 5 (units (unk nown) date) spontaneous unknown) (unknown) (no (unknown) (unknown) 11/03/22 (units (unkno wn) date) unknown) (unknown) (no (unknown) (unknown) 11/03/22] (units (unkn own) date) unknown) (unknown) (no (unknown) (unknown) [id number] (units (unkno wn) date) unknown) (unknown) (no (unknown) (unknown) 01/26/22 5 (units (unk nown) date) spontaneous unknown) (unknown) (no (unknown) (unknown) 09:21 (units (unkno wn) date) unknown) (unknown) (no (unknown) (unknown) 06/09/22 (units (unkno wn) date) unknown) (unknown) (no (unknown) (unknown) 06/29/20 5 (units (unk nown) date) spontaneous unknown) (unknown) (no (unknown) (unknown) 07/07/22 (units (unkno wn) date) unknown) (unknown) (no (unknown) (unknown) 11w 5d 123 lb (units ( unknown) date) unknown) (unknown) (no (unknown) (unknown) 08/11/22 (units (unkno wn) date) unknown) (unknown) (no (unknown) (unknown) 15w 5d 121 lb (units ( unknown) date) unknown) (unknown) (no (unknown) (unknown) 21 yo here (units (unknown) date) for IOB visit unknown) @11wk5d. An 8 week US was c/w LMP-TIFFANIE. H/o (unknown) (no (unknown) (unknown) 2 wks (units (unkno wn) date) unknown) (unknown) (no (unknown) (unknown) 20w 5d 131 lb (units ( unknown) date) unknown) (unknown) (no (unknown) (unknown) 27w 4d 139 lb (units ( unknown) date) unknown) (unknown) (no (unknown) (unknown) 30w 4d 140 lb (units ( unknown) date) unknown) (unknown) (no (unknown) (unknown) @ 12wks--did not (units (unknown) date) start yet @ 20 unknown) weeks, was going to re-start (unknown) (no (unknown) (unknown) ADHD (units (unkno wn) date) unknown) (unknown) (no (unknown) (unknown) Abnormal lab (units (u nknown) date) values 1st unknown) trimester: discussed (unknown) (no (unknown) (unknown) Acne (units (unkno wn) date) unknown) (unknown) (no (unknown) (unknown) Add'l Plan (units (unk nown) date) Details unknown) (unknown) (no (unknown) (unknown) Age/Sex: 22 / F (units (unknown) date) Date of Service: unknown) (unknown) (no (unknown) (unknown) Allergies (units (unkn own) date) unknown) (unknown) (no (unknown) (unknown) [place], [place] (units ( unknown) date) [id number] unknown) (unknown) (no (unknown) (unknown) Anemia (-2020) (units (unknown) date) unknown) (unknown) (no (unknown) (unknown) Anesthesia (units (unk nown) date) unknown) (unknown) (no (unknown) (unknown) Aneuploidy (units (unk nown) date) Screening unknown) Offered: Accepted (undecided, will probably get quad (unknown) (no (unknown) (unknown) Anticipate , (units (unknown) date) [facility] unknown) (unknown) (no (unknown) (unknown) Anticipated (units (un known) date) course of unknown) care: discussed (unknown) (no (unknown) (unknown) Anxiety (units (unkno wn) date) unknown) (unknown) (no (unknown) (unknown) Assessment and (units (unknown) date) Plan unknown) (unknown) (no (unknown) (unknown) Attending Dr: (units ( unknown) date) Tony Carlton MD unknown) (unknown) (no (unknown) (unknown) Autism (units (unkno wn) date) unknown) (unknown) (no (unknown) (unknown) B6. On review of (units (unknown) date) options she unknown) desires Zofran, Rx sent. History of severe (unknown) (no (unknown) (unknown) BMI 25.8 (units (unkno wn) date) unknown) (unknown) (no (unknown) (unknown) BP 92/68 (units (unkno wn) date) unknown) (unknown) (no (unknown) (unknown) Bipolar disorder (units (unknown) date) unknown) (unknown) (no (unknown) (unknown) (units (unkno wn) date) Plan/Preferences unknown) (unknown) (no (unknown) (unknown) Planning (units (unknown) date) unknown) (unknown) (no (unknown) (unknown) Blood Pressure (units (unknown) date) Location Rt unknown) brachial (unknown) (no (unknown) (unknown) Blood (units (unkno wn) date) transfusions?: unknown) yes (Never had but would accept) (unknown) (no (unknown) (unknown) Breastfeed Preg (units (unknown) date) Comp Name unknown) (unknown) (no (unknown) (unknown) Brother Anxiety (units (unknown) date) unknown) (unknown) (no (unknown) (unknown) Caffeine use, (units ( unknown) date) Exercise and unknown) activity, work/environmenta l/hazards, Sexual (unknown) (no (unknown) (unknown) [place] with (units (unknown) date) her grandfather. unknown) Appears grandfather's no longer here with her (unknown) (no (unknown) (unknown) Cancer (units (unkno wn) date) unknown) (unknown) (no (unknown) (unknown) Childbirth (units (unk nown) date) Classes: unknown) discussed (unknown) (no (unknown) (unknown) Confirmed (units (unkn own) date) 11/03/22] unknown) (unknown) (no (unknown) (unknown) [facility]. (units (unknown) date) 20 week US normal unknown) (unknown) (no (unknown) (unknown) Current Estimate (units (unknown) date) 12/24/22 LMP unknown) (Certain) 32w 5d (unknown) (no (unknown) (unknown) Current (units (unkno wn) date) History unknown) (unknown) (no (unknown) (unknown) : 2000 (units (unknown) date) Acct:[id number] unknown) (unknown) (no (unknown) (unknown) Date of positive (units (unknown) date) home unknown) test: 04/10/22 (unknown) (no (unknown) (unknown) Date (units (unkno wn) date) unknown) (unknown) (no (unknown) (unknown) Del. Date (units (unkn own) date) GA/Weeks Labor unknown) Lgth Wt Sex Route Outcome Anesthesia Place (unknown) (no (unknown) (unknown) Delv (units (unkno wn) date) unknown) (unknown) (no (unknown) (unknown) Depression / (units (u nknown) date) anxiety is worse unknown) now, she does desire to restart medication. Rx (unknown) (no (unknown) (unknown) Depression (units (unk nown) date) unknown) (unknown) (no (unknown) (unknown) Depression: (units (un known) date) discussed unknown) (unknown) (no (unknown) (unknown) Dept at (units (unkno wn) date) . unknown) (unknown) (no (unknown) (unknown) [facility] and (units (un known) date) [place] returns unknown) today for her FRED visit now 30+ 4 weeks (unknown) (no (unknown) (unknown) [facility] is here (units (unknown) date) for a FRED visit @ unknown) 15wk5d. She is accompanied by her (unknown) (no (unknown) (unknown) [facility] presents (units (unknown) date) for an are OB unknown) visit at 20 weeks 5 days. [place], (unknown) (no (unknown) (unknown) [facility] returns (units (unknown) date) today for her FRED unknown) visit now at 27+ 4 weeks gestational (unknown) (no (unknown) (unknown) Diabetes (units (unkno wn) date) mellitus unknown) (unknown) (no (unknown) (unknown) Diet and (units (unkno wn) date) Exercise unknown) (unknown) (no (unknown) (unknown) Documented By: (units (unknown) date) Tony Carlton MD unknown) 11/03/22 0919 (unknown) (no (unknown) (unknown) Draft (units (unkno wn) date) unknown) (unknown) (no (unknown) (unknown) TIFFANIE Calculator (units (unknown) date) unknown) (unknown) (no (unknown) (unknown) EGA Weight BP (units ( unknown) date) UGlucose unknown) (unknown) (no (unknown) (unknown) Estimated (units (unkn own) date) Delivery Date unknown) Method Current (unknown) (no (unknown) (unknown) Expected (units (unkno wn) date) Delivery unknown) Route/Plan (unknown) (no (unknown) (unknown) Family History (units (unknown) date) (Reviewed unknown) 10/10/22 @ 21:45 by Linh Mcginnis, TAB, STEVE) (unknown) (no (unknown) (unknown) Father Diabetes (units (unknown) date) mellitus unknown) (unknown) (no (unknown) (unknown) Father of Baby: (units (unknown) date) same unknown) (unknown) (no (unknown) (unknown) [facility] unknown) (unknown) (no (unknown) (unknown) First Trimester (units (unknown) date) Education unknown) Checklist (unknown) (no (unknown) (unknown) (all-5 week (units (unknown) date) SABs) unknown) (unknown) (no (unknown) (unknown) Genetic (units (unkno [...] practice discussed, personnel (unknown) (no (unknown) (unknown) Height 5 ft 3 in (units (unknown) date) unknown) (unknown) (no (unknown) (unknown) Hepatitis C risk (units (unknown) date) evaluation: low unknown) risk (unknown) (no (unknown) (unknown) History of (units (unk nown) date) Hepatitis B: No unknown) (unknown) (no (unknown) (unknown) History of (units (unk nown) date) Hepatitis C: No unknown) 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 (unknown) (no (unknown) (unknown) History of (units (unk nown) date) removal of skin unknown) mole (unknown) (no (unknown) (unknown) [facility] (units (u [facility]known) [facility]) [facility]) (unknown) (no (unknown) (unknown) [place], (units (unknown) date) deployed unknown) (unknown) (no (unknown) (unknown) Hx # (units (u nknown) date) Pregnancies 0 unknown) Elective abortions 0 (unknown) (no (unknown) (unknown) Hx # Term (units (unkn own) date) Pregnancies 0 unknown) Ectopic pregnancies 0 (unknown) (no (unknown) (unknown) Hyperlipidemia (units (unknown) date) unknown) (unknown) (no (unknown) (unknown) Hypertension (units (u nknown) date) unknown) (unknown) (no (unknown) (unknown) will be (units (unknown) date) adopted?: no [...] Staff unknown) (unknown) (no (unknown) (unknown) Intake Note: (units (u nknown) date) unknown) (unknown) (no (unknown) (unknown) Intake performed (units (unknown) date) by: Michele Saha unknown) (unknown) (no (unknown) (unknown) Intake (units (unkno wn) date) unknown) (unknown) (no (unknown) (unknown) LMP-TIFFANIE (units (unkno wn) date) unknown) (unknown) (no [...] (unknown) (unknown) Medical History (units (unknown) date) (Reviewed unknown) 10/10/22 @ 21:45 by Linh Mcginnis, TAB, STEVE) (unknown) (no (unknown) (unknown) Medications (units (un known) date) unknown) (unknown) (no (unknown) (unknown) Mental health (units ( unknown) date) problem unknown) (unknown) (no (unknown) (unknown) Mother (units (unkno wn) date) Gestational unknown) diabetes (unknown) (no (unknown) (unknown) N Yes no 138 30 (units (unknown) date) Vertex absent unknown) 50%/CL/-3 (unknown) (no (unknown) (unknown) N Yes no 144 20 (units (unknown) date) absent 4wk unknown) (unknown) (no (unknown) (unknown) No Known Drug (units ( unknown) date) Allergies Allergy unknown) (Verified 11/03/22 09:20) (unknown) (no (unknown) (unknown) Notes (units (unkno wn) date) unknown) (unknown) (no (unknown) (unknown) Number of Living (units (unknown) date) Children 0 unknown) (unknown) (no (unknown) (unknown) Number of (units (unkn own) date) fetuses:: Single unknown) (unknown) (no (unknown) (unknown) Nutrition and (units ( unknown) date) weight gain unknown) counseling: special diet: discussed (unknown) (no (unknown) (unknown) OB Office Visit (units (unknown) date) unknown) (unknown) (no (unknown) (unknown) OB Visit Log (units (u nknown) date) unknown) (unknown) (no (unknown) (unknown) On control (units (unknown) date) at conception?: unknown) No (unknown) (no (unknown) (unknown) Other Estimates (units (unknown) date) 12/22/22 unknown) Ultrasound #1 33w 0d (unknown) (no (unknown) (unknown) Ovarian cyst (units (u nknown) date) () unknown) (unknown) (no (unknown) (unknown) PFSH (units (unkno wn) date) unknown) (unknown) (no (unknown) (unknown) PID (acute (units (unk nown) date) pelvic unknown) inflammatory disease) (unknown) (no (unknown) (unknown) PTSD (units (unkno wn) date) (post-traumatic unknown) stress disorder) () (unknown) (no (unknown) (unknown) Para 0 (units [...] (unknown) (unknown) Patient: (units (unkno wn) date) Blane,Piper N unknown) MR#: [id number] (unknown) (no (unknown) (unknown) 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: (units ( unknown) date) CHAR Garg unknown) (unknown) (no (unknown) (unknown) Personal history (units (unknown) date) of STD: other unknown) (PID (unknown bacterial agent) in 12/2021) (unknown) (no (unknown) (unknown) Personal history (units (unknown) date) of genital unknown) herpes: No (unknown) (no (unknown) (unknown) Position Sitting (units (unknown) date) unknown) (unknown) (no (unknown) (unknown) (units (unkn own) date) History unknown) (unknown) (no (unknown) (unknown) type:: (units (unknown) date) First unknown) (unknown) (no (unknown) (unknown) (units (unkno wn) date) Education unknown) (unknown) (no (unknown) (unknown) Initial (units (unknown) date) Assessment unknown) (unknown) (no (unknown) (unknown) (units (unkno wn) date) Specific unknown) Issues/Plans (unknown) (no (unknown) (unknown) (units (unkno wn) [...] own) date) unknown) (unknown) (no (unknown) (unknown) Pt here for OB (units (unknown) date) Check unknown) (unknown) (no (unknown) (unknown) Rash or viral (units ( unknown) date) illness since unknown) last menstrual period: No (unknown) (no (unknown) (unknown) Reason For Visit (units (unknown) date) unknown) (unknown) (no (unknown) (unknown) Recent travel (units ( unknown) date) outside of unknown) country?: No (unknown) (no (unknown) (unknown) Recurrent UTI (units ( unknown) date) () unknown) (unknown) (no (unknown) (unknown) Recurrent (units [...] siblings w/ autism) (unknown) (no (unknown) (unknown) Rh positive, (units (u nknown) date) will check unknown) results today, RhoGAM as needed. (unknown) (no (unknown) (unknown) Sabs x4 @5-6 (units (u nknown) date) weeks. She passed unknown) a small clot a week ago, then had BRB yesterday (unknown) (no (unknown) (unknown) Safety (units (unkno wn) date) unknown) (unknown) (no (unknown) (unknown) Schizophrenia (units ( unknown) date) unknown) (unknown) (no (unknown) (unknown) Seizures (-2002) (units (unknown) date) unknown) (unknown) (no (unknown) [...] (unknown) (unknown) Surgical History (units (unknown) date) (Reviewed unknown) 10/10/22 @ 21:45 by Linh Mcginnis, TAB, STEVE) (unknown) (no (unknown) (unknown) Surrogate (units (unkn own) date) ?: no unknown) (unknown) (no (unknown) (unknown) Symptoms since (units (unknown) date) LMP: Reports unknown) amenorrhea, nausea, vomiting, fatigue, breast (unknown) (no (unknown) (unknown) TR No no 138 16 (units (unknown) date) absent 4wk unknown) (unknown) (no (unknown) (unknown) TR No no 162 12 (units (unknown) date) absent 4wk unknown) (unknown) (no (unknown) (unknown) TR Yes no 142 28 (units (unknown) date) absent 3 wks unknown) (unknown) (no (unknown) (unknown) Teratogen (units (unkn [...] (unknown) date) unknown) (unknown) (no (unknown) (unknown) Trimester:: 3rd (units (unknown) date) Trimester unknown) (28wks-Del) (unknown) (no (unknown) (unknown) Type(s) of (units (unk nown) date) exercise: walking unknown) (unknown) (no (unknown) (unknown) UProtein Movement (units (unknown) date) PreLabor FHR Fndl unknown) Ht Pres Edema Cerv Exam US/Comment Next Appt (unknown) (no (unknown) (unknown) Ultrasound (units (unk nown) date) Details:: 05/17/22 unknown) [facility]: [facility], CRL c/w 8wk5d, US-TIFFANIE 12/22/22, c/w (unknown) (no (unknown) (unknown) Ultrasound (units (unk nown) date) unknown) (unknown) (no (unknown) (unknown) Varicella/chicke (units (unknown) date) n pox status: unknown) immunized (unknown) (no (unknown) (unknown) Visit Date: (units (un known) date) 09/28/22 Last unknown) Updated by: Chaka Flores MD (unknown) (no (unknown) (unknown) Visit Date: (units (un known) date) 10/19/22 Last unknown) Updated by: Chaka Flores MD (unknown) (no (unknown) (unknown) Visit Date: (units (un known) date) 06/09/22 Last unknown) Updated by: Teysha Brito MD (unknown) (no (unknown) (unknown) Visit Date: (units (un known) date) 07/07/22 Last unknown) Updated by: Tyesha Brito MD (unknown) (no (unknown) (unknown) Visit Date: (units (un known) date) 08/11/22 Last unknown) Updated by: Tyesha Brito MD (unknown) (no (unknown) (unknown) Visit Reasons: (units (unknown) date) OB * nithya unknown) (unknown) (no (unknown) (unknown) Vitals (units (unkno wn) date) unknown) (unknown) (no (unknown) (unknown) Vitamins and (units (u nknown) date) iron, Diet and unknown) weight gain, Fish and mercury intake, Smoking, (unknown) (no (unknown) (unknown) WG (units (unkno wn) date) unknown) (unknown) (no (unknown) (unknown) Weeks (units (unkno wn) date) gestation:: 32 unknown) (unknown) (no (unknown) (unknown) Weight 146 lb (units ( unknown) date) unknown) (unknown) (no (unknown) (unknown) Zika virus (units (unk nown) date) exposure: No unknown) (unknown) (no (unknown) (unknown) a lot of nausea (units (unknown) date) with emesis, may unknown) last whole day. No improvement with Unisom / (unknown) (no (unknown) (unknown) activity, X-ray (units (unknown) date) exposure, unknown) Medication use, Sauna/hot tub use, Dental care, (unknown) (no (unknown) (unknown) administer (units (unk nown) date) currently for unknown) about 30 minutes. She states she will try to get (unknown) (no (unknown) (unknown) advised her that (units (unknown) date) she should return unknown) if she felt regular contractions. She (unknown) (no (unknown) (unknown) again reviewed (units (unknown) date) and follow-up unknown) will be in 2 weeks or as needed. (unknown) (no (unknown) (unknown) age. She was (units (u nknown) date) seen on the unknown) center last night with possible leakage of fluid (unknown) (no (unknown) (unknown) alcohol intake: (units (unknown) date) never unknown) (unknown) (no (unknown) (unknown) amh (units (unkno wn) date) unknown) (unknown) (no (unknown) (unknown) anyone in either (units (unknown) date) family with: unknown) (unknown) (no (unknown) (unknown) bleeding in 1st (units (unknown) date) trimester, unknown) resolved. Reported retroplacental bleed on US @ (unknown) (no (unknown) (unknown) blood, abnormal (units (unknown) date) vaginal discharge unknown) or leakage of fluid. She is feeling routine (unknown) (no (unknown) (unknown) but AmniSure was (units (unknown) date) negative and unknown) evaluation showed no issues of concern. Review of (unknown) (no (unknown) (unknown) caffeine: Yes (units ( unknown) date) (occasionally, unknown) aware of 200mg limit) (unknown) (no (unknown) (unknown) carbon monox (units (u nknown) date) detector in home: unknown) Yes (unknown) (no (unknown) (unknown) cfDNA low risk, (units (unknown) date) girl, MSAFP unknown) normal (unknown) (no (unknown) (unknown) check today (units (un known) date) shows the cervix unknown) to be 50% effaced/closed/-3 /soft/intermediat e (unknown) (no (unknown) (unknown) coenzyme Q10 100 (units (unknown) date) mg capsule (Co unknown) Q-10) 100 mg PO DAILY 04/27/22 [History (unknown) (no (unknown) (unknown) cramping and/or (units (unknown) date) leakage of fluid. unknown) Workup has been negative to date. Cervical (unknown) (no (unknown) (unknown) current (units (unkno wn) date) occupational unknown) exposures/hazards : No (unknown) (no (unknown) (unknown) current plan. (units ( unknown) date) Reports she did unknown) have a suicide attempt this december, was (unknown) (no (unknown) (unknown) daily for the (units ( unknown) date) last week. unknown) Options for mitigation discussed and stool culture/O+P (unknown) (no (unknown) (unknown) daily servings (units (unknown) date) fruits/ve-4 unknown) (unknown) (no (unknown) (unknown) [facility]. She reports some increased (unknown) (no (unknown) (unknown) depression, (units (un known) date) anxiety with h/o unknown) suicide attempt 12/2021 restarted meds, Sertraline (unknown) (no (unknown) (unknown) depression, but (units (unknown) date) was trying to unknown) hold off on starting the sertraline since she (unknown) (no (unknown) (unknown) depression. (units (un known) date) Reports she unknown) currently has some suicidal thoughts but without any (unknown) (no (unknown) (unknown) described, visit (units (unknown) date) schedule unknown) reviewed, ultrasounds policy reviewed, coverage 24 (unknown) (no (unknown) (unknown) directed her to (units (unknown) date) go to ED. She unknown) reports that low-grade uterine activity, (unknown) (no (unknown) (unknown) discussed, (units (unk nown) date) tuberculosis unknown) exposure discussed, CMV discussed, Toxoplasmosis (unknown) (no (unknown) (unknown) do a Glucola (units (u nknown) date) between 26-28 unknown) weeks and we could send lab slip. Also if no care, (unknown) (no (unknown) (unknown) do you feel safe (units (unknown) date) at home: Yes unknown) (unknown) (no (unknown) (unknown) done at [facility] (units (unknown) date) health showed unknown) normal anatomy, placenta and normal cervical (unknown) (no (unknown) (unknown) duration: 15-30 (units (unknown) date) minutes/day unknown) (unknown) (no (unknown) (unknown) during the past (units (unknown) date) year weight has: unknown) other ([id number] lb) (unknown) (no (unknown) (unknown) education level: (units (unknown) date) high school unknown) (unknown) (no (unknown) (unknown) episodes where (units (unknown) date) she has had more unknown) than 5 or 6 contractions in an hour, therefore (unknown) (no (unknown) (unknown) evaluation of (units ( unknown) date) gentle unknown) endocervical sampling slide. Patient has had several (unknown) (no (unknown) (unknown) feeling (units ( unknown) date) movement yet. Her unknown) cell free DNA was low risk, girl. Remainder of (unknown) (no (unknown) (unknown) ferrous sulfate (units (unknown) date) 325 mg (65 mg unknown) iron) tablet 325 mg PO DAILY 04/27/22 [History (unknown) (no (unknown) (unknown) movement. (units (unknown) date) Her MSAFP was unknown) normal. Her 20 week anatomy ultrasound, (unknown) (no (unknown) (unknown) fire (units (unkno wn) date) 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 unknown) home: Yes (unknown) (no (unknown) (unknown) firearms in (units (un known) date) home: Yes unknown) firearms unloaded and locked: Yes (unknown) (no (unknown) (unknown) folic acid 1 mg (units (unknown) date) tablet 0.5 mg PO unknown) DAILY 04/27/22 [History Confirmed 11/03/22] (unknown) (no (unknown) (unknown) gestational age. (units (unknown) date) She is had 2 more unknown) visits to the center regarding (unknown) (no (unknown) (unknown) grandfather (units (un known) date) today who came unknown) from [place] to stay with her through (unknown) (no (unknown) (unknown) have occurred. 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 (units ( unknown) date) Sees a Counselor. unknown) She had used both sertraline and Lexapro in (unknown) (no (unknown) (unknown) hours a day and (units (unknown) date) participation of unknown) father in care and office visits (unknown) (no (unknown) (unknown) household (units (unkn own) date) members: spouse unknown) (unknown) (no (unknown) (unknown) housing: (units (unkno wn) date) apartment unknown) (unknown) (no (unknown) (unknown) in a few weeks. (units (unknown) date) Advised her to unknown) continue with pelvic rest for now . She reports (unknown) (no (unknown) (unknown) in the area. (units (u nknown) date) Discussed trying unknown) to establish with care in [place] (unknown) (no (unknown) (unknown) irritability was (units (unknown) date) seen on the unknown) monitor but her cervix was not dilated. They (unknown) (no (unknown) (unknown) is going to lab (units (unknown) date) again today, will unknown) also try to draw her MSAFP today (our lab (unknown) (no (unknown) (unknown) jw (units (unkno wn) date) unknown) (unknown) (no (unknown) (unknown) knows moods can (units (unknown) date) worsen during unknown) . She was considering starting now (unknown) (no (unknown) (unknown) length, 3.6 cm. (units (unknown) date) She reports that unknown) she will be out of town until approximately 31 (unknown) (no (unknown) (unknown) like start of (units ( unknown) date) menses, stopped unknown) now. Seen in ED in [place] yesterday, (unknown) (no (unknown) (unknown) lives (units (unkno wn) date) independently: unknown) Yes (unknown) (no (unknown) (unknown) marital status: (units (unknown) date) unknown) (unknown) (no (unknown) (unknown) may occur. (units (unk nown) date) Occasional unknown) wrong-word or 'sound-alike' substitutions may have (unknown) (no (unknown) (unknown) minutes x up to (units (unknown) date) 4 doses PRN unknown) increased contraction frequency but to contact the (unknown) (no (unknown) (unknown) nifedipine 10 mg (units (unknown) date) capsule 10 mg PO unknown) Q20M PRN cramping #30 caps 10/19/22 [Rx (unknown) (no (unknown) (unknown) nifedipine 60 mg (units (unknown) date) tablet,extended unknown) release 60 mg PO DAILY #30 tabs 10/19/22 [Rx (unknown) (no (unknown) (unknown) nifedipine. She (units (unknown) date) has also been in unknown) experiencing diarrhea with as many as 5-6 BMs (unknown) (no (unknown) (unknown) number of (units (unkn own) date) children: 0 unknown) (unknown) (no (unknown) (unknown) occupational (units (u nknown) date) status: unknown) unemployed (unknown) (no (unknown) (unknown) occurred due to (units (unknown) date) the inherent unknown) limitations of voice recognition software. Please (unknown) (no (unknown) (unknown) of depression in (units (unknown) date) the past, unknown) re-initiation would be sensible at this point the (unknown) (no (unknown) (unknown) office or BC if (units (unknown) date) contractions unknown) don't subside promptly with initiation of PRN (unknown) (no (unknown) (unknown) ondansetron 4 mg (units (unknown) date) disintegrating unknown) tablet 4 mg PO Q8H PRN nausea and vomiting #20 (unknown) (no (unknown) (unknown) ordered. Her (units (u nknown) date) baby remains unknown) active but she denies any bleeding. PTL precautions (unknown) (no (unknown) (unknown) otherwise. No (units ( unknown) date) cramping, unknown) bleeding, LOF or abnormal vaginal discharge. Not (unknown) (no (unknown) (unknown) pain. Has had a (units (unknown) date) stabbing pain unknown) about every 10 minutes, when ambulating, no pain (unknown) (no (unknown) (unknown) pets and (units (unkno wn) date) animals: Yes (1 unknown) dog 1 cat; aware of toxo) (unknown) (no (unknown) (unknown) placenta. She is (units (unknown) date) understandably unknown) very nervous. Ultrasound today shows viable 11 (unknown) (no (unknown) (unknown) position. No (units (u nknown) date) fluid in unknown) posterior fornix today and no ferning can be detected on (unknown) (no (unknown) (unknown) precautions, (units (u nknown) date) Listeriosis unknown) prevention and Rubella Immunization (unknown) (no (unknown) (unknown) will (units (unknown) date) still proceed unknown) normally, with retroplacental blood resolving Will (unknown) (no (unknown) (unknown) . Her (units (unknown) date) baby remains unknown) active but she denies contractions, bleeding, or (unknown) (no (unknown) (unknown) prenat.vits,jack, (units (unknown) date) [id number] 1 unknown) tab PO DAILY 04/27/22 [History Confirmed (unknown) (no (unknown) (unknown) labs (units ( unknown) date) were not drawn as unknown) they could not get enough blood with small (unknown) (no (unknown) (unknown) read the note (units ( unknown) date) carefully and unknown) recognize, using context, where these substitutions (unknown) (no (unknown) (unknown) reassured that (units ( unknown) date) there was no unknown) significant risk to the infant and given her history (unknown) (no (unknown) (unknown) reports she has (units (unknown) date) not had any unknown) persistent cramping since. Denies spotting of (unknown) (no (unknown) (unknown) reports (units (unkno wn) date) ultrasound showed unknown) baby with heartbeat, and blood seen behind the (unknown) (no (unknown) (unknown) screen if (units (unkn own) date) covered. For cell unknown) free DNA with labs today. Believe she is (unknown) (no (unknown) (unknown) screen) (units (unkno wn) date) unknown) (unknown) (no (unknown) (unknown) seatbelt use: (units ( unknown) date) always unknown) (unknown) (no (unknown) (unknown) second hand (units (un known) date) exposure: Yes unknown) (while visiting family (mom smokes)) (unknown) (no (unknown) (unknown) send for the 11 (units (unknown) date) wk US; if areas unknown) seen was large, then will repeat the ultrasound (unknown) (no (unknown) (unknown) sertraline 25 mg (units (unknown) date) tablet See Rx unknown) Instructions PO .COMPLEX #60 tabs 06/09/22 [Rx (unknown) (no (unknown) (unknown) sertraline. (units (un known) date) Desires unknown) aneuploidy/ NTD screening, desires cell free DNA assay (unknown) (no (unknown) (unknown) significant (units (un known) date) change in vaginal unknown) discharge. 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 She unknown) reports what sounds like left round ligament (unknown) (no (unknown) (unknown) software. (units (unkn own) date) Although every unknown) effort is made to edit content, regulatory technician errors (unknown) (no (unknown) (unknown) special mirella (units ( unknown) date) needs: No unknown) (unknown) (no (unknown) (unknown) started (units (unkno wn) date) sertraline but unknown) intends to do so in the next couple of days. Patient (unknown) (no (unknown) (unknown) substance use (units ( unknown) date) type: marijuana unknown) (quit when she learned she was ) (unknown) (no (unknown) (unknown) tabs 06/09/22 (units ( unknown) date) [Rx Confirmed unknown) 11/03/22] (unknown) (no (unknown) (unknown) tenderness, (units (un known) date) urinary unknown) frequency, irritability, bloating and other (heartburn) (unknown) (no (unknown) (unknown) the past with (units ( unknown) date) both helping. unknown) Most recently on Lexapro which she stopped about 2 (unknown) (no (unknown) (unknown) though before (units ( unknown) date) traveling. I unknown) encouraged her to start the sertraline now. About 2 (unknown) (no (unknown) (unknown) though she is (units ( unknown) date) traveling unknown) shortly. Otherwise to try to find a lab where she can (unknown) (no (unknown) (unknown) through (units (unkno wn) date) pharmacy. unknown) (unknown) (no (unknown) (unknown) to buy one. (units (un known) date) Discussed flu unknown) vaccination, she desires but we had no one to (unknown) (no (unknown) (unknown) to get her blood (units (unknown) date) pressure checked unknown) in about a month if anyone has a BP cuff, or (unknown) (no (unknown) (unknown) travel history: (units (unknown) date) recent (domestic unknown) only) (unknown) (no (unknown) (unknown) ultrasound for (units (unknown) date) 20 weeks. unknown) (unknown) (no (unknown) (unknown) usually does at (units (unknown) date) 16 weeks onward, unknown) so she is a day early). Schedule anatomy (unknown) (no (unknown) (unknown) veins. She (units (unk nown) date) reports 2 unknown) additional attempts at blood draws without success. She (unknown) (no (unknown) (unknown) water heater (units (u nknown) date) temp set < 120 unknown) deg: No (Will call landlord to adjust ) (unknown) (no (unknown) (unknown) week (units (unknown) date) ,? area of unknown) retroplacental blood. I reassured her that commonly (unknown) (no (unknown) (unknown) weeks ago she (units ( unknown) date) called with unknown) persistent bad cramping when in [place] and I (unknown) (no (unknown) (unknown) weeks prior to (units (unknown) date) positive unknown) test, having a feeling she may be . (unknown) (no (unknown) (unknown) weeks, in (units (unkn own) date) [place] with unknown) in loss for about 6 weeks, then 1.5-2 weeks in (unknown) (no (unknown) (unknown) well-balanced (units ( unknown) date) diet: daily or unknown) most days (unknown) (no (unknown) (unknown) will be drawn (units ( unknown) date) today along with unknown) her 1 hour GDM screen H+H. Patient has not yet (unknown) (no (unknown) (unknown) will be in 3 (units (u nknown) date) weeks or as unknown) needed. (unknown) (no (unknown) (unknown) will initiate (units ( unknown) date) daily nifedipine unknown) 60 mg and patient advised to take 10 mg PO q 20 (unknown) (no (unknown) (unknown) working smoke (units ( unknown) date) detector in home: unknown) Yes Result panel [id number] (unknown) (no (unknown) (unknown) (no value) (units (unk nown) date) unknown) (unknown) (no (unknown) (unknown) (+14 lb) 98/66 N (units (unknown) date) unknown) (unknown) (no (unknown) (unknown) (+15 lb) 98/62 N (units (unknown) date) unknown) (unknown) (no (unknown) (unknown) (+21 lb) 92/68 (units (unknown) date) unknown) (unknown) (no (unknown) (unknown) (+6 lb) 104/68 N (units (unknown) date) unknown) (unknown) (no (unknown) (unknown) (-2 lb) 108/60 N (units (unknown) date) unknown) (unknown) (no (unknown) (unknown) (-4 lb) 100/70 N (units (unknown) date) unknown) (unknown) (no (unknown) (unknown) (1) Second (units (unk nown) date) trimester unknown) : (unknown) (no (unknown) (unknown) (2) Anemia: (units (un known) date) unknown) (unknown) (no (unknown) (unknown) (3) (units (un known) date) uterine unknown) contractions: (unknown) (no (unknown) (unknown) (4) Depression: (units (unknown) date) unknown) (unknown) (no (unknown) (unknown) (5) Anxiety: (units (u nknown) date) unknown) (unknown) (no (unknown) (unknown) Genetic (units (unkn own) date) Screening/Teratol unknown) ogy Counseling - Includes patient, baby's father, or (unknown) (no (unknown) (unknown) -?-?-?-?-?-?-?-? (units (unknown) date) -?-?-?-? unknown) (unknown) (no (unknown) (unknown) 09/28/22 (units (unkno wn) date) unknown) (unknown) (no (unknown) (unknown) 10/19/22 (units (unkno wn) date) unknown) (unknown) (no (unknown) (unknown) 10/26/21 6 (units (unk nown) date) spontaneous unknown) (unknown) (no (unknown) (unknown) 10/27/20 5 (units (unk nown) date) spontaneous unknown) (unknown) (no (unknown) (unknown) 11/03/22 (units (unkno wn) date) unknown) (unknown) (no (unknown) (unknown) 11/03/22] (units (unkn own) date) unknown) (unknown) (no (unknown) (unknown) [id number] (units (unkno wn) date) unknown) (unknown) (no (unknown) (unknown) 01/26/22 5 (units (unk nown) date) spontaneous unknown) (unknown) (no (unknown) (unknown) 09:21 (units (unkno wn) date) unknown) (unknown) (no (unknown) (unknown) 06/09/22 (units (unkno wn) date) unknown) (unknown) (no (unknown) (unknown) 06/29/20 5 (units (unk nown) date) spontaneous unknown) (unknown) (no (unknown) (unknown) 07/07/22 (units (unkno wn) date) unknown) (unknown) (no (unknown) (unknown) 11w 5d 123 lb (units ( unknown) date) unknown) (unknown) (no (unknown) (unknown) 08/11/22 (units (unkno wn) date) unknown) (unknown) (no (unknown) (unknown) 15w 5d 121 lb (units ( unknown) date) unknown) (unknown) (no (unknown) (unknown) 21 yo here (units (unknown) date) for IOB visit unknown) @11wk5d. An 8 week US was c/w LMP-TIFFANIE. H/o (unknown) (no (unknown) (unknown) 2 wks (units (unkno wn) date) unknown) (unknown) (no (unknown) (unknown) 20w 5d 131 lb (units ( unknown) date) unknown) (unknown) (no (unknown) (unknown) 27w 4d 139 lb (units ( unknown) date) unknown) (unknown) (no (unknown) (unknown) 30w 4d 140 lb (units ( unknown) date) unknown) (unknown) (no (unknown) (unknown) 32w 5d 146 lb (units ( unknown) date) unknown) (unknown) (no (unknown) (unknown) @ 12wks--did not (units (unknown) date) start yet @ 20 unknown) weeks, was going to re-start (unknown) (no (unknown) (unknown) ADHD (units (unkno wn) date) unknown) (unknown) (no (unknown) (unknown) Abnormal lab (units (u nknown) date) values 1st unknown) trimester: discussed (unknown) (no (unknown) (unknown) Acne (units (unkno wn) date) unknown) (unknown) (no (unknown) (unknown) Add'l Plan (units (unk nown) date) Details unknown) (unknown) (no (unknown) (unknown) Age/Sex: 22 / F (units (unknown) date) Date of Service: unknown) (unknown) (no (unknown) (unknown) Allergies (units (unkn own) date) unknown) (unknown) (no (unknown) (unknown) [place], [place] (units ( unknown) date) [id number] unknown) (unknown) (no (unknown) (unknown) Anemia (-2020) (units (unknown) date) unknown) (unknown) (no (unknown) (unknown) Anemia type: (units (u nknown) date) iron deficiency unknown) (unknown) (no (unknown) (unknown) Anesthesia (units (unk nown) date) unknown) (unknown) (no (unknown) (unknown) Aneuploidy (units (unk nown) date) Screening unknown) Offered: Accepted (undecided, will probably get quad (unknown) (no (unknown) (unknown) Anticipate , (units (unknown) date) [facility] unknown) (unknown) (no (unknown) (unknown) Anticipated (units (un known) date) course of unknown) care: discussed (unknown) (no (unknown) (unknown) Anxiety (units (unkno wn) date) unknown) (unknown) (no (unknown) (unknown) Assessment and (units (unknown) date) Plan unknown) (unknown) (no (unknown) (unknown) Attending Dr: (units ( unknown) date) Tony Carlton MD unknown) (unknown) (no (unknown) (unknown) Autism (units (unkno wn) date) unknown) (unknown) (no (unknown) (unknown) B6. On review of (units (unknown) date) options she unknown) desires Zofran, Rx sent. History of severe (unknown) (no (unknown) (unknown) BMI 25.8 (units (unkno wn) date) unknown) (unknown) (no (unknown) (unknown) BP 92/68 (units (unkno wn) date) unknown) (unknown) (no (unknown) (unknown) Bipolar disorder (units (unknown) date) unknown) (unknown) (no (unknown) (unknown) (units (unkno wn) date) Plan/Preferences unknown) (unknown) (no (unknown) (unknown) Planning (units (unknown) date) unknown) (unknown) (no (unknown) (unknown) Blood Pressure (units (unknown) date) Location Rt unknown) brachial (unknown) (no (unknown) (unknown) Blood (units (unkno wn) date) transfusions?: unknown) yes (Never had but would accept) (unknown) (no (unknown) (unknown) Breastfeed Preg (units (unknown) date) Comp Name unknown) (unknown) (no (unknown) (unknown) Brother Anxiety (units (unknown) date) unknown) (unknown) (no (unknown) (unknown) Caffeine use, (units ( unknown) date) Exercise and unknown) activity, work/environmenta l/hazards, Sexual (unknown) (no (unknown) (unknown) [place] with (units (unknown) date) her grandfather. unknown) Appears grandfather's no longer here with her (unknown) (no (unknown) (unknown) Cancer (units (unkno wn) date) unknown) (unknown) (no (unknown) (unknown) Childbirth (units (unk nown) date) Classes: unknown) discussed (unknown) (no (unknown) (unknown) Confirmed (units (unkn own) date) 11/03/22] unknown) (unknown) (no (unknown) (unknown) Continue present (units (unknown) date) management. unknown) Patient knows she can increase her nifedipine. (unknown) (no (unknown) (unknown) [place] ED. (units (unknown) date) 20 week US normal unknown) (unknown) (no (unknown) (unknown) Current Estimate (units (unknown) date) 12/24/22 LMP unknown) (Certain) 32w 5d (unknown) (no (unknown) (unknown) Current (units (unkno wn) date) History unknown) (unknown) (no (unknown) (unknown) : 2000 (units (unknown) date) Acct:[id number] unknown) (unknown) (no (unknown) (unknown) Date of positive (units (unknown) date) home unknown) test: 04/10/22 (unknown) (no (unknown) (unknown) Date (units (unkno wn) date) unknown) (unknown) (no (unknown) (unknown) Del. Date (units (unkn own) date) GA/Weeks Labor unknown) Lgth Wt Sex Route Outcome Anesthesia Place (unknown) (no (unknown) (unknown) Delv (units (unkno wn) date) unknown) (unknown) (no (unknown) (unknown) Depression / (units (u nknown) date) anxiety is worse unknown) now, she does desire to restart medication. Rx (unknown) (no (unknown) (unknown) Depression Type: (units (unknown) date) depression during unknown) Trimester: second (unknown) (no (unknown) (unknown) Depression (units (unk nown) date) unknown) (unknown) (no (unknown) (unknown) Depression: (units (un known) date) discussed unknown) (unknown) (no (unknown) (unknown) Dept at (units (unkno wn) date) . unknown) (unknown) (no (unknown) (unknown) [facility] and (units (un known) date) [facility] returns unknown) today for her FRED visit now 30+ 4 weeks (unknown) (no (unknown) (unknown) [facility] is here (units (unknown) date) for a FRED visit @ unknown) 15wk5d. She is accompanied by her (unknown) (no (unknown) (unknown) [facility] presents (units (unknown) date) for an are OB unknown) visit at 20 weeks 5 days. [place], (unknown) (no (unknown) (unknown) [facility] returns (units (unknown) date) today for her FRED unknown) visit now at 27+ 4 weeks gestational (unknown) (no (unknown) (unknown) Jen is now (units (unknown) date) 30 2+5 weeks' unknown) gestation. She has a total flat affect (unknown) (no (unknown) (unknown) Diabetes (units (unkno wn) date) mellitus unknown) (unknown) (no (unknown) (unknown) Diet and (units (unkno wn) date) Exercise unknown) (unknown) (no (unknown) (unknown) Documented By: (units (unknown) date) Tony Carlton MD unknown) 11/03/22 0919 (unknown) (no (unknown) (unknown) Draft (units (unkno wn) date) unknown) (unknown) (no (unknown) (unknown) TIFFANIE Calculator (units (unknown) date) unknown) (unknown) (no (unknown) (unknown) EGA Weight BP (units ( unknown) date) UGlucose unknown) (unknown) (no (unknown) (unknown) Estimated (units (unkn own) date) Delivery Date unknown) Method Current (unknown) (no (unknown) (unknown) Expected (units (unkno wn) date) Delivery unknown) Route/Plan (unknown) (no (unknown) (unknown) Family History (units (unknown) date) (Reviewed unknown) 10/10/22 @ 21:45 by Linh Mcginnis, TAB, STEVE) (unknown) (no (unknown) (unknown) Father Diabetes (units (unknown) date) mellitus unknown) (unknown) (no (unknown) (unknown) Father of Baby: (units (unknown) date) same unknown) (unknown) (no (unknown) (unknown) [facility] ([facility] unknown) (unknown) (no (unknown) (unknown) First Trimester (units (unknown) date) Education unknown) Checklist (unknown) (no (unknown) (unknown) (all-5 week (units (unknown) date) SABs) unknown) (unknown) (no (unknown) (unknown) Genetic (units (unkno [...] practice discussed, personnel (unknown) (no (unknown) (unknown) Height 5 ft 3 in (units (unknown) date) unknown) (unknown) (no (unknown) (unknown) Hepatitis C risk (units (unknown) date) evaluation: low unknown) risk (unknown) (no (unknown) (unknown) History of (units (unk nown) date) Hepatitis B: No unknown) (unknown) (no (unknown) (unknown) History of (units (unk nown) date) Hepatitis C: No unknown) 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 (unknown) (no (unknown) (unknown) History of (units (unk nown) date) removal of skin unknown) mole (unknown) (no (unknown) (unknown) Hospital: (units (u nknown) date) unknown) (unknown) (no (unknown) (unknown) [place], (units (unknown) date) deployed unknown) (unknown) (no (unknown) (unknown) Hx # (units (u nknown) date) Pregnancies 0 unknown) Elective abortions 0 (unknown) (no (unknown) (unknown) Hx # Term (units (unkn own) date) Pregnancies 0 unknown) Ectopic pregnancies 0 (unknown) (no (unknown) (unknown) Hyperlipidemia (units (unknown) date) unknown) (unknown) (no (unknown) (unknown) Hypertension (units (u nknown) date) unknown) (unknown) (no (unknown) (unknown) Infant will be [...] Staff unknown) (unknown) (no (unknown) (unknown) Intake Note: (units (u nknown) date) unknown) (unknown) (no (unknown) (unknown) Intake performed (units (unknown) date) by: Michele Saha unknown) (unknown) (no (unknown) (unknown) Intake (units (unkno wn) date) unknown) (unknown) (no (unknown) (unknown) LMP-TIFFANIE (units (unkno wn) date) unknown) (unknown) (no [...] (unknown) (unknown) Medical History (units (unknown) date) (Reviewed unknown) 10/10/22 @ 21:45 by Linh Mcginnis, TAB, STEVE) (unknown) (no (unknown) (unknown) Medications (units (un known) date) unknown) (unknown) (no (unknown) (unknown) Mental health (units ( unknown) date) problem unknown) (unknown) (no (unknown) (unknown) Mother (units (unkno wn) date) Gestational unknown) diabetes (unknown) (no (unknown) (unknown) N Yes no 138 30 (units (unknown) date) Vertex absent unknown) 50%/CL/-3 (unknown) (no (unknown) (unknown) N Yes no 144 20 (units (unknown) date) absent 4wk unknown) (unknown) (no (unknown) (unknown) No Known Drug (units ( unknown) date) Allergies Allergy unknown) (Verified 11/03/22 09:20) (unknown) (no (unknown) (unknown) Notes (units (unkno wn) date) unknown) (unknown) (no (unknown) (unknown) Number of Living (units (unknown) date) Children 0 unknown) (unknown) (no (unknown) (unknown) Number of (units (unkn own) date) fetuses:: Single unknown) (unknown) (no (unknown) (unknown) Nutrition and (units ( unknown) date) weight gain unknown) counseling: special diet: discussed (unknown) (no (unknown) (unknown) OB Office Visit (units (unknown) date) unknown) (unknown) (no (unknown) (unknown) OB Visit Log (units (u nknown) date) unknown) (unknown) (no (unknown) (unknown) On control (units (unknown) date) at conception?: unknown) No (unknown) (no (unknown) (unknown) Other Estimates (units (unknown) date) 12/22/22 unknown) Ultrasound #1 33w 0d (unknown) (no (unknown) (unknown) Ovarian cyst (units (u nknown) date) () unknown) (unknown) (no (unknown) (unknown) PFSH (units (unkno wn) date) unknown) (unknown) (no (unknown) (unknown) PID (acute (units (unk nown) date) pelvic unknown) inflammatory disease) (unknown) (no (unknown) (unknown) PTSD (units (unkno wn) date) (post-traumatic unknown) stress disorder) () (unknown) (no (unknown) (unknown) Para 0 (units [...] date) unknown) (unknown) (no (unknown) (unknown) Patient was (units (un known) date) previously unknown) scheduled for iron infusions but this has not been (unknown) (no (unknown) (unknown) Patient will be (units (unknown) date) expecting a call unknown) from Infusion Center (unknown) (no (unknown) (unknown) Patient's age 37 (units (unknown) date) years or older as unknown) of estimated date of delivery: No (unknown) (no (unknown) (unknown) Patient: (units (unkno wn) date) Piper Arguelles unknown) MR#: [id number] (unknown) (no (unknown) (unknown) 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: (units ( unknown) date) [facility] unknown) (unknown) (no (unknown) (unknown) Personal history (units (unknown) date) of STD: other unknown) (PID (unknown bacterial agent) in 12/2021) (unknown) (no (unknown) (unknown) Personal history (units (unknown) date) of genital unknown) herpes: No (unknown) (no (unknown) (unknown) Plan (units (unkno wn) date) unknown) (unknown) (no (unknown) (unknown) Position Sitting (units (unknown) date) unknown) (unknown) (no (unknown) (unknown) (units (unkn own) date) History unknown) (unknown) (no (unknown) (unknown) type:: (units (unknown) date) First unknown) (unknown) (no (unknown) (unknown) (units (unkno wn) date) Education unknown) (unknown) (no (unknown) (unknown) Initial (units (unknown) date) Assessment unknown) (unknown) (no (unknown) (unknown) (units (unkno wn) date) Specific unknown) Issues/Plans (unknown) (no (unknown) (unknown) (units (unkno wn) date) Testing: unknown) discussed (unknown) (no (unknown) (unknown) Visit (units (unknown) date) unknown) (unknown) (no (unknown) (unknown) (units (unkno wn) date) education packet: unknown) Child education/plan, symptoms, (unknown) (no (unknown) (unknown) Primary Care (units (u nknown) date) Provider: [facility] [place] unknown) [place] (unknown) (no (unknown) (unknown) Primary Ob (units (unk nown) date) Provider: unknown) Tyesha Brito (unknown) (no (unknown) (unknown) Prior (units (unkno wn) date) GBS-Infected unknown) child: No (unknown) (no (unknown) (unknown) Prostate cancer (units (unknown) date) unknown) (unknown) (no (unknown) (unknown) Providers (units (unkn own) date) unknown) (unknown) (no (unknown) (unknown) Pt here for OB (units (unknown) date) Check unknown) (unknown) (no (unknown) (unknown) Qualifiers: (units (un known) date) unknown) (unknown) (no (unknown) (unknown) Rash or viral (units ( unknown) date) illness since unknown) last menstrual period: No (unknown) (no (unknown) (unknown) Reason For Visit (units (unknown) date) unknown) (unknown) (no (unknown) (unknown) Recent travel (units ( unknown) date) outside of unknown) country?: No (unknown) (no (unknown) (unknown) Recurrent UTI (units ( unknown) date) () unknown) (unknown) (no (unknown) (unknown) Recurrent (units [...] siblings w/ autism) (unknown) (no (unknown) (unknown) Rh positive, (units (u nknown) date) will check unknown) results today, RhoGAM as needed. (unknown) (no (unknown) (unknown) Sabs x4 @5-6 (units (u nknown) date) weeks. She passed unknown) a small clot a week ago, then had BRB yesterday (unknown) (no (unknown) (unknown) Safety (units (unkno wn) date) unknown) (unknown) (no (unknown) (unknown) Schizophrenia (units ( unknown) date) unknown) (unknown) (no (unknown) (unknown) Seizures (-2002) (units (unknown) date) unknown) (unknown) (no (unknown) [...] (unknown) date) unknown) (unknown) (no (unknown) (unknown) Status: Acute (units ( unknown) date) unknown) (unknown) (no (unknown) (unknown) Support (units (unkno wn) date) Person(s):: unknown) [facility] (unknown) (no (unknown) (unknown) Surgical History (units (unknown) date) (Reviewed unknown) 10/10/22 @ 21:45 by Linh Mcginnis, TAB, [employer]AMSTRESS) (unknown) (no (unknown) (unknown) Surrogate (units (unkn own) date) ?: no unknown) (unknown) (no (unknown) (unknown) Symptoms since (units (unknown) date) LMP: Reports unknown) amenorrhea, nausea, vomiting, fatigue, breast (unknown) (no (unknown) (unknown) TR No no 138 16 (units (unknown) date) absent 4wk unknown) (unknown) (no (unknown) (unknown) TR No no 162 12 (units (unknown) date) absent 4wk unknown) (unknown) (no (unknown) (unknown) TR Yes no 142 28 (units (unknown) date) absent 3 wks unknown) (unknown) (no (unknown) (unknown) Teratogen (units (unkn [...] (unknown) date) unknown) (unknown) (no (unknown) (unknown) Trimester:: 3rd (units (unknown) date) Trimester unknown) (28wks-Del) (unknown) (no (unknown) (unknown) Type(s) of (units (unk nown) date) exercise: walking unknown) (unknown) (no (unknown) (unknown) UProtein Movement (units (unknown) date) PreLabor FHR Fndl unknown) Ht Pres Edema Cerv Exam US/Comment Next Appt (unknown) (no (unknown) (unknown) Ultrasound (units (unk nown) date) Details:: 05/17/22 unknown) US @ [facility]: SI[facility], CRL c/w 8wk5d, US-TIFFANIE 12/22/22, c/w (unknown) (no (unknown) (unknown) Ultrasound (units (unk nown) date) unknown) (unknown) (no (unknown) (unknown) Varicella/chicke (units (unknown) date) n pox status: unknown) immunized (unknown) (no (unknown) (unknown) Visit Date: (units (un known) date) 09/28/22 Last unknown) Updated by: Chaka Flores MD (unknown) (no (unknown) (unknown) Visit Date: (units (un known) date) 10/19/22 Last unknown) Updated by: Chaka Flores MD (unknown) (no (unknown) (unknown) Visit Date: (units (un known) date) 11/03/22 Last unknown) Updated by: Tony Carlton MD (unknown) (no (unknown) (unknown) Visit Date: (units (un known) date) 06/09/22 Last unknown) Updated by: Tyesha Brito MD (unknown) (no (unknown) (unknown) Visit Date: (units (un known) date) 07/07/22 Last unknown) Updated by: Tyesha rBito MD (unknown) (no (unknown) (unknown) Visit Date: (units (un known) date) 08/11/22 Last unknown) Updated by: Tyesha Brito MD (unknown) (no (unknown) (unknown) Visit Reasons: (units (unknown) date) OB * nithya unknown) (unknown) (no (unknown) (unknown) Vitals (units (unkno wn) date) unknown) (unknown) (no (unknown) (unknown) Vitamins and (units (u nknown) date) iron, Diet and unknown) weight gain, Fish and mercury intake, Smoking, (unknown) (no (unknown) (unknown) WG (units (unkno wn) date) unknown) (unknown) (no (unknown) (unknown) Weeks (units (unkno wn) date) gestation:: 32 unknown) (unknown) (no (unknown) (unknown) Weight 146 lb (units ( unknown) date) unknown) (unknown) (no (unknown) (unknown) Yes no 130 32 (units ( unknown) date) Breech absent 2wk unknown) (unknown) (no (unknown) (unknown) Zika virus (units (unk nown) date) exposure: No unknown) (unknown) (no (unknown) (unknown) a lot of nausea (units (unknown) date) with emesis, may unknown) last whole day. No improvement with Unisom / (unknown) (no (unknown) (unknown) activity, X-ray (units (unknown) date) exposure, unknown) Medication use, Sauna/hot tub use, Dental care, (unknown) (no (unknown) (unknown) administer (units (unk nown) date) currently for unknown) about 30 minutes. She states she will try to get (unknown) (no (unknown) (unknown) advised her that (units (unknown) date) she should return unknown) if she felt regular contractions. She (unknown) (no (unknown) (unknown) after she is had (units (unknown) date) several iron unknown) infusions (unknown) (no (unknown) (unknown) again reviewed (units (unknown) date) and follow-up unknown) will be in 2 weeks or as needed. (unknown) (no (unknown) (unknown) age. She was (units (u nknown) date) seen on the unknown) center last night with possible leakage of fluid (unknown) (no (unknown) (unknown) alcohol intake: (units (unknown) date) never unknown) (unknown) (no (unknown) (unknown) amh (units (unkno wn) date) unknown) (unknown) (no (unknown) (unknown) anyone in either (units (unknown) date) family with: unknown) (unknown) (no (unknown) (unknown) approved yet she (units (unknown) date) says that she unknown) does feel weak and I explained that with her (unknown) (no (unknown) (unknown) bleeding in 1st (units (unknown) date) trimester, unknown) resolved. Reported retroplacental bleed on US @ (unknown) (no (unknown) (unknown) blood, abnormal (units (unknown) date) vaginal discharge unknown) or leakage of fluid. She is feeling routine (unknown) (no (unknown) (unknown) but AmniSure was (units (unknown) date) negative and unknown) evaluation showed no issues of concern. Review of (unknown) (no (unknown) (unknown) caffeine: Yes (units ( unknown) date) (occasionally, unknown) aware of 200mg limit) (unknown) (no (unknown) (unknown) carbon monox (units (u nknown) date) detector in home: unknown) Yes (unknown) (no (unknown) (unknown) cfDNA low risk, (units (unknown) date) girl, MSAFP unknown) normal (unknown) (no (unknown) (unknown) check today (units (un known) date) shows the cervix unknown) to be 50% effaced/closed/-3 /soft/intermediat e (unknown) (no (unknown) (unknown) coenzyme Q10 100 (units (unknown) date) mg capsule (Co unknown) Q-10) 100 mg PO DAILY 04/27/22 [History (unknown) (no (unknown) (unknown) cramping and/or (units (unknown) date) leakage of fluid. unknown) Workup has been negative to date. Cervical (unknown) (no (unknown) (unknown) current (units (unkno wn) date) occupational unknown) exposures/hazards : No (unknown) (no (unknown) (unknown) current plan. (units ( unknown) date) Reports she did unknown) have a suicide attempt this december, was (unknown) (no (unknown) (unknown) daily for the (units ( unknown) date) last week. unknown) Options for mitigation discussed and stool culture/O+P (unknown) (no (unknown) (unknown) daily servings (units (unknown) date) fruits/ve-4 unknown) (unknown) (no (unknown) (unknown) deployed in (units (un known) date) [place] was on unknown) video chat for the visit. She reports some increased (unknown) (no (unknown) (unknown) depression, (units (un known) date) anxiety with h/o unknown) suicide attempt 12/2021 restarted meds, Sertraline (unknown) (no (unknown) (unknown) depression, but (units (unknown) date) was trying to unknown) hold off on starting the sertraline since she (unknown) (no (unknown) (unknown) depression. (units (un known) date) Reports she unknown) currently has some suicidal thoughts but without any (unknown) (no (unknown) (unknown) described, visit (units (unknown) date) schedule unknown) reviewed, ultrasounds policy reviewed, coverage 24 (unknown) (no (unknown) (unknown) directed her to (units (unknown) date) go to ED. She unknown) reports that low-grade uterine activity, (unknown) (no (unknown) (unknown) discussed, (units (unk nown) date) tuberculosis unknown) exposure discussed, CMV discussed, Toxoplasmosis (unknown) (no (unknown) (unknown) do a Glucola (units (u nknown) date) between 26-28 unknown) weeks and we could send lab slip. Also if no care, (unknown) (no (unknown) (unknown) do you feel safe (units (unknown) date) at home: Yes unknown) (unknown) (no (unknown) (unknown) done at [facility] (units (unknown) date) health showed unknown) normal anatomy, placenta and normal cervical (unknown) (no (unknown) (unknown) duration: 15-30 (units (unknown) date) minutes/day unknown) (unknown) (no (unknown) (unknown) during the past (units (unknown) date) year weight has: unknown) other ([id number] lb) (unknown) (no (unknown) (unknown) education level: (units (unknown) date) high school unknown) (unknown) (no (unknown) (unknown) episodes where (units (unknown) date) she has had more unknown) than 5 or 6 contractions in an hour, therefore (unknown) (no (unknown) (unknown) erk (units (unkno wn) date) unknown) (unknown) (no (unknown) (unknown) evaluation of (units ( unknown) date) gentle unknown) endocervical sampling slide. Patient has had several (unknown) (no (unknown) (unknown) feeling (units ( unknown) date) movement yet. Her unknown) cell free DNA was low risk, girl. Remainder of (unknown) (no (unknown) (unknown) ferrous sulfate (units (unknown) date) 325 mg (65 mg unknown) iron) tablet 325 mg PO DAILY 04/27/22 [History (unknown) (no (unknown) (unknown) movement. (units (unknown) date) Her MSAFP was unknown) normal. Her 20 week anatomy ultrasound, (unknown) (no (unknown) (unknown) fire (units (unkno wn) date) 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 unknown) home: Yes (unknown) (no (unknown) (unknown) firearms in (units (un known) date) home: Yes unknown) firearms unloaded and locked: Yes (unknown) (no (unknown) (unknown) folic acid 1 mg (units (unknown) date) tablet 0.5 mg PO unknown) DAILY 04/27/22 [History Confirmed 11/03/22] (unknown) (no (unknown) (unknown) gestational age. (units (unknown) date) She is had 2 more unknown) visits to the center regarding (unknown) (no (unknown) (unknown) grandfather (units (un known) date) today who came unknown) from [place] to stay with her through (unknown) (no (unknown) (unknown) have occurred. (units (unknown) date) If there are any unknown) questions, please contact the Medical Records (unknown) (no (unknown) (unknown) hemoglobin at (units ( unknown) date) 9.4 last unknown) determination that she should feel remarkably better (unknown) (no (unknown) (unknown) her record shows (units (unknown) date) that she has not unknown) yet had her base line labs but those (unknown) (no (unknown) (unknown) hospitalized. (units ( unknown) date) Sees a Counselor. unknown) She had used both sertraline and Lexapro in (unknown) (no (unknown) (unknown) hours a day and (units (unknown) date) participation of unknown) father in care and office visits (unknown) (no (unknown) (unknown) household (units (unkn own) date) members: spouse unknown) (unknown) (no (unknown) (unknown) housing: (units (unkno wn) date) apartment unknown) (unknown) (no (unknown) (unknown) in a few weeks. (units (unknown) date) Advised her to unknown) continue with pelvic rest for now . She reports (unknown) (no (unknown) (unknown) in the area. (units (u nknown) date) Discussed trying unknown) to establish with care in [place] (unknown) (no (unknown) (unknown) irritability was (units (unknown) date) seen on the unknown) monitor but her cervix was not dilated. They (unknown) (no (unknown) (unknown) is going to lab (units (unknown) date) again today, will unknown) also try to draw her MSAFP today (our lab (unknown) (no (unknown) (unknown) jw (units (unkno wn) date) unknown) (unknown) (no (unknown) (unknown) knows moods can (units (unknown) date) worsen during unknown) . She was considering starting now (unknown) (no (unknown) (unknown) length, 3.6 cm. (units (unknown) date) She reports that unknown) she will be out of town until approximately 31 (unknown) (no (unknown) (unknown) like start of (units ( unknown) date) menses, stopped unknown) now. Seen in ED in [place] yesterday, (unknown) (no (unknown) (unknown) lives (units (unkno wn) date) independently: unknown) Yes (unknown) (no (unknown) (unknown) marital status: (units (unknown) date) unknown) (unknown) (no (unknown) (unknown) may occur. (units (unk nown) date) Occasional unknown) wrong-word or 'sound-alike' substitutions may have (unknown) (no (unknown) (unknown) minutes x up to (units (unknown) date) 4 doses PRN unknown) increased contraction frequency but to contact the (unknown) (no (unknown) (unknown) nifedipine 10 mg (units (unknown) date) capsule 10 mg PO unknown) Q20M PRN cramping #30 caps 10/19/22 [Rx (unknown) (no (unknown) (unknown) nifedipine 60 mg (units (unknown) date) tablet,extended unknown) release 60 mg PO DAILY #30 tabs 10/19/22 [Rx (unknown) (no (unknown) (unknown) nifedipine. She (units (unknown) date) has also been in unknown) experiencing diarrhea with as many as 5-6 BMs (unknown) (no (unknown) (unknown) number of (units (unkn own) date) children: 0 unknown) (unknown) (no (unknown) (unknown) occupational (units (u nknown) date) status: unknown) unemployed (unknown) (no (unknown) (unknown) occurred due to (units (unknown) date) the inherent unknown) limitations of voice recognition software. Please (unknown) (no (unknown) (unknown) of depression in (units (unknown) date) the past, unknown) re-initiation would be sensible at this point the (unknown) (no (unknown) (unknown) office or BC if (units (unknown) date) contractions unknown) don't subside promptly with initiation of PRN (unknown) (no (unknown) (unknown) ondansetron 4 mg (units (unknown) date) disintegrating unknown) tablet 4 mg PO Q8H PRN nausea and vomiting #20 (unknown) (no (unknown) (unknown) ordered. Her (units (u nknown) date) baby remains unknown) active but she denies any bleeding. PTL precautions (unknown) (no (unknown) (unknown) otherwise. No (units ( unknown) date) cramping, unknown) bleeding, LOF or abnormal vaginal discharge. Not (unknown) (no (unknown) (unknown) pain. Has had a (units (unknown) date) stabbing pain unknown) about every 10 minutes, when ambulating, no pain (unknown) (no (unknown) (unknown) pets and (units (unkno wn) date) animals: Yes (1 unknown) dog 1 cat; aware of toxo) (unknown) (no (unknown) (unknown) placenta. She is (units (unknown) date) understandably unknown) very nervous. Ultrasound today shows viable 11 (unknown) (no (unknown) (unknown) position. No (units (u nknown) date) fluid in unknown) posterior fornix today and no ferning can be detected on (unknown) (no (unknown) (unknown) precautions, (units (u nknown) date) Listeriosis unknown) prevention and Rubella Immunization (unknown) (no (unknown) (unknown) will (units (unknown) date) still proceed unknown) normally, with retroplacental blood resolving Will (unknown) (no (unknown) (unknown) , (units (unk nown) date) second trimester; unknown) F32.A - Depression, unspecified (unknown) (no (unknown) (unknown) . Her (units (unknown) date) baby remains unknown) active but she denies contractions, bleeding, or (unknown) (no (unknown) (unknown) prenat.vits,jack, (units (unknown) date) [id number] 1 unknown) tab PO DAILY 04/27/22 [History Confirmed (unknown) (no (unknown) (unknown) labs (units ( unknown) date) were not drawn as unknown) they could not get enough blood with small (unknown) (no (unknown) (unknown) read the note (units ( unknown) date) carefully and unknown) recognize, using context, where these substitutions (unknown) (no (unknown) (unknown) reassured that (units ( unknown) date) there was no unknown) significant risk to the infant and given her history (unknown) (no (unknown) (unknown) reports she has (units (unknown) date) not had any unknown) persistent cramping since. Denies spotting of (unknown) (no (unknown) (unknown) reports (units (unkno wn) date) ultrasound showed unknown) baby with heartbeat, and blood seen behind the (unknown) (no (unknown) (unknown) screen if (units (unkn own) date) covered. For cell unknown) free DNA with labs today. Believe she is (unknown) (no (unknown) (unknown) screen) (units (unkno wn) date) unknown) (unknown) (no (unknown) (unknown) seatbelt use: (units ( unknown) date) always unknown) (unknown) (no (unknown) (unknown) second hand (units (un known) date) exposure: Yes unknown) (while visiting family (mom smokes)) (unknown) (no (unknown) (unknown) send for the 11 (units (unknown) date) wk US; if areas unknown) seen was large, then will repeat the ultrasound (unknown) (no (unknown) (unknown) sertraline 25 mg (units (unknown) date) tablet See Rx unknown) Instructions PO .COMPLEX #60 tabs 06/09/22 [Rx (unknown) (no (unknown) (unknown) sertraline. (units (un known) date) Desires unknown) aneuploidy/ NTD screening, desires cell free DNA assay (unknown) (no (unknown) (unknown) significant (units (un known) date) change in vaginal unknown) discharge. 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 She unknown) reports what sounds like left round ligament (unknown) (no (unknown) (unknown) software. (units (unkn own) date) Although every unknown) effort is made to edit content, regulatory technician errors (unknown) (no (unknown) (unknown) special mirella (units ( unknown) date) needs: No unknown) (unknown) (no (unknown) (unknown) started (units (unkno wn) date) sertraline but unknown) intends to do so in the next couple of days. Patient (unknown) (no (unknown) (unknown) substance use (units ( unknown) date) type: marijuana unknown) (quit when she learned she was ) (unknown) (no (unknown) (unknown) tabs 06/09/22 (units ( unknown) date) [Rx Confirmed unknown) 11/03/22] (unknown) (no (unknown) (unknown) takes the 10 mg (units (unknown) date) occasionally when unknown) she has a run of uterine contractions that (unknown) (no (unknown) (unknown) tenderness, (units (un known) date) urinary unknown) frequency, irritability, bloating and other (heartburn) (unknown) (no (unknown) (unknown) the nifedipine (units (unknown) date) on a daily basis unknown) due to side effects headaches etc.. She still (unknown) (no (unknown) (unknown) the past with (units ( unknown) date) both helping. unknown) Most recently on Lexapro which she stopped about 2 (unknown) (no (unknown) (unknown) this is no more (units (unknown) date) than a couple of unknown) times a week (unknown) (no (unknown) (unknown) though before (units ( unknown) date) traveling. I unknown) encouraged her to start the sertraline now. About 2 (unknown) (no (unknown) (unknown) though she is (units ( unknown) date) traveling unknown) shortly. Otherwise to try to find a lab where she can (unknown) (no (unknown) (unknown) through (units (unkno wn) date) pharmacy. unknown) (unknown) (no (unknown) (unknown) to buy one. (units (un known) date) Discussed flu unknown) vaccination, she desires but we had no one to (unknown) (no (unknown) (unknown) to get her blood (units (unknown) date) pressure checked unknown) in about a month if anyone has a BP cuff, or (unknown) (no (unknown) (unknown) today, noting (units ( unknown) date) that she started unknown) her sertraline 2 weeks ago. She stopped taking (unknown) (no (unknown) (unknown) travel history: (units (unknown) date) recent (domestic unknown) only) (unknown) (no (unknown) (unknown) trimester (units (unkn own) date) Qualified unknown) Code(s): O99.342 - Other mental disorders complicating (unknown) (no (unknown) (unknown) ultrasound for (units (unknown) date) 20 weeks. unknown) (unknown) (no (unknown) (unknown) usually does at (units (unknown) date) 16 weeks onward, unknown) so she is a day early). Schedule anatomy (unknown) (no (unknown) (unknown) veins. She (units (unk nown) date) reports 2 unknown) additional attempts at blood draws without success. She (unknown) (no (unknown) (unknown) water heater (units (u nknown) date) temp set < 120 unknown) deg: No (Will call landlord to adjust ) (unknown) (no (unknown) (unknown) week (units (unknown) date) ,? area of unknown) retroplacental blood. I reassured her that commonly (unknown) (no (unknown) (unknown) weeks ago she (units ( unknown) date) called with unknown) persistent bad cramping when in [place] and I (unknown) (no (unknown) (unknown) weeks prior to (units (unknown) date) positive unknown) test, having a feeling she may be . (unknown) (no (unknown) (unknown) weeks, in (units (unkn own) date) [place] with unknown) in loss for about 6 weeks, then 1.5-2 weeks in (unknown) (no (unknown) (unknown) well-balanced (units ( unknown) date) diet: daily or unknown) most days (unknown) (no (unknown) (unknown) will be drawn (units ( unknown) date) today along with unknown) her 1 hour GDM screen H+H. Patient has not yet (unknown) (no (unknown) (unknown) will be in 3 (units (u nknown) date) weeks or as unknown) needed. (unknown) (no (unknown) (unknown) will initiate (units ( unknown) date) daily nifedipine unknown) 60 mg and patient advised to take 10 mg PO q 20 (unknown) (no (unknown) (unknown) working smoke (units ( unknown) date) detector in home: unknown) Yes Result panel [id number] (unknown) (no (unknown) (unknown) (no value) (units (unk nown) date) unknown) (unknown) (no (unknown) (unknown) (+14 lb) 98/66 N (units (unknown) date) unknown) (unknown) (no (unknown) (unknown) (+15 lb) 98/62 N (units (unknown) date) unknown) (unknown) (no (unknown) (unknown) (+21 lb) 92/68 N (units (unknown) date) unknown) (unknown) (no (unknown) (unknown) (+6 lb) 104/68 N (units (unknown) date) unknown) (unknown) (no (unknown) (unknown) (-2 lb) 108/60 N (units (unknown) date) unknown) (unknown) (no (unknown) (unknown) (-4 lb) 100/70 N (units (unknown) date) unknown) (unknown) (no (unknown) (unknown) (1) Second (units (unk nown) date) trimester unknown) : (unknown) (no (unknown) (unknown) (2) Anemia: (units (un known) date) unknown) (unknown) (no (unknown) (unknown) (3) (units (un known) date) uterine unknown) contractions: (unknown) (no (unknown) (unknown) (4) Depression: (units (unknown) date) unknown) (unknown) (no (unknown) (unknown) (5) Anxiety: (units (u nknown) date) unknown) (unknown) (no (unknown) (unknown) Genetic (units (unkn own) date) Screening/Teratol unknown) ogy Counseling - Includes patient, baby's father, or (unknown) (no (unknown) (unknown) -?-?-?-?-?-?-?-? (units (unknown) date) -?-?-?-? unknown) (unknown) (no (unknown) (unknown) 09/28/22 (units (unkno wn) date) unknown) (unknown) (no (unknown) (unknown) 10/19/22 (units (unkno wn) date) unknown) (unknown) (no (unknown) (unknown) 10/26/21 6 (units (unk nown) date) spontaneous unknown) (unknown) (no (unknown) (unknown) 10/27/20 5 (units (unk nown) date) spontaneous unknown) (unknown) (no (unknown) (unknown) 11/03/22 1027 (units ( unknown) date) unknown) (unknown) (no (unknown) (unknown) 11/03/22 (units (unkno wn) date) unknown) (unknown) (no (unknown) (unknown) 11/03/22] (units (unkn own) date) unknown) (unknown) (no (unknown) (unknown) [id number] (units (unkno wn) date) unknown) (unknown) (no (unknown) (unknown) 01/26/22 5 (units (unk nown) date) spontaneous unknown) (unknown) (no (unknown) (unknown) 09:21 (units (unkno wn) date) unknown) (unknown) (no (unknown) (unknown) 06/09/22 (units (unkno wn) date) unknown) (unknown) (no (unknown) (unknown) 06/29/20 5 (units (unk nown) date) spontaneous unknown) (unknown) (no (unknown) (unknown) 07/07/22 (units (unkno wn) date) unknown) (unknown) (no (unknown) (unknown) 11w 5d 123 lb (units ( unknown) date) unknown) (unknown) (no (unknown) (unknown) 08/11/22 (units (unkno wn) date) unknown) (unknown) (no (unknown) (unknown) 15w 5d 121 lb (units ( unknown) date) unknown) (unknown) (no (unknown) (unknown) 21 yo here (units (unknown) date) for IOB visit unknown) @11wk5d. An 8 week US was c/w LMP-TIFFANIE. H/o (unknown) (no (unknown) (unknown) 2 wks (units (unkno wn) date) unknown) (unknown) (no (unknown) (unknown) 20w 5d 131 lb (units ( unknown) date) unknown) (unknown) (no (unknown) (unknown) 27w 4d 139 lb (units ( unknown) date) unknown) (unknown) (no (unknown) (unknown) 30w 4d 140 lb (units ( unknown) date) unknown) (unknown) (no (unknown) (unknown) 32w 5d 146 lb (units ( unknown) date) unknown) (unknown) (no (unknown) (unknown) @ 12wks--did not (units (unknown) date) start yet @ 20 unknown) weeks, was going to re-start (unknown) (no (unknown) (unknown) ADHD (units (unkno wn) date) unknown) (unknown) (no (unknown) (unknown) Abnormal lab (units (u nknown) date) values 1st unknown) trimester: discussed (unknown) (no (unknown) (unknown) Acne (units (unkno wn) date) unknown) (unknown) (no (unknown) (unknown) Add'l Plan (units (unk nown) date) Details unknown) (unknown) (no (unknown) (unknown) Age/Sex: 22 / F (units (unknown) date) Date of Service: unknown) (unknown) (no (unknown) (unknown) Allergies (units (unkn own) date) unknown) (unknown) (no (unknown) (unknown) [place], [place] (units ( unknown) date) [id number] unknown) (unknown) (no (unknown) (unknown) Anemia (-2020) (units (unknown) date) unknown) (unknown) (no (unknown) (unknown) Anemia type: (units (u nknown) date) iron deficiency unknown) Iron deficiency anemia type: unspecified (unknown) (no (unknown) (unknown) Anesthesia (units (unk nown) date) unknown) (unknown) (no (unknown) (unknown) Aneuploidy (units (unk nown) date) Screening unknown) Offered: Accepted (undecided, will probably get quad (unknown) (no (unknown) (unknown) Anticipate , (units (unknown) date) [facility] unknown) (unknown) (no (unknown) (unknown) Anticipated (units (un known) date) course of unknown) care: discussed (unknown) (no (unknown) (unknown) Anxiety (units (unkno wn) date) unknown) (unknown) (no (unknown) (unknown) Assessment and (units (unknown) date) Plan unknown) (unknown) (no (unknown) (unknown) Attending Dr: (units ( unknown) date) Tony Carlton MD unknown) (unknown) (no (unknown) (unknown) Autism (units (unkno wn) date) unknown) (unknown) (no (unknown) (unknown) B6. On review of (units (unknown) date) options she unknown) desires Zofran, Rx sent. History of severe (unknown) (no (unknown) (unknown) BMI 25.8 (units (unkno wn) date) unknown) (unknown) (no (unknown) (unknown) BP 92/68 (units (unkno wn) date) unknown) (unknown) (no (unknown) (unknown) Bipolar disorder (units (unknown) date) unknown) (unknown) (no (unknown) (unknown) (units (unkno wn) date) Plan/Preferences unknown) (unknown) (no (unknown) (unknown) Planning (units (unknown) date) unknown) (unknown) (no (unknown) (unknown) Blood Pressure (units (unknown) date) Location Rt unknown) brachial (unknown) (no (unknown) (unknown) Blood (units (unkno wn) date) transfusions?: unknown) yes (Never had but would accept) (unknown) (no (unknown) (unknown) Breastfeed Preg (units (unknown) date) Comp Name unknown) (unknown) (no (unknown) (unknown) Brother Anxiety (units (unknown) date) unknown) (unknown) (no (unknown) (unknown) Caffeine use, (units ( unknown) date) Exercise and unknown) activity, work/environmenta l/hazards, Sexual (unknown) (no (unknown) (unknown) [place] with (units (unknown) date) her grandfather. unknown) Appears grandfather's no longer here with her (unknown) (no (unknown) (unknown) Cancer (units (unkno wn) date) unknown) (unknown) (no (unknown) (unknown) Childbirth (units (unk nown) date) Classes: unknown) discussed (unknown) (no (unknown) (unknown) Confirmed (units (unkn own) date) 11/03/22] unknown) (unknown) (no (unknown) (unknown) Continue present (units (unknown) date) management. unknown) Patient knows she can increase her nifedipine. (unknown) (no (unknown) (unknown) [facility]. (units (unknown) date) 20 week US normal unknown) (unknown) (no (unknown) (unknown) Current Estimate (units (unknown) date) 12/24/22 LMP unknown) (Certain) 32w 5d (unknown) (no (unknown) (unknown) Current (units (unkno wn) date) History unknown) (unknown) (no (unknown) (unknown) : 2000 (units (unknown) date) Acct:[id number] unknown) (unknown) (no (unknown) (unknown) Date of positive (units (unknown) date) home unknown) test: 04/10/22 (unknown) (no (unknown) (unknown) Date (units (unkno wn) date) unknown) (unknown) (no (unknown) (unknown) Del. Date (units (unkn own) date) GA/Weeks Labor unknown) Lgth Wt Sex Route Outcome Anesthesia Place (unknown) (no (unknown) (unknown) Delv (units (unkno wn) date) unknown) (unknown) (no (unknown) (unknown) Depression / (units (u nknown) date) anxiety is worse unknown) now, she does desire to restart medication. Rx (unknown) (no (unknown) (unknown) Depression Type: (units (unknown) date) depression during unknown) Trimester: second (unknown) (no (unknown) (unknown) Depression (units (unk nown) date) unknown) (unknown) (no (unknown) (unknown) Depression: (units (un known) date) discussed unknown) (unknown) (no (unknown) (unknown) Dept at (units (unkno wn) date) . unknown) (unknown) (no (unknown) (unknown) [facility] and (units (un known) date) [facility] returns unknown) today for her FRED visit now 30+ 4 weeks (unknown) (no (unknown) (unknown) [facility] is here (units (unknown) date) for a FRED visit @ unknown) 15wk5d. She is accompanied by her (unknown) (no (unknown) (unknown) [facility] presents (units (unknown) date) for an are OB unknown) visit at 20 weeks 5 days. [facility], (unknown) (no (unknown) (unknown) [facility] returns (units (unknown) date) today for her FRED unknown) visit now at 27+ 4 weeks gestational (unknown) (no (unknown) (unknown) Jen is now (units (unknown) date) 30 2+5 weeks' unknown) gestation. She has a total flat affect (unknown) (no (unknown) (unknown) Diabetes (units (unkno wn) date) mellitus unknown) (unknown) (no (unknown) (unknown) Diet and (units (unkno wn) date) Exercise unknown) (unknown) (no (unknown) (unknown) Documented By: (units (unknown) date) Tony Carlton MD unknown) 11/03/22 0919 (unknown) (no (unknown) (unknown) TIFFANIE Calculator (units (unknown) date) unknown) (unknown) (no (unknown) (unknown) EGA Weight BP (units ( unknown) date) UGlucose unknown) (unknown) (no (unknown) (unknown) Estimated (units (unkn own) date) Delivery Date unknown) Method Current (unknown) (no (unknown) (unknown) Expected (units (unkno wn) date) Delivery unknown) Route/Plan (unknown) (no (unknown) (unknown) Family History (units (unknown) date) (Reviewed unknown) 10/10/22 @ 21:45 by Linh Mcginnis, TAB, [facility]) (unknown) (no (unknown) (unknown) Father Diabetes (units (unknown) date) mellitus unknown) (unknown) (no (unknown) (unknown) Father of Baby: (units (unknown) date) same unknown) (unknown) (no (unknown) (unknown) [facility]) (unknown) (no (unknown) (unknown) First Trimester (units (unknown) date) Education unknown) Checklist (unknown) (no (unknown) (unknown) (all-5 week (units (unknown) date) SABs) unknown) (unknown) (no (unknown) (unknown) Genetic (units (unkno [...] practice discussed, personnel (unknown) (no (unknown) (unknown) Height 5 ft 3 in (units (unknown) date) unknown) (unknown) (no (unknown) (unknown) Hepatitis C risk (units (unknown) date) evaluation: low unknown) risk (unknown) (no (unknown) (unknown) History of (units (unk nown) date) Hepatitis B: No unknown) (unknown) (no (unknown) (unknown) History of (units (unk nown) date) Hepatitis C: No unknown) 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 (unknown) (no (unknown) (unknown) History of (units (unk nown) date) removal of skin unknown) mole (unknown) (no (unknown) (unknown) Hospital: (units (u nknown) date) unknown) (unknown) (no (unknown) (unknown) [facility], (units (unknown) date) deployed unknown) (unknown) (no (unknown) (unknown) Hx # (units (u nknown) date) Pregnancies 0 unknown) Elective abortions 0 (unknown) (no (unknown) (unknown) Hx # Term (units (unkn own) date) Pregnancies 0 unknown) Ectopic pregnancies 0 (unknown) (no (unknown) (unknown) Hyperlipidemia (units (unknown) date) unknown) (unknown) (no (unknown) (unknown) Hypertension (units (u nknown) date) unknown) (unknown) (no (unknown) (unknown) Infant will be [...] Staff unknown) (unknown) (no (unknown) (unknown) Intake Note: (units (u nknown) date) unknown) (unknown) (no (unknown) (unknown) Intake performed (units (unknown) date) by: Michele Saha unknown) (unknown) (no (unknown) (unknown) Intake (units (unkno wn) date) unknown) (unknown) (no (unknown) (unknown) LMP-TIFFANIE (units (unkno wn) date) unknown) (unknown) (no [...] (unknown) (unknown) Medical History (units (unknown) date) (Reviewed unknown) 10/10/22 @ 21:45 by Linh Mcginnis, TAB, [facility]) (unknown) (no (unknown) (unknown) Medications (units (un known) date) unknown) (unknown) (no (unknown) (unknown) Mental health (units ( unknown) date) problem unknown) (unknown) (no (unknown) (unknown) Mother (units (unkno wn) date) Gestational unknown) diabetes (unknown) (no (unknown) (unknown) N Yes no 130 32 (units (unknown) date) Breech absent 2wk unknown) (unknown) (no (unknown) (unknown) N Yes no 138 30 (units (unknown) date) Vertex absent unknown) 50%/CL/-3 (unknown) (no (unknown) (unknown) N Yes no 144 20 (units (unknown) date) absent 4wk unknown) (unknown) (no (unknown) (unknown) No Known Drug (units ( unknown) date) Allergies Allergy unknown) (Verified 11/03/22 09:20) (unknown) (no (unknown) (unknown) Notes (units (unkno wn) date) unknown) (unknown) (no (unknown) (unknown) Number of Living (units (unknown) date) Children 0 unknown) (unknown) (no (unknown) (unknown) Number of (units (unkn own) date) fetuses:: Single unknown) (unknown) (no (unknown) (unknown) Nutrition and (units ( unknown) date) weight gain unknown) counseling: special diet: discussed (unknown) (no (unknown) (unknown) OB Office Visit (units (unknown) date) unknown) (unknown) (no (unknown) (unknown) OB Visit Log (units (u nknown) date) unknown) (unknown) (no (unknown) (unknown) On control (units (unknown) date) at conception?: unknown) No (unknown) (no (unknown) (unknown) Other Estimates (units (unknown) date) 12/22/22 unknown) Ultrasound #1 33w 0d (unknown) (no (unknown) (unknown) Ovarian cyst (units (u nknown) date) () unknown) (unknown) (no (unknown) (unknown) PFSH (units (unkno wn) date) unknown) (unknown) (no (unknown) (unknown) PID (acute (units (unk nown) date) pelvic unknown) inflammatory disease) (unknown) (no (unknown) (unknown) PTSD (units (unkno wn) date) (post-traumatic unknown) stress disorder) () (unknown) (no (unknown) (unknown) Para 0 (units [...] date) unknown) (unknown) (no (unknown) (unknown) Patient was (units (un known) date) previously unknown) scheduled for iron infusions but this has not been (unknown) (no (unknown) (unknown) Patient will be (units (unknown) date) expecting a call unknown) from Infusion Center (unknown) (no (unknown) (unknown) Patient's age 37 (units (unknown) date) years or older as unknown) of estimated date of delivery: No (unknown) (no (unknown) (unknown) [facility] (unkno wn) [id number] (unknown) (no (unknown) (unknown) 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: (units ( unknown) date) CHAR [place] unknown) (unknown) (no (unknown) (unknown) Personal history (units (unknown) date) of STD: other unknown) (PID (unknown bacterial agent) in 12/2021) (unknown) (no (unknown) (unknown) Personal history (units (unknown) date) of genital unknown) herpes: No (unknown) (no (unknown) (unknown) Plan (units (unkno wn) date) unknown) (unknown) (no (unknown) (unknown) Position Sitting (units (unknown) date) unknown) (unknown) (no (unknown) (unknown) (units (unkn own) date) History unknown) (unknown) (no (unknown) (unknown) type:: (units (unknown) date) First unknown) (unknown) (no (unknown) (unknown) (units (unkno wn) date) Education unknown) (unknown) (no (unknown) (unknown) Initial (units (unknown) date) Assessment unknown) (unknown) (no (unknown) (unknown) (units (unkno wn) date) Specific unknown) Issues/Plans (unknown) (no (unknown) (unknown) (units (unkno wn) [...] own) date) unknown) (unknown) (no (unknown) (unknown) Pt here for OB (units (unknown) date) Check unknown) (unknown) (no (unknown) (unknown) Qualifiers: (units (un known) date) unknown) (unknown) (no (unknown) (unknown) Rash or viral (units ( unknown) date) illness since unknown) last menstrual period: No (unknown) (no (unknown) (unknown) Reason For Visit (units (unknown) date) unknown) (unknown) (no (unknown) (unknown) Recent travel (units ( unknown) date) outside of unknown) country?: No (unknown) (no (unknown) (unknown) Recurrent UTI (units ( unknown) date) () unknown) (unknown) (no (unknown) (unknown) Recurrent (units [...] siblings w/ autism) (unknown) (no (unknown) (unknown) Rh positive, (units (u nknown) date) will check unknown) results today, RhoGAM as needed. (unknown) (no (unknown) (unknown) Sabs x4 @5-6 (units (u nknown) date) weeks. She passed unknown) a small clot a week ago, then had BRB yesterday (unknown) (no (unknown) (unknown) Safety (units (unkno wn) date) unknown) (unknown) (no (unknown) (unknown) Schizophrenia (units ( unknown) date) unknown) (unknown) (no (unknown) (unknown) Seizures (-2002) (units (unknown) date) unknown) (unknown) (no (unknown) (unknown) Signed By: (units (unk nown) date) <Electronically unknown) signed by Tony Carlton MD> (unknown) (no (unknown) (unknown) Signed (units (unkno wn) date) unknown) (unknown) (no (unknown) (unknown) Sister Anxiety (units (unknown) date) unknown) (unknown) (no (unknown) (unknown) Sister (units (unkno wn) date) Depression unknown) (unknown) (no (unknown) (unknown) Smoking Status: (units (unknown) date) Former smoker unknown) (former vape use, quit) (unknown) (no (unknown) (unknown) Social History (units (unknown) date) unknown) (unknown) (no (unknown) (unknown) Status: Acute (units ( unknown) date) unknown) (unknown) (no (unknown) (unknown) Support (units (unkno wn) date) Person(s):: unknown) [facility] (unknown) (no (unknown) (unknown) Surgical History (units (unknown) date) (Reviewed unknown) 10/10/22 @ 21:45 by Linh Mcginnis CNM, [facility]) (unknown) (no (unknown) (unknown) Surrogate (units (unkn own) date) ?: no unknown) (unknown) (no (unknown) (unknown) Symptoms since (units (unknown) date) LMP: Reports unknown) amenorrhea, nausea, vomiting, fatigue, breast (unknown) (no (unknown) (unknown) TR No no 138 16 (units (unknown) date) absent 4wk unknown) (unknown) (no (unknown) (unknown) TR No no 162 12 (units (unknown) date) absent 4wk unknown) (unknown) (no (unknown) (unknown) TR Yes no 142 28 (units (unknown) date) absent 3 wks unknown) (unknown) (no (unknown) (unknown) Teratogen (units (unkn [...] (unknown) date) unknown) (unknown) (no (unknown) (unknown) Trimester:: 3rd (units (unknown) date) Trimester unknown) (28wks-Del) (unknown) (no (unknown) (unknown) Type(s) of (units (unk nown) date) exercise: walking unknown) (unknown) (no (unknown) (unknown) UProtein Movement (units (unknown) date) PreLabor FHR Fndl unknown) Ht Pres Edema Cerv Exam US/Comment Next Appt (unknown) (no (unknown) (unknown) Ultrasound (units (unk nown) date) Details:: 05/17/22 unknown) US @ [facility]: SI[facility], CRL c/w 8wk5d, US-TIFFANIE 12/22/22, c/w (unknown) (no (unknown) (unknown) Ultrasound (units (unk nown) date) unknown) (unknown) (no (unknown) (unknown) Varicella/chicke (units (unknown) date) n pox status: unknown) immunized (unknown) (no (unknown) (unknown) Visit Date: (units (un known) date) 09/28/22 Last unknown) Updated by: Chaka Flores MD (unknown) (no (unknown) (unknown) Visit Date: (units (un known) date) 10/19/22 Last unknown) Updated by: Chaka Flores MD (unknown) (no (unknown) (unknown) Visit Date: (units (un known) date) 11/03/22 Last unknown) Updated by: Tony Carlton MD (unknown) (no (unknown) (unknown) Visit Date: (units (un known) date) 06/09/22 Last unknown) Updated by: Tyesha Brito MD (unknown) (no (unknown) (unknown) Visit Date: (units (un known) date) 07/07/22 Last unknown) Updated by: Tyesha Brito MD (unknown) (no (unknown) (unknown) Visit Date: (units (un known) date) 08/11/22 Last unknown) Updated by: Tyesha Brito MD (unknown) (no (unknown) (unknown) Visit Reasons: (units (unknown) date) OB * nithya unknown) (unknown) (no (unknown) (unknown) Vitals (units (unkno wn) date) unknown) (unknown) (no (unknown) (unknown) Vitamins and (units (u nknown) date) iron, Diet and unknown) weight gain, Fish and mercury intake, Smoking, (unknown) (no (unknown) (unknown) WG (units (unkno wn) date) unknown) (unknown) (no (unknown) (unknown) Weeks (units (unkno wn) date) gestation:: 32 unknown) (unknown) (no (unknown) (unknown) Weight 146 lb (units ( unknown) date) unknown) (unknown) (no (unknown) (unknown) Zika virus (units (unk nown) date) exposure: No unknown) (unknown) (no (unknown) (unknown) a lot of nausea (units (unknown) date) with emesis, may unknown) last whole day. No improvement with Unisom / (unknown) (no (unknown) (unknown) activity, X-ray (units (unknown) date) exposure, unknown) Medication use, Sauna/hot tub use, Dental care, (unknown) (no (unknown) (unknown) administer (units (unk nown) date) currently for unknown) about 30 minutes. She states she will try to get (unknown) (no (unknown) (unknown) advised her that (units (unknown) date) she should return unknown) if she felt regular contractions. She (unknown) (no (unknown) (unknown) after she is had (units (unknown) date) several iron unknown) infusions (unknown) (no (unknown) (unknown) again reviewed (units (unknown) date) and follow-up unknown) will be in 2 weeks or as needed. (unknown) (no (unknown) (unknown) age. She was (units (u nknown) date) seen on the unknown) center last night with possible leakage of fluid (unknown) (no (unknown) (unknown) alcohol intake: (units (unknown) date) never unknown) (unknown) (no (unknown) (unknown) amh (units (unkno wn) date) unknown) (unknown) (no (unknown) (unknown) anyone in either (units (unknown) date) family with: unknown) (unknown) (no (unknown) (unknown) approved yet she (units (unknown) date) says that she unknown) does feel weak and I explained that with her (unknown) (no (unknown) (unknown) bleeding in 1st (units (unknown) date) trimester, unknown) resolved. Reported retroplacental bleed on US @ (unknown) (no (unknown) (unknown) blood, abnormal (units (unknown) date) vaginal discharge unknown) or leakage of fluid. She is feeling routine (unknown) (no (unknown) (unknown) but AmniSure was (units (unknown) date) negative and unknown) evaluation showed no issues of concern. Review of (unknown) (no (unknown) (unknown) caffeine: Yes (units ( unknown) date) (occasionally, unknown) aware of 200mg limit) (unknown) (no (unknown) (unknown) carbon monox (units (u nknown) date) detector in home: unknown) Yes (unknown) (no (unknown) (unknown) cfDNA low risk, (units (unknown) date) girl, MSAFP unknown) normal (unknown) (no (unknown) (unknown) check today (units (un known) date) shows the cervix unknown) to be 50% effaced/closed/-3 /soft/intermediat e (unknown) (no (unknown) (unknown) coenzyme Q10 100 (units (unknown) date) mg capsule (Co unknown) Q-10) 100 mg PO DAILY 04/27/22 [History (unknown) (no (unknown) (unknown) cramping and/or (units (unknown) date) leakage of fluid. unknown) Workup has been negative to date. Cervical (unknown) (no (unknown) (unknown) current (units (unkno wn) date) occupational unknown) exposures/hazards : No (unknown) (no (unknown) (unknown) current plan. (units ( unknown) date) Reports she did unknown) have a suicide attempt this december, was (unknown) (no (unknown) (unknown) daily for the (units ( unknown) date) last week. unknown) Options for mitigation discussed and stool culture/O+P (unknown) (no (unknown) (unknown) daily servings (units (unknown) date) fruits/ve-4 unknown) (unknown) (no (unknown) (unknown) deployed in (units (un known) date) [place] was on unknown) video chat for the visit. She reports some increased (unknown) (no (unknown) (unknown) depression, (units (un known) date) anxiety with h/o unknown) suicide attempt 12/2021 restarted meds, Sertraline (unknown) (no (unknown) (unknown) depression, but (units (unknown) date) was trying to unknown) hold off on starting the sertraline since she (unknown) (no (unknown) (unknown) depression. (units (un known) date) Reports she unknown) currently has some suicidal thoughts but without any (unknown) (no (unknown) (unknown) described, visit (units (unknown) date) schedule unknown) reviewed, ultrasounds policy reviewed, coverage 24 (unknown) (no (unknown) (unknown) directed her to (units (unknown) date) go to ED. She unknown) reports that low-grade uterine activity, (unknown) (no (unknown) (unknown) discussed, (units (unk nown) date) tuberculosis unknown) exposure discussed, CMV discussed, Toxoplasmosis (unknown) (no (unknown) (unknown) do a Glucola (units (u nknown) date) between 26-28 unknown) weeks and we could send lab slip. Also if no care, (unknown) (no (unknown) (unknown) do you feel safe (units (unknown) date) at home: Yes unknown) (unknown) (no (unknown) (unknown) done at [facility] (units (unknown) date) health showed unknown) normal anatomy, placenta and normal cervical (unknown) (no (unknown) (unknown) duration: 15-30 (units (unknown) date) minutes/day unknown) (unknown) (no (unknown) (unknown) during the past (units (unknown) date) year weight has: unknown) other ([id number] lb) (unknown) (no (unknown) (unknown) education level: (units (unknown) date) high school unknown) (unknown) (no (unknown) (unknown) episodes where (units (unknown) date) she has had more unknown) than 5 or 6 contractions in an hour, therefore (unknown) (no (unknown) (unknown) erk (units (unkno wn) date) unknown) (unknown) (no (unknown) (unknown) evaluation of (units ( unknown) date) gentle unknown) endocervical sampling slide. Patient has had several (unknown) (no (unknown) (unknown) feeling (units ( unknown) date) movement yet. Her unknown) cell free DNA was low risk, girl. Remainder of (unknown) (no (unknown) (unknown) ferrous sulfate (units (unknown) date) 325 mg (65 mg unknown) iron) tablet 325 mg PO DAILY 04/27/22 [History (unknown) (no (unknown) (unknown) movement. (units (unknown) date) Her MSAFP was unknown) normal. Her 20 week anatomy ultrasound, (unknown) (no (unknown) (unknown) fire (units (unkno wn) date) 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 unknown) home: Yes (unknown) (no (unknown) (unknown) firearms in (units (un known) date) home: Yes unknown) firearms unloaded and locked: Yes (unknown) (no (unknown) (unknown) folic acid 1 mg (units (unknown) date) tablet 0.5 mg PO unknown) DAILY 04/27/22 [History Confirmed 11/03/22] (unknown) (no (unknown) (unknown) gestational age. (units (unknown) date) She is had 2 more unknown) visits to the center regarding (unknown) (no (unknown) (unknown) grandfather (units (un known) date) today who came unknown) from [place] to stay with her through (unknown) (no (unknown) (unknown) have occurred. (units (unknown) date) If there are any unknown) questions, please contact the Medical Records (unknown) (no (unknown) (unknown) hemoglobin at (units ( unknown) date) 9.4 last unknown) determination that she should feel remarkably better (unknown) (no (unknown) (unknown) her record shows (units (unknown) date) that she has not unknown) yet had her base line labs but those (unknown) (no (unknown) (unknown) hospitalized. (units ( unknown) date) Sees a Counselor. unknown) She had used both sertraline and Lexapro in (unknown) (no (unknown) (unknown) hours a day and (units (unknown) date) participation of unknown) father in care and office visits (unknown) (no (unknown) (unknown) household (units (unkn own) date) members: spouse unknown) (unknown) (no (unknown) (unknown) housing: (units (unkno wn) date) apartment unknown) (unknown) (no (unknown) (unknown) in a few weeks. (units (unknown) date) Advised her to unknown) continue with pelvic rest for now . She reports (unknown) (no (unknown) (unknown) in the area. (units (u nknown) date) Discussed trying unknown) to establish with care in [place] (unknown) (no (unknown) (unknown) iron deficiency (units (unknown) date) Qualified unknown) Code(s): D50.9 - Iron deficiency anemia, unspecified (unknown) (no (unknown) (unknown) irritability was (units (unknown) date) seen on the unknown) monitor but her cervix was not dilated. They (unknown) (no (unknown) (unknown) is going to lab (units (unknown) date) again today, will unknown) also try to draw her MSAFP today (our lab (unknown) (no (unknown) (unknown) jw (units (unkno wn) date) unknown) (unknown) (no (unknown) (unknown) knows moods can (units (unknown) date) worsen during unknown) . She was considering starting now (unknown) (no (unknown) (unknown) length, 3.6 cm. (units (unknown) date) She reports that unknown) she will be out of town until approximately 31 (unknown) (no (unknown) (unknown) like start of (units ( unknown) date) menses, stopped unknown) now. Seen in ED in [place] yesterday, (unknown) (no (unknown) (unknown) lives (units (unkno wn) date) independently: unknown) Yes (unknown) (no (unknown) (unknown) marital status: (units (unknown) date) unknown) (unknown) (no (unknown) (unknown) may occur. (units (unk nown) date) Occasional unknown) wrong-word or 'sound-alike' substitutions may have (unknown) (no (unknown) (unknown) minutes x up to (units (unknown) date) 4 doses PRN unknown) increased contraction frequency but to contact the (unknown) (no (unknown) (unknown) nifedipine 10 mg (units (unknown) date) capsule 10 mg PO unknown) Q20M PRN cramping #30 caps 10/19/22 [Rx (unknown) (no (unknown) (unknown) nifedipine 60 mg (units (unknown) date) tablet,extended unknown) release 60 mg PO DAILY #30 tabs 10/19/22 [Rx (unknown) (no (unknown) (unknown) nifedipine. She (units (unknown) date) has also been in unknown) experiencing diarrhea with as many as 5-6 BMs (unknown) (no (unknown) (unknown) number of (units (unkn own) date) children: 0 unknown) (unknown) (no (unknown) (unknown) occupational (units (u nknown) date) status: unknown) unemployed (unknown) (no (unknown) (unknown) occurred due to (units (unknown) date) the inherent unknown) limitations of voice recognition software. Please (unknown) (no (unknown) (unknown) of depression in (units (unknown) date) the past, unknown) re-initiation would be sensible at this point the (unknown) (no (unknown) (unknown) office or BC if (units (unknown) date) contractions unknown) don't subside promptly with initiation of PRN (unknown) (no (unknown) (unknown) ondansetron 4 mg (units (unknown) date) disintegrating unknown) tablet 4 mg PO Q8H PRN nausea and vomiting #20 (unknown) (no (unknown) (unknown) ordered. Her (units (u nknown) date) baby remains unknown) active but she denies any bleeding. PTL precautions (unknown) (no (unknown) (unknown) otherwise. No (units ( unknown) date) cramping, unknown) bleeding, LOF or abnormal vaginal discharge. Not (unknown) (no (unknown) (unknown) pain. Has had a (units (unknown) date) stabbing pain unknown) about every 10 minutes, when ambulating, no pain (unknown) (no (unknown) (unknown) pets and (units (unkno wn) date) animals: Yes (1 unknown) dog 1 cat; aware of toxo) (unknown) (no (unknown) (unknown) placenta. She is (units (unknown) date) understandably unknown) very nervous. Ultrasound today shows viable 11 (unknown) (no (unknown) (unknown) position. No (units (u nknown) date) fluid in unknown) posterior fornix today and no ferning can be detected on (unknown) (no (unknown) (unknown) precautions, (units (u nknown) date) Listeriosis unknown) prevention and Rubella Immunization (unknown) (no (unknown) (unknown) will (units (unknown) date) still proceed unknown) normally, with retroplacental blood resolving Will (unknown) (no (unknown) (unknown) , (units (unk nown) date) second trimester; unknown) F32.A - Depression, unspecified (unknown) (no (unknown) (unknown) . Her (units (unknown) date) baby remains unknown) active but she denies contractions, bleeding, or (unknown) (no (unknown) (unknown) prenat.vits,jack, (units (unknown) date) [id number] 1 unknown) tab PO DAILY 04/27/22 [History Confirmed (unknown) (no (unknown) (unknown) labs (units ( unknown) date) were not drawn as unknown) they could not get enough blood with small (unknown) (no (unknown) (unknown) read the note (units ( unknown) date) carefully and unknown) recognize, using context, where these substitutions (unknown) (no (unknown) (unknown) reassured that (units ( unknown) date) there was no unknown) significant risk to the and given her history (unknown) (no (unknown) (unknown) reports she has (units (unknown) date) not had any unknown) persistent cramping since. Denies spotting of (unknown) (no (unknown) (unknown) reports (units (unkno wn) date) ultrasound showed unknown) baby with heartbeat, and blood seen behind the (unknown) (no (unknown) (unknown) screen if (units (unkn own) date) covered. For cell unknown) free DNA with labs today. Believe she is (unknown) (no (unknown) (unknown) screen) (units (unkno wn) date) unknown) (unknown) (no (unknown) (unknown) seatbelt use: (units ( unknown) date) always unknown) (unknown) (no (unknown) (unknown) second hand (units (un known) date) exposure: Yes unknown) (while visiting family (mom smokes)) (unknown) (no (unknown) (unknown) send for the 11 (units (unknown) date) wk US; if areas unknown) seen was large, then will repeat the ultrasound (unknown) (no (unknown) (unknown) sertraline 25 mg (units (unknown) date) tablet See Rx unknown) Instructions PO .COMPLEX #60 tabs 06/09/22 [Rx (unknown) (no (unknown) (unknown) sertraline. (units (un known) date) Desires unknown) aneuploidy/ NTD screening, desires cell free DNA assay (unknown) (no (unknown) (unknown) significant (units (un known) date) change in vaginal unknown) discharge. 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 She unknown) reports what sounds like left round ligament (unknown) (no (unknown) (unknown) software. (units (unkn own) date) Although every unknown) effort is made to edit content, regulatory technician errors (unknown) (no (unknown) (unknown) special mirella (units ( unknown) date) needs: No unknown) (unknown) (no (unknown) (unknown) started (units (unkno wn) date) sertraline but unknown) intends to do so in the next couple of days. Patient (unknown) (no (unknown) (unknown) substance use (units ( unknown) date) type: marijuana unknown) (quit when she learned she was ) (unknown) (no (unknown) (unknown) tabs 06/09/22 (units ( unknown) date) [Rx Confirmed unknown) 11/03/22] (unknown) (no (unknown) (unknown) takes the 10 mg (units (unknown) date) occasionally when unknown) she has a run of uterine contractions that (unknown) (no (unknown) (unknown) tenderness, (units (un known) date) urinary unknown) frequency, irritability, bloating and other (heartburn) (unknown) (no (unknown) (unknown) the nifedipine (units (unknown) date) on a daily basis unknown) due to side effects headaches etc.. She still (unknown) (no (unknown) (unknown) the past with (units ( unknown) date) both helping. unknown) Most recently on Lexapro which she stopped about 2 (unknown) (no (unknown) (unknown) this is no more (units (unknown) date) than a couple of unknown) times a week (unknown) (no (unknown) (unknown) though before (units ( unknown) date) traveling. I unknown) encouraged her to start the sertraline now. About 2 (unknown) (no (unknown) (unknown) though she is (units ( unknown) date) traveling unknown) shortly. Otherwise to try to find a lab where she can (unknown) (no (unknown) (unknown) through (units (unkno wn) date) pharmacy. unknown) (unknown) (no (unknown) (unknown) to buy one. (units (un known) date) Discussed flu unknown) vaccination, she desires but we had no one to (unknown) (no (unknown) (unknown) to get her blood (units (unknown) date) pressure checked unknown) in about a month if anyone has a BP cuff, or (unknown) (no (unknown) (unknown) today, noting (units ( unknown) date) that she started unknown) her sertraline 2 weeks ago. She stopped taking (unknown) (no (unknown) (unknown) travel history: (units (unknown) date) recent (domestic unknown) only) (unknown) (no (unknown) (unknown) trimester (units (unkn own) date) Qualified unknown) Code(s): O99.342 - Other mental disorders complicating (unknown) (no (unknown) (unknown) ultrasound for (units (unknown) date) 20 weeks. unknown) (unknown) (no (unknown) (unknown) usually does at (units (unknown) date) 16 weeks onward, unknown) so she is a day early). Schedule anatomy (unknown) (no (unknown) (unknown) veins. She (units (unk nown) date) reports 2 unknown) additional attempts at blood draws without success. She (unknown) (no (unknown) (unknown) water heater (units (u nknown) date) temp set < 120 unknown) deg: No (Will call landlord to adjust ) (unknown) (no (unknown) (unknown) week (units (unknown) date) ,? area of unknown) retroplacental blood. I reassured her that commonly (unknown) (no (unknown) (unknown) weeks ago she (units ( unknown) date) called with unknown) persistent bad cramping when in [place] and I (unknown) (no (unknown) (unknown) weeks prior to (units (unknown) date) positive unknown) test, having a feeling she may be . (unknown) (no (unknown) (unknown) weeks, in (units (unkn own) date) [place] with unknown) in loss for about 6 weeks, then 1.5-2 weeks in (unknown) (no (unknown) (unknown) well-balanced (units ( unknown) date) diet: daily or unknown) most days (unknown) (no (unknown) (unknown) will be drawn (units ( unknown) date) today along with unknown) her 1 hour GDM screen H+H. Patient has not yet (unknown) (no (unknown) (unknown) will be in 3 (units (u nknown) date) weeks or as unknown) needed. (unknown) (no (unknown) (unknown) will initiate (units ( unknown) date) daily nifedipine unknown) 60 mg and patient advised to take 10 mg PO q 20 (unknown) (no (unknown) (unknown) working smoke (units ( unknown) date) detector in home: unknown) Yes Result panel [id number] (unknown) (no date) (unknown) (unknown) 1-5/HPF (units (unkn own) unknown) (unknown) (no date) (unknown) (unknown) 10-30 /HPF (units (un known) unknown) (unknown) (no date) (unknown) (unknown) 10-30 /HPF (units (un known) unknown) (unknown) (no date) (unknown) (unknown) 30-100/HPF (units (un known) unknown) (unknown) (no date) (unknown) (unknown) Many (>30) (units (un known) unknown) (unknown) (no date) (unknown) (unknown) ORANGE (units (unkn own) unknown) (unknown) (no date) (unknown) (unknown) ORANGE (units (unkn own) unknown) (unknown) (no date) (unknown) (unknown) SL CLOUDY (units (unk nown) unknown) (unknown) (no date) (unknown) (unknown) Specimen (units (unkn own) Cultured unknown) (unknown) (no date) (unknown) (unknown) Test not (units (unkn own) performed unknown) (unknown) (no date) (unknown) (unknown) Test not (units (unkn own) performed unknown) (unknown) (no date) (unknown) (unknown) Test not (units (unkn own) performed unknown) (unknown) (no date) (unknown) (unknown) Test not e.u./dl (unkn own) performed (unknown) (no date) (unknown) (unknown) Test not g/dl (unkn own) performed Social History date description facility 2022-09-28 00:00 Ex-smoker (finding) [facility] 2022-10-19 00:00 Ex-smoker (finding) [facility] 2022-11-03 00:00 Ex-smoker ([facility] Vital Signs date measurement value units 2022-09-28 00:00 BMI 24.6 kg/m2 2022-09-28 00:00 BP_diastolic 66 mmHg 2022-09-28 00:00 BP_systolic 98 mmHg 2022-09-28 00:00 height_metric 160.02 cm 2022-09-28 00:00 height_standard 63 in 2022-09-28 00:00 weight_metric 63.04 kg 2022-09-28 00:00 weight_standard 138.98 lb 2022-10-19 00:00 BMI 24.7 kg/m2 2022-10-19 00:00 BP_diastolic 62 mmHg 2022-10-19 00:00 BP_systolic 98 mmHg 2022-10-19 00:00 height_metric 160.02 cm 2022-10-19 00:00 height_standard 63 in 2022-10-19 00:00 weight_metric 63.5 kg 2022-10-19 00:00 weight_standard 139.99 lb 2022-11-03 00:00 BMI 25.8 kg/m2 2022-11-03 00:00 BP_diastolic 68 mmHg 2022-11-03 00:00 BP_systolic 92 mmHg 2022-11-03 00:00 height_metric 160.02 cm 2022-11-03 00:00 height_standard 63 in 2022-11-03 00:00 weight_metric 66.22 kg 2022-11-03 00:00 weight_standard 145.99 lb
[2022-11-11 21:21] VITALS: BP 125/68
== END 2022-11-11 21:00 | disposition home or self-care (01) ==
LOC: ED 19:02 → UNDOADMOB 21:00 → FBP 21:00
DX: O99.891 Other specified diseases and conditions complicating pregnancy (principal); Z3A.34 34 weeks gestation of pregnancy; N39.0 Urinary tract infection, site not specified; B96.89 Other specified bacterial agents as the cause of diseases classified elsewhere
CPT/HCPCS: 81001; 81003; 87086; 99283

== ENCOUNTER 2022-11-11 21:47 | Outpatient (CLI) | payer OTHER ==
--- NOTE | 2022-11-11 22:29 | PROVIDER PROGRESS NOTE ---
- HPI Chief Complaint: Labor - Procedures OB Procedure Performed: NST Diagnosis/Indication for NST: labor NST Procedure: EFM: 130, moderate variability, positive 15x15 accelerations, no decelerations Western: irritability NST reactive Performed and read 11/11/22 Service Date of procedure: 11/11/22 - Plan Plan: 22yo at 33.6w presenting for cramping and LOF. Denies vaginal bleeding. Good movement. Evaluated in ED this evening and treated for UTI. records from reviewed. 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
[2022-11-11 22:33] LABS: RUPTURE OF MEMBRANES PLUS NEGATIVE (NEGATIVE)
[2022-11-11 22:53] VITALS: BP 103/69
== END 2022-11-11 22:45 | disposition home or self-care (01) ==
LOC: WFO 21:47 → FBP 21:48 → WFO 22:45
PROVIDERS: ATTEND Obstetrics & Gynecology
DX: O47.03 False labor before 37 completed weeks of gestation, third trimester (principal); O23.43 Unspecified infection of urinary tract in pregnancy, third trimester; N39.0 Urinary tract infection, site not specified; Z3A.33 33 weeks gestation of pregnancy; B96.89 Other specified bacterial agents as the cause of diseases classified elsewhere; O99.343 Other mental disorders complicating pregnancy, third trimester; F32.A Depression, unspecified; F41.9 Anxiety disorder, unspecified
CPT/HCPCS: 59025; 81001; 84112; 87086; 99283; A9270; 81003; 99215

== ENCOUNTER 2023-01-02 20:20 | Emergency (ER) | payer MEDICAID, OTHER ==
[2023-01-02] MEDS ORDERED: SODIUM CHLORIDE 0.9% 1,000 ML IV STA (20:41)
--- NOTE | 2023-01-02 20:53 | ED Physician Documentation ---
PD HPI FEMALE - Stated complaint Stated Complaint: FEMALE /DIZZINESS - Chief complaint Chief Complaint: Abd Pain - History obtained from History obtained from: Patient - Additional information Additional information: Patient is a 22-year-old female presenting for eval ration of vaginal bleeding that has been ongoing since she delivered on December 18 at [facility]. Patient reports having a vaginal delivery at 39 weeks with a first-degree tear that was repaired. She reports having bright red bleeding for the past 4 to 5 days. She did reach out to her OB, Dr. Jean Baptiste, at [facility] who instructed her to continue to monitor this. While at the grocery store [facility] she had a brief episode where she felt lightheaded which concerned her prompting her to come to the emergency department. She reports using 2 pads today. There have been no clots. She reports intermittently having some lower abdominal cramping. Review of Systems Constitutional: denies: Fever Cardiac: denies: Chest pain / pressure Respiratory: denies: Dyspnea GI: denies: Abdominal Pain : reports: Vaginal bleeding Neurologic: denies: Syncope PD PAST MEDICAL HISTORY - Past Medical History Cardiovascular: None Respiratory: None Neuro: None Endocrine/Autoimmune: None GI: None PHARMACOGNOSIST: None : None HEENT: None Psych: Depression, Anxiety Musculoskeletal: None Derm: None - Past Surgical History Past Surgical History: No General: Other Ortho: Other - Present Medications Home Medications: Ambulatory Orders Medication Instructions Recorded Confirmed Cephalexin Suspension [Keflex] 500 mg PO QID 7 Days #280 ml 11/11/22 NIFEdipine [Procardia] 10 mg PO DAILY PRN 11/11/22 11/11/22 Sertraline [Zoloft] 25 mg PO DAILY 11/11/22 11/11/22 - Allergies Allergies/Adverse Reactions: Allergies Allergy/AdvReac Type Severity Reaction Status Date / Time No Known Drug Allergies Allergy Verified 01/02/23 20:23 - Social History Does the pt smoke?: No Smoking Status: Never smoker Does the pt drink ETOH?: No Does the pt have substance abuse?: No - Immunizations Immunizations are current?: Yes - POLST Patient has POLST: No PD ED PE NORMAL - General General: Alert and oriented X 3, No acute distress, Well developed/nourished - HEENT HEENT: Atraumatic - Neck Neck: Supple, no meningeal sign - Cardiac Cardiac: RRR, No murmur - Respiratory Respiratory: No respiratory distress, Clear bilaterally - Abdomen Abdomen: Normal bowel sounds, Soft, Non distended - 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, Other (External exam only, no visible blood or active bleeding) - Derm Derm: Warm and dry - Extremities Extremities: No edema - Neuro Neuro: Normal speech Results - Vitals Vitals: Vital Signs - 24 hr 01/02/23 01/02/23 20:23 22:28 Temperature 36.5 C Heart Rate 89 64 Respiratory 16 15 Rate Blood Pressure 112/78 104/73 O2 Saturation 99 98 Oxygen O2 Source Room air - Labs Labs: Laboratory Tests 01/02/23 01/02/23 01/02/23 20:50 20:50 20:50 WBC 8.2 RBC 5.47 H Hgb 14.6 Hct 45.7 MCV 83.5 MCH 26.7 L MCHC 31.9 L RDW 22.0 H Plt Count 319 MPV 9.4 Neut # (Auto) 4.7 Lymph # (Auto) 2.5 Power # (Auto) 0.6 Eos # (Auto) 0.2 Baso # (Auto) 0.1 Absolute Nucleated RBC 0.00 Nucleated RBC % 0.0 Manual Slide Review Indicated Platelet Estimate NORMAL (130-450,000) Platelet Morphology NORMAL APPEARANCE RBC Morph Micro Appear 3+ ANISOCYTOSIS Sodium 137 Potassium 3.4 L Chloride 105 Carbon Dioxide 23 Anion Gap 9.0 BUN 15 Creatinine 0.5 Estimated GFR (MDRD) 157 Glucose 102 H Calcium 9.2 Total Bilirubin 0.6 AST 39 ALT 43 Alkaline Phosphatase 97 Total Protein 7.7 Albumin 4.0 Globulin 3.7 Albumin/Globulin Ratio 1.1 HCG, Quant 4.94 PD Medical Decision Making - ED course Complexity details: reviewed results, re-evaluated patient, d/w patient ED course: Patient is a 22-year-old female who is approximately 2 weeks presenting for evaluation of vaginal bleeding for the last several days that has been bright red and feeling Lightheaded earlier today. Her vital signs appear stable. CBC, chemistries and hCG quant were reviewed. Her hemoglobin and hematocrit appear stable with no signs of needing a blood transfusion. Her hCG quant is 4. An ultrasound was obtained which shows a thickened endometrium with some signs of vascularity. I did consult with our on-call OB who feels that the patient is stable for outpatient follow-up with her own admissions dean. She does not have any significant bleeding here.She is feeling better after IV fluids. Her potassium was 3.4 and she was given a potassium pill. She understands the need for close follow-up with Dr. Jean Baptiste at [facility] as well as concerning symptoms to return for. 2255 - Discussed with Dr. Martin. Reviewed at presentation, labs and ultrasound including concerns for possible retained products of conception. He feels that given her symptoms and low hCG that she can follow-up with her own OB and does not require any procedure or specific treatments tonight. Departure - Departure Disposition: 01 Home, Self Care Clinical Impression: bleeding Condition: Stable Follow-Up: JEFF JEAN BAPTISTE MD [Physician No Access] - Tomorrow Comments: Your labs are reassuring. Your hemoglobin is stable at 14. Your hCG level is 4. We have reviewed your labs and ultrasound tonight with our on-call OB doctor. At this time you do not need any procedures or further interventions in the hospital but he does recommend you have close follow-up with your own OB doctor this week. If your bleeding worsens or you develop any new symptoms please consider return to the emergency department.
[2023-01-02 20:54] LABS: BASOPHILS # (AUTO) 0.1 10^3/uL (0.0-0.1); BASOPHILS % (AUTO) 1.2 %; EOSINOPHILS # (AUTO) 0.2 10^3/uL (0.0-0.7); EOSINOPHILS % (AUTO) 2.3 %; HCT - HEMATOCRIT 45.7 % (37.0-47.0); HGB - HEMOGLOBIN 14.6 g/dL (12.0-16.0); LYMPHOCYTES # (AUTO) 2.5 10^3/uL (1.5-3.5); LYMPHOCYTES % (AUTO) 31.1 %; MEAN CORPUSCULAR HEMOGLOBIN 26.7 pg (27.0-31.0); MEAN CORPUSCULAR HGB CONC 31.9 g/dL (32.0-36.0); MEAN CORPUSCULAR VOLUME 83.5 fL (81.0-99.0); MEAN PLATELET VOLUME 9.4 fL (7.9-10.8); MONOCYTES # (AUTO) 0.6 10^3/uL (0.0-1.0); MONOCYTES % (AUTO) 7.1 %; NEUTROPHILS # (AUTO) 4.7 10^3/uL (1.5-6.6); NEUTROPHILS % (AUTO) 57.9 %; PLT - PLATELET COUNT 319 10^3/uL (130-450); RED BLOOD COUNT 5.47 10^6/uL (4.20-5.40); WHITE BLOOD COUNT 8.2 x10^3/uL (4.8-10.8)
[2023-01-02 21:07] LABS: ALBUMIN/GLOBULIN RATIO 1.1 (1.0-2.2); BILIRUBIN,TOTAL 0.6 mg/dL (0.2-1.0); CALCIUM 9.2 mg/dL (8.5-10.3); CREATININE 0.5 mg/dL (0.4-1.0); POTASSIUM 3.4 mmol/L (3.5-5.0); TOTAL PROTEIN 7.7 g/dL (6.7-8.2)
[2023-01-02 21:11] LABS: PLATELET ESTIMATE, MANUAL NORMAL (130-450,000) (NORMAL); PLATELET MORPHOLOGY NORMAL APPEARANCE (NORMAL); RBC MORPHOLOGY (MULTIPLE) 3+ ANISOCYTOSIS (NORMAL); SLIDE REVIEW? Indicated
--- OUTSIDE RECORDS SUMMARY | 2023-01-02 21:56 | EXTERNAL MEDICAL SUMMARY RPT | Continuity of Care Document ---
:2000 Author Organization [facility] Address [address] [place] [address] Phone Care Team Providers Name Role Phone Kris Hensley Unavailable Unavailable Allergies and Intolerances date description facility type (no date) Mild [facility] (unknown) (no date) No Known Drug Allergies [facility]unkn own[facility] (no date[facility] Encounters No information. Functional Status No information. Immunizations No information. Medications date description facility 2022-10-19 00:00 Nifedipine [facility] 2022-10-19 00:00 Nifedipine [facility] 2022-12-19 00:00 Acetaminophen [facility] Problems date description facility 2022-10-04 00:00 28 weeks gestation of [facility] 2022-10-04 10:00 Encounter for supervision of normal pre gnancy, [facility] unspecified, 2022-10-04 10:00 28 weeks gestation of [facility] 2022-10-05 08:10 Encounter for supervision of normal pre gnancy, [facility] unspecified, 2022-10-05 08:10 28 weeks gestation of [facility] 2022-10-10 00:00 uterine contractions [facility] 2022-10-19 00:00 Diarrhea [facility] 2022-10-21 13:49 premature rupture of membranes, [facility] unspecified as to le 2022-10-27 07:12 Decreased movements[facility] applicable o 2022-10-28 00:00 Decreased movement affecting tamanna [facility] of in third trimester 2022-10-28 15:53 Decreased movements, [facility] applicable o 2022-11-11 17:31 Dysuria [facility] 2022-11-15 00:00 headache in third trimester [facility] 2022-11-15 18:51 Other specified related condi tions, [facility] third trimeste 2022-11-15 18:51 Headache, unspecified [facility] 2022-11-16 07:08 Other specified related condi tions, [facility] third trimeste 2022-11-16 07:08 Headache, unspecified [facility] 2022-11-17 11:53 Other specified [facility] con[facility]:00 related hip pain in third tri [facility] antepartum 2022-11-27 00:00 False labor before 37 completed weeks [facility] gestation 2022-11-27 20:52 False labor before 37 completed weeks [facility] gestation, unspecif 2022-11-29 07:45 False labor before 37 completed weeks [facility] gestation, unspecif 2022-12-06 08:53 False labor before 37 completed weeks [facility] gestation, unspecif 2022-12-06 08:53 labor without delivery, third t [facility] Procedures date description facility 2022-10-10 00:00 Gram Stain [facility] 2022-10-18 00:00 Gram Stain [facility] 2022-10-19 00:00 Gram Stain [facility] 2022-10-23 00:00 Gram Stain [facility] 2022-10-10 00:00 Wet Prep [facility] 2022-10-18 00:00 Wet Prep [facility] 2022-10-19 00:00 Wet Prep [facility] 2022-10-23 00:00 [facility] Prep [facility] 2022-10-10 00:00 Transvaginal obstetrical ultrasound [facility] Results/Labs test date author facility value unit interpret ation Result panel 1 (unknown) (no date) (unknown) [place] [facility]) Result panel 2 (unknown) (no date) (unknown) [place] [facility]) Result panel 3 (unknown) (no date) (unknown) [place] [facility]) Result panel 4 (unknown) (no date) (unknown) [place] [facility]) [...] [facility] unknown) Result panel 1792 ([facility]) (no date[facility] [place] [facility]) Result panel 1793 (unknown) (no date) ([facility] Result panel 1794 (unknown) (no date) (unknown[facility] Result panel 1795 (unknown) (no date) (unknown[facility]) Result panel 1796 (unknown) (no date) (unknown[facility]) Result panel 1797 (unknown) (no date) (unknown[facility]) Result panel 1798 (unknown) (no date) (unknown[facility]) Result panel 1799 (unknown) (no date) (unknown[facility]) Result panel 1800 (unknown) (no date) (unknown[facility]) Result panel 1801 (unknown) (no date) (unknown[facility]) Result panel 1802 (unknown) (no date) (unknown[facility]) Result panel 1803 (unknown) (no date) (unknown[facility]) Result panel 1804 (unknown) (no date) (unknown[facility]) Result panel 1805 (unknown) (no date) (unknown[facility]) Result panel 1806 (unknown) (no date) (unknown[facility]) Result panel 1807 (unknown) (no date) (unknown[facility]) Result panel 1808 (unknown) (no date) (unknown[facility]) Result panel 1809 (unknown) (no date) (unknown[facility]) Result panel 1810 (unknown) (no date) (unknown[facility]) Result panel 1811 (unknown) (no date) (unknown[facility]) Result panel 1812 (unknown) (no date) (unknown[facility]) Result panel 1813 (unknown) (no date) (unknown[facility]) Result panel 1814 (unknown) (no date) (unknown[facility]) Result panel 1815 (unknown) (no date) (unknown[facility] Result panel 1816 (unknown) (no date) (unknown[facility]) Result panel 1817 (unknown) (no date) (unknown[facility]) Result panel 1818 (unknown) (no date) (unknown[facility]) Result panel 1819 (unknown) (no date) (unknown[facility]) Result panel 1820 (unknown) (no date) (unknown[facility]) Result panel 1821 (unknown) (no date) (unknown[facility]) Result panel 1822 (unknown) (no date) (unknown[facility]) Result panel 1823 (unknown) (no date) (unknown[facility]) Result panel 1824 (unknown) (no date) (unknown[facility]) Result panel 1825 (unknown) (no date) (unknown[facility]) Result panel 1826 (unknown) (no date) (unknown[facility]) Result panel 1827 (unknown) (no date) (unknown[facility]) Result panel 1828 (unknown) (no date) (unknown[facility]) Result panel 1829 (unknown) (no date) (unknown[facility]) Result panel 1830 (unknown) (no date) (unknown[facility]) Result panel 1831 (unknown) (no date) (unknown[facility]) Result panel 1832 (unknown) (no date) (unknown[facility]) Result panel 1833 (unknown) (no date) (unknown[facility]) Result panel 1834 (unknown) (no date) (unknown[facility]) Result panel 1835 (unknown) (no date) (unknown[facility]) Result panel 1836 (unknown) (no date) (unknown[facility]) Result panel 1837 (unknown) (no date) (unknown[facility]) Result panel 1838 (unknown) (no date) (unknown[facility]) Result panel 1839 (unknown) (no date) (unknown[facility]) Result panel 1840 (unknown) (no date) (unknown[facility]) Result panel 1841 (unknown) (no date) (unknown[facility]) Result panel 1842 (unknown) (no date) (unknown[facility]) Result panel 1843 (unknown) (no date) (unknown[facility]) Result panel 1844 (unknown) (no date) (unknown[facility]) Result panel 1845 (unknown) (no date) (unknown[facility] Result panel 1846 (unknown) (no date) (unknown[facility]) Result panel 1847 (unknown) (no date) (unknown[facility] Result panel 1848 (unknown) (no date) (unknown[facility]) Result panel 1849 (unknown) (no date) (unknown[facility] Result panel 1850 (unknown) (no date) (unknown[facility]) Result panel 1851 (unknown) (no date) (unknown[facility]) Result panel 1852 (unknown) (no date) (unknown[facility]) Result panel 1853 (unknown) (no date) (unknown[facility]) Result panel 1854 (unknown) (no date) (unknown[facility]) Result panel 1855 (unknown) (no date) (unknown[facility]) Result panel 1856 (unknown) (no date) (unknown[facility]) Result panel 1857 (unknown) (no date) (unknown[facility]) Result panel 1858 (unknown) (no date) (unknown[facility]) Result panel 1859 (unknown) (no date) (unknown[facility]) Result panel 1860 (unknown) (no date) (unknown[facility]) Result panel 1861 (unknown) (no date) (unknown[facility]) Result panel 1862 (unknown) (no date) (unknown[facility] Result panel 1863 (unknown) (no date) (unknown[facility]) Result panel 1864 (unknown) (no date) (unknown[facility]) Result panel 1865 (unknown) (no date) (unknown[facility] Result panel 1866 (unknown) (no date) (unknown[facility]) Result panel 1867 (unknown) (no date) (unknown[facility]) Result panel 1868 (unknown) (no date) (unknown[facility]) Result panel 1869 (unknown) (no date) (unknown[facility]) Result panel 1870 (unknown) (no date) (unknown[facility]) Result panel 1871 (unknown) (no date) (unknown[facility]) Result panel 1872 (unknown) (no date) (unknown[facility]) Result panel 1873 (unknown) (no date) (unknown[facility]) Result panel 1874 (unknown) (no date) (unknown[facility]) Result panel 1875 (unknown) (no date) (unknown[facility]) Result panel 1876 (unknown) (no date) (unknown[facility]) Result panel 1877 (unknown) (no date) (unknown[facility]) Result panel 1878 (unknown) (no date) (unknown[facility]) Result panel 1879 (unknown) (no date) (unknown[facility]) Result panel 1880 (unknown) (no date) (unknown[facility]) Result panel 1881 (unknown) (no date) (unknown[facility]) Result panel 1882 (unknown) (no date) (unknown[facility]) Result panel 1883 (unknown) (no date) (unknown[facility]) Result panel 1884 (unknown) (no date) (unknown[facility]) Result panel 1885 (unknown) (no date) (unknown[facility]) Result panel 1886 (unknown) (no date) (unknown[facility]) Result panel 1887 (unknown) (no date) (unknown[facility]) Result panel 1888 (unknown) (no date) (unknown[facility]) Result panel 1889 (unknown) (no date) (unknown[facility]) Result panel 1890 (unknown) (no date) (unknown[facility]) Result panel 1891 (unknown) (no date) (unknown[facility]) Result panel 1892 (unknown) (no date) (unknown[facility]) Result panel 1893 (unknown) (no date) (unknown[facility]) Result panel 1894 (unknown) (no date) (unknown[facility]) Result panel 1895 (unknown) (no date) (unknown[facility]) Result panel 1896 (unknown) (no date) (unknown[facility]) Result panel 1897 (unknown) (no date) (unknown[facility]) Result panel 1898 (unknown) (no date) (unknown[facility]) Result panel 1899 (unknown) (no date) (unknown[facility]) Result panel 1900 (unknown) (no date) (unknown[facility]) Result panel 1901 (unknown) (no date) (unknown[facility]) Result panel 1902 (unknown) (no date) (unknown[facility]) Result panel 1903 (unknown) (no date) (unknown[facility]) Result panel 1904 (unknown) (no date) (unknown[facility]) Result panel 1905 (unknown) (no date) (unknown[facility]) Result panel 1906 (unknown) (no date) (unknown[facility]) Result panel 1907 (unknown) (no date) (unknown[facility]) Result panel 1908 (unknown) (no date) (unknown[facility]) Result panel 1909 (unknown) (no date) (unknown[facility]) Result panel 1910 (unknown) (no date) (unknown[facility]) Result panel 191 (unknown) (no date) (unknown[facility]) Result panel 191 (unknown) (no date) (unknown[facility]) Result panel 191 (unknown) (no date) (unknown[facility]) Result panel 1914 (unknown) (no date) (unknown[facility]) Result panel 1915 (unknown) (no date) (unknown[facility]) Result panel 1916 (unknown) (no date) (unknown[facility]) Result panel 1917 (unknown) (no date) (unknown[facility]) Result panel 1918 (unknown) (no date) (unknown[facility] [...] [facility]) Result panel 1923 (unknown) (no date) (unknown[facility]) Result panel 1924 (unknown) (no date) (unknown[facility]) Result panel 192 (unknown) (no date) (unknown[facility]) Result panel 1926 (unknown) (no date) (unknown) [facility]) Result panel 1935 (unknown) (no date) (unknown[facility]) Result panel 1936 (unknown) (no date) (unknown[facility]) Result panel 1937 (unknown) (no date) (unknown[facility]) Result panel 1938 (unknown) (no date) (unknown[facility]) Result panel 193 (unknown) (no date) (unknown[facility]) Result panel 1940 (unknown) (no date) (unknown[facility]) Result panel 1945 (unknown) (no date) (unknown[facility]) Result panel 194 (unknown) (no date) (unknown[facility]) Result panel 194 (unknown) (no date) (unknown[facility]) Result panel 194 (unknown) (no date) (unknown[facility]) Result panel 1949 (unknown) (no date) (unknown[facility]) Result panel 1950 (unknown) (no date) (unknown[facility]) Result panel 1951 (unknown) (no date) (unknown) [facility]) Result panel 1957 (unknown) (no date) (unknown[facility]) Result panel 1958 (unknown) (no date) (unknown[facility]) Result panel 1960 (unknown) (no date) (unknown[facility]) Result panel 1960 (unknown) (no date) (unknown[facility]) Result panel 1961 (unknown) (no date) (unknown[facility]) Result panel 1963 (unknown) (no date) (unknown[facility]) Result panel 1964 (unknown) (no date) (unknown[facility]) Result panel 1965 (unknown) (no date) (unknown[facility]) Result panel 1966 (unknown) (no date) (unknown[facility]) Result panel 1967 (unknown) (no date) (unknown[facility]) Result panel 1968 (unknown) (no date) (unknown[facility]) Result panel 1969 (unknown) (no date) (unknown[facility]) Result panel 1970 (unknown) (no date) (unknown[facility]) Result panel 1971 (unknown) (no date) (unknown[facility]) Result panel 1972 (unknown) (no date) (unknown[facility]) Result panel 1973 (unknown) (no date) (unknown[facility]) Result panel 1974 (unknown) (no date) (unknown[facility]) Result panel 1974 (unknown) (no date) (unknown[facility]) Result panel 1975 (unknown) (no date) (unknown[facility]) Result panel 1976 (unknown) (no date) (unknown[facility]) Result panel 1977 (unknown) (no date) (unknown[facility]) Result panel 1978 (unknown) (no date) (unknown[facility]) Result panel 1979 (unknown) (no date) (unknown[facility]) Result panel 1980 (unknown) (no date) (unknown[facility]) Result panel 1981 (unknown) (no date) (unknown[facility]) Result panel 1982 (unknown) (no date) (unknown[facility]) Result panel 1983 (unknown) (no date) (unknown) [facility]) Result panel 1984 (unknown) (no date) (unknown) [facility]) Result panel 1985 (unknown) (no date) (unknown) [facility]) Result panel 1987 (unknown) (no date) (unknown[facility]) Result panel 1987 (unknown) (no date) (unknown[facility]) Result panel 1989 (unknown) (no date) (unknown[facility]) Result panel 1990 (unknown) (no date) (unknown[facility]) Result panel 1990 (unknown) (no date) (unknown[facility]) Result panel 1991 (unknown) (no date) (unknown[facility]) Result panel 1992 (unknown) (no date) (unknown[facility]) Result panel 1993 (unknown) (no date) (unknown[facility]) Result panel 1994 (unknown) (no date) (unknown[facility]) Result panel 1995 (unknown) (no date) (unknown[facility]) Result panel 1996 (unknown) (no date) (unknown[facility]) Result panel 1997 (unknown) (no date) (unknown[facility]) Result panel 1998 (unknown) (no date) (unknown[facility]) Result panel 1999 (unknown) (no date) (unknown[facility]) Result panel 2000 (unknown) (no date) (unknown[facility]) Result panel 2001 (unknown) (no date) (unknown[facility]) Result panel 2002 (unknown) (no date) (unknown[facility]) Result panel 2004 (unknown) (no date) (unknown[facility]) Result panel 2005 (unknown) (no date) (unknown[facility]) Result panel 2006 (unknown) (no date) (unknown) [facility] [facility] Result panel 2007 (unknown) (no date) (unknown) [facility]) Result panel 2008 (unknown) (no date) (unknown) [facility]) Result panel 2009 (unknown) (no date) (unknown) [facility] Result panel 2010 (unknown) (no date) (unknown) [facility]) Result panel 2011 (unknown) (no date) (unknown) [facility]) Result panel 2012 (unknown) (no date) (unknown) [facility]) Result panel 2013 (unknown) (no date) (unknown) [facility]) Result panel 2014 (unknown) (no date) (unknown) [facility]) Result panel 2015 (unknown) (no date) (unknown) [facility]) Result panel 2016 (unknown) (no date) (unknown) [facility]) Result panel 2017 (unknown) (no date) (unknown) [facility]) Result panel 2018 (unknown) (no date) (unknown) [facility]) Result panel 2019 (unknown) (no date) (unknown) [facility]) Result panel 2019 (unknown) (no date) (unknown) [facility]) Result panel 2020 (unknown) (no date) (unknown) [facility]) Result panel 2021 (unknown) (no date) (unknown) [facility]) Result panel 2022 (unknown) (no date) (unknown) [facility]) Result panel 2023 (unknown) (no date) (unknown) [facility]) Result panel 2024 (unknown) (no date) (unknown) [facility]) Result panel 2025 (unknown) (no date) (unknown) [facility]) Result panel 2026 (unknown) (no date) (unknown) [facility]) Result panel 2027 (unknown) (no date) (unknown) [facility]) Result panel 2028 (unknown) (no date) (unknown) [facility]) Result panel 2029 (unknown) (no date) (unknown) [facility]) Result panel 2030 (unknown) (no date) (unknown) [facility]) Result panel 2031 (unknown) (no date) (unknown) [facility]) Result panel 2032 (unknown) (no date) (unknown) [facility]) Result panel 2033 (unknown) (no date) (unknown) [facility]) Result panel 2034 (unknown) (no date) (unknown) [facility]) Result panel 2035 (unknown) (no date) (unknown) [facility]) Result panel 2036 (unknown) (no date) (unknown) [facility]) Result panel 2037 (unknown) (no date) (unknown) [facility]) Result panel 2038 (unknown) (no date) (unknown) [facility]) Result panel 2039 (unknown) (no date) (unknown) [facility]) Result panel 204 (unknown) (no date) (unknown) [facility]) Result panel 2042 (unknown) (no date) (unknown) [facility]) Result panel 2043 (unknown) (no date) (unknown) [facility]) Result panel 2044 (unknown) (no date) (unknown) [facility]) Result panel 2045 (unknown) (no date) (unknown) [facility]) Result panel 204 (unknown) (no date) (unknown) [facility]) Result panel 204 (unknown) (no date) (unknown) [facility]) Result panel 2047 (unknown) (no date) (unknown) [facility]) Result panel 2048 (unknown) (no date) (unknown) [facility]) Result panel 205 (unknown) (no date) (unknown) [facility]) Result panel 205 (unknown) (no date) (unknown) [facility]) Result panel 2051 (unknown) (no date) (unknown) [facility]) Result panel 2052 (unknown) (no date) (unknown) [facility]) Result panel 205 (unknown) (no date) (unknown) [facility]) Result panel 2055 (unknown) (no date) (unknown) [facility]) Result panel 2056 (unknown) (no date) (unknown) [facility]) Result panel 2057 (unknown) (no date) (unknown) [facility]) Result panel 2058 (unknown) (no date) (unknown) [facility]) Result panel 2058 (unknown) (no date) (unknown) [facility] Result panel 2059 (unknown) (no date) (unknown) [facility]) Result panel 2060 (unknown) (no date) (unknown) [facility]) Result panel 2061 (unknown) (no date) (unknown) [facility]) Result panel 2062 (unknown) (no date) (unknown) [facility]) Result panel 2063 (unknown) (no date) (unknown) [facility]) Result panel 2064 (unknown) (no date) (unknown) [facility]) Result panel 2065 (unknown) (no date) (unknown) [facility]) Result panel 2066 (unknown) (no date) (unknown) [facility]) Result panel 2067 (unknown) (no date) (unknown) [facility]) Result panel 2068 (unknown) (no date) (unknown) [facility]) Result panel 2069 (unknown) (no date) (unknown) [facility]) Result panel 2070 (unknown) (no date) (unknown) [facility]) Result panel 2071 (unknown) (no date) (unknown) [facility]) Result panel 2072 (unknown) (no date) (unknown) [facility]) Result panel 2073 (unknown) (no date) (unknown) [facility]) Result panel 2075 (unknown) (no date) (unknown) [facility]) Result panel 207 (unknown) (no date) (unknown) [facility]) Result panel 2076 (unknown) (no date) (unknown) [facility]) Result panel 2077 (unknown) (no date) (unknown) [facility]) Result panel 2078 (unknown) (no date) (unknown) [facility]) Result panel 2079 (unknown) (no date) (unknown) [facility]) Result panel 2080 (unknown) (no date) (unknown) [facility]) Result panel 2081 (unknown) (no date) (unknown) [facility]) Result panel 2082 (unknown) (no date) (unknown) [facility]) Result panel 2083 (unknown) (no date) (unknown) [facility]) Result panel 2084 (unknown) (no date) (unknown) [facility]) Result panel 2085 (unknown) (no date) (unknown) [facility]) Result panel 2086 (unknown) (no date) (unknown) [facility]) Result panel 2087 (unknown) (no date) (unknown) [facility]) Result panel 208 (unknown) (no date) (unknown) [facility]) Result panel 209 (unknown) (no date) (unknown) [facility]) Result panel 209 (unknown) (no date) (unknown) [facility]) Result panel 2092 (unknown) (no date) (unknown) [facility]) Result panel 2093 (unknown) (no date) (unknown) [facility]) Result panel 2094 (unknown) (no date) (unknown) [facility]) Result panel 2095 (unknown) (no date) (unknown) [facility] [...] ([facility]) Result panel 2100 (unknown) (no date) (unknown) [facility]) Result panel 2101 (unknown) (no date) (unknown) [facility]) Result panel 2102 (unknown) (no date) (unknown) [facility]) Result panel 2103 (unknown) (no date) (unknown) [facility]) Result panel 2104 (unknown) (no date) (unknown) [facility]) Result panel 2105 (unknown) (no date) (unknown) [facility]) Result panel 2106 (unknown) (no date) (unknown) [facility]) Result panel 2107 (unknown) (no date) (unknown) [facility]) Result panel 2108 (unknown) (no date) (unknown) [facility]) Result panel 2109 (unknown) (no date) (unknown) [facility]) Result panel 2110 (unknown) (no date) (unknown) [facility]) Result panel 2111 (unknown) (no date) (unknown) [facility]) Result panel 2112 (unknown) (no date) (unknown) [facility]) Result panel 2113 (unknown) (no date) (unknown) [facility]) Result panel 2114 (unknown) (no date) (unknown) [facility]) Result panel 2115 (unknown) (no date) (unknown) [facility]) Result panel 2116 (unknown) (no date) (unknown) [facility]) Result panel 2117 (unknown) (no date) (unknown) [facility]) Result panel 2118 (unknown) (no date) (unknown) [facility]) Result panel 2119 (unknown) (no date) (unknown) [facility]) Result panel 2120 (unknown) (no date) (unknown) [facility]) Result panel 2121 (unknown) (no date) (unknown) [facility]) Result panel 2122 (unknown) (no date) (unknown) [facility]) Result panel 2123 (unknown) (no date) (unknown) [facility]) Result panel 2124 (unknown) (no date) (unknown) [facility]) Result panel 2125 (unknown) (no date) (unknown) [facility]) Result panel 2126 (unknown) (no date) (unknown) [facility]) Result panel 2127 (unknown) (no date) (unknown) [facility]) Result panel 2128 (unknown) (no date) (unknown) [facility]) Result panel 2129 (unknown) (no date) (unknown) [facility]) Result panel 2130 (unknown) (no date) (unknown) [facility]) Result panel 2131 (unknown) (no date) (unknown) [facility]) Result panel 2132 (unknown) (no date) (unknown) [facility]) Result panel 2133 (unknown) (no date) (unknown) [facility]) Result panel 2134 (unknown) (no date) (unknown) [facility]) Result panel 2135 (unknown) (no date) (unknown) [facility]) Result panel 2136 (unknown) (no date) (unknown) [facility]) Result panel 2137 (unknown) (no date) (unknown) [facility]) Result panel 2138 (unknown) (no date) (unknown) [facility]) Result panel 2139 (unknown) (no date) (unknown) [facility]) Result panel 2140 (unknown) (no date) (unknown) [facility]) Result panel 2141 (unknown) (no date) (unknown) [facility]) Result panel 2142 (unknown) (no date) (unknown) [facility]) Result panel 2143 (unknown) (no date) (unknown) [facility]) Result panel 2144 (unknown) (no date) (unknown) [facility]) Result panel 2145 (unknown) (no date) (unknown) [facility]) Result panel 2146 (unknown) (no date) (unknown) [facility]) Result panel 2147 (unknown) (no date) (unknown) [facility]) Result panel 2148 (unknown) (no date) (unknown) [facility]) Result panel 2149 (unknown) (no date) (unknown) [facility]) Result panel 2150 (unknown) (no date) (unknown) [facility]) Result panel 2151 (unknown) (no date) (unknown) [facility]) Result panel 2152 (unknown) (no date) (unknown) [facility]) Result panel 2153 (unknown) (no date) (unknown) [facility]) Result panel 2154 (unknown) (no date) (unknown) [facility]) Result panel 2155 (unknown) (no date) (unknown) [facility]) Result panel 2156 (unknown) (no date) (unknown) [facility]) Result panel 2157 (unknown) (no date) (unknown) [facility]) Result panel 2158 (unknown) (no date) (unknown) [facility]) Result panel 2159 (unknown) (no date) (unknown) [facility]) Result panel 2160 (unknown) (no date) (unknown) [facility]) Result panel 2161 (unknown) (no date) (unknown) [facility]) Result panel 2162 (unknown) (no date) (unknown) [facility]) Result panel 2163 (unknown) (no date) (unknown) [facility]) Result panel 2164 (unknown) (no date) (unknown) [facility]) Result panel 2165 (unknown) (no date) (unknown) [facility]) Result panel 2166 (unknown) (no date) (unknown) [facility]) Result panel 2167 (unknown) (no date) (unknown) [facility]) Result panel 2168 (unknown) (no date) (unknown) [facility]) Result panel 2169 (unknown) (no date) (unknown) [facility]) Result panel 2170 (unknown) (no date) (unknown) [facility]) Result panel 2171 (unknown) (no date) (unknown) [facility]) Result panel 2172 (unknown) (no date) (unknown) [facility]) Result panel 2173 (unknown) (no date) (unknown) [facility]) Result panel 2174 (unknown) (no date) (unknown) [facility]) Result panel 2175 (unknown) (no date) (unknown) [facility]) Result panel 2176 (unknown) (no date) (unknown) [facility]) Result panel 2177 (unknown) (no date) (unknown) [facility]) Result panel 2178 (unknown) (no date) (unknown) [facility]) Result panel 2179 (unknown) (no date) (unknown) [facility]) Result panel 2180 (unknown) (no date) (unknown) [facility]) Result panel 2181 (unknown) (no date) (unknown) [facility]) Result panel 2182 (unknown) (no date) (unknown) [facility]) Result panel 2183 (unknown) (no date) (unknown) [facility]) Result panel 2184 (unknown) (no date) (unknown) [facility]) Result panel 2185 (unknown) (no date) (unknown) [facility]) Result panel 2186 (unknown) (no date) (unknown) [facility]) Result panel 2187 (unknown) (no date) (unknown) [facility]) Result panel 2188 (unknown) (no date) (unknown) [facility]) Result panel 2189 (unknown) (no date) (unknown) [facility]) Result panel 2190 (unknown) (no date) (unknown) [facility]) Result panel 2191 (unknown) (no date) (unknown) [facility]) Result panel 2192 (unknown) (no date) (unknown) [facility]) Result panel 2193 (unknown) (no date) (unknown) [facility]) Result panel 2194 (unknown) (no date) (unknown) [facility]) Result panel 2195 (unknown) (no date) (unknown) [facility]) Result panel 2196 (unknown) (no date) (unknown) [facility]) Result panel 2197 (unknown) (no date) (unknown) [facility]) Result panel 2198 (unknown) (no date) (unknown) [facility]) Result panel 2199 (unknown) (no date) (unknown) [facility]) Result panel 2200 (unknown) (no date) (unknown) [facility]) Result panel 2201 (unknown) (no date) (unknown) [facility]) Result panel 2202 (unknown) (no date) (unknown) [facility]) Result panel 2203 (unknown) (no date) (unknown) [facility]) Result panel 2204 (unknown) (no date) (unknown) [facility]) Result panel 2205 (unknown) (no date) (unknown) [facility]) Result panel 2206 (unknown) (no date) (unknown) [facility]) Result panel 2207 (unknown) (no date) (unknown) [facility]) Result panel 2208 (unknown) (no date) (unknown) [facility]) Result panel 2209 (unknown) (no date) (unknown) [facility]) Result panel 2210 (unknown) (no date) (unknown) [facility]) Result panel 2211 (unknown) (no date) (unknown) [facility]) Result panel 2212 (unknown) (no date) (unknown) [facility]) Result panel 2213 (unknown) (no date) (unknown) [facility]) Result panel 2214 (unknown) (no date) (unknown) [facility]) Result panel 2215 (unknown) (no date) (unknown) [facility]) Result panel 2216 (unknown) (no date) (unknown) [facility]) Result panel 2217 (unknown) (no date) (unknown) [facility]) Result panel 2218 (unknown) (no date) (unknown) [facility]) Result panel 2219 (unknown) (no date) (unknown) [facility]) Result panel 2220 (unknown) (no date) (unknown) [facility]) Result panel 2221 (unknown) (no date) (unknown) [facility]) Result panel 2222 (unknown) (no date) (unknown) [facility]) Result panel 2223 (unknown) (no date) (unknown) [facility]) Result panel 2224 (unknown) (no date) (unknown) [facility]) Result panel 2225 (unknown) (no date) (unknown) [facility]) Result panel 2226 (unknown) (no date) (unknown) [facility]) Result panel 2227 (unknown) (no date) (unknown) [facility]) Result panel 2228 (unknown) (no date) (unknown) [facility]) Result panel 2229 (unknown) (no date) (unknown) [facility]) Result panel 2230 (unknown) (no date) (unknown) [facility]) Result panel 2231 (unknown) (no date) (unknown) [facility]) Result panel 2232 (unknown) (no date) (unknown) [facility]) Result panel 2233 (unknown) (no date) (unknown) [facility]) Result panel 2234 (unknown) (no date) (unknown) [facility]) Result panel 2235 (unknown) (no date) (unknown) [facility]) Result panel 2236 (unknown) (no date) (unknown) [facility]) Result panel 2237 (unknown) (no date) (unknown) [facility]) Result panel 2238 (unknown) (no date) (unknown) [facility]) Result panel 2239 (unknown) (no date) (unknown) [facility]) Result panel 2240 (unknown) (no date) (unknown) [facility]) Result panel 2241 (unknown) (no date) (unknown) [facility]) Result panel 2242 (unknown) (no date) (unknown) [facility]) Result panel 2243 (unknown) (no date) (unknown) [facility]) Result panel 2244 (unknown) (no date) (unknown) [facility]) Result panel 2245 (unknown) (no date) (unknown) [facility] Result panel 2246 (unknown) (no date) (unknown) [facility]) Result panel 2247 (unknown) (no date) (unknown) [facility] Result panel 2248 (unknown) (no date) (unknown) [facility]) Result panel 2249 (unknown) (no date) (unknown) [facility]) Result panel 2250 (unknown) (no date) (unknown) [facility]) Result panel 2251 (unknown) (no date) (unknown) [facility]) Result panel 2252 (unknown) (no date) (unknown) [facility]) Result panel 2253 (unknown) (no date) (unknown) [facility]) Result panel 2254 (unknown) (no date) (unknown) [facility]) Result panel 2255 (unknown) (no date) (unknown) [facility]) Result panel 2256 (unknown) (no date) (unknown) [facility]) Result panel 2257 (unknown) (no date) (unknown) [facility]) Result panel 2258 (unknown) (no date) (unknown) [facility]) Result panel 2259 (unknown) (no date) (unknown) [facility]) Result panel 2260 (unknown) (no date) (unknown) [facility]) Result panel 2261 (unknown) (no date) (unknown) [facility]) Result panel 2262 (unknown) (no date) (unknown[facility]) Result panel 2263 (unknown) (no date) (unknown) [facility]) Result panel 2264 (unknown) (no date) (unknown) [facility]) Result panel 2265 (unknown) (no date) (unknown) [facility]) Result panel 2266 (unknown) (no date) (unknown) [facility]) Result panel 2267 (unknown) (no date) (unknown) [facility]) Result panel 2268 (unknown) (no date) (unknown) [facility]) Result panel 2269 (unknown) (no date) (unknown) [facility]) Result panel 2270 (unknown) (no date) (unknown) [facility]) Result panel 2271 (unknown) (no date) (unknown) [facility]) Result panel 2272 (unknown) (no date) (unknown) [facility]) Result panel 2273 (unknown) (no date) (unknown[facility]) Result panel 2274 (unknown) (no date) (unknown) [facility]) Result panel 2275 (unknown) (no date) (unknown) [facility]) Result panel 2276 (unknown) (no date) (unknown) [facility]) Result panel 2277 (unknown) (no date) (unknown) [facility]) Result panel 2278 (unknown) (no date) (unknown) [facility]) Result panel 2279 (unknown) (no date) (unknown) [facility]) Result panel 2280 (unknown) (no date) (unknown) [facility]) Result panel 2281 (unknown) (no date) (unknown) [facility]) Result panel 2282 (unknown) (no date) (unknown) [facility]) Result panel 2283 (unknown) (no date) (unknown) [facility]) Result panel 2284 (unknown) (no date) (unknown) [facility]) Result panel 2285 (unknown) (no date) (unknown) [facility]) Result panel 2286 (unknown) (no date) (unknown) [facility]) Result panel 2287 (unknown) (no date) (unknown) [facility]) Result panel 2288 (unknown) (no date) (unknown) [facility]) Result panel 2289 (unknown) (no date) (unknown) [facility]) Result panel 2290 (unknown) (no date) (unknown) [facility]) Result panel 2291 (unknown) (no date) (unknown) [facility]) Result panel 2292 (unknown) (no date) (unknown) [facility]) Result panel 2293 (unknown) (no date) (unknown) [facility]) Result panel 2294 (unknown) (no date) (unknown) [facility]) Result panel 2295 (unknown) (no date) (unknown) [facility]) Result panel 2296 (unknown) (no date) (unknown) [facility]) Result panel 2297 (unknown) (no date) (unknown) [facility]) Result panel 2298 (unknown) (no date) (unknown) [facility]) Result panel 2299 (unknown) (no date) (unknown) [facility]) Result panel 2300 (unknown) (no date) (unknown) [facility]) Result panel 2301 (unknown) (no date) (unknown) [facility]) Result panel 2302 (unknown) (no date) (unknown) [facility]) Result panel 2303 (unknown) (no date) (unknown) [facility]) Result panel 2304 (unknown) (no date) (unknown) [facility]) Result panel 2305 (unknown) (no date) (unknown) [facility]) Result panel 2306 (unknown) (no date) (unknown) [facility]) Result panel 2307 (unknown) (no date) (unknown) [facility]) Result panel 2308 (unknown) (no date) (unknown) [facility]) Result panel 2309 (unknown) (no date) (unknown) [facility]) Result panel 2310 (unknown) (no date) (unknown) [facility]) Result panel 2311 (unknown) (no date) (unknown) [facility]) Result panel 2312 (unknown) (no date) (unknown) [facility]) Result panel 2313 (unknown) (no date) (unknown) [facility]) Result panel 2314 (unknown) (no date) (unknown) [facility]) Result panel 2315 (unknown) (no date) (unknown) [facility]) Result panel 2316 (unknown) (no date) (unknown) [facility]) Result panel 2317 (unknown) (no date) (unknown) [facility]) Result panel 2318 (unknown) (no date) (unknown) [facility]) Result panel 2319 (unknown) (no date) (unknown) [facility]) Result panel 2320 (unknown) (no date) (unknown) [facility]) Result panel 2321 (unknown) (no date) (unknown) [facility]) Result panel 2322 (unknown) (no date) (unknown) [facility]) Result panel 2323 (unknown) (no date) (unknown) [facility]) Result panel 2324 (unknown) (no date) (unknown) [facility]) Result panel 2325 (unknown) (no date) (unknown) [facility]) Result panel 2326 (unknown) (no date) (unknown) [facility]) Result panel 2327 (unknown) (no date) (unknown) [facility]) Result panel 2328 (unknown) (no date) (unknown) [facility]) Result panel 2329 (unknown) (no date) (unknown) [facility]) Result panel 2330 (unknown) (no date) (unknown) [facility]) Result panel 2331 (unknown) (no date) (unknown) [facility]) Result panel 2332 (unknown) (no date) (unknown) [facility]) Result panel 2333 (unknown) (no date) (unknown) [facility]) Result panel 2334 (unknown) (no date) (unknown) [facility]) Result panel 2335 (unknown) (no date) (unknown) [facility]) Result panel 2336 (unknown) (no date) (unknown) [facility]) Result panel 2337 (unknown) (no date) (unknown) [facility]) Result panel 2338 (unknown) (no date) (unknown) [facility]) Result panel 2339 (unknown) (no date) (unknown) [facility]) Result panel 2340 (unknown) (no date) (unknown) [facility]) Result panel 2341 (unknown) (no date) (unknown) [facility]) Result panel 2342 (unknown) (no date) (unknown) [facility]) Result panel 2343 (unknown) (no date) (unknown) [facility]) Result panel 2344 (unknown) (no date) (unknown) [facility]) Result panel 2345 (unknown) (no date) (unknown) [facility]) Result panel 2346 (unknown) (no date) (unknown) [facility]) Result panel 2347 (unknown) (no date) (unknown) [facility]) Result panel 2348 (unknown) (no date) (unknown) [facility]) Result panel 2349 (unknown) (no date) (unknown) [facility]) Result panel 2350 (unknown) (no date) (unknown) [facility]) Result panel 2351 (unknown) (no date) (unknown) [facility]) Result panel 2352 (unknown) (no date) (unknown) [facility]) Result panel 2353 (unknown) (no date) (unknown) [facility]) Result panel 2354 (unknown) (no date) (unknown) [facility]) Result panel 2355 (unknown) (no date) (unknown) [facility]) Result panel 2356 (unknown) (no date) (unknown) [facility]) Result panel 2357 (unknown) (no date) (unknown) [facility]) Result panel 2358 (unknown) (no date) (unknown) [facility] unknown) Result panel 2359 (unknown) (no date) (unknown) [facility] unknown) Result panel 2360 (unknown) (no date) (unknown) [facility] ([facility] unknown) Result panel 2361 (unknown) (no (unknown) (unknown) (no value) (units (unk nown) date) unknown) (unknown) (no (unknown) (unknown) 10/03/22 (units (unkno wn) date) unknown) (unknown) (no (unknown) (unknown) [id number] (units (unkno wn) date) unknown) (unknown) (no [...] (unknown) (unknown) : 2000 (units (unknown) date) Acct:[id number] unknown) (unknown) (no (unknown) (unknown) Date of [...] nknown) date) unknown) (unknown) (no (unknown) (unknown) [facility] (units (unknown) date) [address] unknown) [place] [address] (unknown) (no (unknown) (unknown) Labor and (units [...] (unknown) (unknown) Patient: (units (unkno wn) date) Sites,Saima N unknown) MR#: [id number] (unknown) (no (unknown) [...] (unknown) Ur Specific (units (un known) date) Cache <=1.005 unknown) (unknown) (no (unknown) (unknown) Ur [...] (unknown) date) year weight has: unknown) other (qwyxugahpz-65-22 lb) (unknown) (no (unknown) (unknown) education level: [...] detector in home: unknown) Yes Result panel 2362 (unknown) (no (unknown) (unknown) (no value) (units (unk nown) date) unknown) (unknown) (no (unknown) (unknown) (1) 28 weeks (units (u nknown) date) gestation of unknown) : (unknown) (no (unknown) (unknown) 10/03/22 (units (unkno wn) date) unknown) (unknown) (no (unknown) (unknown) 10/04/22 0722 (units ( unknown) date) unknown) (unknown) (no (unknown) (unknown) [id number] (units (unkno wn) date) unknown) (unknown) (no [...] (unknown) (unknown) : 2000 (units (unknown) date) Acct:[id number] unknown) (unknown) (no (unknown) (unknown) Date of [...] nknown) date) unknown) (unknown) (no (unknown) (unknown) [facility] (units (unknown) date) [address] unknown) [place] [address] (unknown) (no (unknown) (unknown) Labor and (units [...] (unknown) (unknown) Patient: (units (unkno wn) date) Sites,Saima N unknown) MR#: [id number] (unknown) (no (unknown) (unknown) Plan/Disposition (units (unknown) date) unknown) (unknown) (no (unknown) (unknown) Plan: (units (unkno wn) date) unknown) (unknown) (no (unknown) (unknown) Primary OB (units (unk nown) date) Provider: Chaka unknown) Natalya Flores (unknown) (no (unknown) (unknown) Prostate cancer (units (unknown) date) unknown) (unknown) (no (unknown) (unknown) Provider: (units (unkn own) date) Cheryle Reza unknown) D.OSadia (unknown) (no (unknown) (unknown) Reason for (units [...] (unknown) Ur Specific (units (un known) date) Cache <=1.005 unknown) (unknown) (no (unknown) (unknown) Ur [...] (unknown) date) year weight has: unknown) other ([id number]-63-97 lb) (unknown) (no (unknown) (unknown) education level: [...] fibronectin and cervical length greater Result panel 2363 (unknown) (no date) (unknown) (unknown) No growth. (units (un known) unknown) Result panel 2364 (unknown) (no date) (unknown) (unknown) No growth. (units (un known) unknown) Result panel 2365 (unknown) (no (unknown) (unknown) (no value) (units (unk nown) date) unknown) (unknown) (no (unknown) (unknown) [id number] (units (unkno wn) date) unknown) (unknown) (no (unknown) (unknown) 10/10/22 (units (unkno wn) date) unknown) (unknown) (no (unknown) (unknown) 1. Single (units (unkn own) date) living unknown) intrauterine in vertex presentation. (unknown) (no (unknown) (unknown) [id number] (units (unkn own) date) Street unknown) (unknown) (no (unknown) (unknown) 2. Closed (units (unkn own) date) cervix measuring unknown) 2.9 cm. (unknown) (no (unknown) (unknown) A single living (units (unknown) date) intrauterine unknown) gestation is present. (unknown) (no (unknown) (unknown) Accession (units (unkn own) date) Number: unknown) [id number] (unknown) (no (unknown) (unknown) Age/Sex: 22 / F (units (unknown) date) Date of Service: unknown) (unknown) (no (unknown) (unknown) Amniotic fluid (units (unknown) date) index: 11.2 cm, unknown) normal range is 5-24 cm. (unknown) (no (unknown) (unknown) LISA Watson (units ( unknown) date) [id number] unknown) (unknown) (no (unknown) (unknown) Approved by: (units (u nknown) date) Genia Casey unknown) Luis on 10/10/2022 at 21:25 (unknown) (no (unknown) (unknown) COMPARISON: (units (un known) date) [facility], unknown) US, OB TRANSVAGINAL, 09/29/2022, 13:12. (unknown) (no (unknown) (unknown) Clinically (units (unk nown) date) estimated unknown) gestational age: 29 weeks two days (unknown) (no (unknown) (unknown) : 2000 (units (unknown) date) Acct:[id number] unknown) (unknown) (no (unknown) (unknown) Dictated by: [...] date) PTL unknown) (unknown) (no (unknown) (unknown) [facility] (units (unknown) date) unknown) (unknown) (no (unknown) (unknown) LMP-based (units (unkn own) date) estimated date unknown) of delivery (TIFFANIE): 12/24/22. (unknown) (no (unknown) (unknown) Last menstrual [...] (unknown) (unknown) Patient: (units (unkno wn) date) [facility],Saima N unknown) MR#: [id number] (unknown) (no (unknown) [...] date) via transvaginal unknown) imaging. Result panel 2366 (unknown) (no date) (unknown) (unknown) 0.2 e.u./dl [...] YELLOW (units (unkn own) unknown) Result panel 2367 (unknown) (no date) (unknown) (unknown) Negative (units (unkn own) unknown) Result panel 2368 (unknown) (no (unknown) (unknown) (no value) (units (unk nown) date) unknown) (unknown) (no (unknown) (unknown) [id number] (units (unkno wn) date) unknown) (unknown) (no (unknown) (unknown) Age/Sex: 22 / F (units (unknown) date) unknown) (unknown) (no (unknown) (unknown) Call Coverage (units ( unknown) date) Note unknown) (unknown) (no (unknown) (unknown) : 2000 (units (unknown) date) Acct:[id number] unknown) (unknown) (no (unknown) (unknown) Date of Patient (units (unknown) date) Contact: unknown) 10/10/22 (unknown) (no (unknown) (unknown) Date of (units (unkno wn) date) Service: unknown) 10/10/22 (unknown) (no (unknown) (unknown) FYI: Saima is (units (unknown) date) a 22 year old unknown) who just discharged home after being seen in (unknown) (no (unknown) (unknown) [facility] (units (unknown) date) [address] [place] [address] unknown) [place] [address] (unknown) (no (unknown) (unknown) Narrative of (units (u nknown) date) Care Provided: unknown) (unknown) (no (unknown) (unknown) Negative ffn, (units (u nknown) date) cervical length unknown) US 2.7 cm, 2 contractions noticed in approx 1 hour (unknown) (no (unknown) (unknown) Note (units (unkno wn) date) unknown) (unknown) (no (unknown) (unknown) Patient: (units (unkno wn) date) Saima Tejada N unknown) MR#: [id number] (unknown) (no (unknown) [...] unknown) contractions at 30 weeks. Result panel 2369 (unknown) (no (unknown) (unknown) (no value) (units (unk nown) date) unknown) (unknown) (no (unknown) (unknown) [id number] (units (unkno wn) date) unknown) (unknown) (no [...] (unknown) (unknown) : 2000 (units (unknown) date) Acct:[id number] unknown) (unknown) (no (unknown) (unknown) Date of [...] nown) date) unknown) (unknown) (no (unknown) (unknown) Saima called (units (unknown) date) concerned about unknown) [...] wn) date) unknown) (unknown) (no (unknown) (unknown) [facility] (units (unknown) date) [address] unknown) [place] [address] (unknown) (no (unknown) (unknown) Labor and (units (unkn own) date) Delivery Triage unknown) Note (unknown) (no (unknown) (unknown) Lung cancer (units (un known) date) unknown) (unknown) (no (unknown) (unknown) Medical History (units (unknown) date) (Reviewed unknown) 10/10/22 @ 21:45 by Linh Mcginnis, TAB, STEVE) (unknown) (no (unknown) (unknown) Mental health (units [...] (unknown) (unknown) Patient: (units (unkno wn) date) Sites,Saima N unknown) MR#: [id number] (unknown) (no (unknown) [...] 10/10/22 @ 21:45 by Linh Mcginnis CNM, ARNP) (unknown) (no (unknown) (unknown) Surgical History (units (unknown) date) (Reviewed unknown) 10/10/22 @ 21:45 by Linh Mcginnis CNM, ARNP) (unknown) (no (unknown) (unknown) Type(s) of (units [...] (unknown) date) year weight has: unknown) other (ywkfbsrgpl-34-61 lb) (unknown) (no (unknown) (unknown) education level: [...] detector in home: unknown) Yes Result panel 2370 (unknown) (no (unknown) (unknown) (no value) (units (unk nown) date) unknown) (unknown) (no (unknown) (unknown) (1) (units (un known) date) uterine unknown) contractions: (unknown) (no (unknown) (unknown) [id number] (units (unkno wn) date) unknown) (unknown) (no [...] (unknown) (unknown) : 2000 (units (unknown) date) Acct:[id number] unknown) (unknown) (no (unknown) (unknown) Date of [...] nown) date) unknown) (unknown) (no (unknown) (unknown) Saima called (units (unknown) date) concerned about unknown) [...] wn) date) unknown) (unknown) (no (unknown) (unknown) [facility] (units (unknown) date) [address] unknown) [place] [address] (unknown) (no (unknown) (unknown) Labor and (units [...] unknown) 10/10/22 @ 21:45 by Linh Mcginnis, ZANAM, PRINT JOURNALIST) (unknown) (no (unknown) (unknown) Medical decision (units [...] (units (unk nown) date) Provider: Linh Hernandez unknownBlanca Mcginnis (unknown) (no (unknown) (unknown) Ovarian cyst (units (u nknown) date) () unknown) (unknown) (no (unknown) (unknown) PFSH (units (unkno wn) date) unknown) (unknown) (no (unknown) (unknown) PID (acute (units (unk nown) date) pelvic unknown) inflammatory disease) (unknown) (no (unknown) (unknown) PTSD (units (unkno wn) date) (post-traumatic unknown) stress disorder) () (unknown) (no (unknown) (unknown) Patient: (units (unkno wn) date) Sites,Saima N unknown) MR#: [id number] (unknown) (no (unknown) [...] 10/10/22 @ 21:45 by Linh Mcginnis, CNM, PRINT JOURNALIST) (unknown) (no (unknown) (unknown) Status: Acute (units ( unknown) date) unknown) (unknown) (no (unknown) (unknown) Surgical History (units (unknown) date) (Reviewed unknown) 10/10/22 @ 21:45 by Linh Mcginnis, TAB, STEVE) (unknown) (no (unknown) (unknown) Type(s) of [...] (unknown) date) year weight has: unknown) other (xbadppajod-88-30 lb) (unknown) (no (unknown) (unknown) education level: [...] detector in home: unknown) Yes Result panel 2371 (unknown) (no (unknown) (unknown) (no value) (units (unk nown) date) unknown) (unknown) (no (unknown) (unknown) 10/10/22 2215 (units ( unknown) date) unknown) (unknown) (no (unknown) (unknown) [id number] (units (unkno wn) date) unknown) (unknown) (no (unknown) (unknown) Age/Sex: 22 / F (units (unknown) date) unknown) (unknown) (no (unknown) (unknown) Call Coverage (units ( unknown) date) Note unknown) (unknown) (no (unknown) (unknown) : 2000 (units (unknown) date) Acct:[id number] unknown) (unknown) (no (unknown) (unknown) Date of Patient (units (unknown) date) Contact: unknown) 10/10/22 (unknown) (no (unknown) (unknown) Date of (units (unkno wn) date) Service: unknown) 10/10/22 (unknown) (no (unknown) (unknown) FYI: Saima is (units (unknown) date) a 22 year old unknown) who just discharged home after being seen in (unknown) (no (unknown) (unknown) [facility] (units (unknown) date) [address] [place] [address] Street unknown) [place] [address] (unknown) (no (unknown) (unknown) Narrative of (units (u nknown) date) Care Provided: unknown) (unknown) (no (unknown) (unknown) Negative ffn, (units (u nknown) date) cervical length unknown) US 2.7 cm, 2 contractions noticed in approx 1 hour (unknown) (no (unknown) (unknown) Note (units (unkno wn) date) unknown) (unknown) (no (unknown) (unknown) Patient: (units (unkno wn) date) Saima Tejada N unknown) MR#: [id number] (unknown) (no (unknown) [...] unknown) contractions at 30 weeks. Result panel 2372 (unknown) (no (unknown) (unknown) (no value) (units (unk nown) date) unknown) (unknown) (no (unknown) (unknown) (1) (units (un known) date) uterine unknown) contractions: (unknown) (no (unknown) (unknown) 10/10/22 2217 (units ( unknown) date) unknown) (unknown) (no (unknown) (unknown) [id number] (units (unkno wn) date) unknown) (unknown) (no [...] (unknown) (unknown) : 2000 (units (unknown) date) Acct:[id number] unknown) (unknown) (no (unknown) (unknown) Date of [...] nown) date) unknown) (unknown) (no (unknown) (unknown) Saima called (units (unknown) date) concerned about unknown) [...] wn) date) unknown) (unknown) (no (unknown) (unknown) [facility] [facility] ([facility] ([facility] date[facility] [address] [place] [address] unknown) [place] [address] (unknown) (no (unknown) (unknown) Lab Data (units [...] nifedipine (units (unknown) date) for reassurance; unknown) Saima declines (unknown) (no (unknown) (unknown) On-call OB (units (unk nown) date) Provider: Linh Hernnadez unknown) Ras (unknown) (no (unknown) (unknown) Ovarian cyst (units (u nknown) date) () unknown) (unknown) (no (unknown) (unknown) PFSH (units (unkno wn) date) unknown) (unknown) (no (unknown) (unknown) PID (acute (units (unk nown) date) pelvic unknown) inflammatory disease) (unknown) (no (unknown) (unknown) PTSD (units (unkno wn) date) (post-traumatic unknown) stress disorder) () (unknown) (no (unknown) (unknown) Patient: (units (unkno wn) date) Sites,Saima N unknown) MR#: [id number] (unknown) (no (unknown) [...] 10/10/22 @ 21:45 by Linh Mcginnis CNM, ARNP) (unknown) (no (unknown) (unknown) Status: Acute (units [...] (unknown) date) year weight has: unknown) other (nthdvajzab-59-28 lb) (unknown) (no (unknown) (unknown) education level: [...] detector in home: unknown) Yes Result panel 2373 (unknown) (no (unknown) (unknown) (no value) (units [...] date) spontaneous unknown) (unknown) (no (unknown) (unknown) [id number] (units (unkno wn) date) unknown) (unknown) (no [...] own) date) unknown) (unknown) (no (unknown) (unknown) [place], [place] (units ( unknown) date) [id number] unknown) (unknown) (no (unknown) (unknown) Anemia (-2020) [...] (units (unknown) date) options she unknown) desires Jing, Rx sent. History of severe (unknown) [...] Classes: unknown) discussed (unknown) (no (unknown) (unknown) [place] ED. (units (unknown) date) 20 week US normal unknown) (unknown) (no (unknown) (unknown) Current Estimate (units (unknown) date) 12/24/22 LMP unknown) (Certain) 30w 4d (unknown) (no (unknown) (unknown) Current (units (unkno wn) date) History unknown) (unknown) (no (unknown) (unknown) : 2000 (units (unknown) date) Acct:[id number] unknown) (unknown) (no (unknown) (unknown) Date of [...] date) . unknown) (unknown) (no (unknown) (unknown) Saima is here (units (unknown) date) for a FRED visit @ unknown) 15wk5d. She is accompanied by her (unknown) (no (unknown) (unknown) Saima presents (units (unknown) date) for an are OB unknown) visit at 20 weeks 5 days. Constantine, (unknown) (no (unknown) (unknown) Saima returns (units (unknown) date) today for her [...] 10/10/22 @ 21:45 by Linh Mcginnis, TAB, [facility]) (unknown) (no (unknown) (unknown) Father Diabetes (units [...] (Reviewed unknown) 10/10/22 @ 21:45 by Linh S McKittrick, CNM, PRINT JOURNALIST) (unknown) (no (unknown) (unknown) Mental health (units [...] (unknown) (unknown) Patient: (units (unkno wn) date) Blane,Saima N unknown) MR#: [id number] (unknown) (no (unknown) (unknown) Mandarin Tutor: (units ( unknown) date) CHAR Garg unknown) [...] Care (units (u nknown) date) Provider: DOD Bearden unknown) [place] (unknown) (no (unknown) (unknown) Primary Ob (units [...] 10/10/22 @ 21:45 by Linh Mcginnis, TAB, PRINT JOURNALIST) (unknown) (no (unknown) (unknown) Surrogate (units (unkn [...] (unknown) (no (unknown) (unknown) done at [facility] (units (unknown) date) health showed unknown) normal anatomy, placenta and normal cervical (unknown) (no (unknown) (unknown) duration: 15-30 (units (unknown) date) minutes/day unknown) (unknown) (no (unknown) (unknown) during the past (units (unknown) date) year weight has: unknown) other (wlefwtsqgp-36-21 lb) (unknown) (no (unknown) (unknown) education level: [...] known) date) today who came unknown) from [place] to stay with her through (unknown) (no [...] trying unknown) to establish with care in [place] (unknown) (no (unknown) (unknown) irritability was (units [...] stopped unknown) now. Seen in ED in [place] yesterday, (unknown) (no (unknown) (unknown) lives (units [...] unknown) effort is made to edit content, dental specialist errors (unknown) (no (unknown) (unknown) special mirella [...] with unknown) persistent bad cramping when in [place] and I (unknown) (no (unknown) (unknown) weeks prior to (units (unknown) date) positive unknown) test, having a feeling she may be . (unknown) (no (unknown) (unknown) weeks, in (units (unkn own) date) [place] with unknown) in loss for about 6 [...] detector in home: unknown) Yes Result panel 2374 (unknown) (no (unknown) (unknown) (no value) (units [...] date) spontaneous unknown) (unknown) (no (unknown) (unknown) [id number] (units (unkno wn) date) unknown) (unknown) (no [...] own) date) unknown) (unknown) (no (unknown) (unknown) [place], [place] (units ( unknown) date) [address] unknown) (unknown) (no (unknown) (unknown) Anemia (-2020) (units (unknown) date) unknown) (unknown) (no (unknown) (unknown) Anesthesia (units (unk nown) date) unknown) (unknown) (no (unknown) (unknown) Aneuploidy (units (unk nown) date) Screening unknown) Offered: Accepted (undecided, will probably get quad (unknown) (no (unknown) (unknown) Anticipate , (units (unknown) date) [facility] unknown) (unknown) (no (unknown) (unknown) Anticipated (units [...] Classes: unknown) discussed (unknown) (no (unknown) (unknown) [place] ED. (units (unknown) date) 20 week US normal unknown) (unknown) (no (unknown) (unknown) Current Estimate (units (unknown) date) 12/24/22 LMP unknown) (Certain) 30w 4d (unknown) (no (unknown) (unknown) Current (units (unkno wn) date) History unknown) (unknown) (no (unknown) (unknown) : 2000 (units (unknown) date) Acct:[id number] unknown) (unknown) (no (unknown) (unknown) Date of [...] date) . unknown) (unknown) (no (unknown) (unknown) Saima and (units (un known) date) Constantine returns unknown) today for her FRED visit now 30+ 4 weeks (unknown) (no (unknown) (unknown) Saima is here (units (unknown) date) for a FRED visit @ unknown) 15wk5d. She is accompanied by her (unknown) (no (unknown) (unknown) Saima presents (units (unknown) date) for an are OB unknown) visit at 20 weeks 5 days. Constantine, (unknown) (no (unknown) (unknown) Saima returns (units (unknown) date) today for her [...] (unknown) (unknown) Patient: (units (unkno wn) date) [facility],Saima N unknown) MR#: [id number] (unknown) (no (unknown) (unknown) Mandarin Tutor: (units ( unknown) date) CHAR Garg unknown) [...] (unknown) (no (unknown) (unknown) done at [facility] (units (unknown) date) health showed unknown) normal anatomy, placenta and normal cervical (unknown) (no (unknown) (unknown) duration: 15-30 (units (unknown) date) minutes/day unknown) (unknown) (no (unknown) (unknown) during the past (units (unknown) date) year weight has: unknown) other (cuxukfodrf-09-00 lb) (unknown) (no (unknown) (unknown) education level: [...] known) date) today who came unknown) from [place] to stay with her through (unknown) (no [...] trying unknown) to establish with care in [place] (unknown) (no (unknown) (unknown) irritability was (units [...] stopped unknown) now. Seen in ED in [place] yesterday, (unknown) (no (unknown) (unknown) lives (units [...] unknown) effort is made to edit content, dental specialist errors (unknown) (no (unknown) (unknown) special mirella [...] with unknown) persistent bad cramping when in [place] and I (unknown) (no (unknown) (unknown) weeks [...] detector in home: unknown) Yes Result panel 2375 (unknown) (no date) (unknown) (unknown) < 5 mg/dl (unkn own) (unknown) (no date) (unknown) (unknown) 0.03 gram/24h (unkn own) (unknown) (no date) (unknown) (unknown) 139.7 mg/dl (unkn own) Result panel 2376 (unknown) (no date) (unknown) (unknown) 0.4 % [...] (unknown) 9.4 g/dl (unkn own) Result panel 2377 (unknown) (no date) (unknown) (unknown) > 60 [...] (unknown) 7 mg/dl (unkn own) Result panel 2378 (unknown) (no (unknown) (unknown) (no value) (units [...] date) spontaneous unknown) (unknown) (no (unknown) (unknown) [id number] (units (unkno wn) date) unknown) (unknown) (no [...] own) date) unknown) (unknown) (no (unknown) (unknown) [place], [place] (units ( unknown) date) [address] unknown) (unknown) (no (unknown) (unknown) Anemia (-2020) (units (unknown) date) unknown) (unknown) (no (unknown) (unknown) Anesthesia (units (unk nown) date) unknown) (unknown) (no (unknown) (unknown) Aneuploidy (units (unk nown) date) Screening unknown) Offered: Accepted (undecided, will probably get quad (unknown) (no (unknown) (unknown) Anticipate , (units (unknown) date) [facility] unknown) (unknown) (no (unknown) (unknown) Anticipated (units [...] Classes: unknown) discussed (unknown) (no (unknown) (unknown) [place] [facility]. (units (unknown) date) 20 week US normal unknown) (unknown) (no (unknown) (unknown) Current Estimate (units (unknown) date) 12/24/22 LMP unknown) (Certain) 31w 2d (unknown) (no (unknown) (unknown) Current (units (unkno wn) date) History unknown) (unknown) (no (unknown) (unknown) : 2000 (units (unknown) date) Acct:[id number] unknown) (unknown) (no (unknown) (unknown) Date of [...] date) . unknown) (unknown) (no (unknown) (unknown) Saima and (units (un known) date) Constantine returns unknown) today for her FERD visit now 30+ 4 weeks (unknown) (no (unknown) (unknown) Saima is here (units (unknown) date) for a FRED visit @ unknown) 15wk5d. She is accompanied by her (unknown) (no (unknown) (unknown) Saima presents (units (unknown) date) for an are OB unknown) visit at 20 weeks 5 days. Constantine, (unknown) (no (unknown) (unknown) Saima returns (units (unknown) date) today for her [...] 10/10/22 @ 21:45 by Linh Mcginnis, TAB, PRINT JOURNALIST) (unknown) (no (unknown) (unknown) Father Diabetes (units [...] Mcginnis, TAB, STEVE) (unknown) (no (unknown) (unknown) Medications: (units [...] (unknown) (unknown) Patient: (units (unkno wn) date) Sites,[facility] N unknown) MR#: [id number] (unknown) (no (unknown) (unknown) Mandarin Tutor: (units ( unknown) date) [facility] unknown) (unknown) (no (unknown) (unknown) Personal history [...] (u nknown) date) Provider: CHAR Puentes unknown) [place] (unknown) (no (unknown) (unknown) Primary Ob (units [...] 10/10/22 @ 21:45 by Linh Mcginnis, TAB, PRINT JOURNALIST) (unknown) (no (unknown) (unknown) Surrogate (units (unkn [...] (unknown) (no (unknown) (unknown) done at [facility] (units (unknown) date) health showed unknown) normal anatomy, placenta and normal cervical (unknown) (no (unknown) (unknown) duration: 15-30 (units (unknown) date) minutes/day unknown) (unknown) (no (unknown) (unknown) during the past (units (unknown) date) year weight has: unknown) other (kzynlhpnqz-30-99 lb) (unknown) (no (unknown) (unknown) education level: [...] known) date) today who came unknown) from [place] to stay with her through (unknown) (no [...] trying unknown) to establish with care in [place] (unknown) (no (unknown) (unknown) irritability was (units [...] stopped unknown) now. Seen in ED in [place] yesterday, (unknown) (no (unknown) (unknown) lives (units [...] unknown) effort is made to edit content, dental specialist errors (unknown) (no (unknown) (unknown) special mirella [...] with unknown) persistent bad cramping when in [place] and I (unknown) (no (unknown) (unknown) weeks prior to (units (unknown) date) positive unknown) test, having a feeling she may be . (unknown) (no (unknown) (unknown) weeks, in (units (unkn own) date) [place] with unknown) in loss for about 6 [...] detector in home: unknown) Yes Result panel 2379 (unknown) (no (unknown) (unknown) (no value) (units [...] date) spontaneous unknown) (unknown) (no (unknown) (unknown) [id number] (units (unkno wn) date) unknown) (unknown) (no [...] own) date) unknown) (unknown) (no (unknown) (unknown) [place], [place] (units ( unknown) date) [address] unknown) (unknown) (no (unknown) (unknown) Anemia (-2020) (units (unknown) date) unknown) (unknown) (no (unknown) (unknown) Anesthesia (units (unk nown) date) unknown) (unknown) (no (unknown) (unknown) Aneuploidy (units (unk nown) date) Screening unknown) Offered: Accepted (undecided, will probably get quad (unknown) (no (unknown) (unknown) Anticipate , (units (unknown) date) [facility] unknown) (unknown) (no (unknown) (unknown) Anticipated (units [...] Classes: unknown) discussed (unknown) (no (unknown) (unknown) [place] ED. (units (unknown) date) 20 week US normal unknown) (unknown) (no (unknown) (unknown) Current Estimate (units (unknown) date) 12/24/22 LMP unknown) (Certain) 31w 2d (unknown) (no (unknown) (unknown) Current (units (unkno wn) date) History unknown) (unknown) (no (unknown) (unknown) : 2000 (units (unknown) date) Acct:[id number] unknown) (unknown) (no (unknown) (unknown) Date of [...] date) . unknown) (unknown) (no (unknown) (unknown) Saima and (units (un known) date) Constantine returns unknown) today for her FRED visit now 30+ 4 weeks (unknown) (no (unknown) (unknown) Saima is here (units (unknown) date) for a FRED visit @ unknown) 15wk5d. She is accompanied by her (unknown) (no (unknown) (unknown) Saima presents (units (unknown) date) for an are OB unknown) visit at 20 weeks 5 days. Constantine, (unknown) (no (unknown) (unknown) Saima returns (units (unknown) date) today for her [...] 10/10/22 @ 21:45 by Linh Mcginnis, TAB, PRINT JOURNALIST) (unknown) (no (unknown) (unknown) Medications: (units (u [...] (unknown) (unknown) Patient: (units (unkno wn) date) Saima Tejada N unknown) MR#: [id number] (unknown) (no (unknown) (unknown) Mandarin Tutor: (units ( unknown) date) CHAR [facility]well unknown) (unknown) (no (unknown) (unknown) Personal history [...] Care (units (u nknown) date) Provider: CHAR Bearden unknown) [place] (unknown) (no (unknown) (unknown) Primary Ob (units [...] (unknown) (no (unknown) (unknown) done at [facility] (units (unknown) date) health showed unknown) normal anatomy, placenta and normal cervical (unknown) (no (unknown) (unknown) duration: 15-30 (units (unknown) date) minutes/day unknown) (unknown) (no (unknown) (unknown) during the past (units (unknown) date) year weight has: unknown) other (kxyjystqfo-43-08 lb) (unknown) (no (unknown) (unknown) education level: [...] known) date) today who came unknown) from [place] to stay with her through (unknown) (no [...] trying unknown) to establish with care in [place] (unknown) (no (unknown) (unknown) irritability was (units [...] stopped unknown) now. Seen in ED in [place] yesterday, (unknown) (no (unknown) (unknown) lives (units [...] unknown) effort is made to edit content, dental specialist errors m (unknown) (no (unknown) (unknown) special [...] with unknown) persistent bad cramping when in [place] and I (unknown) (no (unknown) (unknown) weeks [...] detector in home: unknown) Yes Result panel 0 (unknown) (no (unknown) (unknown) (no value) (units (unk nown) date) unknown) (unknown) (no (unknown) (unknown) (1) Decreased (units ( unknown) date) movement unknown) affecting management of in third (unknown) (no (unknown) (unknown) (past 8 hours): (units (unknown) date) unknown) (unknown) (no (unknown) (unknown) 10/28/22 1502 (units ( unknown) date) unknown) (unknown) (no (unknown) (unknown) [id number] (units (unkno wn) date) unknown) (unknown) (no (unknown) (unknown) 22YO @ (units (un known) date) [id number] here for unknown) evaluation of decreased movement. [...] (unknown) (unknown) : 2000 (units (unknown) date) Acct:[id number] unknown) (unknown) (no (unknown) (unknown) Date of [...] nknown) date) unknown) (unknown) (no (unknown) (unknown) [facility] (units (unknown) date) [address] unknown) [place] [address] (unknown) (no (unknown) (unknown) Labor and (units (unkn own) date) Delivery Triage unknown) Note (unknown) (no (unknown) (unknown) Lung cancer (units (un known) date) unknown) (unknown) (no (unknown) (unknown) Medical History (units (unknown) date) (Reviewed unknown) 10/10/22 @ 21:45 by Linh Mcginnis, TAB, STEVE) (unknown) (no (unknown) (unknown) Mental health (units [...] (unknown) (unknown) Patient: (units (unkno wn) date) Sites,Saima N unknown) MR#: [id number] (unknown) (no (unknown) (unknown) Plan/Disposition (units (unknown) date) unknown) (unknown) (no (unknown) (unknown) Plan: (units (unkno wn) date) unknown) (unknown) (no (unknown) (unknown) Primary OB (units (unk nown) date) Provider: Chaka unknown) Natalya Flores (unknown) (no (unknown) (unknown) Prostate cancer (units (unknown) date) unknown) (unknown) (no (unknown) (unknown) Provider: (units (unkn own) date) Alondra Johns unknown) ivonne Bojorquez C.N.M. (unknown) (no (unknown) (unknown) RTC as [...] wn) date) By:<Electronicall unknown) y signed by Chelsy Johns, C.N.MSadia> (unknown) (no (unknown) (unknown) Sister Anxiety (units (unknown) date) unknown) (unknown) (no (unknown) (unknown) Sister (units (unkno wn) date) Depression unknown) (unknown) (no (unknown) (unknown) Smoking Status: (units (unknown) date) Former smoker unknown) (former vape use, quit) (unknown) (no (unknown) (unknown) Social History (units (unknown) date) (Reviewed unknown) 10/10/22 @ 21:45 by Linh Mcginnis, TAB, PRINT JOURNALIST) (unknown) (no (unknown) (unknown) Status: Acute (units ( unknown) date) unknown) (unknown) (no (unknown) (unknown) Surgical History (units (unknown) date) (Reviewed unknown) 10/10/22 @ 21:45 by Linh Mcginnis, TAB, STEVE) (unknown) (no (unknown) (unknown) Type(s) of [...] (unknown) date) year weight has: unknown) other (qybbzyeabx-95-67 lb) (unknown) (no (unknown) (unknown) education level: [...] detector in home: unknown) Yes Result panel 2381 (unknown) (no (unknown) (unknown) (no value) (units [...] own) date) unknown) (unknown) (no (unknown) (unknown) [id number] (units (unkno wn) date) unknown) (unknown) (no [...] own) date) unknown) (unknown) (no (unknown) (unknown) [place], [place] (units ( unknown) date) [address] unknown) (unknown) (no (unknown) (unknown) Anemia (-2020) (units (unknown) date) unknown) (unknown) (no (unknown) (unknown) Anesthesia (units (unk nown) date) unknown) (unknown) (no (unknown) (unknown) Aneuploidy (units (unk nown) date) Screening unknown) Offered: Accepted (undecided, will probably get quad (unknown) (no (unknown) (unknown) Anticipate , (units (unknown) date) [facility] unknown) (unknown) (no (unknown) (unknown) Anticipated (units [...] date) 11/03/22] unknown) (unknown) (no (unknown) (unknown) [place] ED. (units (unknown) date) 20 week US normal unknown) (unknown) (no (unknown) (unknown) Current Estimate (units (unknown) date) 12/24/22 LMP unknown) (Certain) 32w 5d (unknown) (no (unknown) (unknown) Current (units (unkno wn) date) History unknown) (unknown) (no (unknown) (unknown) : 2000 (units (unknown) date) Acct:[id number] unknown) (unknown) (no (unknown) (unknown) Date of [...] date) . unknown) (unknown) (no (unknown) (unknown) Saima and (units (un known) date) Constantine returns unknown) today for her FRED visit now 30+ 4 weeks (unknown) (no (unknown) (unknown) Saima is here (units (unknown) date) for a FRED visit @ unknown) 15wk5d. She is accompanied by her (unknown) (no (unknown) (unknown) Saima presents (units (unknown) date) for an are OB unknown) visit at 20 weeks 5 days. Constantine, (unknown) (no (unknown) (unknown) Saima returns (units (unknown) date) today for her [...] 10/10/22 @ 21:45 by Linh Mcginnis, TAB, PRINT JOURNALIST) (unknown) (no (unknown) (unknown) Father Diabetes (units [...] (unkno wn) date) (post-traumatic unknown) stress disorder) (-2020) (unknown) (no (unknown) (unknown) Para 0 (units [...] (unknown) (unknown) Patient: (units (unkno wn) date) Sites,Saima N unknown) MR#: [id number] (unknown) (no (unknown) (unknown) Mandarin Tutor: (units ( unknown) date) [facility] unknown) (unknown) (no (unknown) (unknown) Personal history [...] (u nknown) date) Provider: CHAR Puentes unknown) [place] (unknown) (no (unknown) (unknown) Primary Ob (units [...] date) (Reviewed unknown) 10/10/22 @ 21:45 by Lihn Mcginnis, TAB, PRINT JOURNALIST) (unknown) (no (unknown) (unknown) Surrogate (units (unkn [...] Visit Reasons: (units (unknown) date) OB * mark unknown) (unknown) (no (unknown) (unknown) Vitals (units [...] (unknown) (no (unknown) (unknown) done at [facility] (units (unknown) date) health showed unknown) normal anatomy, placenta and normal cervical (unknown) (no (unknown) (unknown) duration: 15-30 (units (unknown) date) minutes/day unknown) (unknown) (no (unknown) (unknown) during the past (units (unknown) date) year weight has: unknown) other (vfksyasxbc-66-31 lb) (unknown) (no (unknown) (unknown) education level: [...] known) date) today who came unknown) from [place] to stay with her through (unknown) (no [...] trying unknown) to establish with care in [place] (unknown) (no (unknown) (unknown) irritability was (units [...] stopped unknown) now. Seen in ED in [place] yesterday, (unknown) (no (unknown) (unknown) lives (units [...] (no (unknown) (unknown) prenat.vits,jack, (units (unknown) date) fup-pher-aocez 1 unknown) tab PO DAILY 04/27/22 [History [...] unknown) effort is made to edit content, dental specialist errors (unknown) (no (unknown) (unknown) special mirella [...] with unknown) persistent bad cramping when in [place] and I (unknown) (no (unknown) (unknown) weeks [...] detector in home: unknown) Yes Result panel 2382 (unknown) (no (unknown) (unknown) (no value) (units [...] own) date) unknown) (unknown) (no (unknown) (unknown) [id number] (units (unkno wn) date) unknown) (unknown) (no [...] own) date) unknown) (unknown) (no (unknown) (unknown) [place], [place] (units ( unknown) date) [address] unknown) (unknown) (no (unknown) (unknown) Anemia (-2020) (units (unknown) date) unknown) (unknown) (no (unknown) (unknown) Anemia type: (units (u nknown) date) iron deficiency unknown) (unknown) (no (unknown) (unknown) Anesthesia (units (unk nown) date) unknown) (unknown) (no (unknown) (unknown) Aneuploidy (units (unk nown) date) Screening unknown) Offered: Accepted (undecided, will probably get quad (unknown) (no (unknown) (unknown) Anticipate , (units (unknown) date) [facility] unknown) (unknown) (no (unknown) (unknown) Anticipated (units [...] increase her nifedipine. (unknown) (no (unknown) (unknown) [place] ED. (units (unknown) date) 20 week US normal unknown) (unknown) (no (unknown) (unknown) Current Estimate (units (unknown) date) 12/24/22 LMP unknown) (Certain) 32w 5d (unknown) (no (unknown) (unknown) Current (units (unkno wn) date) History unknown) (unknown) (no (unknown) (unknown) : 2000 (units (unknown) date) Acct:[id number] unknown) (unknown) (no (unknown) (unknown) Date of [...] date) . unknown) (unknown) (no (unknown) (unknown) Saima and (units (un known) date) [place] returns unknown) today for her FRED visit now 30+ 4 weeks (unknown) (no (unknown) (unknown) Saima is here (units (unknown) date) for a FRED visit @ unknown) 15wk5d. She is accompanied by her (unknown) (no (unknown) (unknown) Saima presents (units (unknown) date) for an are OB unknown) visit at 20 weeks 5 days. [place], (unknown) (no (unknown) (unknown) Saima returns (units (unknown) date) today for her [...] 10/10/22 @ 21:45 by Linh Mcginnis, TAB, PRINT JOURNALIST) (unknown) (no (unknown) (unknown) Father Diabetes (units [...] 10/10/22 @ 21:45 by Linh Mcginnis, TAB, PRINT JOURNALIST) (unknown) (no (unknown) (unknown) Medications (units (un [...] (unknown) (unknown) Patient: (units (unkno wn) date) [facility] unknown) MR#: [id number] (unknown) (no (unknown) (unknown) Mandarin Tutor: (units ( unknown) date) CHAR [facility] unknown) (unknown) (no (unknown) (unknown) Personal history [...] Visit Reasons: (units (unknown) date) OB * mark unknown) (unknown) (no (unknown) (unknown) Vitals (units [...] (unknown[facility] [...] (unknown) (no (unknown) (unknown) done at [facility] (units (unknown) date) health showed unknown) normal anatomy, placenta and normal cervical (unknown) (no (unknown) (unknown) duration: 15-30 (units (unknown) date) minutes/day unknown) (unknown) (no (unknown) (unknown) during the past (units (unknown) date) year weight has: unknown) other (emglhjgcmv-06-51 lb) (unknown) (no (unknown) (unknown) education level: [...] known) date) today who came unknown) from [place] to stay with her through (unknown) (no [...] trying unknown) to establish with care in [place] (unknown) (no (unknown) (unknown) irritability was (units [...] stopped unknown) now. Seen in ED in [place] yesterday, (unknown) (no (unknown) (unknown) lives (units [...] (no (unknown) (unknown) prenat.vits,jack, (units (unknown) date) kuk-[id number] 1 unknown) tab PO DAILY 04/27/22 [History [...] unknown) effort is made to edit content, dental specialist errors (unknown) (no (unknown) (unknown) special mirella [...] with unknown) persistent bad cramping when in [place] and I (unknown) (no (unknown) (unknown) weeks [...] detector in home: unknown) Yes Result panel 2383 (unknown) (no (unknown) (unknown) (no value) (units [...] own) date) unknown) (unknown) (no (unknown) (unknown) [id number] (units (unkno wn) date) unknown) (unknown) (no [...] own) date) unknown) (unknown) (no (unknown) (unknown) [place], [place] (units ( unknown) date) [id number] unknown) (unknown) (no (unknown) (unknown) Anemia (-2020) [...] (unknown) (unknown) Anticipate , (units (unknown) date) [facility] unknown) (unknown) (no (unknown) (unknown) Anticipated (units [...] increase her nifedipine. (unknown) (no (unknown) (unknown) [place] ED. (units (unknown) date) 20 week US normal unknown) (unknown) (no (unknown) (unknown) Current Estimate (units (unknown) date) 12/24/22 LMP unknown) (Certain) 32w 5d (unknown) (no (unknown) (unknown) Current (units (unkno wn) date) History unknown) (unknown) (no (unknown) (unknown) : 2000 (units (unknown) date) Acct:[id number] unknown) (unknown) (no (unknown) (unknown) Date of [...] date) . unknown) (unknown) (no (unknown) (unknown) Saima and (units (un known) date) Constantine returns unknown) today for her FRED visit now 30+ 4 weeks (unknown) (no (unknown) (unknown) Saima is here (units (unknown) date) for a FRED visit @ unknown) 15wk5d. She is accompanied by her (unknown) (no (unknown) (unknown) Saima presents (units (unknown) date) for an are OB unknown) visit at 20 weeks 5 days. Constantine, (unknown) (no (unknown) (unknown) Saima returns (units (unknown) date) today for her [...] (unknown) (unknown) [facility]: [facility] wn) [id number] (unknown) (no (unknown) (unknown) Mandarin Tutor: (units ( unknown) date) CHAR Garg unknown) [...] nown) date) <Electronically unknown) signed by Tony Cartlon MD> (unknown) (no (unknown) (unknown) Signed (units [...] Visit Reasons: (units (unknown) date) OB * mark unknown) (unknown) (no (unknown) (unknown) Vitals (units [...] (unknown) (no (unknown) (unknown) done at [facility] (units (unknown) date) health showed unknown) normal anatomy, placenta and normal cervical (unknown) (no (unknown) (unknown) duration: 15-30 (units (unknown) date) minutes/day unknown) (unknown) (no (unknown) (unknown) during the past (units (unknown) date) year weight has: unknown) other (lqqfnshzon-28-19 lb) (unknown) (no (unknown) (unknown) education level: [...] known) date) today who came unknown) from [place] to stay with her through (unknown) (no [...] trying unknown) to establish with care in [place] (unknown) (no (unknown) (unknown) iron deficiency (units [...] stopped unknown) now. Seen in ED in [place] yesterday, (unknown) (no (unknown) (unknown) lives (units [...] (no (unknown) (unknown) prenat.vits,jack, (units (unknown) date) ofv-[id number] 1 unknown) tab PO DAILY 04/27/22 [History [...] unknown) effort is made to edit content, dental specialist errors (unknown) (no (unknown) (unknown) special mirella [...] with unknown) persistent bad cramping when in [place] and I (unknown) (no (unknown) (unknown) weeks [...] detector in home: unknown) Yes Result panel 2384 (unknown) (no date) (unknown) (unknown) 1-5/HPF (units [...] (unknown) Test not g/dl (unkn own) performed Result panel 2385 (unknown) (no date) (unknown) (unknown) (no value) (units (un known) unknown) (unknown) (no date) (unknown) (unknown) Very Early (units (un known) Growth: Culture unknown) too young for work-up reincubated Result panel 2386 (unknown) (no date) (unknown) (unknown) (no value) (units (un known) unknown) (unknown) (no date) (unknown) (unknown) Mixed gram + (units ( unknown) osiel. Deemed unknown) unsuitable for further studies. Result panel 2387 (unknown) (no (unknown) (unknown) (no value) (units (unk nown) date) unknown) (unknown) (no (unknown) (unknown) 0 /ul (unkno wn) date) (unknown) (no (unknown) (unknown) 0.4 % (unkno wn) date) (unknown) (no (unknown) (unknown) 0.6 % (unkno wn) date) (unknown) (no (unknown) (unknown) 11/15/22 17:54 (units (unknown) date) unknown) (unknown) (no (unknown) (unknown) [id number] (units (unkno wn) date) unknown) (unknown) (no (unknown) (unknown) 10.3 g/dl (unkno wn) date) (unknown) (no (unknown) (unknown) 100 /ul (unkno wn) date) (unknown) (no (unknown) (unknown) 12.4 x10 3/ul (unkno wn) date) (unknown) (no (unknown) (unknown) 15.9 % (unkno wn) date) (unknown) (no (unknown) (unknown) 22-year-old (units (un known) date) 5 para 0 unknown) at 34 weeks 3 days Complaints of possible (unknown) (no (unknown) (unknown) 21.0 % (unkno wn) date) (unknown) (no (unknown) (unknown) 23.9 pg (unkno wn) date) (unknown) (no (unknown) (unknown) 2600 /ul (unkno wn) date) (unknown) (no (unknown) (unknown) 289 x10 3/ul (unkno wn) date) (unknown) (no (unknown) (unknown) 32.0 % (unkno wn) date) (unknown) (no (unknown) (unknown) 32.2 % (unkno wn) date) (unknown) (no (unknown) (unknown) 4.32 x10 6/ul (unkno wn) date) (unknown) (no (unknown) (unknown) 6.0 % (unkno wn) date) (unknown) (no (unknown) (unknown) 700 /ul (unkno wn) date) (unknown) (no (unknown) (unknown) 72.0 % (unkno wn) date) (unknown) (no (unknown) (unknown) 74.0 fl (unkno wn) date) (unknown) (no (unknown) (unknown) 8900 /ul (unkno wn) date) (unknown) (no (unknown) (unknown) ADHD (units (unkno wn) date) unknown) (unknown) (no (unknown) (unknown) Acne (units (unkno wn) date) unknown) (unknown) (no (unknown) (unknown) Age/Sex: 22 / F (units (unknown) date) unknown) (unknown) (no (unknown) (unknown) Anemia (-1) (units (unknown) date) unknown) (unknown) (no (unknown) (unknown) Anesthesia (units (unk nown) date) unknown) (unknown) (no (unknown) (unknown) Anxiety (units (unkno wn) date) unknown) (unknown) (no (unknown) (unknown) Autism (units (unkno wn) date) unknown) (unknown) (no (unknown) (unknown) Bipolar disorder (units (unknown) date) unknown) (unknown) (no (unknown) (unknown) Blood pressure (units (unknown) date) 115/73, pulse unknown) 103, temperature 36.2? (unknown) (no (unknown) (unknown) Brother Anxiety (units (unknown) date) unknown) (unknown) (no (unknown) (unknown) Cancer (units (unkno wn) date) unknown) (unknown) (no (unknown) (unknown) Comments/Additio (units (unknown) date) nal reasons for unknown) admission: (unknown) (no (unknown) (unknown) : 2000 (units (unknown) date) Acct:[id number] unknown) (unknown) (no (unknown) (unknown) Date of Service: (units (unknown) date) 11/15/22 unknown) (unknown) (no (unknown) (unknown) Date of (units (unkno wn) date) evaluation: unknown) 11/15/22 (unknown) (no (unknown) (unknown) Depression (units (unk nown) date) unknown) (unknown) (no (unknown) (unknown) Diabetes (units (unkno wn) date) mellitus unknown) (unknown) (no (unknown) (unknown) Family History (units (unknown) date) (Reviewed unknown) 10/10/22 @ 21:45 by Linh Mcginnis, TAB, PRINT JOURNALIST) (unknown) (no (unknown) (unknown) Father Diabetes (units [...] nknown) date) unknown) (unknown) (no (unknown) (unknown) [facility] (units (unknown) date) [address] [place] [address] unknown) [place] [address] (unknown) (no (unknown) (unknown) Labor and (units (unkn own) date) Delivery Triage unknown) Note (unknown) (no (unknown) (unknown) Labs (units (unkno wn) date) unknown) (unknown) (no (unknown) (unknown) Lung cancer (units (un known) date) unknown) (unknown) (no (unknown) (unknown) Medical History (units (unknown) date) (Reviewed unknown) 10/10/22 @ 21:45 by Linh Mcginnis CNM, STEVE) (unknown) (no (unknown) (unknown) Mental health (units ( unknown) date) problem unknown) (unknown) (no (unknown) (unknown) Mother (units (unkno wn) date) Gestational unknown) diabetes (unknown) (no (unknown) (unknown) Objective (units (unkn own) date) unknown) (unknown) (no (unknown) (unknown) On-call OB (units (unk nown) date) Provider: Rebecca unknown) B Foist (unknown) (no (unknown) (unknown) Ovarian cyst (units (u nknown) date) (-2020) unknown) (unknown) (no (unknown) (unknown) PFSH (units (unkno wn) date) unknown) (unknown) (no (unknown) (unknown) PID (acute (units (unk nown) date) pelvic unknown) inflammatory disease) (unknown) (no (unknown) (unknown) PTSD (units (unkno wn) date) (post-traumatic unknown) stress disorder) (-2019) (unknown) (no (unknown) (unknown) Patient: (units (unkno wn) date) Sites,Saima N unknown) MR#: [id number] (unknown) (no (unknown) (unknown) Prostate cancer (units (unknown) date) unknown) (unknown) (no (unknown) (unknown) Provider: (units (unkn own) date) Rebecca Lilly MD unknown) (unknown) (no (unknown) (unknown) Reason for (units (unk nown) date) Evaluation: Yes unknown) other (unknown) (no (unknown) (unknown) Recurrent UTI [...] 10/10/22 @ 21:45 by Linh Mcginnis CNM, ARNP) (unknown) (no (unknown) (unknown) Surgical History (units [...] Not Available] unknown) (unknown) (no (unknown) (unknown) alcohol intake: [...] (unknown) date) year weight has: unknown) other (swmgeqsomg-12-96 lb) (unknown) (no (unknown) (unknown) education level: [...] aware of toxo) (unknown) (no (unknown) (unknown) preeclampsia (units (u nknown) date) symptoms with unknown) elevated blood pressure at home (unknown) (no (unknown) (unknown) seatbelt use: (units [...] detector in home: unknown) Yes Result panel 2388 (unknown) (no date) (unknown) (unknown) > 60 ml/min (unkn own) (unknown) (no date) (unknown) (unknown) > 60 ml/min (unkn own) (unknown) (no date) (unknown) (unknown) 0.54 mg/dl (unkn own) (unknown) (no date) (unknown) (unknown) 13.0 (units unknown) (unknown) (unknown) (no date) (unknown) (unknown) 23 iu/l (unkn own) (unknown) (no date) (unknown) (unknown) 5.6 mg/dl (unkn own) (unknown) (no date) (unknown) (unknown) 7 mg/dl (unkn own) Result panel 2389 (unknown) (no (unknown) (unknown) (no value) (units (unk nown) date) unknown) (unknown) (no (unknown) (unknown) (1) (units ( unknown) date) headache in third unknown) trimester: (unknown) (no (unknown) (unknown) 11/15/22 17:54 (units (unknown) date) unknown) (unknown) (no (unknown) (unknown) 11/15/22 1824 (units ( unknown) date) unknown) (unknown) (no (unknown) (unknown) [id number] (units (unkno wn) date) unknown) (unknown) (no (unknown) (unknown) 22-year-old (units (un known) date) 5 para 0 unknown) at 34 weeks 3 days Complaints of possible (unknown) (no (unknown) (unknown) ADHD (units (unkno [...] date) unknown) (unknown) (no (unknown) (unknown) Blood pressure (units (unknown) date) 115/73, pulse unknown) 103, temperature 36.2? (unknown) (no (unknown) (unknown) Blood pressures (units (unknown) date) are in the normal unknown) range here despite being elevated at home. (unknown) (no (unknown) (unknown) Brother Anxiety (units (unknown) date) unknown) (unknown) (no (unknown) (unknown) Cancer (units (unkno wn) date) unknown) (unknown) (no (unknown) (unknown) Category of (units (un known) date) Tracing: Reactive unknown) (unknown) (no (unknown) (unknown) Comments/Additio (units (unknown) date) nal reasons for unknown) admission: (unknown) (no (unknown) (unknown) Contraction (units (un known) date) Frequency unknown) (minutes): 0 (unknown) (no (unknown) (unknown) : 2000 (units (unknown) date) Acct:[id number] unknown) (unknown) (no (unknown) (unknown) Date of Service: (units (unknown) date) 11/15/22 unknown) (unknown) (no (unknown) (unknown) Date of (units (unkno wn) date) evaluation: unknown) 11/15/22 (unknown) (no (unknown) (unknown) Depression (units (unk nown) date) unknown) (unknown) (no (unknown) (unknown) Diabetes (units (unkno wn) date) mellitus unknown) (unknown) (no (unknown) (unknown) Diagnosis, (units (unk nown) date) Plan/Disposition unknown) (unknown) (no (unknown) (unknown) Evaluation (units (unk nown) date) unknown) (unknown) (no (unknown) (unknown) Exam Narrative: (units (unknown) date) unknown) (unknown) (no (unknown) (unknown) Exam (units (unkno wn) date) unknown) (unknown) (no (unknown) (unknown) Family History (units (unknown) date) (Reviewed unknown) 10/10/22 @ 21:45 by Linh Mcginnis, TAB, STEVE) (unknown) (no (unknown) (unknown) Father Diabetes (units (unknown) date) mellitus unknown) (unknown) (no (unknown) (unknown) Monitor (units ( unknown) date) Decelerations: unknown) Absent (unknown) (no (unknown) (unknown) Status: (units ( unknown) date) Category l unknown) (unknown) (no (unknown) (unknown) monitor (units ( unknown) date) accelerations: unknown) Present (unknown) (no (unknown) (unknown) Final Diagnosis (units (unknown) date) unknown) (unknown) (no (unknown) (unknown) Follow up at our (units (unknown) date) normal OB unknown) appointment. (unknown) (no (unknown) (unknown) Grandfather (units (un known) date) Diabetes mellitus unknown) (unknown) (no (unknown) (unknown) Grandfather (units (un known) date) Family unknown) estrangement (unknown) (no (unknown) (unknown) Grandmother (units (un known) date) Cancer unknown) (unknown) (no (unknown) (unknown) Grandmother (units (un known) date) Diabetes unknown) mellitus (unknown) (no (unknown) (unknown) H/O hand surgery (units (unknown) date) unknown) (unknown) (no (unknown) (unknown) HEENT exam (units (unk nown) date) within normal unknown) limits. Extremities without edema. DTRs are normal. 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 (unknown) (no (unknown) (unknown) History of (units (unk nown) date) removal of skin unknown) mole (unknown) (no (unknown) (unknown) Hyperlipidemia (units (unknown) date) unknown) (unknown) (no (unknown) (unknown) Hypertension (units (u nknown) date) unknown) (unknown) (no (unknown) (unknown) [facility] (units (unknown) date) [address] unknown) [place] [address] (unknown) (no (unknown) (unknown) Labor and (units (unkn own) date) Delivery Triage unknown) Note (unknown) (no (unknown) (unknown) Labs (units (unkno wn) date) unknown) (unknown) (no (unknown) (unknown) Lung cancer (units (un known) date) unknown) (unknown) (no (unknown) (unknown) Medical History (units (unknown) date) (Reviewed unknown) 10/10/22 @ 21:45 by Linh Mcginnis, TAB, STEVE) (unknown) (no (unknown) (unknown) Mental health (units ( unknown) date) problem unknown) (unknown) (no (unknown) (unknown) Mother (units (unkno wn) date) Gestational unknown) diabetes (unknown) (no (unknown) (unknown) Narrative (units (unkn own) date) unknown) (unknown) (no (unknown) (unknown) Narrative: (units (unk nown) date) unknown) (unknown) (no (unknown) (unknown) OB Disposition: (units (unknown) date) home unknown) (unknown) (no (unknown) (unknown) Objective (units (unkn own) date) unknown) (unknown) (no (unknown) (unknown) On-call OB (units (unk nown) date) Provider: Rebecca Lilly (unknown) (no (unknown) (unknown) Ovarian cyst (units (u nknown) date) () unknown) (unknown) (no (unknown) (unknown) PFSH (units (unkno wn) date) unknown) (unknown) (no (unknown) (unknown) PID (acute (units (unk nown) date) pelvic unknown) inflammatory disease) (unknown) (no (unknown) (unknown) PTSD (units (unkno wn) date) (post-traumatic unknown) stress disorder) () (unknown) (no (unknown) (unknown) Patient (units (unkno wn) date) complains of mild unknown) headache and her forehead. No scotomata or epigastric (unknown) (no (unknown) (unknown) Patient: (units (unkno wn) date) Sites,Saima N unknown) MR#: [id number] (unknown) (no (unknown) (unknown) Plan/Disposition (units (unknown) date) unknown) (unknown) (no (unknown) (unknown) Plan: (units (unkno wn) date) unknown) (unknown) (no (unknown) (unknown) Prostate cancer (units (unknown) date) unknown) (unknown) (no (unknown) (unknown) Provider: (units (unkn own) date) Rebecca Lilly MD unknown) (unknown) (no (unknown) (unknown) Reason for (units (unk nown) date) Evaluation: Yes unknown) other 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 labs are normal. Patient is reassured. (unknown) (no (unknown) (unknown) Variability: (units (u nknown) date) Moderate (11-25) unknown) (unknown) (no (unknown) (unknown) Visit (units (unkno wn) date) Information unknown) (unknown) (no (unknown) (unknown) Vital Signs (units (un known) date) unknown) (unknown) (no (unknown) (unknown) Vital Signs: (units (u nknown) date) unknown) (unknown) (no (unknown) (unknown) [Embedded Image (units (unknown) date) Not Available] unknown) (unknown) (no (unknown) (unknown) alcohol intake: [...] (unknown) date) year weight has: unknown) other (ofcspxgulp-72-64 lb) (unknown) (no (unknown) (unknown) education level: [...] status: unknown) unemployed (unknown) (no (unknown) (unknown) pain. Good (units (unknown) date) movement. No unknown) contractions. No fevers. (unknown) (no (unknown) (unknown) pets and (units (unkno wn) date) animals: Yes (1 unknown) dog 1 cat; aware of toxo) (unknown) (no (unknown) (unknown) preeclampsia (units (u nknown) date) symptoms with unknown) elevated blood pressure at home with headache (unknown) (no (unknown) (unknown) seatbelt use: (units [...] detector in home: unknown) Yes Result panel 2390 (unknown) (no date) (unknown) (unknown) 0.12 gram/24h (unkn own) (unknown) (no date) (unknown) (unknown) 57.6 mg/dl (unkn own) (unknown) (no date) (unknown) (unknown) 7 mg/dl (unkn own) Result panel 2391 (unknown) (no (unknown) (unknown) (no value) (units [...] wn) date) unknown) (unknown) (no (unknown) (unknown) 11/17/22 (units (unkno wn) date) unknown) (unknown) (no (unknown) (unknown) 11/17/22] (units (unkn own) date) unknown) (unknown) (no (unknown) (unknown) [id number] (units (unkno wn) date) unknown) (unknown) (no (unknown) (unknown) 01/26/22 5 (units (unk nown) date) spontaneous unknown) (unknown) (no (unknown) (unknown) 06/09/22 (units (unkno wn) date) unknown) (unknown) (no (unknown) (unknown) 06/29/20 5 (units (unk nown) date) spontaneous unknown) (unknown) (no (unknown) (unknown) 07/07/22 (units (unkno wn) date) unknown) (unknown) (no (unknown) (unknown) 11w 5d 123 lb (units ( unknown) date) unknown) (unknown) (no (unknown) (unknown) 08/11/22 (units (unkno wn) date) unknown) (unknown) (no (unknown) (unknown) 14:45 (units (unkno wn) date) unknown) (unknown) (no [...] (unknown) LISA Watson (units ( unknown) date) [id number] unknown) (unknown) (no (unknown) (unknown) Anemia (-2020) (units (unknown) date) unknown) (unknown) (no (unknown) (unknown) Anesthesia (units (unk nown) date) unknown) (unknown) (no (unknown) (unknown) Aneuploidy (units (unk nown) date) Screening unknown) Offered: Accepted (undecided, will probably get quad (unknown) (no (unknown) (unknown) Anticipate , (units (unknown) date) [facility] unknown) (unknown) (no (unknown) (unknown) Anticipated (units (un known) date) course of unknown) care: discussed (unknown) (no (unknown) (unknown) Anxiety (units (unkno wn) date) unknown) (unknown) (no (unknown) (unknown) Assessment and (units (unknown) date) Plan unknown) (unknown) (no (unknown) (unknown) Attending Dr: (units ( unknown) date) Rebecca Lilly MD unknown) (unknown) (no (unknown) (unknown) Autism (units (unkno wn) date) unknown) (unknown) (no (unknown) (unknown) B6. On review of (units (unknown) date) options she unknown) desires Zofran, Rx sent. History of severe (unknown) (no (unknown) (unknown) BMI 25.8 (units (unkno wn) date) unknown) (unknown) (no (unknown) (unknown) BP 112/64 (units (unkn own) date) unknown) (unknown) (no (unknown) (unknown) Bipolar disorder (units (unknown) date) unknown) (unknown) (no (unknown) (unknown) (units (unkno wn) date) Plan/Preferences unknown) (unknown) (no (unknown) (unknown) Planning (units (unknown) date) unknown) (unknown) (no (unknown) (unknown) Blood Pressure (units (unknown) date) Location Lt unknown) brachial (unknown) (no (unknown) (unknown) Blood [...] (unknown) (unknown) Confirmed (units (unkn own) date) 11/17/22] unknown) (unknown) (no (unknown) (unknown) [place] ED. (units (unknown) date) 20 week US normal unknown) (unknown) (no (unknown) (unknown) Current Estimate (units (unknown) date) 12/24/22 LMP unknown) (Certain) 34w 5d (unknown) (no (unknown) (unknown) Current (units (unkno wn) date) History unknown) (unknown) (no (unknown) (unknown) : 2000 (units (unknown) date) Acct:[id number] unknown) (unknown) (no (unknown) (unknown) Date of [...] date) . unknown) (unknown) (no (unknown) (unknown) Saima and (units (un known) date) Constantine returns unknown) today for her FRED visit now 30+ 4 weeks (unknown) (no (unknown) (unknown) Saima is here (units (unknown) date) for a FRED visit @ unknown) 15wk5d. She is accompanied by her (unknown) (no (unknown) (unknown) Saima presents (units (unknown) date) for an are OB unknown) visit at 20 weeks 5 days. Constantine, (unknown) (no (unknown) (unknown) Saima returns (units (unknown) date) today for her [...] (unknown) (unknown) Documented By: (units (unknown) date) Rebecca Lilly MD unknown) 11/17/22 1444 (unknown) (no (unknown) (unknown) Draft (units (unkno [...] 10/10/22 @ 21:45 by Linh Mcginnis, TAB, PRINT JOURNALIST) (unknown) (no (unknown) (unknown) Father Diabetes (units [...] Intake performed (units (unknown) date) by: unknown) Torie Thrasher (unknown) (no (unknown) (unknown) Intake (units (unkno [...] ( unknown) date) Allergies Allergy unknown) (Verified 11/17/22 14:45) (unknown) (no (unknown) (unknown) Notes (units (unkno [...] nknown) date) unknown) (unknown) (no (unknown) (unknown) OB check (units (unkno wn) date) unknown) (unknown) (no (unknown) (unknown) On control (units (unknown) date) at conception?: unknown) No (unknown) (no (unknown) (unknown) Other Estimates (units (unknown) date) 12/22/22 unknown) Ultrasound #1 35w 0d (unknown) (no (unknown) (unknown) Ovarian cyst (units (u nknown) date) () unknown) (unknown) (no (unknown) (unknown) PFSH (units (unkno wn) date) unknown) (unknown) (no (unknown) (unknown) PID (acute (units (unk nown) date) pelvic unknown) inflammatory disease) (unknown) (no (unknown) (unknown) PTSD (units (unkno wn) date) (post-traumatic unknown) stress disorder) () (unknown) (no (unknown) (unknown) Pap performed?: (units (unknown) date) No unknown) (unknown) (no (unknown) (unknown) Para 0 (units [...] has not been (unknown) (no (unknown) (unknown) Patient's age 37 (units (unknown) date) years or older as unknown) of estimated date of delivery: No (unknown) (no (unknown) (unknown) Patient: (units (unkno wn) date) Sites,[facility] N unknown) MR#: [id number] (unknown) (no (unknown) (unknown) Mandarin Tutor: (units ( unknown) date) CHAR Garg unknown) [...] Ob (units (unk nown) date) Provider: unknown) Chaka Flores (unknown) (no (unknown) (unknown) Prior (units (unkno [...] (unknown) (unknown) Ultrasound (units (unk nown) date) performed?: No unknown) (unknown) (no (unknown) (unknown) Ultrasound (units (unk [...] (unknown) Visit Reasons: (units (unknown) date) OB Ck *Mark unknown) (unknown) (no (unknown) (unknown) Vitals (units (unkno wn) date) unknown) (unknown) (no (unknown) (unknown) Vitamins and (units (u nknown) date) iron, Diet and unknown) weight gain, Fish and mercury intake, Smoking, (unknown) (no (unknown) (unknown) WG (units (unkno wn) date) unknown) (unknown) (no (unknown) (unknown) Weeks (units (unkno wn) date) gestation:: 34 unknown) (unknown) (no (unknown) (unknown) Weight 146 [...] (unknown) (no (unknown) (unknown) done at [facility] (units (unknown) date) health showed unknown) normal anatomy, placenta and normal cervical (unknown) (no (unknown) (unknown) duration: 15-30 (units (unknown) date) minutes/day unknown) (unknown) (no (unknown) (unknown) during the past (units (unknown) date) year weight has: unknown) other (wyjmflhanr-69-79 lb) (unknown) (no (unknown) (unknown) education level: [...] mg PO unknown) DAILY 04/27/22 [History Confirmed 11/17/22] (unknown) (no (unknown) (unknown) gestational age. (units (unknown) date) She is had 2 more unknown) visits to the center regarding (unknown) (no (unknown) (unknown) grandfather (units (un known) date) today who came unknown) from [place] to stay with her through (unknown) (no [...] trying unknown) to establish with care in [place] (unknown) (no (unknown) (unknown) irritability was (units [...] stopped unknown) now. Seen in ED in [place] yesterday, (unknown) (no (unknown) (unknown) lives (units [...] (no (unknown) (unknown) prenat.vits,jack, (units (unknown) date) xsm-mbcd-gxebh 1 unknown) tab PO DAILY 04/27/22 [History [...] unknown) effort is made to edit content, dental specialist errors (unknown) (no (unknown) (unknown) special mirella [...] (units ( unknown) date) [Rx Confirmed unknown) 11/17/22] (unknown) (no (unknown) (unknown) takes the 10 [...] with unknown) persistent bad cramping when in [place] and I (unknown) (no (unknown) (unknown) weeks prior to (units (unknown) date) positive unknown) test, having a feeling she may be . (unknown) (no (unknown) (unknown) weeks, in (units (unkn own) date) [place] with unknown) in loss for about 6 [...] detector in home: unknown) Yes Result panel [id number] (unknown) (no (unknown) (unknown) (no value) (units (unk nown) date) unknown) (unknown) (no (unknown) (unknown) (+14 lb) 98/66 N (units (unknown) date) unknown) (unknown) (no (unknown) (unknown) (+15 lb) 98/62 N (units (unknown) date) unknown) (unknown) (no (unknown) (unknown) (+21 lb) 112/64 (units (unknown) date) unknown) (unknown) (no (unknown) (unknown) (+21 lb) 92/68 N (units (unknown) date) unknown) (unknown) (no (unknown) (unknown) (+6 lb) 104/68 N (units (unknown) date) unknown) (unknown) (no (unknown) (unknown) (-2 lb) 108/60 N (units (unknown) date) unknown) (unknown) (no (unknown) (unknown) (-4 lb) 100/70 N (units (unknown) date) unknown) (unknown) (no (unknown) (unknown) (1) 34 weeks (units (u nknown) date) gestation of unknown) : (unknown) (no (unknown) (unknown) Genetic (units (unkn [...] wn) date) unknown) (unknown) (no (unknown) (unknown) 11/17/22 1455 (units ( unknown) date) unknown) (unknown) (no (unknown) (unknown) 11/17/22 (units (unkno wn) date) unknown) (unknown) (no (unknown) (unknown) 11/17/22] (units (unkn own) date) unknown) (unknown) (no (unknown) (unknown) [id number] (units (unkno wn) date) unknown) (unknown) (no (unknown) (unknown) 01/26/22 5 (units (unk nown) date) spontaneous unknown) (unknown) (no (unknown) (unknown) 06/09/22 (units (unkno wn) date) unknown) (unknown) (no (unknown) (unknown) 06/29/20 5 (units (unk nown) date) spontaneous unknown) (unknown) (no (unknown) (unknown) 07/07/22 (units (unkno wn) date) unknown) (unknown) (no (unknown) (unknown) 11w 5d 123 lb (units ( unknown) date) unknown) (unknown) (no (unknown) (unknown) 08/11/22 (units (unkno wn) date) unknown) (unknown) (no (unknown) (unknown) 14:45 (units (unkno wn) date) unknown) (unknown) (no (unknown) (unknown) 15w 5d 121 lb (units ( unknown) date) unknown) (unknown) (no (unknown) (unknown) 21 yo here (units (unknown) date) for IOB visit unknown) @11wk5d. An 8 week US was c/w LMP-TIFFANIE. H/o (unknown) (no (unknown) (unknown) 2 days ago on (units ( unknown) date) Labor and unknown) delivery for home elevated blood pressure and headache. (unknown) (no (unknown) (unknown) 2 wks (units [...] unknown) date) unknown) (unknown) (no (unknown) (unknown) 34w 5d 146 lb (units ( unknown) date) [...] own) date) unknown) (unknown) (no (unknown) (unknown) [place], [place] (units ( unknown) date) [id number] unknown) (unknown) (no (unknown) (unknown) Anemia (-2020) (units (unknown) date) unknown) (unknown) (no (unknown) (unknown) Anesthesia (units (unk nown) date) unknown) (unknown) (no (unknown) (unknown) Aneuploidy (units (unk nown) date) Screening unknown) Offered: Accepted (undecided, will probably get quad (unknown) (no (unknown) (unknown) Anticipate , (units (unknown) date) [facility] unknown) (unknown) (no (unknown) (unknown) Anticipated (units (un known) date) course of unknown) care: discussed (unknown) (no (unknown) (unknown) Anxiety (units (unkno wn) date) unknown) (unknown) (no (unknown) (unknown) Assessment and (units (unknown) date) Plan unknown) (unknown) (no (unknown) (unknown) Attending Dr: (units ( unknown) date) Rebecca Lilly MD unknown) (unknown) (no (unknown) (unknown) Autism (units (unkno wn) date) unknown) (unknown) (no (unknown) (unknown) B6. On review of (units (unknown) date) options she unknown) desires Jing, Rx sent. History of severe (unknown) (no (unknown) (unknown) BMI 25.8 (units (unkno wn) date) unknown) (unknown) (no (unknown) (unknown) BP 112/64 (units (unkn own) date) unknown) (unknown) (no (unknown) (unknown) Bipolar disorder (units (unknown) date) unknown) (unknown) (no (unknown) (unknown) (units (unkno wn) date) Plan/Preferences unknown) (unknown) (no (unknown) (unknown) Planning (units (unknown) date) unknown) (unknown) (no (unknown) (unknown) Blood Pressure (units (unknown) date) Location Lt unknown) brachial (unknown) (no (unknown) (unknown) Blood [...] (unknown) (unknown) Confirmed (units (unkn own) date) 11/17/22] unknown) (unknown) (no (unknown) (unknown) [place] ED. (units (unknown) date) 20 week US normal unknown) (unknown) (no (unknown) (unknown) Current Estimate (units (unknown) date) 12/24/22 LMP unknown) (Certain) 34w 5d (unknown) (no (unknown) (unknown) Current (units (unkno wn) date) History unknown) (unknown) (no (unknown) (unknown) : 2000 (units (unknown) date) Acct:[id number] unknown) (unknown) (no (unknown) (unknown) Date of [...] date) . unknown) (unknown) (no (unknown) (unknown) Saima and (units (un known) date) Constantine returns unknown) today for her FRED visit now 30+ 4 weeks (unknown) (no (unknown) (unknown) Saima is here (units (unknown) date) for a FRED visit @ unknown) 15wk5d. She is accompanied by her (unknown) (no (unknown) (unknown) Saima presents (units (unknown) date) for an are OB unknown) visit at 20 weeks 5 days. Constantine, (unknown) (no (unknown) (unknown) Saima returns (units (unknown) date) today for her [...] (unknown) (unknown) Documented By: (units (unknown) date) Rebecca Lilly MD unknown) 11/17/22 1444 (unknown) (no (unknown) (unknown) TIFFANIE Calculator (units [...] Intake performed (units (unknown) date) by: unknown) Torie Thrasher (unknown) (no (unknown) (unknown) Intake (units (unkno [...] absent 4wk unknown) (unknown) (no (unknown) (unknown) NF (units (unkno wn) date) unknown) (unknown) (no (unknown) (unknown) No Known Drug (units ( unknown) date) Allergies Allergy unknown) (Verified 11/17/22 14:45) (unknown) (no (unknown) (unknown) Notes (units (unkno [...] nknown) date) unknown) (unknown) (no (unknown) (unknown) OB check (units (unkno wn) date) unknown) (unknown) (no (unknown) (unknown) On control (units (unknown) date) at conception?: unknown) No (unknown) (no (unknown) (unknown) Other Estimates (units (unknown) date) 12/22/22 unknown) Ultrasound #1 35w 0d (unknown) (no (unknown) (unknown) Ovarian cyst (units (u nknown) date) () unknown) (unknown) (no (unknown) (unknown) PFSH (units (unkno wn) date) unknown) (unknown) (no (unknown) (unknown) PID (acute (units (unk nown) date) pelvic unknown) inflammatory disease) (unknown) (no (unknown) (unknown) PTSD (units (unkno wn) date) (post-traumatic unknown) stress disorder) () (unknown) (no (unknown) (unknown) Pap performed?: (units (unknown) date) No unknown) (unknown) (no (unknown) (unknown) Para 0 (units [...] date) unknown) (unknown) (no (unknown) (unknown) Patient comes in (units (unknown) date) at 34 weeks 5 unknown) days with no complaints. She was evaluated (unknown) (no (unknown) (unknown) Patient was (units (un known) date) previously unknown) scheduled for iron infusions but this has not been (unknown) (no (unknown) (unknown) Patient's age 37 (units (unknown) date) years or older as unknown) of estimated date of delivery: No (unknown) (no (unknown) (unknown) Patient: (units (unkno wn) date) Sites,Saima N unknown) MR#: [id number] (unknown) (no (unknown) (unknown) Mandarin Tutor: (units ( unknown) date) CHAR Garg unknown) [...] Ob (units (unk nown) date) Provider: unknown) Chaka Flores (unknown) (no (unknown) (unknown) Prior (units (unkno [...] (unknown) date) unknown) (unknown) (no (unknown) (unknown) She had normal (units (unknown) date) PIH labs. She unknown) denies any headache currently. Baby is moving (unknown) (no (unknown) (unknown) Signed By: (units (unk nown) date) <Electronically unknown) signed by Rebecca Lilly MD> (unknown) (no (unknown) (unknown) Signed (units [...] 10/10/22 @ 21:45 by Linh Mcginnis, TAB, PRINT JOURNALIST) (unknown) (no (unknown) (unknown) Surrogate (units (unkn [...] (unknown) (unknown) Ultrasound (units (unk nown) date) performed?: No unknown) (unknown) (no (unknown) (unknown) Ultrasound (units (unk [...] (unknown) Visit Date: (units (un known) date) 11/17/22 Last unknown) Updated by: Rebecca Lilly MD (unknown) (no (unknown) (unknown) Visit Date: [...] (unknown) Visit Reasons: (units (unknown) date) OB Ck *Mark unknown) (unknown) (no (unknown) (unknown) Vitals (units (unkno wn) date) unknown) (unknown) (no (unknown) (unknown) Vitamins and (units (u nknown) date) iron, Diet and unknown) weight gain, Fish and mercury intake, Smoking, (unknown) (no (unknown) (unknown) WG (units (unkno wn) date) unknown) (unknown) (no (unknown) (unknown) Weeks (units (unkno wn) date) gestation:: 34 unknown) (unknown) (no (unknown) (unknown) Weight 146 lb (units ( unknown) date) unknown) (unknown) (no (unknown) (unknown) Yes no 128 34 (units ( unknown) date) Uncertain absent unknown) 2wk (unknown) (no (unknown) (unknown) Zika virus (units [...] (unknown) (no (unknown) (unknown) done at [facility] (units (unknown) date) health showed unknown) normal anatomy, placenta and normal cervical (unknown) (no (unknown) (unknown) duration: 15-30 (units (unknown) date) minutes/day unknown) (unknown) (no (unknown) (unknown) during the past (units (unknown) date) year weight has: unknown) other (nffqpwgvvb-64-00 lb) (unknown) (no (unknown) (unknown) education level: [...] mg PO unknown) DAILY 04/27/22 [History Confirmed 11/17/22] (unknown) (no (unknown) (unknown) gestational age. (units (unknown) date) She is had 2 more unknown) visits to the center regarding (unknown) (no (unknown) (unknown) grandfather (units (un known) date) today who came unknown) from [place] to stay with her through (unknown) (no [...] apartment unknown) (unknown) (no (unknown) (unknown) in 2 weeks. (units (un known) date) Routine unknown) precautions reviewed with the patient. (unknown) (no (unknown) (unknown) in a few weeks. (units (unknown) date) Advised her to unknown) continue with pelvic rest for now . She reports (unknown) (no (unknown) (unknown) in the area. (units (u nknown) date) Discussed trying unknown) to establish with care in [place] (unknown) (no (unknown) (unknown) irritability was (units [...] stopped unknown) now. Seen in ED in [place] yesterday, (unknown) (no (unknown) (unknown) lives (units [...] (no (unknown) (unknown) prenat.vits,jack, (units (unknown) date) twl-qoyu-lavks 1 unknown) tab PO DAILY 04/27/22 [History [...] unknown) effort is made to edit content, dental specialist errors (unknown) (no (unknown) (unknown) special mirella [...] (units ( unknown) date) [Rx Confirmed unknown) 11/17/22] (unknown) (no (unknown) (unknown) takes the 10 [...] with unknown) persistent bad cramping when in [place] and I (unknown) (no (unknown) (unknown) weeks prior to (units (unknown) date) positive unknown) test, having a feeling she may be . (unknown) (no (unknown) (unknown) weeks, in (units (unkn own) date) [place] with unknown) in loss for about 6 weeks, then 1.5-2 weeks in (unknown) (no (unknown) (unknown) well-balanced (units ( unknown) date) diet: daily or unknown) most days (unknown) (no (unknown) (unknown) well. No vaginal (units (unknown) date) bleeding. No unknown) contractions. Good movement. Follow-up (unknown) (no (unknown) (unknown) will be drawn [...] detector in home: unknown) Yes Result panel 2393 (unknown) (no (unknown) (unknown) (no value) (units (unk nown) date) unknown) (unknown) (no (unknown) (unknown) [id number] (units (unkno wn) date) unknown) (unknown) (no [...] (unknown) (unknown) : 2000 (units (unknown) date) Acct:[id number] unknown) (unknown) (no (unknown) (unknown) Date of Service: (units (unknown) date) 11/27/22 unknown) (unknown) (no (unknown) (unknown) Date of (units (unkno wn) date) evaluation: unknown) 11/27/22 (unknown) (no (unknown) (unknown) Depression (units (unk nown) date) unknown) (unknown) (no (unknown) (unknown) Diabetes (units (unkno wn) date) mellitus unknown) (unknown) (no (unknown) (unknown) Family History (units (unknown) date) (Reviewed unknown) 10/10/22 @ 21:45 by Linh Mcginnis, TAB, PRINT JOURNALIST) (unknown) (no (unknown) (unknown) Father Diabetes (units [...] nknown) date) unknown) (unknown) (no (unknown) (unknown) [facility] (units (unknown) date) [address] unknown) [place] [address] (unknown) (no (unknown) (unknown) Labor and (units (unkn own) date) Delivery Triage unknown) Note (unknown) (no (unknown) (unknown) Lung cancer (units (un known) date) unknown) (unknown) (no (unknown) (unknown) Medical History (units (unknown) date) (Reviewed unknown) 10/10/22 @ 21:45 by Linh Mcginnis, TAB, PRINT JOURNALIST) (unknown) (no (unknown) (unknown) Mental health (units [...] (unknown) (unknown) Patient: (units (unkno wn) date) Sites,Saima N unknown) MR#: [id number] (unknown) (no (unknown) (unknown) Prostate cancer (units (unknown) date) unknown) (unknown) (no (unknown) (unknown) Provider: (units (unkn own) date) Alondra Johns unknown) a T C.N.M. (unknown) (no (unknown) (unknown) Recurrent UTI (units [...] (unknown) date) year weight has: unknown) other (abdzikpllc-80-68 lb) (unknown) (no (unknown) (unknown) education level: [...] detector in home: unknown) Yes Result panel 2394 (unknown) (no date) (unknown) (unknown) 0.2 e.u./dl (unkn own) (unknown) (no date) (unknown) (unknown) 1.010 (units (unkn own) unknown) (unknown) (no date) (unknown) (unknown) 6.0 (units (unkn own) unknown) (unknown) (no date) (unknown) (unknown) CLEAR (units (unkn own) unknown) (unknown) (no date) (unknown) (unknown) NEGATIVE (units (unkn own) unknown) (unknown) (no date) (unknown) (unknown) NEGATIVE g/dl (unkn own) (unknown) (no date) (unknown) (unknown) POSITIVE (units (unkn own) unknown) (unknown) (no date) (unknown) (unknown) TRACE (units (unkn own) unknown) (unknown) (no date) (unknown) (unknown) YELLOW (units (unkn own) unknown) (unknown) (no date) (unknown) (unknown) YELLOW (units (unkn own) unknown) Result panel 2395 (unknown) (no date) (unknown) (unknown) 0-1/HPF (units (unkn own) unknown) (unknown) (no date) (unknown) (unknown) 0.2 e.u./dl (unkn own) (unknown) (no date) (unknown) (unknown) 1-5 /HPF (units (unkn own) unknown) (unknown) (no date) (unknown) (unknown) 1-5 /HPF (units (unkn own) unknown) (unknown) (no date) (unknown) (unknown) 1.010 (units (unkn own) unknown) (unknown) (no date) (unknown) (unknown) 5-10/HPF (units (unkn own) unknown) (unknown) (no date) (unknown) (unknown) 6.0 (units (unkn own) unknown) (unknown) (no date) (unknown) (unknown) CLEAR (units (unkn own) unknown) (unknown) (no date) (unknown) (unknown) NEGATIVE (units (unkn own) unknown) (unknown) (no date) (unknown) (unknown) NEGATIVE g/dl (unkn own) (unknown) (no date) (unknown) (unknown) Occasional (units (un known) (0-1) unknown) (unknown) (no date) (unknown) (unknown) POSITIVE (units (unkn own) unknown) (unknown) (no date) (unknown) (unknown) Specimen (units (unkn own) Cultured unknown) (unknown) (no date) (unknown) (unknown) TRACE (units (unkn own) unknown) (unknown) (no date) (unknown) (unknown) YELLOW (units (unkn own) unknown) (unknown) (no date) (unknown) (unknown) YELLOW (units (unkn own) unknown) Result panel 2396 (unknown) (no (unknown) (unknown) (no value) (units (unk nown) date) unknown) (unknown) (no (unknown) (unknown) [id number] (units (unkno wn) date) unknown) (unknown) (no [...] (unknown) (unknown) : 2000 (units (unknown) date) Acct:[id number] unknown) (unknown) (no (unknown) (unknown) Date of Service: (units (unknown) date) 11/27/22 unknown) (unknown) (no (unknown) (unknown) Date of (units (unkno wn) date) evaluation: unknown) 11/27/22 (unknown) (no (unknown) (unknown) Depression (units (unk [...] nknown) date) unknown) (unknown) (no (unknown) (unknown) [facility] (units (unknown) date) [address] unknown) [place] [id number] (unknown) (no (unknown) (unknown) Labor and (units (unkn own) date) Delivery Triage unknown) Note (unknown) (no (unknown) (unknown) Lung cancer (units (un known) date) unknown) (unknown) (no (unknown) (unknown) Medical History (units (unknown) date) (Reviewed unknown) 10/10/22 @ 21:45 by Linh Mcginnis, TAB, STEVE) (unknown) (no (unknown) (unknown) Mental health (units [...] (unknown) (unknown) Patient: (units (unkno wn) date) Blane,Saima N unknown) MR#: [id number] (unknown) (no (unknown) (unknown) Prostate cancer (units (unknown) date) unknown) (unknown) (no (unknown) (unknown) Provider: (units (unkn own) date) Alondra Johns unknown) a T C.N.M. (unknown) (no (unknown) (unknown) Recurrent UTI (units [...] (unknown) date) year weight has: unknown) other (afhylfetfq-58-31 lb) (unknown) (no (unknown) (unknown) education level: [...] detector in home: unknown) Yes Result panel 2397 (unknown) (no (unknown) (unknown) (no value) (units (unk nown) date) unknown) (unknown) (no (unknown) (unknown) [id number] (units (unkno wn) date) unknown) (unknown) (no (unknown) (unknown) 22YO @ (units (un known) date) [id number] here unknown) for evaluation of contractions. has (unknown) (no (unknown) (unknown) ADHD (units (unkno [...] (unknown) (unknown) : 2000 (units (unknown) date) Acct:[id number] unknown) (unknown) (no (unknown) (unknown) Date of Service: (units (unknown) date) 11/27/22 unknown) (unknown) (no (unknown) (unknown) Date of (units (unkno wn) date) evaluation: unknown) 11/27/22 (unknown) (no (unknown) (unknown) Depression (units (unk nown) date) unknown) (unknown) (no (unknown) (unknown) Diabetes (units (unkno wn) date) mellitus unknown) (unknown) (no (unknown) (unknown) Family History (units (unknown) date) (Reviewed unknown) 10/10/22 @ 21:45 by Linh Mcginnis CNM, ARNP) (unknown) (no (unknown) (unknown) Father Diabetes (units [...] nknown) date) unknown) (unknown) (no (unknown) (unknown) [facility] (units (unknown) date) [address] unknown) [place] [address] (unknown) (no (unknown) (unknown) Labor and (units (unkn own) date) Delivery Triage unknown) Note (unknown) (no (unknown) (unknown) Lung cancer (units (un known) date) unknown) (unknown) (no (unknown) (unknown) Medical History (units (unknown) date) (Reviewed unknown) 10/10/22 @ 21:45 by Linh Mcginnis CNM, STEVE) (unknown) (no (unknown) (unknown) Mental health (units ( unknown) date) problem unknown) (unknown) (no (unknown) (unknown) Mother (units (unkno wn) date) Gestational unknown) diabetes (unknown) (no (unknown) (unknown) On-call OB (units [...] (unknown) (unknown) Patient: (units (unkno wn) date) Sites,Saima N unknown) MR#: [id number] (unknown) (no (unknown) (unknown) Prostate cancer (units (unknown) date) unknown) (unknown) (no (unknown) (unknown) Provider: (units (unkn own) date) Alondra Johns unknown) ivonne Bojorquez C.N.MSadia (unknown) (no (unknown) (unknown) Reason for (units (unk nown) date) Evaluation: Yes unknown) rule out labor (unknown) (no (unknown) (unknown) Recurrent UTI [...] (unknown) date) year weight has: unknown) other (vxirmaituh-13-35 lb) (unknown) (no (unknown) (unknown) education level: [...] detector in home: unknown) Yes Result panel 2398 (unknown) (no (unknown) (unknown) (no value) (units (unk nown) date) unknown) (unknown) (no (unknown) (unknown) (past 8 hours): (units (unknown) date) unknown) (unknown) (no (unknown) (unknown) [id number] (units (unkno wn) date) unknown) (unknown) (no (unknown) (unknown) 22YO @ (units (un known) date) 70dcz5rsr here unknown) for evaluation of contractions. Has been (unknown) (no (unknown) (unknown) ADHD (units [...] date) unknown) (unknown) (no (unknown) (unknown) BP 118/73mmHg, (units (unknown) date) HR 88, RR 16/min, unknown) T 36.6C Temporal (unknown) (no (unknown) (unknown) Bipolar disorder (units (unknown) date) unknown) (unknown) (no (unknown) (unknown) Brother Anxiety (units (unknown) date) unknown) (unknown) (no (unknown) (unknown) Cancer (units (unkno wn) date) unknown) (unknown) (no (unknown) (unknown) Comments/Additio (units (unknown) date) nal reasons for unknown) admission: (unknown) (no (unknown) (unknown) : 2000 (units (unknown) date) Acct:[id number] unknown) (unknown) (no (unknown) (unknown) Date of Service: (units (unknown) date) 11/27/22 unknown) (unknown) (no (unknown) (unknown) Date of (units (unkno wn) date) evaluation: unknown) 11/27/22 (unknown) (no (unknown) (unknown) Depression (units (unk nown) date) unknown) (unknown) (no (unknown) (unknown) Diabetes (units (unkno wn) date) mellitus unknown) (unknown) (no (unknown) (unknown) Exam (units (unkno wn) date) unknown) (unknown) (no (unknown) (unknown) Family History (units (unknown) date) (Reviewed unknown) 11/27/22 @ 20:32 by Chelsy Johns CNM) (unknown) (no (unknown) (unknown) Father Diabetes (units [...] nknown) date) unknown) (unknown) (no (unknown) (unknown) [facility] (units (unknown) date) [address] unknown) [place] [address] (unknown) (no (unknown) (unknown) Labor and (units (unkn own) date) Delivery Triage unknown) Note (unknown) (no (unknown) (unknown) Lung cancer (units (un known) date) unknown) (unknown) (no (unknown) (unknown) Medical History (units (unknown) date) (Reviewed unknown) 11/27/22 @ 20:32 by Chelsy Johns CNM) (unknown) (no (unknown) (unknown) Mental health (units ( unknown) date) problem unknown) (unknown) (no (unknown) (unknown) Mother (units (unkno wn) date) Gestational unknown) diabetes (unknown) (no (unknown) (unknown) On-call OB (units [...] (unknown) (unknown) Patient: (units (unkno wn) date) Sites,Saima N unknown) MR#: [id number] (unknown) (no (unknown) (unknown) Prostate cancer (units (unknown) date) unknown) (unknown) (no (unknown) (unknown) Provider: (units (unkn own) date) Alondra Johns unknown) ivonne Bojorquez C.N.MSadia (unknown) (no (unknown) (unknown) Reason for (units (unk nown) date) Evaluation: Yes unknown) rule out labor 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 (unknown) (no (unknown) (unknown) Schizophrenia (units ( unknown) date) unknown) (unknown) (no (unknown) (unknown) See above (units (unkn own) date) unknown) (unknown) (no (unknown) (unknown) Seizures [...] Social History (units (unknown) date) (Reviewed unknown) 11/27/22 @ 20:32 by Chelsy Johns CNM) (unknown) (no (unknown) (unknown) Surgical History (units (unknown) date) (Reviewed unknown) 11/27/22 @ 20:32 by Chelsy Johns CNM) (unknown) (no (unknown) (unknown) Type(s) of (units [...] (unknown) date) year weight has: unknown) other ([id number] lb) (unknown) (no (unknown) (unknown) education level: (units (unknown) date) high school unknown) (unknown) (no (unknown) (unknown) every 2-7 (units (unkn own) date) minutes. +FM. No unknown) vaginal bleeding or leaking of fluid. (unknown) (no (unknown) (unknown) experiencing (units (u nknown) date) contractions unknown) since last night that have steadily progressed in (unknown) (no (unknown) (unknown) fire (units (unkno wn) date) 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 unknown) home: Yes (unknown) (no (unknown) (unknown) firearms in (units (un known) date) home: Yes unknown) firearms unloaded and locked: Yes (unknown) (no (unknown) (unknown) frequency and (units ( unknown) date) intensity. Now unknown) feeling contractions that are rated at a 6/10 pain (unknown) (no (unknown) (unknown) household (units (unkn [...] detector in home: unknown) Yes Result panel [id number] (unknown) (no date) (unknown) (unknown) POS for (units (unkn own) Grp B Strep unknown) Result panel 2400 (unknown) (no (unknown) (unknown) (no value) (units (unk nown) date) unknown) (unknown) (no (unknown) (unknown) (past 8 hours): (units (unknown) date) unknown) (unknown) (no (unknown) (unknown) [id number] (units (unkno wn) date) unknown) (unknown) (no (unknown) (unknown) 22YO @ (units (un known) date) [id number] here unknown) for evaluation of contractions. Has been (unknown) (no (unknown) (unknown) ADHD (units [...] date) unknown) (unknown) (no (unknown) (unknown) BP 118/73mmHg, (units (unknown) date) HR 88, RR 16/min, unknown) T 36.6C Temporal (unknown) (no (unknown) (unknown) Baseline (units (unknown) date) heart rate: 130 unknown) (unknown) (no (unknown) (unknown) Bipolar disorder (units (unknown) date) unknown) (unknown) (no (unknown) (unknown) Brother Anxiety (units (unknown) date) unknown) (unknown) (no (unknown) (unknown) CE by RN (units (unkno wn) date) unknown) (unknown) (no (unknown) (unknown) Cancer (units (unkno wn) date) unknown) (unknown) (no (unknown) (unknown) Category of (units (un known) date) Tracing: Reactive unknown) (unknown) (no (unknown) (unknown) Cervical (units (unkno wn) date) dilation (cm): 1 unknown) (unknown) (no (unknown) (unknown) Cervical (units (unkno wn) date) effacement (%): unknown) 50 (unknown) (no (unknown) (unknown) Comments/Additio (units (unknown) date) nal reasons for unknown) admission: (unknown) (no (unknown) (unknown) Comments: (units (unkn own) date) unknown) (unknown) (no (unknown) (unknown) Contraction (units (un known) date) Frequency unknown) (minutes): 3 (unknown) (no (unknown) (unknown) : 2000 (units (unknown) date) Acct:[id number] unknown) (unknown) (no (unknown) (unknown) Date of Service: (units (unknown) date) 11/27/22 unknown) (unknown) (no (unknown) (unknown) Date of (units (unkno wn) date) evaluation: unknown) 11/27/22 (unknown) (no (unknown) (unknown) Depression (units (unk nown) date) unknown) (unknown) (no (unknown) (unknown) Diabetes (units (unkno wn) date) mellitus unknown) (unknown) (no (unknown) (unknown) Evaluation (units (unk nown) date) unknown) (unknown) (no (unknown) (unknown) Exam (units (unkno wn) date) unknown) (unknown) (no (unknown) (unknown) Family History (units (unknown) date) (Reviewed unknown) 11/27/22 @ 20:32 by Chelsy Johns CNM) (unknown) (no (unknown) (unknown) Father Diabetes (units (unknown) date) mellitus unknown) (unknown) (no (unknown) (unknown) Monitor (units ( unknown) date) Decelerations: unknown) Absent (unknown) (no (unknown) (unknown) monitor (units ( unknown) date) accelerations: unknown) Present (unknown) (no (unknown) (unknown) station: (units (unknown) date) -3 unknown) (unknown) (no (unknown) (unknown) GI (units (unkno wn) date) unknown) (unknown) (no (unknown) (unknown) Grandfather [...] nknown) date) unknown) (unknown) (no (unknown) (unknown) [facility] (units (unknown) date) [address] unknown) [place] [address] (unknown) (no (unknown) (unknown) Labor and (units (unkn own) date) Delivery Triage unknown) Note (unknown) (no (unknown) (unknown) Lung cancer (units (un known) date) unknown) (unknown) (no (unknown) (unknown) Medical History (units (unknown) date) (Reviewed unknown) 11/27/22 @ 20:32 by Chelsy Johns CNM) (unknown) (no (unknown) (unknown) Mental health (units ( unknown) date) problem unknown) (unknown) (no (unknown) (unknown) Mother (units (unkno wn) date) Gestational unknown) diabetes (unknown) (no (unknown) (unknown) On-call OB (units (unk nown) date) Provider: Chelsy unknown) [place] Johns (unknown) (no (unknown) (unknown) Other: (units (unkno wn) date) unknown) (unknown) (no (unknown) (unknown) Ovarian cyst (units (u nknown) date) () unknown) (unknown) (no (unknown) (unknown) PFSH (units (unkno wn) date) unknown) (unknown) (no (unknown) (unknown) PID (acute (units (unk nown) date) pelvic unknown) inflammatory disease) (unknown) (no (unknown) (unknown) PTSD (units (unkno wn) date) (post-traumatic unknown) stress disorder) () (unknown) (no (unknown) (unknown) Patient: (units (unkno wn) date) Sites,[facility] N unknown) MR#: [id number] (unknown) (no (unknown) (unknown) Prostate cancer (units (unknown) date) unknown) (unknown) (no (unknown) (unknown) Provider: (units (unkn own) date) Alondra Johns unknown) ivonne T C.N.MSadia (unknown) (no (unknown) (unknown) Reason for (units (unk nown) date) Evaluation: Yes unknown) rule out labor 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 (unknown) (no (unknown) (unknown) Schizophrenia (units ( unknown) date) unknown) (unknown) (no (unknown) (unknown) See above (units (unkn own) date) unknown) (unknown) (no (unknown) (unknown) Seizures [...] Social History (units (unknown) date) (Reviewed unknown) 11/27/22 @ 20:32 by Chelsy Johns CNM) (unknown) (no (unknown) (unknown) Surgical History (units (unknown) date) (Reviewed unknown) 11/27/22 @ 20:32 by Chelsy Johns CNM) (unknown) (no (unknown) (unknown) Type(s) of (units (unk nown) date) exercise: walking unknown) (unknown) (no (unknown) (unknown) Uterine (units [...] (unknown) date) year weight has: unknown) other ([id number]-14-70 lb) (unknown) (no (unknown) (unknown) education level: (units (unknown) date) high school unknown) (unknown) (no (unknown) (unknown) every 2-7 (units (unkn own) date) minutes. +FM. No unknown) vaginal bleeding or leaking of fluid. (unknown) (no (unknown) (unknown) experiencing (units (u nknown) date) contractions unknown) since last night that have steadily progressed in (unknown) (no (unknown) (unknown) fire (units (unkno wn) date) 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 unknown) home: Yes (unknown) (no (unknown) (unknown) firearms in (units (un known) date) home: Yes unknown) firearms unloaded and locked: Yes (unknown) (no (unknown) (unknown) frequency and (units ( unknown) date) intensity. Now unknown) feeling contractions that are rated at a 6/10 pain (unknown) (no (unknown) (unknown) household (units (unkn [...] (domestic unknown) only) (unknown) (no (unknown) (unknown) vertex (units (unkno wn) date) unknown) (unknown) (no (unknown) (unknown) water heater (units (u nknown) date) temp set < 120 unknown) deg: No (Will call landlord to adjust ) (unknown) (no (unknown) (unknown) well-balanced (units ( unknown) date) diet: daily or unknown) most days (unknown) (no (unknown) (unknown) working smoke (units ( unknown) date) detector in home: unknown) Yes Result panel 2401 (unknown) (no (unknown) (unknown) (no value) (units (unk nown) date) unknown) (unknown) (no (unknown) (unknown) (1) False labor (units (unknown) date) before 37 unknown) completed weeks of gestation: (unknown) (no (unknown) (unknown) (past 8 hours): (units (unknown) date) unknown) (unknown) (no (unknown) (unknown) 11/27/22 2044 (units ( unknown) date) unknown) (unknown) (no (unknown) (unknown) [id number] (units (unkno wn) date) unknown) (unknown) (no (unknown) (unknown) 22YO @ (units (un known) date) [id number] here unknown) for evaluation of contractions. Has been (unknown) (no (unknown) (unknown) ADHD (units [...] date) unknown) (unknown) (no (unknown) (unknown) BP 118/73mmHg, (units (unknown) date) HR 88, RR 16/min, unknown) T 36.6C Temporal (unknown) (no (unknown) (unknown) Baseline (units (unknown) date) heart rate: 130 unknown) (unknown) (no (unknown) (unknown) Bipolar disorder (units (unknown) date) unknown) (unknown) (no (unknown) (unknown) Brother Anxiety (units (unknown) date) unknown) (unknown) (no (unknown) (unknown) CE by RN (units (unkno wn) date) unknown) (unknown) (no (unknown) (unknown) Cancer (units (unkno wn) date) unknown) (unknown) (no (unknown) (unknown) Category of (units (un known) date) Tracing: Reactive unknown) (unknown) (no (unknown) (unknown) Cervical (units (unkno wn) date) dilation (cm): 1 unknown) (unknown) (no (unknown) (unknown) Cervical (units (unkno wn) date) effacement (%): unknown) 50 (unknown) (no (unknown) (unknown) Comments/Additio (units (unknown) date) nal reasons for unknown) admission: (unknown) (no (unknown) (unknown) Comments: (units (unkn own) date) unknown) (unknown) (no (unknown) (unknown) Contraction (units (un known) date) Frequency unknown) (minutes): 3 (unknown) (no (unknown) (unknown) : 2000 (units (unknown) date) Acct:[id number] unknown) (unknown) (no (unknown) (unknown) Date of Service: (units (unknown) date) 11/27/22 unknown) (unknown) (no (unknown) (unknown) Date of (units (unkno wn) date) evaluation: unknown) 11/27/22 (unknown) (no (unknown) (unknown) Depression (units (unk nown) date) unknown) (unknown) (no (unknown) (unknown) Diabetes (units (unkno wn) date) mellitus unknown) (unknown) (no (unknown) (unknown) Diagnosis, (units (unk nown) date) Plan/Disposition unknown) (unknown) (no (unknown) (unknown) Evaluation (units (unk nown) date) unknown) (unknown) (no (unknown) (unknown) Exam (units (unkno wn) date) unknown) (unknown) (no (unknown) (unknown) Family History (units (unknown) date) (Reviewed unknown) 11/27/22 @ 20:32 by Chelsy Johns CNM) (unknown) (no (unknown) (unknown) Father Diabetes (units (unknown) date) mellitus unknown) (unknown) (no (unknown) (unknown) Monitor (units ( unknown) date) Decelerations: unknown) Absent (unknown) (no (unknown) (unknown) monitor (units ( unknown) date) accelerations: unknown) Present (unknown) (no (unknown) (unknown) station: (units (unknown) date) -3 unknown) (unknown) (no (unknown) (unknown) Final Diagnosis (units (unknown) date) unknown) (unknown) (no (unknown) (unknown) Follow-up with (units (unknown) date) primary OB unknown) provider as previously scheduled. Encouraged her to (unknown) (no (unknown) (unknown) GI (units (unkno wn) date) unknown) (unknown) (no (unknown) (unknown) Grandfather [...] nknown) date) unknown) (unknown) (no (unknown) (unknown) [facility] (units (unknown) date) [address] [place] [address] unknown) [place] [address] (unknown) (no (unknown) (unknown) Labor and (units (unkn own) date) Delivery Triage unknown) Note (unknown) (no (unknown) (unknown) Lung cancer (units (un known) date) unknown) (unknown) (no (unknown) (unknown) Medical History (units (unknown) date) (Reviewed unknown) 11/27/22 @ 20:32 by Chelsy Johns CNM) (unknown) (no (unknown) (unknown) Mental health (units ( unknown) date) problem unknown) (unknown) (no (unknown) (unknown) Mother (units (unkno wn) date) Gestational unknown) diabetes (unknown) (no (unknown) (unknown) OB Disposition: (units (unknown) date) home (GBS PCR and unknown) UA pending, will call with results) (unknown) (no (unknown) (unknown) On-call OB (units (unk nown) date) Provider: Chelsy Johns (unknown) (no (unknown) (unknown) Other: (units (unkno wn) date) unknown) (unknown) (no (unknown) (unknown) Ovarian cyst (units (u nknown) date) (-2020) unknown) (unknown) (no (unknown) (unknown) PFSH (units (unkno wn) date) unknown) (unknown) (no (unknown) (unknown) PID (acute (units (unk nown) date) pelvic unknown) inflammatory disease) (unknown) (no (unknown) (unknown) PTSD (units (unkno wn) date) (post-traumatic unknown) stress disorder) () (unknown) (no (unknown) (unknown) Patient: (units (unkno wn) date) Sites,[facility] unknown) MR#: [id number] (unknown) (no (unknown) (unknown) Plan/Disposition (units (unknown) date) unknown) (unknown) (no (unknown) (unknown) Problem details: (units (unknown) date) unknown) (unknown) (no (unknown) (unknown) Prostate cancer (units (unknown) date) unknown) (unknown) (no (unknown) (unknown) Provider: (units (unkn own) date) Alondra Johns unknown) ivonne Lo.N.MSadia (unknown) (no (unknown) (unknown) Reason for (units (unk nown) date) Evaluation: Yes unknown) rule out labor 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 (unknown) (no (unknown) (unknown) Schizophrenia (units ( unknown) date) unknown) (unknown) (no (unknown) (unknown) See above (units (unkn own) date) unknown) (unknown) (no (unknown) (unknown) Seizures (-2003) (units (unknown) date) unknown) (unknown) (no (unknown) (unknown) Signed (units (unkno wn) date) By:<Electronicall unknown) y signed by Chelsy Johns C.N.MSadia> (unknown) (no (unknown) (unknown) Sister Anxiety (units (unknown) date) unknown) (unknown) (no (unknown) (unknown) Sister (units (unkno wn) date) Depression unknown) (unknown) (no (unknown) (unknown) Smoking Status: (units (unknown) date) Former smoker unknown) (former vape use, quit) (unknown) (no (unknown) (unknown) Social History (units (unknown) date) (Reviewed unknown) 11/27/22 @ 20:32 by Chelsy Johns CNM) (unknown) (no (unknown) (unknown) Status: Acute (units ( unknown) date) unknown) (unknown) (no (unknown) (unknown) Surgical History (units (unknown) date) (Reviewed unknown) 11/27/22 @ 20:32 by Chelsy Johns CNM) (unknown) (no (unknown) (unknown) Type(s) of (units (unk nown) date) exercise: walking unknown) (unknown) (no (unknown) (unknown) Uterine (units [...] of 200mg limit) (unknown) (no (unknown) (unknown) call and return (units (unknown) date) if contractions unknown) intensity. (unknown) (no (unknown) (unknown) carbon monox (units [...] (unknown) date) year weight has: unknown) other (nnxyoaqewx-04-08 lb) (unknown) (no (unknown) (unknown) education level: (units (unknown) date) high school unknown) (unknown) (no (unknown) (unknown) every 2-7 (units (unkn own) date) minutes. +FM. No unknown) vaginal bleeding or leaking of fluid. (unknown) (no (unknown) (unknown) experiencing (units (u nknown) date) contractions unknown) since last night that have steadily progressed in (unknown) (no (unknown) (unknown) fire (units (unkno wn) date) 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 unknown) home: Yes (unknown) (no (unknown) (unknown) firearms in (units (un known) date) home: Yes unknown) firearms unloaded and locked: Yes (unknown) (no (unknown) (unknown) frequency and (units ( unknown) date) intensity. Now unknown) feeling contractions that are rated at a 6/10 pain (unknown) (no (unknown) (unknown) household (units (unkn [...] (domestic unknown) only) (unknown) (no (unknown) (unknown) vertex (units (unkno wn) date) unknown) (unknown) (no (unknown) (unknown) water heater (units (u nknown) date) temp set < 120 unknown) deg: No (Will call landlord to adjust ) (unknown) (no (unknown) (unknown) well-balanced (units ( unknown) date) diet: daily or unknown) most days (unknown) (no (unknown) (unknown) working smoke (units ( unknown) date) detector in home: unknown) Yes Result panel 2402 (unknown) (no date) (unknown) (unknown) No growth. (units (un known) unknown) Result panel 2403 (unknown) (no date) (unknown) (unknown) (no value) (units (un known) unknown) (unknown) (no date) (unknown) (unknown) Mixed gram + (units ( unknown) osiel. Deemed unknown) unsuitable for further studies. Result panel 2404 (unknown) (no (unknown) (unknown) (no value) (units (unk nown) date) unknown) (unknown) (no (unknown) (unknown) (+14 lb) 98/66 N (units (unknown) date) unknown) (unknown) (no (unknown) (unknown) (+15 lb) 98/62 N (units (unknown) date) unknown) (unknown) (no (unknown) (unknown) (+21 lb) 112/64 (units (unknown) date) N unknown) (unknown) (no (unknown) (unknown) (+21 lb) [...] wn) date) unknown) (unknown) (no (unknown) (unknown) 11/17/22 (units (unkno wn) date) unknown) (unknown) (no (unknown) (unknown) 12/01/22 (units (unkno wn) date) unknown) (unknown) (no (unknown) (unknown) 12/01/22] (units (unkn own) date) unknown) (unknown) (no (unknown) (unknown) [id number] (units (unkno wn) date) unknown) (unknown) (no (unknown) (unknown) 01/26/22 5 (units (unk nown) date) spontaneous unknown) (unknown) (no (unknown) (unknown) 06/09/22 (units (unkno wn) date) unknown) (unknown) (no (unknown) (unknown) 06/29/20 5 (units (unk nown) date) spontaneous unknown) (unknown) (no (unknown) (unknown) 07/07/22 (units (unkno wn) date) unknown) (unknown) (no (unknown) (unknown) 11w 5d 123 lb (units ( unknown) date) unknown) (unknown) (no (unknown) (unknown) 08/11/22 (units (unkno wn) date) unknown) (unknown) (no (unknown) (unknown) 14:34 (units (unkno wn) date) unknown) (unknown) (no (unknown) (unknown) 15w 5d 121 lb (units ( unknown) date) unknown) (unknown) (no (unknown) (unknown) 21 yo here (units (unknown) date) for IOB visit unknown) @11wk5d. An 8 week US was c/w LMP-TIFFANIE. H/o (unknown) (no (unknown) (unknown) 2 days ago on (units ( unknown) date) Labor and unknown) delivery for home elevated blood pressure and headache. (unknown) (no (unknown) (unknown) 2 wks (units [...] unknown) date) unknown) (unknown) (no (unknown) (unknown) 34w 5d 146 lb (units ( unknown) date) [...] own) date) unknown) (unknown) (no (unknown) (unknown) [place] (units ( unknown) date) [address] unknown) (unknown) (no (unknown) (unknown) Anemia (-2020) (units (unknown) date) unknown) (unknown) (no (unknown) (unknown) Anesthesia (units (unk nown) date) unknown) (unknown) (no (unknown) (unknown) Aneuploidy (units (unk nown) date) Screening unknown) Offered: Accepted (undecided, will probably get quad (unknown) (no (unknown) (unknown) Anticipate , (units (unknown) date) [facility] unknown) (unknown) (no (unknown) (unknown) Anticipated (units [...] History of severe (unknown) (no (unknown) (unknown) Bipolar disorder (units [...] (unknown) (unknown) Confirmed (units (unkn own) date) 12/01/22] unknown) (unknown) (no (unknown) (unknown) [place] ED. (units (unknown) date) 20 week US normal unknown) (unknown) (no (unknown) (unknown) Current Estimate (units (unknown) date) 12/24/22 LMP unknown) (Certain) 36w 5d (unknown) (no (unknown) (unknown) Current (units (unkno wn) date) History unknown) (unknown) (no (unknown) (unknown) : 2000 (units (unknown) date) Acct:[id number] unknown) (unknown) (no (unknown) (unknown) Date of [...] date) . unknown) (unknown) (no (unknown) (unknown) Saima and (units (un known) date) Constantine returns unknown) today for her FRED visit now 30+ 4 weeks (unknown) (no (unknown) (unknown) Saima is here (units (unknown) date) for a FRED visit @ unknown) 15wk5d. She is accompanied by her (unknown) (no (unknown) (unknown) Saima presents (units (unknown) date) for an are OB unknown) visit at 20 weeks 5 days. Constantine, (unknown) (no (unknown) (unknown) Saima returns (units (unknown) date) today for her [...] By: (units (unknown) date) Chaka Flores unknown) 12/01/22 1432 (unknown) (no (unknown) (unknown) Draft (units (unkno [...] Family History (units (unknown) date) (Reviewed unknown) 11/27/22 @ 20:32 by Chelsy Johns CNM) (unknown) (no (unknown) (unknown) Father Diabetes (units [...] Medical History (units (unknown) date) (Reviewed unknown) 11/27/22 @ 20:32 by Chelsy Johns CNM) (unknown) (no (unknown) (unknown) Medications (units (un [...] absent 4wk unknown) (unknown) (no (unknown) (unknown) NF (units (unkno wn) date) unknown) (unknown) (no (unknown) (unknown) No Known Drug (units ( unknown) date) Allergies Allergy unknown) (Verified 12/01/22 14:33) (unknown) (no (unknown) (unknown) Notes (units (unkno [...] (units (unknown) date) 12/22/22 unknown) Ultrasound #1 37w 0d (unknown) (no (unknown) (unknown) Ovarian cyst (units (u nknown) date) () unknown) (unknown) (no (unknown) (unknown) PFSH (units (unkno wn) date) unknown) (unknown) (no (unknown) (unknown) PID (acute (units (unk nown) date) pelvic unknown) inflammatory disease) (unknown) (no (unknown) (unknown) PTSD (units (unkno wn) date) (post-traumatic unknown) stress disorder) (-2019) (unknown) (no (unknown) (unknown) Para 0 (units [...] date) unknown) (unknown) (no (unknown) (unknown) Patient comes in (units (unknown) date) at 34 weeks 5 unknown) days with no complaints. She was evaluated (unknown) (no (unknown) (unknown) Patient was (units (un known) date) previously unknown) scheduled for iron infusions but this has not been (unknown) (no (unknown) (unknown) Patient's age 37 (units (unknown) date) years or older as unknown) of estimated date of delivery: No (unknown) (no (unknown) (unknown) Patient: (units (unkno wn) date) Sites,[facility] unknown) MR#: [id number] (unknown) (no (unknown) (unknown) Mandarin Tutor: (units ( unknown) date) CHAR Garg unknown) [...] Ob (units (unk nown) date) Provider: unknown) Chaka Flores (unknown) (no (unknown) (unknown) Prior (units (unkno [...] (unknown) Recurrent UTI (units ( unknown) date) (-2020) unknown) (unknown) (no (unknown) (unknown) Recurrent (units [...] (unknown) date) unknown) (unknown) (no (unknown) (unknown) She had normal (units (unknown) date) PIH labs. She unknown) denies any headache currently. Baby is moving (unknown) (no (unknown) (unknown) Signed By: (units [...] Surgical History (units (unknown) date) (Reviewed unknown) 11/27/22 @ 20:32 by Chelsy Johns CNM) (unknown) (no (unknown) (unknown) Surrogate (units (unkn [...] (unknown) (no (unknown) (unknown) TR Yes no 128 34 (units (unknown) date) Uncertain absent unknown) 2wk (unknown) (no (unknown) (unknown) TR Yes no [...] (unknown) Visit Date: (units (un known) date) 11/17/22 Last unknown) Updated by: Rebecca Lilly MD (unknown) (no (unknown) (unknown) Visit Date: [...] (unknown) Visit Reasons: (units (unknown) date) OB Ck unknown) (unknown) (no (unknown) (unknown) Vitals (units (unkno wn) date) unknown) (unknown) (no (unknown) (unknown) Vitamins and (units (u nknown) date) iron, Diet and unknown) weight gain, Fish and mercury intake, Smoking, (unknown) (no (unknown) (unknown) WG (units (unkno wn) date) unknown) (unknown) (no (unknown) (unknown) Weeks (units (unkno wn) date) gestation:: 36 unknown) (unknown) (no (unknown) (unknown) Zika virus [...] (unknown) (no (unknown) (unknown) done at [facility] (units (unknown) date) health showed unknown) normal anatomy, placenta and normal cervical (unknown) (no (unknown) (unknown) duration: 15-30 (units (unknown) date) minutes/day unknown) (unknown) (no (unknown) (unknown) during the past (units (unknown) date) year weight has: unknown) other (qbdilzzyhn-74-65 lb) (unknown) (no (unknown) (unknown) education level: [...] mg PO unknown) DAILY 04/27/22 [History Confirmed 12/01/22] (unknown) (no (unknown) (unknown) gestational age. (units (unknown) date) She is had 2 more unknown) visits to the center regarding (unknown) (no (unknown) (unknown) grandfather (units (un known) date) today who came unknown) from [place] to stay with her through (unknown) (no [...] apartment unknown) (unknown) (no (unknown) (unknown) in 2 weeks. (units (un known) date) Routine unknown) precautions reviewed with the patient. (unknown) (no (unknown) (unknown) in a few weeks. (units (unknown) date) Advised her to unknown) continue with pelvic rest for now . She reports (unknown) (no (unknown) (unknown) in the area. (units (u nknown) date) Discussed trying unknown) to establish with care in [place] (unknown) (no (unknown) (unknown) irritability was (units [...] stopped unknown) now. Seen in ED in [place] yesterday, (unknown) (no (unknown) (unknown) lives (units [...] (no (unknown) (unknown) prenat.vits,jack, (units (unknown) date) [id number] 1 unknown) tab PO DAILY 04/27/22 [History [...] unknown) effort is made to edit content, dental specialist errors (unknown) (no (unknown) (unknown) special mirella [...] (units ( unknown) date) [Rx Confirmed unknown) 12/01/22] (unknown) (no (unknown) (unknown) takes the 10 [...] with unknown) persistent bad cramping when in [place] and I (unknown) (no (unknown) (unknown) weeks [...] unknown) most days (unknown) (no (unknown) (unknown) well. No vaginal (units (unknown) date) bleeding. No unknown) contractions. Good movement. Follow-up (unknown) (no (unknown) (unknown) will be drawn [...] detector in home: unknown) Yes Result panel [id number] (unknown) (no (unknown) (unknown) (no value) (units (unk nown) date) unknown) (unknown) (no (unknown) (unknown) (+14 lb) 98/66 N (units (unknown) date) unknown) (unknown) (no (unknown) (unknown) (+15 lb) 98/62 N (units (unknown) date) unknown) (unknown) (no (unknown) (unknown) (+21 lb) 112/64 (units (unknown) date) N unknown) (unknown) (no (unknown) (unknown) (+21 lb) [...] wn) date) unknown) (unknown) (no (unknown) (unknown) 11/17/22 (units (unkno wn) date) unknown) (unknown) (no (unknown) (unknown) 12/01/22 (units (unkno wn) date) unknown) (unknown) (no (unknown) (unknown) 12/01/22] (units (unkn own) date) unknown) (unknown) (no (unknown) (unknown) [id number] (units (unkno wn) date) unknown) (unknown) (no (unknown) (unknown) 01/26/22 5 (units (unk nown) date) spontaneous unknown) (unknown) (no (unknown) (unknown) 06/09/22 (units (unkno wn) date) unknown) (unknown) (no (unknown) (unknown) 06/29/20 5 (units (unk nown) date) spontaneous unknown) (unknown) (no (unknown) (unknown) 07/07/22 (units (unkno wn) date) unknown) (unknown) (no (unknown) (unknown) 11w 5d 123 lb (units ( unknown) date) unknown) (unknown) (no (unknown) (unknown) 08/11/22 (units (unkno wn) date) unknown) (unknown) (no (unknown) (unknown) 14:34 (units (unkno wn) date) unknown) (unknown) (no (unknown) (unknown) 15w 5d 121 lb (units ( unknown) date) unknown) (unknown) (no (unknown) (unknown) 21 yo here (units (unknown) date) for IOB visit unknown) @11wk5d. An 8 week US was c/w LMP-TIFFANIE. H/o (unknown) (no (unknown) (unknown) 2 days ago on (units ( unknown) date) Labor and unknown) delivery for home elevated blood pressure and headache. (unknown) (no (unknown) (unknown) 2 wks (units [...] unknown) date) unknown) (unknown) (no (unknown) (unknown) 34w 5d 146 lb (units ( unknown) date) [...] own) date) unknown) (unknown) (no (unknown) (unknown) [place], [place] (units ( unknown) date) [id number] unknown) (unknown) (no (unknown) (unknown) Anemia (-2020) (units (unknown) date) unknown) (unknown) (no (unknown) (unknown) Anesthesia (units (unk nown) date) unknown) (unknown) (no (unknown) (unknown) Aneuploidy (units (unk nown) date) Screening unknown) Offered: Accepted (undecided, will probably get quad (unknown) (no (unknown) (unknown) Anticipate , (units (unknown) date) [facility] unknown) (unknown) (no (unknown) (unknown) Anticipated (units [...] (units (unknown) date) options she unknown) desires Jing, Rx sent. History of severe (unknown) (no (unknown) (unknown) BMI 26.7 (units (unkno wn) date) unknown) (unknown) (no (unknown) (unknown) BP 92/54 L (units (unk nown) date) unknown) (unknown) (no (unknown) (unknown) Bipolar disorder (units (unknown) date) unknown) (unknown) (no (unknown) (unknown) (units (unkno wn) date) Plan/Preferences unknown) (unknown) (no (unknown) (unknown) Planning (units (unknown) date) unknown) (unknown) (no (unknown) (unknown) Blood Pressure (units (unknown) date) Location Lt unknown) brachial (unknown) (no (unknown) (unknown) Blood [...] (unknown) (unknown) Confirmed (units (unkn own) date) 12/01/22] unknown) (unknown) (no (unknown) (unknown) [place] ED. (units (unknown) date) 20 week US normal unknown) (unknown) (no (unknown) (unknown) Current Estimate (units (unknown) date) 12/24/22 LMP unknown) (Certain) 36w 5d (unknown) (no (unknown) (unknown) Current (units (unkno wn) date) History unknown) (unknown) (no (unknown) (unknown) : 2000 (units (unknown) date) Acct:[id number] unknown) (unknown) (no (unknown) (unknown) Date of [...] date) . unknown) (unknown) (no (unknown) (unknown) Saima and (units (un known) date) Constantine returns unknown) today for her FRED visit now 30+ 4 weeks (unknown) (no (unknown) (unknown) Saima is here (units (unknown) date) for a FRED visit @ unknown) 15wk5d. She is accompanied by her (unknown) (no (unknown) (unknown) Saima presents (units (unknown) date) for an are OB unknown) visit at 20 weeks 5 days. Constantine, (unknown) (no (unknown) (unknown) Saima returns (units (unknown) date) today for her [...] By: (units (unknown) date) Chaka Flores unknown) 12/01/22 1432 (unknown) (no (unknown) (unknown) Draft (units (unkno [...] Family History (units (unknown) date) (Reviewed unknown) 11/27/22 @ 20:32 by Chelsy Johns CNM) (unknown) (no (unknown) (unknown) Father Diabetes (units [...] Medical History (units (unknown) date) (Reviewed unknown) 11/27/22 @ 20:32 by Chelsy Johns CNM) (unknown) (no (unknown) (unknown) Medications (units (un [...] absent 4wk unknown) (unknown) (no (unknown) (unknown) NF (units (unkno wn) date) unknown) (unknown) (no (unknown) (unknown) No Known Drug (units ( unknown) date) Allergies Allergy unknown) (Verified 12/01/22 14:33) (unknown) (no (unknown) (unknown) Notes (units (unkno [...] (units (unknown) date) 12/22/22 unknown) Ultrasound #1 37w 0d (unknown) (no (unknown) (unknown) Ovarian cyst [...] date) unknown) (unknown) (no (unknown) (unknown) Patient comes in (units (unknown) date) at 34 weeks 5 unknown) days with no complaints. She was evaluated (unknown) (no (unknown) (unknown) Patient was (units (un known) date) previously unknown) scheduled for iron infusions but this has not been (unknown) (no (unknown) (unknown) Patient's age 37 (units (unknown) date) years or older as unknown) of estimated date of delivery: No (unknown) (no (unknown) (unknown) Patient: (units (unkno wn) date) [facility] N unknown) MR#: [id number] (unknown) (no (unknown) (unknown) Mandarin Tutor: (units ( unknown) date) CHAR Haswell unknown) (unknown) (no (unknown) (unknown) Personal history [...] (u nknown) date) Provider: CHAR Puentes unknown) [place] (unknown) (no (unknown) (unknown) Primary Ob (units (unk nown) date) Provider: unknown) Chaka Flores (unknown) (no (unknown) (unknown) Prior (units (unkno [...] (unknown) date) unknown) (unknown) (no (unknown) (unknown) She had normal (units (unknown) date) PIH labs. She unknown) denies any headache currently. Baby is moving (unknown) (no (unknown) (unknown) Signed By: (units [...] Surgical History (units (unknown) date) (Reviewed unknown) 11/27/22 @ 20:32 by Chelsy Johns CNM) (unknown) (no (unknown) (unknown) Surrogate (units (unkn [...] (unknown) (no (unknown) (unknown) TR Yes no 128 34 (units (unknown) date) Uncertain absent unknown) 2wk (unknown) (no (unknown) (unknown) TR Yes no [...] (unknown) Visit Date: (units (un known) date) 11/17/22 Last unknown) Updated by: Rebecca Lilly MD (unknown) (no (unknown) (unknown) Visit Date: [...] (unknown) Visit Reasons: (units (unknown) date) OB Ck unknown) (unknown) (no (unknown) (unknown) Vitals (units (unkno wn) date) unknown) (unknown) (no (unknown) (unknown) Vitamins and (units (u nknown) date) iron, Diet and unknown) weight gain, Fish and mercury intake, Smoking, (unknown) (no (unknown) (unknown) WG (units (unkno wn) date) unknown) (unknown) (no (unknown) (unknown) Weeks (units (unkno wn) date) gestation:: 36 unknown) (unknown) (no (unknown) (unknown) Weight 151 lb (units ( unknown) date) unknown) (unknown) [...] (unknown) deployed in (units (un known) date) [employer] was on unknown) video chat for the [...] (unknown) (no (unknown) (unknown) done at [facility] (units (unknown) date) health showed unknown) normal anatomy, placenta and normal cervical (unknown) (no (unknown) (unknown) duration: 15-30 (units (unknown) date) minutes/day unknown) (unknown) (no (unknown) (unknown) during the past (units (unknown) date) year weight has: unknown) other (uzqpiehdtx-06-11 lb) (unknown) (no (unknown) (unknown) education level: [...] mg PO unknown) DAILY 04/27/22 [History Confirmed 12/01/22] (unknown) (no (unknown) (unknown) gestational age. (units (unknown) date) She is had 2 more unknown) visits to the center regarding (unknown) (no (unknown) (unknown) grandfather (units (un known) date) today who came unknown) from [place] to stay with her through (unknown) (no [...] apartment unknown) (unknown) (no (unknown) (unknown) in 2 weeks. (units (un known) date) Routine unknown) precautions reviewed with the patient. (unknown) (no (unknown) (unknown) in a few weeks. (units (unknown) date) Advised her to unknown) continue with pelvic rest for now . She reports (unknown) (no (unknown) (unknown) in the area. (units (u nknown) date) Discussed trying unknown) to establish with care in [place] (unknown) (no (unknown) (unknown) irritability was (units [...] stopped unknown) now. Seen in ED in [place] yesterday, (unknown) (no (unknown) (unknown) lives (units [...] (no (unknown) (unknown) prenat.vits,jack, (units (unknown) date) [id number] 1 unknown) tab PO DAILY 04/27/22 [History [...] unknown) effort is made to edit content, dental specialist errors (unknown) (no (unknown) (unknown) special mirella [...] (units ( unknown) date) [Rx Confirmed unknown) 12/01/22] (unknown) (no (unknown) (unknown) takes the 10 [...] with unknown) persistent bad cramping when in [place] and I (unknown) (no (unknown) (unknown) weeks [...] unknown) most days (unknown) (no (unknown) (unknown) well. No vaginal (units (unknown) date) bleeding. No unknown) contractions. Good movement. Follow-up (unknown) (no (unknown) (unknown) will be drawn [...] detector in home: unknown) Yes Result panel [id number] (unknown) (no (unknown) (unknown) (no value) (units (unk nown) date) unknown) (unknown) (no (unknown) (unknown) (+14 lb) 98/66 N (units (unknown) date) unknown) (unknown) (no (unknown) (unknown) (+15 lb) 98/62 N (units (unknown) date) unknown) (unknown) (no (unknown) (unknown) (+21 lb) 112/64 (units (unknown) date) N unknown) (unknown) (no (unknown) (unknown) (+21 lb) 92/68 N (units (unknown) date) unknown) (unknown) (no (unknown) (unknown) (+26 lb) 92/54 N (units (unknown) date) unknown) (unknown) (no [...] wn) date) unknown) (unknown) (no (unknown) (unknown) 11/17/22 (units (unkno wn) date) unknown) (unknown) (no (unknown) (unknown) 12/01/22 1514 (units ( unknown) date) unknown) (unknown) (no (unknown) (unknown) 12/01/22 (units (unkno wn) date) unknown) (unknown) (no (unknown) (unknown) 12/01/22] (units (unkn own) date) unknown) (unknown) (no (unknown) (unknown) [id number] (units (unkno wn) date) unknown) (unknown) (no (unknown) (unknown) 01/26/22 5 (units (unk nown) date) spontaneous unknown) (unknown) (no (unknown) (unknown) 06/09/22 (units (unkno wn) date) unknown) (unknown) (no (unknown) (unknown) 06/29/20 5 (units (unk nown) date) spontaneous unknown) (unknown) (no (unknown) (unknown) 07/07/22 (units (unkno wn) date) unknown) (unknown) (no (unknown) (unknown) 11w 5d 123 lb (units ( unknown) date) unknown) (unknown) (no (unknown) (unknown) 08/11/22 (units (unkno wn) date) unknown) (unknown) (no (unknown) (unknown) 14:34 (units (unkno wn) date) unknown) (unknown) (no (unknown) (unknown) 15w 5d 121 lb (units ( unknown) date) unknown) (unknown) (no (unknown) (unknown) 21 yo here (units (unknown) date) for IOB visit unknown) @11wk5d. An 8 week US was c/w LMP-TIFFANIE. H/o (unknown) (no (unknown) (unknown) 2 days ago on (units ( unknown) date) Labor and unknown) delivery for home elevated blood pressure and headache. (unknown) (no (unknown) (unknown) 2 wks (units [...] unknown) date) unknown) (unknown) (no (unknown) (unknown) 34w 5d 146 lb (units ( unknown) date) unknown) (unknown) (no (unknown) (unknown) 36w 5d 151 lb (units ( unknown) date) unknown) (unknown) [...] own) date) unknown) (unknown) (no (unknown) (unknown) [place], [place] (units ( unknown) date) [id number] unknown) (unknown) (no (unknown) (unknown) Anemia (-2020) (units (unknown) date) unknown) (unknown) (no (unknown) (unknown) Anesthesia (units (unk nown) date) unknown) (unknown) (no (unknown) (unknown) Aneuploidy (units (unk nown) date) Screening unknown) Offered: Accepted (undecided, will probably get quad (unknown) (no (unknown) (unknown) Anticipate , (units (unknown) date) [facility] unknown) (unknown) (no (unknown) (unknown) Anticipated (units [...] of severe (unknown) (no (unknown) (unknown) BMI 26.7 (units (unkno wn) date) unknown) (unknown) (no (unknown) (unknown) BP 92/54 L (units (unk nown) date) unknown) (unknown) (no (unknown) (unknown) Bipolar disorder (units (unknown) date) unknown) (unknown) (no (unknown) (unknown) (units (unkno wn) date) Plan/Preferences unknown) (unknown) (no (unknown) (unknown) Planning (units (unknown) date) unknown) (unknown) (no (unknown) (unknown) Blood Pressure (units (unknown) date) Location Lt unknown) brachial (unknown) (no (unknown) (unknown) Blood [...] (unknown) (unknown) Confirmed (units (unkn own) date) 12/01/22] unknown) (unknown) (no (unknown) (unknown) [place] ED. (units (unknown) date) 20 week US normal unknown) (unknown) (no (unknown) (unknown) Current Estimate (units (unknown) date) 12/24/22 LMP unknown) (Certain) 36w 5d (unknown) (no (unknown) (unknown) Current (units (unkno wn) date) History unknown) (unknown) (no (unknown) (unknown) : 2000 (units (unknown) date) Acct:[id number] unknown) (unknown) (no (unknown) (unknown) Date of [...] date) . unknown) (unknown) (no (unknown) (unknown) Saima and (units (un known) date) Constantine returns unknown) today for her FRED visit now 30+ 4 weeks (unknown) (no (unknown) (unknown) Saima is here (units (unknown) date) for a FRED visit @ unknown) 15wk5d. She is accompanied by her (unknown) (no (unknown) (unknown) Saima presents (units (unknown) date) for an are OB unknown) visit at 20 weeks 5 days. Constantine, (unknown) (no (unknown) (unknown) Saima returns (units (unknown) date) today for her FRED unknown) visit now at 27+ 4 weeks gestational (unknown) (no (unknown) (unknown) Saima returns (units (unknown) date) today for her FRED unknown) visit now at 36+ 5 weeks gestational (unknown) (no (unknown) (unknown) Jen is now (units (unknown) date) 30 2+5 weeks' unknown) gestation. She has a total flat affect (unknown) (no (unknown) (unknown) Diabetes (units (unkno wn) date) mellitus unknown) (unknown) (no (unknown) (unknown) Diet and (units (unkno wn) date) Exercise unknown) (unknown) (no (unknown) (unknown) Documented By: (units (unknown) date) Chaka Flores unknownBlanca BEE 12/01/22 1432 (unknown) (no (unknown) (unknown) TIFFANIE Calculator (units (unknown) date) unknown) (unknown) (no (unknown) (unknown) EGA Weight BP (units ( unknown) date) UGlucose unknown) (unknown) (no (unknown) (unknown) Estimated (units (unkn own) date) Delivery Date unknown) Method Current (unknown) (no (unknown) (unknown) Expected (units (unkno wn) date) Delivery unknown) Route/Plan (unknown) (no (unknown) (unknown) Family History (units (unknown) date) (Reviewed unknown) 11/27/22 @ 20:32 by Chelsy Johns CNM) (unknown) (no (unknown) (unknown) Father Diabetes (units [...] Medical History (units (unknown) date) (Reviewed unknown) 11/27/22 @ 20:32 by Chelsy Johns CNM) (unknown) (no (unknown) (unknown) Medications (units (un [...] (unknown) (no (unknown) (unknown) N Yes no 140 36 (units (unknown) date) Vertex absent unknown) 75%/CL/-2 GB (unknown) (no (unknown) (unknown) N Yes no 144 20 (units (unknown) date) absent 4wk unknown) (unknown) (no (unknown) (unknown) NF (units (unkno wn) date) unknown) (unknown) (no (unknown) (unknown) No Known Drug (units ( unknown) date) Allergies Allergy unknown) (Verified 12/01/22 14:33) (unknown) (no (unknown) (unknown) Notes (units (unkno [...] (units (unknown) date) 12/22/22 unknown) Ultrasound #1 37w 0d (unknown) (no (unknown) (unknown) Ovarian cyst [...] date) unknown) (unknown) (no (unknown) (unknown) Patient comes in (units (unknown) date) at 34 weeks 5 unknown) days with no complaints. She was evaluated (unknown) (no (unknown) (unknown) Patient was (units (un known) date) previously unknown) scheduled for iron infusions but this has not been (unknown) (no (unknown) (unknown) Patient's age 37 (units (unknown) date) years or older as unknown) of estimated date of delivery: No (unknown) (no (unknown) (unknown) Patient: (units (unkno wn) date) Blane,Saima N unknown) MR#: [id number] (unknown) (no (unknown) (unknown) Mandarin Tutor: (units ( unknown) date) CHAR Garg unknown) [...] (units (u nknown) date) Provider: CHAR Puentes unknownBlanca Garg (unknown) (no (unknown) (unknown) Primary Ob (units (unk nown) date) Provider: unknown) Chaka Flores (unknown) (no (unknown) (unknown) Prior (units (unkno [...] RhoGAM as needed. (unknown) (no (unknown) (unknown) S POSITIVE 1 wk (units (unknown) date) unknown) (unknown) (no (unknown) (unknown) Sabs x4 @5-6 (units (u nknown) date) weeks. She passed unknown) a small clot a week ago, then had BRB yesterday (unknown) (no (unknown) (unknown) Safety (units (unkno wn) date) unknown) (unknown) (no (unknown) (unknown) Schizophrenia (units ( unknown) date) unknown) (unknown) (no (unknown) (unknown) Seizures (-2003) (units (unknown) date) unknown) (unknown) (no (unknown) (unknown) She had normal (units (unknown) date) PIH labs. She unknown) denies any headache currently. Baby is moving (unknown) (no (unknown) (unknown) Signed By: (units [...] Surgical History (units (unknown) date) (Reviewed unknown) 11/27/22 @ 20:32 by Chelsy Johns CNM) (unknown) (no (unknown) (unknown) Surrogate (units (unkn [...] (unknown) (no (unknown) (unknown) TR Yes no 128 34 (units (unknown) date) Uncertain absent unknown) 2wk (unknown) (no (unknown) (unknown) TR Yes no [...] (unknown) Visit Date: (units (un known) date) 11/17/22 Last unknown) Updated by: Rebecca Lilly MD (unknown) (no (unknown) (unknown) Visit Date: (units (un known) date) 12/01/22 Last unknown) Updated by: Chaka Flores MD [...] (unknown) Visit Reasons: (units (unknown) date) OB Ck unknown) (unknown) (no (unknown) (unknown) Vitals (units (unkno wn) date) unknown) (unknown) (no (unknown) (unknown) Vitamins and (units (u nknown) date) iron, Diet and unknown) weight gain, Fish and mercury intake, Smoking, (unknown) (no (unknown) (unknown) WG (units (unkno wn) date) unknown) (unknown) (no (unknown) (unknown) Weeks (units (unkno wn) date) gestation:: 36 unknown) (unknown) (no (unknown) (unknown) Weeks of (units (unkno wn) date) gestation: 36 unknown) weeks Qualified Code(s): Z3A.36 - 36 weeks (unknown) (no (unknown) (unknown) Weight 151 lb (units ( unknown) date) unknown) (unknown) [...] as needed. (unknown) (no (unknown) (unknown) age. GBS is (units (un known) date) reported as unknown) positive. Patient is aware. She is had several (unknown) (no (unknown) (unknown) age. She was [...] that with her (unknown) (no (unknown) (unknown) ay occur. (units (unkn own) date) Occasional unknown) wrong-word or 'sound-alike' substitutions may have (unknown) (no (unknown) (unknown) bleeding in 1st (units (unknown) date) trimester, unknown) resolved. Reported retroplacental bleed on US @ (unknown) (no (unknown) (unknown) bleeding, (units (unkn own) date) leakage of fluid unknown) per vagina, or change in discharge. Labor (unknown) (no (unknown) (unknown) blood, abnormal (units [...] (unknown) deployed in (units (un known) date) [employer] was on unknown) video chat for the [...] (unknown) (no (unknown) (unknown) done at [facility] (units (unknown) date) health showed unknown) normal anatomy, placenta and normal cervical (unknown) (no (unknown) (unknown) duration: 15-30 (units (unknown) date) minutes/day unknown) (unknown) (no (unknown) (unknown) during the past (units (unknown) date) year weight has: unknown) other (sftrwmcliq-90-85 lb) (unknown) (no (unknown) (unknown) education level: (units (unknown) date) high school unknown) (unknown) (no (unknown) (unknown) effaced/closed/- (units (unknown) date) 2/posterior/soft unknown) (BS=5). Her baby remains active but she denies (unknown) (no (unknown) (unknown) episodes of (units (un known) date) false labor and unknown) presented for evaluation to the center but (unknown) (no (unknown) (unknown) episodes where (units [...] mg PO unknown) DAILY 04/27/22 [History Confirmed 12/01/22] (unknown) (no (unknown) (unknown) gestation of (units (u nknown) date) unknown) (unknown) (no (unknown) (unknown) gestational age. (units (unknown) date) She is had 2 more unknown) visits to the center regarding (unknown) (no (unknown) (unknown) grandfather (units (un known) date) today who came unknown) from [place] to stay with her through (unknown) (no [...] apartment unknown) (unknown) (no (unknown) (unknown) in 2 weeks. (units (un known) date) Routine unknown) precautions reviewed with the patient. (unknown) (no (unknown) (unknown) in a few weeks. (units (unknown) date) Advised her to unknown) continue with pelvic rest for now . She reports (unknown) (no (unknown) (unknown) in the area. (units (u nknown) date) Discussed trying unknown) to establish with care in [place] (unknown) (no (unknown) (unknown) irritability was (units [...] stopped unknown) now. Seen in ED in [place] yesterday, (unknown) (no (unknown) (unknown) lives (units [...] be detected on (unknown) (no (unknown) (unknown) precautions (units (un known) date) reviewed and unknown) follow-up will be in 1 week or as needed. (unknown) (no (unknown) (unknown) precautions, (units (u nknown) date) Listeriosis unknown) prevention and Rubella Immunization (unknown) (no (unknown) (unknown) will (units (unknown) date) still proceed unknown) normally, with retroplacental blood resolving Will (unknown) (no (unknown) (unknown) . Her (units (unknown) date) baby remains unknown) active but she denies contractions, bleeding, or (unknown) (no (unknown) (unknown) prenat.vits,jack, (units (unknown) date) [id number]-ilkx-wfvas 1 unknown) tab PO DAILY 04/27/22 [History [...] unknown) effort is made to edit content, dental specialist errors m (unknown) (no (unknown) (unknown) special [...] (units ( unknown) date) [Rx Confirmed unknown) 12/01/22] (unknown) (no (unknown) (unknown) takes the 10 [...] times a week (unknown) (no (unknown) (unknown) those cervical (units (unknown) date) dilation has been unknown) noted. Today's exam shows the cervix to be 75% (unknown) (no (unknown) (unknown) though before (units [...] with unknown) persistent bad cramping when in [place] and I (unknown) (no (unknown) (unknown) weeks [...] unknown) most days (unknown) (no (unknown) (unknown) well. No vaginal (units (unknown) date) bleeding. No unknown) contractions. Good movement. Follow-up (unknown) (no (unknown) (unknown) will be drawn [...] detector in home: unknown) Yes Result panel [id number] (unknown) (no (unknown) (unknown) (no value) (units (unk nown) date) unknown) (unknown) (no (unknown) (unknown) (+14 lb) 98/66 N (units (unknown) date) unknown) (unknown) (no (unknown) (unknown) (+15 lb) 98/62 N (units (unknown) date) unknown) (unknown) (no (unknown) (unknown) (+21 lb) 112/64 (units (unknown) date) N unknown) (unknown) (no (unknown) (unknown) (+21 lb) 92/68 N (units (unknown) date) unknown) (unknown) (no (unknown) (unknown) (+26 lb) 92/54 N (units (unknown) date) unknown) (unknown) (no [...] wn) date) unknown) (unknown) (no (unknown) (unknown) 11/17/22 (units (unkno wn) date) unknown) (unknown) (no (unknown) (unknown) 12/01/22 (units (unkno wn) date) unknown) (unknown) (no (unknown) (unknown) 12/07/22 (units (unkno wn) date) unknown) (unknown) (no (unknown) (unknown) [id number] (units (unkno wn) date) unknown) (unknown) (no (unknown) (unknown) 01/26/22 5 (units (unk nown) date) spontaneous unknown) (unknown) (no (unknown) (unknown) 06/09/22 (units (unkno wn) date) unknown) (unknown) (no (unknown) (unknown) 06/29/20 5 (units (unk nown) date) spontaneous unknown) (unknown) (no (unknown) (unknown) 07/07/22 (units (unkno wn) date) unknown) (unknown) (no (unknown) (unknown) 11w 5d 123 lb (units ( unknown) date) unknown) (unknown) (no (unknown) (unknown) 08/11/22 (units (unkno wn) date) unknown) (unknown) (no (unknown) (unknown) 13:38 (units (unkno wn) date) unknown) (unknown) (no (unknown) (unknown) 15w 5d 121 lb (units ( unknown) date) unknown) (unknown) (no (unknown) (unknown) 21 yo here (units (unknown) date) for IOB visit unknown) @11wk5d. An 8 week US was c/w LMP-TIFFANIE. H/o (unknown) (no (unknown) (unknown) 2 days ago on (units ( unknown) date) Labor and unknown) delivery for home elevated blood pressure and headache. (unknown) (no (unknown) (unknown) 2 wks (units [...] unknown) date) unknown) (unknown) (no (unknown) (unknown) 34w 5d 146 lb (units ( unknown) date) unknown) (unknown) (no (unknown) (unknown) 36w 5d 151 lb (units ( unknown) date) unknown) (unknown) [...] own) date) unknown) (unknown) (no (unknown) (unknown) [place], [place] (units ( unknown) date) [id number] unknown) (unknown) (no (unknown) (unknown) Anemia (-2020) (units (unknown) date) unknown) (unknown) (no (unknown) (unknown) Anesthesia (units (unk nown) date) unknown) (unknown) (no (unknown) (unknown) Aneuploidy (units (unk nown) date) Screening unknown) Offered: Accepted (undecided, will probably get quad (unknown) (no (unknown) (unknown) Anticipate , (units (unknown) date) [facility] unknown) (unknown) (no (unknown) (unknown) Anticipated (units [...] (units (unknown) date) options she unknown) desires Jing, Rx sent. History of severe (unknown) (no (unknown) (unknown) BMI 26.4 (units (unkno wn) date) unknown) (unknown) (no (unknown) (unknown) BP 110/62 (units (unkn own) date) unknown) (unknown) (no (unknown) (unknown) Bipolar [...] Classes: unknown) discussed (unknown) (no (unknown) (unknown) [place] ED. (units (unknown) date) 20 week US normal unknown) (unknown) (no (unknown) (unknown) Current Estimate (units (unknown) date) 12/24/22 LMP unknown) (Certain) 37w 4d (unknown) (no (unknown) (unknown) Current (units (unkno wn) date) History unknown) (unknown) (no (unknown) (unknown) : 2000 (units (unknown) date) Acct:[id number] unknown) (unknown) (no (unknown) (unknown) Date of [...] date) . unknown) (unknown) (no (unknown) (unknown) Saima and (units (un known) date) Constantine returns unknown) today for her FRED visit now 30+ 4 weeks (unknown) (no (unknown) (unknown) Saima is here (units (unknown) date) for a FRED visit @ unknown) 15wk5d. She is accompanied by her (unknown) (no (unknown) (unknown) Saima presents (units (unknown) date) for an are OB unknown) visit at 20 weeks 5 days. Constantine, (unknown) (no (unknown) (unknown) Saima returns (units (unknown) date) today for her FRED unknown) visit now at 27+ 4 weeks gestational (unknown) (no (unknown) (unknown) Saima returns (units (unknown) date) today for her FRED unknown) visit now at 36+ 5 weeks gestational (unknown) (no (unknown) (unknown) Jen is now (units (unknown) date) 30 2+5 weeks' unknown) gestation. She has a total flat affect (unknown) (no (unknown) (unknown) Diabetes (units (unkno wn) date) mellitus unknown) (unknown) (no (unknown) (unknown) Diet and (units (unkno wn) date) Exercise unknown) (unknown) (no (unknown) (unknown) Documented By: (units (unknown) date) Chaka Flores unknownBlanca BEE 12/07/22 1334 (unknown) (no (unknown) (unknown) Draft (units (unkno [...] Family History (units (unknown) date) (Reviewed unknown) 11/27/22 @ 20:32 by Chelsy Johns CNM) (unknown) (no (unknown) (unknown) Father Diabetes (units [...] date) unknown) (unknown) (no (unknown) (unknown) Intake (units [...] Medical History (units (unknown) date) (Reviewed unknown) 11/27/22 @ 20:32 by Chelsy Johns CNM) (unknown) (no (unknown) (unknown) Mental health (units ( unknown) date) problem unknown) (unknown) (no (unknown) (unknown) Mother (units (unkno wn) date) Gestational unknown) diabetes (unknown) (no (unknown) (unknown) N Yes no 130 32 (units (unknown) date) Breech absent 2wk unknown) (unknown) (no (unknown) (unknown) N Yes no 138 30 (units (unknown) date) Vertex absent unknown) 50%/CL/-3 (unknown) (no (unknown) (unknown) N Yes no 140 36 (units (unknown) date) Vertex absent unknown) 75%/CL/-2 GB (unknown) (no (unknown) (unknown) N Yes no 144 20 (units (unknown) date) absent 4wk unknown) (unknown) (no (unknown) (unknown) NF (units (unkno wn) date) unknown) (unknown) (no (unknown) (unknown) No Known Drug (units ( unknown) date) Allergies Allergy unknown) (Verified 12/01/22 14:33) (unknown) (no (unknown) (unknown) Non-Stress Test (units (unknown) date) performed?: No unknown) (unknown) (no (unknown) (unknown) Notes (units (unkno [...] (units (unknown) date) 12/22/22 unknown) Ultrasound #1 37w 6d (unknown) (no (unknown) (unknown) Ovarian cyst (units (u nknown) date) () unknown) (unknown) (no (unknown) (unknown) PFSH (units (unkno wn) date) unknown) (unknown) (no (unknown) (unknown) PID (acute (units (unk nown) date) pelvic unknown) inflammatory disease) (unknown) (no (unknown) (unknown) PTSD (units (unkno wn) date) (post-traumatic unknown) stress disorder) () (unknown) (no (unknown) (unknown) Pap performed?: (units (unknown) date) No unknown) (unknown) (no (unknown) (unknown) Para 0 (units [...] date) unknown) (unknown) (no (unknown) (unknown) Patient comes in (units (unknown) date) at 34 weeks 5 unknown) days with no complaints. She was evaluated (unknown) (no (unknown) (unknown) Patient was (units (un known) date) previously unknown) scheduled for iron infusions but this has not been (unknown) (no (unknown) (unknown) Patient's age 37 (units (unknown) date) years or older as unknown) of estimated date of delivery: No (unknown) (no (unknown) (unknown) Patient: (units (unkno wn) date) Blane,Saima N unknown) MR#: [id number] (unknown) (no (unknown) (unknown) Mandarin Tutor: (units ( unknown) date) CHAR Garg unknown) [...] (u nknown) date) Provider: CHAR Puentes unknown) [place] (unknown) (no (unknown) (unknown) Primary Ob (units (unk nown) date) Provider: unknown) Chaka Flores (unknown) (no (unknown) (unknown) Prior (units (unkno [...] RhoGAM as needed. (unknown) (no (unknown) (unknown) S POSITIVE 1 wk (units (unknown) date) unknown) (unknown) (no (unknown) (unknown) Sabs x4 @5-6 (units (u nknown) date) weeks. She passed unknown) a small clot a week ago, then had BRB yesterday (unknown) (no (unknown) (unknown) Safety (units (unkno wn) date) unknown) (unknown) (no (unknown) (unknown) Schizophrenia (units ( unknown) date) unknown) (unknown) (no (unknown) (unknown) Seizures (-2002) (units (unknown) date) unknown) (unknown) (no (unknown) (unknown) She had normal (units (unknown) date) PIH labs. She unknown) denies any headache currently. Baby is moving (unknown) (no (unknown) (unknown) Signed By: (units [...] Surgical History (units (unknown) date) (Reviewed unknown) 11/27/22 @ 20:32 by Chelsy Johns CNM) (unknown) (no (unknown) (unknown) Surrogate (units (unkn [...] (unknown) (no (unknown) (unknown) TR Yes no 128 34 (units (unknown) date) Uncertain absent unknown) 2wk (unknown) (no (unknown) (unknown) TR Yes no [...] (unknown) (unknown) Ultrasound (units (unk nown) date) performed?: No unknown) (unknown) (no (unknown) (unknown) Ultrasound (units (unk [...] (unknown) Visit Date: (units (un known) date) 11/17/22 Last unknown) Updated by: Rebecca Lilly MD (unknown) (no (unknown) (unknown) Visit Date: (units (un known) date) 12/01/22 Last unknown) Updated by: Chaka Flores MD [...] (unknown) Visit Reasons: (units (unknown) date) OB Ck unknown) (unknown) (no (unknown) (unknown) Vitals (units (unkno wn) date) unknown) (unknown) (no (unknown) (unknown) Vitamins and (units (u nknown) date) iron, Diet and unknown) weight gain, Fish and mercury intake, Smoking, (unknown) (no (unknown) (unknown) WG (units (unkno wn) date) unknown) (unknown) (no (unknown) (unknown) Weeks (units (unkno wn) date) gestation:: 37 unknown) (unknown) (no (unknown) (unknown) Weight 149 lb (units ( unknown) date) unknown) (unknown) [...] as needed. (unknown) (no (unknown) (unknown) age. GBS is (units (un known) date) reported as unknown) positive. Patient is aware. She is had several (unknown) (no (unknown) (unknown) age. She was [...] on US @ (unknown) (no (unknown) (unknown) bleeding, (units (unkn own) date) leakage of fluid unknown) per vagina, or change in discharge. Labor (unknown) (no (unknown) (unknown) blood, abnormal (units [...] (unknown) (no (unknown) (unknown) done at [facility] (units (unknown) date) health showed unknown) normal anatomy, placenta and normal cervical (unknown) (no (unknown) (unknown) duration: 15-30 (units (unknown) date) minutes/day unknown) (unknown) (no (unknown) (unknown) during the past (units (unknown) date) year weight has: unknown) other ([id number]-25-69 lb) (unknown) (no (unknown) (unknown) education level: (units (unknown) date) high school unknown) (unknown) (no (unknown) (unknown) effaced/closed/- (units (unknown) date) 2/posterior/soft unknown) (BS=5). Her baby remains active but she denies (unknown) (no (unknown) (unknown) episodes of (units (un known) date) false labor and unknown) presented for evaluation to the center but (unknown) (no (unknown) (unknown) episodes where (units [...] known) date) today who came unknown) from [place] to stay with her through (unknown) (no [...] apartment unknown) (unknown) (no (unknown) (unknown) in 2 weeks. (units (un known) date) Routine unknown) precautions reviewed with the patient. (unknown) (no (unknown) (unknown) in a few weeks. (units (unknown) date) Advised her to unknown) continue with pelvic rest for now . She reports (unknown) (no (unknown) (unknown) in the area. (units (u nknown) date) Discussed trying unknown) to establish with care in [place] (unknown) (no (unknown) (unknown) irritability was (units [...] stopped unknown) now. Seen in ED in [place] yesterday, (unknown) (no (unknown) (unknown) lives (units [...] to contact the (unknown) (no (unknown) (unknown) nifedipine. She (units [...] be detected on (unknown) (no (unknown) (unknown) precautions (units (un known) date) reviewed and unknown) follow-up will be in 1 week or as needed. (unknown) (no (unknown) (unknown) precautions, (units (u [...] unknown) effort is made to edit content, dental specialist errors (unknown) (no (unknown) (unknown) special mirella (units ( unknown) date) needs: No unknown) (unknown) (no (unknown) (unknown) started (units (unkno wn) date) sertraline but unknown) intends to do so in the next couple of days. Patient (unknown) (no (unknown) (unknown) substance use (units ( unknown) date) type: marijuana unknown) (quit when she learned she was ) (unknown) (no (unknown) (unknown) takes the 10 [...] times a week (unknown) (no (unknown) (unknown) those cervical (units (unknown) date) dilation has been unknown) noted. Today's exam shows the cervix to be 75% (unknown) (no (unknown) (unknown) though before (units [...] with unknown) persistent bad cramping when in [place] and I (unknown) (no (unknown) (unknown) weeks prior to (units (unknown) date) positive unknown) test, having a feeling she may be . (unknown) (no (unknown) (unknown) weeks, in (units (unkn own) date) [place] with unknown) in loss for about 6 weeks, then 1.5-2 weeks in (unknown) (no (unknown) (unknown) well-balanced (units ( unknown) date) diet: daily or unknown) most days (unknown) (no (unknown) (unknown) well. No vaginal (units (unknown) date) bleeding. No unknown) contractions. Good movement. Follow-up (unknown) (no (unknown) (unknown) will be drawn [...] detector in home: unknown) Yes Result panel [id number] (unknown) (no (unknown) (unknown) (no value) (units (unk nown) date) unknown) (unknown) (no (unknown) (unknown) (+14 lb) 98/66 N (units (unknown) date) unknown) (unknown) (no (unknown) (unknown) (+15 lb) 98/62 N (units (unknown) date) unknown) (unknown) (no (unknown) (unknown) (+21 lb) 112/64 (units (unknown) date) N unknown) (unknown) (no (unknown) (unknown) (+21 lb) 92/68 N (units (unknown) date) unknown) (unknown) (no (unknown) (unknown) (+24 lb) 110/62 (units (unknown) date) N unknown) (unknown) (no (unknown) (unknown) (+26 lb) 92/54 N (units (unknown) date) unknown) (unknown) (no (unknown) (unknown) (+6 lb) 104/68 N (units (unknown) date) unknown) (unknown) (no (unknown) (unknown) (-2 lb) 108/60 N (units (unknown) date) unknown) (unknown) (no (unknown) (unknown) (-4 lb) 100/70 N (units (unknown) date) unknown) (unknown) (no (unknown) (unknown) (1) (units ( unknown) date) related hip pain unknown) in third trimester, antepartum: (unknown) (no (unknown) (unknown) (2) : (units [...] wn) date) unknown) (unknown) (no (unknown) (unknown) 11/17/22 (units (unkno wn) date) unknown) (unknown) (no (unknown) (unknown) 12/01/22 (units (unkno wn) date) unknown) (unknown) (no (unknown) (unknown) 12/07/22 1358 (units ( unknown) date) unknown) (unknown) (no (unknown) (unknown) 12/07/22 (units (unkno wn) date) unknown) (unknown) (no (unknown) (unknown) [id number] (units (unkno wn) date) unknown) (unknown) (no (unknown) (unknown) 01/26/22 5 (units (unk nown) date) spontaneous unknown) (unknown) (no (unknown) (unknown) 1+ Yes no 144 37 (units (unknown) date) Vertex absent - 1 unknown) wk (unknown) (no (unknown) (unknown) 06/09/22 (units (unkno wn) date) unknown) (unknown) (no (unknown) (unknown) 06/29/20 5 (units (unk nown) date) spontaneous unknown) (unknown) (no (unknown) (unknown) 07/07/22 (units (unkno wn) date) unknown) (unknown) (no (unknown) (unknown) 11w 5d 123 lb (units ( unknown) date) unknown) (unknown) (no (unknown) (unknown) 08/11/22 (units (unkno wn) date) unknown) (unknown) (no (unknown) (unknown) 13:38 (units (unkno wn) date) unknown) (unknown) (no (unknown) (unknown) 15w 5d 121 lb (units ( unknown) date) unknown) (unknown) (no (unknown) (unknown) 21 yo here (units (unknown) date) for IOB visit unknown) @11wk5d. An 8 week US was c/w LMP-TIFFANIE. H/o (unknown) (no (unknown) (unknown) 2 days ago on (units ( unknown) date) Labor and unknown) delivery for home elevated blood pressure and headache. (unknown) (no (unknown) (unknown) 2 wks (units [...] unknown) date) unknown) (unknown) (no (unknown) (unknown) 34w 5d 146 lb (units ( unknown) date) unknown) (unknown) (no (unknown) (unknown) 36w 5d 151 lb (units ( unknown) date) unknown) (unknown) (no (unknown) (unknown) 37w 4d 149 lb (units ( unknown) date) unknown) (unknown) [...] own) date) unknown) (unknown) (no (unknown) (unknown) [place], [place] (units ( unknown) date) [id number] unknown) (unknown) (no (unknown) (unknown) Anemia (-2020) (units (unknown) date) unknown) (unknown) (no (unknown) (unknown) Anesthesia (units (unk nown) date) unknown) (unknown) (no (unknown) (unknown) Aneuploidy (units (unk nown) date) Screening unknown) Offered: Accepted (undecided, will probably get quad (unknown) (no (unknown) (unknown) Anticipate , (units (unknown) date) [facility] unknown) (unknown) (no (unknown) (unknown) Anticipated (units [...] of severe (unknown) (no (unknown) (unknown) BMI 26.4 (units (unkno wn) date) unknown) (unknown) (no (unknown) (unknown) BP 110/62 (units (unkn own) date) unknown) (unknown) (no (unknown) (unknown) Bipolar [...] Classes: unknown) discussed (unknown) (no (unknown) (unknown) [place] ED. (units (unknown) date) 20 week US normal unknown) (unknown) (no (unknown) (unknown) Current Estimate (units (unknown) date) 12/24/22 LMP unknown) (Certain) 37w 4d (unknown) (no (unknown) (unknown) Current (units (unkno wn) date) History unknown) (unknown) (no (unknown) (unknown) : 2000 (units (unknown) date) Acct:[id number] unknown) (unknown) (no (unknown) (unknown) Date of [...] date) . unknown) (unknown) (no (unknown) (unknown) Saima and (units (un known) date) Constantine returns unknown) today for her FRED visit now 30+ 4 weeks (unknown) (no (unknown) (unknown) Saima is here (units (unknown) date) for a FRED visit @ unknown) 15wk5d. She is accompanied by her (unknown) (no (unknown) (unknown) Saima presents (units (unknown) date) for an are OB unknown) visit at 20 weeks 5 days. Constantine, (unknown) (no (unknown) (unknown) Saima returns (units (unknown) date) today for her FRED unknown) visit now at 27+ 4 weeks gestational (unknown) (no (unknown) (unknown) Saima returns (units (unknown) date) today for her FRED unknown) visit now at 36+ 5 weeks gestational (unknown) (no (unknown) (unknown) Saima returns (units (unknown) date) today for her FRED unknown) visit now at 37+ 4 weeks gestational (unknown) (no (unknown) (unknown) Jen is now (units (unknown) date) 30 2+5 weeks' unknown) gestation. She has a total flat affect (unknown) (no (unknown) (unknown) Diabetes (units (unkno wn) date) mellitus unknown) (unknown) (no (unknown) (unknown) Diet and (units (unkno wn) date) Exercise unknown) (unknown) (no (unknown) (unknown) Documented By: (units (unknown) date) Chaka Flores unknown) 12/07/22 1334 (unknown) (no (unknown) (unknown) TIFFANIE Calculator (units (unknown) date) unknown) (unknown) (no (unknown) (unknown) EGA Weight BP (units ( unknown) date) UGlucose unknown) (unknown) (no (unknown) (unknown) Estimated (units (unkn own) date) Delivery Date unknown) Method Current (unknown) (no (unknown) (unknown) Expected (units (unkno wn) date) Delivery unknown) Route/Plan (unknown) (no (unknown) (unknown) Family History (units (unknown) date) (Reviewed unknown) 11/27/22 @ 20:32 by Chelsy Johns CNM) (unknown) (no (unknown) (unknown) Father Diabetes (units [...] date) unknown) (unknown) (no (unknown) (unknown) Intake (units [...] Medical History (units (unknown) date) (Reviewed unknown) 11/27/22 @ 20:32 by Chelsy Johns CNM) (unknown) (no (unknown) (unknown) Mental health (units ( unknown) date) problem unknown) (unknown) (no (unknown) (unknown) Mother (units (unkno wn) date) Gestational unknown) diabetes (unknown) (no (unknown) (unknown) N Yes no 130 32 (units (unknown) date) Breech absent 2wk unknown) (unknown) (no (unknown) (unknown) N Yes no 138 30 (units (unknown) date) Vertex absent unknown) 50%/CL/-3 (unknown) (no (unknown) (unknown) N Yes no 140 36 (units (unknown) date) Vertex absent unknown) 75%/CL/-2 GB (unknown) (no (unknown) (unknown) N Yes no 144 20 (units (unknown) date) absent 4wk unknown) (unknown) (no (unknown) (unknown) NF (units (unkno wn) date) unknown) (unknown) (no (unknown) (unknown) No Known Drug (units ( unknown) date) Allergies Allergy unknown) (Verified 12/01/22 14:33) (unknown) (no (unknown) (unknown) Non-Stress Test (units (unknown) date) performed?: No unknown) (unknown) (no (unknown) (unknown) Notes (units (unkno [...] (units (unknown) date) 12/22/22 unknown) Ultrasound #1 37w 6d (unknown) (no (unknown) (unknown) Ovarian cyst (units (u nknown) date) () unknown) (unknown) (no (unknown) (unknown) PFSH (units (unkno wn) date) unknown) (unknown) (no (unknown) (unknown) PID (acute (units (unk nown) date) pelvic unknown) inflammatory disease) (unknown) (no (unknown) (unknown) PTSD (units (unkno wn) date) (post-traumatic unknown) stress disorder) (-2019) (unknown) (no (unknown) (unknown) Pap performed?: (units (unknown) date) No unknown) (unknown) (no (unknown) (unknown) Para 0 (units [...] date) unknown) (unknown) (no (unknown) (unknown) Patient comes in (units (unknown) date) at 34 weeks 5 unknown) days with no complaints. She was evaluated (unknown) (no (unknown) (unknown) Patient was (units (un known) date) previously unknown) scheduled for iron infusions but this has not been (unknown) (no (unknown) (unknown) Patient's age 37 (units (unknown) date) years or older as unknown) of estimated date of delivery: No (unknown) (no (unknown) (unknown) [facility] ([facility]no wn) [id number] (unknown) (no (unknown) (unknown) Mandarin Tutor: (units ( unknown) date) CHAR [place] unknown) (unknown) (no (unknown) (unknown) Personal history [...] Ob (units (unk nown) date) Provider: unknown) Chaka Flores (unknown) (no (unknown) (unknown) Prior (units (unkno wn) date) GBS-Infected unknown) child: No (unknown) (no (unknown) (unknown) Prostate cancer (units (unknown) date) unknown) (unknown) (no (unknown) (unknown) Providers (units (unkn own) date) unknown) (unknown) (no (unknown) (unknown) Qualifiers: (units [...] RhoGAM as needed. (unknown) (no (unknown) (unknown) S POSITIVE 1 wk (units (unknown) date) unknown) (unknown) (no (unknown) (unknown) Sabs x4 @5-6 (units (u nknown) date) weeks. She passed unknown) a small clot a week ago, then had BRB yesterday (unknown) (no (unknown) (unknown) Safety (units (unkno wn) date) unknown) (unknown) (no (unknown) (unknown) Schizophrenia (units ( unknown) date) unknown) (unknown) (no (unknown) (unknown) Seizures (-2002) (units (unknown) date) unknown) (unknown) (no (unknown) (unknown) She had normal (units (unknown) date) PIH labs. She unknown) denies any headache currently. Baby is moving (unknown) (no (unknown) (unknown) Signed By: (units [...] Surgical History (units (unknown) date) (Reviewed unknown) 11/27/22 @ 20:32 by Chelsy Johns CNM) (unknown) (no (unknown) (unknown) Surrogate (units (unkn [...] (unknown) (no (unknown) (unknown) TR Yes no 128 34 (units (unknown) date) Uncertain absent unknown) 2wk (unknown) (no (unknown) (unknown) TR Yes no [...] US @ [facility]: SIUP, CRL c/w 8wk5d, US-TIFFAINE 12/22/22, c/w (unknown) (no (unknown) (unknown) Ultrasound (units (unk nown) date) performed?: No unknown) (unknown) (no (unknown) (unknown) Ultrasound (units (unk [...] (unknown) Visit Date: (units (un known) date) 11/17/22 Last unknown) Updated by: Rebecca Lilly MD (unknown) (no (unknown) (unknown) Visit Date: (units (un known) date) 12/01/22 Last unknown) Updated by: Chaka Flores MD (unknown) (no (unknown) (unknown) Visit Date: (units (un known) date) 12/07/22 Last unknown) Updated by: Chaka Flores MD [...] (unknown) Visit Reasons: (units (unknown) date) OB Ck unknown) (unknown) (no (unknown) (unknown) Vitals (units (unkno wn) date) unknown) (unknown) (no (unknown) (unknown) Vitamins and (units (u nknown) date) iron, Diet and unknown) weight gain, Fish and mercury intake, Smoking, (unknown) (no (unknown) (unknown) WG (units (unkno wn) date) unknown) (unknown) (no (unknown) (unknown) Weeks (units (unkno wn) date) gestation:: 37 unknown) (unknown) (no (unknown) (unknown) Weeks of (units (unkno wn) date) gestation: 36 unknown) weeks Qualified Code(s): Z3A.36 - 36 weeks (unknown) (no (unknown) (unknown) Weight 149 lb (units ( unknown) date) unknown) (unknown) (no (unknown) (unknown) Zika virus (units (unk nown) date) exposure: No unknown) (unknown) (no (unknown) (unknown) a lot of nausea (units (unknown) date) with emesis, december unknown) last whole day. No improvement with [...] as needed. (unknown) (no (unknown) (unknown) age. GBS is (units (un known) date) reported as unknown) positive. Patient is aware. She is had several (unknown) (no (unknown) (unknown) age. She (units (unkno wn) date) continues to be unknown) miserable due to pelvic pressure and discomfort out (unknown) (no (unknown) (unknown) age. She was [...] that with her (unknown) (no (unknown) (unknown) ay occur. (units (unkn own) date) Occasional unknown) wrong-word or 'sound-alike' substitutions may have (unknown) (no (unknown) (unknown) bleeding in 1st (units (unknown) date) trimester, unknown) resolved. Reported retroplacental bleed on US @ (unknown) (no (unknown) (unknown) bleeding, (units (unkn own) date) leakage of fluid unknown) per vagina, or change in discharge. Labor (unknown) (no (unknown) (unknown) blood, abnormal (units [...] (unknown) (no (unknown) (unknown) done at [facility] (units (unknown) date) health showed unknown) normal anatomy, placenta and normal cervical (unknown) (no (unknown) (unknown) duration: 15-30 (units (unknown) date) minutes/day unknown) (unknown) (no (unknown) (unknown) during the past (units (unknown) date) year weight has: unknown) other ([id number] lb) (unknown) (no (unknown) (unknown) education level: (units (unknown) date) high school unknown) (unknown) (no (unknown) (unknown) effaced/closed/- (units (unknown) date) 2/posterior/soft unknown) (BS=5). Her baby remains active but she denies (unknown) (no (unknown) (unknown) episodes of (units (un known) date) false labor and unknown) presented for evaluation to the center but (unknown) (no (unknown) (unknown) episodes where (units [...] known) date) today who came unknown) from [place] to stay with her through (unknown) (no [...] date) apartment unknown) (unknown) (no (unknown) (unknown) however state (units ( unknown) date) that she may be unknown) experiencing some leakage of fluid per vagina and (unknown) (no (unknown) (unknown) in 2 weeks. (units (un known) date) Routine unknown) precautions reviewed with the patient. (unknown) (no (unknown) (unknown) in a few weeks. (units (unknown) date) Advised her to unknown) continue with pelvic rest for now . She reports (unknown) (no (unknown) (unknown) in the area. (units (u nknown) date) Discussed trying unknown) to establish with care in [place] (unknown) (no (unknown) (unknown) into her hips. (units (unknown) date) She is having unknown) some contraction activity but denies regular (unknown) (no (unknown) (unknown) irritability was (units [...] stopped unknown) now. Seen in ED in [place] yesterday, (unknown) (no (unknown) (unknown) lives (units (unkno wn) date) independently: unknown) Yes (unknown) (no (unknown) (unknown) marital status: (units (unknown) date) unknown) (unknown) (no (unknown) (unknown) minutes x up to (units (unknown) date) 4 doses PRN unknown) increased contraction frequency but to contact the (unknown) (no (unknown) (unknown) nifedipine. She (units [...] be detected on (unknown) (no (unknown) (unknown) precautions (units (un known) date) reviewed and unknown) follow-up will be in 1 week or as needed. (unknown) (no (unknown) (unknown) precautions, (units (u [...] seen behind the (unknown) (no (unknown) (unknown) rule out occult (units (unknown) date) SROM. 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 Patient (unknown) (no (unknown) (unknown) substance use (units ( unknown) date) type: marijuana unknown) (quit when she learned she was ) (unknown) (no (unknown) (unknown) takes the 10 [...] times a week (unknown) (no (unknown) (unknown) those cervical (units (unknown) date) dilation has been unknown) noted. Today's exam shows the cervix to be 75% (unknown) (no (unknown) (unknown) though before (units [...] BP cuff, or (unknown) (no (unknown) (unknown) to the patient's (units (unknown) date) extreme unknown) discomfort. Labor precautions reviewed and follow-up (unknown) (no (unknown) (unknown) today, noting (units [...] early). Schedule anatomy (unknown) (no (unknown) (unknown) uterine (units (unkno wn) date) contractions, unknown) bleeding, or significant change in discharge. She does (unknown) (no (unknown) (unknown) veins. She (units [...] with unknown) persistent bad cramping when in [place] and I (unknown) (no (unknown) (unknown) weeks [...] unknown) most days (unknown) (no (unknown) (unknown) well. No vaginal (units (unknown) date) bleeding. No unknown) contractions. Good movement. Follow-up (unknown) (no (unknown) (unknown) will be drawn (units ( unknown) date) today along with unknown) her 1 hour GDM screen H+H. Patient has not yet (unknown) (no (unknown) (unknown) will be in 1 (units (u nknown) date) week if unknown) undelivered. (unknown) (no (unknown) (unknown) will be in 3 (units (u nknown) date) weeks or as unknown) needed. (unknown) (no (unknown) (unknown) will initiate (units ( unknown) date) daily nifedipine unknown) 60 mg and patient advised to take 10 mg PO q 20 (unknown) (no (unknown) (unknown) will therefore (units (unknown) date) send her to the unknown) center for evaluation in an AmniSure to (unknown) (no (unknown) (unknown) working smoke (units ( unknown) date) detector in home: unknown) Yes Result panel [id number] (unknown) (no (unknown) (unknown) (no value) (units (unk nown) date) unknown) (unknown) (no (unknown) (unknown) (+14 lb) 98/66 N (units (unknown) date) unknown) (unknown) (no (unknown) (unknown) (+15 lb) 98/62 N (units (unknown) date) unknown) (unknown) (no (unknown) (unknown) (+21 lb) 112/64 (units (unknown) date) N unknown) (unknown) (no (unknown) (unknown) (+21 lb) 92/68 N (units (unknown) date) unknown) (unknown) (no (unknown) (unknown) (+24 lb) 110/62 (units (unknown) date) N unknown) (unknown) (no (unknown) (unknown) (+26 lb) 92/54 N (units (unknown) date) unknown) (unknown) (no [...] wn) date) unknown) (unknown) (no (unknown) (unknown) 11/17/22 (units (unkno wn) date) unknown) (unknown) (no (unknown) (unknown) 12/01/22 (units (unkno wn) date) unknown) (unknown) (no (unknown) (unknown) 12/07/22 (units (unkno wn) date) unknown) (unknown) (no (unknown) (unknown) 12/14/22 (units (unkno wn) date) unknown) (unknown) (no (unknown) (unknown) [id number] (units (unkno wn) date) unknown) (unknown) (no (unknown) (unknown) 01/26/22 5 (units (unk nown) date) spontaneous unknown) (unknown) (no (unknown) (unknown) 1+ Yes no 144 37 (units (unknown) date) Vertex absent - 1 unknown) wk (unknown) (no (unknown) (unknown) 06/09/22 (units (unkno [...] unknown) date) unknown) (unknown) (no (unknown) (unknown) 16:27 (units (unkno wn) date) unknown) (unknown) (no (unknown) (unknown) 21 yo here (units (unknown) date) for IOB visit unknown) @11wk5d. An 8 week US was c/w LMP-TIFFANIE. H/o (unknown) (no (unknown) (unknown) 2 days ago on (units ( unknown) date) Labor and unknown) delivery for home elevated blood pressure and headache. (unknown) (no (unknown) (unknown) 2 wks (units [...] unknown) date) unknown) (unknown) (no (unknown) (unknown) 34w 5d 146 lb (units ( unknown) date) unknown) (unknown) (no (unknown) (unknown) 36w 5d 151 lb (units ( unknown) date) unknown) (unknown) (no (unknown) (unknown) 37w 4d 149 lb (units ( unknown) date) unknown) (unknown) [...] own) date) unknown) (unknown) (no (unknown) (unknown) [place], [place] (units ( unknown) date) [id number] unknown) (unknown) (no (unknown) (unknown) Anemia (-2020) (units (unknown) date) unknown) (unknown) (no (unknown) (unknown) Anesthesia (units (unk nown) date) unknown) (unknown) (no (unknown) (unknown) Aneuploidy (units (unk nown) date) Screening unknown) Offered: Accepted (undecided, will probably get quad (unknown) (no (unknown) (unknown) Anticipate , (units (unknown) date) [facility] unknown) (unknown) (no (unknown) (unknown) Anticipated (units [...] (units (unknown) date) options she unknown) desires Jing, Rx sent. History of severe (unknown) (no (unknown) (unknown) BMI 27.3 (units (unkno wn) date) unknown) (unknown) (no (unknown) (unknown) BP 102/66 (units (unkn own) date) unknown) (unknown) (no (unknown) (unknown) Bipolar disorder (units (unknown) date) unknown) (unknown) (no (unknown) (unknown) (units (unkno wn) date) Plan/Preferences unknown) (unknown) (no (unknown) (unknown) Planning (units (unknown) date) unknown) (unknown) (no (unknown) (unknown) Blood Pressure (units (unknown) date) Location Lt unknown) brachial (unknown) (no (unknown) (unknown) Blood [...] Classes: unknown) discussed (unknown) (no (unknown) (unknown) [place] ED. (units (unknown) date) 20 week US normal unknown) (unknown) (no (unknown) (unknown) Current Estimate (units (unknown) date) 12/24/22 LMP unknown) (Certain) 38w 4d (unknown) (no (unknown) (unknown) Current (units (unkno wn) date) History unknown) (unknown) (no (unknown) (unknown) : 2000 (units (unknown) date) Acct:[id number] unknown) (unknown) (no (unknown) (unknown) Date of [...] date) . unknown) (unknown) (no (unknown) (unknown) Saima and (units (un known) date) Constantine returns unknown) today for her FRED visit now 30+ 4 weeks (unknown) (no (unknown) (unknown) Saima is here (units (unknown) date) for a FRED visit @ unknown) 15wk5d. She is accompanied by her (unknown) (no (unknown) (unknown) Saima presents (units (unknown) date) for an are OB unknown) visit at 20 weeks 5 days. [place], (unknown) (no (unknown) (unknown) Saima returns (units (unknown) date) today for her FRED unknown) visit now at 27+ 4 weeks gestational (unknown) (no (unknown) (unknown) Saima returns (units (unknown) date) today for her FRED unknown) visit now at 36+ 5 weeks gestational (unknown) (no (unknown) (unknown) Saima returns (units (unknown) date) today for her FRED unknown) visit now at 37+ 4 weeks gestational (unknown) (no (unknown) (unknown) Jen is now (units (unknown) date) 30 2+5 weeks' unknown) gestation. She has a total flat affect (unknown) (no (unknown) (unknown) Diabetes (units (unkno wn) date) mellitus unknown) (unknown) (no (unknown) (unknown) Diet and (units (unkno wn) date) Exercise unknown) (unknown) (no (unknown) (unknown) Documented By: (units (unknown) date) Chaka Flores unknownBlanca BEE 12/14/22 1623 (unknown) (no (unknown) (unknown) Draft (units (unkno [...] Family History (units (unknown) date) (Reviewed unknown) 11/27/22 @ 20:32 by Chelsy Johns CNM) (unknown) (no (unknown) (unknown) Father Diabetes (units [...] Medical History (units (unknown) date) (Reviewed unknown) 11/27/22 @ 20:32 by Chelsy Johns CNM) (unknown) (no (unknown) (unknown) Mental health (units ( unknown) date) problem unknown) (unknown) (no (unknown) (unknown) Mother (units (unkno wn) date) Gestational unknown) diabetes (unknown) (no (unknown) (unknown) N Yes no 130 32 (units (unknown) date) Breech absent 2wk unknown) (unknown) (no (unknown) (unknown) N Yes no 138 30 (units (unknown) date) Vertex absent unknown) 50%/CL/-3 (unknown) (no (unknown) (unknown) N Yes no 140 36 (units (unknown) date) Vertex absent unknown) 75%/CL/-2 GB (unknown) (no (unknown) (unknown) N Yes no 144 20 (units (unknown) date) absent 4wk unknown) (unknown) (no (unknown) (unknown) NF (units (unkno wn) date) unknown) (unknown) (no (unknown) (unknown) No Known Drug (units ( unknown) date) Allergies Allergy unknown) (Verified 12/01/22 14:33) (unknown) (no (unknown) (unknown) Notes (units (unkno [...] (units (unknown) date) 12/22/22 unknown) Ultrasound #1 38w 6d (unknown) (no (unknown) (unknown) Ovarian cyst [...] date) unknown) (unknown) (no (unknown) (unknown) Patient comes in (units (unknown) date) at 34 weeks 5 unknown) days with no complaints. She was evaluated (unknown) (no (unknown) (unknown) Patient was (units (un known) date) previously unknown) scheduled for iron infusions but this has not been (unknown) (no (unknown) (unknown) Patient's age 37 (units (unknown) date) years or older as unknown) of estimated date of delivery: No (unknown) (no (unknown) (unknown) [facility] ([facility] (unkno wn) date[facility] [id number] (unknown) (no (unknown) (unknown) Mandarin Tutor: (units ( unknown) date) CHAR PuentesHaswell unknown) (unknown) (no (unknown) (unknown) Personal history [...] (u nknown) date) Provider: CHAR Puentes unknown) [place] (unknown) (no (unknown) (unknown) Primary Ob (units (unk nown) date) Provider: unknown) Chaka Flores (unknown) (no (unknown) (unknown) Prior (units (unkno [...] RhoGAM as needed. (unknown) (no (unknown) (unknown) S POSITIVE 1 wk (units (unknown) date) unknown) (unknown) (no (unknown) (unknown) Sabs x4 @5-6 (units (u nknown) date) weeks. She passed unknown) a small clot a week ago, then had BRB yesterday (unknown) (no (unknown) (unknown) Safety (units (unkno wn) date) unknown) (unknown) (no (unknown) (unknown) Schizophrenia (units ( unknown) date) unknown) (unknown) (no (unknown) (unknown) Seizures (-2002) (units (unknown) date) unknown) (unknown) (no (unknown) (unknown) She had normal (units (unknown) date) PIH labs. She unknown) denies any headache currently. Baby is moving (unknown) (no (unknown) (unknown) Signed By: (units [...] Surgical History (units (unknown) date) (Reviewed unknown) 11/27/22 @ 20:32 by Chelsy Johns CNM) (unknown) (no (unknown) (unknown) Surrogate (units (unkn [...] (unknown) (no (unknown) (unknown) TR Yes no 128 34 (units (unknown) date) Uncertain absent unknown) 2wk (unknown) (no (unknown) (unknown) TR Yes no [...] (unknown) Visit Date: (units (un known) date) 11/17/22 Last unknown) Updated by: Rebecca Lilly MD (unknown) (no (unknown) (unknown) Visit Date: (units (un known) date) 12/01/22 Last unknown) Updated by: Chaka Flores MD (unknown) (no (unknown) (unknown) Visit Date: (units (un known) date) 12/07/22 Last unknown) Updated by: Chaka Flores MD [...] (unknown) (unknown) Visit Reasons: (units (unknown) date) Ob Ck unknown) (unknown) (no (unknown) (unknown) Vitals (units (unkno wn) date) unknown) (unknown) (no (unknown) (unknown) Vitamins and (units (u nknown) date) iron, Diet and unknown) weight gain, Fish and mercury intake, Smoking, (unknown) (no (unknown) (unknown) WG (units (unkno wn) date) unknown) (unknown) (no (unknown) (unknown) Weeks (units (unkno wn) date) gestation:: 38 unknown) (unknown) (no (unknown) (unknown) Weight 154 lb (units ( unknown) date) unknown) (unknown) [...] as needed. (unknown) (no (unknown) (unknown) age. GBS is (units (un known) date) reported as unknown) positive. Patient is aware. She is had several (unknown) (no (unknown) (unknown) age. She (units (unkno wn) date) continues to be unknown) miserable due to pelvic pressure and discomfort out (unknown) (no (unknown) (unknown) age. She was [...] on US @ (unknown) (no (unknown) (unknown) bleeding, (units (unkn own) date) leakage of fluid unknown) per vagina, or change in discharge. Labor (unknown) (no (unknown) (unknown) blood, abnormal (units [...] (unknown) (no (unknown) (unknown) done at [facility] (units (unknown) date) health showed unknown) normal anatomy, placenta and normal cervical (unknown) (no (unknown) (unknown) duration: 15-30 (units (unknown) date) minutes/day unknown) (unknown) (no (unknown) (unknown) during the past (units (unknown) date) year weight has: unknown) other ([id number] lb) (unknown) (no (unknown) (unknown) education level: (units (unknown) date) high school unknown) (unknown) (no (unknown) (unknown) effaced/closed/- (units (unknown) date) 2/posterior/soft unknown) (BS=5). Her baby remains active but she denies (unknown) (no (unknown) (unknown) episodes of (units (un known) date) false labor and unknown) presented for evaluation to the center but (unknown) (no (unknown) (unknown) episodes where (units [...] known) date) today who came unknown) from [place] to stay with her through (unknown) (no [...] date) apartment unknown) (unknown) (no (unknown) (unknown) however state (units ( unknown) date) that she may be unknown) experiencing some leakage of fluid per vagina and (unknown) (no (unknown) (unknown) in 2 weeks. (units (un known) date) Routine unknown) precautions reviewed with the patient. (unknown) (no (unknown) (unknown) in a few weeks. (units (unknown) date) Advised her to unknown) continue with pelvic rest for now . She reports (unknown) (no (unknown) (unknown) in the area. (units (u nknown) date) Discussed trying unknown) to establish with care in [place] (unknown) (no (unknown) (unknown) into her hips. (units (unknown) date) She is having unknown) some contraction activity but denies regular (unknown) (no (unknown) (unknown) irritability was (units [...] stopped unknown) now. Seen in ED in [place] yesterday, (unknown) (no (unknown) (unknown) lives (units [...] to contact the (unknown) (no (unknown) (unknown) nifedipine. She (units [...] be detected on (unknown) (no (unknown) (unknown) precautions (units (un known) date) reviewed and unknown) follow-up will be in 1 week or as needed. (unknown) (no (unknown) (unknown) precautions, (units (u [...] seen behind the (unknown) (no (unknown) (unknown) rule out occult (units (unknown) date) SROM. 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 Patient (unknown) (no (unknown) (unknown) substance use (units ( unknown) date) type: marijuana unknown) (quit when she learned she was ) (unknown) (no (unknown) (unknown) takes the 10 [...] times a week (unknown) (no (unknown) (unknown) those cervical (units (unknown) date) dilation has been unknown) noted. Today's exam shows the cervix to be 75% (unknown) (no (unknown) (unknown) though before (units [...] BP cuff, or (unknown) (no (unknown) (unknown) to the patient's (units (unknown) date) extreme unknown) discomfort. Labor precautions reviewed and follow-up (unknown) (no (unknown) (unknown) today, noting (units [...] early). Schedule anatomy (unknown) (no (unknown) (unknown) uterine (units (unkno wn) date) contractions, unknown) bleeding, or significant change in discharge. She does (unknown) (no (unknown) (unknown) veins. She (units [...] with unknown) persistent bad cramping when in [place] and I (unknown) (no (unknown) (unknown) weeks [...] unknown) most days (unknown) (no (unknown) (unknown) well. No vaginal (units (unknown) date) bleeding. No unknown) contractions. Good movement. Follow-up (unknown) (no (unknown) (unknown) will be drawn (units ( unknown) date) today along with unknown) her 1 hour GDM screen H+H. Patient has not yet (unknown) (no (unknown) (unknown) will be in 1 (units (u nknown) date) week if unknown) undelivered. (unknown) (no (unknown) (unknown) will be in 3 (units (u nknown) date) weeks or as unknown) needed. (unknown) (no (unknown) (unknown) will initiate (units ( unknown) date) daily nifedipine unknown) 60 mg and patient advised to take 10 mg PO q 20 (unknown) (no (unknown) (unknown) will therefore (units (unknown) date) send her to the unknown) center for evaluation in an AmniSure to (unknown) (no (unknown) (unknown) working smoke (units ( unknown) date) detector in home: unknown) Yes Result panel [id number] (unknown) (no (unknown) (unknown) (no value) (units (unk nown) date) unknown) (unknown) (no (unknown) (unknown) (+14 lb) 98/66 N (units (unknown) date) unknown) (unknown) (no (unknown) (unknown) (+15 lb) 98/62 N (units (unknown) date) unknown) (unknown) (no (unknown) (unknown) (+21 lb) 112/64 (units (unknown) date) N unknown) (unknown) (no (unknown) (unknown) (+21 lb) 92/68 N (units (unknown) date) unknown) (unknown) (no (unknown) (unknown) (+24 lb) 110/62 (units (unknown) date) N unknown) (unknown) (no (unknown) (unknown) (+26 lb) 92/54 N (units (unknown) date) unknown) (unknown) (no (unknown) (unknown) (+29 lb) 102/66 (units (unknown) date) unknown) (unknown) (no (unknown) (unknown) (+6 lb) 104/68 N (units (unknown) date) unknown) (unknown) (no (unknown) (unknown) (-2 lb) 108/60 N (units (unknown) date) unknown) (unknown) (no (unknown) (unknown) (-4 lb) 100/70 N (units (unknown) date) unknown) (unknown) (no (unknown) (unknown) (1) (units ( unknown) date) related hip pain unknown) in third trimester, antepartum: (unknown) (no (unknown) (unknown) (2) : (units [...] wn) date) unknown) (unknown) (no (unknown) (unknown) 11/17/22 (units (unkno wn) date) unknown) (unknown) (no (unknown) (unknown) 12/01/22 (units (unkno wn) date) unknown) (unknown) (no (unknown) (unknown) 12/07/22 (units (unkno wn) date) unknown) (unknown) (no (unknown) (unknown) 12/14/22 1641 (units ( unknown) date) unknown) (unknown) (no (unknown) (unknown) 12/14/22 (units (unkno wn) date) unknown) (unknown) (no (unknown) (unknown) 12/15/2022. (units (un known) date) Labor precautions unknown) reviewed. (unknown) (no (unknown) (unknown) [id number] (units (unkno wn) date) unknown) (unknown) (no (unknown) (unknown) 01/26/22 5 (units (unk nown) date) spontaneous unknown) (unknown) (no (unknown) (unknown) 1+ Yes no 144 37 (units (unknown) date) Vertex absent - 1 unknown) wk (unknown) (no (unknown) (unknown) 06/09/22 (units (unkno [...] unknown) date) unknown) (unknown) (no (unknown) (unknown) 16:27 (units (unkno wn) date) unknown) (unknown) (no (unknown) (unknown) 21 yo here (units (unknown) date) for IOB visit unknown) @11wk5d. An 8 week US was c/w LMP-TIFFANIE. H/o (unknown) (no (unknown) (unknown) 2 days ago on (units ( unknown) date) Labor and unknown) delivery for home elevated blood pressure and headache. (unknown) (no (unknown) (unknown) 2 wks (units [...] unknown) date) unknown) (unknown) (no (unknown) (unknown) 34w 5d 146 lb (units ( unknown) date) unknown) (unknown) (no (unknown) (unknown) 36w 5d 151 lb (units ( unknown) date) unknown) (unknown) (no (unknown) (unknown) 37w 4d 149 lb (units ( unknown) date) unknown) (unknown) (no (unknown) (unknown) 38w 4d 154 lb (units ( unknown) date) unknown) (unknown) [...] own) date) unknown) (unknown) (no (unknown) (unknown) [place], [place] (units ( unknown) date) [id number] unknown) (unknown) (no (unknown) (unknown) Anemia (-2020) (units (unknown) date) unknown) (unknown) (no (unknown) (unknown) Anesthesia (units (unk nown) date) unknown) (unknown) (no (unknown) (unknown) Aneuploidy (units (unk nown) date) Screening unknown) Offered: Accepted (undecided, will probably get quad (unknown) (no (unknown) (unknown) Anticipate , (units (unknown) date) [facility] unknown) (unknown) (no (unknown) (unknown) Anticipated (units [...] of severe (unknown) (no (unknown) (unknown) BMI 27.3 (units (unkno wn) date) unknown) (unknown) (no (unknown) (unknown) BP 102/66 (units (unkn own) date) unknown) (unknown) (no (unknown) (unknown) Bipolar disorder (units (unknown) date) unknown) (unknown) (no (unknown) (unknown) (units (unkno wn) date) Plan/Preferences unknown) (unknown) (no (unknown) (unknown) Planning (units (unknown) date) unknown) (unknown) (no (unknown) (unknown) Blood Pressure (units (unknown) date) Location Lt unknown) brachial (unknown) (no (unknown) (unknown) Blood (units (unkno wn) date) transfusions?: unknown) yes (Never had but would accept) (unknown) (no (unknown) (unknown) [place] Zhang (units ( unknown) date) contractions but unknown) denies regular uterine contractions, bleeding, (unknown) (no (unknown) (unknown) Breastfeed Preg (units [...] Classes: unknown) discussed (unknown) (no (unknown) (unknown) [place] ED. (units (unknown) date) 20 week US normal unknown) (unknown) (no (unknown) (unknown) Current Estimate (units (unknown) date) 12/24/22 LMP unknown) (Certain) 38w 4d (unknown) (no (unknown) (unknown) Current (units (unkno wn) date) History unknown) (unknown) (no (unknown) (unknown) : 2000 (units (unknown) date) Acct:[id number] unknown) (unknown) (no (unknown) (unknown) Date of [...] date) . unknown) (unknown) (no (unknown) (unknown) Saima and (units (un known) date) [place] return unknown) today for her FRED visit now at 38+ 4 weeks (unknown) (no (unknown) (unknown) Saima and (units (un known) date) [place] returns unknown) today for her FRED visit now 30+ 4 weeks (unknown) (no (unknown) (unknown) Saima is here (units (unknown) date) for a FRED visit @ unknown) 15wk5d. She is accompanied by her (unknown) (no (unknown) (unknown) Saima presents (units (unknown) date) for an are OB unknown) visit at 20 weeks 5 days. [place], (unknown) (no (unknown) (unknown) Saima returns (units (unknown) date) today for her FRED unknown) visit now at 27+ 4 weeks gestational (unknown) (no (unknown) (unknown) Saima returns (units (unknown) date) today for her FRED unknown) visit now at 36+ 5 weeks gestational (unknown) (no (unknown) (unknown) Saima returns (units (unknown) date) today for her FRED unknown) visit now at 37+ 4 weeks gestational (unknown) (no (unknown) (unknown) Jen is now (units (unknown) date) 30 2+5 weeks' unknown) gestation. She has a total flat affect (unknown) (no (unknown) (unknown) Diabetes (units (unkno wn) date) mellitus unknown) (unknown) (no (unknown) (unknown) Diet and (units (unkno wn) date) Exercise unknown) (unknown) (no (unknown) (unknown) Documented By: (units (unknown) date) Chaka Flores unknown) 12/14/22 1623 (unknown) (no (unknown) (unknown) TIFFANIE Calculator (units (unknown) date) unknown) (unknown) (no (unknown) (unknown) EGA Weight BP (units ( unknown) date) UGlucose unknown) (unknown) (no (unknown) (unknown) Estimated (units (unkn own) date) Delivery Date unknown) Method Current (unknown) (no (unknown) (unknown) Expected (units (unkno wn) date) Delivery unknown) Route/Plan (unknown) (no (unknown) (unknown) Family History (units (unknown) date) (Reviewed unknown) 11/27/22 @ 20:32 by Chelsy Johns CNM) (unknown) (no (unknown) (unknown) Father Diabetes (units [...] Medical History (units (unknown) date) (Reviewed unknown) 11/27/22 @ 20:32 by Chelsy Johns CNM) (unknown) (no (unknown) (unknown) Mental health (units ( unknown) date) problem unknown) (unknown) (no (unknown) (unknown) Mother (units (unkno wn) date) Gestational unknown) diabetes (unknown) (no (unknown) (unknown) N Yes no 130 32 (units (unknown) date) Breech absent 2wk unknown) (unknown) (no (unknown) (unknown) N Yes no 138 30 (units (unknown) date) Vertex absent unknown) 50%/CL/-3 (unknown) (no (unknown) (unknown) N Yes no 140 36 (units (unknown) date) Vertex absent unknown) 75%/CL/-2 GB (unknown) (no (unknown) (unknown) N Yes no 144 20 (units (unknown) date) absent 4wk unknown) (unknown) (no (unknown) (unknown) NF (units (unkno wn) date) unknown) (unknown) (no (unknown) (unknown) No Known Drug (units ( unknown) date) Allergies Allergy unknown) (Verified 12/01/22 14:33) (unknown) (no (unknown) (unknown) Notes (units (unkno [...] (units (unknown) date) 12/22/22 unknown) Ultrasound #1 38w 6d (unknown) (no (unknown) (unknown) Ovarian cyst [...] date) unknown) (unknown) (no (unknown) (unknown) Patient comes in (units (unknown) date) at 34 weeks 5 unknown) days with no complaints. She was evaluated (unknown) (no (unknown) (unknown) Patient was (units (un known) date) previously unknown) scheduled for iron infusions but this has not been (unknown) (no (unknown) (unknown) Patient's age 37 (units (unknown) date) years or older as unknown) of estimated date of delivery: No (unknown) (no (unknown) (unknown) Patient: (units (unkno wn) date) Sites,Saima N unknown) MR#: [id number] (unknown) (no (unknown) (unknown) Mandarin Tutor: (units ( unknown) date) CHAR Garg unknown) [...] (u nknown) date) Provider: CHAR Puentes unknown) [place] (unknown) (no (unknown) (unknown) Primary Ob (units (unk nown) date) Provider: unknown) Chaka Flores (unknown) (no (unknown) (unknown) Prior (units (unkno [...] RhoGAM as needed. (unknown) (no (unknown) (unknown) S POSITIVE 1 wk (units (unknown) date) unknown) (unknown) (no (unknown) (unknown) Sabs x4 @5-6 (units (u nknown) date) weeks. She passed unknown) a small clot a week ago, then had BRB yesterday (unknown) (no (unknown) (unknown) Safety (units (unkno wn) date) unknown) (unknown) (no (unknown) (unknown) Schizophrenia (units ( unknown) date) unknown) (unknown) (no (unknown) (unknown) Seizures (-2002) (units (unknown) date) unknown) (unknown) (no (unknown) (unknown) She had normal (units (unknown) date) PIH labs. She unknown) denies any headache currently. Baby is moving (unknown) (no (unknown) (unknown) Signed By: (units [...] Surgical History (units (unknown) date) (Reviewed unknown) 11/27/22 @ 20:32 by Chelsy Johns CNM) (unknown) (no (unknown) (unknown) Surrogate (units (unkn [...] (unknown) (no (unknown) (unknown) TR Yes no 128 34 (units (unknown) date) Uncertain absent unknown) 2wk (unknown) (no (unknown) (unknown) TR Yes no [...] (unknown) Visit Date: (units (un known) date) 11/17/22 Last unknown) Updated by: Rebecca Lilly MD (unknown) (no (unknown) (unknown) Visit Date: (units (un known) date) 12/01/22 Last unknown) Updated by: Chaka Flores MD (unknown) (no (unknown) (unknown) Visit Date: (units (un known) date) 12/07/22 Last unknown) Updated by: Chaka Flores MD (unknown) (no (unknown) (unknown) Visit Date: (units (un known) date) 12/14/22 Last unknown) Updated by: Chaka Flores MD [...] (unknown) (unknown) Visit Reasons: (units (unknown) date) Ob Ck unknown) (unknown) (no (unknown) (unknown) Vitals (units (unkno wn) date) unknown) (unknown) (no (unknown) (unknown) Vitamins and (units (u nknown) date) iron, Diet and unknown) weight gain, Fish and mercury intake, Smoking, (unknown) (no (unknown) (unknown) WG (units (unkno wn) date) unknown) (unknown) (no (unknown) (unknown) Weeks (units (unkno wn) date) gestation:: 38 unknown) (unknown) (no (unknown) (unknown) Weeks of (units (unkno wn) date) gestation: 36 unknown) weeks Qualified Code(s): Z3A.36 - 36 weeks (unknown) (no (unknown) (unknown) Weight 154 lb (units ( unknown) date) unknown) (unknown) (no (unknown) (unknown) Yes no 138 36 (units ( unknown) date) Vertex absent unknown) 80%/LFT/0-1 (unknown) (no (unknown) (unknown) Zika virus (units [...] as needed. (unknown) (no (unknown) (unknown) age. GBS is (units (un known) date) reported as unknown) positive. Patient is aware. She is had several (unknown) (no (unknown) (unknown) age. She (units (unkno wn) date) continues to be unknown) miserable due to pelvic pressure and discomfort out (unknown) (no (unknown) (unknown) age. She was [...] that with her (unknown) (no (unknown) (unknown) ay occur. (units (unkn own) date) Occasional unknown) wrong-word or 'sound-alike' substitutions may have (unknown) (no (unknown) (unknown) bleeding in 1st (units (unknown) date) trimester, unknown) resolved. Reported retroplacental bleed on US @ (unknown) (no (unknown) (unknown) bleeding, (units (unkn own) date) leakage of fluid unknown) per vagina, or change in discharge. Labor (unknown) (no (unknown) (unknown) blood, abnormal (units [...] unknown) Yes (unknown) (no (unknown) (unknown) cervical (units (unkno wn) date) ripening on the unknown) evening of 12/16/2022 with induction on the morning of (unknown) (no (unknown) (unknown) cfDNA low risk, [...] (unknown) (no (unknown) (unknown) done at [facility] (units (unknown) date) health showed unknown) normal anatomy, placenta and normal cervical (unknown) (no (unknown) (unknown) duration: 15-30 (units (unknown) date) minutes/day unknown) (unknown) (no (unknown) (unknown) during the past (units (unknown) date) year weight has: unknown) other ([id number]-19-98 lb) (unknown) (no (unknown) (unknown) education level: (units (unknown) date) high school unknown) (unknown) (no (unknown) (unknown) effaced/closed/- (units (unknown) date) 2/posterior/soft unknown) (BS=5). Her baby remains active but she denies (unknown) (no (unknown) (unknown) episodes of (units (un known) date) false labor and unknown) presented for evaluation to the center but (unknown) (no (unknown) (unknown) episodes where (units (unknown) date) she has had more unknown) than 5 or 6 contractions in an hour, therefore (unknown) (no (unknown) (unknown) erk (units (unkno wn) date) unknown) (unknown) (no (unknown) (unknown) evaluation of (units ( unknown) date) gentle unknown) endocervical sampling slide. Patient has had several (unknown) (no (unknown) (unknown) excruciating (units (u nknown) date) left-sided hip unknown) pain and is currently scheduled to be admitted for (unknown) (no (unknown) (unknown) feeling (units ( [...] (unknown) (unknown) gestational age. (units (unknown) date) Her baby remains unknown) active and she is having more in the way of (unknown) (no (unknown) (unknown) gestational age. (units (unknown) date) She is had 2 more unknown) visits to the center regarding (unknown) (no (unknown) (unknown) grandfather (units (un known) date) today who came unknown) from [place] to stay with her through (unknown) (no [...] date) apartment unknown) (unknown) (no (unknown) (unknown) however state (units ( unknown) date) that she may be unknown) experiencing some leakage of fluid per vagina and (unknown) (no (unknown) (unknown) in 2 weeks. (units (un known) date) Routine unknown) precautions reviewed with the patient. (unknown) (no (unknown) (unknown) in a few weeks. (units (unknown) date) Advised her to unknown) continue with pelvic rest for now . She reports (unknown) (no (unknown) (unknown) in the area. (units (u nknown) date) Discussed trying unknown) to establish with care in [place] (unknown) (no (unknown) (unknown) into her hips. (units (unknown) date) She is having unknown) some contraction activity but denies regular (unknown) (no (unknown) (unknown) irritability was (units [...] considering starting now (unknown) (no (unknown) (unknown) leakage of fluid (units (unknown) date) per vagina, or unknown) change in discharge. She continues to have (unknown) (no (unknown) (unknown) length, 3.6 cm. (units (unknown) date) She reports that unknown) she will be out of town until approximately 31 (unknown) (no (unknown) (unknown) like start of (units ( unknown) date) menses, stopped unknown) now. Seen in ED in [place] yesterday, (unknown) (no (unknown) (unknown) lives (units (unkno wn) date) independently: unknown) Yes (unknown) (no (unknown) (unknown) marital status: (units (unknown) date) unknown) (unknown) (no (unknown) (unknown) minutes x up to (units (unknown) date) 4 doses PRN unknown) increased contraction frequency but to contact the (unknown) (no (unknown) (unknown) nifedipine. She (units [...] be detected on (unknown) (no (unknown) (unknown) precautions (units (un known) date) reviewed and unknown) follow-up will be in 1 week or as needed. (unknown) (no (unknown) (unknown) precautions, (units (u [...] seen behind the (unknown) (no (unknown) (unknown) rule out occult (units (unknown) date) SROM. 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 Patient (unknown) (no (unknown) (unknown) substance use (units ( unknown) date) type: marijuana unknown) (quit when she learned she was ) (unknown) (no (unknown) (unknown) takes the 10 [...] times a week (unknown) (no (unknown) (unknown) those cervical (units (unknown) date) dilation has been unknown) noted. Today's exam shows the cervix to be 75% (unknown) (no (unknown) (unknown) though before (units [...] BP cuff, or (unknown) (no (unknown) (unknown) to the patient's (units (unknown) date) extreme unknown) discomfort. Labor precautions reviewed and follow-up (unknown) (no (unknown) (unknown) today, noting (units [...] early). Schedule anatomy (unknown) (no (unknown) (unknown) uterine (units (unkno wn) date) contractions, unknown) bleeding, or significant change in discharge. She does (unknown) (no (unknown) (unknown) veins. She (units [...] with unknown) persistent bad cramping when in [place] and I (unknown) (no (unknown) (unknown) weeks [...] unknown) most days (unknown) (no (unknown) (unknown) well. No vaginal (units (unknown) date) bleeding. No unknown) contractions. Good movement. Follow-up (unknown) (no (unknown) (unknown) will be drawn (units ( unknown) date) today along with unknown) her 1 hour GDM screen H+H. Patient has not yet (unknown) (no (unknown) (unknown) will be in 1 (units (u nknown) date) week if unknown) undelivered. (unknown) (no (unknown) (unknown) will be in 3 (units (u nknown) date) weeks or as unknown) needed. (unknown) (no (unknown) (unknown) will initiate (units ( unknown) date) daily nifedipine unknown) 60 mg and patient advised to take 10 mg PO q 20 (unknown) (no (unknown) (unknown) will therefore (units (unknown) date) send her to the unknown) center for evaluation in an AmniSure to (unknown) (no (unknown) (unknown) working smoke (units ( unknown) date) detector in home: unknown) Yes Result panel [id number] (unknown) (no date) (unknown) (unknown) 0 /ul (unkn own) (unknown) (no date) (unknown) (unknown) 0 /ul (unkn own) (unknown) (no date) (unknown) (unknown) 0.4 % (unkn own) (unknown) (no date) (unknown) (unknown) 0.4 % (unkn own) (unknown) (no date) (unknown) (unknown) 10.9 x10 3/ul (unkn own) (unknown) (no date) (unknown) (unknown) 1000 /ul (unkn own) (unknown) (no date) (unknown) (unknown) 12.2 g/dl (unkn own) (unknown) (no date) (unknown) (unknown) 193 x10 3/ul (unkn own) (unknown) (no date) (unknown) (unknown) 26.3 % (unkn own) (unknown) (no date) (unknown) (unknown) 26.8 pg (unkn own) (unknown) (no date) (unknown) (unknown) 27.3 % (unkn own) (unknown) (no date) (unknown) (unknown) 2900 /ul (unkn own) (unknown) (no date) (unknown) (unknown) 33.2 % (unkn own) (unknown) (no date) (unknown) (unknown) 36.7 % (unkn own) (unknown) (no date) (unknown) (unknown) 4.53 x10 6/ul (unkn own) (unknown) (no date) (unknown) (unknown) 64.0 % (unkn own) (unknown) (no date) (unknown) (unknown) 6900 /ul (unkn own) (unknown) (no date) (unknown) (unknown) 8.9 % (unkn own) (unknown) (no date) (unknown) (unknown) 80.9 fl (unkn own) Result panel [id number] (unknown) (no date) (unknown) (unknown) 0 /ul (unkn own) (unknown) (no date) (unknown) (unknown) 0 /ul (unkn own) (unknown) (no date) (unknown) (unknown) 0.4 % (unkn own) (unknown) (no date) (unknown) (unknown) 0.4 % (unkn own) (unknown) (no date) (unknown) (unknown) 10.9 x10 3/ul (unkn own) (unknown) (no date) (unknown) (unknown) 1000 /ul (unkn own) (unknown) (no date) (unknown) (unknown) 12.2 g/dl (unkn own) (unknown) (no date) (unknown) (unknown) 193 x10 3/ul (unkn own) (unknown) (no date) (unknown) (unknown) 2 (units (unkn own) unknown) (unknown) (no date) (unknown) (unknown) 26.3 % (unkn own) (unknown) (no date) (unknown) (unknown) 26.8 pg (unkn own) (unknown) (no date) (unknown) (unknown) 27.3 % (unkn own) (unknown) (no date) (unknown) (unknown) 2900 /ul (unkn own) (unknown) (no date) (unknown) (unknown) 33.2 % (unkn own) (unknown) (no date) (unknown) (unknown) 36.7 % (unkn own) (unknown) (no date) (unknown) (unknown) 4.53 x10 6/ul (unkn own) (unknown) (no date) (unknown) (unknown) 64.0 % (unkn own) (unknown) (no date) (unknown) (unknown) 6900 /ul (unkn own) (unknown) (no date) (unknown) (unknown) 8.9 % (unkn own) (unknown) (no date) (unknown) (unknown) 80.9 fl (unkn own) (unknown) (no date) (unknown) (unknown) See Below (units (unk nown) unknown) Result panel 2413 (unknown) (no date) (unknown) (unknown) NEGATIVE (units (unkn own) unknown) (unknown) (no date) (unknown) (unknown) O Positive (units (un known) unknown) Result panel 2414 (unknown) (no (unknown) (unknown) (no value) (units (unk nown) date) unknown) (unknown) (no (unknown) (unknown) #60 tabs (units (unkno wn) date) unknown) (unknown) (no (unknown) (unknown) 12/16/22 (units (unkno wn) date) 12/16/22 unknown) (unknown) (no (unknown) (unknown) 12/16/22 20:15 (units (unknown) date) unknown) (unknown) (no (unknown) (unknown) [id number] (units (unkno wn) date) unknown) (unknown) (no (unknown) (unknown) 20:15 20:15 (units (un known) date) unknown) (unknown) (no (unknown) (unknown) ADHD (units (unkno wn) date) unknown) (unknown) (no (unknown) (unknown) Acne (units (unkno wn) date) unknown) (unknown) (no (unknown) (unknown) Age/Sex: 22 / F (units (unknown) date) unknown) (unknown) (no (unknown) (unknown) Allergies (units (unkn own) date) unknown) (unknown) (no (unknown) (unknown) Allergy/AdvReac (units (unknown) date) Type Severity unknown) Reaction Status Date / Time (unknown) (no (unknown) (unknown) Anemia (-2020) (units (unknown) date) unknown) (unknown) (no (unknown) (unknown) Anesthesia (units (unk nown) date) unknown) (unknown) (no (unknown) (unknown) Anisocytosis 2+ (units (unknown) date) H unknown) (unknown) (no (unknown) (unknown) Antibody Screen (units (unknown) date) Negative unknown) (unknown) (no (unknown) (unknown) Anxiety (units (unkno wn) date) unknown) (unknown) (no (unknown) (unknown) Autism (units (unkno wn) date) unknown) (unknown) (no (unknown) (unknown) Baso # (Auto) 0 (units (unknown) date) unknown) (unknown) (no (unknown) (unknown) Baso % (Auto) (units ( unknown) date) 0.4 unknown) (unknown) (no (unknown) (unknown) Bipolar disorder (units (unknown) date) unknown) (unknown) (no (unknown) (unknown) Blood Type O (units (u nknown) date) Positive unknown) (unknown) (no (unknown) (unknown) Brother Anxiety (units (unknown) date) unknown) (unknown) (no (unknown) (unknown) Cancer (units (unkno wn) date) unknown) (unknown) (no (unknown) (unknown) Chief complaint: (units (unknown) date) IUP, 38+6 wks unknown) EGA, Xtreme mat. discomfort, GBS (unknown) (no (unknown) (unknown) : 2000 (units (unknown) date) Acct:[id number] unknown) (unknown) (no (unknown) (unknown) Date Patient (units (u nknown) date) Seen: 12/16/22 unknown) (unknown) (no (unknown) (unknown) Date of Service: (units (unknown) date) 12/16/22 unknown) (unknown) (no (unknown) (unknown) Date of (units (unkno wn) date) admission: unknown) 12/16/22 (unknown) (no (unknown) (unknown) Date/Time (units (unkn own) date) unknown) (unknown) (no (unknown) (unknown) Depression (units (unk nown) date) unknown) (unknown) (no (unknown) (unknown) Saima N Sites (units (unknown) date) is a 22 year old unknown) TIFFANIE 12/24/2022 admitted now at 38+6 weeks (unknown) (no (unknown) (unknown) Diabetes (units (unkno wn) date) mellitus unknown) (unknown) (no (unknown) (unknown) EGA for (units (unkno wn) date) ripening/inductio unknown) n due to incapacitating left sided hip pain. (unknown) (no (unknown) (unknown) Eos # (Auto) 0 (units (unknown) date) unknown) (unknown) (no (unknown) (unknown) Eos % (Auto) 0.4 (units (unknown) date) L unknown) (unknown) (no (unknown) (unknown) Estimated Date (units (unknown) date) of Delivery: unknown) 12/24/22 (unknown) (no (unknown) (unknown) Estimated (units (unkn own) date) Gestational Age unknown) (weeks): 38+6 (unknown) (no (unknown) (unknown) Family History (units (unknown) date) (Reviewed unknown) 11/27/22 @ 20:32 by Chelsy Johns CNM) (unknown) (no (unknown) (unknown) Father Diabetes (units (unknown) date) mellitus unknown) (unknown) (no (unknown) (unknown) Grandfather (units (un known) date) Diabetes mellitus unknown) (unknown) (no (unknown) (unknown) Grandfather (units (un known) date) Family unknown) estrangement (unknown) (no (unknown) (unknown) Grandmother (units (un known) date) Cancer unknown) (unknown) (no (unknown) (unknown) Grandmother (units (un known) date) Diabetes unknown) mellitus (unknown) (no (unknown) (unknown) : 5 (units (unk nown) date) unknown) (unknown) (no (unknown) (unknown) H/O hand surgery (units (unknown) date) unknown) (unknown) (no (unknown) (unknown) Hct 36.7 (units (unkno wn) date) unknown) (unknown) (no (unknown) (unknown) Hgb 12.2 (units (unkno wn) date) unknown) (unknown) (no (unknown) (unknown) History of (units (unk nown) date) Present Condition unknown) 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 (unknown) (no (unknown) (unknown) History of (units (unk nown) date) removal of skin unknown) mole (unknown) (no (unknown) (unknown) Home Medications (units (unknown) date) and Allergies unknown) (unknown) (no (unknown) (unknown) Home Medications (units (unknown) date) unknown) (unknown) (no (unknown) (unknown) Hyperlipidemia (units (unknown) date) unknown) (unknown) (no (unknown) (unknown) Hypertension (units (u nknown) date) unknown) (unknown) (no (unknown) (unknown) [facility] (units (unknown) date) [address] unknown) [place] [address] (unknown) (no (unknown) (unknown) Laboratory (units (unk nown) date) Results - last 24 unknown) hr (unknown) (no (unknown) (unknown) Labs (units (unkno wn) date) unknown) (unknown) (no (unknown) (unknown) Labs: (units (unkno wn) date) unknown) (unknown) (no (unknown) (unknown) Lung cancer (units (un known) date) unknown) (unknown) (no (unknown) (unknown) Lymph # (Auto) (units (unknown) date) 2900 unknown) (unknown) (no (unknown) (unknown) Lymph % (Auto) (units (unknown) date) 26.3 unknown) (unknown) (no (unknown) (unknown) MCH 26.8 (units (unkno wn) date) unknown) (unknown) (no (unknown) (unknown) MCHC 33.2 (units (unkn own) date) unknown) (unknown) (no (unknown) (unknown) MCV 80.9 (units (unkno wn) date) unknown) (unknown) (no (unknown) (unknown) Medical History (units (unknown) date) (Reviewed unknown) 11/27/22 @ 20:32 by Chelsy Johns CNM) (unknown) (no (unknown) (unknown) Medication (units (unk nown) date) Instructions unknown) Recorded Confirmed Type (unknown) (no (unknown) (unknown) Meds (units (unkno wn) date) unknown) (unknown) (no (unknown) (unknown) Mental health (units ( unknown) date) problem unknown) (unknown) (no (unknown) (unknown) Todd # (Auto) (units ( unknown) date) 1000 H unknown) (unknown) (no (unknown) (unknown) Todd % (Auto) (units ( unknown) date) 8.9 unknown) (unknown) (no (unknown) (unknown) Mother (units (unkno wn) date) Gestational unknown) diabetes (unknown) (no (unknown) (unknown) Narrative: (units (unk nown) date) unknown) (unknown) (no (unknown) (unknown) Neut # (Auto) (units ( unknown) date) 6900 unknown) (unknown) (no (unknown) (unknown) Neut % (Auto) (units ( unknown) date) 64.0 unknown) (unknown) (no (unknown) (unknown) No Known Drug (units ( unknown) date) Allergies Allergy unknown) Verified 12/01/22 14:33 (unknown) (no (unknown) (unknown) OB HPI (units (unkno wn) date) unknown) (unknown) (no (unknown) (unknown) [facility] History + (units (unknown) date) Physical unknown) (unknown) (no (unknown) (unknown) Objective (units [...] stress disorder) () (unknown) (no (unknown) (unknown) Para: 0 (units (unkno wn) date) unknown) (unknown) (no (unknown) (unknown) Patient: (units (unkno wn) date) [facility] N unknown) MR#: [id number] (unknown) (no (unknown) (unknown) Plt Count 193 (units ( unknown) date) unknown) (unknown) (no (unknown) (unknown) Prostate cancer (units (unknown) date) unknown) (unknown) (no (unknown) (unknown) Provider: (units (unkn own) date) Chaka Flores unknown) (unknown) (no (unknown) (unknown) RBC 4.53 (units (unkno wn) date) unknown) (unknown) (no (unknown) (unknown) RBC Morphology (units (unknown) date) See below unknown) (unknown) (no (unknown) (unknown) RDW 27.3 H (units (unk nown) date) unknown) (unknown) (no (unknown) (unknown) Recurrent [...] (unknown) (unknown) Smoking Status: (units (unknown) date) Never smoker unknown) (unknown) (no (unknown) (unknown) Social History (units (unknown) date) (Reviewed unknown) 11/27/22 @ 20:32 by Chelsy Johns CNM) (unknown) (no (unknown) (unknown) Surgical History (units (unknown) date) (Reviewed unknown) 11/27/22 @ 20:32 by Chelsy Johns CNM) (unknown) (no (unknown) (unknown) Time Patient (units (u nknown) date) Seen: 22:50 unknown) (unknown) (no (unknown) (unknown) Type(s) of (units (unk nown) date) exercise: walking unknown) (unknown) (no (unknown) (unknown) WBC 10.9 (units (unkno wn) date) unknown) (unknown) (no (unknown) (unknown) [Embedded Image (units (unknown) date) Not Available] unknown) (unknown) (no (unknown) (unknown) alcohol intake: [...] (unknown) date) year weight has: unknown) other (kjcryrkrvw-68-39 lb) (unknown) (no (unknown) (unknown) education level: [...] family (mom smokes)) (unknown) (no (unknown) (unknown) sertraline 25 mg (units (unknown) date) tablet See Rx unknown) Instructions PO .COMPLEX 06/09/22 12/16/22 Rx (unknown) (no (unknown) (unknown) special mirella (units [...] detector in home: unknown) Yes Result panel 2415 (unknown) (no (unknown) (unknown) (no value) (units (unk nown) date) unknown) (unknown) (no (unknown) (unknown) #60 tabs (units (unkno wn) date) unknown) (unknown) (no (unknown) (unknown) 12/16/22 (units (unkno wn) date) 12/16/22 unknown) (unknown) (no (unknown) (unknown) 12/16/22 20:15 (units (unknown) date) unknown) (unknown) (no (unknown) (unknown) [id number] (units (unkno wn) date) unknown) (unknown) (no (unknown) (unknown) 20:15 20:15 (units (un known) date) unknown) (unknown) (no (unknown) (unknown) ADHD (units (unkno wn) date) unknown) (unknown) (no (unknown) (unknown) Acne (units (unkno wn) date) unknown) (unknown) (no (unknown) (unknown) Age/Sex: 22 / F (units (unknown) date) unknown) (unknown) (no (unknown) (unknown) Allergies (units (unkn own) date) unknown) (unknown) (no (unknown) (unknown) Allergy/AdvReac (units (unknown) date) Type Severity unknown) Reaction Status Date / Time (unknown) (no (unknown) (unknown) Anemia (-2020) (units (unknown) date) unknown) (unknown) (no (unknown) (unknown) Anesthesia (units (unk nown) date) unknown) (unknown) (no (unknown) (unknown) Anisocytosis 2+ (units (unknown) date) H unknown) (unknown) (no (unknown) (unknown) Antibody Screen (units (unknown) date) Negative unknown) (unknown) (no (unknown) (unknown) Anxiety (units (unkno wn) date) unknown) (unknown) (no (unknown) (unknown) Autism (units (unkno wn) date) unknown) (unknown) (no (unknown) (unknown) Baso # (Auto) 0 (units (unknown) date) unknown) (unknown) (no (unknown) (unknown) Baso % (Auto) (units ( unknown) date) 0.4 unknown) (unknown) (no (unknown) (unknown) Bipolar disorder (units (unknown) date) unknown) (unknown) (no (unknown) (unknown) Blood Type O (units (u nknown) date) Positive unknown) (unknown) (no (unknown) (unknown) Brother Anxiety (units (unknown) date) unknown) (unknown) (no (unknown) (unknown) Cancer (units (unkno wn) date) unknown) (unknown) (no (unknown) (unknown) Chief complaint: (units (unknown) date) IUP, 38+6 wks unknown) EGA, Xtreme mat. discomfort, GBS (unknown) (no (unknown) (unknown) : 2000 (units (unknown) date) Acct:[id number] unknown) (unknown) (no (unknown) (unknown) Date Patient (units (u nknown) date) Seen: 12/16/22 unknown) (unknown) (no (unknown) (unknown) Date of Service: (units (unknown) date) 12/16/22 unknown) (unknown) (no (unknown) (unknown) Date of (units (unkno wn) date) admission: unknown) 12/16/22 (unknown) (no (unknown) (unknown) Date/Time (units (unkn own) date) unknown) (unknown) (no (unknown) (unknown) Depression (units (unk nown) date) unknown) (unknown) (no (unknown) (unknown) Saima N Sites (units (unknown) date) is a 22 year old unknown) TIFFANIE 12/24/2022 admitted now at 38+6 weeks (unknown) (no (unknown) (unknown) Diabetes (units (unkno wn) date) mellitus unknown) (unknown) (no (unknown) (unknown) EGA for (units (unkno wn) date) ripening/inductio unknown) n due to incapacitating left sided hip pain. (unknown) (no (unknown) (unknown) Eos # (Auto) 0 (units (unknown) date) unknown) (unknown) (no (unknown) (unknown) Eos % (Auto) 0.4 (units (unknown) date) L unknown) (unknown) (no (unknown) (unknown) Estimated Date (units (unknown) date) of Delivery: unknown) 12/24/22 (unknown) (no (unknown) (unknown) Estimated (units (unkn own) date) Gestational Age unknown) (weeks): 38+6 (unknown) (no (unknown) (unknown) Family History (units (unknown) date) (Reviewed unknown) 11/27/22 @ 20:32 by Chelsy Johns CNM) (unknown) (no (unknown) (unknown) Father Diabetes (units (unknown) date) mellitus unknown) (unknown) (no (unknown) (unknown) Grandfather (units (un known) date) Diabetes mellitus unknown) (unknown) (no (unknown) (unknown) Grandfather (units (un known) date) Family unknown) estrangement (unknown) (no (unknown) (unknown) Grandmother (units (un known) date) Cancer unknown) (unknown) (no (unknown) (unknown) Grandmother (units (un known) date) Diabetes unknown) mellitus (unknown) (no (unknown) (unknown) : 5 (units (unk nown) date) unknown) (unknown) (no (unknown) (unknown) H/O hand surgery (units (unknown) date) unknown) (unknown) (no (unknown) (unknown) Hct 36.7 (units (unkno wn) date) unknown) (unknown) (no (unknown) (unknown) Hgb 12.2 (units (unkno wn) date) unknown) (unknown) (no (unknown) (unknown) History of (units (unk nown) date) Present Condition unknown) 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 (unknown) (no (unknown) (unknown) History of (units (unk nown) date) removal of skin unknown) mole (unknown) (no (unknown) (unknown) Home Medications (units (unknown) date) and Allergies unknown) (unknown) (no (unknown) (unknown) Home Medications (units (unknown) date) unknown) (unknown) (no (unknown) (unknown) Hyperlipidemia (units (unknown) date) unknown) (unknown) (no (unknown) (unknown) Hypertension (units (u nknown) date) unknown) (unknown) (no (unknown) (unknown) [facility] (units (unknown) date) [address] unknown) [place] [address] (unknown) (no (unknown) (unknown) Laboratory (units (unk nown) date) Results - last 24 unknown) hr (unknown) (no (unknown) (unknown) Labs (units (unkno wn) date) unknown) (unknown) (no (unknown) (unknown) Labs: (units (unkno wn) date) unknown) (unknown) (no (unknown) (unknown) Lung cancer (units (un known) date) unknown) (unknown) (no (unknown) (unknown) Lymph # (Auto) (units (unknown) date) 2900 unknown) (unknown) (no (unknown) (unknown) Lymph % (Auto) (units (unknown) date) 26.3 unknown) (unknown) (no (unknown) (unknown) MCH 26.8 (units (unkno wn) date) unknown) (unknown) (no (unknown) (unknown) MCHC 33.2 (units (unkn own) date) unknown) (unknown) (no (unknown) (unknown) MCV 80.9 (units (unkno wn) date) unknown) (unknown) (no (unknown) (unknown) Medical History (units (unknown) date) (Reviewed unknown) 11/27/22 @ 20:32 by Chelsy Johns CNM) (unknown) (no (unknown) (unknown) Medication (units (unk nown) date) Instructions unknown) Recorded Confirmed Type (unknown) (no (unknown) (unknown) Meds (units (unkno wn) date) unknown) (unknown) (no (unknown) (unknown) Mental health (units ( unknown) date) problem unknown) (unknown) (no (unknown) (unknown) Todd # (Auto) (units ( unknown) date) 1000 H unknown) (unknown) (no (unknown) (unknown) Todd % (Auto) (units ( unknown) date) 8.9 unknown) (unknown) (no (unknown) (unknown) Mother (units (unkno wn) date) Gestational unknown) diabetes (unknown) (no (unknown) (unknown) Narrative: (units (unk nown) date) unknown) (unknown) (no (unknown) (unknown) Neut # (Auto) (units ( unknown) date) 6900 unknown) (unknown) (no (unknown) (unknown) Neut % (Auto) (units ( unknown) date) 64.0 unknown) (unknown) (no (unknown) (unknown) No Known Drug (units ( unknown) date) Allergies Allergy unknown) Verified 12/01/22 14:33 (unknown) (no (unknown) (unknown) OB HPI (units (unkno wn) date) unknown) (unknown) (no (unknown) (unknown) [facility] History + (units (unknown) date) Physical unknown) (unknown) (no (unknown) (unknown) Objective (units [...] stress disorder) () (unknown) (no (unknown) (unknown) Para: 0 (units (unkno wn) date) unknown) (unknown) (no (unknown) (unknown) Patient: (units (unkno wn) date) Sites,Saima N unknown) MR#: [id number] (unknown) (no (unknown) (unknown) Plt Count 193 (units ( unknown) date) unknown) (unknown) (no (unknown) (unknown) Prostate cancer (units (unknown) date) unknown) (unknown) (no (unknown) (unknown) Provider: (units (unkn own) date) Chaka Flores unknown) (unknown) (no (unknown) (unknown) RBC 4.53 (units (unkno wn) date) unknown) (unknown) (no (unknown) (unknown) RBC Morphology (units (unknown) date) See below unknown) (unknown) (no (unknown) (unknown) RDW 27.3 H (units (unk nown) date) unknown) (unknown) (no (unknown) (unknown) Recurrent [...] (unknown) (unknown) Smoking Status: (units (unknown) date) Never smoker unknown) (unknown) (no (unknown) (unknown) Social History (units (unknown) date) (Reviewed unknown) 11/27/22 @ 20:32 by Chelsy Johns CNM) (unknown) (no (unknown) (unknown) Surgical History (units (unknown) date) (Reviewed unknown) 11/27/22 @ 20:32 by Chelsy Johns CNM) (unknown) (no (unknown) (unknown) Time Patient (units (u nknown) date) Seen: 22:50 unknown) (unknown) (no (unknown) (unknown) Type(s) of (units (unk nown) date) exercise: walking unknown) (unknown) (no (unknown) (unknown) WBC 10.9 (units (unkno wn) date) unknown) (unknown) (no (unknown) (unknown) [Embedded Image (units (unknown) date) Not Available] unknown) (unknown) (no (unknown) (unknown) alcohol intake: [...] (unknown) date) year weight has: unknown) other ([id number] lb) (unknown) (no (unknown) (unknown) education level: [...] family (mom smokes)) (unknown) (no (unknown) (unknown) sertraline 25 mg (units (unknown) date) tablet See Rx unknown) Instructions PO .COMPLEX 06/09/22 12/16/22 Rx (unknown) (no (unknown) (unknown) special mirella (units [...] detector in home: unknown) Yes Result panel [id number] (unknown) (no (unknown) (unknown) (no value) (units (unk nown) date) unknown) (unknown) (no (unknown) (unknown) #60 tabs (units (unkno wn) date) unknown) (unknown) (no (unknown) (unknown) 12/16/22 (units (unkno wn) date) 12/16/22 unknown) (unknown) (no (unknown) (unknown) 12/16/22 20:15 (units (unknown) date) unknown) (unknown) (no (unknown) (unknown) [id number] (units (unkno wn) date) unknown) (unknown) (no (unknown) (unknown) 20:15 20:15 (units (un known) date) unknown) (unknown) (no (unknown) (unknown) ADHD (units (unkno wn) date) unknown) (unknown) (no (unknown) (unknown) Acne (units (unkno wn) date) unknown) (unknown) (no (unknown) (unknown) Age/Sex: 22 / F (units (unknown) date) unknown) (unknown) (no (unknown) (unknown) Allergies (units (unkn own) date) unknown) (unknown) (no (unknown) (unknown) Allergy/AdvReac (units (unknown) date) Type Severity unknown) Reaction Status Date / Time (unknown) (no (unknown) (unknown) Anemia (-2020) (units (unknown) date) unknown) (unknown) (no (unknown) (unknown) Anesthesia (units (unk nown) date) unknown) (unknown) (no (unknown) (unknown) Anisocytosis 2+ (units (unknown) date) H unknown) (unknown) (no (unknown) (unknown) Antibody Screen (units (unknown) date) Negative unknown) (unknown) (no (unknown) (unknown) Anxiety (units (unkno wn) date) unknown) (unknown) (no (unknown) (unknown) Autism (units (unkno wn) date) unknown) (unknown) (no (unknown) (unknown) Baso # (Auto) 0 (units (unknown) date) unknown) (unknown) (no (unknown) (unknown) Baso % (Auto) (units ( unknown) date) 0.4 unknown) (unknown) (no (unknown) (unknown) Bipolar disorder (units (unknown) date) unknown) (unknown) (no (unknown) (unknown) Blood Type O (units (u nknown) date) Positive unknown) (unknown) (no (unknown) (unknown) Brother Anxiety (units (unknown) date) unknown) (unknown) (no (unknown) (unknown) Cancer (units (unkno wn) date) unknown) (unknown) (no (unknown) (unknown) Chief complaint: (units (unknown) date) IUP, 38+6 wks unknown) EGA, Xtreme mat. discomfort, GBS (unknown) (no (unknown) (unknown) : 2000 (units (unknown) date) Acct:[id number] unknown) (unknown) (no (unknown) (unknown) Date Patient (units (u nknown) date) Seen: 12/16/22 unknown) (unknown) (no (unknown) (unknown) Date of Service: (units (unknown) date) 12/16/22 unknown) (unknown) (no (unknown) (unknown) Date of (units (unkno wn) date) admission: unknown) 12/16/22 (unknown) (no (unknown) (unknown) Date/Time (units (unkn own) date) unknown) (unknown) (no (unknown) (unknown) Dating criteria: (units (unknown) date) LMP confirmed by unknown) 1st trimester US (unknown) (no (unknown) (unknown) Depression (units (unk nown) date) unknown) (unknown) (no (unknown) (unknown) Saima N Sites (units (unknown) date) is a 22 year old unknown) TIFFANIE 12/24/2022 admitted now at 38+6 weeks (unknown) (no (unknown) (unknown) Diabetes (units (unkno wn) date) mellitus unknown) (unknown) (no (unknown) (unknown) EGA for (units (unkno wn) date) ripening/inductio unknown) n due to incapacitating left sided hip pain. Aside (unknown) (no (unknown) (unknown) Eos # (Auto) 0 (units (unknown) date) unknown) (unknown) (no (unknown) (unknown) Eos % (Auto) 0.4 (units (unknown) date) L unknown) (unknown) (no (unknown) (unknown) Estimated Date (units (unknown) date) of Delivery: unknown) 12/24/22 (unknown) (no (unknown) (unknown) Estimated (units (unkn own) date) Gestational Age unknown) (weeks): 38+6 (unknown) (no (unknown) (unknown) Family History (units (unknown) date) (Reviewed unknown) 11/27/22 @ 20:32 by Chelsy Johns CNM) (unknown) (no (unknown) (unknown) Father Diabetes (units (unknown) date) mellitus unknown) (unknown) (no (unknown) (unknown) GBS is positive. (units (unknown) date) unknown) (unknown) (no (unknown) (unknown) Grandfather (units (un known) date) Diabetes mellitus unknown) (unknown) (no (unknown) (unknown) Grandfather (units (un known) date) Family unknown) estrangement (unknown) (no (unknown) (unknown) Grandmother (units (un known) date) Cancer unknown) (unknown) (no (unknown) (unknown) Grandmother (units (un known) date) Diabetes unknown) mellitus (unknown) (no (unknown) (unknown) : 5 (units (unk nown) date) unknown) (unknown) (no (unknown) (unknown) H/O hand surgery (units (unknown) date) unknown) (unknown) (no (unknown) (unknown) Hct 36.7 (units (unkno wn) date) unknown) (unknown) (no (unknown) (unknown) Hgb 12.2 (units (unkno wn) date) unknown) (unknown) (no (unknown) (unknown) History of (units (unk nown) date) Present Condition unknown) (unknown) (no (unknown) (unknown) History of (units (unk nown) date) Present unknown) 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 (unknown) (no (unknown) (unknown) History of (units (unk nown) date) removal of skin unknown) mole (unknown) (no (unknown) (unknown) Home Medications (units (unknown) date) and Allergies unknown) (unknown) (no (unknown) (unknown) Home Medications (units (unknown) date) unknown) (unknown) (no (unknown) (unknown) Hyperlipidemia (units (unknown) date) unknown) (unknown) (no (unknown) (unknown) Hypertension (units (u nknown) date) unknown) (unknown) (no (unknown) (unknown) Indication for (units (unknown) date) induction OB: unknown) other (Severe, unrelenting left hip pain) (unknown) (no (unknown) (unknown) Indications (units (un known) date) unknown) (unknown) (no (unknown) (unknown) [facility] (units (unknown) date) [address] unknown) [place] [address] (unknown) (no (unknown) (unknown) Laboratory (units (unk nown) date) Results - last 24 unknown) hr (unknown) (no (unknown) (unknown) Labs (units (unkno wn) date) unknown) (unknown) (no (unknown) (unknown) Labs: (units (unkno wn) date) unknown) (unknown) (no (unknown) (unknown) Lung cancer (units (un known) date) unknown) (unknown) (no (unknown) (unknown) Lymph # (Auto) (units (unknown) date) 2900 unknown) (unknown) (no (unknown) (unknown) Lymph % (Auto) (units (unknown) date) 26.3 unknown) (unknown) (no (unknown) (unknown) MCH 26.8 (units (unkno wn) date) unknown) (unknown) (no (unknown) (unknown) MCHC 33.2 (units (unkn own) date) unknown) (unknown) (no (unknown) (unknown) MCV 80.9 (units (unkno wn) date) unknown) (unknown) (no (unknown) (unknown) Medical History (units (unknown) date) (Reviewed unknown) 11/27/22 @ 20:32 by Chelsy Johns CNM) (unknown) (no (unknown) (unknown) Medical (units (unkno wn) date) complications: unknown) none (unknown) (no (unknown) (unknown) Medication (units (unk nown) date) Instructions unknown) Recorded Confirmed Type (unknown) (no (unknown) (unknown) Meds (units (unkno wn) date) unknown) (unknown) (no (unknown) (unknown) Mental health (units ( unknown) date) problem unknown) (unknown) (no (unknown) (unknown) Todd # (Auto) (units ( unknown) date) 1000 H unknown) (unknown) (no (unknown) (unknown) Todd % (Auto) (units ( unknown) date) 8.9 unknown) (unknown) (no (unknown) (unknown) Mother (units (unkno wn) date) Gestational unknown) diabetes (unknown) (no (unknown) (unknown) Narrative: (units (unk nown) date) unknown) (unknown) (no (unknown) (unknown) Neut # (Auto) (units ( unknown) date) 6900 unknown) (unknown) (no (unknown) (unknown) Neut % (Auto) (units ( unknown) date) 64.0 unknown) (unknown) (no (unknown) (unknown) OB HPI (units (unkno wn) date) unknown) (unknown) (no (unknown) (unknown) [facility] History + (units (unknown) date) Physical unknown) (unknown) (no (unknown) (unknown) Objective (units (unkn own) date) unknown) (unknown) (no (unknown) (unknown) Obstetrical (units (un known) date) complications: unknown) none (unknown) (no (unknown) (unknown) Ovarian cyst (units (u nknown) date) () unknown) (unknown) (no (unknown) (unknown) PFSH (units (unkno wn) date) unknown) (unknown) (no (unknown) (unknown) PID (acute (units (unk nown) date) pelvic unknown) inflammatory disease) (unknown) (no (unknown) (unknown) PTSD (units (unkno wn) date) (post-traumatic unknown) stress disorder) () (unknown) (no (unknown) (unknown) Para: 0 (units (unkno wn) date) unknown) (unknown) (no (unknown) (unknown) Patient: (units (unkno wn) date) [facility] N unknown) MR#: [id number] (unknown) (no (unknown) (unknown) Plt Count 193 (units ( unknown) date) unknown) (unknown) (no (unknown) (unknown) care: (units (unknown) date) good care unknown) (unknown) (no (unknown) (unknown) Prostate cancer (units (unknown) date) unknown) (unknown) (no (unknown) (unknown) Provider: (units (unkn own) date) Chaka Flores unknown) (unknown) (no (unknown) (unknown) RBC 4.53 (units (unkno wn) date) unknown) (unknown) (no (unknown) (unknown) RBC Morphology (units (unknown) date) See below unknown) (unknown) (no (unknown) (unknown) RDW 27.3 H (units (unk nown) date) unknown) (unknown) (no (unknown) (unknown) Recurrent [...] (unknown) (unknown) Smoking Status: (units (unknown) date) Never smoker unknown) (unknown) (no (unknown) (unknown) Social History (units (unknown) date) (Reviewed unknown) 11/27/22 @ 20:32 by Chelsy Johns CNM) (unknown) (no (unknown) (unknown) Surgical History (units (unknown) date) (Reviewed unknown) 11/27/22 @ 20:32 by Chesly Johns CNM) (unknown) (no (unknown) (unknown) Time Patient (units (u nknown) date) Seen: 22:50 unknown) (unknown) (no (unknown) (unknown) Type(s) of (units (unk nown) date) exercise: walking unknown) (unknown) (no (unknown) (unknown) Ultrasounds: (units (u nknown) date) normal 1st unknown) trimester US and normal mid trimester US (unknown) (no (unknown) (unknown) WBC 10.9 (units (unkno wn) date) unknown) (unknown) (no (unknown) (unknown) [Embedded Image (units (unknown) date) Not Available] unknown) (unknown) (no (unknown) (unknown) alcohol intake: (units (unknown) date) never unknown) (unknown) (no (unknown) (unknown) been largely (units (u nknown) date) uneventful with unknown) firm dating and appropriate milestones throughout. (unknown) (no (unknown) (unknown) caffeine: Yes (units ( unknown) date) (occasionally, unknown) aware of 200mg limit) (unknown) (no (unknown) (unknown) cantaloupe (units (unk nown) date) AdvReac Mild Rash unknown) Verified 12/17/22 03:58 (unknown) (no (unknown) (unknown) carbon monox (units [...] (unknown) date) year weight has: unknown) other ([id number] lb) (unknown) (no (unknown) (unknown) education level: (units (unknown) date) high school unknown) (unknown) (no (unknown) (unknown) fire (units (unkno wn) date) 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 unknown) home: Yes (unknown) (no (unknown) (unknown) firearms in (units (un known) date) home: Yes unknown) firearms unloaded and locked: Yes (unknown) (no (unknown) (unknown) from some (units (unkn own) date) premature unknown) contractions in the 3rd trimester, her course has (unknown) (no (unknown) (unknown) household (units (unkn [...] family (mom smokes)) (unknown) (no (unknown) (unknown) sertraline 25 mg (units (unknown) date) tablet See Rx unknown) Instructions PO .COMPLEX 06/09/22 12/16/22 Rx (unknown) (no (unknown) (unknown) special mirella (units [...] detector in home: unknown) Yes Result panel [id number] (unknown) (no (unknown) (unknown) (no value) (units (unk nown) date) unknown) (unknown) (no (unknown) (unknown) #60 tabs (units (unkno wn) date) unknown) (unknown) (no (unknown) (unknown) -: Antibody screen: (unit s (unknown) date) negative, GBS unknown) status: positive, HBsAG: negative, HIV: (unknown) (no (unknown) (unknown) -: Chlamydia (units (u nknown) date) screen: not detected unknown) and Gonorrhea screen: not detected (unknown) (no (unknown) (unknown) -: Rubella: immune (units (unknown) date) and Varicella: not unknown) immune (unknown) (no (unknown) (unknown) 12/16/22 12/16/22 (units (unknown) date) unknown) (unknown) (no (unknown) (unknown) 12/16/22 20:15 (units (unknown) date) unknown) (unknown) (no (unknown) (unknown) [id number] (units (unkno wn) date) unknown) (unknown) (no (unknown) (unknown) 1 hr GTT: 88 (units (u nknown) date) unknown) (unknown) (no (unknown) (unknown) 20:15 20:15 (units (un known) date) unknown) (unknown) (no (unknown) (unknown) ADHD (units (unkno wn) date) unknown) (unknown) (no (unknown) (unknown) Acne (units (unkno wn) date) unknown) (unknown) (no (unknown) (unknown) Age/Sex: 22 / F (units (unknown) date) unknown) (unknown) (no (unknown) (unknown) Allergies (units (unkn own) date) unknown) (unknown) (no (unknown) (unknown) Allergy/AdvReac (units (unknown) date) Type Severity unknown) Reaction Status Date / Time (unknown) (no (unknown) (unknown) Anemia (-2020) (units (unknown) date) unknown) (unknown) (no (unknown) (unknown) Anesthesia (units (unk nown) date) unknown) (unknown) (no (unknown) (unknown) Anisocytosis 2+ H (units (unknown) date) unknown) (unknown) (no (unknown) (unknown) Antibody Screen (units (unknown) date) Negative unknown) (unknown) (no (unknown) (unknown) Anxiety (units (unkno wn) date) unknown) (unknown) (no (unknown) (unknown) Auscultation: clear (unit s (unknown) date) to auscultation unknown) bilaterally (unknown) (no (unknown) (unknown) Autism (units (unkno wn) date) unknown) (unknown) (no (unknown) (unknown) Baseline (units (unknown) date) heart rate: 130 unknown) (unknown) (no (unknown) (unknown) Baso # (Auto) 0 (units (unknown) date) unknown) (unknown) (no (unknown) (unknown) Baso % (Auto) 0.4 (units (unknown) date) unknown) (unknown) (no (unknown) (unknown) Bipolar disorder (units (unknown) date) unknown) (unknown) (no (unknown) (unknown) Mcbride score: 9 (units (unknown) date) unknown) (unknown) (no (unknown) (unknown) Blood Type O (units (u nknown) date) Positive unknown) (unknown) (no (unknown) (unknown) Blood type: O (+) (units (unknown) date) positive unknown) (unknown) (no (unknown) (unknown) Brother Anxiety (units (unknown) date) unknown) (unknown) (no (unknown) (unknown) Cancer (units (unkno wn) date) unknown) (unknown) (no (unknown) (unknown) Cardio (units (unkno wn) date) unknown) (unknown) (no (unknown) (unknown) Category of (units (un known) date) Tracing: Reactive unknown) (unknown) (no (unknown) (unknown) Cell-free DNA: (units (unknown) date) unknown) (unknown) (no (unknown) (unknown) Chief complaint: (units (unknown) date) IUP, 38+6 wks EGA, unknown) Xtreme mat. discomfort, GBS (unknown) (no (unknown) (unknown) Consistency: soft (units (unknown) date) unknown) (unknown) (no (unknown) (unknown) Contraction (units (un known) date) Frequency (minutes): unknown) 4 (unknown) (no (unknown) (unknown) : 2000 (units (unknown) date) Acct:[id number] unknown) (unknown) (no (unknown) (unknown) Date Patient Seen: (units (unknown) date) 12/16/22 unknown) (unknown) (no (unknown) (unknown) Date of Service: (units (unknown) date) 12/16/22 unknown) (unknown) (no (unknown) (unknown) Date of admission: (units (unknown) date) 12/16/22 unknown) (unknown) (no (unknown) (unknown) Date/Time (units (unkn own) date) unknown) (unknown) (no (unknown) (unknown) Dating criteria: (units (unknown) date) LMP confirmed by 1st unknown) trimester US (unknown) (no (unknown) (unknown) Depression (units (unk nown) date) unknown) (unknown) (no (unknown) (unknown) Saima N Sites is (units (unknown) date) a 22 year old unknown) TIFFANIE 12/24/2022 admitted now at 38+6 weeks (unknown) (no (unknown) (unknown) Diabetes mellitus (units (unknown) date) unknown) (unknown) (no (unknown) (unknown) Dilation (cm): 1 (units (unknown) date) unknown) (unknown) (no (unknown) (unknown) Dilation: 1-2 cm (units (unknown) date) unknown) (unknown) (no (unknown) (unknown) EGA for (units (unkno wn) date) ripening/induction unknown) due to incapacitating left sided hip pain. Aside (unknown) (no (unknown) (unknown) Effacement (%): 80 (units (unknown) date) unknown) (unknown) (no (unknown) (unknown) Effacement: >/=80% (units (unknown) date) unknown) (unknown) (no (unknown) (unknown) Effort + (units (unkno wn) date) Inspection: normal unknown) respiratory effort and able to speak in complete (unknown) (no (unknown) (unknown) Eos # (Auto) 0 (units (unknown) date) unknown) (unknown) (no (unknown) (unknown) Eos % (Auto) 0.4 L (units (unknown) date) unknown) (unknown) (no (unknown) (unknown) Estimated Date of (units (unknown) date) Delivery: 12/24/22 unknown) (unknown) (no (unknown) (unknown) Estimated (units (unkn own) date) Gestational Age unknown) (weeks): 38+6 (unknown) (no (unknown) (unknown) Evaluation (units (unk nown) date) unknown) (unknown) (no (unknown) (unknown) Extremities (units (un known) date) unknown) (unknown) (no (unknown) (unknown) Eyes (units (unkno wn) date) unknown) (unknown) (no (unknown) (unknown) Family History (units (unknown) date) (Reviewed 11/27/22 @ unknown) 20:32 by Chelsy Johns CNM) (unknown) (no (unknown) (unknown) Father Diabetes (units (unknown) date) mellitus unknown) (unknown) (no (unknown) (unknown) Monitor (units ( unknown) date) Decelerations: unknown) Absent (unknown) (no (unknown) (unknown) Status: (units ( unknown) date) Category l unknown) (unknown) (no (unknown) (unknown) monitor (units ( unknown) date) accelerations: unknown) Present (unknown) (no (unknown) (unknown) station: -1 (units (unknown) date) unknown) (unknown) (no (unknown) (unknown) GBS is positive. (units (unknown) date) unknown) (unknown) (no (unknown) (unknown) GI (units (unkno wn) date) unknown) (unknown) (no (unknown) (unknown) General: appearance (unit s (unknown) date) normal, both eyes unknown) and all related structures (unknown) (no (unknown) (unknown) Grandfather (units (un known) date) Diabetes mellitus unknown) (unknown) (no (unknown) (unknown) Grandfather Family (units (unknown) date) estrangement unknown) (unknown) (no (unknown) (unknown) Grandmother Cancer (units (unknown) date) unknown) (unknown) (no (unknown) (unknown) Grandmother (units (un known) date) Diabetes unknown) mellitus (unknown) (no (unknown) (unknown) : 5 (units (unk nown) date) unknown) (unknown) (no (unknown) (unknown) H/O hand surgery (units (unknown) date) unknown) (unknown) (no (unknown) (unknown) HCAB: negative (units (unknown) date) unknown) (unknown) (no (unknown) (unknown) HCT: 36.7 (units (unkn own) date) unknown) (unknown) (no (unknown) (unknown) HENMT (units (unkno wn) date) unknown) (unknown) (no (unknown) (unknown) Hct 36.7 (units (unkno wn) date) unknown) (unknown) (no (unknown) (unknown) Head: normal to (units (unknown) date) inspection, unknown) normocephalic and atraumatic (unknown) (no (unknown) (unknown) Heart Sounds: S1 (units (unknown) date) normal, S2 normal unknown) and no murmurs (unknown) (no (unknown) (unknown) Hgb 12.2 (units (unkno wn) date) unknown) (unknown) (no (unknown) (unknown) History of Present (units (unknown) date) Condition unknown) (unknown) (no (unknown) (unknown) History of Present (units (unknown) date) unknown) 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 (unknown) (no (unknown) (unknown) History of removal (units (unknown) date) of skin mole unknown) (unknown) (no (unknown) (unknown) History: SAB x4 (units (unknown) date) unknown) (unknown) (no (unknown) (unknown) Home Medications (units (unknown) date) and Allergies unknown) (unknown) (no (unknown) (unknown) Home Medications (units (unknown) date) unknown) (unknown) (no (unknown) (unknown) Hyperlipidemia (units (unknown) date) unknown) (unknown) (no (unknown) (unknown) Hypertension (units (u nknown) date) unknown) (unknown) (no (unknown) (unknown) Indication for (units (unknown) date) induction OB: other unknown) (Severe, unrelenting left hip pain) (unknown) (no (unknown) (unknown) Indications (units (un known) date) unknown) (unknown) (no (unknown) (unknown) Inspection: normal (units (unknown) date) to inspection unknown) (unknown) (no (unknown) (unknown) [facility] (units (unknown) date) [address] unknown) [place] [id number] (unknown) (no (unknown) (unknown) Laboratory Results (units (unknown) date) - last 24 hr unknown) (unknown) (no (unknown) (unknown) Labs (units (unkno wn) date) unknown) (unknown) (no (unknown) (unknown) Labs: (units (unkno wn) date) unknown) (unknown) (no (unknown) (unknown) Low risk female (units (unknown) date) unknown) (unknown) (no (unknown) (unknown) Lower extremity: (units (unknown) date) Yes normal to unknown) inspection (unknown) (no (unknown) (unknown) Lung cancer (units (un known) date) unknown) (unknown) (no (unknown) (unknown) Lymph # (Auto) 2900 (unit s (unknown) date) unknown) (unknown) (no (unknown) (unknown) Lymph % (Auto) 26.3 (unit s (unknown) date) unknown) (unknown) (no (unknown) (unknown) MCH 26.8 (units (unkno wn) date) unknown) (unknown) (no (unknown) (unknown) MCHC 33.2 (units (unkn own) date) unknown) (unknown) (no (unknown) (unknown) MCV 80.9 (units (unkno wn) date) unknown) (unknown) (no (unknown) (unknown) Medical History (units (unknown) date) (Reviewed 11/27/22 @ unknown) 20:32 by Chelsy Johns CNM) (unknown) (no (unknown) (unknown) Medical (units (unkno wn) date) complications: none unknown) (unknown) (no (unknown) (unknown) Medication (units (unk nown) date) Instructions unknown) Recorded Confirmed Type (unknown) (no (unknown) (unknown) Meds (units (unkno wn) date) unknown) (unknown) (no (unknown) (unknown) Mental health (units ( unknown) date) problem unknown) (unknown) (no (unknown) (unknown) Todd # (Auto) 1000 (units (unknown) date) H unknown) (unknown) (no (unknown) (unknown) Todd % (Auto) 8.9 (units (unknown) date) unknown) (unknown) (no (unknown) (unknown) Mother Gestational (units (unknown) date) diabetes unknown) (unknown) (no (unknown) (unknown) Narrative: (units (unk nown) date) unknown) (unknown) (no (unknown) (unknown) Neut # (Auto) 6900 (units (unknown) date) unknown) (unknown) (no (unknown) (unknown) Neut % (Auto) 64.0 (units (unknown) date) unknown) (unknown) (no (unknown) (unknown) OB Exam (units (unkno wn) date) unknown) (unknown) (no (unknown) (unknown) OB HPI (units (unkno wn) date) unknown) (unknown) (no (unknown) (unknown) [facility] History + (units (unknown) date) Physical unknown) (unknown) (no (unknown) (unknown) Objective (units (unkn own) date) unknown) (unknown) (no (unknown) (unknown) Obstetrical (units (un known) date) complications: none unknown) (unknown) (no (unknown) (unknown) Ovarian cyst (units (u nknown) date) () unknown) (unknown) (no (unknown) (unknown) PAP: Normal (units (un known) date) unknown) (unknown) (no (unknown) (unknown) PFSH (units (unkno wn) date) unknown) (unknown) (no (unknown) (unknown) PID (acute pelvic (units (unknown) date) inflammatory unknown) disease) (unknown) (no (unknown) (unknown) PTSD (units (unkno wn) date) (post-traumatic unknown) stress disorder) () (unknown) (no (unknown) (unknown) Palpation: Yes soft (unit s (unknown) date) and Yes no unknown) hepatosplenomegaly (unknown) (no (unknown) (unknown) Para: 0 (units (unkno wn) date) unknown) (unknown) (no (unknown) (unknown) Patient: (units (unkno wn) date) Sites,Siama N MR#: unknown) M00 (unknown) (no (unknown) (unknown) Plt Count 193 (units ( unknown) date) unknown) (unknown) (no (unknown) (unknown) Position of cervix: (unit s (unknown) date) mid unknown) (unknown) (no (unknown) (unknown) Preadmission Labs (units (unknown) date) unknown) (unknown) (no (unknown) (unknown) care: good (unit s (unknown) date) care unknown) (unknown) (no (unknown) (unknown) Prior (units (unkno wn) date) (ies) unknown) (unknown) (no (unknown) (unknown) Problem-specific (units (unknown) date) ROS positives unknown) included in HPI (unknown) (no (unknown) (unknown) Prostate cancer (units (unknown) date) unknown) (unknown) (no (unknown) (unknown) Provider: (units (unkn own) date) Chaka Flores MD unknown) (unknown) (no (unknown) (unknown) Quad screen: Normal (unit s (unknown) date) (AFP screening is unknown) negative ) (unknown) (no (unknown) (unknown) RBC 4.53 (units (unkno wn) date) unknown) (unknown) (no (unknown) (unknown) RBC Morphology See (units (unknown) date) below unknown) (unknown) (no (unknown) (unknown) RDW 27.3 H (units (unk nown) date) unknown) (unknown) (no (unknown) (unknown) Rate: regular rate (units (unknown) date) unknown) 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 (unknown) (no (unknown) (unknown) Resp (units (unkno wn) date) unknown) (unknown) (no (unknown) (unknown) Review of Systems (units (unknown) date) unknown) (unknown) (no (unknown) (unknown) Rhythm: regular (units (unknown) date) rhythm unknown) (unknown) (no (unknown) (unknown) Schizophrenia (units ( unknown) date) unknown) (unknown) (no (unknown) (unknown) Seizures (-2002) (units (unknown) date) unknown) (unknown) (no (unknown) (unknown) Signed By: (units (unk nown) date) unknown) (unknown) (no (unknown) (unknown) Sister Anxiety (units (unknown) date) unknown) (unknown) (no (unknown) (unknown) Sister Depression (units (unknown) date) unknown) (unknown) (no (unknown) (unknown) Smoking Status: (units (unknown) date) Never smoker unknown) (unknown) (no (unknown) (unknown) Social History (units (unknown) date) (Reviewed 11/27/22 @ unknown) 20:32 by Chelsy Johns CNM) (unknown) (no (unknown) (unknown) Surgical History (units (unknown) date) (Reviewed 11/27/22 @ unknown) 20:32 by Chelsy Johns CNM) (unknown) (no (unknown) (unknown) Time Patient Seen: (units (unknown) date) 22:50 unknown) (unknown) (no (unknown) (unknown) Type(s) of (units (unk nown) date) exercise: walking unknown) (unknown) (no (unknown) (unknown) Ultrasounds: normal (unit s (unknown) date) 1st trimester US and unknown) normal mid trimester US (unknown) (no (unknown) (unknown) Uterine Contraction (unit s (unknown) date) Intensity: Moderate unknown) (unknown) (no (unknown) (unknown) Variability: (units (u nknown) date) Moderate (11-25) unknown) (unknown) (no (unknown) (unknown) WBC 10.9 (units (unkno wn) date) unknown) (unknown) (no (unknown) (unknown) [Embedded Image Not (unit s (unknown) date) Available] unknown) (unknown) (no (unknown) (unknown) alcohol intake: (units (unknown) date) never unknown) (unknown) (no (unknown) (unknown) been largely (units (u nknown) date) uneventful with firm unknown) dating and appropriate milestones throughout. (unknown) (no (unknown) (unknown) caffeine: Yes (units ( unknown) date) (occasionally, aware unknown) of 200mg limit) (unknown) (no (unknown) (unknown) cantaloupe AdvReac (units (unknown) date) Mild Rash Verified unknown) 12/17/22 03:58 (unknown) (no (unknown) (unknown) carbon monox (units (u nknown) date) detector in home: unknown) Yes (unknown) (no (unknown) (unknown) current (units (unkno wn) date) occupational unknown) exposures/hazards: No (unknown) (no (unknown) (unknown) daily servings (units (unknown) date) fruits/ve-4 unknown) (unknown) (no (unknown) (unknown) do you feel safe at (unit s (unknown) date) home: Yes unknown) (unknown) (no (unknown) (unknown) duration: 15-30 (units (unknown) date) minutes/day unknown) (unknown) (no (unknown) (unknown) during the past (units (unknown) date) year weight has: unknown) other ([id number] lb) (unknown) (no (unknown) (unknown) education level: (units (unknown) date) high school unknown) (unknown) (no (unknown) (unknown) fire extinguisher (units (unknown) date) in home: Yes unknown) (unknown) (no (unknown) (unknown) firearms in home: (units (unknown) date) Yes firearms unknown) unloaded and locked: Yes (unknown) (no (unknown) (unknown) from some premature (unit s (unknown) date) contractions in the unknown) 3rd trimester, her course has (unknown) (no (unknown) (unknown) household members: (units (unknown) date) spouse unknown) (unknown) (no (unknown) (unknown) housing: apartment (units (unknown) date) unknown) (unknown) (no (unknown) (unknown) lives (units (unkno wn) date) independently: Yes unknown) (unknown) (no (unknown) (unknown) marital status: (units (unknown) date) unknown) (unknown) (no (unknown) (unknown) negative and (units (u nknown) date) RPR/VDLR: negative unknown) (unknown) (no (unknown) (unknown) number of children: (unit s (unknown) date) 0 unknown) (unknown) (no (unknown) (unknown) occupational (units (u nknown) date) status: unemployed unknown) (unknown) (no (unknown) (unknown) pets and animals: (units (unknown) date) Yes (1 dog 1 cat; unknown) aware of toxo) (unknown) (no (unknown) (unknown) seatbelt use: (units ( unknown) date) always unknown) (unknown) (no (unknown) (unknown) second hand (units (un known) date) exposure: Yes (while unknown) visiting family (mom smokes)) (unknown) (no (unknown) (unknown) sentences (units (unkn own) date) unknown) (unknown) (no (unknown) (unknown) sertraline 25 mg (units (unknown) date) tablet See Rx unknown) Instructions PO .COMPLEX 06/09/22 12/16/22 Rx (unknown) (no (unknown) (unknown) special mirella (units ( unknown) date) needs: No unknown) (unknown) (no (unknown) (unknown) substance use type: (unit s (unknown) date) marijuana (quit when unknown) she learned she was ) (unknown) (no (unknown) (unknown) travel history: (units (unknown) date) recent (domestic unknown) only) (unknown) (no (unknown) (unknown) water heater temp (units (unknown) date) set < 120 deg: No unknown) (Will call landlord to adjust ) (unknown) (no (unknown) (unknown) well-balanced diet: (unit s (unknown) date) daily or most days unknown) (unknown) (no (unknown) (unknown) working smoke (units ( unknown) date) detector in home: unknown) Yes Result panel [id number] (unknown) (no (unknown) (unknown) (no value) (units (unk nown) date) unknown) (unknown) (no (unknown) (unknown) #60 tabs (units (unkno wn) date) unknown) (unknown) (no (unknown) (unknown) -: Antibody screen: (unit s (unknown) date) negative, GBS unknown) status: positive, HBsAG: negative, HIV: (unknown) (no (unknown) (unknown) -: Chlamydia (units (u nknown) date) screen: not detected unknown) and Gonorrhea screen: not detected (unknown) (no (unknown) (unknown) -: Rubella: immune (units (unknown) date) and Varicella: not unknown) immune (unknown) (no (unknown) (unknown) 12/16/22 12/16/22 (units (unknown) date) unknown) (unknown) (no (unknown) (unknown) 12/16/22 20:15 (units (unknown) date) unknown) (unknown) (no (unknown) (unknown) 12/17/22 0935 (units ( unknown) date) unknown) (unknown) (no (unknown) (unknown) [id number] (units (unkno wn) date) unknown) (unknown) (no (unknown) (unknown) 1 hr GTT: 88 (units (u nknown) date) unknown) (unknown) (no (unknown) (unknown) 1. Admit for (units (u nknown) date) ripening and unknown) induction due to hip pain (unknown) (no (unknown) (unknown) 1. Intrauterine (units (unknown) date) , 39+0 wks unknown) EGA (unknown) (no (unknown) (unknown) 2. See admission (units (unknown) date) orders unknown) (unknown) (no (unknown) (unknown) 2. Severe left hip (units (unknown) date) pain unknown) (unknown) (no (unknown) (unknown) 20:15 20:15 (units (un known) date) unknown) (unknown) (no (unknown) (unknown) 3. GBS positive (units (unknown) date) status unknown) (unknown) (no (unknown) (unknown) ADHD (units (unkno wn) date) unknown) (unknown) (no (unknown) (unknown) ASSESSMENT (units (unk nown) date) unknown) (unknown) (no (unknown) (unknown) Acne (units (unkno wn) date) unknown) (unknown) (no (unknown) (unknown) Age/Sex: 22 / F (units (unknown) date) unknown) (unknown) (no (unknown) (unknown) Allergies (units (unkn own) date) unknown) (unknown) (no (unknown) (unknown) Allergy/AdvReac (units (unknown) date) Type Severity unknown) Reaction Status Date / Time (unknown) (no (unknown) (unknown) Anemia () (units (unknown) date) unknown) (unknown) (no (unknown) (unknown) Anesthesia (units (unk nown) date) unknown) (unknown) (no (unknown) (unknown) Anisocytosis 2+ H (units (unknown) date) unknown) (unknown) (no (unknown) (unknown) Antibody Screen (units (unknown) date) Negative unknown) (unknown) (no (unknown) (unknown) Anxiety (units (unkno wn) date) unknown) (unknown) (no (unknown) (unknown) Assessment and Plan (unit s (unknown) date) narrative: unknown) (unknown) (no (unknown) (unknown) Assessment and Plan (unit s (unknown) date) unknown) (unknown) (no (unknown) (unknown) Auscultation: clear (unit s (unknown) date) to auscultation unknown) bilaterally (unknown) (no (unknown) (unknown) Autism (units (unkno wn) date) unknown) (unknown) (no (unknown) (unknown) Baseline (units (unknown) date) heart rate: 130 unknown) (unknown) (no (unknown) (unknown) Baso # (Auto) 0 (units (unknown) date) unknown) (unknown) (no (unknown) (unknown) Baso % (Auto) 0.4 (units (unknown) date) unknown) (unknown) (no (unknown) (unknown) Bipolar disorder (units (unknown) date) unknown) (unknown) (no (unknown) (unknown) Mcbride score: 9 (units (unknown) date) unknown) (unknown) (no (unknown) (unknown) Blood Pressure: (units (unknown) date) 112/64 unknown) (unknown) (no (unknown) (unknown) Blood Type O (units (u nknown) date) Positive unknown) (unknown) (no (unknown) (unknown) Blood type: O (+) (units (unknown) date) positive unknown) (unknown) (no (unknown) (unknown) Brother Anxiety (units (unknown) date) unknown) (unknown) (no (unknown) (unknown) Cancer (units (unkno wn) date) unknown) (unknown) (no (unknown) (unknown) Cardio (units (unkno wn) date) unknown) (unknown) (no (unknown) (unknown) Category of (units (un known) date) Tracing: Reactive unknown) (unknown) (no (unknown) (unknown) Cell-free DNA: (units (unknown) date) unknown) (unknown) (no (unknown) (unknown) Chief complaint: (units (unknown) date) IUP, 38+6 wks EGA, unknown) Xtreme mat. discomfort, GBS (unknown) (no (unknown) (unknown) Consistency: soft (units (unknown) date) unknown) (unknown) (no (unknown) (unknown) Contraction (units (un known) date) Frequency (minutes): unknown) 4 (unknown) (no (unknown) (unknown) : 2000 (units (unknown) date) Acct:[id number] unknown) (unknown) (no (unknown) (unknown) Date Patient Seen: (units (unknown) date) 12/16/22 unknown) (unknown) (no (unknown) (unknown) Date of Service: (units (unknown) date) 12/16/22 unknown) (unknown) (no (unknown) (unknown) Date of admission: (units (unknown) date) 12/16/22 unknown) (unknown) (no (unknown) (unknown) Date/Time (units (unkn own) date) unknown) (unknown) (no (unknown) (unknown) Dating criteria: (units (unknown) date) LMP confirmed by 1st unknown) trimester US (unknown) (no (unknown) (unknown) Depression (units (unk nown) date) unknown) (unknown) (no (unknown) (unknown) Saima N Sites is (units (unknown) date) a 22 year old unknown) TIFFANIE 12/24/2022 admitted now at 38+6 weeks (unknown) (no (unknown) (unknown) Diabetes mellitus (units (unknown) date) unknown) (unknown) (no (unknown) (unknown) Dilation (cm): 1 (units (unknown) date) unknown) (unknown) (no (unknown) (unknown) Dilation: 1-2 cm (units (unknown) date) unknown) (unknown) (no (unknown) (unknown) EGA for (units (unkno wn) date) ripening/induction unknown) due to incapacitating left sided hip pain. Aside (unknown) (no (unknown) (unknown) Effacement (%): 80 (units (unknown) date) unknown) (unknown) (no (unknown) (unknown) Effacement: >/=80% (units (unknown) date) unknown) (unknown) (no (unknown) (unknown) Effort + (units (unkno wn) date) Inspection: normal unknown) respiratory effort and able to speak in complete (unknown) (no (unknown) (unknown) Eos # (Auto) 0 (units (unknown) date) unknown) (unknown) (no (unknown) (unknown) Eos % (Auto) 0.4 L (units (unknown) date) unknown) (unknown) (no (unknown) (unknown) Estimated Date of (units (unknown) date) Delivery: 12/24/22 unknown) (unknown) (no (unknown) (unknown) Estimated (units (unknown) date) Weight (lbs): 7 unknown) (unknown) (no (unknown) (unknown) Estimated (units (unkn own) date) Gestational Age unknown) (weeks): 38+6 (unknown) (no (unknown) (unknown) Evaluation (units (unk nown) date) unknown) (unknown) (no (unknown) (unknown) Extremities (units (un known) date) unknown) (unknown) (no (unknown) (unknown) Eyes (units (unkno wn) date) unknown) (unknown) (no (unknown) (unknown) Family History (units (unknown) date) (Reviewed 11/27/22 @ unknown) 20:32 by Chelsy Johns CNM) (unknown) (no (unknown) (unknown) Father Diabetes (units (unknown) date) mellitus unknown) (unknown) (no (unknown) (unknown) Monitor (units ( unknown) date) Decelerations: unknown) Absent (unknown) (no (unknown) (unknown) Presentation: (unit s (unknown) date) vertex unknown) (unknown) (no (unknown) (unknown) Status: (units ( unknown) date) Category l unknown) (unknown) (no (unknown) (unknown) monitor (units ( unknown) date) accelerations: unknown) Present (unknown) (no (unknown) (unknown) station: -1 (units (unknown) date) unknown) (unknown) (no (unknown) (unknown) GBS is positive. (units (unknown) date) unknown) (unknown) (no (unknown) (unknown) GI (units (unkno wn) date) unknown) (unknown) (no (unknown) (unknown) (units (unkno wn) date) unknown) (unknown) (no (unknown) (unknown) General: appearance (unit s (unknown) date) normal, both eyes unknown) and all related structures (unknown) (no (unknown) (unknown) Grandfather (units (un known) date) Diabetes mellitus unknown) (unknown) (no (unknown) (unknown) Grandfather Family (units (unknown) date) estrangement unknown) (unknown) (no (unknown) (unknown) Grandmother Cancer (units (unknown) date) unknown) (unknown) (no (unknown) (unknown) Grandmother (units (un known) date) Diabetes unknown) mellitus (unknown) (no (unknown) (unknown) : 5 (units (unk nown) date) unknown) (unknown) (no (unknown) (unknown) H/O hand surgery (units (unknown) date) unknown) (unknown) (no (unknown) (unknown) HCAB: negative (units (unknown) date) unknown) (unknown) (no (unknown) (unknown) HCT: 36.7 (units (unkn own) date) unknown) (unknown) (no (unknown) (unknown) HENMT (units (unkno wn) date) unknown) (unknown) (no (unknown) (unknown) Hct 36.7 (units (unkno wn) date) unknown) (unknown) (no (unknown) (unknown) Head: normal to (units (unknown) date) inspection, unknown) normocephalic and atraumatic (unknown) (no (unknown) (unknown) Heart Sounds: S1 (units (unknown) date) normal, S2 normal unknown) and no murmurs (unknown) (no (unknown) (unknown) Hgb 12.2 (units (unkno wn) date) unknown) (unknown) (no (unknown) (unknown) History of Present (units (unknown) date) Condition unknown) (unknown) (no (unknown) (unknown) History of Present (units (unknown) date) unknown) 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 (unknown) (no (unknown) (unknown) History of removal (units (unknown) date) of skin mole unknown) (unknown) (no (unknown) (unknown) History: SAB x4 (units (unknown) date) unknown) (unknown) (no (unknown) (unknown) Home Medications (units (unknown) date) and Allergies unknown) (unknown) (no (unknown) (unknown) Home Medications (units (unknown) date) unknown) (unknown) (no (unknown) (unknown) Hyperlipidemia (units (unknown) date) unknown) (unknown) (no (unknown) (unknown) Hypertension (units (u nknown) date) unknown) (unknown) (no (unknown) (unknown) Indication for (units (unknown) date) induction OB: other unknown) (Severe, unrelenting left hip pain) (unknown) (no (unknown) (unknown) Indications (units (un known) date) unknown) (unknown) (no (unknown) (unknown) Inspection: normal (units (unknown) date) to inspection unknown) (unknown) (no (unknown) (unknown) [facility] (units (unknown) date) [address] [place] [address] Street unknown) [place] [address] (unknown) (no (unknown) (unknown) Laboratory Results (units (unknown) date) - last 24 hr unknown) (unknown) (no (unknown) (unknown) Labs (units (unkno wn) date) unknown) (unknown) (no (unknown) (unknown) Labs: (units (unkno wn) date) unknown) (unknown) (no (unknown) (unknown) Low risk female (units (unknown) date) unknown) (unknown) (no (unknown) (unknown) Lower extremity: (units (unknown) date) Yes normal to unknown) inspection (unknown) (no (unknown) (unknown) Lung cancer (units (un known) date) unknown) (unknown) (no (unknown) (unknown) Lymph # (Auto) 2900 (unit s (unknown) date) unknown) (unknown) (no (unknown) (unknown) Lymph % (Auto) 26.3 (unit s (unknown) date) unknown) (unknown) (no (unknown) (unknown) MCH 26.8 (units (unkno wn) date) unknown) (unknown) (no (unknown) (unknown) MCHC 33.2 (units (unkn own) date) unknown) (unknown) (no (unknown) (unknown) MCV 80.9 (units (unkno wn) date) unknown) (unknown) (no (unknown) (unknown) Medical History (units (unknown) date) (Reviewed 11/27/22 @ unknown) 20:32 by Chelsy Johns CNM) (unknown) (no (unknown) (unknown) Medical (units (unkno wn) date) complications: none unknown) (unknown) (no (unknown) (unknown) Medication (units (unk nown) date) Instructions unknown) Recorded Confirmed Type (unknown) (no (unknown) (unknown) Meds (units (unkno wn) date) unknown) (unknown) (no (unknown) (unknown) Mental health (units ( unknown) date) problem unknown) (unknown) (no (unknown) (unknown) Todd # (Auto) 1000 (units (unknown) date) H unknown) (unknown) (no (unknown) (unknown) Todd % (Auto) 8.9 (units (unknown) date) unknown) (unknown) (no (unknown) (unknown) Mother Gestational (units (unknown) date) diabetes unknown) (unknown) (no (unknown) (unknown) Narrative: (units (unk nown) date) unknown) (unknown) (no (unknown) (unknown) Neut # (Auto) 6900 (units (unknown) date) unknown) (unknown) (no (unknown) (unknown) Neut % (Auto) 64.0 (units (unknown) date) unknown) (unknown) (no (unknown) (unknown) OB Exam (units (unkno wn) date) unknown) (unknown) (no (unknown) (unknown) OB HPI (units (unkno wn) date) unknown) (unknown) (no (unknown) (unknown) [facility] History + (units (unknown) date) Physical unknown) (unknown) (no (unknown) (unknown) Objective (units (unkn own) date) unknown) (unknown) (no (unknown) (unknown) Obstetrical (units (un known) date) complications: none unknown) (unknown) (no (unknown) (unknown) Ovarian cyst (units (u nknown) date) () unknown) (unknown) (no (unknown) (unknown) PAP: Normal (units (un known) date) unknown) (unknown) (no (unknown) (unknown) PFSH (units (unkno wn) date) unknown) (unknown) (no (unknown) (unknown) PID (acute pelvic (units (unknown) date) inflammatory unknown) disease) (unknown) (no (unknown) (unknown) PLAN (units (unkno wn) date) unknown) (unknown) (no (unknown) (unknown) PTSD (units (unkno wn) date) (post-traumatic unknown) stress disorder) () (unknown) (no (unknown) (unknown) Palpation: Yes soft (unit s (unknown) date) and Yes no unknown) hepatosplenomegaly (unknown) (no (unknown) (unknown) Para: 0 (units (unkno wn) date) unknown) (unknown) (no (unknown) (unknown) Patient: (units (unkno wn) date) Saima Tejada MR#: unknown) M00 (unknown) (no (unknown) (unknown) Plt Count 193 (units ( unknown) date) unknown) (unknown) (no (unknown) (unknown) Position of cervix: (unit s (unknown) date) mid unknown) (unknown) (no (unknown) (unknown) Preadmission Labs (units (unknown) date) unknown) (unknown) (no (unknown) (unknown) care: good (unit s (unknown) date) care unknown) (unknown) (no (unknown) (unknown) Prior (units (unkno wn) date) (ies) unknown) (unknown) (no (unknown) (unknown) Problem-specific (units (unknown) date) ROS positives unknown) included in HPI (unknown) (no (unknown) (unknown) Prostate cancer (units (unknown) date) unknown) (unknown) (no (unknown) (unknown) Provider: (units (unkn own) date) Chaka Flores MD unknown) (unknown) (no (unknown) (unknown) Pulse Rate: 82 (units (unknown) date) unknown) (unknown) (no (unknown) (unknown) Quad screen: Normal (unit s (unknown) date) (AFP screening is unknown) negative ) (unknown) (no (unknown) (unknown) RBC 4.53 (units (unkno wn) date) unknown) (unknown) (no (unknown) (unknown) RBC Morphology See (units (unknown) date) below unknown) (unknown) (no (unknown) (unknown) RDW 27.3 H (units (unk nown) date) unknown) (unknown) (no (unknown) (unknown) Rate: regular rate (units (unknown) date) unknown) (unknown) (no (unknown) (unknown) Recurrent UTI (units ( unknown) date) (-2020) unknown) (unknown) (no (unknown) (unknown) 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 (unknown) (no (unknown) (unknown) Resp (units (unkno wn) date) unknown) (unknown) (no (unknown) (unknown) Respiratory Rate: (units (unknown) date) 16 unknown) (unknown) (no (unknown) (unknown) Review of Systems (units (unknown) date) unknown) (unknown) (no (unknown) (unknown) Rhythm: regular (units (unknown) date) rhythm unknown) (unknown) (no (unknown) (unknown) Schizophrenia (units ( unknown) date) unknown) (unknown) (no (unknown) (unknown) Seizures (-2003) (units (unknown) date) unknown) (unknown) (no (unknown) (unknown) Signed (units (unkno wn) date) By:<Electronically unknown) signed by Chaka Flores MD> (unknown) (no (unknown) (unknown) Sister Anxiety (units (unknown) date) unknown) (unknown) (no (unknown) (unknown) Sister Depression (units (unknown) date) unknown) (unknown) (no (unknown) (unknown) Smoking Status: (units (unknown) date) Never smoker unknown) (unknown) (no (unknown) (unknown) Social History (units (unknown) date) (Reviewed 11/27/22 @ unknown) 20:32 by Chelsy Johns CNM) (unknown) (no (unknown) (unknown) Surgical History (units (unknown) date) (Reviewed 11/27/22 @ unknown) 20:32 by Chelsy Johns CNM) (unknown) (no (unknown) (unknown) Temperature: 97.9 F (unit s (unknown) date) unknown) (unknown) (no (unknown) (unknown) Time Patient Seen: (units (unknown) date) 22:50 unknown) (unknown) (no (unknown) (unknown) Time Spent with (units (unknown) date) Patient unknown) (unknown) (no (unknown) (unknown) Total time spent (units (unknown) date) with greater than unknown) 50% in coordination of care (as documented) (unknown) (no (unknown) (unknown) Type(s) of (units (unk nown) date) exercise: walking unknown) (unknown) (no (unknown) (unknown) Ultrasounds: normal (unit s (unknown) date) 1st trimester US and unknown) normal mid trimester US (unknown) (no (unknown) (unknown) Uterine Contraction (unit s (unknown) date) Intensity: Moderate unknown) (unknown) (no (unknown) (unknown) Uterus Location (units (unknown) date) (Fundal Height): 36 unknown) (unknown) (no (unknown) (unknown) Variability: (units (u nknown) date) Moderate (11-25) unknown) (unknown) (no (unknown) (unknown) Vital signs (units (un known) date) unknown) (unknown) (no (unknown) (unknown) WBC 10.9 (units (unkno wn) date) unknown) (unknown) (no (unknown) (unknown) [Embedded Image Not (unit s (unknown) date) Available] unknown) (unknown) (no (unknown) (unknown) alcohol intake: (units (unknown) date) never unknown) (unknown) (no (unknown) (unknown) at patient's (units (u nknown) date) floor/unit and/or unknown) counseling patient:: 15-24 minutes (unknown) (no (unknown) (unknown) been largely (units (u nknown) date) uneventful with firm unknown) dating and appropriate milestones throughout. (unknown) (no (unknown) (unknown) caffeine: Yes (units ( unknown) date) (occasionally, aware unknown) of 200mg limit) (unknown) (no (unknown) (unknown) cantaloupe AdvReac (units (unknown) date) Mild Rash Verified unknown) 12/17/22 03:58 (unknown) (no (unknown) (unknown) carbon monox (units (u nknown) date) detector in home: unknown) Yes (unknown) (no (unknown) (unknown) current (units (unkno wn) date) occupational unknown) exposures/hazards: No (unknown) (no (unknown) (unknown) daily servings (units (unknown) date) fruits/ve-4 unknown) (unknown) (no (unknown) (unknown) do you feel safe at (unit s (unknown) date) home: Yes unknown) (unknown) (no (unknown) (unknown) duration: 15-30 (units (unknown) date) minutes/day unknown) (unknown) (no (unknown) (unknown) during the past (units (unknown) date) year weight has: unknown) other ([id number] lb) (unknown) (no (unknown) (unknown) education level: (units (unknown) date) high school unknown) (unknown) (no (unknown) (unknown) fire extinguisher (units (unknown) date) in home: Yes unknown) (unknown) (no (unknown) (unknown) firearms in home: (units (unknown) date) Yes firearms unknown) unloaded and locked: Yes (unknown) (no (unknown) (unknown) from some premature (unit s (unknown) date) contractions in the unknown) 3rd trimester, her course has (unknown) (no (unknown) (unknown) household members: (units (unknown) date) spouse unknown) (unknown) (no (unknown) (unknown) housing: apartment (units (unknown) date) unknown) (unknown) (no (unknown) (unknown) lives (units (unkno wn) date) independently: Yes unknown) (unknown) (no (unknown) (unknown) marital status: (units (unknown) date) unknown) (unknown) (no (unknown) (unknown) negative and (units (u nknown) date) RPR/VDLR: negative unknown) (unknown) (no (unknown) (unknown) number of children: (unit s (unknown) date) 0 unknown) (unknown) (no (unknown) (unknown) occupational (units (u nknown) date) status: unemployed unknown) (unknown) (no (unknown) (unknown) pets and animals: (units (unknown) date) Yes (1 dog 1 cat; unknown) aware of toxo) (unknown) (no (unknown) (unknown) seatbelt use: (units ( unknown) date) always unknown) (unknown) (no (unknown) (unknown) second hand (units (un known) date) exposure: Yes (while unknown) visiting family (mom smokes)) (unknown) (no (unknown) (unknown) sentences (units (unkn own) date) unknown) (unknown) (no (unknown) (unknown) sertraline 25 mg (units (unknown) date) tablet See Rx unknown) Instructions PO .COMPLEX 06/09/22 12/16/22 Rx (unknown) (no (unknown) (unknown) special mirella (units ( unknown) date) needs: No unknown) (unknown) (no (unknown) (unknown) substance use type: (unit s (unknown) date) marijuana (quit when unknown) she learned she was ) (unknown) (no (unknown) (unknown) travel history: (units (unknown) date) recent (domestic unknown) only) (unknown) (no (unknown) (unknown) water heater temp (units (unknown) date) set < 120 deg: No unknown) (Will call landlord to adjust ) (unknown) (no (unknown) (unknown) well-balanced diet: (unit s (unknown) date) daily or most days unknown) (unknown) (no (unknown) (unknown) working smoke (units ( unknown) date) detector in home: unknown) Yes Result panel 2419 (unknown) (no (unknown) (unknown) (no value) (units (unk nown) date) unknown) (unknown) (no (unknown) (unknown) 12/17/22 1236 (units ( unknown) date) unknown) (unknown) (no (unknown) (unknown) [id number] (units (unkno wn) date) unknown) (unknown) (no (unknown) (unknown) Age/Sex: 22 / F (units (unknown) date) unknown) (unknown) (no (unknown) (unknown) Amniotic (units (unkno wn) date) membrane status: unknown) Intact (unknown) (no (unknown) (unknown) Assessment and (units (unknown) date) Plan unknown) (unknown) (no (unknown) (unknown) Assessment: (units (un known) date) induction unknown) ongoing (unknown) (no (unknown) (unknown) Comments: (units (unkn own) date) unknown) (unknown) (no (unknown) (unknown) Contraction (units (un known) date) intensity: unknown) Moderate (unknown) (no (unknown) (unknown) Contraction (units (un known) date) pattern: unknown) Irregular (unknown) (no (unknown) (unknown) Contraction (units (un known) date) phase: Resting unknown) (unknown) (no (unknown) (unknown) Contractions on (units (unknown) date) admission: none unknown) (unknown) (no (unknown) (unknown) Contractions (units (u nknown) date) unknown) (unknown) (no (unknown) (unknown) : 2000 (units (unknown) date) Acct:[id number] unknown) (unknown) (no (unknown) (unknown) Date Patient (units (u nknown) date) Seen: 12/17/22 unknown) (unknown) (no (unknown) (unknown) Date of (units (unkno wn) date) Service: unknown) 12/16/22 (unknown) (no (unknown) (unknown) Date/Time (units (unkn own) date) unknown) (unknown) (no (unknown) (unknown) Dilation (cm): (units (unknown) date) 1 unknown) (unknown) (no (unknown) (unknown) Effacement (%): (units (unknown) date) 80 unknown) (unknown) (no (unknown) (unknown) Heart (units (un known) date) Rate Baseline: unknown) 135 (unknown) (no (unknown) (unknown) Monitor (units ( unknown) date) Accelerations: unknown) Present (unknown) (no (unknown) (unknown) Monitor (units ( unknown) date) Decelerations: unknown) Absent (unknown) (no (unknown) (unknown) Monitor (units ( unknown) date) Variability: unknown) Moderate (unknown) (no (unknown) (unknown) Status (units (u nknown) date) unknown) (unknown) (no (unknown) (unknown) station: (units (unknown) date) -2 unknown) (unknown) (no (unknown) (unknown) status: (units ( unknown) date) Category l unknown) (unknown) (no (unknown) (unknown) [facility] (units (unknown) date) [address] unknown) [place] [address] (unknown) (no (unknown) (unknown) Rebecca corbett (units (unknown) date) with PO cytotec. unknown) Will initiate pitocin augmentation. OK for TRAY (unknown) (no (unknown) (unknown) Monitor mode: (units ( unknown) date) External unknown) (unknown) (no (unknown) (unknown) [facility] Progress (units (unknown) date) Note unknown) (unknown) (no (unknown) (unknown) Pain Control (units (u nknown) date) unknown) (unknown) (no (unknown) (unknown) Pain control: (units ( unknown) date) tolerating well unknown) (unknown) (no (unknown) (unknown) Patient: (units (unkno wn) date) [facility] N unknown) MR#: [id number] (unknown) (no (unknown) (unknown) Pelvic Exam (units (un known) date) unknown) (unknown) (no (unknown) (unknown) Plan: begin (units (un known) date) patient unknown) augmentation (unknown) (no (unknown) (unknown) Provider: (units (unkn own) date) Chaka Flores unknown) (unknown) (no (unknown) (unknown) Signed (units (unkno wn) date) By:<Electronical unknown) ly signed by Chaka Flores MD> (unknown) (no (unknown) (unknown) Time Patient (units (u nknown) date) Seen: 12:34 unknown) (unknown) (no (unknown) (unknown) as desired. (units (un known) date) unknown) Result panel 2420 (unknown) (no (unknown) (unknown) (no value) (units (unk nown) date) unknown) (unknown) (no (unknown) (unknown) - + pain with (units ( unknown) date) contractions unknown) (unknown) (no (unknown) (unknown) - s/p 3 doses (units ( unknown) date) of cytotec, now unknown) on pitocin (unknown) (no (unknown) (unknown) - s/p epidural (units (unknown) date) unknown) (unknown) (no (unknown) (unknown) 12/17/22 2256 (units ( unknown) date) unknown) (unknown) (no (unknown) (unknown) [id number] (units (unkno wn) date) unknown) (unknown) (no (unknown) (unknown) 22yo P0 at 39.0 (units (unknown) date) admitted for unknown) IOL. (unknown) (no (unknown) (unknown) AROM if needed (units (unknown) date) unknown) (unknown) (no (unknown) (unknown) Age/Sex: 22 / F (units (unknown) date) unknown) (unknown) (no (unknown) (unknown) Amniotic (units (unkno wn) date) membrane status: unknown) Intact (unknown) (no (unknown) (unknown) Assessment and (units (unknown) date) Plan unknown) (unknown) (no (unknown) (unknown) Assessment: (units (un known) date) induction unknown) ongoing (unknown) (no (unknown) (unknown) Comments: (units (unkn own) date) unknown) (unknown) (no (unknown) (unknown) Continue (units (unkno wn) date) pitocin for unknown) induction / augmentation (unknown) (no (unknown) (unknown) Contraction (units (un known) date) intensity: unknown) Moderate (unknown) (no (unknown) (unknown) Contraction (units (un known) date) pattern: unknown) Irregular (unknown) (no (unknown) (unknown) Contraction (units (un known) date) phase: Resting unknown) (unknown) (no (unknown) (unknown) Contractions on (units (unknown) date) admission: unknown) irregular (unknown) (no (unknown) (unknown) Contractions (units (u nknown) date) unknown) (unknown) (no (unknown) (unknown) : 2000 (units (unknown) date) Acct:[id number] unknown) (unknown) (no (unknown) (unknown) Date Patient (units (u nknown) date) Seen: 12/17/22 unknown) (unknown) (no (unknown) (unknown) Date of (units (unkno wn) date) Service: unknown) 12/16/22 (unknown) (no (unknown) (unknown) Date/Time (units (unkn own) date) unknown) (unknown) (no (unknown) (unknown) Dilation (cm): (units (unknown) date) 3 unknown) (unknown) (no (unknown) (unknown) Effacement (%): (units (unknown) date) 80 unknown) (unknown) (no (unknown) (unknown) Monitor (units ( unknown) date) Accelerations: unknown) Present (unknown) (no (unknown) (unknown) Monitor (units ( unknown) date) Decelerations: unknown) Absent (unknown) (no (unknown) (unknown) Monitor (units ( unknown) date) Variability: unknown) Moderate (unknown) (no (unknown) (unknown) Status (units (u nknown) date) unknown) (unknown) (no (unknown) (unknown) station: (units (unknown) date) -2 unknown) (unknown) (no (unknown) (unknown) status: (units ( unknown) date) Category l unknown) (unknown) (no (unknown) (unknown) GBS prophylaxis (units (unknown) date) unknown) (unknown) (no (unknown) (unknown) [facility] (units (unknown) date) [address] unknown) [place] [address] (unknown) (no (unknown) (unknown) Monitor mode: (units ( unknown) date) External unknown) (unknown) (no (unknown) (unknown) [facility] Progress (units (unknown) date) Note unknown) (unknown) (no (unknown) (unknown) Pain Control (units (u nknown) date) unknown) (unknown) (no (unknown) (unknown) Pain control: (units ( unknown) date) tolerating well unknown) (unknown) (no (unknown) (unknown) Patient: (units (unkno wn) date) Sites,Saima N unknown) MR#: [id number] (unknown) (no (unknown) (unknown) Pelvic Exam (units (un known) date) unknown) (unknown) (no (unknown) (unknown) Plan: (units (unkno wn) date) continuous unknown) present management (unknown) (no (unknown) (unknown) Provider: (units (unkn own) date) Nevaeh John unknown) ivonne BEE (unknown) (no (unknown) (unknown) Signed (units (unkno wn) date) By:<Electronical unknown) ly signed by Guillermo John MD> (unknown) (no (unknown) (unknown) Time Patient (units (u nknown) date) Seen: 18:00 unknown) (unknown) (no (unknown) (unknown) continuous (units (unk nown) date) monitoring unknown) (unknown) (no (unknown) (unknown) s/p epidural (units (u nknown) date) unknown) Result panel 2421 (unknown) (no (unknown) (unknown) (no value) (units (unk nown) date) unknown) (unknown) (no (unknown) (unknown) 12/18/22 0220 (units ( unknown) date) unknown) (unknown) (no (unknown) (unknown) [id number] (units (unkno wn) date) unknown) (unknown) (no (unknown) (unknown) 1: (units (unkno wn) date) unknown) (unknown) (no (unknown) (unknown) 1st degree (units (unk nown) date) perineal unknown) laceration repaired with 2-0 vicryl. (unknown) (no (unknown) (unknown) score (1 (units (unknown) date) min): 8 unknown) (unknown) (no (unknown) (unknown) score (5 (units (unknown) date) min): 9 unknown) (unknown) (no (unknown) (unknown) APGARs 8/9. (units (un known) date) Weight pending unknown) at time of note. (unknown) (no (unknown) (unknown) Age/Sex: 22 / F (units (unknown) date) unknown) (unknown) (no (unknown) (unknown) Anesthesia (units (unk nown) date) Type: Epidural unknown) (unknown) (no (unknown) (unknown) Cervical (units (unkno wn) date) ripening method: unknown) per misoprostal protocol (unknown) (no (unknown) (unknown) : 2000 (units (unknown) date) Acct:[id number] unknown) (unknown) (no (unknown) (unknown) Date of (units (unkno wn) date) Service: unknown) 12/16/22 (unknown) (no (unknown) (unknown) Delivery (units (unkno wn) date) augmentation: unknown) pitocin (unknown) (no (unknown) (unknown) Delivery date: (units (unknown) date) 12/18/22 unknown) (unknown) (no (unknown) (unknown) Delivery (units (unkno wn) date) monitor: unknown) external FHT and external uterine (unknown) (no (unknown) (unknown) Delivery (units (unkno wn) date) repair: vicryl unknown) (unknown) (no (unknown) (unknown) EBL: 200cc (units (unk nown) date) unknown) (unknown) (no (unknown) (unknown) Episiotomy (units (unk n) date) description: unknown) None (unknown) (no (unknown) (unknown) Estimated blood (units (unknown) date) loss (mL): 200 unknown) (unknown) (no (unknown) (unknown) Cord (units (unk n) date) Vessel unknown) Description: 3 Vessels (unknown) (no (unknown) (unknown) Position: (units (unknown) date) Left Occiput unknown) Anterior (unknown) (no (unknown) (unknown) (units (unkno wn) date) Presentation: unknown) vertex (unknown) (no (unknown) (unknown) Induction (units (unkn own) date) method: per unknown) pitocin protocol (unknown) (no (unknown) (unknown) Infant gender: (units (unknown) date) Female unknown) (unknown) (no (unknown) (unknown) Intrapartal (units (un known) date) Events: None unknown) (unknown) (no (unknown) (unknown) [facility] (units (unknown) date) [address] unknown) [place] [address] (unknown) (no (unknown) (unknown) L+D Laceration (units (unknown) date) Description: unknown) Perineal - 1st Degree (unknown) (no (unknown) (unknown) Labor + (units (unkno wn) date) Delivery unknown) (unknown) (no (unknown) (unknown) Narrative: (units (unk nown) date) unknown) (unknown) (no (unknown) (unknown) [place] [facility] (units (u nknown) date) unknown) (unknown) (no (unknown) (unknown) [facility] (units (unkno wn) date) Procedure Note unknown) (unknown) (no (unknown) (unknown) Patient: (units (unkno wn) date) Blane,Saima N unknown) MR#: [id number] (unknown) (no (unknown) (unknown) Placenta (units (unkno wn) date) delivered unknown) spontaneously. (unknown) (no (unknown) (unknown) Placenta (units (unkno wn) date) delivery unknown) description: Spontaneous (unknown) (no (unknown) (unknown) Plan for (units (unkno wn) date) aftercare: unknown) Routine care (unknown) (no (unknown) (unknown) (units (unk nown) date) unknown) (unknown) (no (unknown) (unknown) (units (unkno wn) date) Events: Labor unknown) Induction and Labor Augmentation (unknown) (no (unknown) (unknown) (units (unkno wn) date) unknown) (unknown) (no (unknown) (unknown) Provider: (units (unkn own) date) Nevaeh John unknown) ivonne BEE (unknown) (no (unknown) (unknown) Route of (units (unkno wn) date) delivery: unknown) (unknown) (no (unknown) (unknown) Signed (units (unkno wn) date) By:<Electronical unknown) ly signed by Guillermo John MD> (unknown) (no (unknown) (unknown) bruising noted (units (unknown) date) on right labia, unknown) nonexpanding (unknown) (no (unknown) (unknown) delivered over (units (unknown) date) an intact unknown) perineum, atraumatically. (unknown) (no (unknown) (unknown) descent (units ( unknown) date) was noted. From unknown) a vertex position, a viable female infant was (unknown) (no (unknown) (unknown) patient found to (units (unknown) date) be 10/100/+1 unknown) with urge to push. With adequate maternal pushing, Result panel 2422 (unknown) (no date) (unknown) (unknown) 0.5 % (unkn own) (unknown) (no date) (unknown) (unknown) 1.2 % (unkn own) (unknown) (no date) (unknown) (unknown) 100 /ul (unkn own) (unknown) (no date) (unknown) (unknown) 100 /ul (unkn own) (unknown) (no date) (unknown) (unknown) 1100 /ul (unkn own) (unknown) (no date) (unknown) (unknown) 12.7 g/dl (unkn own) (unknown) (no date) (unknown) (unknown) 129 x10 3/ul (unkn own) (unknown) (no date) (unknown) (unknown) 13.0 x10 3/ul (unkn own) (unknown) (no date) (unknown) (unknown) 23.6 % (unkn own) (unknown) (no date) (unknown) (unknown) 26.8 pg (unkn own) (unknown) (no date) (unknown) (unknown) 27.9 % (unkn own) (unknown) (no date) (unknown) (unknown) 3100 /ul (unkn own) (unknown) (no date) (unknown) (unknown) 32.2 % (unkn own) (unknown) (no date) (unknown) (unknown) 39.5 % (unkn own) (unknown) (no date) (unknown) (unknown) 4.75 x10 6/ul (unkn own) (unknown) (no date) (unknown) (unknown) 66.3 % (unkn own) (unknown) (no date) (unknown) (unknown) 8.4 % (unkn own) (unknown) (no date) (unknown) (unknown) 83.2 fl (unkn own) (unknown) (no date) (unknown) (unknown) 8700 /ul (unkn own) Result panel 2423 (unknown) (no (unknown) (unknown) (no value) (units (unk nown) date) unknown) (unknown) (no (unknown) (unknown) 12/16/22 19:41 (units (unknown) date) unknown) (unknown) (no (unknown) (unknown) 12/16/22 20:00 (units (unknown) date) unknown) (unknown) (no (unknown) (unknown) 12/19/22 02:10 (units (unknown) date) unknown) (unknown) (no (unknown) (unknown) 12/19/22 06:22 (units (unknown) date) unknown) (unknown) (no (unknown) (unknown) 12/19/22 (units (unkno wn) date) unknown) (unknown) (no (unknown) (unknown) [id number] (units (unkno wn) date) unknown) (unknown) (no (unknown) (unknown) 06:22 (units (unkno wn) date) unknown) (unknown) (no (unknown) (unknown) 1 tab daily for (units (unknown) date) 1 week then 2 unknown) tabs daily orally; (unknown) (no (unknown) (unknown) 650 mg PO Q6HR (units (unknown) date) PRN (Reason: unknown) Fever/Mild Pain (1-3)) 7 Days Qty: 30 0RF (unknown) (no (unknown) (unknown) Age/Sex: 22 / F (units (unknown) date) unknown) (unknown) (no (unknown) (unknown) Baso # (Auto) (units ( unknown) date) 100 unknown) (unknown) (no (unknown) (unknown) Baso % (Auto) (units ( unknown) date) 0.5 unknown) (unknown) (no (unknown) (unknown) Comment: (units (unkno wn) date) unknown) (unknown) (no (unknown) (unknown) Consult to (units (unk nown) date) Anesthesiology unknown) Urgent (unknown) (no (unknown) (unknown) Consult to (units (unk nown) date) unknown) Generating Station Mechanic Routine (unknown) (no (unknown) (unknown) Consulting (units (unk nown) date) Provider: unknown) Chaka Flores (unknown) (no (unknown) (unknown) Consults: (units (unkn own) date) unknown) (unknown) (no (unknown) (unknown) Continued (units (unkn own) date) unknown) (unknown) (no (unknown) (unknown) : 2000 (units (unknown) date) Acct:[id number] unknown) (unknown) (no (unknown) (unknown) Date of Service: (units (unknown) date) 12/16/22 unknown) (unknown) (no (unknown) (unknown) Date of (units (unkno wn) date) admission: unknown) (unknown) (no (unknown) (unknown) Diet/Activity/Tr (units (unknown) date) eatments unknown) (unknown) (no (unknown) (unknown) Diet: Diet as (units ( unknown) date) Tolerated unknown) (unknown) (no (unknown) (unknown) Discharge Data (units (unknown) date) unknown) (unknown) (no (unknown) (unknown) Discharge Plan (units (unknown) date) unknown) (unknown) (no (unknown) (unknown) Discharge (units (unkn own) date) Providers unknown) (unknown) (no (unknown) (unknown) Discharge (units (unkn own) date) Summary unknown) (unknown) (no (unknown) (unknown) Discharge orders (units (unknown) date) + Medications unknown) (unknown) (no (unknown) (unknown) Discharge (units (unkn own) date) provider: unknown) (unknown) (no (unknown) (unknown) Eos # (Auto) 100 (units (unknown) date) unknown) (unknown) (no (unknown) (unknown) Eos % (Auto) 1.2 (units (unknown) date) L unknown) (unknown) (no (unknown) (unknown) Follow (units (unkno wn) date) up/Referrals: unknown) (unknown) (no (unknown) (unknown) Has provider (units (u nknown) date) been notified: No unknown) (unknown) (no (unknown) (unknown) Hct 39.5 (units (unkno wn) date) unknown) (unknown) (no (unknown) (unknown) Hgb 12.7 (units (unkno wn) date) unknown) (unknown) (no (unknown) (unknown) [facility] (units (unknown) date) [address] unknown) [place] [address] (unknown) (no (unknown) (unknown) Laboratory (units (unk nown) date) Results - last 24 unknown) hr (unknown) (no (unknown) (unknown) Labs (units (unkno wn) date) unknown) (unknown) (no (unknown) (unknown) Labs: (units (unkno wn) date) unknown) (unknown) (no (unknown) (unknown) Lymph # (Auto) (units (unknown) date) 3100 unknown) (unknown) (no (unknown) (unknown) Lymph % (Auto) (units (unknown) date) 23.6 L unknown) (unknown) (no (unknown) (unknown) MCH 26.8 (units (unkno wn) date) unknown) (unknown) (no (unknown) (unknown) MCHC 32.2 (units (unkn own) date) unknown) (unknown) (no (unknown) (unknown) MCV 83.2 (units (unkno wn) date) unknown) (unknown) (no (unknown) (unknown) Todd # (Auto) (units ( unknown) date) 1100 H unknown) (unknown) (no (unknown) (unknown) Todd % (Auto) (units ( unknown) date) 8.4 unknown) (unknown) (no (unknown) (unknown) Neut # (Auto) (units ( unknown) date) 8700 H unknown) (unknown) (no (unknown) (unknown) Neut % (Auto) (units ( unknown) date) 66.3 unknown) (unknown) (no (unknown) (unknown) New (units (unkno wn) date) unknown) (unknown) (no (unknown) (unknown) Objective (units (unkn own) date) unknown) (unknown) (no (unknown) (unknown) Patient (units (unkno wn) date) Comments: unknown) (unknown) (no (unknown) (unknown) Patient (units (unkno wn) date) Disposition: Home unknown) (unknown) (no (unknown) (unknown) Patient: (units (unkno wn) date) Sites,Saima N unknown) MR#: [id number] (unknown) (no (unknown) (unknown) Plt Count 129 L (units (unknown) date) unknown) (unknown) (no (unknown) (unknown) Prescriptions: (units (unknown) date) unknown) (unknown) (no (unknown) (unknown) Primary Care (units (u nknown) date) Provider: unknown) Nikita Olivo (unknown) (no (unknown) (unknown) Primary care (units (u nknown) date) physician: unknown) (unknown) (no (unknown) (unknown) Provider (units (unkno wn) date) unknown) (unknown) (no (unknown) (unknown) Nikita Olivo (units (unknown) date) [facility] [Primary Care unknown) Provider] (unknown) (no (unknown) (unknown) Provider: (units (unkn own) date) Guillermo John unknown) (unknown) (no (unknown) (unknown) Pt reports not (units (unknown) date) taking any meds unknown) currently (unknown) (no (unknown) (unknown) RBC 4.75 (units (unkno wn) date) unknown) (unknown) (no (unknown) (unknown) RDW 27.9 H (units (unk nown) date) unknown) (unknown) (no (unknown) (unknown) Reason for (units (unk nown) date) consultation: unknown) Epidural (unknown) (no (unknown) (unknown) Rx Instructions: (units (unknown) date) unknown) (unknown) (no (unknown) (unknown) See Rx (units (unkno wn) date) Instructions PO unknown) .COMPLEX Qty: 60 1RF (unknown) (no (unknown) (unknown) Signed By: (units (unk nown) date) unknown) (unknown) (no (unknown) (unknown) Stand Alone (units (un known) date) Forms: Patient unknown) Portal/API, Stroke Signs + Symptoms (unknown) (no (unknown) (unknown) Summary (units (unkno wn) date) unknown) (unknown) (no (unknown) (unknown) Guillermo (units (unkno wn) date) MD Dora unknown) (unknown) (no (unknown) (unknown) Time Spent with (units (unknown) date) Patient unknown) (unknown) (no (unknown) (unknown) Time (units (unkno wn) date) attestation: unknown) (unknown) (no (unknown) (unknown) Total time spent (units (unknown) date) providing and/or unknown) coordinating discharge services: (unknown) (no (unknown) (unknown) Visit (units (unkno wn) date) Report/Discharge unknown) Packet (unknown) (no (unknown) (unknown) WBC 13.0 H (units (unk nown) date) unknown) (unknown) (no (unknown) (unknown) Nikita MOORE (units (un known) date) Provider unknown) (unknown) (no (unknown) (unknown) Chaka Flores, (units (unknown) date) [Physician] - unknown) 6 Weeks (unknown) (no (unknown) (unknown) [Embedded Image (units (unknown) date) Not Available] unknown) (unknown) (no (unknown) (unknown) acetaminophen (units ( unknown) date) [Children's unknown) Acetaminophen] 160 mg/5 mL Suspension (unknown) (no (unknown) (unknown) sertraline 25 mg (units (unknown) date) tablet unknown) Result panel 2424 (unknown) (no date) (unknown) (unknown) 0.5 % (unkn own) (unknown) (no date) (unknown) (unknown) 1.2 % (unkn own) (unknown) (no date) (unknown) (unknown) 100 /ul (unkn own) (unknown) (no date) (unknown) (unknown) 100 /ul (unkn own) (unknown) (no date) (unknown) (unknown) 1100 /ul (unkn own) (unknown) (no date) (unknown) (unknown) 12.7 g/dl (unkn own) (unknown) (no date) (unknown) (unknown) 129 x10 3/ul (unkn own) (unknown) (no date) (unknown) (unknown) 13.0 x10 3/ul (unkn own) (unknown) (no date) (unknown) (unknown) 2 (units (unkn own) unknown) (unknown) (no date) (unknown) (unknown) 23.6 % (unkn own) (unknown) (no date) (unknown) (unknown) 26.8 pg (unkn own) (unknown) (no date) (unknown) (unknown) 27.9 % (unkn own) (unknown) (no date) (unknown) (unknown) 3100 /ul (unkn own) (unknown) (no date) (unknown) (unknown) 32.2 % (unkn own) (unknown) (no date) (unknown) (unknown) 39.5 % (unkn own) (unknown) (no date) (unknown) (unknown) 4.75 x10 6/ul (unkn own) (unknown) (no date) (unknown) (unknown) 66.3 % (unkn own) (unknown) (no date) (unknown) (unknown) 8.4 % (unkn own) (unknown) (no date) (unknown) (unknown) 83.2 fl (unkn own) (unknown) (no date) (unknown) (unknown) 8700 /ul (unkn own) (unknown) (no date) (unknown) (unknown) See Below (units (unk nown) unknown) Result panel 2425 (unknown) (no (unknown) (unknown) (no value) (units (unk nown) date) unknown) (unknown) (no (unknown) (unknown) Discharges (units ( unknown) date) patient from unknown) system. (unknown) (no (unknown) (unknown) + Symptoms (units (unk nown) date) unknown) (unknown) (no (unknown) (unknown) 12/16/22 19:41 (units (unknown) date) unknown) (unknown) (no (unknown) (unknown) 12/16/22 20:00 (units (unknown) date) unknown) (unknown) (no (unknown) (unknown) 12/19/22 02:10 (units (unknown) date) unknown) (unknown) (no (unknown) (unknown) 12/19/22 06:22 (units (unknown) date) unknown) (unknown) (no (unknown) (unknown) 12/19/22 1809 (units ( unknown) date) unknown) (unknown) (no (unknown) (unknown) 12/19/22 (units (unkno wn) date) unknown) (unknown) (no (unknown) (unknown) [id number] (units (unkno wn) date) unknown) (unknown) (no (unknown) (unknown) 06:22 (units (unkno wn) date) unknown) (unknown) (no (unknown) (unknown) 1 tab daily for (units (unknown) date) 1 week then 2 unknown) tabs daily orally; (unknown) (no (unknown) (unknown) 22yo now P1 (units (un known) date) admitted for IOL unknown) with cytotec and pitocin, and subsequently (unknown) (no (unknown) (unknown) 650 mg PO Q6HR (units (unknown) date) PRN (Reason: unknown) Fever/Mild Pain (1-3)) 7 Days Qty: 30 0RF (unknown) (no (unknown) (unknown) Age/Sex: 22 / F (units (unknown) date) unknown) (unknown) (no (unknown) (unknown) Baso # (Auto) (units ( unknown) date) 100 unknown) (unknown) (no (unknown) (unknown) Baso % (Auto) (units ( unknown) date) 0.5 unknown) (unknown) (no (unknown) (unknown) Breast (units (unkno wn) date) inspection: unknown) normal inspection of the breasts (unknown) (no (unknown) (unknown) Cardio (units (unkno wn) date) unknown) (unknown) (no (unknown) (unknown) Chest (units (unkno wn) date) unknown) (unknown) (no (unknown) (unknown) Chest: normal (units ( unknown) date) inspection of the unknown) chest (unknown) (no (unknown) (unknown) Cognitive/behavi (units (unknown) date) oral status at unknown) discharge: oriented (unknown) (no (unknown) (unknown) Comment: (units (unkno wn) date) unknown) (unknown) (no (unknown) (unknown) Const (units (unkno wn) date) unknown) (unknown) (no (unknown) (unknown) Consult to (units (unk nown) date) Anesthesiology unknown) Urgent (unknown) (no (unknown) (unknown) Consult to (units (unk nown) date) unknown) Generating Station Mechanic Routine (unknown) (no (unknown) (unknown) Consulting (units (unk nown) date) Provider: unknown) Chaka Flores (unknown) (no (unknown) (unknown) Consults: (units (unkn own) date) unknown) (unknown) (no (unknown) (unknown) Continued (units (unkn own) date) unknown) (unknown) (no (unknown) (unknown) : 2000 (units (unknown) date) Acct:[id number] unknown) (unknown) (no (unknown) (unknown) Date Patient (units (u nknown) date) Seen: 12/19/22 unknown) (unknown) (no (unknown) (unknown) Date of Service: (units (unknown) date) 12/16/22 unknown) (unknown) (no (unknown) (unknown) Date of (units (unkno wn) date) admission: unknown) (unknown) (no (unknown) (unknown) Diagnoses: (units (unk nown) date) unknown) (unknown) (no (unknown) (unknown) Diet/Activity/Tr (units (unknown) date) eatments unknown) (unknown) (no (unknown) (unknown) Diet: Diet as (units ( unknown) date) Tolerated unknown) (unknown) (no (unknown) (unknown) Discharge Data (units (unknown) date) unknown) (unknown) (no (unknown) (unknown) Discharge (units (unkn own) date) Date/Time: unknown) 12/19/22 13:28 (unknown) (no (unknown) (unknown) Discharge Date: (units (unknown) date) 12/19/22 unknown) (unknown) (no (unknown) (unknown) Discharge Plan (units (unknown) date) unknown) (unknown) (no (unknown) (unknown) Discharge (units (unkn own) date) Providers unknown) (unknown) (no (unknown) (unknown) Discharge (units (unkn own) date) Summary unknown) (unknown) (no (unknown) (unknown) Discharge orders (units (unknown) date) + Medications unknown) (unknown) (no (unknown) (unknown) Discharge (units (unkn own) date) provider: unknown) (unknown) (no (unknown) (unknown) Effort + (units (unkno wn) date) Inspection: unknown) normal respiratory effort (unknown) (no (unknown) (unknown) Eos # (Auto) 100 (units (unknown) date) unknown) (unknown) (no (unknown) (unknown) Eos % (Auto) 1.2 (units (unknown) date) L unknown) (unknown) (no (unknown) (unknown) Exam (units (unkno wn) date) unknown) (unknown) (no (unknown) (unknown) External Female (units (unknown) date) Exam: normal unknown) external appearance (unknown) (no (unknown) (unknown) Follow (units (unkno wn) date) up/Referrals: unknown) (unknown) (no (unknown) (unknown) Functional (units (unk nown) date) status at unknown) discharge: independent ambulation (unknown) (no (unknown) (unknown) GI (units (unkno wn) date) unknown) (unknown) (no (unknown) (unknown) (units (unkno wn) date) unknown) (unknown) (no (unknown) (unknown) General: (units (unkno wn) date) cooperative unknown) (unknown) (no (unknown) (unknown) General: no (units (un known) date) rashes or lesions unknown) noted (unknown) (no (unknown) (unknown) General: other (units (unknown) date) (Fundus 2cm below unknown) umbilicus ) (unknown) (no (unknown) (unknown) Has provider (units (u nknown) date) been notified: No unknown) (unknown) (no (unknown) (unknown) Hct 39.5 (units (unkno wn) date) unknown) (unknown) (no (unknown) (unknown) Hgb 12.7 (units (unkno wn) date) unknown) (unknown) (no (unknown) (unknown) Hospital Course (units (unknown) date) unknown) (unknown) (no (unknown) (unknown) Hospital Course: (units (unknown) date) unknown) (unknown) (no (unknown) (unknown) IOL of Labor (units (u nknown) date) unknown) (unknown) (no (unknown) (unknown) Infant Delivery (units (unknown) date) Method: Natural unknown) Vaginal (unknown) (no (unknown) (unknown) Inspection: (units (un known) date) normal to unknown) inspection (unknown) (no (unknown) (unknown) [facility] (units (unknown) date) [address] unknown) [place] [address] (unknown) (no (unknown) (unknown) Laboratory (units (unk nown) date) Results - last 24 unknown) hr (unknown) (no (unknown) (unknown) Labs (units (unkno wn) date) unknown) (unknown) (no (unknown) (unknown) Labs: (units (unkno wn) date) unknown) (unknown) (no (unknown) (unknown) Laceration (units (unk nown) date) Description: unknown) Vaginal - 1st Degree (unknown) (no (unknown) (unknown) Lymph # (Auto) (units (unknown) date) 3100 unknown) (unknown) (no (unknown) (unknown) Lymph % (Auto) (units (unknown) date) 23.6 L unknown) (unknown) (no (unknown) (unknown) MCH 26.8 (units (unkno wn) date) unknown) (unknown) (no (unknown) (unknown) MCHC 32.2 (units (unkn own) date) unknown) (unknown) (no (unknown) (unknown) MCV 83.2 (units (unkno wn) date) unknown) (unknown) (no (unknown) (unknown) Todd # (Auto) (units ( unknown) date) 1100 H unknown) (unknown) (no (unknown) (unknown) Todd % (Auto) (units ( unknown) date) 8.4 unknown) (unknown) (no (unknown) (unknown) Neut # (Auto) (units ( unknown) date) 8700 H unknown) (unknown) (no (unknown) (unknown) Neut % (Auto) (units ( unknown) date) 66.3 unknown) (unknown) (no (unknown) (unknown) New (units (unkno wn) date) unknown) (unknown) (no (unknown) (unknown) Objective (units (unkn own) date) unknown) (unknown) (no (unknown) (unknown) Overall status (units (unknown) date) at discharge: unknown) patient is back to baseline (unknown) (no (unknown) (unknown) Pain well (units (unkn own) date) controlled. unknown) (unknown) (no (unknown) (unknown) Patient (units (unkno wn) date) Comments: unknown) (unknown) (no (unknown) (unknown) Patient (units (unkno wn) date) Disposition: Home unknown) (unknown) (no (unknown) (unknown) Patient: (units (unkno wn) date) Sites,Saima N unknown) MR#: [id number] (unknown) (no (unknown) (unknown) Peripartum Data (units (unknown) date) unknown) (unknown) (no (unknown) (unknown) Plt Count 129 L (units (unknown) date) unknown) (unknown) (no (unknown) (unknown) (units (unk nown) date) complications: unknown) none (unknown) (no (unknown) (unknown) (units (unk nown) date) course was unknown) uncomplicated. on PPD 1, she was ambulating voiding / (unknown) (no (unknown) (unknown) Prescriptions: (units (unknown) date) unknown) (unknown) (no (unknown) (unknown) Primary Care (units (u nknown) date) Provider: unknown) ProviderNikita (unknown) (no (unknown) (unknown) Primary care (units (u nknown) date) physician: unknown) (unknown) (no (unknown) (unknown) Provider (units (unkno wn) date) unknown) (unknown) (no (unknown) (unknown) ProviderNikita (units (unknown) date) [facility] [Primary Care unknown) Provider] (unknown) (no (unknown) (unknown) Provider: (units (unkn own) date) Guillermo John unknown) (unknown) (no (unknown) (unknown) Pt reports not (units (unknown) date) taking any meds unknown) currently (unknown) (no (unknown) (unknown) RBC 4.75 (units (unkno wn) date) unknown) (unknown) (no (unknown) (unknown) RDW 27.9 H (units (unk nown) date) unknown) (unknown) (no (unknown) (unknown) Rate: regular (units ( unknown) date) rate unknown) (unknown) (no (unknown) (unknown) Reason for (units (unk nown) date) consultation: unknown) Epidural (unknown) (no (unknown) (unknown) Resp (units (unkno wn) date) unknown) (unknown) (no (unknown) (unknown) Rhythm: regular (units (unknown) date) rhythm unknown) (unknown) (no (unknown) (unknown) Rx Instructions: (units (unknown) date) unknown) (unknown) (no (unknown) (unknown) (units (unkno wn) date) unknown) (unknown) (no (unknown) (unknown) See Rx (units (unkno wn) date) Instructions PO unknown) .COMPLEX Qty: 60 1RF (unknown) (no (unknown) (unknown) Signed (units (unkno wn) date) By:<Electronicall unknown) y signed by Guillermo John MD> (unknown) (no (unknown) (unknown) Skin (units (unkno wn) date) unknown) (unknown) (no (unknown) (unknown) Stand Alone (units (un known) date) Forms: Discharge: unknown) Care, Patient Portal/API, Stroke Signs (unknown) (no (unknown) (unknown) Status at (units (unkn own) date) Discharge unknown) (unknown) (no (unknown) (unknown) Summary (units (unkno wn) date) unknown) (unknown) (no (unknown) (unknown) Teuta (units (unkno wn) date) MD Dora unknown) (unknown) (no (unknown) (unknown) Time Patient (units (u nknown) date) Seen: 06:30 unknown) (unknown) (no (unknown) (unknown) Time Spent with (units (unknown) date) Patient unknown) (unknown) (no (unknown) (unknown) Time (units (unkno wn) date) attestation: unknown) (unknown) (no (unknown) (unknown) Time spent: Less (units (unknown) date) than 30 minutes unknown) (unknown) (no (unknown) (unknown) Total time spent (units (unknown) date) providing and/or unknown) coordinating discharge services: (unknown) (no (unknown) (unknown) Visit (units (unkno wn) date) Report/Discharge unknown) Packet (unknown) (no (unknown) (unknown) WBC 13.0 H (units (unk nown) date) unknown) (unknown) (no (unknown) (unknown) Nikita MOORE (units (un known) date) Provider unknown) (unknown) (no (unknown) (unknown) Chaka Flores, (units (unknown) date) [Physician] - unknown) 6 Weeks (unknown) (no (unknown) (unknown) [Embedded Image (units (unknown) date) Not Available] unknown) (unknown) (no (unknown) (unknown) acetaminophen (units ( unknown) date) [Children's unknown) Acetaminophen] 160 mg/5 mL Suspension (unknown) (no (unknown) (unknown) breast feeding (units (unknown) date) without unknown) difficulty. (unknown) (no (unknown) (unknown) sertraline 25 mg (units (unknown) date) tablet unknown) (unknown) (no (unknown) (unknown) tolerating a (units (u nknown) date) regular diet. unknown) (unknown) (no (unknown) (unknown) underwent (units (unkn own) date) vaginal delivery. unknown) Please see delivery notes for complete details. Social History date description facility 2022-10-19 00:00 Ex-smoker (finding) [facility] 2022-11-03 00:00 Ex-smoker (finding) [facility] 2022-11-17 00:00 Ex-smoker (finding) [facility] 2022-12-01 00:00 Ex-smoker (finding) [facility] 2022-12-07 00:00 Ex-smoker (finding) [facility] 2022-12-14 00:00 Ex-smoker (finding) [facility] 2022-12-16 00:00 Never smoked tobacco (finding) [facility] Vital Signs date measurement value units 2022-10-19 00:00 BMI 24.7 kg/m2 2022-10-19 00:00 [...] 66.22 kg 2022-11-03 00:00 weight_standard 145.99 lb 2022-11-16 00:00 BP_diastolic 65 mmHg 2022-11-16 00:00 BP_systolic 103 mmHg 2022-11-16 00:00 heart_rate 99 /min 2022-11-16 00:00 o2_saturation 99 % 2022-11-16 00:00 respiration_rate 16 /min 2022-11-16 00:00 temperature_metric 37.17 C 2022-11-16 00:00 temperature_standard 98.9 F 2022-11-17 00:00 BMI 25.8 kg/m2 2022-11-17 00:00 BP_diastolic 64 mmHg 2022-11-17 00:00 BP_systolic 112 mmHg 2022-11-17 00:00 height_metric 160.02 cm 2022-11-17 00:00 height_standard 63 in 2022-11-17 00:00 weight_metric 66.22 kg 2022-11-17 00:00 weight_standard 145.99 lb 2022-11-23 00:00 BP_diastolic 63 mmHg 2022-11-23 00:00 BP_systolic 102 mmHg 2022-11-23 00:00 heart_rate 85 /min 2022-11-23 00:00 respiration_rate 16 /min 2022-11-23 00:00 temperature_metric 36.83 C 2022-11-23 00:00 temperature_standard 98.3 F 2022-12-01 00:00 BMI 26.7 kg/m2 2022-12-01 00:00 BP_diastolic 54 mmHg 2022-12-01 00:00 BP_systolic 92 mmHg 2022-12-01 00:00 height_metric 160.02 cm 2022-12-01 00:00 height_standard 63 in 2022-12-01 00:00 weight_metric 68.49 kg 2022-12-01 00:00 weight_standard 150.99 lb 2022-12-07 00:00 BMI 26.4 kg/m2 2022-12-07 00:00 BP_diastolic 62 mmHg 2022-12-07 00:00 BP_systolic 110 mmHg 2022-12-07 00:00 height_metric 160.02 cm 2022-12-07 00:00 height_standard 63 in 2022-12-07 00:00 weight_metric 67.58 kg 2022-12-07 00:00 weight_standard 148.99 lb 2022-12-14 00:00 BMI 27.3 kg/m2 2022-12-14 00:00 BP_diastolic 66 mmHg 2022-12-14 00:00 BP_systolic 102 mmHg 2022-12-14 00:00 height_metric 160.02 cm 2022-12-14 00:00 height_standard 63 in 2022-12-14 00:00 weight_metric 69.85 kg 2022-12-14 00:00 weight_standard 153.99 lb 2022-12-19 00:00 BP_diastolic 78 mmHg 2022-12-19 00:00 BP_systolic 113 mmHg 2022-12-19 00:00 heart_rate 78 /min 2022-12-19 00:00 height_metric 160.02 cm 2022-12-19 00:00 height_standard 63 in 2022-12-19 00:00 respiration_rate 16 /min 2022-12-19 00:00 temperature_metric 37.56 C 2022-12-19 00:00 temperature_standard 99.6 F 2022-12-19 00:00 weight_metric 69.39 kg 2022-12-19 00:00 weight_standard 152.98 lb
[2023-01-02 22:29] VITALS: BP 104/73
--- NOTE | 2023-01-02 22:45 | Ultrasound Report ---
PROCEDURE: Pelvic w/Transvag+Doppler Comp INDICATIONS: cramping/bleeding/ 12/18 TECHNIQUE: Real-time scanning was performed of the pelvic organs, with image documentation. Additional endovagi nal scanning was necessary due to incomplete visualization of the adnexal and endometrial structures by transabdominal scanning. Doppler interrogation was performed of the ovaries bilaterally. COMPARISON: None. FINDINGS: Uterus: Uterus is anteverted and measures 12.7 x 5.7 x 8.5 cm. Endometrium is heterogeneous and mikel ures up to 2.0 cm in thickness. Internal vascularity is demonstrated within the endometrium on color Doppler interrogation. Ovaries: The right ovary measures 3.2 x 2.3 x 2.5 cm, with a calculated ovarian volume of 9.7 cc. T he left ovary measures 2.4 x 1.3 x 3.0 cm, with a calculated ovarian volume of 5.1 cc. Appropriate b lood flow to the ovaries with Doppler interrogation. Less than 12 follicles can be seen in each ova ry. No adnexal masses are seen. There is patent arterial and venous flow in the ovaries. Other: No pathologic free abdominal or pelvic fluid. IMPRESSION: 1. Heterogeneous thickening of the endometrium with internal vascularity most likely representing ret ained products of conception. 2. No evidence of ovarian torsion. Findings reported to Dr. Bradford at the conclusion of the study by the clinical lab technologist. Reviewed by: Caleb Smith MD on 01/02/2023 10:44 PM PDT Approved by: Caleb Smith MD on 01/02/2023 10:44 PM PDT Station ID: [id number]
[2023-01-02] MEDS ORDERED: POTASSIUM CHLORIDE 20 MEQ TABLET PO STA (23:07)
== END 2023-01-02 23:19 | disposition home or self-care (01) ==
LOC: ED 20:20
DX: O72.1 Other immediate postpartum hemorrhage (principal); O90.89 Other complications of the puerperium, not elsewhere classified; E87.6 Hypokalemia
CPT/HCPCS: 36415; 76830; 76856; 80053; 84702; 85025; 93975; 99284; A9270

== ENCOUNTER 2023-01-20 16:30 | Outpatient (CLI) | payer MEDICAID, OTHER | END 2023-01-20 16:45 | disposition home or self-care (01) | LOC: LAB.N 16:30 | PROVIDERS: ATTEND Family Medicine | DX: Z32.01 Encounter for pregnancy test, result positive (principal) | CPT/HCPCS: 36415; 84702 ==